=== PATIENT | female | born 1935 | race Caucasian/White ===

== ENCOUNTER → 2016-11-20 | Outpatient (CLI) | payer BC ==
[~2016-11-20] MED LIST: ASPCH81X PO; ATOR-22 PO; BIMA0.01 OP; CEPH500C PO; CHOL100010 PO; CLC100X PO; CLOP1TAB15 PO; DOCU-94 PO; FLV1 PO; FOLI1TAB7 PO; POLY335025 PO; VTMB122500 PO
--- NOTE | 2016-11-20 14:02 | DIAGNOSTIC IMAGING REPORT ---
BILATERAL CAROTID DOPPLER STUDY HISTORY: Venous occlusion CENTRAL RETINAL VEIN OCCLUSION COMPARISON: None. TECHNIQUE: Real-time, grayscale, and color Doppler sonography of the carotid arteries was performed. Imaging reviewed in the transverse and longitudinal planes. All measurements were calculated based on NASCET criteria. FINDINGS: Antegrade flow is seen in the bilateral vertebral arteries. The brachial pressures are hemodynamically similar. Mild plaque formation bilaterally The peak systolic velocity within the right ICA is 72. The right systolic ratio is 1.0. The peak systolic velocity within the left ICA is 70. The left systolic ratio is 1.0. IMPRESSION: No hemodynamically significant stenosis seen within the carotid arteries. Mild plaque formation bilaterally Electronically signed by: Juan Skaggs M.D. 11/20/2016 2:00 PM Dictated Date/Time: 11/20/2016 1:58 PM
--- NOTE | 2016-11-24 10:42 | CODING QUERY MEDICAL NECESSITY ---
SUPPORTING DIAGNOSIS NEEDED A supporting diagnosis is required for the test/procedure performed on this patient in order for us to be reimbursed by the patient's insurance. Please provide a supporting diagnosis for the following test/procedure listed below next to the test name along with your signature. *If there is no additional diagnosis for this patient that would support the following test/procedure please document that below next to the test/procedure. Test(s)/Procedure(s) that require a supporting diagnosis: * CAROTID DOPPLER DIAGNOSIS: * DOS: 11/20/16 Provider Signature: Date: Thank you Inez Lovell [employer] Management Once completed, please kindly fax back to [phone] For questions please call [phone]
== END | disposition home or self-care (01) ==
LOC: C.ULTR 12:52
PROVIDERS: ATTEND Internal Medicine
DX: H34.8192 Central retinal vein occlusion, unspecified eye, stable (principal)

== ENCOUNTER → 2017-02-25 | Outpatient (CLI) | payer BC ==
[~2017-02-25] MED LIST changes: +CLOP1TAB5 PO; +ELQ25 PO; +LPR25 PO; +LPT/20 PO; +VTMB12 PO
--- NOTE | 2017-02-25 13:16 | MAMMOGRAPHY REPORT ---
BILATERAL DIGITAL SCREENING MAMMOGRAM TOMOSYNTHESIS WITH CAD: 02/25/2017 CLINICAL HISTORY: Asymptomatic. Personal history of breast cancer. TECHNIQUE: Breast tomosynthesis in addition to standard 2D mammography was performed. Current study was also evaluated with a Computer Aided Detection (CAD) system. COMPARISON: Comparison is made to exams dated: 02/28/2016 mammogram, 02/25/2016 mammogram, 02/21/2015 ma mmogram, 02/20/2014 mammogram, 08/29/2013 mammogram, and 02/23/2013 mammogram - [facility] nter. BREAST COMPOSITION: The tissue of both breasts is heterogeneously dense, which may obscure small ma sses. FINDINGS: There is evidence of prior treatment at the right breast, and asymmetry of the size of the breasts, left greater than right. There are scattered benign-appearing coarse calcifications bilat erally. Vascular calcification within the right breast. No new suspicious mass, architectural dist ortion or cluster of microcalcifications is seen. IMPRESSION: ACR BI-RADS CATEGORY 1: NEGATIVE There is no mammographic evidence of malignancy. A 1 year screening mammogram is recommended. The p atient will receive written notification of the results. Approximately 10% of breast cancers are not detected with mammography. A negative mammographic repor t should not delay biopsy if a clinically suggestive mass is present. Ayala Arce M.D. ay/:02/25/2017 08:12:36 Dean Of Graduate Studies: Haylee FONSECA)(Cruz), [facility] letter sent: Normal 1/2 BI-RADS Code: ACR BI-RADS Category 1: Negative
== END | disposition home or self-care (01) ==
LOC: C.MAMM 07:16
PROVIDERS: ATTEND Internal Medicine
DX: Z12.31 Encounter for screening mammogram for malignant neoplasm of breast (principal); Z85.3 Personal history of malignant neoplasm of breast

== ENCOUNTER 2017-03-21 21:19 | Emergency (ER) | payer BC ==
[~2017-03-21] VITALS: Ht 152.4 cm; Wt 45.4 kg
[~2017-03-21 21:19] MED LIST changes: -CEPH500C PO; -CLOP1TAB5 PO; -DOCU-94 PO; -ELQ25 PO; -FOLI1TAB7 PO; -LPR25 PO; -LPT/20 PO; -VTMB12 PO
[2017-03-21 21:23] VITALS: TEMP 36.4; Ht 152.4 cm; Wt 45.4 kg
[2017-03-21 21:25] VITALS: O2SAT 98
[2017-03-21] MEDS ORDERED: SODIUM CHLORIDE 0.9% 500ML 500 ML IV STA (21:35)
--- NOTE | 2017-03-21 21:51 | EMERGENCY ROOM VISIT NOTE ---
History Report prepared by Anastasia: Magen Vizcarra Under the Supervision of: Dr. Carlos Story M.D. First contact with patient: 21:29 Chief Complaint: NEURO SYMPTOMS Stated Complaint: LEFT HAND NUMBNESS, SLURRING OF WORDS History of Present Illness The patient is an 81 year old female with a history of TIA who presents to the Emergency Room with resolved left hand numbness that occurred just prior to arrival. The patient was also told that she was slurring her speech. Nursing staff noted left-sided facial droop upon arrival. Her symptoms lasted about 20 minutes in total. She had a slight headache when she was experiencing these symptoms. Her left leg was asymptomatic. She had chest tightness earlier in the day before the onset of her neurologic symptoms. The patient had a slight cough today. The patient denies fevers, shortness of breath, or changes in urinary habits. The patient is feeling tired but did sleep fine last night. She states that she has been eating and drinking. She notes that her 's was yesterday. The patient has a history of ocular stroke and TIA. She is on Plavix and Aspirin. The patient follows up with Dr. Plascencia. Source of History: patient, nursing staff Onset: just prior to arrival Position: hand (left) Quality: numbness Timing: resolved Associated Symptoms: + headache, + cough, + chest pain, No fevers, No SOB, No urinary symptoms Review of Systems See HPI for pertinent positives & negatives. A total of 10 systems reviewed and were otherwise negative. Past Medical & Surgical Medical Problems: (1) Bilateral pulmonary embolism (2) History of osteoporosis (3) Hx of MTHFR mutation (4) Intraductal carcinoma of breast (5) TIA (transient ischemic attack) (6) Uterine prolapse Surgical Problems: (1) History of hysterectomy Family History CVA BROTHER FH: CAD (coronary artery disease) FATHER Social History Smoking Status: Never Smoker Alcohol Use: none Marital Status: Housing Status: lives with family Occupation Status: retired Current/Historical Medications Scheduled Aspirin (Aspirin Chewable), 81 MG PO QAM Atorvastatin (Lipitor), 1 TAB PO QAM Bimatoprost (Lumigan), 1 DROPS OP BID Cephalexin Monohydrate (Keflex), 500 MG PO TID Cholecalciferol (Vitamin D), 1,000 UNITS PO DAILY Clopidogrel (Plavix), 1 TAB PO QAM Cyanocobalamin (Vitamin B-12), 2,500 MCG PO QAM Docusate Sodium (Colace), 200 MG PO BID Folic Acid (Folvite), 1 MG PO DAILY Polyethylene Glycol 3350 (Miralax), 17 GM PO DAILY Allergies Coded Allergies: Tetanus Toxoid (Verified Allergy, Mild, SWELLING AND REDNESS, 12/17/15) Physical Exam Vital Signs Date Time Temp Pulse Resp B/P (MAP) Pulse Ox O2 Delivery O2 Flow Rate FiO2 03/21/17 22:41 73 03/21/17 22:27 134/84 03/21/17 22:10 143/93 03/21/17 21:49 70 20 03/21/17 21:41 73 03/21/17 21:33 143/93 03/21/17 21:25 98 Room Air 03/21/17 21:23 36.4 80 18 134/73 100 Room Air Physical Exam GENERAL: Patient is in no acute distress. HEENT: No acute trauma, normocephalic atraumatic, mucous membranes moist, no nasal congestion, no scleral icterus. NECK: No stridor, no adenopathy, no meningismus, trachea is midline. LUNGS: Clear to auscultation bilaterally, no wheeze, no rhonchi, breath sounds equal. HEART: Without murmurs gallops or rubs, regular rate and rhythm. ABDOMEN: Soft, nontender, bowel sounds positive, no hernias, no peritonitis. EXTREMITIES: No cyanosis or edema, full range of motion of all the joints without pain or difficulty, no signs for acute trauma. NEUROLOGIC: Oriented x 3, no acute motor or sensory deficits, no focal weakness , no facial droop or speech slur, no pronator drift or cerebellar dysfunction. SKIN: No rash, no jaundice, no diaphoresis. Medical Decision & Procedures ER Provider Diagnostic Interpretation: X-ray results as stated below per interpretation by me and the radiologist: Radiology results as stated below per my review and radiologist interpretation: SINGLE VIEW CHEST CLINICAL HISTORY: Strokelike symptoms. FINDINGS: An AP, portable, upright chest radiograph is compared to study dated 07/25/2014 and correlated with chest CT dated 08/23/2014. The examination is degraded by portable technique and patient rotation. The heart is mildly enlarged and there is atherosclerotic calcification of the thoracic aorta. The pulmonary vasculature is noncongested. Biapical scarring and fibrosis is similar to previous. Subpleural reticulation and subpleural densities are again noted. The largest projects over the right lung base. These are similar to the 2014 examination. There is no evidence of superimposed airspace consolidation. No pleural effusion or pneumothorax is seen. The skeletal structures are osteopenic. The bony thorax is grossly intact. IMPRESSION: 1. No acute cardiopulmonary abnormality is identified. 2. Cardiomegaly without radiographic evidence of congestive failure. 3. Chronic parenchymal changes with bilateral upper lobe scarring/fibrosis and subpleural densities are similar to prior studies dated 2013. Electronically signed by: Carlos Fernández M.D. 03/21/2017 10:15 PM Dictated Date/Time: 03/21/2017 10:[address] SCAN OF THE BRAIN WITHOUT IV CONTRAST CLINICAL HISTORY: Left hand numbness. Slurred speech. COMPARISON STUDY: CT of the brain dated 04/17/2014. TECHNIQUE: Unenhanced axial CT scan of the brain is performed from the vertex to the skull base. CT DOSE: 537.48 mGy.cm FINDINGS: Brain parenchyma: There are age-related involutional changes noting mild subcortical and periventricular microangiopathic change. There is no hemorrhage, mass effect, or evidence of acute territorial ischemia by CT criteria. Martel-white matter is preserved. No extra-axial fluid collection is seen. Ventricles, sulci, cisterns: Prominent secondary to involutional change. Intracranial vasculature: There is atherosclerotic calcification of the cavernous carotid and vertebral arteries. Calvarium: Unremarkable. Sinuses and mastoids: The visualized paranasal sinuses are clear. There are trace mastoid effusions. Orbits: The bony orbits are grossly intact. IMPRESSION: There is no hemorrhage, mass effect, or evidence of acute territorial ischemia by CT criteria. Electronically signed by: Carlos Fernández M.D. 03/21/2017 10:30 PM Dictated Date/Time: 03/21/2017 10:28 PM Laboratory Results 03/21/17 21:50 Red Blood Count 3.95, Mean Corpuscular Volume 93.7, Mean Corpuscular Hemoglobin 30.1, Mean Corpuscular Hemoglobin Concent 32.2, Mean Platelet Volume 9.3, Neutrophils (%) (Auto) 76.3, Lymphocytes (%) (Auto) 11.0, Monocytes (%) (Auto) 11.9, Eosinophils (%) (Auto) 0.4, Basophils (%) (Auto) 0.3, Neutrophils # (Auto ) 5.91, Lymphocytes # (Auto) 0.85, Monocytes # (Auto) 0.92, Eosinophils # (Auto ) 0.03, Basophils # (Auto) 0.02 03/21/17 21:50 Test 03/21/17 21:50 03/21/17 22:55 White Blood Count 7.74 K/uL (4.8-10.8) Red Blood Count 3.95 M/uL (4.2-5.4) Hemoglobin 11.9 g/dL (12.0-16.0) Hematocrit 37.0 % (37-47) Mean Corpuscular Volume 93.7 fL (80-100) Mean Corpuscular Hemoglobin 30.1 pg (25-34) Mean Corpuscular Hemoglobin Concent 32.2 g/dl (32-36) Platelet Count 232 K/uL (130-400) Mean Platelet Volume 9.3 fL (7.4-10.4) Neutrophils (%) (Auto) 76.3 % Lymphocytes (%) (Auto) 11.0 % Monocytes (%) (Auto) 11.9 % Eosinophils (%) (Auto) 0.4 % Basophils (%) (Auto) 0.3 % Neutrophils # (Auto) 5.91 K/uL (1.4-6.5) Lymphocytes # (Auto) 0.85 K/uL (1.2-3.4) Monocytes # (Auto) 0.92 K/uL (0.11-0.59) Eosinophils # (Auto) 0.03 K/uL (0-0.5) Basophils # (Auto) 0.02 K/uL (0-0.2) RDW Standard Deviation 48.4 fL (36.4-46.3) RDW Coefficient of Variation 13.9 % (11.5-14.5) Immature Granulocyte % (Auto) 0.1 % Immature Granulocyte # (Auto) 0.01 K/uL (0.00-0.02) Prothrombin Time 10.4 SECONDS (9.0-12.0) Prothromb Time International Ratio 1.0 (0.9-1.1) Activated Partial Thromboplast Time 25.8 SECONDS (21.0-31.0) Partial Thromboplastin Ratio 1.0 Anion Gap 7.0 mmol/L (3-11) Est Creatinine Clear Calc Drug Dose 40.7 ml/min Estimated GFR () 85.4 Estimated GFR (Non- 73.7 BUN/Creatinine Ratio 47.5 (10-20) Calcium Level 8.3 mg/dl (8.5-10.1) Total Creatine Kinase 139 U/L (26-192) Creatine Kinase MB 5.6 ng/ml (0.5-3.6) Creatine Kinase MB Ratio 4.0 (0-3.0) Troponin I 0.016 ng/ml (0-0.045) Chemistry Specimen Hemolysis Urine Color YELLOW Urine Appearance CLOUDY (CLEAR) Urine pH 5.5 (4.5-7.5) Urine Specific Hooper 1.024 (1.000-1.030) Urine Protein NEG (NEG) Urine Glucose (UA) NEG (NEG) Urine Ketones TRACE (NEG) Urine Occult Blood 1+ (NEG) Urine Nitrite NEG (NEG) Urine Bilirubin NEG (NEG) Urine Urobilinogen NEG (NEG) Urine Leukocyte Esterase MODERATE (NEG) Urine WBC (Auto) >30 /hpf (0-5) Urine RBC (Auto) 0-4 /hpf (0-4) Urine Hyaline Casts (Auto) 5-10 /lpf (0-5) Urine Epithelial Cells (Auto) 20-30 /lpf (0-5) Urine Bacteria (Auto) NEG (NEG) Urine Yeast (Auto) (NONE PRSENT) Laboratory results reviewed by me. Medications Administered Medications (Trade) Dose Ordered Sig/Brandy Route Start Time Stop Time Status Last Admin Dose Admin Sodium Chloride 500 ml @ 999 mls/hr Q31M STAT IV 03/21/17 21:35 03/21/17 22:05 DC 03/21/17 21:57 999 MLS/HR Cephalexin Monohydrate (Keflex Cap) 500 mg NOW STAT PO 03/22/17 00:00 03/22/17 00:01 DC 03/22/17 00:07 500 MG ECG Indication: other (neuro symptoms) Rate (beats per minute): 73 Rhythm: sinus rhythm Findings: nonspecific-ST abn (diffuse), PVC Comparison ECG Date: 2013 Change: no significant change ED Course 2129: The patient was evaluated in room C12b. A complete history and physical exam was performed. 213: NSS 500 ml @ 999 mls/hr. 2244: Discussed the findings with the patient. She would like to go home. The family is comfortable taking her home. We are still waiting on her urine labs. 2354: Reassessed the patient. Discussed the urine findings. She will be discharged. 0000: Keflex 500 mg PO. Medical Decision Differential diagnosis includes TIA or CVA, intracranial bleeding, exhaustion, electrolyte imbalance, anemia, dehydration, dysrhythmia, UTI. There is no leukocytosis or concerning anemia. No significant electrolyte abnormality or kidney failure. There is no hepatitis. Brain CT shows some older changes, no acute bleed or mass effect. Chest x-ray shows some chronic findings, no pneumonia or CHF. EKG shows a sinus rhythm, no acute ischemia. Urinalysis does suggest infection, urine culture is pending. On exam, the patient has absolutely no neurologic deficits. No speech slur. Her symptoms have resolved. The patient received IV saline and oral Keflex, she has done well. She has had no recurrence of symptoms. I had a long talk with the patient and her family, we have decided on discharge. The patient is being discharged to follow with her doctors office. She will return for any return of symptoms. She will continue her Plavix and aspirin. In short, the patient appears to have suffered a TIA, it's possible that her urinary infection could also be contributing to her presentation. She understands. I do believe she is stable for discharge. Medication Reconciliation: I attest that I have personally reviewed the patient' s current medication list. Blood Pressure Screening: Patient was found to have a mildly elevated blood pressure and will be referred to her doctor for follow-up. Impression Primary Impression: TIA (transient ischemic attack) Additional Impression: UTI (urinary tract infection) Scribe Attestation The scribe's documentation has been prepared under my direction and personally reviewed by me in its entirety. I confirm that the note above accurately reflects all work, treatment, procedures, and medical decision making performed by me. Departure Information Dispostion Home / Self-Care Prescriptions Cephalexin Monohydrate (Keflex) 500 Mg Cap 500 MG PO TID for 7 Days, #21 CAP Prov: Carlos Story M.D. 03/22/17 Referrals Neo Plascencia MD (PCP) Forms HOME CARE DOCUMENTATION FORM, IMPORTANT VISIT INFORMATION Patient Instructions My [facility] [place] Additional Instructions continue your meds as before stay well hydrated proper rest is garcia keflex 3x per day for 1 week for the urine see your fam md this week return for worsening symptoms or return of symptoms Problem Qualifiers
[2017-03-21] MEDS ORDERED: FOLI1TAB7 PO (21:59)
[2017-03-21] MEDS ORDERED: DOCU-94 PO (21:59)
[2017-03-21] MEDS ORDERED: CHOL100010 PO (21:59)
[2017-03-21 22:01] LABS: BASO % 0.3 %; BASO ABS # 0.02 K/uL (0-0.2); COMPLETE YES; EOS % 0.4 %; IG% 0.1 %; LYMPH ABS # 0.85 K/uL (1.2-3.4); MEAN CELL VOLUME 93.7 fL (80-100); MEAN CORPUSCULAR HEMOGLOBIN 30.1 pg (25-34); MEAN CORPUSCULAR HGB CONC 32.2 g/dl (32-36); MEAN PLATELET VOLUME 9.3 fL (7.4-10.4); MONO % 11.9 %; NEUT % 76.3 %; PLATELET COUNT 232 K/uL (130-400); RED BLOOD COUNT 3.95 M/uL (4.2-5.4); WHITE BLOOD COUNT 7.74 K/uL (4.8-10.8)
--- NOTE | 2017-03-21 22:17 | DIAGNOSTIC IMAGING REPORT ---
SINGLE VIEW CHEST CLINICAL HISTORY: Strokelike symptoms. FINDINGS: An AP, portable, upright chest radiograph is compared to study dated 07/25/2014 and correlated with chest CT dated 08/23/2014. The examination is degraded by portable technique and patient rotation. The heart is mildly enlarged and there is atherosclerotic calcification of the thoracic aorta. The pulmonary vasculature is noncongested. Biapical scarring and fibrosis is similar to previous. Subpleural reticulation and subpleural densities are again noted. The largest projects over the right lung base. These are similar to the 2013 examination. There is no evidence of superimposed airspace consolidation. No pleural effusion or pneumothorax is seen. The skeletal structures are osteopenic. The bony thorax is grossly intact. IMPRESSION: 1. No acute cardiopulmonary abnormality is identified. 2. Cardiomegaly without radiographic evidence of congestive failure. 3. Chronic parenchymal changes with bilateral upper lobe scarring/fibrosis and subpleural densities are similar to prior studies dated 2013. Electronically signed by: Carlos Fernández M.D. 03/21/2017 10:15 PM Dictated Date/Time: 03/21/2017 10:12 PM
[2017-03-21 22:20] LABS: BUN/CREATININE RATIO 47.5 (10-20); CREATININE 0.75 mg/dl (0.60-1.20); POTASSIUM 4.3 mmol/L (3.5-5.1)
[2017-03-21 22:23] LABS: CALCIUM 8.3 mg/dl (8.5-10.1); PROTHROMBIN TIME (PATIENT) 10.4 SECONDS (9.0-12.0)
--- NOTE | 2017-03-21 22:32 | DIAGNOSTIC IMAGING REPORT ---
CT SCAN OF THE BRAIN WITHOUT IV CONTRAST CLINICAL HISTORY: Left hand numbness. Slurred speech. COMPARISON STUDY: CT of the brain dated 04/17/2014. TECHNIQUE: Unenhanced axial CT scan of the brain is performed from the vertex to the skull base. CT DOSE: 537.48 mGy.cm FINDINGS: Brain parenchyma: There are age-related involutional changes noting mild subcortical and periventricular microangiopathic change. There is no hemorrhage, mass effect, or evidence of acute territorial ischemia by CT criteria. Martel-white matter is preserved. No extra-axial fluid collection is seen. Ventricles, sulci, cisterns: Prominent secondary to involutional change. Intracranial vasculature: There is atherosclerotic calcification of the cavernous carotid and vertebral arteries. Calvarium: Unremarkable. Sinuses and mastoids: The visualized paranasal sinuses are clear. There are trace mastoid effusions. Orbits: The bony orbits are grossly intact. IMPRESSION: There is no hemorrhage, mass effect, or evidence of acute territorial ischemia by CT criteria. Electronically signed by: Carlos Fernández M.D. 03/21/2017 10:30 PM Dictated Date/Time: 03/21/2017 10:28 PM
[2017-03-21 23:10] LABS: URINE APPEARANCE CLOUDY (CLEAR); URINE BILIRUBIN NEG (NEG); URINE COLOR YELLOW; URINE EPITHELIAL CELL AUTO 20-30 /lpf (0-5); URINE NITRITE NEG (NEG); URINE PH 5.5 (4.5-7.5); URINE SPECIFIC GRAVITY 1.024 (1.000-1.030); UROBILINOGEN NEG (NEG); ZZUR CULT IF INDIC CLEAN CATCH YES
[2017-03-21 23:19] LABS: MANUAL MICROSCOPIC REQUIRED? NO; REVIEW REQ? YES
[2017-03-22] MEDS ORDERED: CEPHALEXIN MONOHYDRATE 250 MG CAP PO STA
[2017-03-22] MEDS ORDERED: CEPH500C PO (00:02)
[2017-03-22 00:11] VITALS: BP 126/79; PULSE 72; O2SAT 100
[2017-08-18] MEDS ORDERED: LPT/20 PO (22:34)
[2017-09-16] MEDS ORDERED: ELQ25 PO (17:01)
[2017-09-16] MEDS ORDERED: LPR25 PO (17:01)
== END 2017-03-22 00:12 | disposition home or self-care (01) ==
LOC: C.EDB 21:20 → C.EDA 03-22 00:12
DX: G45.9 Transient cerebral ischemic attack, unspecified (principal); N39.0 Urinary tract infection, site not specified; R20.0 Anesthesia of skin; R47.81 Slurred speech; R29.810 Facial weakness; Z86.73 Personal history of transient ischemic attack (TIA), and cerebral infarction without residual deficits; Z86.711 Personal history of pulmonary embolism; M81.0 Age-related osteoporosis without current pathological fracture; N81.4 Uterovaginal prolapse, unspecified; Z82.49 Family history of ischemic heart disease and other diseases of the circulatory system; Z79.82 Long term (current) use of aspirin; Z79.02 Long term (current) use of antithrombotics/antiplatelets; Z79.899 Other long term (current) drug therapy

== ENCOUNTER → 2017-05-06 | Outpatient (CLI) | payer BC ==
[~2017-05-06] MED LIST changes: -CLC100X PO; +DOCU-94 PO; -FLV1 PO; +FOLI1TAB7 PO
== END | disposition home or self-care (01) ==
LOC: C.LABSPEC 16:57
PROVIDERS: ATTEND Podiatrist Foot & Ankle Surgery
DX: L60.0 Ingrowing nail (principal)

== ENCOUNTER → 2017-05-07 | Outpatient (CLI) | payer BC ==
--- NOTE | 2017-05-07 09:01 | DIAGNOSTIC IMAGING REPORT ---
BRAIN WITHOUT CONTRAST HISTORY: 81 years Female acute left-sided arm numbness with history of remote breast cancer. History of recent TIA COMPARISON: Head CT 03/21/2017 MRI brain 04/17/2014 TECHNIQUE: Multiplanar multisequence MRI of the brain was obtained without contrast FINDINGS: There is no evidence of restricted diffusion to suggest acute ischemia. Corpus callosum, brainstem, optic chiasm, pituitary gland, pineal gland and cerebellar tonsils appear unremarkable. There is increased signal within the left transverse dural venous sinus as seen on images 14 through 18 of the sagittal T1 FLAIR series and images 20 and 21 of the coronal T2 series suggesting slow flow with decreased signal seen essentially within the lumen. There is mild to moderate cerebral atrophy. No acute intracranial hemorrhage, midline shift, abnormal extra-axial collections, hydrocephalus or intracranial mass identified. Scattered areas of T2 prolongation are again seen within the subcortical, deep and periventricular white matter of the trochanters bilaterally which appears similar from comparison study dated 04/17/2014 suggesting chronic Yris ischemic changes. The remaining flow voids at the level of the skull base appear patent and normal. The orbits are symmetric. There is a trace right mastoid effusion. Mild ethmoid sinus disease noted. IMPRESSION: 1. No acute intracranial abnormality. Negative for acute ischemia. 2. Mild to moderate cerebral atrophy with background chronic microvascular ischemic changes, stable from comparison study dated 04/17/2014. 3. Mildly increased signal of the left transverse dural venous sinus suggests slow flow rather than thrombus. If of further clinical concern, this could be evaluated with an MRV of the brain. The above report was generated using voice recognition software. It may contain grammatical, syntax or spelling errors. Electronically signed by: Jonathan Helton M.D. 05/07/2017 8:59 AM Dictated Date/Time: 05/07/2017 8:49 AM
== END | disposition home or self-care (01) ==
LOC: C.MRI 07:58
PROVIDERS: ATTEND Internal Medicine
DX: G45.8 Other transient cerebral ischemic attacks and related syndromes (principal); R20.0 Anesthesia of skin

== ENCOUNTER → 2017-06-03 | Outpatient (CLI) | payer BC ==
[~2017-06-03] MED LIST changes: +OPTIRAY 320 IV PRN
--- NOTE | 2017-06-03 09:26 | DIAGNOSTIC IMAGING REPORT ---
HEAD ANGIO WITH CONTRAST CLINICAL HISTORY: 81 years-old Female presenting with mildly increased signal within the left transverse dural venous sinus on prior MR, CT for further evaluation. TECHNIQUE: Multidetector CT angiography of the head was performed after the administration of intravenous contrast. IV contrast: 119 mL of Optiray 320. A dose lowering technique was used consistent with the principles of ALARA (as low as reasonably achievable). COMPARISON: MR brain from 05/07/2017. CT DOSE (mGy.cm): The estimated cumulative dose is 76.03 mGy.cm. 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 Cortical veins and dural venous sinuses patent without evidence of thrombus. Mild atherosclerosis of the cavernous portions of the internal carotid arteries without significant narrowing. Anterior and posterior arterial circulations patent without evidence of aneurysm. No evidence of hydrocephalus. Brain parenchyma within normal limits allowing for the phase of contrast. Orbits normal. Paranasal sinuses and mastoid air cells clear. IMPRESSION: No evidence of dural venous sinus thrombosis. No vascular abnormality. Electronically signed by: Sebastián Person M.D. 06/03/2017 9:25 AM Dictated Date/Time: 06/03/2017 9:20 AM
== END | disposition home or self-care (01) ==
LOC: C.CTS 08:49
PROVIDERS: ATTEND Internal Medicine
DX: R90.89 Other abnormal findings on diagnostic imaging of central nervous system (principal)

== ENCOUNTER 2017-09-15 12:47 | Inpatient (IN) | payer BC, OTHER ==
[~2017-09-15] VITALS: Ht 152.4 cm; Wt 46.5 kg
[~2017-09-15 12:47] MED LIST changes: -ATOR-22 PO; -FOLI1TAB7 PO; +FOLI1TAB8 PO; +LPT20 PO; -OPTIRAY 320 IV PRN
--- NOTE | 2017-09-15 13:23 | EMERGENCY ROOM VISIT NOTE ---
History Report prepared by Anastasia: Lianne Mojica Under the Supervision of: Dr. Carlos Story M.D. First contact with patient: 12:54 Chief Complaint: TIA Stated Complaint: TIA, L HAND NUMBNESS, SLURRING WORDS History of Present Illness The patient is an 82 year old female who presents to the Emergency Room with complaints of persistent left hand numbness starting less than 1 hour ago. She has a history of TIA. She was feeling unwell this morning. She felt like something might have been happening with her blood pressure. A little less than 1 hour ago, she started having numbness in her left hand. The numbness has spread into her left arm and left face. She had some slurred speech. She does not have any numbness in her leg. She has had these same symptoms before with her previous TIA. Her daughter came to pick her up and found that her speech was very slurred. She is currently improved according to her daughter. The patient states that she does feel improved now. She denies any headache, chest pain, urinary symptoms, or fever. She is on Plavix and baby aspirin. She had been feeling well yesterday. She denies any history of atrial fibrillation. Source of History: patient, family Onset: less than 1 hour ago Position: arm (left) Quality: numbness Timing: other (persistent) Associated Symptoms: No fevers, No headache, No chest pain, No urinary symptoms Note: Pt reports speech slur, left face numbness. Review of Systems See HPI for pertinent positives & negatives. A total of 10 systems reviewed and were otherwise negative. Past Medical & Surgical Medical Problems: (1) Bilateral pulmonary embolism (2) History of osteoporosis (3) Hx of MTHFR mutation (4) Intraductal carcinoma of breast (5) TIA (transient ischemic attack) (6) Uterine prolapse Surgical Problems: (1) History of hysterectomy Family History CVA BROTHER FH: CAD (coronary artery disease) FATHER Social History Smoking Status: Never Smoker Alcohol Use: none Marital Status: Housing Status: lives with family Occupation Status: retired Current/Historical Medications Scheduled Aspirin (Aspirin Chewable), 81 MG PO QAM Atorvastatin (Atorvastatin Calcium), 20 MG PO DAILY Bimatoprost (Lumigan), 1 DROPS OP BID Cholecalciferol (Vitamin D), 1,000 UNITS PO DAILY Clopidogrel (Plavix), 1 TAB PO QAM Cyanocobalamin (Vitamin B-12), 2,500 MCG PO QAM Docusate Sodium (Colace), 200 MG PO BID Folic Acid (Folvite), 1 MG PO DAILY Polyethylene Glycol 3350 (Miralax), 17 GM PO DAILY Allergies Coded Allergies: Tetanus Toxoid (Verified Allergy, Mild, SWELLING AND REDNESS, 09/15/17) Physical Exam Vital Signs Date Time Temp Pulse Resp B/P (MAP) Pulse Ox O2 Delivery O2 Flow Rate FiO2 09/15/17 14:23 91 09/15/17 12:50 36.7 86 18 95/58 97 Physical Exam GENERAL: Patient is in no acute distress. HEENT: No acute trauma, normocephalic atraumatic, mucous membranes moist, no nasal congestion, no scleral icterus. NECK: No stridor, no adenopathy, no meningismus, trachea is midline. LUNGS: Clear to auscultation bilaterally, no wheeze, no rhonchi, breath sounds equal. HEART: Irregular rhythm. No murmurs. Normal rate. ABDOMEN: Soft, nontender, bowel sounds positive, no hernias, no peritonitis. EXTREMITIES: No cyanosis or edema, full range of motion of all the joints without pain or difficulty, no signs for acute trauma. NEUROLOGIC: Oriented x 3, no acute motor or sensory deficits, no focal weakness. No speech slur or facial droop. No cerebellar deficits or pronator drift. SKIN: No rash, no jaundice, no diaphoresis. Medical Decision & Procedures ER Provider Diagnostic Interpretation: Radiology results as stated below per my review and radiologist interpretation: CT SCAN OF THE BRAIN WITHOUT IV CONTRAST CLINICAL HISTORY: Strokelike symptoms. COMPARISON STUDY: CT of the brain dated 06/03/2017. An 03/21/2017 TECHNIQUE: Unenhanced axial CT scan of the brain is performed from the vertex to the skull base. The skull base was scanned twice due to motion artifact. CT DOSE: 795.47 mGy.cm FINDINGS: Brain parenchyma: There are age-related involutional changes noting mild to moderate patchy subcortical and periventricular microangiopathic change. There is no hemorrhage, mass effect, or evidence of acute territorial ischemia by CT criteria. Martel-white matter is preserved. No extra-axial fluid collection is seen. Ventricles, sulci, cisterns: Prominent secondary to involutional change. Intracranial vasculature: There is atherosclerotic calcification of the cavernous carotid and vertebral arteries. Calvarium: Unremarkable. Sinuses and mastoids: The visualized paranasal sinuses are clear. The mastoid air cells are well pneumatized. Orbits: The bony orbits are grossly intact. IMPRESSION: There is no hemorrhage, mass effect, or evidence of acute territorial ischemia by CT criteria. Electronically signed by: Carlos Fernández M.D. 09/15/2017 1:59 PM Dictated Date/Time: 09/15/2017 1:57 PM Laboratory Results 09/15/17 13:25 Red Blood Count 4.25, Mean Corpuscular Volume 92.5, Mean Corpuscular Hemoglobin 29.6, Mean Corpuscular Hemoglobin Concent 32.1, Mean Platelet Volume 9.7, Neutrophils (%) (Auto) 75.6, Lymphocytes (%) (Auto) 11.8, Monocytes (%) (Auto) 11.5, Eosinophils (%) (Auto) 0.7, Basophils (%) (Auto) 0.2, Neutrophils # (Auto ) 6.08, Lymphocytes # (Auto) 0.95, Monocytes # (Auto) 0.93, Eosinophils # (Auto ) 0.06, Basophils # (Auto) 0.02 09/15/17 13:25 Test 09/15/17 13:25 White Blood Count 8.06 K/uL (4.8-10.8) Red Blood Count 4.25 M/uL (4.2-5.4) Hemoglobin 12.6 g/dL (12.0-16.0) Hematocrit 39.3 % (37-47) Mean Corpuscular Volume 92.5 fL (80-100) Mean Corpuscular Hemoglobin 29.6 pg (25-34) Mean Corpuscular Hemoglobin Concent 32.1 g/dl (32-36) Platelet Count 282 K/uL (130-400) Mean Platelet Volume 9.7 fL (7.4-10.4) Neutrophils (%) (Auto) 75.6 % Lymphocytes (%) (Auto) 11.8 % Monocytes (%) (Auto) 11.5 % Eosinophils (%) (Auto) 0.7 % Basophils (%) (Auto) 0.2 % Neutrophils # (Auto) 6.08 K/uL (1.4-6.5) Lymphocytes # (Auto) 0.95 K/uL (1.2-3.4) Monocytes # (Auto) 0.93 K/uL (0.11-0.59) Eosinophils # (Auto) 0.06 K/uL (0-0.5) Basophils # (Auto) 0.02 K/uL (0-0.2) RDW Standard Deviation 48.1 fL (36.4-46.3) RDW Coefficient of Variation 14.3 % (11.5-14.5) Immature Granulocyte % (Auto) 0.2 % Immature Granulocyte # (Auto) 0.02 K/uL (0.00-0.02) Prothrombin Time 10.9 SECONDS (9.0-12.0) Prothromb Time International Ratio 1.0 (0.9-1.1) Activated Partial Thromboplast Time 26.9 SECONDS (21.0-31.0) Partial Thromboplastin Ratio 1.0 Anion Gap 5.0 mmol/L (3-11) Estimated GFR () 75.1 Estimated GFR (Non- 64.8 BUN/Creatinine Ratio 32.0 (10-20) Calcium Level 8.4 mg/dl (8.5-10.1) Magnesium Level 1.9 mg/dl (1.8-2.4) Total Bilirubin 0.4 mg/dl (0.2-1) Direct Bilirubin 0.1 mg/dl (0-0.2) Aspartate Amino Transf (AST/SGOT) 21 U/L (15-37) Alanine Aminotransferase (ALT/SGPT) 25 U/L (12-78) Alkaline Phosphatase 82 U/L (45-117) Troponin I < 0.015 ng/ml (0-0.045) Total Protein 6.9 gm/dl (6.4-8.2) Albumin 3.4 gm/dl (3.4-5.0) Laboratory results reviewed by me. ECG Indication: other Rate (beats per minute): 76 Rhythm: atrial fibrillation Findings: no acute ischemic change, no ectopy, other (diffuse nonspecific T wave change) Comparison ECG Date: 18-Aug-2017 Change: Atrial fibrillation now present. ED Course 1255: The patient was evaluated in room B12B. A complete history and physical exam was performed. 1426: I reevaluated the patient. She is asymptomatic and back to baseline. 1436: I discussed the patient's case with Hilaria Simpson neurology. He recommends the patient stay in the hospital. 1448: I discussed the patient's case with ROLAN Astudillo hospitalist service. The patient will be evaluated for further management. 1452: Upon reexamination the patient is stable. I discussed results and treatment plan with the patient. She verbalizes agreement and understanding. The patient will be evaluated for further management. Medical Decision Differential diagnoses considered include TIA, CVA, intracranial bleeding, electrolyte imbalance, infection, UTI, anemia. There is no leukocytosis or concerning anemia. No significant electrolyte abnormality or kidney failure. EKG shows a rate-controlled atrial fibrillation , no acute ischemia. Cardiac enzyme testing times one is not consistent with acute cardiac injury. Brain CT shows no acute bleed or mass effect. There was no coagulopathy. On exam, no focal neurologic deficits could be found. There was no speech slur. The patient was in the ED for only a short timeframe and her symptoms completely resolved. I spoke to Dr. Caro of neurology. Given the diagnosis of presumed TIA, given the new onset A. fib, given that the patient is already on aspirin and Plavix, admission/observation was felt warranted. I spoke to the patient and case management. The on-call hospitalist was consulted. Medication Reconcilliation Current Medication List: was personally reviewed by me Blood Pressure Screening Patient's blood pressure: Low blood pressure Consults Time Called: 1429 Consulting Physician: Hilaria Simpson neurology Returned Call: [phone] I discussed the patient's case with him. He recommends the patient stay in the hospital. Additional Consults: Time Called: 1440 Consulted Physician: ROLAN Astudillo hospitalist service Returned Call: [phone] Additional Comments: Discussed the patient's case. The patient will be evaluated for further management. Impression Primary Impression: TIA (transient ischemic attack) Additional Impression: Atrial fibrillation Scribe Attestation The scribe's documentation has been prepared under my direction and personally reviewed by me in its entirety. I confirm that the note above accurately reflects all work, treatment, procedures, and medical decision making performed by me. Departure Information Dispostion Being Evaluated By Hospitalist Referrals Neo Plascencia MD (PCP) Patient Instructions My [facility] Stroke History Time Last Known Well 1 hour ago Stroke t-PA Criteria Reviewed Does NOT meet criteria for t-PA Reason t-PA Not Given Treatment not indicated Problem Qualifiers
[2017-09-15 13:45] LABS: BASO % 0.2 %; BASO ABS # 0.02 K/uL (0-0.2); EOS % 0.7 %; EOS ABS # 0.06 K/uL (0-0.5); HEMATOCRIT 39.3 % (37-47); HEMOGLOBIN 12.6 g/dL (12.0-16.0); IG# 0.02 K/uL (0.00-0.02); LYMPH % 11.8 %; LYMPH ABS # 0.95 K/uL (1.2-3.4); MEAN CELL VOLUME 92.5 fL (80-100); MEAN CORPUSCULAR HEMOGLOBIN 29.6 pg (25-34); MEAN CORPUSCULAR HGB CONC 32.1 g/dl (32-36); MEAN PLATELET VOLUME 9.7 fL (7.4-10.4); MONO % 11.5 %; MONO ABS # 0.93 K/uL (0.11-0.59); NEUT % 75.6 %; NEUT ABS # 6.08 K/uL (1.4-6.5); PLATELET COUNT 282 K/uL (130-400); RED CELL DISTRIBUTION WIDTH CV 14.3 % (11.5-14.5); RED CELL DISTRIBUTION WIDTH SD 48.1 fL (36.4-46.3); WHITE BLOOD COUNT 8.06 K/uL (4.8-10.8)
[2017-09-15 13:58] LABS: PTT PATIENT 26.9 SECONDS (21.0-31.0)
--- NOTE | 2017-09-15 14:01 | DIAGNOSTIC IMAGING REPORT ---
CT SCAN OF THE BRAIN WITHOUT IV CONTRAST CLINICAL HISTORY: Strokelike symptoms. COMPARISON STUDY: CT of the brain dated 06/03/2017. An 03/21/2017 TECHNIQUE: Unenhanced axial CT scan of the brain is performed from the vertex to the skull base. The skull base was scanned twice due to motion artifact. CT DOSE: 795.47 mGy.cm FINDINGS: Brain parenchyma: There are age-related involutional changes noting mild to moderate patchy subcortical and periventricular microangiopathic change. There is no hemorrhage, mass effect, or evidence of acute territorial ischemia by CT criteria. Martel-white matter is preserved. No extra-axial fluid collection is seen. Ventricles, sulci, cisterns: Prominent secondary to involutional change. Intracranial vasculature: There is atherosclerotic calcification of the cavernous carotid and vertebral arteries. Calvarium: Unremarkable. Sinuses and mastoids: The visualized paranasal sinuses are clear. The mastoid air cells are well pneumatized. Orbits: The bony orbits are grossly intact. IMPRESSION: There is no hemorrhage, mass effect, or evidence of acute territorial ischemia by CT criteria. Electronically signed by: Carlos Fernández M.D. 09/15/2017 1:59 PM Dictated Date/Time: 09/15/2017 1:57 PM
[2017-09-15 14:07] LABS: ALBUMIN 3.4 gm/dl (3.4-5.0); BLOOD UREA NITROGEN 27 mg/dl (7-18); CALCIUM 8.4 mg/dl (8.5-10.1); CARBON DIOXIDE 28 mmol/L (21-32); CREATININE 0.83 mg/dl (0.60-1.20); GLUCOSE 121 mg/dl (70-99); POTASSIUM 3.1 mmol/L (3.5-5.1); SODIUM 137 mmol/L (136-145)
[2017-09-15 14:12] LABS: ALKALINE PHOSPHATASE 82 U/L (45-117); ALT/SGPT 25 U/L (12-78); AST/SGOT 21 U/L (15-37); TOTAL PROTEIN 6.9 gm/dl (6.4-8.2)
[2017-09-15 15:46] VITALS: BP 111/66; PULSE 78; TEMP 36.7; O2SAT 98; Ht 152.4 cm; Wt 46.5 kg
--- NOTE | 2017-09-15 15:59 | NUR ---
A: PATIENT RESTING IN BED. NO CURRENT C/O LEFT SIDED WEAKNESS OR TINGLING. PEDAL PUSHES AND HAND GRASPS EQUAL AND STRONG. NO SLURRED SPEECH NOTED. TONGUE MIDLINE. RADHA. CURRENTLY IN AFIB. VSS. CODE WORD AND FALL SHEETS COMPLETE AND PLACED ON CHART. SEE EMR FOR FULL ADMISSION ASSESSMENT.
[2017-09-15] MEDS ORDERED: ONDANSETRON INJ 2 MG/ML 2 ML VIAL IV PRN (16:45)
[2017-09-15] MEDS ORDERED: PHARMACIST DISCHARGE MED REC CONSULT PRN (16:45)
[2017-09-15 16:50] VITALS: BP 149/78; PULSE 81; PULSE 88; TEMP 36.5; O2SAT 99
--- NOTE | 2017-09-15 16:50 | NUR ---
A: Admitted to room 215 at this time in stable condition. Ambulated from wheelchair to bed. Gait is slightly unsteady. Yellow socks applied. Patient is A&Ox4. Pleasant and cooperative with care. Denies pain/discomfort. No neurological deficits. front desk monitor applied and reading Afib. Lung sounds are clear on RA. +BS. Urine not visualized at this time. No evidence of skin breakdown. 20g IV in right FA. Oriented to call quiñonez system, phone, and room environment. Patient is agreeable to ring for assistance when she needs to get OOB. Will continue to monitor.
[2017-09-15] MEDS ORDERED: HEPARIN IV BOLUS 3,000 UNIT in SYRINGE 0 ML IV SCH (17:30)
[2017-09-15] MEDS ORDERED: POTASSIUM CHLORIDE 20 MEQ TABCR PO ONE (17:30)
[2017-09-15] MEDS ORDERED: HEPARIN 25,000 UNIT/500ML D5W 500 ML IV PRN (17:30)
[2017-09-15] MEDS: ATORVASTATIN 40 MG TAB PO SCH (17:42)
[2017-09-15] MEDS ORDERED: CLOP1TAB5 PO (18:23)
[2017-09-15] MEDS ORDERED: VTMB12 PO (18:23)
--- NOTE | 2017-09-15 18:55 | History and Physical ---
History & Physical Date & Time of Service: Sep 15, 2017 at 18:24 Chief Complaint: TIA Primary Care Physician: Neo Plascencia MD History of Present Illness Source: patient, family (daughter at bedside ), clinic records, hospital records This is a 82yo F with a PMH of multiple TIAs, HLD, CRVO of R eye, MTHFR mutation and osteoporosis who presents with L sided numbness and slurred speech that begun earlier today and have since resolved. Patient woke up today feeling "funny", which she described as fatigued and lightheaded. A few hours ago, patient noticed numbness in her left hand that slowly expanded to include her L arm and L side of the face. Also noticed slurred speech. Called her daughter to bring her to ED for further evaluation. By the time patient was evaluated, symptoms had resolved completely. States that this episode is very similar in nature to previous TIAs. Per chart review, patient has been seen at [facility] for 3 TIAs since 2013.Is on dual antiplatelet therapy for h/o TIAs. Follows with Dr. Caro for neurology. Initial EKG in ER showed atrial fibrillation. Patient denies any history of A fib but endorses a bilateral PE in 2007, which prompted a hypercoagulability workup showing a MTHFR mutation. Patient is unsure if she has even been on coumadin. 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 Denies any facial droop, confusion, paresthesias, difficulty with gait. Endorses feeling generally weak today. Denies fever, chills, palpitations, CP, SOB, abdominal pain, dysuria. Of note, was most recently admitted to the [facility] surgical service from Aug.19- Aug.25 for an SBO that resolved with NG tube. Had multiple bouts of diarrhea this past Thursday after patient's colace dose was increased. Was instructed by her PCP to stop taking it. Has not had a bowel movement since Thursday. Past Medical/Surgical History Medical Problems: (1) Bilateral pulmonary embolism Status: Resolved (2) History of osteoporosis Status: Chronic (3) Hx of MTHFR mutation Status: Chronic (4) Intraductal carcinoma of breast Permanent Comment: s/p lumpectomy Status: Resolved (5) TIA (transient ischemic attack) Status: Chronic (6) Uterine prolapse Status: Chronic Surgical Problems: (1) History of hysterectomy Status: Resolved Family History CVA BROTHER FH: CAD (coronary artery disease) FATHER Social History Smoking Status: Never Smoker Alcohol Use: none Housing status: lives alone Occupational Status: retired Immunizations History of Influenza Vaccine: Yes History of Tetanus Vaccine?: Yes History of Pneumococcal: Yes Pneumococcal Date: Dec 11, 2007 History of Hepatitis B Vaccine: Unknown Multi-Drug Resistant Organisms History of MDRO: Yes Type of MDRO: VRE Allergies Coded Allergies: Tetanus Toxoid (Verified Allergy, Mild, SWELLING AND REDNESS, 09/15/17) Home Medications Scheduled Aspirin (Aspirin Chewable), 81 MG PO QAM Atorvastatin (Atorvastatin Calcium), 20 MG PO DAILY Bimatoprost (Lumigan), 1 DROPS OP BID Cholecalciferol (Vitamin D), 1,000 UNITS PO DAILY Clopidogrel Bisulfate (Plavix), 1 TAB PO DAILY Cyanocobalamin (Vitamin B-12), 1 TAB PO DAILY Docusate Sodium (Colace), 200 MG PO BID Folic Acid (Folvite), 1 MG PO DAILY Polyethylene Glycol 3350 (Miralax), 17 GM PO DAILY Review of Systems Ten systems reviewed and negative except as noted in the HPI. Physical Exam Vital Signs Date Time Temp Pulse Resp B/P (MAP) Pulse Ox O2 Delivery O2 Flow Rate FiO2 09/15/17 16:50 36.5 81 22 149/78 (101) 99 Room Air 09/15/17 16:50 99 Room Air 09/15/17 16:50 36.5 88 22 149/78 (101) 99 Room Air 09/15/17 16:25 75 20 138/81 97 Room Air 09/15/17 15:46 36.7 78 20 111/66 98 Room Air 09/15/17 15:35 78 20 111/66 97 Room Air 09/15/17 14:23 91 09/15/17 12:50 36.7 86 18 95/58 97 General Appearance: WD/WN, no apparent distress Head: normocephalic, atraumatic Eyes: normal inspection (Blind in R eye ), PERRL, EOMI, sclerae normal ENT: normal ENT inspection, hearing grossly normal, pharynx normal (moist mucous membranes ) Neck: supple, no adenopathy, thyroid normal Respiratory/Chest: chest non-tender, lungs clear, normal breath sounds, no respiratory distress, no accessory muscle use Cardiovascular: no murmur, normal peripheral pulses, + irregularly irregular Abdomen/GI: non tender, soft, no organomegaly Back: normal inspection Extremities/Musculoskelatal: normal inspection, no calf tenderness, no pedal edema, normal range of motion Neurologic/Psych: bar turner II-XII nml as tested, no motor/sensory deficits, alert, normal mood/affect, oriented x 3, + pertinent finding (Did not ambulate 2/2 fall risk ) Skin: normal color, warm/dry, no rash Diagnostics Laboratory Results 09/15/17 13:25 Red Blood Count 4.25, Mean Corpuscular Volume 92.5, Mean Corpuscular Hemoglobin 29.6, Mean Corpuscular Hemoglobin Concent 32.1, Mean Platelet Volume 9.7, Neutrophils (%) (Auto) 75.6, Lymphocytes (%) (Auto) 11.8, Monocytes (%) (Auto) 11.5, Eosinophils (%) (Auto) 0.7, Basophils (%) (Auto) 0.2, Neutrophils # (Auto ) 6.08, Lymphocytes # (Auto) 0.95, Monocytes # (Auto) 0.93, Eosinophils # (Auto ) 0.06, Basophils # (Auto) 0.02 09/15/17 13:25 Test 09/15/17 13:25 09/15/17 15:45 09/15/17 19:37 White Blood Count 8.06 K/uL (4.8-10.8) Red Blood Count 4.25 M/uL (4.2-5.4) Hemoglobin 12.6 g/dL (12.0-16.0) Hematocrit 39.3 % (37-47) Mean Corpuscular Volume 92.5 fL (80-100) Mean Corpuscular Hemoglobin 29.6 pg (25-34) Mean Corpuscular Hemoglobin Concent 32.1 g/dl (32-36) Platelet Count 282 K/uL (130-400) Mean Platelet Volume 9.7 fL (7.4-10.4) Neutrophils (%) (Auto) 75.6 % Lymphocytes (%) (Auto) 11.8 % Monocytes (%) (Auto) 11.5 % Eosinophils (%) (Auto) 0.7 % Basophils (%) (Auto) 0.2 % Neutrophils # (Auto) 6.08 K/uL (1.4-6.5) Lymphocytes # (Auto) 0.95 K/uL (1.2-3.4) Monocytes # (Auto) 0.93 K/uL (0.11-0.59) Eosinophils # (Auto) 0.06 K/uL (0-0.5) Basophils # (Auto) 0.02 K/uL (0-0.2) RDW Standard Deviation 48.1 fL (36.4-46.3) RDW Coefficient of Variation 14.3 % (11.5-14.5) Immature Granulocyte % (Auto) 0.2 % Immature Granulocyte # (Auto) 0.02 K/uL (0.00-0.02) Prothrombin Time 10.9 SECONDS (9.0-12.0) Prothromb Time International Ratio 1.0 (0.9-1.1) Activated Partial Thromboplast Time 26.9 SECONDS (21.0-31.0) Partial Thromboplastin Ratio 1.0 Anion Gap 5.0 mmol/L (3-11) Estimated GFR () 75.1 Estimated GFR (Non- 64.8 BUN/Creatinine Ratio 32.0 (10-20) Calcium Level 8.4 mg/dl (8.5-10.1) Magnesium Level 1.9 mg/dl (1.8-2.4) Total Bilirubin 0.4 mg/dl (0.2-1) Direct Bilirubin 0.1 mg/dl (0-0.2) Aspartate Amino Transf (AST/SGOT) 21 U/L (15-37) Alanine Aminotransferase (ALT/SGPT) 25 U/L (12-78) Alkaline Phosphatase 82 U/L (45-117) Total Protein 6.9 gm/dl (6.4-8.2) Albumin 3.4 gm/dl (3.4-5.0) Thyroid Stimulating Hormone (TSH) 2.240 uIu/ml (0.300-4.500) Urine Color YELLOW Urine Appearance CLEAR (CLEAR) Urine pH 5.0 (4.5-7.5) Urine Specific [place] 1.019 (1.000-1.030) Urine Protein NEG (NEG) Urine Glucose (UA) NEG (NEG) Urine Ketones NEG (NEG) Urine Occult Blood TRACE (NEG) Urine Nitrite NEG (NEG) Urine Bilirubin NEG (NEG) Urine Urobilinogen NEG (NEG) Urine Leukocyte Esterase MODERATE (NEG) Urine WBC (Auto) 5-10 /hpf (0-5) Urine RBC (Auto) 0-4 /hpf (0-4) Urine Hyaline Casts (Auto) 1-5 /lpf (0-5) Urine Epithelial Cells (Auto) >30 /lpf (0-5) Urine Bacteria (Auto) NEG (NEG) Troponin I < 0.015 ng/ml (0-0.045) Results Past 24 Hours Test 09/15/17 13:25 09/15/17 15:45 09/15/17 16:45 Range/Units White Blood Count 8.06 4.8-10.8 K/uL Red Blood Count 4.25 4.2-5.4 M/uL Hemoglobin 12.6 12.0-16.0 g/dL Hematocrit 39.3 37-47 % Mean Corpuscular Volume 92.5 80-100 fL Mean Corpuscular Hemoglobin 29.6 25-34 pg Mean Corpuscular Hemoglobin Concent 32.1 32-36 g/dl Platelet Count 282 130-400 K/uL Mean Platelet Volume 9.7 7.4-10.4 fL Neutrophils (%) (Auto) 75.6 % Lymphocytes (%) (Auto) 11.8 % Monocytes (%) (Auto) 11.5 % Eosinophils (%) (Auto) 0.7 % Basophils (%) (Auto) 0.2 % Neutrophils # (Auto) 6.08 1.4-6.5 K/uL Lymphocytes # (Auto) 0.95 1.2-3.4 K/uL Monocytes # (Auto) 0.93 0.11-0.59 K/uL Eosinophils # (Auto) 0.06 0-0.5 K/uL Basophils # (Auto) 0.02 0-0.2 K/uL RDW Standard Deviation 48.1 36.4-46.3 fL RDW Coefficient of Variation 14.3 11.5-14.5 % Immature Granulocyte % (Auto) 0.2 % Immature Granulocyte # (Auto) 0.02 0.00-0.02 K/uL Prothrombin Time 10.9 9.0-12.0 SECONDS Prothromb Time International Ratio 1.0 0.9-1.1 Activated Partial Thromboplast Time 26.9 21.0-31.0 SECONDS Partial Thromboplastin Ratio 1.0 Sodium Level 137 136-145 mmol/L Potassium Level 3.1 3.5-5.1 mmol/L Chloride Level 104 98-107 mmol/L Carbon Dioxide Level 28 21-32 mmol/L Anion Gap 5.0 3-11 mmol/L Blood Urea Nitrogen 27 7-18 mg/dl Creatinine 0.83 0.60-1.20 mg/dl Estimated GFR () 75.1 Estimated GFR (Non- 64.8 BUN/Creatinine Ratio 32.0 10-20 Random Glucose 121 70-99 mg/dl Calcium Level 8.4 8.5-10.1 mg/dl Magnesium Level 1.9 1.8-2.4 mg/dl Total Bilirubin 0.4 0.2-1 mg/dl Direct Bilirubin 0.1 0-0.2 mg/dl Aspartate Amino Transf (AST/SGOT) 21 15-37 U/L Alanine Aminotransferase (ALT/SGPT) 25 12-78 U/L Alkaline Phosphatase 82 45-117 U/L Troponin I < 0.015 0-0.045 ng/ml Total Protein 6.9 6.4-8.2 gm/dl Albumin 3.4 3.4-5.0 gm/dl Thyroid Stimulating Hormone (TSH) 2.240 0.300-4.500 uIu/ml Urine Color YELLOW Urine Appearance CLEAR CLEAR Urine pH 5.0 4.5-7.5 Urine Specific [place] 1.019 1.000-1.030 Urine Protein NEG NEG Urine Glucose (UA) NEG NEG Urine Ketones NEG NEG Urine Occult Blood TRACE NEG Urine Nitrite NEG NEG Urine Bilirubin NEG NEG Urine Urobilinogen NEG NEG Urine Leukocyte Esterase MODERATE NEG Urine WBC (Auto) 5-10 0-5 /hpf Urine RBC (Auto) 0-4 0-4 /hpf Urine Hyaline Casts (Auto) 1-5 0-5 /lpf Urine Epithelial Cells (Auto) >30 0-5 /lpf Urine Bacteria (Auto) NEG NEG Diagnostic Radiology CT head: IMPRESSION: There is no hemorrhage, mass effect, or evidence of acute territorial ischemia by CT criteria. EKG Atrial fibrillation with PVCs at 76 bpm. Non-specific T wave abnormality. Impression Assessment and Plan This is a 82yo F with a PMH of multiple TIAs, HLD, CRVO of R eye, MTHFR mutation and osteoporosis who presents with L sided numbness and slurred speech that begun earlier today and have since resolved. TIA: -L sided paresthesias, expressive aphasia now resolved -Cont aspirin, plavix, increased statin dose to 80mg daily -MRI brain without, carotid dopplers, echo with bubble study -Neuro consult -PT/OT/speech eval -Discharge planning New onset Atrial fibrillation: -No documented history of A fib -Electrolytes, TSH wnl. No sign of infection -In setting of MTHFR mutation, h/o PEs, anticoagulation is indicated -Initiated IV heparin with bolus -Cardio consulted -Monitor on tele HLD: -Fasting lipid panel -Cont statin Osteoporosis: -Cont Vit D Hypokalemia: replaced, recheck in am. Mg in am. DVT Ppx: IV heparin Code status: FULL PCP: Temo Dispo: Discharge planning per stroke set protocol. Patient also >80 and lives alone. Patient seen in collaboration with Dr. Summers. Please see addendum. ADDENDUM: I have seen and examined the patient and agree with the assessment and plan as stated above. Per my exam there was no neurologic deficit. She had some difficulty standing but this was related to chronic back pain. Cont DAPT and heparin drip pending Cards eval/plan. DO Kristopher Level of Care Telemetry Advanced Directives Existing Living Will: No Existing Power of Bsa/Aml Compliance Officer: No Resuscitation Status FULL RESUSCITATION VTE Prophylaxis VTE Risk Assessment Done? Y/N: Yes Risk Level: Moderate Given or contraindicated: Other Anticoagulation Social Service Consult >80 yr.& Lives Alone
[2017-09-15 19:34] VITALS: BP 117/68; PULSE 73; TEMP 36.7; O2SAT 98
[2017-09-15 20:00] VITALS: BP 117/68; PULSE 73; TEMP 36.7; O2SAT 98
--- NOTE | 2017-09-15 20:00 | NUR ---
A: Resting quietly and comfortably. Offers no complaints. No changes noted from initial assessment. See EMR for details. Heparin gtt is infusing at 11 ml/hr. Call quiñonez is within reach. Will continue to monitor.
[2017-09-15] MEDS: BIMATOPROST 0.01% OP SOLN 2.5 ML BTL OP SCH (20:31)
--- NOTE | 2017-09-15 22:02 | DIAGNOSTIC IMAGING REPORT ---
BRAIN WITHOUT CONTRAST HISTORY: Mental status change stroke rule out TECHNIQUE: Multiplanar multisequence MRI of the brain was performed without the use of contrast. COMPARISON STUDY: 05/07/2017 FINDINGS: There are no areas of restricted diffusion to suggest acute infarction. The midline structures are intact. The paranasal sinuses are clear. The mastoid air cells are clear. The ventricles and sulci are within normal limits for age. There is no mass, hematoma, midline shift. The major vascular flow-voids at the skull base are well maintained. Moderate age-related atrophy and chronic small vessel change unaltered compared to the prior study. IMPRESSION: No acute intracranial abnormality. Chronic and age-related change. No change from the prior study. The above report was generated using voice recognition software. It may contain grammatical, syntax or spelling errors. Electronically signed by: Juan Skaggs M.D. 09/15/2017 10:01 PM Dictated Date/Time: 09/15/2017 9:58 PM
--- NOTE | 2017-09-15 22:46 | DIAGNOSTIC IMAGING REPORT ---
CAROTID DOPPLER NECK ART HISTORY: Mental status change Stroke rule out COMPARISON: None. TECHNIQUE: Real-time, grayscale, and color Doppler sonography of the carotid arteries was performed. Imaging reviewed in the transverse and longitudinal planes. All measurements were calculated based on NASCET criteria. FINDINGS: Antegrade flow is seen in the bilateral vertebral arteries. The brachial pressures are hemodynamically similar. Moderate plaque formation bilaterally The peak systolic velocity within the right ICA is 86. The right systolic ratio is 0.95. The peak systolic velocity within the left ICA is 75. The left systolic ratio is 0.7. IMPRESSION: No hemodynamically significant stenosis seen within the carotid arteries. Moderate plaque formation bilaterally The above report was generated using voice recognition software. It may contain grammatical, syntax or spelling errors. Electronically signed by: Juan Skaggs M.D. 09/15/2017 10:45 PM Dictated Date/Time: 09/15/2017 10:44 PM
[2017-09-15 23:29] VITALS: BP 133/77; PULSE 64; TEMP 36.4; O2SAT 98
[2017-09-15 23:59] VITALS: O2SAT 95
--- NOTE | 2017-09-16 | NUR ---
A: Assessment completed. See EMR for full assessment. Patient resting in bed. AAOX4. NIH=0. Denies numbness in extremities. No complaints of chest pain or shortness of breath noted. A-Fib on monitor. HR in the 60's. VSS. Lungs clear on RA. O2 sat 98%. Heparin drip infusing at 11 ml/hr via #20 gauge in left forearm. OOB with assistx1. Call quiñonez within reach.
[2017-09-16 00:01] LABS: PTT PATIENT 32.6 SECONDS (21.0-31.0)
[2017-09-16] MEDS ORDERED: HEPARIN IV BOLUS 3,000 UNIT in SYRINGE 0 ML IV ONE (00:45)
[2017-09-16 03:47] VITALS: BP 128/64; PULSE 66; TEMP 36.6; O2SAT 99
[2017-09-16 04:00] VITALS: O2SAT 94; O2SAT 99
--- NOTE | 2017-09-16 04:00 | NUR ---
A: No change in assessment. Patient resting in bed. No complaints voiced. A-Fib on monitor. HR in he 60's. VSS. Heparin drip infusing at 13 ml/hr (650 units/hr). Call quiñonez within reach.
[2017-09-16 06:38] LABS: BASO % 0.6 %; BASO ABS # 0.03 K/uL (0-0.2); EOS % 2.1 %; HEMATOCRIT 33.2 % (37-47); HEMOGLOBIN 10.6 g/dL (12.0-16.0); LYMPH % 19.9 %; LYMPH ABS # 0.93 K/uL (1.2-3.4); MEAN CELL VOLUME 92.2 fL (80-100); MEAN CORPUSCULAR HEMOGLOBIN 29.4 pg (25-34); MEAN CORPUSCULAR HGB CONC 31.9 g/dl (32-36); MEAN PLATELET VOLUME 9.6 fL (7.4-10.4); MONO % 13.2 %; MONO ABS # 0.62 K/uL (0.11-0.59); NEUT % 64.2 %; PLATELET COUNT 208 K/uL (130-400); RED CELL DISTRIBUTION WIDTH CV 14.3 % (11.5-14.5); RED CELL DISTRIBUTION WIDTH SD 48.5 fL (36.4-46.3); WHITE BLOOD COUNT 4.68 K/uL (4.8-10.8)
[2017-09-16 06:45] LABS: HEMOGLOBIN A1C 5.7 % (4.5-5.6)
[2017-09-16 06:56] LABS: PTT PATIENT 63.5 SECONDS (21.0-31.0)
[2017-09-16 07:19] LABS: CALCIUM 8.4 mg/dl (8.5-10.1); CREATININE 0.53 mg/dl (0.60-1.20)
--- NOTE | 2017-09-16 07:30 | NUR ---
A.ID: Assessment complete. See EMR for details. A & O x 4. Denies pain, SOB or CP at this time. NIHSS = 0. RA lungs are clear throughout. A. Fib on monitor with HR in 60s-80s. No edema. + PP. Abd soft, nt, nd. + BS. Voids to the toilet. Heparin infusing at 650units/13cc/hr with no s/s of complications - NSS infusing at 5cc/hr into same 20g in R fa to maintain KVO rate. Pt denies needs/questions at this time. Discharge plan to return home - no needs/services anticipated. Will monitor.
--- NOTE | 2017-09-16 07:32 | Clinical Documentation Query ---
CLINICAL DOCUMENTATION QUERY 82 year old female who presents to the Emergency Room with complaints of persistent left hand numbness which resolved. In your clinical opinion is this patient being managed for: ( + ) "Embolic TIA d/t cerebral embolism" in the setting of Afib and MTHFR treated with anticoagulation ( ) Not Agree ( ) Other explanation of clinical findings (Please Explain) ( ) Unable to determine (Please Define) ( ) Need to Discuss The medical record reflects the following clinical findings, treatment, and risk factors. Clinical Indicators: TIA, resolved left hand numbness Treatment: IV heparin gtt, ASA, Risk Factors: Age, Afib, MTHFR, Please clarify and document your clinical opinion in the progress notes and discharge summary. Terms such as "probable", "suspected", "likely", "questionable", "possible", or "still to be ruled out" are acceptable. IF IN AGREEMENT, YOU MUST DOCUMENT ABOVE DIAGNOSTIC STATEMENT IN DAILY PROGRESS NOTES AND DISCHARGE SUMMARY. This document is not part of the patient's record. An embolic TIA occurs when a blood clot or mass of blood cells forms somewhere in the body, breaks free then becomes lodged in one of the blood vessels in the brain. Risk factors for an embolic TIA are divided into 2 categories: high risk and low risk. *The high risk category includes the following conditions: afib, rheumatic disease of the mitral/aortic valves, sick sinus syndrome, sustained A flutter, recent MD, symptomatic CHF with an EF of <30%, dilated cardiomyopathy, infectious endocarditis, s/p CABG, undiagnosed patent foramen ovale in the adult. *The low risk category includes: a calcified mitral valve and left ventricular aneurysm. The symptoms associated with an embolic TIA may mimic those associated with an embolic stroke: numbness of the extremities or face, confusion, "dimming" of vision, speech difficulty, loss of coordination, sudden severe headache. These neurological deficits typically clear within 24 hours of their onset How is it treated? Anticoagulation Thank You, Gus Wilson, HEAVEN [phone]
[2017-09-16 07:35] VITALS: BP 137/71; PULSE 68; TEMP 37.1; O2SAT 97
[2017-09-16] MEDS: ATORVASTATIN 40 MG TAB PO SCH (07:45)
[2017-09-16] MEDS: BIMATOPROST 0.01% OP SOLN 2.5 ML BTL OP SCH ×2 (07:46→07:47)
[2017-09-16] MEDS ORDERED: NURSING VERBAL MED ORDER ONE (08:00)
--- NOTE | 2017-09-16 08:32 | ECHOCARDIOGRAM REPORT ---
*NOTICE TO RECEIVING CONSTITUTION PARTY AGENCY This information is strictly Confidential and protected under [place] law. [place] law prohibits you from making any further disclosure of this information unless further disclosure is expressly permitted by the written consent of the person to whom it pertains or is authorized by law. A general authorization for the release of medical or other information is not sufficient for this purpose. Hospital accepts no responsibility if the information is made available to any other person, INCLUDING THE PATIENT. Interpretation Summary * Name: JAISON FULLER Study Date: 09/16/2017 06:37 AM BP: 128/64 mmHg * Patient Location: [facility] - [place] HR: 66 * : 1935 (M/d/yyyy) Gender: Female Height: 60 in * Age: 82 yrs Ethnicity: CA Weight: 112 lb * Ordering Physician: Eneida Malcolm * Referring Physician: Self, Referred * Performed By: Yessi Swan RDCS * * Reason For Study: AFIB * BSA: 1.5 m2 * The study was technically adequate. * -- Conclusions -- * Sinus rhythm was present at the time of the study. * The left ventricular wall motion is normal. * The qualitative LV ejection fraction =55%. * The left atrium is mildly dilated. * Aortic valve sclerosis mild, without significant aortic valvular stenosis. * There is mild to moderate mitral regurgitation. * Doppler findings do not suggest pulmonary hypertension. * Diastolic dysfunction, Grade II (pseudonormalization pattern). Procedure Details * A complete two-dimensional transthoracic echocardiogram was performed (2D, M-mode, Doppler and color flow Doppler). Left Ventricle * The left ventricle is normal in size. * There is normal left ventricular wall thickness. * Left ventricular systolic function is normal. * The qualitative LV ejection fraction =55%. * The left ventricular wall motion is normal. Right Ventricle * The right ventricle is normal size. * The right ventricular systolic function is normal as assessed by tricuspid annular plane systolic excursion (TAPSE) (normal >1.5 cm). Atria * The left atrium is mildly dilated. * Right atrial size is normal. * There is no evidence of atrial septal defect, but resolution does not allow assessment for a patent foramen ovale. Mitral Valve * The mitral valve is normal. * There is no mitral valve stenosis. * There is mild to moderate mitral regurgitation. Tricuspid Valve * The tricuspid valve is normal. * There is no tricuspid stenosis. * Significant tricuspid regurgitation is absent. * Doppler findings do not suggest pulmonary hypertension. Aortic Valve * The aortic valve is trileaflet. * Aortic valve sclerosis mild, without significant aortic valvular stenosis. * Aortic stenosis is absent. * There is no significant aortic regurgitation. Pulmonic Valve * The pulmonary valve is not well seen, but the Doppler examination is normal without significant regurgitation or stenosis. Great Vessels * The aortic root and proximal ascending aorta are normal sized. Pericardium/Pleural * There is no pericardial effusion. Great Vessels * Normal inferior vena cava diameter and respiratory variation suggests normal central venous pressure. Left Ventricular Diastolic Function * Diastolic dysfunction, Grade II (pseudonormalization pattern). MMode 2D Measurements and Calculations IVSd 1.1 cm IVSs 1.5 cm LVIDd 5.0 cm LVIDs 3.7 cm LVPWd 1.1 cm LVPWs 1.6 cm IVS/LVPW 0.99 FS 25.5 % EDV(Teich) 119.4 ml ESV(Teich) 59.7 ml EF(Teich) 50.0 % EDV(cubed) 126.6 ml ESV(cubed) 52.3 ml EF(cubed) 58.7 % % IVS thick 40.6 % % LVPW thick 46.0 % LV mass(C)d 203.7 grams LV mass(C)dI 139.7 grams/m\S\2 LV mass(C)s 223.2 grams LV mass(C)sI 153.0 grams/m\S\2 SV(Teich) 59.8 ml SI(Teich) 41.0 ml/m\S\2 SV(cubed) 74.3 ml SI(cubed) 50.9 ml/m\S\2 Ao root diam 3.0 cm Ao root area 7.2 cm\S\2 LA dimension 3.8 cm LA/Ao 1.3 LVAd ap4 22.9 cm\S\2 LVLd ap4 6.4 cm EDV(MOD-sp4) 69.3 ml EDV(sp4-el) 69.9 ml LVAs ap4 14.4 cm\S\2 LVLs ap4 5.1 cm ESV(MOD-sp4) 36.9 ml ESV(sp4-el) 34.7 ml EF(MOD-sp4) 46.7 % EF(sp4-el) 50.3 % LVAd ap2 20.9 cm\S\2 LVLd ap2 6.4 cm EDV(MOD-sp2) 60.0 ml EDV(sp2-el) 58.4 ml LVAs ap2 13.8 cm\S\2 LVLs ap2 5.8 cm ESV(MOD-sp2) 32.6 ml ESV(sp2-el) 28.2 ml EF(MOD-sp2) 45.7 % EF(sp2-el) 51.7 % LVLd %diff -0.19 % EDV(MOD-bp) 65.2 ml LVLs %diff 12.0 % ESV(MOD-bp) 36.1 ml EF(MOD-bp) 44.6 % SV(MOD-sp4) 32.4 ml SI(MOD-sp4) 22.2 ml/m\S\2 SV(MOD-sp2) 27.4 ml SI(MOD-sp2) 18.8 ml/m\S\2 SV(MOD-bp) 29.1 ml SI(MOD-bp) 19.9 ml/m\S\2 SV(sp4-el) 35.1 ml SI(sp4-el) 24.1 ml/m\S\2 SV(sp2-el) 30.2 ml SI(sp2-el) 20.7 ml/m\S\2 Doppler Measurements and Calculations MV E max luis 70.9 cm/sec MV A max luis 46.3 cm/sec MV E/A 1.5 MV dec time 0.21 sec Ao V2 max 117.8 cm/sec Ao max PG 5.5 mmHg Ao max PG (full) 3.9 mmHg LV V1 max PG 1.6 mmHg LV V1 max 63.7 cm/sec
[2017-09-16] MEDS ORDERED: ASPIRIN 81 MG CHEW PO SCH (09:00)
[2017-09-16] MEDS ORDERED: CYANOCOBALAMIN 500 MCG TAB (VIT B-12) PO SCH (09:00)
[2017-09-16] MEDS ORDERED: CLOPIDOGREL BISULFATE 75 MG TAB PO SCH (09:00)
[2017-09-16] MEDS ORDERED: CHOLECALCIFEROL 1000 INTER.UNIT TAB PO SCH (09:00)
--- NOTE | 2017-09-16 09:50 | NUR ---
Pt off floor at this time for US.
--- NOTE | 2017-09-16 10:26 | Cardiology Consultation ---
Cardiology Consultation Date of Consultation: Sep 16, 2017 History of Present Illness Alexa Johnson is a 82 year old female seen in cardiology consultation per the request of Eneida Malcolm P.A.-C. for the evaluation of atrial fibrillation. The patient's primary care provider is Dr. Neo Plascencia. She does not follow with cardiology on a chronic basis. The patient presented to the ED yesterday with complaints of generalized weakness, and left hand numbness and clumsiness as per her description. Her symptoms have completely resolved. She states this is been her typical past symptom when she has had was felt to be TIA events in the past. She's been on aspirin and clopidogrel without interruption for years. History Past Medical History: 1. Recent admission in early August, for nausea, vomiting, abdominal pain, for which she received conservative therapy for a small bowel obstruction 2. Past history of stroke 3. History of past pulmonary embolism, with apparent MTHFR mutation, Coumadin been discontinued in May 2008 completed 6 months of therapy 4. History of breast carcinoma 5. Central retinal vein occlusion with resultant visual loss Past Surgical History: 1. Vaginal hysterectomy performed 2007 2. Cystoscopy Social History: , spouse in February after a long illness Family History: Father apparently at age 76 due to stroke Breast carcinoma in her sister Review Of Systems See above for pertinent positives & negatives. A total of 10 systems reviewed and were otherwise negative. Allergies Coded Allergies: Tetanus Toxoid (Verified Allergy, Mild, SWELLING AND REDNESS, 09/15/17) Medications Reported Home Medications Medications Dose Route/Sig Max Daily Dose Days Date Category Vitamin B-12 (Cyanocobalamin) 500 Mcg Tab 1 Tab PO DAILY 09/15/17 Reported Plavix (Clopidogrel Bisulfate) 75 Mg Tab 1 Tab PO DAILY 90 09/15/17 Reported Atorvastatin Calcium (Atorvastatin) 20 Mg Tab 20 Mg PO DAILY 08/18/17 Reported Folvite (Folic Acid) 1 Mg Tab 1 Mg PO DAILY 03/21/17 Reported Colace (Docusate Sodium) 100 Mg Cap 200 Mg PO BID 03/21/17 Reported Vitamin D (Cholecalciferol) 1,000 Unit Tab 1,000 Units PO DAILY 03/21/17 Reported Lumigan (Bimatoprost) 0.01 % Rubia 1 Drops OP BID 12/17/15 Reported Aspirin Chewable (Aspirin) 81 Mg Chew 81 Mg PO QAM 12/17/15 Reported Miralax (Polyethylene Glycol 3350) 1 Pow Pow 17 Gm PO DAILY 12/27/13 Reported Physical Exam Vital Signs (Last 8hrs): Last 8 Hrs Date Time Temp Pulse Resp B/P (MAP) Pulse Ox O2 Delivery O2 Flow Rate FiO2 09/16/17 07:35 37.1 68 20 137/71 (93) 97 Room Air 09/16/17 04:00 99 Room Air 09/16/17 03:47 36.6 66 18 128/64 (85) 99 Room Air General Appearance: Alert and Oriented x3. NAD. Head: Normocephalic Atraumatic. Eyes: PERRLA, EOMI, conjunctiva and sclera clear Neck: Supple. No carotid bruits noted. No JVD. No HJD. Respiratory: Breath sounds clear to auscultation bilaterally. No w/r/r. Cardiovascular: Reg rate and rhythm. S1 and S2 noted. No murmurs, rubs, gallops. PMI non displace. Abdomen: Normal bowel sounds, soft nontender. no abdominal bruits. Extremities: No edema, no clubbing or cyanosis. distal pulses 2/4 bilaterally. Neuro: No focal deficits. Psychiatric: Normal affect. Data Last 24 Hours Test 09/15/17 13:25 09/15/17 15:45 09/15/17 19:37 09/15/17 23:28 White Blood Count 8.06 K/uL Red Blood Count 4.25 M/uL Hemoglobin 12.6 g/dL Hematocrit 39.3 % Mean Corpuscular Volume 92.5 fL Mean Corpuscular Hemoglobin 29.6 pg Mean Corpuscular Hemoglobin Concent 32.1 g/dl Platelet Count 282 K/uL Mean Platelet Volume 9.7 fL Neutrophils (%) (Auto) 75.6 % Lymphocytes (%) (Auto) 11.8 % Monocytes (%) (Auto) 11.5 % Eosinophils (%) (Auto) 0.7 % Basophils (%) (Auto) 0.2 % Neutrophils # (Auto) 6.08 K/uL Lymphocytes # (Auto) 0.95 K/uL Monocytes # (Auto) 0.93 K/uL Eosinophils # (Auto) 0.06 K/uL Basophils # (Auto) 0.02 K/uL RDW Standard Deviation 48.1 fL RDW Coefficient of Variation 14.3 % Immature Granulocyte % (Auto) 0.2 % Immature Granulocyte # (Auto) 0.02 K/uL Prothrombin Time 10.9 SECONDS Prothromb Time International Ratio 1.0 Activated Partial Thromboplast Time 26.9 SECONDS 32.6 SECONDS Partial Thromboplastin Ratio 1.0 1.3 Sodium Level 137 mmol/L Potassium Level 3.1 mmol/L Chloride Level 104 mmol/L Carbon Dioxide Level 28 mmol/L Anion Gap 5.0 mmol/L Blood Urea Nitrogen 27 mg/dl Creatinine 0.83 mg/dl Estimated GFR () 75.1 Estimated GFR (Non- 64.8 BUN/Creatinine Ratio 32.0 Random Glucose 121 mg/dl Estimated Average Glucose 117 mg/dl Hemoglobin A1c 5.7 % Calcium Level 8.4 mg/dl Magnesium Level 1.9 mg/dl Total Bilirubin 0.4 mg/dl Direct Bilirubin 0.1 mg/dl Aspartate Amino Transf (AST/SGOT) 21 U/L Alanine Aminotransferase (ALT/SGPT) 25 U/L Alkaline Phosphatase 82 U/L Troponin I < 0.015 ng/ml < 0.015 ng/ml Total Protein 6.9 gm/dl Albumin 3.4 gm/dl Thyroid Stimulating Hormone (TSH) 2.240 uIu/ml Urine Color YELLOW Urine Appearance CLEAR Urine pH 5.0 Urine Specific [place] 1.019 Urine Protein NEG Urine Glucose (UA) NEG Urine Ketones NEG Urine Occult Blood TRACE Urine Nitrite NEG Urine Bilirubin NEG Urine Urobilinogen NEG Urine Leukocyte Esterase MODERATE Urine WBC (Auto) 5-10 /hpf Urine RBC (Auto) 0-4 /hpf Urine Hyaline Casts (Auto) 1-5 /lpf Urine Epithelial Cells (Auto) >30 /lpf Urine Bacteria (Auto) NEG Test 09/16/17 06:25 White Blood Count 4.68 K/uL Red Blood Count 3.60 M/uL Hemoglobin 10.6 g/dL Hematocrit 33.2 % Mean Corpuscular Volume 92.2 fL Mean Corpuscular Hemoglobin 29.4 pg Mean Corpuscular Hemoglobin Concent 31.9 g/dl Platelet Count 208 K/uL Mean Platelet Volume 9.6 fL Neutrophils (%) (Auto) 64.2 % Lymphocytes (%) (Auto) 19.9 % Monocytes (%) (Auto) 13.2 % Eosinophils (%) (Auto) 2.1 % Basophils (%) (Auto) 0.6 % Neutrophils # (Auto) 3.00 K/uL Lymphocytes # (Auto) 0.93 K/uL Monocytes # (Auto) 0.62 K/uL Eosinophils # (Auto) 0.10 K/uL Basophils # (Auto) 0.03 K/uL RDW Standard Deviation 48.5 fL RDW Coefficient of Variation 14.3 % Immature Granulocyte % (Auto) 0.0 % Immature Granulocyte # (Auto) 0.00 K/uL Activated Partial Thromboplast Time 63.5 SECONDS Partial Thromboplastin Ratio 2.4 Sodium Level 137 mmol/L Potassium Level 4.0 mmol/L Chloride Level 107 mmol/L Carbon Dioxide Level 25 mmol/L Anion Gap 5.0 mmol/L Blood Urea Nitrogen 20 mg/dl Creatinine 0.53 mg/dl Est Creatinine Clear Calc Drug Dose 56.8 ml/min Estimated GFR () 101.1 Estimated GFR (Non- 87.2 BUN/Creatinine Ratio 38.3 Random Glucose 92 mg/dl Calcium Level 8.4 mg/dl Magnesium Level 1.9 mg/dl Triglycerides Level 49 mg/dl Cholesterol Level 117 mg/dl HDL Cholesterol 82 mg/dl LDL Cholesterol, Calculated 25 mg/dl VLDL Cholesterol, Calculated 10 mg/dl Cholesterol/HDL Ratio 1.4 EKG performed 09/15/17 are reviewed and [place] the undersigned: Atrial fibrillation at 76 bpm, mild nonspecific ST abnormality. Compared to the prior study dated 08/18/17, atrial fibrillation and replaced sinus rhythm Repeat EKG performed this morning 09/16/17 are reviewed in apparently: Normal sinus rhythm at [address] changes. Transthoracic echocardiogram performed this morning 09/16/17 and reviewed independently: Sinus rhythm was present at the time of the echocardiogram study. Left ventricular wall motion is normal, the qualitative left jugular ejection fraction = 55%. Mild left atrial dilatation is noted. Mild aortic sclerosis without stenosis is present. There is mild to moderate mitral regurgitation. Doppler findings do not suggest pulmonary hypertension. Grade 2 diastolic dysfunction is noted. Carotid duplex reveals no hemodynamic significant stenosis within the carotid arteries, moderate plaque formation noted bilaterally MRI of the brain, 09/15/17 are no areas of restricted diffusion to suggest acute infarction. Moderate age-related atrophy and chronic small vessel change noted an altered compared to the prior study from April 2017 Assessment & Plan Impression: 82-year-old female 1. Newly diagnosed paroxysmal atrial fibrillation, controlled ventricular rate , with subsequent spontaneous conversion to sinus rhythm 2. Presented with transient neurologic symptoms of left-sided numbness and slurred speech, no stroke noted on MRI 3. Past history of multiple transient ischemic attacks for the patient is on dual antiplatelet therapy with aspirin and clopidogrel 4. History of right central retinal vein occlusion with resultant visual deficit 5. Recent admission earlier this month 08/19/17 until 08/25/17 for small bowel obstruction Recommendations: Patient had apparent coffee-ground emesis which she believes was prior to her nasogastric tube was placed when she was admitted for the bowel obstruction earlier this month, but has had no recurrence. Her hemoglobin is stable. Her calculated GFR baseline is over 60 mL per minute per meter squared. Her telemetry was reviewed. The patient presented in atrial fibrillation, converted to sinus rhythm she is still in the emergency room yesterday. Overnight last night, she has for the most part been in sinus rhythm, with intermittent episodes of rate controlled atrial fibrillation. Per review of her record, this is the first time that this is been captured. It is suspicious however at that perhaps her past transient neurologic events have been related to cardioembolic etiology in the setting of recent unrecognized paroxysmal atrial fibrillation. She has no subjective symptoms of irregular heartbeat. For the most part, her baseline heart rhythm has been relatively slow in the 60 beat per minute range. At this time I recommend cautiously adding metoprolol tartrate 12.5 mg twice a day. Future considerations include perhaps transitioning her to metoprolol succinate 25 mg daily if the shorter acting formulation as tolerated. In terms of stroke prophylaxis. On admission, heparin infusion was initiated and she remains on this. Her prior to hospital dose of aspirin and clopidogrel had been continued. Ideally, from a stroke prophylaxis standpoint, anticoagulation is indicated. Her [id number] score is is at leads 5 for risk factors of being female, ager over 75, and past TIAs predicting a high risk of cardioembolic stroke. We discussed going on Coumadin which she had been on for pulmonary embolism in the remote past. She however was concerned about the inconvenience of this in terms of frequent blood draws. [facility], and her out of pocket cost for [place] is $19.50 / month. Given her recent hospitalization for small bowel obstruction, incarcerated venous duplex has been requested because she has a risk for DVT or perhaps pulmonary embolism. After the results of that test are available, I will discuss anticoagulation strategies with her again, and perhaps transitioning her from a heparin infusion to Eliquis. Although her GFR is > 50 ml /m /m2, she is over 80 years old and her weight is less than 60 kg and therefore the appropriate dose for her repeat 2.5 mg by mouth twice a day.
--- NOTE | 2017-09-16 10:38 | DIAGNOSTIC IMAGING REPORT ---
BILATERAL LOWER EXTREMITY VENOUS DOPPLER HISTORY: New atrial fibrillation. Assess for DVT. COMPARISON STUDY: None. FINDINGS: There is normal compressibility, flow, and augmentation within the bilateral lower extremity deep venous systems. IMPRESSION: No DVT within the right or left lower extremity. Electronically signed by: Last Guerrero M.D. 09/16/2017 10:37 AM Dictated Date/Time: 09/16/2017 10:36 AM
[2017-09-16 10:50] VITALS: BP 111/68; PULSE 64; TEMP 36.8; O2SAT 98
[2017-09-16] MEDS ORDERED: METOPROLOL TARTRATE 25 MG TAB PO ONE (11:00)
--- NOTE | 2017-09-16 11:55 | Cardiology Progress Note ---
Cardiology Progress Note Date of Service Sep 16, 2017. Cardiology Progress Note LEV duplex was negative for DVT. Discussed medications with patient. Plan: DC ASA. DC Plavix. DC heparin infusion 09/16/17 at 1600, and give first dose of Eliquis at that time, 1600. Dose 2 of Eliquis in am of 09/17 and Q 12 hours thereafter. OK from my standpoint for discharge to home after Dose of Eliquis administered at 1600. Dose of Eliquis is 2.5 mg Q12 hours, dose adjusted for age and weight. ASA and Plavix to be stopped to minimize bleeding risk. Follow up with cardiology in 4-6 weeks.
--- NOTE | 2017-09-16 12:00 | NUR ---
Reassessment complete. See EMR for details. No change since previous assessment. VSS. Denies needs/questions at this time. Will monitor.
--- NOTE | 2017-09-16 12:37 | Progress Note ---
Internal Med Progress Note Date of Service: Sep 16, 2017. Provider Documentation: SUBJECTIVE: The patient was seen and examined Admitted with TIA symptoms likely secondary to Embolic phenomenon Has PAF Symptoms resolved OBJECTIVE: Vital Signs-as noted below Exam: General-NO distress at rest Eyes-normal ENT-normal Neck-Supple Lungs-Clear to ausucltate bilaterally Heart-Regular Abdomen-Benign,no masses,bowel sound present Extremities-NO edema Neuro-AAOx3 No focal neuro deficit Lab data as noted below. ASSESSMENT & PLAN: This is a 82yo F with a PMH of multiple TIAs, HLD, CRVO of R eye, MTHFR mutation and osteoporosis who presents with L sided numbness and slurred speech that begun earlier today and have since resolved. TIA: Likely Embolic TIA in setting of PAF treated with anticoagulation -L sided paresthesias, expressive aphasia now resolved -Cont aspirin, plavix, increased statin dose to 80mg daily -MRI brain , carotid Doppler, ECHO-unremarkable -Neuro consult -PT/OT/speech evaluation -ordered -Hemodynamically stable without any any issue with ambulation -Discharge home this afternoon on Eliquis 2.5 mg BID ,Stop Plavix and Aspirin New onset Atrial fibrillation: -Electrolytes, TSH wnl. No sign of infection -In setting of MTHFR mutation, h/o PEs, anticoagulation is indicated -Initiated IV heparin with bolus -Cardio consulted -appreciate Input -ECHO:: Sinsus rhythm was present at the time of the study. * The left ventricular wall motion is normal. * The qualitative LV ejection fraction =55%. * The left atrium is mildly dilated. * Aortic valve sclerosis mild, without significant aortic valvular stenosis. * There is mild to moderate mitral regurgitation. * Doppler findings do not suggest pulmonary hypertension. * Diastolic dysfunction, Grade II (pseudonormalization pattern). Small dose of BB started HLD: -Fasting lipid panel-noted -Cont statin Osteoporosis: -Cont Vit D Hypokalemia: replaced, recheck in am. Mg in am. Normalized DVT Ppx: IV heparin Code status: FULL Vital Signs: Date Time Temp Pulse Resp B/P (MAP) Pulse Ox O2 Delivery O2 Flow Rate FiO2 09/16/17 10:50 36.8 64 20 111/68 (82) 98 Room Air 09/16/17 08:00 Room Air 09/16/17 07:35 37.1 68 20 137/71 (93) 97 Room Air 09/16/17 04:00 99 Room Air 09/16/17 03:47 36.6 66 18 128/64 (85) 99 Room Air 09/15/17 23:59 95 Room Air 09/15/17 23:29 36.4 64 17 133/77 (95) 98 Room Air 09/15/17 20:00 36.7 73 20 117/68 (84) 98 Room Air 09/15/17 20:00 Room Air 09/15/17 19:34 36.7 73 20 117/68 (84) 98 Room Air 09/15/17 16:50 36.5 81 22 149/78 (101) 99 Room Air 09/15/17 16:50 99 Room Air 09/15/17 16:50 36.5 88 22 149/78 (101) 99 Room Air 09/15/17 16:25 75 20 138/81 97 Room Air 09/15/17 15:46 36.7 78 20 111/66 98 Room Air 09/15/17 15:35 78 20 111/66 97 Room Air 09/15/17 14:23 91 09/15/17 12:50 36.7 86 18 95/58 97 Lab Results: Results Past 24 Hours Test 09/15/17 13:25 09/15/17 15:45 09/15/17 19:37 09/15/17 23:28 Range/Units White Blood Count 8.06 4.8-10.8 K/uL Red Blood Count 4.25 4.2-5.4 M/uL Hemoglobin 12.6 12.0-16.0 g/dL Hematocrit 39.3 37-47 % Mean Corpuscular Volume 92.5 80-100 fL Mean Corpuscular Hemoglobin 29.6 25-34 pg Mean Corpuscular Hemoglobin Concent 32.1 32-36 g/dl Platelet Count 282 130-400 K/uL Mean Platelet Volume 9.7 7.4-10.4 fL Neutrophils (%) (Auto) 75.6 % Lymphocytes (%) (Auto) 11.8 % Monocytes (%) (Auto) 11.5 % Eosinophils (%) (Auto) 0.7 % Basophils (%) (Auto) 0.2 % Neutrophils # (Auto) 6.08 1.4-6.5 K/uL Lymphocytes # (Auto) 0.95 1.2-3.4 K/uL Monocytes # (Auto) 0.93 0.11-0.59 K/uL Eosinophils # (Auto) 0.06 0-0.5 K/uL Basophils # (Auto) 0.02 0-0.2 K/uL RDW Standard Deviation 48.1 36.4-46.3 fL RDW Coefficient of Variation 14.3 11.5-14.5 % Immature Granulocyte % (Auto) 0.2 % Immature Granulocyte # (Auto) 0.02 0.00-0.02 K/uL Prothrombin Time 10.9 9.0-12.0 SECONDS Prothromb Time International Ratio 1.0 0.9-1.1 Activated Partial Thromboplast Time 26.9 32.6 21.0-31.0 SECONDS Partial Thromboplastin Ratio 1.0 1.3 Sodium Level 137 136-145 mmol/L Potassium Level 3.1 3.5-5.1 mmol/L Chloride Level 104 98-107 mmol/L Carbon Dioxide Level 28 21-32 mmol/L Anion Gap 5.0 3-11 mmol/L Blood Urea Nitrogen 27 7-18 mg/dl Creatinine 0.83 0.60-1.20 mg/dl Estimated GFR () 75.1 Estimated GFR (Non- 64.8 BUN/Creatinine Ratio 32.0 10-20 Random Glucose 121 70-99 mg/dl Estimated Average Glucose 117 mg/dl Hemoglobin A1c 5.7 4.5-5.6 % Calcium Level 8.4 8.5-10.1 mg/dl Magnesium Level 1.9 1.8-2.4 mg/dl Total Bilirubin 0.4 0.2-1 mg/dl Direct Bilirubin 0.1 0-0.2 mg/dl Aspartate Amino Transf (AST/SGOT) 21 15-37 U/L Alanine Aminotransferase (ALT/SGPT) 25 12-78 U/L Alkaline Phosphatase 82 45-117 U/L Troponin I < 0.015 < 0.015 0-0.045 ng/ml Total Protein 6.9 6.4-8.2 gm/dl Albumin 3.4 3.4-5.0 gm/dl Thyroid Stimulating Hormone (TSH) 2.240 0.300-4.500 uIu/ml Urine Color YELLOW Urine Appearance CLEAR CLEAR Urine pH 5.0 4.5-7.5 Urine Specific [place] 1.019 1.000-1.030 Urine Protein NEG NEG Urine Glucose (UA) NEG NEG Urine Ketones NEG NEG Urine Occult Blood TRACE NEG Urine Nitrite NEG NEG Urine Bilirubin NEG NEG Urine Urobilinogen NEG NEG Urine Leukocyte Esterase MODERATE NEG Urine WBC (Auto) 5-10 0-5 /hpf Urine RBC (Auto) 0-4 0-4 /hpf Urine Hyaline Casts (Auto) 1-5 0-5 /lpf Urine Epithelial Cells (Auto) >30 0-5 /lpf Urine Bacteria (Auto) NEG NEG Test 09/16/17 06:25 Range/Units White Blood Count 4.68 4.8-10.8 K/uL Red Blood Count 3.60 4.2-5.4 M/uL Hemoglobin 10.6 12.0-16.0 g/dL Hematocrit 33.2 37-47 % Mean Corpuscular Volume 92.2 80-100 fL Mean Corpuscular Hemoglobin 29.4 25-34 pg Mean Corpuscular Hemoglobin Concent 31.9 32-36 g/dl Platelet Count 208 130-400 K/uL Mean Platelet Volume 9.6 7.4-10.4 fL Neutrophils (%) (Auto) 64.2 % Lymphocytes (%) (Auto) 19.9 % Monocytes (%) (Auto) 13.2 % Eosinophils (%) (Auto) 2.1 % Basophils (%) (Auto) 0.6 % Neutrophils # (Auto) 3.00 1.4-6.5 K/uL Lymphocytes # (Auto) 0.93 1.2-3.4 K/uL Monocytes # (Auto) 0.62 0.11-0.59 K/uL Eosinophils # (Auto) 0.10 0-0.5 K/uL Basophils # (Auto) 0.03 0-0.2 K/uL RDW Standard Deviation 48.5 36.4-46.3 fL RDW Coefficient of Variation 14.3 11.5-14.5 % Immature Granulocyte % (Auto) 0.0 % Immature Granulocyte # (Auto) 0.00 0.00-0.02 K/uL Activated Partial Thromboplast Time 63.5 21.0-31.0 SECONDS Partial Thromboplastin Ratio 2.4 Sodium Level 137 136-145 mmol/L Potassium Level 4.0 3.5-5.1 mmol/L Chloride Level 107 98-107 mmol/L Carbon Dioxide Level 25 21-32 mmol/L Anion Gap 5.0 3-11 mmol/L Blood Urea Nitrogen 20 7-18 mg/dl Creatinine 0.53 0.60-1.20 mg/dl Est Creatinine Clear Calc Drug Dose 56.8 ml/min Estimated GFR () 101.1 Estimated GFR (Non- 87.2 BUN/Creatinine Ratio 38.3 10-20 Random Glucose 92 70-99 mg/dl Calcium Level 8.4 8.5-10.1 mg/dl Magnesium Level 1.9 1.8-2.4 mg/dl Triglycerides Level 49 0-150 mg/dl Cholesterol Level 117 0-200 mg/dl HDL Cholesterol 82 mg/dl LDL Cholesterol, Calculated 25 mg/dl VLDL Cholesterol, Calculated 10 mg/dl Cholesterol/HDL Ratio 1.4
--- NOTE | 2017-09-16 14:22 | NUR ---
Case management note. Pt case find as 30 day readmission. Pt was here with a sbo and discharged home self care. Spoke with pt. Pt a&o. Pt lives alone. Pt lives in a 2 story house. Pt does not use any assistive devices. Pt is independent with adl's. Explained role of family caseworker. Pt plans to return home at discharge. Pt denies any discharge needs. Case management to follow with pt.
[2017-09-16] MEDS ORDERED: APIXABAN 2.5 MG TAB PO SCH (16:00)
[2017-09-16 16:14] VITALS: BP 144/79; PULSE 64; TEMP 36.8; O2SAT 100
[2017-09-16] MEDS ORDERED: ELQ25 PO ×2 (17:01)
[2017-09-16] MEDS ORDERED: LPR25 PO ×2 (17:01)
--- NOTE | 2017-09-16 17:04 | Discharge Instructions ---
Discharge Instructions Date of Service Sep 16, 2017. Admission Reason for Admission: TIA Discharge Discharge Diagnosis / Problem: TIA likely embolic ,PAF Discharge Goals Goal(s): Prevent Disease Progression Activity Recommendations Activity Limitations: resume your previous activity . Instructions / Follow-Up Instructions / Follow-Up Dr Campuzano on 09/21/17 at 12:45 PM (appointment with Dr Plascencia is cancelled due to earlier follow up) Dr Montesinos on 10/09/17 at 7:45 AM Current Hospital Diet Patient's current hospital diet: AHA Diet (Heart Healthy) Discharge Diet Recommended Diet: AHA Diet (Heart Healthy) Pending Studies Studies pending at discharge: no Laboratory Results Hemoglobin A1c Test 09/15/17 13:25 Range/Units Estimated Average Glucose 117 mg/dl Hemoglobin A1c 5.7 H 4.5-5.6 % Lipid Panel Test 09/16/17 06:25 Range/Units Triglycerides Level 49 0-150 mg/dl Cholesterol Level 117 0-200 mg/dl HDL Cholesterol 82 mg/dl Cholesterol/HDL Ratio 1.4 LDL Cholesterol, Calculated 25 mg/dl Medical Emergencies . Who to Call and When: Medical Emergencies: If at any time you feel your situation is an emergency, please call 911 immediately. . Non-Emergent Contact Non-Emergency issues call your: Primary Care Provider (Gt) . Past History Medical & Surgical History: (1) Atrial fibrillation (2) TIA (transient ischemic attack) (3) Hx of MTHFR mutation . "Provider Documentation" section prepared by Malka Aguilar. . VTE Core Measure Inpt VTE Proph given/why not?: Other Anticoagulation
[2017-09-16 17:56] VITALS: BP 144/79; PULSE 64; TEMP 36.8; O2SAT 100
--- NOTE | 2017-09-16 18:06 | CONSULTATION REPORT ---
DATE OF CONSULTATION: 09/16/2017 HISTORY OF PRESENT ILLNESS: Alexa is 82 years old former patient of Dr. Zara Acosta now sees Dr. Neo Plascencia at [facility] and I have seen her over the years for evaluations of recurrent episodes of hand numbness, articulatory disturbances in various degrees of left-sided weakness. In the past, she had a protracted episode which we thought was due to a completed stroke yet evaluation was completely normal in terms of revealing no evidence for an acute cerebrovascular event or carotid occlusion and we asked questions whether this might have been an atypical seizure with a protracted postictal state. The EEGs were negative. She has had some recurrent episodes, in fact has now had an ischemic event in the right eye due to possibly embolic event and she has been treated with aspirin and Plavix. She had been readmitted now with a sense of malaise, fatigue, lightheadedness and numbness in her left hand and body extending to involve her left arm and left side of her face and slurred speech and by the time she arrived in the ER, she was absolutely back to her baseline. I spoke with Dr. Story the ER attending and he felt that this was pretty much like her old events with one exception i.e., EKG on this occasion reveal atrial fibrillation and she has been brought in evaluated, seen by Dr. Montesinos and the decision is to now stop the aspirin and Plavix and place her on Eliquis and to not consider Coumadin. PAST MEDICAL HISTORY: Reveals a recent small-bowel obstruction resolving with NG tube and multiple bouts of diarrhea recently. 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 PAST SURGICAL HISTORY: She has had history of hysterectomy and small-bowel obstruction that did not require surgical intervention. FAMILY HISTORY: Reveals that her brother of a CVA. Her father had coronary disease. SOCIAL HISTORY: Reveals her to be a never smoker, not a consumer of ethanol. She currently lives alone with children lives close by. She is retired. She is recently . IMMUNIZATIONS: Up-to-date. There is no history of drug resistant organisms. ALLERGIES: SHE HAS ALLERGIES JUST TO TETANUS TOXOID. HOME MEDICATIONS: Include aspirin, atorvastatin, Lumigan, vitamin D, Plavix, vitamin B12, Colace, folic acid, polyethylene glycol. The aspirin and Plavix are going to be stopped in favor or Eliquis on discharge. REVIEW OF SYSTEMS: With the exception of the recent diarrhea and small-bowel obstruction, have been unremarkable. She has had no fever, sweats or chills, weight loss, weight gain, new issues referable to head, eyes, ears, nose and throat, cardiovascular, pulmonary, gastrointestinal, genitourinary systems other than the event which precipitated the admission and the recent small-bowel obstruction. PHYSICAL EXAMINATION: VITAL SIGNS: Blood pressure 149/78, pulse was 81, respirations were 22. GENERAL: She was a thin woman who had some slight hearing impairment but was in otherwise no apparent distress and had pretty clear speech and no focal neurologic findings. HEENT: Unremarkable. LUNGS: Clear. HEART: Had an irregularly irregular rhythm without murmur. ABDOMEN: Soft, nontender. EXTREMITIES: Free of edema, had no calf tenderness and good pulses. NEUROLOGIC: Today neurologically she is awake, alert. She is a little confused at times with going over medications. Maybe a right upper motor neuron facial asymmetry, which is old. There are no visual field cuts. Speech is clear. There is no aphasic tendencies or articulatory disturbance. There is no drift or pronation sign, tremor, tics, choreiform activity. Reflexes are 1+ symmetrical with the exception of ankle jerks which are a little hypoactive. Toes are downgoing. No Leesa's signs are seen. Muscle strength testing is normal and sensation is intact with the exception of some age-dependent vibratory loss over the lower extremities. MRI scan shows no acute events only some old ischemic changes consistent with her prior small vessel disease and her EKG did show atrial fibrillation. Dr. Montesinos has gone over her case and has elected to put her on Eliquis. At this time, I totally agree with this management. I think she could go home if she can comprehend the medications. Dr. Aguilar is going to go over this several times to be sure she is clear on this. She will have follow up with cardiology and her primary care physician and neurology can see her as needed. Luckily, this time the events were again transient and left no horton either clinically or on imaging studies. ELLA
--- NOTE | 2017-09-16 18:32 | NUR ---
discharge instructions reviewed with patient. verbalized understanding. prescription given to patient. IV site removed. volunteer to escort patient downstairs for her ride.
--- NOTE | 2017-09-16 20:42 | Pharmacy Progress Note ---
Pharmacist Stroke Counseling Date of Service Sep 16, 2017. Scope Pharmacy has been consulted to provide medication discharge counseling for this patient admitted with ischemic stroke/hemorrhagic stroke/ transient ischemic attack as per the Pharmacist Discharge Counseling for Stroke Patients Protocol. Medications on Discharge New Medications: Apixaban (Eliquis) 2.5 Mg Tab 2.5 MG PO Q12H for 30 Days, #60 TAB Prescription is called in by Dr Montesinos Metoprolol Tartrate (Lopressor) 25 Mg Tab 12.5 MG PO BID for 30 Days, #30 TAB Continued Medications: Atorvastatin (Atorvastatin Calcium) 20 Mg Tab 20 MG PO DAILY Bimatoprost (Lumigan) 0.01 % Rubia 1 DROPS OP BID, #2.5 ML 3 Refills Cholecalciferol (Vitamin D) 1,000 Unit Tab 1000 UNITS PO DAILY Cyanocobalamin (Vitamin B-12) 500 Mcg Tab 1 TAB PO DAILY Docusate Sodium (Colace) 100 Mg Cap 200 MG PO BID Folic Acid (Folvite) 1 Mg Tab 1 MG PO DAILY Polyethylene Glycol 3350 (Miralax) 1 Pow Pow 17 GM PO DAILY Discontinued Medications: Aspirin (Aspirin Chewable) 81 Mg Chew 81 MG PO QAM Clopidogrel Bisulfate (Plavix) 75 Mg Tab 1 TAB PO DAILY for 90 Days, #90 TAB 1 Refill Action The above medications, specifically ones for stroke treatment/prophylaxis, have been reviewed in detail with the patient and/or patient front office representative(s) prior to discharge. This includes indication, common adverse reactions, drug interactions, and medication administration. Medication counseling has been employed using the teach-back method to ensure understanding. Outcome The patient and/or patient front office representative(s) have demonstrated understanding of the medications. Please note, they are aware that the pharmacist will call them within 72 hours post-discharge to confirm that the appropriate medications are being taken and answer any further medication related questions the patient might have at that time. Contact information Individual to be contacted: Alexa Johnson (patient) Relationship to patient (if applicable): Self Phone number: [phone] Best time to call: Anytime Additional comments: - Met with patient at bedside prior to discharge. According to nursing, multiple providers as well as nursing staff talked with the patient to review her medications earlier throughout the day. However, her answers regarding what she knew about her new medications were vague. It appears she may have trouble with her memory, possibly difficulty retaining information. Frequently asked if the information would be provided to her in written form during counseling. Assured her that information discussed would be in her discharge packet as well as in pamphlets provided by her pharmacy when she picks up Rx's. At end of counseling, she was able to repeat back the major counseling points (i.e. dosing, major adverse effects to monitor) and expressed appreciation for counseling. She has had multiple TIA's in the past. Most recent event thought to be thromboembolic with finding of AF on EKG. - Reviewed indication, mechanism, and major adverse effects of Eliquis and metoprolol. She is aware of importance to cigar packer and picker Rx as soon as possible after discharge; she plans to go tonight. She will discard Plavix and aspirin, aware to D/C as she is now on Eliquis. Explained difference between Plavix/ASA and Eliquis. - Patient understands to monitor for s/sx bleeding, bruising. Advised fall precaution. Eliquis cost is OK per patient (she states she was told it would be ~$9/month). - She does not have a BP cuff. Advised her it would be a good idea to obtain one to monitor BP/HR. Cautioned on orthostasis and how to decr' risk. Advised to monitor for dizziness, call provider if any problems. - She does not have a tablet splitter. Advised her to purchase one at pharmacy since metoprolol dose is 12.5mg (1/2 tablet). - Patient has pill box at home, reports good adherence. Thank you for allowing pharmacy to be involved in the care of this patient. Please call [phone] or [phone] with any additional questions
[2017-09-16] MEDS ORDERED: BIMATOPROST 0.01% OP SOLN 2.5 ML BTL OP SCH (21:00)
[2017-09-16] MEDS ORDERED: METOPROLOL TARTRATE 25 MG TAB PO SCH (21:00)
--- NOTE | 2017-09-17 07:28 | Discharge Summary ---
Discharge Summary Date of Service Sep 17, 2017. Discharge Summary Admission Date: Sep 15, 2017 at 15:57 Discharge Date: Sep 16, 2017 Discharge Disposition: Home Principal Diagnosis: TIA likely embolic ,PAF Secondary Diagnoses/Problems: Please see H&P and Hospital progress note Consultations: Cardiology and Neurology Medication Reconciliation New Medications: Apixaban (Eliquis) 2.5 Mg Tab 2.5 MG PO Q12H for 30 Days, #60 TAB Prescription is called in by Dr Montesinos Metoprolol Tartrate (Lopressor) 25 Mg Tab 12.5 MG PO BID for 30 Days, #30 TAB Continued Medications: Atorvastatin (Atorvastatin Calcium) 20 Mg Tab 20 MG PO DAILY Bimatoprost (Lumigan) 0.01 % Rubia 1 DROPS OP BID, #2.5 ML 3 Refills Cholecalciferol (Vitamin D) 1,000 Unit Tab 1000 UNITS PO DAILY Cyanocobalamin (Vitamin B-12) 500 Mcg Tab 1 TAB PO DAILY Docusate Sodium (Colace) 100 Mg Cap 200 MG PO BID Folic Acid (Folvite) 1 Mg Tab 1 MG PO DAILY Polyethylene Glycol 3350 (Miralax) 1 Pow Pow 17 GM PO DAILY Discontinued Medications: Aspirin (Aspirin Chewable) 81 Mg Chew 81 MG PO QAM Clopidogrel Bisulfate (Plavix) 75 Mg Tab 1 TAB PO DAILY for 90 Days, #90 TAB 1 Refill Admission Information HPI (per Admitting provider): This is a 82yo F with a PMH of multiple TIAs, HLD, CRVO of R eye, MTHFR mutation and osteoporosis who presents with L sided numbness and slurred speech that begun earlier today and have since resolved. Patient woke up today feeling "funny", which she described as fatigued and lightheaded. A few hours ago, patient noticed numbness in her left hand that slowly expanded to include her L arm and L side of the face. Also noticed slurred speech. Called her daughter to bring her to ED for further evaluation. By the time patient was evaluated, symptoms had resolved completely. States that this episode is very similar in nature to previous TIAs. Per chart review, patient has been seen at [facility] for 3 TIAs since 2013.Is on dual antiplatelet therapy for h/o TIAs. Follows with Dr. Caro for neurology. Initial EKG in ER showed atrial fibrillation. Patient denies any history of A fib but endorses a bilateral PE in 2007, which prompted a hypercoagulability workup showing a MTHFR mutation. Patient is unsure if she has even been on coumadin. 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 Denies any facial droop, confusion, paresthesias, difficulty with gait. Endorses feeling generally weak today. Denies fever, chills, palpitations, CP, SOB, abdominal pain, dysuria. Of note, was most recently admitted to the [facility] surgical service from Aug.19- Aug.25 for an SBO that resolved with NG tube. Had multiple bouts of diarrhea this past Thursday after patient's colace dose was increased. Was instructed by her PCP to stop taking it. Has not had a bowel movement since Thursday. Past Medical/Surgical History Medical Problems: (1) Bilateral pulmonary embolism Status: Resolved (2) History of osteoporosis Status: Chronic (3) Hx of MTHFR mutation Status: Chronic (4) Intraductal carcinoma of breast Permanent Comment: s/p lumpectomy Status: Resolved (5) TIA (transient ischemic attack) Status: Chronic (6) Uterine prolapse Status: Chronic Surgical Problems: (1) History of hysterectomy Status: Resolved Family History CVA BROTHER FH: CAD (coronary artery disease) FATHER Social History Smoking Status: Never Smoker Alcohol Use: none Housing status: lives alone Occupational Status: retired Immunizations History of Influenza Vaccine: Yes History of Tetanus Vaccine?: Yes History of Pneumococcal: Yes Pneumococcal Date: Dec 11, 2007 History of Hepatitis B Vaccine: Unknown Multi-Drug Resistant Organisms History of MDRO: Yes Type of MDRO: VRE Allergies Coded Allergies: Tetanus Toxoid (Verified Allergy, Mild, SWELLING AND REDNESS, 09/15/17) Home Medications Scheduled Aspirin (Aspirin Chewable), 81 MG PO QAM Atorvastatin (Atorvastatin Calcium), 20 MG PO DAILY Bimatoprost (Lumigan), 1 DROPS OP BID Cholecalciferol (Vitamin D), 1,000 UNITS PO DAILY Clopidogrel Bisulfate (Plavix), 1 TAB PO DAILY Cyanocobalamin (Vitamin B-12), 1 TAB PO DAILY Docusate Sodium (Colace), 200 MG PO BID Folic Acid (Folvite), 1 MG PO DAILY Polyethylene Glycol 3350 (Miralax), 17 GM PO DAILY Review of Systems Ten systems reviewed and negative except as noted in the HPI. Physical Exam Vital Signs Date Time Temp Pulse Resp B/P (MAP) Pulse Ox O2 Delivery O2 Flow Rate FiO2 09/15/17 16:50 36.5 81 22 149/78 (101) 99 Room Air 09/15/17 16:50 99 Room Air 09/15/17 16:50 36.5 88 22 149/78 (101) 99 Room Air 09/15/17 16:25 75 20 138/81 97 Room Air 09/15/17 15:46 36.7 78 20 111/66 98 Room Air 09/15/17 15:35 78 20 111/66 97 Room Air 09/15/17 14:23 91 09/15/17 12:50 36.7 86 18 95/58 97 General Appearance: WD/WN, no apparent distress Head: normocephalic, atraumatic Eyes: normal inspection (Blind in R eye ), PERRL, EOMI, sclerae normal ENT: normal ENT inspection, hearing grossly normal, pharynx normal (moist mucous membranes ) Neck: supple, no adenopathy, thyroid normal Respiratory/Chest: chest non-tender, lungs clear, normal breath sounds, no respiratory distress, no accessory muscle use Cardiovascular: no murmur, normal peripheral pulses, + irregularly irregular Abdomen/GI: non tender, soft, no organomegaly Back: normal inspection Extremities/Musculoskelatal: normal inspection, no calf tenderness, no pedal edema, normal range of motion 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, no motor/sensory deficits, alert, normal mood/affect, oriented x 3, + pertinent finding (Did not ambulate 2/2 fall risk ) Skin: normal color, warm/dry, no rash Diagnostics Laboratory Results 09/15/17 13:25 Red Blood Count 4.25, Mean Corpuscular Volume 92.5, Mean Corpuscular Hemoglobin 29.6, Mean Corpuscular Hemoglobin Concent 32.1, Mean Platelet Volume 9.7, Neutrophils (%) (Auto) 75.6, Lymphocytes (%) (Auto) 11.8, Monocytes (%) (Auto) 11.5, Eosinophils (%) (Auto) 0.7, Basophils (%) (Auto) 0.2, Neutrophils # (Auto ) 6.08, Lymphocytes # (Auto) 0.95, Monocytes # (Auto) 0.93, Eosinophils # (Auto ) 0.06, Basophils # (Auto) 0.02 09/15/17 13:25 Test 09/15/17 13:25 09/15/17 15:45 09/15/17 19:37 White Blood Count 8.06 K/uL (4.8-10.8) Red Blood Count 4.25 M/uL (4.2-5.4) Hemoglobin 12.6 g/dL (12.0-16.0) Hematocrit 39.3 % (37-47) Mean Corpuscular Volume 92.5 fL (80-100) Mean Corpuscular Hemoglobin 29.6 pg (25-34) Mean Corpuscular Hemoglobin Concent 32.1 g/dl (32-36) Platelet Count 282 K/uL (130-400) Mean Platelet Volume 9.7 fL (7.4-10.4) Neutrophils (%) (Auto) 75.6 % Lymphocytes (%) (Auto) 11.8 % Monocytes (%) (Auto) 11.5 % Eosinophils (%) (Auto) 0.7 % Basophils (%) (Auto) 0.2 % Neutrophils # (Auto) 6.08 K/uL (1.4-6.5) Lymphocytes # (Auto) 0.95 K/uL (1.2-3.4) Monocytes # (Auto) 0.93 K/uL (0.11-0.59) Eosinophils # (Auto) 0.06 K/uL (0-0.5) Basophils # (Auto) 0.02 K/uL (0-0.2) RDW Standard Deviation 48.1 fL (36.4-46.3) RDW Coefficient of Variation 14.3 % (11.5-14.5) Immature Granulocyte % (Auto) 0.2 % Immature Granulocyte # (Auto) 0.02 K/uL (0.00-0.02) Prothrombin Time 10.9 SECONDS (9.0-12.0) Prothromb Time International Ratio 1.0 (0.9-1.1) Activated Partial Thromboplast Time 26.9 SECONDS (21.0-31.0) Partial Thromboplastin Ratio 1.0 Anion Gap 5.0 mmol/L (3-11) Estimated GFR () 75.1 Estimated GFR (Non- 64.8 BUN/Creatinine Ratio 32.0 (10-20) Calcium Level 8.4 mg/dl (8.5-10.1) Magnesium Level 1.9 mg/dl (1.8-2.4) Total Bilirubin 0.4 mg/dl (0.2-1) Direct Bilirubin 0.1 mg/dl (0-0.2) Aspartate Amino Transf (AST/SGOT) 21 U/L (15-37) Alanine Aminotransferase (ALT/SGPT) 25 U/L (12-78) Alkaline Phosphatase 82 U/L (45-117) Total Protein 6.9 gm/dl (6.4-8.2) Albumin 3.4 gm/dl (3.4-5.0) Thyroid Stimulating Hormone (TSH) 2.240 uIu/ml (0.300-4.500) Urine Color YELLOW Urine Appearance CLEAR (CLEAR) Urine pH 5.0 (4.5-7.5) Urine Specific [place] 1.019 (1.000-1.030) Urine Protein NEG (NEG) Urine Glucose (UA) NEG (NEG) Urine Ketones NEG (NEG) Urine Occult Blood TRACE (NEG) Urine Nitrite NEG (NEG) Urine Bilirubin NEG (NEG) Urine Urobilinogen NEG (NEG) Urine Leukocyte Esterase MODERATE (NEG) Urine WBC (Auto) 5-10 /hpf (0-5) Urine RBC (Auto) 0-4 /hpf (0-4) Urine Hyaline Casts (Auto) 1-5 /lpf (0-5) Urine Epithelial Cells (Auto) >30 /lpf (0-5) Urine Bacteria (Auto) NEG (NEG) Troponin I < 0.015 ng/ml (0-0.045) Results Past 24 Hours Test 09/15/17 13:25 09/15/17 15:45 09/15/17 16:45 Range/Units White Blood Count 8.06 4.8-10.8 K/uL Red Blood Count 4.25 4.2-5.4 M/uL Hemoglobin 12.6 12.0-16.0 g/dL Hematocrit 39.3 37-47 % Mean Corpuscular Volume 92.5 80-100 fL Mean Corpuscular Hemoglobin 29.6 25-34 pg Mean Corpuscular Hemoglobin Concent 32.1 32-36 g/dl Platelet Count 282 130-400 K/uL Mean Platelet Volume 9.7 7.4-10.4 fL Neutrophils (%) (Auto) 75.6 % Lymphocytes (%) (Auto) 11.8 % Monocytes (%) (Auto) 11.5 % Eosinophils (%) (Auto) 0.7 % Basophils (%) (Auto) 0.2 % Neutrophils # (Auto) 6.08 1.4-6.5 K/uL Lymphocytes # (Auto) 0.95 1.2-3.4 K/uL Monocytes # (Auto) 0.93 0.11-0.59 K/uL Eosinophils # (Auto) 0.06 0-0.5 K/uL Basophils # (Auto) 0.02 0-0.2 K/uL RDW Standard Deviation 48.1 36.4-46.3 fL RDW Coefficient of Variation 14.3 11.5-14.5 % Immature Granulocyte % (Auto) 0.2 % Immature Granulocyte # (Auto) 0.02 0.00-0.02 K/uL Prothrombin Time 10.9 9.0-12.0 SECONDS Prothromb Time International Ratio 1.0 0.9-1.1 Activated Partial Thromboplast Time 26.9 21.0-31.0 SECONDS Partial Thromboplastin Ratio 1.0 Sodium Level 137 136-145 mmol/L Potassium Level 3.1 3.5-5.1 mmol/L Chloride Level 104 98-107 mmol/L Carbon Dioxide Level 28 21-32 mmol/L Anion Gap 5.0 3-11 mmol/L Blood Urea Nitrogen 27 7-18 mg/dl Creatinine 0.83 0.60-1.20 mg/dl Estimated GFR () 75.1 Estimated GFR (Non- 64.8 BUN/Creatinine Ratio 32.0 10-20 Random Glucose 121 70-99 mg/dl Calcium Level 8.4 8.5-10.1 mg/dl Magnesium Level 1.9 1.8-2.4 mg/dl Total Bilirubin 0.4 0.2-1 mg/dl Direct Bilirubin 0.1 0-0.2 mg/dl Aspartate Amino Transf (AST/SGOT) 21 15-37 U/L Alanine Aminotransferase (ALT/SGPT) 25 12-78 U/L Alkaline Phosphatase 82 45-117 U/L Troponin I < 0.015 0-0.045 ng/ml Total Protein 6.9 6.4-8.2 gm/dl Albumin 3.4 3.4-5.0 gm/dl Thyroid Stimulating Hormone (TSH) 2.240 0.300-4.500 uIu/ml Urine Color YELLOW Urine Appearance CLEAR CLEAR Urine pH 5.0 4.5-7.5 Urine Specific [place] 1.019 1.000-1.030 Urine Protein NEG NEG Urine Glucose (UA) NEG NEG Urine Ketones NEG NEG Urine Occult Blood TRACE NEG Urine Nitrite NEG NEG Urine Bilirubin NEG NEG Urine Urobilinogen NEG NEG Urine Leukocyte Esterase MODERATE NEG Urine WBC (Auto) 5-10 0-5 /hpf Urine RBC (Auto) 0-4 0-4 /hpf Urine Hyaline Casts (Auto) 1-5 0-5 /lpf Urine Epithelial Cells (Auto) >30 0-5 /lpf Urine Bacteria (Auto) NEG NEG Diagnostic Radiology CT head: IMPRESSION: There is no hemorrhage, mass effect, or evidence of acute territorial ischemia by CT criteria. EKG Atrial fibrillation with PVCs at 76 bpm. Non-specific T wave abnormality. Impression Assessment and Plan This is a 82yo F with a PMH of multiple TIAs, HLD, CRVO of R eye, MTHFR mutation and osteoporosis who presents with L sided numbness and slurred speech that begun earlier today and have since resolved. TIA: -L sided paresthesias, expressive aphasia now resolved -Cont aspirin, plavix, increased statin dose to 80mg daily -MRI brain without, carotid dopplers, echo with bubble study -Neuro consult -PT/OT/speech eval -Discharge planning New onset Atrial fibrillation: -No documented history of A fib -Electrolytes, TSH wnl. No sign of infection -In setting of MTHFR mutation, h/o PEs, anticoagulation is indicated -Initiated IV heparin with bolus -Cardio consulted -Monitor on tele HLD: -Fasting lipid panel -Cont statin Osteoporosis: -Cont Vit D Hypokalemia: replaced, recheck in am. Mg in am. DVT Ppx: IV heparin Code status: FULL PCP: Temo Dispo: Discharge planning per stroke set protocol. Patient also >80 and lives alone. Patient seen in collaboration with Dr. Summers. Please see addendum. ADDENDUM: I have seen and examined the patient and agree with the assessment and plan as stated above. Per my exam there was no neurologic deficit. She had some difficulty standing but this was related to chronic back pain. Cont DAPT and heparin drip pending Cards eval/paola. DO Kristopher Level of Care Telemetry Advanced Directives Existing Living Will: No Existing Power of Stained Glass Artist: No Resuscitation Status FULL RESUSCITATION VTE Prophylaxis VTE Risk Assessment Done? Y/N: Yes Risk Level: Moderate Given or contraindicated: Other Anticoagulation Social Service Consult >80 yr.& Lives Alone <Electronically signed by Eneida Malcolm P.A.-C.> <Electronically signed by Loli Summers DO> Signed: 09/15/171856 Signed: 09/15/[id number] The status of this report is Signed * If report status is Draft, the document has not been finalized by the responsible provider. MNE: [facility] History and Physical Template <AttendingPhy>Malka Aguilar M.D.</AttendingPhy><EDPhy>Carlos Story M.D.</ EDPhy> <FamilyPhy>Neo Plascencia MD</FamilyPhy> <PrimaryPhy>Neo Plascencia MD</PrimaryPhy><UnitNumber>[id number]</UnitNumber><VisitNumber> [id number]</VisitNumber><PatientName>JAISON FULLER</PatientName><DateOfBirth >1935</DateOfBirth><Age>82</Age><Location>C.[facility]</Location><ServiceDate></ServiceDate><CC>Neo Plascencia MD Martin, Jill ., P.A.-C. Sumner, Sabrina M., DO</CC><MNE>ACUTEMED</MNE> Physical Exam (per Admitting): General Appearance: WD/WN, no apparent distress Head: normocephalic, atraumatic Eyes: normal inspection (Blind in R eye ), PERRL, EOMI, sclerae normal ENT: normal ENT inspection, hearing grossly normal, pharynx normal (moist mucous membranes ) Neck: supple, no adenopathy, thyroid normal Respiratory/Chest: chest non-tender, lungs clear, normal breath sounds, no respiratory distress, no accessory muscle use Cardiovascular: no murmur, normal peripheral pulses, + irregularly irregular Abdomen/GI: non tender, soft, no organomegaly Back: normal inspection Extremities/Musculoskelatal: normal inspection, no calf tenderness, no pedal edema, normal range of motion 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 TIA: Likely Embolic TIA in setting of PAF treated with anticoagulation -L sided paresthesias, expressive aphasia now resolved -Cont aspirin, plavix, increased statin dose to 80mg daily -MRI brain , carotid Doppler, ECHO-unremarkable -Neuro consult -PT/OT/speech evaluation -ordered -Hemodynamically stable without any any issue with ambulation -Discharge home this afternoon on Eliquis 2.5 mg BID ,Stop Plavix and Aspirin New onset Atrial fibrillation: -Electrolytes, TSH wnl. No sign of infection -In setting of MTHFR mutation, h/o PEs, anticoagulation is indicated -Initiated IV heparin with bolus -Cardio consulted -appreciate Input -ECHO:: Sinsus rhythm was present at the time of the study. * The left ventricular wall motion is normal. * The qualitative LV ejection fraction =55%. * The left atrium is mildly dilated. * Aortic valve sclerosis mild, without significant aortic valvular stenosis. * There is mild to moderate mitral regurgitation. * Doppler findings do not suggest pulmonary hypertension. * Diastolic dysfunction, Grade II (pseudonormalization pattern). Small dose of BB started HLD: -Fasting lipid panel-noted -Cont statin Osteoporosis: -Cont Vit D Hypokalemia: replaced, recheck in am. Mg in am. Normalized DVT Ppx: IV heparin Code status: FULL Total time spent on discharge = This includes examination of the patient, discharge planning, medication reconciliation, and communication with other providers. Discharge Instructions Date of Service Sep 16, 2017. Admission Reason for Admission: TIA Discharge Discharge Diagnosis / Problem: TIA likely embolic ,PAF Discharge Goals Goal(s): Prevent Disease Progression Activity Recommendations Activity Limitations: resume your previous activity . Instructions / Follow-Up Instructions / Follow-Up Dr Campuzano on 09/21/17 at 12:45 PM (appointment with Dr Plascencia is cancelled due to earlier follow up) Dr Montesinos on 10/09/17 at 7:45 AM Current Hospital Diet Patient's current hospital diet: AHA Diet (Heart Healthy) Discharge Diet Recommended Diet: AHA Diet (Heart Healthy) Pending Studies Studies pending at discharge: no Laboratory Results Hemoglobin A1c Test 09/15/17 13:25 Range/Units Estimated Average Glucose 117 mg/dl Hemoglobin A1c 5.7 H 4.5-5.6 % Lipid Panel Test 09/16/17 06:25 Range/Units Triglycerides Level 49 0-150 mg/dl Cholesterol Level 117 0-200 mg/dl HDL Cholesterol 82 mg/dl Cholesterol/HDL Ratio 1.4 LDL Cholesterol, Calculated 25 mg/dl Medical Emergencies . Who to Call and When: Medical Emergencies: If at any time you feel your situation is an emergency, please call 911 immediately. . Non-Emergent Contact Non-Emergency issues call your: Primary Care Provider (Gt) . Past History Medical & Surgical History: (1) Atrial fibrillation (2) TIA (transient ischemic attack) (3) Hx of MTHFR mutation . "Provider Documentation" section prepared by Malka Aguilar. . VTE Core Measure Inpt VTE Proph given/why not?: Other Anticoagulation Additional Copies To Neo Plascencia MD
[2017-09-17] MEDS ORDERED: APIXABAN 2.5 MG TAB PO SCH (08:00)
--- NOTE | 2017-09-17 08:19 | NUR ---
Case management note. Upon chart review found pt to be discharged. Case management was not notified of any discharge needs. Md ordered home self care.
[2017-09-17] MEDS ORDERED: ATORVASTATIN 20 MG TAB PO SCH (09:00)
--- NOTE | 2017-09-18 14:36 | Pharmacy Progress Note ---
Pharmacist Post D/C Phone Note Date of phone call: Sep 18, 2017. The patient and/or patient parts sales representative(s) were unable to be reached for a follow-up phone call within the 72 hour time frame. Could not leave a message as mailbox is not set up. Discharge counseling pharmacist contact information has already been provided to the patient should questions arise. Thank you for allowing us to be involved in the care of this patient.
[2017-10-09] MEDS ORDERED: NRN100 PO ×2 (13:19)
[2018-03-29] MEDS ORDERED: CYAN1CAP3 PO (12:07)
[2018-03-29] MEDS ORDERED: APIX1TAB PO (12:07)
[2018-04-29] MEDS ORDERED: GABA-112 PO (10:46)
[2018-04-30] MEDS ORDERED: NITR100C43 PO (09:19)
== END 2017-09-16 18:39 | disposition home or self-care (01) | DRG 69 ==
LOC: C.EDB 12:48 → C.2T 15:57 → ENRESERV 16:08
PROVIDERS: ADMIT Hospitalist; ATTEND Internal Medicine
DX: G45.8 Other transient cerebral ischemic attacks and related syndromes (principal); E72.12 Methylenetetrahydrofolate reductase deficiency; H34.8111 Central retinal vein occlusion, right eye, with retinal neovascularization; I48.0 Paroxysmal atrial fibrillation; E78.5 Hyperlipidemia, unspecified; M81.0 Age-related osteoporosis without current pathological fracture; E87.6 Hypokalemia; Z86.73 Personal history of transient ischemic attack (TIA), and cerebral infarction without residual deficits; Z86.711 Personal history of pulmonary embolism; Z87.19 Personal history of other diseases of the digestive system; Z86.19 Personal history of other infectious and parasitic diseases; Z85.3 Personal history of malignant neoplasm of breast; Z79.02 Long term (current) use of antithrombotics/antiplatelets; Z79.82 Long term (current) use of aspirin; Z79.899 Other long term (current) drug therapy; Z82.3 Family history of stroke; Z82.49 Family history of ischemic heart disease and other diseases of the circulatory system; Z80.3 Family history of malignant neoplasm of breast

== ENCOUNTER 2017-10-07 23:22 | Observation (INO) | payer BC ==
[~2017-10-07] VITALS: Ht 152.4 cm; Wt 45.5 kg
[~2017-10-07 23:22] MED LIST changes: +CLOP1TAB5 PO; +ELQ25 PO; +LPR25 PO; +VTMB12 PO
--- NOTE | 2017-10-07 23:37 | EMERGENCY ROOM VISIT NOTE ---
History Report prepared by Anastasia: Karl Crowley Under the Supervision of: Dr. Sandra Mercer D.O. First contact with patient: 23:30 Chief Complaint: SHOULDER PAIN Stated Complaint: FEELS FUNNY, LT SHOULDER SWELLING- HX TIA History of Present Illness The patient is an 82 year old female who presents to the Emergency Room with complaints of a resolved episode of left arm weakness that occurred 1.5 hours ago. The patient states she has a history of recurrent TIAs. She reports she was evaluated in the ED earlier this month and was diagnosed with A-fib. The patient notes she has had three episodes of left shoulder numbness and weakness since her discharge earlier this month. She states her last episode was 1.5 hours ago. The patient reports she had weakness in her left hand, would drop stuff, and becomes very tired. She notes her medication was changed from Plavix and a baby aspirin to Eliquis. The patient states she had two TIAs and was told to resume the baby aspirin in addition to the Eliquis. She reports she has not missed a dose of medication. The patient notes she is back to baseline. She denies slurred speech, trouble walking, chest pain, shortness of breath, and abdominal pain. The patient notes she typically does have chest pain during these episodes. EMR shows the patient had a CT and MRI that were negative for infarcts. It also notes the patient has vascular issues in her abdomen. Source of History: patient Onset: 1.5 hours ago Position: shoulder (left) Quality: other (weakness) Timing: resolved Associated Symptoms: No chest pain, No SOB, No abdominal pain Note: Associated symptoms: drop things, very tired Denies: slurred speech, trouble walking Review of Systems See HPI for pertinent positives & negatives. A total of 10 systems reviewed and were otherwise negative. Past Medical & Surgical Medical Problems: (1) History of breast cancer (2) History of osteoporosis (3) History of pulmonary embolism (4) Hx of MTHFR mutation (5) Small bowel obstruction (6) TIA (transient ischemic attack) (7) Uterine prolapse (8) Weakness of left upper extremity Surgical Problems: (1) Status post hysterectomy (2) Status post partial mastectomy Family History CVA BROTHER FH: CAD (coronary artery disease) FATHER Social History Smoking Status: Never Smoker Alcohol Use: none Housing Status: lives with family Occupation Status: retired Current/Historical Medications Scheduled Apixaban (Eliquis), 2.5 MG PO Q12H Aspirin (Aspirin Ec), 81 MG PO DAILY Atorvastatin (Atorvastatin Calcium), 20 MG PO DAILY Bimatoprost (Lumigan), 1 DROPS OP BID Cholecalciferol (Vitamin D), 1,000 UNITS PO DAILY Cyanocobalamin (Vitamin B-12), 1 TAB PO DAILY Docusate Sodium (Colace), 200 MG PO BID Folic Acid (Folvite), 1 MG PO DAILY Metoprolol Tartrate (Lopressor), 12.5 MG PO BID Polyethylene Glycol 3350 (Miralax), 17 GM PO DAILY Allergies Coded Allergies: Tetanus Toxoid (Verified Allergy, Mild, SWELLING AND REDNESS, 10/08/17) Physical Exam Vital Signs Date Time Temp Pulse Resp B/P (MAP) Pulse Ox O2 Delivery O2 Flow Rate FiO2 10/08/17 01:24 60 17 120/60 100 Room Air 10/07/17 23:26 36.5 62 16 150/83 98 Room Air Physical Exam HEENT: Head - normocephalic and atraumatic. Pupils are equal, round, and reactive to light. Extraocular eye muscles are intact and sclera are anicteric. Ears - bilaterally patent canals with noninjected tympanic membranes and no evidence of hemotympanum. Nose - moist nasal mucosa without discharge. Mouth - moist buccal mucosa. Oropharynx is nonerythematous and there is no tonsillar exudate or edema noted. Neck: Supple; no JVD, nuchal rigidity, cervical lymphadenopathy, or auscultated bruits. Heart: Regular rate and rhythm. There is a normal S1 and S2 with no murmurs, clicks, or gallops appreciated. Lungs: Clear to auscultation bilaterally with no wheezes, rales, or rhonchi. Abdomen: Soft, completely nontender, nondistended, with good bowel sounds. There are no palpable pulsatile masses or hepatosplenomegaly. There is no guarding, rigidity, or rebound noted. Extremities: No evidence of cyanosis, clubbing, or edema. There are easily palpable peripheral pulses. Neuro:The patient is awake and alert, oriented to day, time, and place. Muscle strength is 5/5 in all 4 extremities. The patient has equal clean room assembler strength and equal pedal push and pull. There are no cerebellar signs. Medical Decision & Procedures Laboratory Results 10/08/17 01:03 10/08/17 01:03 Test 10/08/17 01:03 Red Blood Count 3.86 M/uL (4.2-5.4) Mean Corpuscular Volume 93.8 fL (80-100) Mean Corpuscular Hemoglobin 30.3 pg (25-34) Mean Corpuscular Hemoglobin Concent 32.3 g/dl (32-36) RDW Standard Deviation 48.2 fL (36.4-46.3) RDW Coefficient of Variation 14.1 % (11.5-14.5) Mean Platelet Volume 9.6 fL (7.4-10.4) Anion Gap 5.0 mmol/L (3-11) Est Creatinine Clear Calc Drug Dose 40.6 ml/min Estimated GFR () 86.2 Estimated GFR (Non- 74.4 BUN/Creatinine Ratio 39.0 (10-20) Calcium Level 8.5 mg/dl (8.5-10.1) Total Creatine Kinase 122 U/L (26-192) Creatine Kinase MB 5.3 ng/ml (0.5-3.6) Creatine Kinase MB Ratio 4.3 (0-3.0) Thyroid Stimulating Hormone (TSH) 3.040 uIu/ml (0.300-4.500) Laboratory results per my review. ECG Indication: weakness Rate (beats per minute): 59 Rhythm: sinus bradycardia Findings: ST depression (minimal depression in the Inferior leads), no ectopy Comparison ECG Date: 09/16/17 Change: Minimal ST depression in the lateral leads are new. ED Course 2333: Past medical records reviewed. The patient was evaluated in room B12B by the medical student under my supervision. A complete history and physical exam was performed. 0021: The patient was evaluated in room B12B by me. A complete history and physical examination were performed. Nursing notes and previous electronic medical records were reviewed. IV lock was established and labs were drawn as above. A twelve-lead EKG was obtained as described above. 0116: I discussed the patient's case with Dr. Frost, [facility] Hospitalist. The patient will be evaluated for further management and care. 0143: Upon reevaluation, I discussed findings and results with resting. She verbalized agreement of the treatment plan. Medical Decision The patient is an 82 year old female who presents to the ED with left upper extremity weakness. Differential diagnosis includes recurrent TIA, embolic event , cardiac ischemia, cardiac dysrhythmia, seizure, anxiety. Labs results show: Hemoglobin of 11.7 which is baseline, normal WBC, negative troponin, normal TSH, BUN of 29, creatinine of 0.7, sodium of 135. This is an 82-year-old female patient with a history of multiple previous TIAs. She has been evaluated extensively in this hospital for recurrent TIA. 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 Since her discharge from the hospital earlier this month , the patient has had 3 specific episodes where the left upper extremity became weak/clumsy and she felt somewhat confused. Following these episodes, she does have extreme fatigue and sleepiness. The patient is followed primarily by Dr. Caro. The patient and her family are concerned about the recurrent episodes of left upper extremity weakness and possibility of having a complete stroke. Prior anticoagulation consisted of Plavix and aspirin. This was switched earlier this month. During this visit, an EKG was performed and revealed some very slight ST segment depression in the inferior leads in comparison to previous EKGs. The patient has no complaints of chest pain or shortness of breath and has negative cardiac enzymes. Medication Reconcilliation Current Medication List: was personally reviewed by me Blood Pressure Screening Patient's blood pressure: Normal blood pressure Blood pressure disposition: Did not require urgent referral Consults Time Called: 0114 Consulting Physician: [facility] Returned Call: 0116 I discussed the patient's case with [facility]. The patient will be evaluated for further management and care. Impression Primary Impression: TIA (transient ischemic attack) Additional Impression: Acute electrocardiogram changes Scribe Attestation The scribe's documentation has been prepared under my direction and personally reviewed by me in its entirety. I confirm that the note above accurately reflects all work, treatment, procedures, and medical decision making performed by me. Departure Information Dispostion Being Evaluated By Hospitalist Referrals Neo Plascencia MD (PCP) Patient Instructions My [facility] Problem Qualifiers Primary Impression: TIA (transient ischemic attack) Transient cerebral ischemia type: unspecified Qualified Codes: G45.9 - Transient cerebral ischemic attack, unspecified
[2017-10-08 01:12] LABS: HEMATOCRIT 36.2 % (37-47); HEMOGLOBIN 11.7 g/dL (12.0-16.0); MEAN CELL VOLUME 93.8 fL (80-100); MEAN CORPUSCULAR HEMOGLOBIN 30.3 pg (25-34); MEAN CORPUSCULAR HGB CONC 32.3 g/dl (32-36); MEAN PLATELET VOLUME 9.6 fL (7.4-10.4); PLATELET COUNT 214 K/uL (130-400); RED CELL DISTRIBUTION WIDTH CV 14.1 % (11.5-14.5); RED CELL DISTRIBUTION WIDTH SD 48.2 fL (36.4-46.3); WHITE BLOOD COUNT 5.99 K/uL (4.8-10.8)
[2017-10-08 01:33] LABS: BLOOD UREA NITROGEN 29 mg/dl (7-18); CALCIUM 8.5 mg/dl (8.5-10.1); CARBON DIOXIDE 27 mmol/L (21-32); CREATININE 0.74 mg/dl (0.60-1.20); GLUCOSE 92 mg/dl (70-99); POTASSIUM 3.7 mmol/L (3.5-5.1); SODIUM 135 mmol/L (136-145)
[2017-10-08 01:44] LABS: CKMB 5.3 ng/ml (0.5-3.6)
[2017-10-08] MEDS ORDERED: ASPI81TA28 PO ×2 (02:03)
--- NOTE | 2017-10-08 02:53 | History and Physical ---
History & Physical Date & Time of Service: Oct 08, 2017 at 02:53 . Chief Complaint: weakness, numbness left hand . Primary Care Physician: Neo Plascencia MD . History of Present Illness Source: patient, clinic records, hospital records 82 YO female followed by Dr. Plascencia for Internal Medicine. History of paroxysmal atrial fibrillation, TIA's, MTHFR mutation, and other problems as noted below. History of TIA's dating back to 2013. Treated with antiplatelet therapy until last month. Admitted on 09/15/17 with LUE weakness and dysarthria. MRI demonstrated small vessel ischemic changes, no apparent new event. Carotid duplex demonstrated bilateral plaque without significant stenosis. Echo did not demonstrate any mural thrombi. Noted to have PAF and started on apixaban. Since discharge on 09/17 she has had 2 recurrent episodes of LUE weakness, but did not seek medical attention. Today she experienced numbness and weakness of her left hand. Symptoms lasted for about 10 minutes and had resolved by the time she came to the ED. No headache. No acute visual changes. No dysarthria or aphasia. No lower extremity symptoms. Patient states that she is taking her meds as prescribed. . Past Medical/Surgical History Chronic and Resolved Medical Problems: (1) History of breast cancer Permanent Comment: intraductal carcinoma left breast, s/p lumpectomy Status: Chronic (2) History of osteoporosis Status: Chronic (3) History of pulmonary embolism Status: Chronic (4) Hx of MTHFR mutation Status: Chronic (5) Small bowel obstruction Status: Resolved (6) TIA (transient ischemic attack) Status: Chronic (7) Uterine prolapse Status: Chronic Surgical Problems: (1) Status post hysterectomy Status: Chronic (2) Status post partial mastectomy Permanent Comment: left breast, DCIS Status: Chronic . Family History FATHER CVA MOTHER CHF (congestive heart failure) SISTER Breast cancer Social History Smoking Status: Never Smoker Alcohol Use: none Housing status: lives alone Occupational Status: retired Immunizations History of Influenza Vaccine: Yes History of Tetanus Vaccine?: Yes History of Pneumococcal: Yes Pneumococcal Date: Dec 11, 2007 History of Hepatitis B Vaccine: Unknown Multi-Drug Resistant Organisms History of MDRO: Yes Type of MDRO: VRE Allergies Coded Allergies: Tetanus Toxoid (Verified Allergy, Mild, SWELLING AND REDNESS, 10/08/17) Home Medications Scheduled Apixaban (Eliquis), 2.5 MG PO Q12H Aspirin (Aspirin Ec), 81 MG PO DAILY Atorvastatin (Atorvastatin Calcium), 20 MG PO DAILY Bimatoprost (Lumigan), 1 DROPS OP BID Cholecalciferol (Vitamin D), 1,000 UNITS PO DAILY Cyanocobalamin (Vitamin B-12), 1 TAB PO DAILY Docusate Sodium (Colace), 200 MG PO BID Folic Acid (Folvite), 1 MG PO DAILY Metoprolol Tartrate (Lopressor), 12.5 MG PO BID Polyethylene Glycol 3350 (Miralax), 17 GM PO DAILY Review of Systems Constitutional: No fever, No weight loss Eyes: + problem reported (chronic vision loss right eye) ENT: No nasal symptoms, No sore throat Respiratory: No cough, No shortness of breath Cardiovascular: No chest pain, No palpitations Abdomen: No pain, No nausea, No vomiting, No diarrhea, No GI bleeding Musculoskeletal: No joint pain Genitourinary - Female: + vaginal bleeding (mild spotting), No dysuria, No hematuria Neurologic: + problem reported (as noted above in HPI) Endocrine: No excessive thirst, No excessive urination Hematologic / Lymphatic: No swollen lymph nodes Integumentary: No rash, No new/changing skin lesions Physical Exam Vital Signs Date Time Temp Pulse Resp B/P (MAP) Pulse Ox O2 Delivery O2 Flow Rate FiO2 10/08/17 01:24 60 17 120/60 100 Room Air 10/07/17 23:26 36.5 62 16 150/83 98 Room Air General Appearance: WD/WN, no apparent distress Head: normocephalic, atraumatic Eyes: normal inspection, PERRL, EOMI, sclerae normal, + pertinent finding ( conjunctivae clear) ENT: normal ENT inspection, hearing grossly normal Neck: supple, no adenopathy, thyroid normal, no carotid bruits, trachea midline Respiratory/Chest: lungs clear (A&P), no respiratory distress, no accessory muscle use Cardiovascular: no edema, no gallop, no JVD, no murmur, normal peripheral pulses, + irregularly irregular Abdomen/GI: normal bowel sounds, non tender, soft, no organomegaly Extremities/Musculoskelatal: normal inspection, no calf tenderness, normal capillary refill, no pedal edema Neurologic/Psych: private banker II-XII nml as tested (PERRL, EOMI, no facial palsy, no dysarthria, no aphasia), no motor/sensory deficits (motor strength upper and lower extremities 5/5 bilat), alert, normal mood/affect, oriented x 3, + pertinent finding (plantar reflexes equivocal bilaterally) Skin: normal color, warm/dry, no rash Lymphatic: no adenopathy (cervical) Diagnostics Laboratory Results Results Past 24 Hours Test 10/08/17 01:03 Range/Units White Blood Count 5.99 4.8-10.8 K/uL Red Blood Count 3.86 4.2-5.4 M/uL Hemoglobin 11.7 12.0-16.0 g/dL Hematocrit 36.2 37-47 % Mean Corpuscular Volume 93.8 80-100 fL Mean Corpuscular Hemoglobin 30.3 25-34 pg Mean Corpuscular Hemoglobin Concent 32.3 32-36 g/dl RDW Standard Deviation 48.2 36.4-46.3 fL RDW Coefficient of Variation 14.1 11.5-14.5 % Platelet Count 214 130-400 K/uL Mean Platelet Volume 9.6 7.4-10.4 fL Sodium Level 135 136-145 mmol/L Potassium Level 3.7 3.5-5.1 mmol/L Chloride Level 103 98-107 mmol/L Carbon Dioxide Level 27 21-32 mmol/L Anion Gap 5.0 3-11 mmol/L Blood Urea Nitrogen 29 7-18 mg/dl Creatinine 0.74 0.60-1.20 mg/dl Est Creatinine Clear Calc Drug Dose 40.6 ml/min Estimated GFR () 86.2 Estimated GFR (Non- 74.4 BUN/Creatinine Ratio 39.0 10-20 Random Glucose 92 70-99 mg/dl Calcium Level 8.5 8.5-10.1 mg/dl Total Creatine Kinase 122 26-192 U/L Creatine Kinase MB 5.3 0.5-3.6 ng/ml Creatine Kinase MB Ratio 4.3 0-3.0 Troponin I < 0.015 0-0.045 ng/ml Thyroid Stimulating Hormone (TSH) 3.040 0.300-4.500 uIu/ml EKG EKG performed at 23:53 reviewed and demonstrated SB at 59 / minute, [address] depression inferiorly and laterally. . Impression Assessment and Plan LUE WEAKNESS AND PARESTHESIAE History of prior TIA's; most recent hospitalization just a few weeks ago. Found to have PAF at that time. Known to have MTHFR mutation. Having recurrent LUE symptoms despite taking aspirin and apixaban, ? TIA's. Had MRI brain, carotid duplex, echo last visit. No need to repeat evaluation at this time unless recommended by Neuro. Continue aspirin, apixaban, statin. Consult Neuro. PAROXYSMAL ATRIAL FIBRILLATION Continue metoprolol and apixaban. Monitor on Telemetry Unit. EKG CHANGES EKG demonstrates mild ST depression in inferior and lateral leads. She has had similar changes in the past, although less pronounced on 09/16/17. No anginal symptoms. Check serial cardiac markers. Continue aspirin, metoprolol, statin. DYSLIPIDEMIA LDL-c 09/16/17 was 25. Continue atorvastatin.V VAGINAL BLEEDING Pt has noted a few episodes of mild vaginal spotting since starting apixaban. Outpatient gynecologic evaluation recommended. VTE PROPHYLAXIS Continue apixaban. RESUSCITATION STATUS Discussed with patient. She is uncertain whether or not she has a living will. She would like resuscitation attempted in the event of a cardiopulmonary arrest if there is a reasonable chance of a meaningful recovery, but does not want prolonged extraordinary measures if prognosis is poor. Therefore, code status = "Level 1" (full resuscitation). . VTE Prophylaxis Given or contraindicated: Other Anticoagulation (apixaban)
[2017-10-08] MEDS ORDERED: ACETAMINOPHEN 325 MG TAB PO PRN (03:00)
[2017-10-08 03:32] VITALS: BP 168/78; PULSE 60; TEMP 36.4; O2SAT 98; Ht 152.4 cm; Wt 45.5 kg
--- NOTE | 2017-10-08 03:34 | NUR ---
A/ID: PT ARRIVED TO UNIT AROUND THIS TIME VIA LITTER. PT AMBULATED INTO HOSPITAL BED WITH MINIMAL STAFF ASSIST. ASSESSMENT COMPLETED SEE DOCUMENTATION FOR DETAILS. GOWN CHANGED, MONITOR APPLIED, WEIGHT, AND VITAL SIGNS TAKEN. PT ORIENTED TO ROOM, CALL WOO, LIGHTS, BED CONTROLS, AND UNIT ACTIVITIES. CODE WORD AND FALL SHEET SIGNED. YELLOW SOCKS AND FALL BRACELET INTACT. NIH COMPLETED. CALL WOO WITHIN REACH. PENDING DISCHARGE.
[2017-10-08] MEDS ORDERED: PHARMACIST DISCHARGE MED REC CONSULT PRN (03:45)
[2017-10-08] MEDS ORDERED: IV FLUIDS COMPLETED PRN (04:15)
--- NOTE | 2017-10-08 08:00 | NUR ---
A/ID NOTE: PATIENT FULLY ASSESSED SEE EMR, VSS. PATIENT TOLERATING MEALS. NIH 0. PATIENT UP WITH SUPERVISION IN ROOM. CONSULTS OF NEURO, SPEECH, PT/OT. UNCERTAIN OF DISCHARGE DATE AT THIS TIME. WILL CONTINUE TO MONITOR.
[2017-10-08] MEDS: DOCUSATE SODIUM 100 MG CAP PO SCH ×2 (10:18→19:29)
[2017-10-08] MEDS: CYANOCOBALAMIN 500 MCG TAB (VIT B-12) PO SCH (10:19)
[2017-10-08] MEDS: METOPROLOL TARTRATE 25 MG TAB PO SCH ×2 (10:19→19:28)
[2017-10-08] MEDS: ATORVASTATIN 20 MG TAB PO SCH (10:19)
[2017-10-08] MEDS: ASPIRIN 81 MG ECTAB PO SCH (10:19)
[2017-10-08] MEDS: APIXABAN 2.5 MG TAB PO SCH ×2 (10:19→19:29)
[2017-10-08] MEDS: POLYETHYLENE (MIRALAX) 17 GM PACK PO SCH (10:19)
[2017-10-08] MEDS: CHOLECALCIFEROL 1000 INTER.UNIT TAB PO SCH (10:20)
--- NOTE | 2017-10-08 10:30 | NUR ---
Case management note. Social service consult for discharge planning. Spoke with pt. Pt is a 30 readmission. Pt discharged home self care. Pt lives in a 2 story house. Pt does not use any assistive devices. Pt is independent with adl's. Pts daughter drives pt to apts. Explained role of keycase assembler. Pt plans to return home at discharge. Pt denies any discharge needs. Pt does not want home health. Case management to follow with pt.
[2017-10-08 11:01] VITALS: BP 161/81; PULSE 60; TEMP 36.8; O2SAT 99
--- NOTE | 2017-10-08 11:42 | Progress Note ---
Internal Med Progress Note Date of Service: Oct 08, 2017. Provider Documentation: SUBJECTIVE: Seen and examined at bedside Doing well Left hand weakness resolved Denies chest pain, SOB, dizziness OBJECTIVE: Vital Signs-as noted below Physical Exam: General Appearance:Thin, no apparent distress Head: normocephalic, Atraumatic Eyes: normal inspection, EOMI, PERRL Neck: supple, Trachea midline Respiratory/Chest: Normal breath sounds, CTA Cardiovascular: S1, S2, No murmur Abdomen/GI:Soft, Non tender, Bowel sounds present Extremities/Musculoskelatal:normal inspection, no edema Neurologic/Psych:AAOX3, grossly no focal neurological deficits Skin: normal color, warm Lab data as noted below. ASSESSMENT & PLAN: Left Upper Extremity Weakness: Possible TIA Resolved H/O TIA's H/O MTHFR mutation. Previously had CVA work up including MRI brain, carotid duplex, ECHO Continue aspirin, apixaban, lipitor Await for Neurology Input PT/OT P.Afib Continue metoprolol, apixaban. EKG Changes EKG showed mild ST depression in inferior and lateral leads. Had similar changes previously Denies chest pain Troponin X 2: Negative Continue aspirin, metoprolol, statin. Dyslipidemia: Continue lipitor Vaginal Bleeding Patient noted few episodes of mild vaginal spotting since starting apixaban. OBGYN follow up as outpatient. Code Status: Full Code DVT Px: on apixaban Disposition: Expect to discharge home when stable Vital Signs: Date Time Temp Pulse Resp B/P (MAP) Pulse Ox O2 Delivery O2 Flow Rate FiO2 10/08/17 11:01 36.8 60 20 161/81 (107) 99 10/08/17 08:00 Room Air 10/08/17 03:34 Room Air 10/08/17 03:32 36.4 60 17 168/78 98 Room Air 10/08/17 03:01 62 20 136/85 100 Room Air 10/08/17 01:24 60 17 120/60 100 Room Air 10/07/17 23:26 36.5 62 16 150/83 98 Room Air Lab Results: Results Past 24 Hours Test 10/08/17 01:03 10/08/17 07:12 10/08/17 12:00 Range/Units White Blood Count 5.99 4.8-10.8 K/uL Red Blood Count 3.86 4.2-5.4 M/uL Hemoglobin 11.7 12.0-16.0 g/dL Hematocrit 36.2 37-47 % Mean Corpuscular Volume 93.8 80-100 fL Mean Corpuscular Hemoglobin 30.3 25-34 pg Mean Corpuscular Hemoglobin Concent 32.3 32-36 g/dl RDW Standard Deviation 48.2 36.4-46.3 fL RDW Coefficient of Variation 14.1 11.5-14.5 % Platelet Count 214 130-400 K/uL Mean Platelet Volume 9.6 7.4-10.4 fL Sodium Level 135 136-145 mmol/L Potassium Level 3.7 3.5-5.1 mmol/L Chloride Level 103 98-107 mmol/L Carbon Dioxide Level 27 21-32 mmol/L Anion Gap 5.0 3-11 mmol/L Blood Urea Nitrogen 29 7-18 mg/dl Creatinine 0.74 0.60-1.20 mg/dl Est Creatinine Clear Calc Drug Dose 40.6 ml/min Estimated GFR () 86.2 Estimated GFR (Non- 74.4 BUN/Creatinine Ratio 39.0 10-20 Random Glucose 92 70-99 mg/dl Calcium Level 8.5 8.5-10.1 mg/dl Total Creatine Kinase 122 26-192 U/L Creatine Kinase MB 5.3 0.5-3.6 ng/ml Creatine Kinase MB Ratio 4.3 0-3.0 Troponin I < 0.015 < 0.015 0-0.045 ng/ml Thyroid Stimulating Hormone (TSH) 3.040 0.300-4.500 uIu/ml
--- NOTE | 2017-10-08 12:00 | NUR ---
A NOTE: PATIENT OUT OF BED TO CHAIR. DAUGHTER WAS INTO VISIT FOR ABOUT AN HOUR THIS MORNING. NO NEW NEEDS ADDRESSED AT THIS TIME.
--- NOTE | 2017-10-08 16:00 | NUR ---
A NOTE: PATIENT UP WALKING IN HALLS AND TOLERATING WELL. PATIENT ANXIOUS TO LEAVE.
[2017-10-08 16:03] VITALS: BP 156/76; PULSE 60; TEMP 36.4; O2SAT 100
[2017-10-08] MEDS ORDERED: OPTIRAY 320 IV PRN (18:45)
[2017-10-08 19:15] VITALS: BP 112/71; PULSE 60; TEMP 36.7; O2SAT 96
--- NOTE | 2017-10-08 20:00 | NUR ---
A: Assessment completed see EMR. Pt is A&Ox4 and is OOb with and assist of one in the room. Pt admitted with bilateral UE weakness. Pt has no complaints at this time. Vitals WNL. No edema noted. Pt presents with sinus rhythm on the monitor.Pt is a high fall risk. Call quiñonez within reach, pt encouraged to ring and bed alarm in use. No discharge date at this time.
[2017-10-08] MEDS ORDERED: GABAPENTIN 100 MG CAP PO SCH (21:00)
--- NOTE | 2017-10-08 22:21 | DIAGNOSTIC IMAGING REPORT ---
NECK CTA HISTORY: recurrent L facial droop and L hand numb TECHNIQUE: Multiaxial CT images of the neck were performed following the intravenous administration of contrast to evaluate the major cervical vessels. Maximum intensity projection images were also obtained. All measurements were calculated based on NASCET criteria. A dose lowering technique was utilized adhering to the principles of ALARA. COMPARISON STUDY: Carotid Doppler study 09/07/2017. FINDINGS: The aortic arch and proximal great vessels are widely patent. There is no significant stenosis, occlusion, or dissection identified within the bilateral common carotid, internal carotid, or vertebral arteries. A 1.7 cm right thyroid nodule. No cervical lymphadenopathy. Bronchiectasis and scarlike densities within the lung apices. IMPRESSION: 1. No significant stenosis, occlusion, or dissection identified within the carotid or vertebral arteries. 2. A 1.7 cm right thyroid nodule. Electronically signed by: Last Guerrero M.D. 10/08/2017 10:19 PM Dictated Date/Time: 10/08/2017 10:14 PM
--- NOTE | 2017-10-08 22:25 | DIAGNOSTIC IMAGING REPORT ---
HEAD CTA HISTORY: Left facial droop and left hand numbness. TECHNIQUE: Multiaxial CT images of the head were performed both before and after the intravenous administration of contrast to evaluate the major cerebral vessels. Maximum intensity projection images were also obtained. A dose lowering technique was utilized adhering to the principles of ALARA. COMPARISON: Head CT 09/15/2017. FINDINGS: There is no mass, hematoma, midline shift, or acute infarct. Mild atrophy and microvascular ischemic changes remain unchanged. Visualized intracranial internal carotid arteries, distal vertebral arteries, and basilar artery are widely patent. There is no significant stenosis, occlusion, or aneurysm seen within the bilateral ACAs, MCAs, or formwork carpenter. IMPRESSION: No significant stenosis, occlusion, or aneurysm within the [place]. Electronically signed by: Last Guerrero M.D. 10/08/2017 10:24 PM Dictated Date/Time: 10/08/2017 10:20 PM
[2017-10-08 23:38] VITALS: BP 162/87; PULSE 60; TEMP 36.3; O2SAT 99
--- NOTE | 2017-10-09 02:01 | NEUROLOGY CONSULTATION ---
DATE OF CONSULTATION: 10/08/2017 PRIMARY CARE PHYSICIAN: Dr. Plascencia. REASON FOR CONSULTATION: Transient ischemic attack. HISTORY OF PRESENT ILLNESS: The patient is an 82-year-old female, patient of Dr. Caro, history of paroxysmal atrial fibrillation, TIA, MTHFR. The patient's TIAs date back to the , treated with antiplatelet therapy including Plavix and aspirin until about a month ago where she presented with stereotype symptoms and was found to have some atrial fibrillation. On that admission which I reviewed, Dr. Caro saw her, MRI showed no acute event, carotid duplex plaque without stenosis, echo did not show a mural thrombus. The patient was started on apixaban and aspirin discontinued. The patient, since discharge, had 2 of these typical episodes of left hand numbness as well as a droop of the left face and mild dysarthria lasting approximately 10 minutes, not accompanied by any headaches or scintillating visual phenomenon. When she contacted her primary care, aspirin was added to her regimen. She was readmitted for an identical episode. She was not reimaged. I reviewed Dr. Caro's note from last admission where he describes a longstanding history of fairly stereotype events with negative diagnostic testing including EEG. PAST MEDICAL HISTORY: As above including intraductal carcinoma left breast, status post lumpectomy, osteoporosis, pulmonary embolism, MTHFR, small-bowel obstruction, uterine prolapse, hysterectomy, partial mastectomy. She had a right retinal artery occlusion. FAMILY HISTORY: Stroke, congestive heart failure, breast cancer. A sister has migraine. SOCIAL HISTORY: Nonsmoker, nondrinker. She lives alone. ALLERGIES: TETANUS TOXOID. HOME MEDICINES: Eliquis, aspirin, atorvastatin, Lumigan, vitamin D, B12, Colace, folic acid, Lopressor and MiraLax. REVIEW OF SYSTEMS: No headache, jaw pain, jaw claudication. No sore throat. No cough or shortness of breath. She has had chest pain in the past but not on this admission. Mild vaginal bleeding since Eliquis. LABORATORY DATA: Mild anemia at 11.7/36.2. Chemistry profile, BUN and creatinine 29/0.74, sodium 135. CK 5.3, MB ratio 4.3. Troponin negative. Thyroid function negative. PHYSICAL EXAMINATION: 36.5, 62, 16, 150/83, 98%. Electrocardiogram, sinus bradycardia. The patient is awake and alert. No speech or language dysfunction is noted and there is no dysarthria. She repeats herself frequently but is oriented. There are no carotid bruits. No heart murmurs. Heart is regular rate and rhythm. No voodoo tenderness or sinus tenderness. Her neck is supple. Pupils are equal. I did not appreciate an afferent pupillary defect. Her saenz are intact in the right eye, intact in the left eye. Normal motility. Slight flattening of the right nasolabial fold as previously documented by Dr. Caro. Speech nondysarthric. Motor strength, no drift, normal rapid alternating movements. Symmetric reflexes. Downgoing toes. No asymmetric sensory loss. Ttyuzy-tw-hdxz and tdzc-ic-izwr are normal. Her gait is orthopedic. IMPRESSION: Recurrent facial droop and left hand numbness. 1. Recommend CTA head and neck, rule out proximal stenosis or previously missed intracranial stenosis. 2. I would check a sed rate. 3. I would cautiously try some gabapentin 100 which may prophylax for both acephalgic migrainous phenomena which would be unusual in this patient, although she does have a family history of migraine, as well as simple partial seizures. I have taken the liberty to order another EEG. We will follow with you. ELLA
[2017-10-09 03:42] VITALS: BP 157/73; PULSE 61; TEMP 36.4; O2SAT 98
--- NOTE | 2017-10-09 04:00 | NUR ---
A: Patient resting through the night. Voiced no complaints. Call quiñonez in reach.
[2017-10-09 07:24] VITALS: BP 168/87; PULSE 61; TEMP 36.5; O2SAT 100
[2017-10-09] MEDS: POLYETHYLENE (MIRALAX) 17 GM PACK PO SCH (07:55)
[2017-10-09] MEDS: METOPROLOL TARTRATE 25 MG TAB PO SCH (07:56)
[2017-10-09] MEDS: CHOLECALCIFEROL 1000 INTER.UNIT TAB PO SCH (07:56)
[2017-10-09] MEDS: APIXABAN 2.5 MG TAB PO SCH (07:56)
[2017-10-09] MEDS: ATORVASTATIN 20 MG TAB PO SCH (07:56)
[2017-10-09] MEDS: CYANOCOBALAMIN 500 MCG TAB (VIT B-12) PO SCH (07:56)
[2017-10-09] MEDS: DOCUSATE SODIUM 100 MG CAP PO SCH (07:57)
[2017-10-09] MEDS: ASPIRIN 81 MG ECTAB PO SCH (07:57)
--- NOTE | 2017-10-09 08:00 | NUR ---
A/ID NOTE: PATIENT FULLY ASSESSED SEE EMR, VSS. PATIENT TOLERATING MEALS. NIH 0. PATIENT UP WITH SUPERVISION IN ROOM. PATIENT TO HAVE EEG TODAY AND POSSIBLE DISCHARGE TO HOME LATER TODAY.
[2017-10-09 11:07] VITALS: BP 147/73; PULSE 57; TEMP 36.4; O2SAT 99
--- NOTE | 2017-10-09 12:00 | NUR ---
A NOTE: PATIENT RESTING IN BED. NO NEW NEEDS AT THIS TIME.
--- NOTE | 2017-10-09 12:18 | NUR ---
case management note. met with pt at bedside. pt was OOB ambulating independently in room. She states she is planning to return home at D/C and denies any D/C needs. PT/OT evals completed and agree with plan to return home. case management to follow.
--- NOTE | 2017-10-09 13:18 | Progress Note ---
Internal Med Progress Note Date of Service: Oct 09, 2017. Provider Documentation: SUBJECTIVE: Seen and examined at bedside Feels well No new complaints Left hand weakness resolved, no recurrence of symptoms Denies chest pain, SOB, dizziness OBJECTIVE: Vital Signs-as noted below Physical Exam: General Appearance:Thin, no apparent distress Head: normocephalic, Atraumatic Eyes: normal inspection, EOMI, PERRL Neck: supple, Trachea midline Respiratory/Chest: Normal breath sounds, CTA Cardiovascular: S1, S2, No murmur Abdomen/GI:Soft, Non tender, Bowel sounds present Extremities/Musculoskelatal:normal inspection, no edema Neurologic/Psych:AAOX3, grossly no focal neurological deficits Skin: normal color, warm Lab data as noted below. ASSESSMENT & PLAN: Left Upper Extremity Weakness: DD: Acephalgic migrainous phenomena Vs simple partial seizures. Recurrent symptoms since 3 years Resolved H/O TIA's H/O MTHFR mutation. Previously had CVA work up including MRI brain, carotid duplex, ECHO Continue aspirin, apixaban, lipitor Appreciate Neurology Input. Discussed with PT/OT Head and Neck CTA: no significant stenosis ESR: normal EEG: Normal Gabapentin per Neurology P.Afib Continue metoprolol, apixaban. EKG Changes EKG showed mild ST depression in inferior and lateral leads. Had similar changes previously Denies chest pain Troponin X 2: Negative Continue aspirin, metoprolol, statin. Dyslipidemia: Continue lipitor Vaginal Bleeding Patient noted few episodes of mild vaginal spotting since starting apixaban. OBGYN follow up as outpatient. Right thyroid nodule: Incidental finding on Ct scan TSH: normal Follow up as outpatient Code Status: Full Code DVT Px: on apixaban Disposition: Expect to discharge home when stable Follow up with for Primary Care on 10/15/17 at 12:45pm Follow up with your Neurologist on Nov 12, 2017 at 3:25pm Follow up with your OBGYN as outpatient regarding vaginal bleeding Get work up for 1.7 cm right thyroid nodule noted on Imaging Seek immediate medical attention if your symptoms reoccur or worsen Your NEW medication: Gabapentin 100mg daily at bedtime PROCEDURES: Head CTA: No significant stenosis, occlusion, or aneurysm within the [place] of Gar. Neck CTA: 1. No significant stenosis, occlusion, or dissection identified within the carotid or vertebral arteries. 2. A 1.7 cm right thyroid nodule. EEG: This EEG is essentially normal during wakefulness without evidence for focal or generalized encephalopathy and without evidence for potentially epileptogenic activity Vital Signs: Date Time Temp Pulse Resp B/P (MAP) Pulse Ox O2 Delivery O2 Flow Rate FiO2 10/09/17 13:38 36.4 57 16 99 Room Air 10/09/17 12:00 Room Air 10/09/17 11:07 36.4 57 16 147/73 (97) 99 Room Air 10/09/17 08:00 Room Air 10/09/17 07:24 36.5 61 16 168/87 (114) 100 Room Air 10/09/17 04:00 Room Air 10/09/17 03:42 36.4 61 16 157/73 (101) 98 Room Air 10/09/17 00:01 Room Air 10/08/17 23:38 36.3 60 18 162/87 (112) 99 Room Air 10/08/17 20:00 Room Air 10/08/17 19:15 36.7 60 16 112/71 (85) 96 Room Air Lab Results: Results Past 24 Hours Test 10/09/17 06:47 Range/Units Erythrocyte Sedimentation Rate 2 0-21 mm/hr
[2017-10-09] MEDS ORDERED: NRN100 PO ×2 (13:19)
--- NOTE | 2017-10-09 13:23 | Discharge Summary ---
Discharge Summary Date of Service Oct 09, 2017. Discharge Summary Admission Date: Oct 08, 2017 at 02:55 Discharge Date: Oct 09, 2017 Discharge Disposition: Home Principal Diagnosis: Left Upper Extremity Weakness, resolved Procedures: Head CTA: No significant stenosis, occlusion, or aneurysm within the [place] of Gar. Neck CTA: 1. No significant stenosis, occlusion, or dissection identified within the carotid or vertebral arteries. 2. A 1.7 cm right thyroid nodule. EEG: This EEG is essentially normal during wakefulness without evidence for focal or generalized encephalopathy and without evidence for potentially epileptogenic activity Consultations: Neurology Pending Studies/Follow-Up: Follow up with for Primary Care on 10/15/17 at 12:45pm Follow up with your Neurologist on Nov 12, 2017 at 3:25pm Follow up with your OBGYN as outpatient regarding vaginal bleeding Get work up for 1.7 cm right thyroid nodule noted on Imaging Seek immediate medical attention if your symptoms reoccur or worsen Medication Reconciliation New Medications: Gabapentin (Gabapentin) 100 Mg Cap 100 MG PO HS for 30 Days, #30 CAP 1 Refill Continued Medications: Apixaban (Eliquis) 2.5 Mg Tab 2.5 MG PO Q12H for 30 Days, #60 TAB Prescription is called in by Dr Montesinos Aspirin (Aspirin Ec) 81 Mg Tab 81 MG PO DAILY Atorvastatin (Atorvastatin Calcium) 20 Mg Tab 20 MG PO DAILY Bimatoprost (Lumigan) 0.01 % Rubia 1 DROPS OP BID, #2.5 ML 3 Refills Cholecalciferol (Vitamin D) 1,000 Unit Tab 1000 UNITS PO DAILY Cyanocobalamin (Vitamin B-12) 500 Mcg Tab 1 TAB PO DAILY Docusate Sodium (Colace) 100 Mg Cap 200 MG PO BID Folic Acid (Folvite) 1 Mg Tab 1 MG PO DAILY Metoprolol Tartrate (Lopressor) 25 Mg Tab 12.5 MG PO BID for 30 Days, #30 TAB Polyethylene Glycol 3350 (Miralax) 1 Pow Pow 17 GM PO DAILY Admission Information HPI (per Admitting provider): 82 YO female followed by Dr. Plascencia for Internal Medicine. History of paroxysmal atrial fibrillation, TIA's, MTHFR mutation, and other problems as noted below. History of TIA's dating back to 2013. Treated with antiplatelet therapy until last month. Admitted on 09/15/17 with LUE weakness and dysarthria. MRI demonstrated small vessel ischemic changes, no apparent new event. Carotid duplex demonstrated bilateral plaque without significant stenosis. Echo did not demonstrate any mural thrombi. Noted to have PAF and started on apixaban. Since discharge on 09/17 she has had 2 recurrent episodes of LUE weakness, but did not seek medical attention. Today she experienced numbness and weakness of her left hand. Symptoms lasted for about 10 minutes and had resolved by the time she came to the ED. No headache. No acute visual changes. No dysarthria or aphasia. No lower extremity symptoms. Patient states that she is taking her meds as prescribed. . Physical Exam (per Admitting): General Appearance: WD/WN, no apparent distress Head: normocephalic, atraumatic Eyes: normal inspection, PERRL, EOMI, sclerae normal, + pertinent finding ( conjunctivae clear) ENT: normal ENT inspection, hearing grossly normal Neck: supple, no adenopathy, thyroid normal, no carotid bruits, trachea midline Respiratory/Chest: lungs clear (A&P), no respiratory distress, no accessory muscle use Cardiovascular: no edema, no gallop, no JVD, no murmur, normal peripheral pulses, + irregularly irregular Abdomen/GI: normal bowel sounds, non tender, soft, no organomegaly Extremities/Musculoskelatal: normal inspection, no calf tenderness, normal capillary refill, no pedal edema Neurologic/Psych: seasoner II-XII nml as tested (PERRL, EOMI, no facial palsy, no dysarthria, no aphasia), no motor/sensory deficits (motor strength upper and lower extremities 5/5 bilat), alert, normal mood/affect, oriented x 3, + pertinent finding (plantar reflexes equivocal bilaterally) Skin: normal color, warm/dry, no rash Lymphatic: no adenopathy (cervical) Hospital Course Left Upper Extremity Weakness: DD: Acephalgic migrainous phenomena Vs simple partial seizures. Recurrent symptoms since 3 years Resolved H/O TIA's H/O MTHFR mutation. Previously had CVA work up including MRI brain, carotid duplex, ECHO Continue aspirin, apixaban, lipitor Appreciate Neurology Input. Discussed with PT/OT Head and Neck CTA: no significant stenosis ESR: normal EEG: Normal Gabapentin per Neurology P.Afib Continue metoprolol, apixaban. EKG Changes EKG showed mild ST depression in inferior and lateral leads. Had similar changes previously Denies chest pain Troponin X 2: Negative Continue aspirin, metoprolol, statin. Dyslipidemia: Continue lipitor Vaginal Bleeding Patient noted few episodes of mild vaginal spotting since starting apixaban. OBGYN follow up as outpatient. Right thyroid nodule: Incidental finding on Ct scan TSH: normal Follow up as outpatient Code Status: Full Code DVT Px: on apixaban Disposition: Expect to discharge home when stable Follow up with for Primary Care on 10/15/17 at 12:45pm Follow up with your Neurologist on Nov 12, 2017 at 3:25pm Follow up with your OBGYN as outpatient regarding vaginal bleeding Get work up for 1.7 cm right thyroid nodule noted on Imaging Seek immediate medical attention if your symptoms reoccur or worsen Your NEW medication: Gabapentin 100mg daily at bedtime PROCEDURES: Head CTA: No significant stenosis, occlusion, or aneurysm within the [place] of Gar. Neck CTA: 1. No significant stenosis, occlusion, or dissection identified within the carotid or vertebral arteries. 2. A 1.7 cm right thyroid nodule. EEG: This EEG is essentially normal during wakefulness without evidence for focal or generalized encephalopathy and without evidence for potentially epileptogenic activity Total time spent on discharge = This includes examination of the patient, discharge planning, medication reconciliation, and communication with other providers. Discharge Instructions Discharge Instructions Date of Service Oct 09, 2017. Admission Reason for Admission: Weakness Of Upper Extremity Discharge Discharge Diagnosis / Problem: Left Upper Extremity Weakness, resolved Discharge Goals Goal(s): Decrease discomfort, Improve function Activity Recommendations Activity Limitations: resume your previous activity Exercise/Sports Limitations: as tolerated . Instructions / Follow-Up Instructions / Follow-Up Follow up with for Primary Care on 10/15/17 at 12:45pm Follow up with your Neurologist on Nov 12, 2017 at 3:25pm Follow up with your OBGYN as outpatient regarding vaginal bleeding Get work up for 1.7 cm right thyroid nodule noted on Imaging Seek immediate medical attention if your symptoms reoccur or worsen Your NEW medication: Gabapentin 100mg daily at bedtime Current Hospital Diet Patient's current hospital diet: AHA Diet (Heart Healthy) Discharge Diet Recommended Diet: AHA Diet (Heart Healthy) Pending Studies Studies pending at discharge: yes List of pending studies: EEG Laboratory Results Hemoglobin A1c Test 09/15/17 13:25 Range/Units Estimated Average Glucose 117 mg/dl Hemoglobin A1c 5.7 H 4.5-5.6 % Lipid Panel Test 09/16/17 06:25 Range/Units Triglycerides Level 49 0-150 mg/dl Cholesterol Level 117 0-200 mg/dl HDL Cholesterol 82 mg/dl Cholesterol/HDL Ratio 1.4 LDL Cholesterol, Calculated 25 mg/dl Medical Emergencies . Who to Call and When: Medical Emergencies: If at any time you feel your situation is an emergency, please call 911 immediately. . Non-Emergent Contact Non-Emergency issues call your: Primary Care Provider, Neurologist Call Non-Emergent contact if: you have a fever, your pain is not controlled, your pain is worsening, your pain is unusual for you, your pain is concerning you Seek immediate medical attention if your symptoms reoccur or worsen . . "Provider Documentation" section prepared by Iain Dorsey. . VTE Core Measure Inpt VTE Proph given/why not?: Other Anticoagulation (apixaban) <Electronically signed by Iain Dorsey MD> Signed: 10/09/17 8420 Signed: The status of this report is Signed * If report status is Draft, the document has not been finalized by the responsible provider.
[2017-10-09 13:38] VITALS: BP 147/73; PULSE 57; TEMP 36.4; O2SAT 99
--- NOTE | 2017-10-09 14:10 | NUR ---
A/ID NOTE: PER MD ORDER PATIENT DISCHARGED TO HOME. DISCHARGE INSTRUCTIONS GIVEN TO PATIENT. FOOTWEAR [employer]ORY WORKER REMOVED. ALL BELONGINGS WITH PATIENT AT TIME OF DISCHARGE INCLUDING GLASSES.
--- NOTE | 2017-10-09 15:09 | ELECTROENCEPHALOGRAPH REPORT ---
CLINICAL DIAGNOSIS: Recurrent left facial droop and hand numbness without altered consciousness, question focal seizures. ELECTROENCEPHALOGRAM DIAGNOSIS: Essentially normal during wakefulness. DESCRIPTION OF TRACING: This EEG was done as a bedside recording and is of good technical quality. A simultaneous video analysis of patient movement and behavior was obtained. Photic stimulation was performed. Hyperventilation was not. Drowsiness and light sleep were not recorded. There are a few eye movement and head rolling artifacts occurring early in the tracing, but otherwise the recording is artifact free. Under these conditions there is evidence for normal appearing background rhythm in the alpha range of up to 10 Hz of maximum frequency and 30 microvolts of maximum amplitude. This is maximum posterior head regions bilaterally symmetrical. Polymorphic mid frequency theta activity is seen over all head regions without clear focal or regional predominance. Anterior head region maximum bilaterally symmetrical low voltage fast activity in the beta range is present. Photic stimulation provokes a modest driving response without a paroxysmal or photomyogenic component. At no time during the waking tracing is there evidence for potentially epileptogenic activity in the form of polyspike or spike wave bursts, focal sharp waves or focal spikes. INTERPRETATION: This EEG is essentially normal during wakefulness without evidence for focal or generalized encephalopathy and without evidence for potentially epileptogenic activity. MTDD
[2018-02-17] MEDS ORDERED: CEFU1TAB35 PO (16:51)
[2018-03-29] MEDS ORDERED: APIX1TAB PO (12:07)
[2018-03-29] MEDS ORDERED: CYAN1CAP3 PO (12:07)
[2018-04-29] MEDS ORDERED: GABA-112 PO (10:46)
[2018-04-30] MEDS ORDERED: NITR100C43 PO (09:19)
== END 2017-10-09 14:10 | disposition home or self-care (01) ==
LOC: C.EDB 23:25 → C.2T 10-08 02:55 → ENRESERV 10-08 03:08
PROVIDERS: ADMIT Hospitalist; ATTEND Internal Medicine
DX: R53.1 Weakness (principal); R20.0 Anesthesia of skin; I48.0 Paroxysmal atrial fibrillation; D68.52 Prothrombin gene mutation; E78.5 Hyperlipidemia, unspecified; M81.0 Age-related osteoporosis without current pathological fracture; Z90.710 Acquired absence of both cervix and uterus; Z90.12 Acquired absence of left breast and nipple; Z82.3 Family history of stroke; Z82.49 Family history of ischemic heart disease and other diseases of the circulatory system; Z86.73 Personal history of transient ischemic attack (TIA), and cerebral infarction without residual deficits; Z79.02 Long term (current) use of antithrombotics/antiplatelets; Z85.3 Personal history of malignant neoplasm of breast; Z79.82 Long term (current) use of aspirin; Z86.711 Personal history of pulmonary embolism; Z79.01 Long term (current) use of anticoagulants

== ENCOUNTER 2018-02-11 16:15 | Inpatient (IN) | payer BC, OTHER ==
[~2018-02-11] VITALS: Ht 154.9 cm; Wt 48.0 kg
[~2018-02-11 16:15] MED LIST changes: -ASPCH81X PO; +ASPI81TA28 PO; -CLOP1TAB15 PO; -CLOP1TAB5 PO; +NRN100 PO; -VTMB122500 PO
[2018-02-11] MEDS ORDERED: SODIUM CHLORIDE 0.9% 1000ML 1,000 ML IV SCH (16:30)
[2018-02-11 16:42] LABS: BASO % 0.5 %; BASO ABS # 0.03 K/uL (0-0.2); EOS % 0.8 %; EOS ABS # 0.05 K/uL (0-0.5); HEMATOCRIT 38.2 % (37-47); HEMOGLOBIN 12.5 g/dL (12.0-16.0); IG# 0.01 K/uL (0.00-0.02); LYMPH ABS # 1.12 K/uL (1.2-3.4); MEAN CELL VOLUME 91.6 fL (80-100); MEAN CORPUSCULAR HGB CONC 32.7 g/dl (32-36); MEAN PLATELET VOLUME 9.3 fL (7.4-10.4); MONO % 9.8 %; MONO ABS # 0.58 K/uL (0.11-0.59); NEUT % 69.7 %; NEUT ABS # 4.11 K/uL (1.4-6.5); PLATELET COUNT 217 K/uL (130-400); RED CELL DISTRIBUTION WIDTH CV 13.9 % (11.5-14.5); RED CELL DISTRIBUTION WIDTH SD 46.4 fL (36.4-46.3)
--- NOTE | 2018-02-11 16:48 | DIAGNOSTIC IMAGING REPORT ---
CT OF THE HEAD WITHOUT CONTRAST CLINICAL HISTORY: Stroke alert. Confusion. COMPARISON STUDY: Head CT October 08, 2017 and MRI of the brain September 15, 2017. CT DOSE: 1689.23 mGy.cm TECHNIQUE: Helical axial images of the head were obtained without IV contrast. Automated exposure control was utilized for the study. A dose lowering technique was utilized adhering to the principles of ALARA. FINDINGS: Exam is mildly compromised by motion artifact. No acute intracranial hemorrhage, midline shift or mass effect is present. Ventricular system is normal. The basilar cisterns are patent. There are no extra-axial collections. White matter hypodensities are unchanged and suggest small vessel disease. There are no findings to suggest acute dural sinus thrombosis or acute territorial infarct. There are no significant calvarial abnormalities. Visual portions of the sinuses and mastoid air cells are clear. IMPRESSION: No acute intracranial findings. No significant change since previous exam. Electronically signed by: Dallin Cardona M.D. 02/11/2018 4:47 PM Dictated Date/Time: 02/11/2018 4:43 PM
[2018-02-11 16:51] LABS: PTT PATIENT 24.7 SECONDS (21.0-31.0)
[2018-02-11 17:01] LABS: BLOOD UREA NITROGEN 27 mg/dl (7-18); CALCIUM 8.9 mg/dl (8.5-10.1); CARBON DIOXIDE 28 mmol/L (21-32); CREATININE 0.89 mg/dl (0.60-1.20); GLUCOSE 97 mg/dl (70-99); SODIUM 139 mmol/L (136-145)
--- NOTE | 2018-02-11 17:05 | DIAGNOSTIC IMAGING REPORT ---
CHEST ONE VIEW PORTABLE CLINICAL HISTORY: Stroke dyspnea COMPARISON STUDY: 08/18/2017 FINDINGS: Mild stable cardiomegaly. Chronic parenchymal fibrosis. No acute process. No acute infiltrate. IMPRESSION: Chronic change. No acute process. The above report was generated using voice recognition software. It may contain grammatical, syntax or spelling errors. Electronically signed by: Juan Skaggs M.D. 02/11/2018 5:04 PM Dictated Date/Time: 02/11/2018 5:04 PM
[2018-02-11 17:06] LABS: CKMB 4.9 ng/ml (0.5-3.6)
--- NOTE | 2018-02-11 17:18 | EMERGENCY ROOM VISIT NOTE ---
History Report prepared by Anastasia: Fidel Dobson Under the Supervision of: Dr. Lucius Pedroza M.D. First contact with patient: 16:22 Chief Complaint: STROKE SYMPTOMS Stated Complaint: CONFUSION, CAN'T WALK- HX STROKES History of Present Illness The patient is a 82 year old white female with a past medical history of multiple TIAs, PEs, breast CA, and hysterectomy who presents to the ED with a cc of constant altered mental status beginning at 1530. The patient is accompanied by her daughter who states that the patient was working in her yard this afternoon. She reports her and the patient were having a conversation around 1530 when the patient suddenly became unresponsive. Her daughter states the patient slouched, put her head down, closed her eyes, and would not talk. She states that her reported the patient became conscious again 10 minutes later. Her daughter reports the patient was complaining of left upper extremity heaviness and bilateral lower extremity weakness. She states the patient was able to talk and correctly reported her own name and birthday, but she reports the patient did not know who she was. She reports the patient has experienced something similar 5 years ago, but states her symptoms resolved in 24 hours and her confusion was not as severe as it is now. Negative seizure history, falls. The patient's HPI is limited secondary to the patient's AMS. Source of History: family (daughter) History Limited By: AMS Onset: 1530 Position: other (global) Quality: other (confused) Timing: constant Associated Symptoms: + weakness Note: Associated symptoms: left arm heaviness, unresponsive, unaware of who her daughter is Negative: falls Review of Systems The patient's ROS is limited secondary to the patient's AMS. Past Medical & Surgical Medical Problems: (1) Atrial fibrillation (2) History of breast cancer (3) History of osteoporosis (4) History of pulmonary embolism (5) Hx of MTHFR mutation (6) Small bowel obstruction (7) TIA (transient ischemic attack) (8) Uterine prolapse Surgical Problems: (1) H/O oophorectomy (2) History of bladder surgery (3) History of hysterectomy (4) Lysis of adhesions (5) Status post hysterectomy (6) Status post partial mastectomy Family History Breast cancer SISTER CHF (congestive heart failure) MOTHER CVA FATHER Social History Smoking Status: Former Smoker Alcohol Use: none Housing Status: lives with family Occupation Status: retired Current/Historical Medications Scheduled Apixaban (Eliquis), 2.5 MG PO Q12H Aspirin (Aspirin Ec), 81 MG PO DAILY Atorvastatin (Lipitor), 20 MG PO DAILY Cholecalciferol (Vitamin D), 1,000 UNITS PO DAILY Cyanocobalamin (Vitamin B-12), 1 TAB PO DAILY Docusate Sodium (Colace), 100 MG PO BID Folic Acid (Folvite), 1 MG PO DAILY Gabapentin (Gabapentin), 100 MG PO HS Lisinopril (Lisinopril), 10 MG PO DAILY Metoprolol Tartrate (Lopressor) (Lopressor), 12.5 MG PO BID Multiple Vitamins W/ Minerals (Centrum Silver 50+Women), 1 TAB PO DAILY Omeprazole (Prilosec), 20 MG PO DAILY Polyethylene Glycol 3350 (Miralax), 17 GM PO DAILY Senna/Docusate Sod (Senokot S), 1 TAB PO DAILY Allergies Coded Allergies: Tetanus Toxoid (Verified Allergy, Mild, SWELLING AND REDNESS, 10/08/17) Physical Exam Vital Signs Date Time Temp Pulse Resp B/P (MAP) Pulse Ox O2 Delivery O2 Flow Rate FiO2 02/11/18 17:33 64 18 170/85 99 Room Air 02/11/18 17:07 69 18 183/90 99 Room Air 02/11/18 17:02 64 02/11/18 16:30 Room Air 02/11/18 16:25 36.6 66 18 139/82 100 Room Air Physical Exam GENERAL: Awake, alert, well-appearing, NAD HENT: Normocephalic, atraumatic. EYES: Normal conjunctiva. Sclera non-icteric. Mild anisocoria, right greater than left. Blind in left eye. NECK: Supple. No nuchal rigidity. FROM. RESPIRATORY: CTAB, no rhonchi, wheezing, crackles CARDIAC: RRR, no MRG ABDOMEN: Soft, NTND, BS+ MSK: No chest wall TTP, no LE edema NEURO: GCS 15, CN 2-12 intact, moves all 4s on command, intermittently follows commands, 5/5 strength right side, 4/5 strength, left side, repetitive speech. SKIN: No rash or jaundice noted. Medical Decision & Procedures ER Provider Diagnostic Interpretation: Radiology results as stated below per my review and radiologist interpretation: CT OF THE HEAD WITHOUT CONTRAST CLINICAL HISTORY: Stroke alert. Confusion. COMPARISON STUDY: Head CT October 08, 2017 and MRI of the brain September 15, 2017. CT DOSE: 1689.23 mGy.cm TECHNIQUE: Helical axial images of the head were obtained without IV contrast. Automated exposure control was utilized for the study. A dose lowering technique was utilized adhering to the principles of ALARA. FINDINGS: Exam is mildly compromised by motion artifact. No acute intracranial hemorrhage, midline shift or mass effect is present. Ventricular system is normal. The basilar cisterns are patent. There are no extra-axial collections. White matter hypodensities are unchanged and suggest small vessel disease. There are no findings to suggest acute dural sinus thrombosis or acute territorial infarct. There are no significant calvarial abnormalities. Visual portions of the sinuses and mastoid air cells are clear. IMPRESSION: No acute intracranial findings. No significant change since previous exam. Electronically signed by: Dallin Cardona M.D. 02/11/2018 4:47 PM Dictated Date/Time: 02/11/2018 4:43 PM CHEST ONE VIEW PORTABLE CLINICAL HISTORY: Stroke dyspnea COMPARISON STUDY: 08/18/2017 FINDINGS: Mild stable cardiomegaly. Chronic parenchymal fibrosis. No acute process. No acute infiltrate. IMPRESSION: Chronic change. No acute process. The above report was generated using voice recognition software. It may contain grammatical, syntax or spelling errors. Electronically signed by: Juan Skaggs M.D. 02/11/2018 5:04 PM Dictated Date/Time: 02/11/2018 5:04 PM Laboratory Results 02/11/18 16:35 Red Blood Count 4.17, Mean Corpuscular Volume 91.6, Mean Corpuscular Hemoglobin 30.0, Mean Corpuscular Hemoglobin Concent 32.7, Mean Platelet Volume 9.3, Neutrophils (%) (Auto) 69.7, Lymphocytes (%) (Auto) 19.0, Monocytes (%) (Auto) 9.8, Eosinophils (%) (Auto) 0.8, Basophils (%) (Auto) 0.5, Neutrophils # (Auto) 4.11, Lymphocytes # (Auto) 1.12, Monocytes # (Auto) 0.58, Eosinophils # (Auto) 0.05, Basophils # (Auto) 0.03 02/11/18 16:35 Test 02/11/18 16:35 02/11/18 17:05 02/11/18 17:52 White Blood Count 5.90 K/uL (4.8-10.8) Red Blood Count 4.17 M/uL (4.2-5.4) Hemoglobin 12.5 g/dL (12.0-16.0) Hematocrit 38.2 % (37-47) Mean Corpuscular Volume 91.6 fL (80-100) Mean Corpuscular Hemoglobin 30.0 pg (25-34) Mean Corpuscular Hemoglobin Concent 32.7 g/dl (32-36) Platelet Count 217 K/uL (130-400) Mean Platelet Volume 9.3 fL (7.4-10.4) Neutrophils (%) (Auto) 69.7 % Lymphocytes (%) (Auto) 19.0 % Monocytes (%) (Auto) 9.8 % Eosinophils (%) (Auto) 0.8 % Basophils (%) (Auto) 0.5 % Neutrophils # (Auto) 4.11 K/uL (1.4-6.5) Lymphocytes # (Auto) 1.12 K/uL (1.2-3.4) Monocytes # (Auto) 0.58 K/uL (0.11-0.59) Eosinophils # (Auto) 0.05 K/uL (0-0.5) Basophils # (Auto) 0.03 K/uL (0-0.2) RDW Standard Deviation 46.4 fL (36.4-46.3) RDW Coefficient of Variation 13.9 % (11.5-14.5) Immature Granulocyte % (Auto) 0.2 % Immature Granulocyte # (Auto) 0.01 K/uL (0.00-0.02) Prothrombin Time 10.5 SECONDS (9.0-12.0) Prothromb Time International Ratio 1.0 (0.9-1.1) Activated Partial Thromboplast Time 24.7 SECONDS (21.0-31.0) Partial Thromboplastin Ratio 1.0 Venous Blood pH 7.40 (7.36-7.41) Venous Blood Partial Pressure CO2 47 mmHg (38.0-50.0) Venous Blood Partial Pressure O2 34 mmHg Venous Blood HCO3 28 mmol/L Venous Blood Oxygen Saturation 62.3 % Venous Blood Base Excess 2.6 mEq/L Anion Gap 6.0 mmol/L (3-11) Est Creatinine Clear Calc Drug Dose 33.8 ml/min Estimated GFR () 69.0 Estimated GFR (Non- 59.5 BUN/Creatinine Ratio 30.5 (10-20) Calcium Level 8.9 mg/dl (8.5-10.1) Magnesium Level 1.9 mg/dl (1.8-2.4) Total Creatine Kinase 102 U/L (26-192) Creatine Kinase MB 4.9 ng/ml (0.5-3.6) Creatine Kinase MB Ratio 4.8 (0-3.0) Troponin I < 0.015 ng/ml (0-0.045) Urine Color YELLOW Urine Appearance CLEAR (CLEAR) Urine pH 6.5 (4.5-7.5) Urine Specific [place] 1.022 (1.000-1.030) Urine Protein NEG (NEG) Urine Glucose (UA) NEG (NEG) Urine Ketones TRACE (NEG) Urine Occult Blood 1+ (NEG) Urine Nitrite POS (NEG) Urine Bilirubin NEG (NEG) Urine Urobilinogen NEG (NEG) Urine Leukocyte Esterase TRACE (NEG) Urine WBC (Auto) 1-5 /hpf (0-5) Urine RBC (Auto) 0-4 /hpf (0-4) Urine Hyaline Casts (Auto) 5-10 /lpf (0-5) Urine Epithelial Cells (Auto) 10-20 /lpf (0-5) Urine Bacteria (Auto) 4+ (NEG) Bedside Lactic Acid Venous 1.77 mmol/L (0.90-1.70) Laboratory results reviewed by me Medications Administered Medications (Trade) Dose Ordered Sig/Brandy Route Start Time Stop Time Status Last Admin Dose Admin Sodium Chloride 1,000 ml @ 50 mls/hr Q20H IV 02/11/18 16:30 02/11/18 19:38 DC 02/11/18 17:00 50 MLS/HR Sodium Chloride 1,000 ml @ 500 mls/hr Q2H STAT IV 02/11/18 17:34 02/11/18 19:33 DC 02/11/18 17:55 500 MLS/HR Ceftriaxone Sodium (Rocephin Inj) 1 gm NOW STAT IV 02/11/18 17:49 02/11/18 17:50 DC 02/11/18 17:58 1 GM Sodium Chloride 1,000 ml @ 80 mls/hr [id number] IV 02/11/18 18:31 03/13/18 18:30 02/11/18 19:11 80 MLS/HR ECG Per My Interpretation Indication: altered mental status Rate (beats per minute): 67 Rhythm: normal sinus Findings: other (Normal axis and intervals, No STS changes or TWI) ED Course 1623: The patient was evaluated in room A01. A complete history and physical exam was performed. 1651: I discussed the patient's case with Dr. David, [facility]. He reports he would like to talk to the patient. 1735: I reevaluated the patient and she is resting comfortably. 1741: I discussed the patient's case with Dr. David, [facility]. He reports the patient is no eligible for TPA. 1801: I discussed the patient's case with Hilaria Resendiz Hospitalist. She understands the patient's condition and agrees to accept the patient. The patient will be further evaluated. Medical Decision Nursing notes reviewed. Ancillary studies and prior records reviewed. The patient is a 82 year old white female with a past medical history of multiple TIAs, PEs, breast CA, and hysterectomy who presents to the ED with a cc of constant altered mental status beginning at 1530. The patient's presentation and history were concerning for etiologies such as metabolic, infection, hypo/hyperglycemia, electrolyte abnormalities, cardiac sources, intracerebral event, toxicologic, neurologic, as well as others were entertained. Patient was seen and evaluated the bedside. There was a concern for possible stroke. The patient did have acute onset of altered mental status around 330 which is 1 an hour prior to arrival. The patient had complained of some left upper extremity heaviness. Patient was very confused when intermittently follow commands. Patient had good strength in the right side but some decreased strength on her left. A code stroke was called and she was evaluated by the telemetry stroke neurologist after I had spoken with them. Patient had a negative CT brain. Patient had an elevated BUN/creatinine ratio likely consistent with dehydration. Patient was given additional fluids. The patient also had a UTI. The patient was given Rocephin. The patient did have improvement of her symptoms. There was concern that the patient had reverted and had a recurrence in her confusion. This seems acute in onset. This may be related to delirium. I did speak with the on-call hospitalist who agreed to further evaluate and treat the patient. Patient was given a small dose of IV Ativan. Medication Reconcilliation Current Medication List: was personally reviewed by me Blood Pressure Screening Patient's blood pressure: Elevated blood pressure Referred to Hospitalist Consults Time Called: 1647 Consulting Physician: Dr. David, [facility] Returned Call: [phone], [phone] I discussed the patient's case with Dr. David, [facility]. He reports he would like to talk to the patient. I discussed the patient's case with Dr. David, [facility]. He reports the patient is no eligible for TPA. Additional Consults: Time Called: 1800 Consulted Physician: Hilaria Resendiz Hospitalist Returned Call: [phone] Additional Comments: I discussed the patient's case with Hilaria Resendiz. She understands the patient's condition and agrees to accept the patient. The patient will be further evaluated. Impression Primary Impression: UTI (urinary tract infection) Additional Impressions: Dehydration Delirium Scribe Attestation The scribe's documentation has been prepared under my direction and personally reviewed by me in its entirety. I confirm that the note above accurately reflects all work, treatment, procedures, and medical decision making performed by me. Departure Information Dispostion Being Evaluated By Hospitalist Prescriptions Apixaban (ELIQUIS) 2.5 Mg Tab 2.5 MG PO Q12H for 30 Days, #60 TAB Prov: Kamila Julien CRNP 02/11/18 Referrals Neo Plascencia MD (PCP) Patient Instructions My [facility] Stroke History Time Last Known Well 1530 Stroke t-PA Criteria Reviewed Does NOT meet criteria for t-PA Reason t-PA Not Given Treatment not indicated Problem Qualifiers Primary Impression: UTI (urinary tract infection) Urinary tract infection type: acute cystitis Hematuria presence: without hematuria Qualified Codes: N30.00 - Acute cystitis without hematuria
[2018-02-11] MEDS ORDERED: SODIUM CHLORIDE 0.9% 1000ML 1,000 ML IV STA (17:34)
[2018-02-11] MEDS ORDERED: CEFTRIAXONE SOD INJ 1 GM ADDVIAL IV STA (17:49)
[2018-02-11] MEDS ORDERED: ATOR-22 PO (18:22)
[2018-02-11] MEDS ORDERED: OMEP20CA9 PO (18:22)
[2018-02-11] MEDS ORDERED: LISI-461 PO (18:22)
[2018-02-11] MEDS ORDERED: ACETAMINOPHEN 325 MG TAB PO PRN (18:45)
[2018-02-11] MEDS ORDERED: ONDANSETRON INJ 2 MG/ML 2 ML VIAL IV PRN (18:45)
[2018-02-11] MEDS ORDERED: PHARMACIST DISCHARGE MED REC CONSULT PRN (18:45)
[2018-02-11] MEDS ORDERED: LORAZEPAM 2 MG/ML 1 ML VIAL IV STA (18:54)
[2018-02-11] MEDS ORDERED: SENN-65 PO (19:08)
[2018-02-11] MEDS ORDERED: ELQ25 PO (19:08)
[2018-02-11] MEDS ORDERED: MULT-1092 PO (19:08)
[2018-02-11] MEDS ORDERED: METO25TA56 PO (19:08)
[2018-02-11] MEDS: SODIUM CHLORIDE 0.9% 1000ML 1,000 ML IV SCH (19:11)
--- NOTE | 2018-02-11 19:53 | History and Physical ---
History & Physical Date & Time of Service: Feb 11, 2018 ~ 18:00 Chief Complaint: Altered Mental Status Primary Care Physician: Neo Plascencia MD History of Present Illness 82-year-old female who presents to the ER with altered mental status. History is currently unobtainable from the patient due to her mental state. Daughter is the bedside who provides the history. She reports that the patient was outside working in her garden today. The daughter's (patient's son-in- law), was with the patient at the time. The patient had sat down on the ledge and slumped over. She was unresponsive but breathing for about 10 minutes. No seizure-like activity. When she came to, she was extremely confused. She was saying words that did not make sense. No slurred speech or facial droop was noted. At one point in time, patient reported left arm heaviness. Patient has history of TIAs with facial droop and left arm weakness. Patient's daughter reports that she has been doing well recently. No other reported illnesses. In the ED, stroke alert was called. Patient was not deemed a TPA candidate since she is anticoagulated on Eliquis. Patient's mental status started to improve however at the time my exam patient is confused again. UA suggest UTI. Labs are unremarkable. She is hemodynamically stable. She was treated with IVF, IV ceftriaxone, and 1 dose of IV Ativan. Past Medical/Surgical History Medical Problems: (1) Atrial fibrillation Status: Chronic (2) History of breast cancer Permanent Comment: intraductal carcinoma left breast, s/p lumpectomy Status: Chronic (3) History of osteoporosis Status: Chronic (4) History of pulmonary embolism Status: Chronic (5) Hx of MTHFR mutation Status: Chronic (6) Small bowel obstruction Status: Resolved (7) TIA (transient ischemic attack) Status: Chronic (8) Uterine prolapse Status: Chronic Surgical Problems: (1) H/O oophorectomy Status: Chronic (2) History of bladder surgery Status: Chronic (3) History of hysterectomy Status: Chronic (4) Lysis of adhesions Status: Chronic (5) Status post hysterectomy Status: Chronic (6) Status post partial mastectomy Permanent Comment: left breast, DCIS Status: Chronic Family History Noncontributory secondary to patient's advanced age Social History Smoking Status: Never Smoker Alcohol Use: none Housing status: lives alone Immunizations History of Influenza Vaccine: Yes Influenza Vaccine Date: Jul 27, 2017 History of Tetanus Vaccine?: Yes Tetanus Immunization Date: Jan 01, 2000 History of Pneumococcal: Yes Pneumococcal Date: Mar 29, 2015 Allergies Coded Allergies: Tetanus Toxoid (Verified Allergy, Mild, SWELLING AND REDNESS, 10/08/17) Home Medications Scheduled Apixaban (Eliquis), 2.5 MG PO Q12H Aspirin (Aspirin Ec), 81 MG PO DAILY Atorvastatin (Lipitor), 20 MG PO DAILY Cholecalciferol (Vitamin D), 1,000 UNITS PO DAILY Cyanocobalamin (Vitamin B-12), 1 TAB PO DAILY Docusate Sodium (Colace), 100 MG PO BID Folic Acid (Folvite), 1 MG PO DAILY Gabapentin (Gabapentin), 100 MG PO HS Lisinopril (Lisinopril), 10 MG PO DAILY Metoprolol Tartrate (Lopressor) (Lopressor), 12.5 MG PO BID Multiple Vitamins W/ Minerals (Centrum Silver 50+Women), 1 TAB PO DAILY Omeprazole (Prilosec), 20 MG PO DAILY Polyethylene Glycol 3350 (Miralax), 17 GM PO DAILY Senna/Docusate Sod (Senokot S), 1 TAB PO DAILY Review of Systems Unable to be completed with patient due to mental status Physical Exam Vital Signs Date Time Temp Pulse Resp B/P (MAP) Pulse Ox O2 Delivery O2 Flow Rate FiO2 02/11/18 19:22 112 22 208/102 97 02/11/18 18:44 112 22 208/102 97 Room Air NIBP 02/11/18 17:33 64 18 170/85 99 Room Air 02/11/18 17:07 69 18 183/90 99 Room Air 02/11/18 17:02 64 02/11/18 16:30 Room Air 02/11/18 16:25 36.6 66 18 139/82 100 Room Air General Appearance: WD/WN, no apparent distress, + pertinent finding (Patient very restless in bed, attempting to get out of bed and pulling at gown and wires ) Head: normocephalic, atraumatic Eyes: normal inspection, EOMI, sclerae normal ENT: hearing grossly normal, + pertinent finding (Mucous membranes moist) Neck: supple, no JVD, trachea midline Respiratory/Chest: lungs clear, normal breath sounds, no respiratory distress Cardiovascular: regular rate, rhythm, no edema, normal peripheral pulses Abdomen/GI: normal bowel sounds, non tender, soft, no organomegaly Extremities/Musculoskelatal: normal inspection, no calf tenderness, normal capillary refill Neurologic/Psych: alert, + pertinent finding (Patient moving all 4 extremities in bed, very restless and pulling at gown and wires, responds when name is called however does not follow commands or answer questions) Skin: normal color, warm/dry Diagnostics Laboratory Results Results Past 24 Hours Test 02/11/18 16:35 02/11/18 17:05 02/11/18 17:52 Range/Units White Blood Count 5.90 4.8-10.8 K/uL Red Blood Count 4.17 4.2-5.4 M/uL Hemoglobin 12.5 12.0-16.0 g/dL Hematocrit 38.2 37-47 % Mean Corpuscular Volume 91.6 80-100 fL Mean Corpuscular Hemoglobin 30.0 25-34 pg Mean Corpuscular Hemoglobin Concent 32.7 32-36 g/dl Platelet Count 217 130-400 K/uL Mean Platelet Volume 9.3 7.4-10.4 fL Neutrophils (%) (Auto) 69.7 % Lymphocytes (%) (Auto) 19.0 % Monocytes (%) (Auto) 9.8 % Eosinophils (%) (Auto) 0.8 % Basophils (%) (Auto) 0.5 % Neutrophils # (Auto) 4.11 1.4-6.5 K/uL Lymphocytes # (Auto) 1.12 1.2-3.4 K/uL Monocytes # (Auto) 0.58 0.11-0.59 K/uL Eosinophils # (Auto) 0.05 0-0.5 K/uL Basophils # (Auto) 0.03 0-0.2 K/uL RDW Standard Deviation 46.4 36.4-46.3 fL RDW Coefficient of Variation 13.9 11.5-14.5 % Immature Granulocyte % (Auto) 0.2 % Immature Granulocyte # (Auto) 0.01 0.00-0.02 K/uL Prothrombin Time 10.5 9.0-12.0 SECONDS Prothromb Time International Ratio 1.0 0.9-1.1 Activated Partial Thromboplast Time 24.7 21.0-31.0 SECONDS Partial Thromboplastin Ratio 1.0 Venous Blood pH 7.40 7.36-7.41 Venous Blood Partial Pressure CO2 47 38.0-50.0 mmHg Venous Blood Partial Pressure O2 34 mmHg Venous Blood HCO3 28 mmol/L Venous Blood Oxygen Saturation 62.3 % Venous Blood Base Excess 2.6 mEq/L Sodium Level 139 136-145 mmol/L Potassium Level 4.0 3.5-5.1 mmol/L Chloride Level 106 98-107 mmol/L Carbon Dioxide Level 28 21-32 mmol/L Anion Gap 6.0 3-11 mmol/L Blood Urea Nitrogen 27 7-18 mg/dl Creatinine 0.89 0.60-1.20 mg/dl Est Creatinine Clear Calc Drug Dose 33.8 ml/min Estimated GFR () 69.0 Estimated GFR (Non- 59.5 BUN/Creatinine Ratio 30.5 10-20 Random Glucose 97 70-99 mg/dl Calcium Level 8.9 8.5-10.1 mg/dl Magnesium Level 1.9 1.8-2.4 mg/dl Total Creatine Kinase 102 26-192 U/L Creatine Kinase MB 4.9 0.5-3.6 ng/ml Creatine Kinase MB Ratio 4.8 0-3.0 Troponin I < 0.015 0-0.045 ng/ml Urine Color YELLOW Urine Appearance CLEAR CLEAR Urine pH 6.5 4.5-7.5 Urine Specific [place] 1.022 1.000-1.030 Urine Protein NEG NEG Urine Glucose (UA) NEG NEG Urine Ketones TRACE NEG Urine Occult Blood 1+ NEG Urine Nitrite POS NEG Urine Bilirubin NEG NEG Urine Urobilinogen NEG NEG Urine Leukocyte Esterase TRACE NEG Urine WBC (Auto) 1-5 0-5 /hpf Urine RBC (Auto) 0-4 0-4 /hpf Urine Hyaline Casts (Auto) 5-10 0-5 /lpf Urine Epithelial Cells (Auto) 10-20 0-5 /lpf Urine Bacteria (Auto) 4+ NEG Bedside Lactic Acid Venous 1.77 0.90-1.70 mmol/L Microbiology Results 02/11/18 Urine Culture, Received Pending Diagnostic Radiology HEAD CT IMPRESSION: No acute intracranial findings. No significant change since previous exam. CXR IMPRESSION: Chronic change. No acute process. Impression Assessment and Plan ALTERED MENTAL STATUS -Admit to telemetry -Patient presenting with sudden onset of unresponsive episode, confusion, and reported left arm heaviness -Stroke alert called in the ED, patient considered not a candidate for TPA while anticoagulated on Eliquis -Patient currently moving all 4 extremities however remains confused -Has history of TIA and stroke, currently on aspirin and Eliquis for paroxysmal atrial fibrillation -Had echocardiogram and carotid Dopplers in 08/2017 that were unremarkable; EEG in 09/2017 unremarkable -With UA suggesting UTI, suspect that this is delirium/metabolic encephalopathy from UTI however given patient's history of TIAs, will obtain brain MRI -Neurology consult UTI -S/P Rocephin in the ED, will continue with -Follow-up urine culture -Do not suspect sepsis PAROXYSMAL ATRIAL FIBRILLATION -Currently in NSR -Rate controlled on metoprolol, will continue -Anticoagulated on Eliquis which will be continued HISTORY OF TIA -Continue aspirin and statin -On Eliquis for paroxysmal atrial fibrillation as above HYPERTENSION -BP initially controlled however somewhat elevated during periods of agitation -For now will continue lisinopril and metoprolol, make adjustments as needed GERD -Continue PPI DVT PROPHYLAXIS -On Eliquis CODE STATUS -Patient is a full code as per my discussion with her daughters were at the bedside. DISPOSITION -In my clinical judgment this beneficiary meets acute admission criteria, established by [facility], that includes being hospitalized through two midnights. -PT/OT, case management consults Attending Addendum Pt was seen and examined. Agreed with Kamila RUCKER exam, assessment and plan. 82- year-old female with PMH TIA, Afib presents to the ER with altered mental status. History is limited due to pt mental statue and being agitated.Pt is confused currently and trying to pull out her IV access. Stroke alert was called and CT head done in the ER showed no acute intracranial abnormality. UA on admission was positive for leukocytes and nitrites. Change in mental status mostly related to UTI. Starting on Rocephin IV. Will get a MRI of the brain to r /o CVA. Will put on soft restraint to prevent self injury. continue 1 to 1 observation and fall precaution. Continue neuro check and tele monitor. MD Cassandra Resuscitation Status VTE Prophylaxis Will order VTE Prophylaxis: Yes
[2018-02-11] MEDS ORDERED: HALOPERIDOL LACTATE 5 MG/ML 1 ML VIAL IV ONE (20:30)
[2018-02-11] MEDS: METOPROLOL TARTRATE 25 MG TAB PO SCH (21:00)
[2018-02-11] MEDS ORDERED: HALOPERIDOL LACTATE 5 MG/ML 1 ML VIAL IM ONE (21:00)
[2018-02-11] MEDS: APIXABAN 2.5 MG TAB PO SCH (21:00)
[2018-02-11] MEDS: GABAPENTIN 100 MG CAP PO SCH (21:00)
[2018-02-11] MEDS: DOCUSATE SODIUM 100 MG CAP PO SCH (21:00)
[2018-02-11 22:21] VITALS: BP 197/78; PULSE 121; TEMP 36.7; O2SAT 94
[2018-02-11] MEDS ORDERED: LORAZEPAM INJ 0.25 MG in SYRINGE 0.25 ML IV ONE (23:00)
[2018-02-11] MEDS ORDERED: LORAZEPAM 2 MG/ML 1 ML VIAL IV ONE (23:00)
[2018-02-12] MEDS: SODIUM CHLORIDE 0.9% 1000ML 1,000 ML IV SCH ×2 (00:41→15:41)
[2018-02-12] MEDS ORDERED: ENALAPRILAT IV 1.25 MG in DEXTROSE 5% 25ML 25 ML IV PRN (01:15)
[2018-02-12 03:51] VITALS: BP 140/87; PULSE 99; TEMP 37.1; O2SAT 93
[2018-02-12 05:24] VITALS: Ht 154.9 cm; Wt 48.0 kg
[2018-02-12 06:07] LABS: BASO % 0.2 %; BASO ABS # 0.02 K/uL (0-0.2); HEMATOCRIT 42.3 % (37-47); HEMOGLOBIN 14.1 g/dL (12.0-16.0); IG# 0.02 K/uL (0.00-0.02); LYMPH % 5.7 %; LYMPH ABS # 0.69 K/uL (1.2-3.4); MEAN CELL VOLUME 90.4 fL (80-100); MEAN CORPUSCULAR HEMOGLOBIN 30.1 pg (25-34); MEAN CORPUSCULAR HGB CONC 33.3 g/dl (32-36); MEAN PLATELET VOLUME 9.3 fL (7.4-10.4); MONO ABS # 1.08 K/uL (0.11-0.59); NEUT % 84.9 %; NEUT ABS # 10.23 K/uL (1.4-6.5); PLATELET COUNT 236 K/uL (130-400); RED CELL DISTRIBUTION WIDTH CV 13.9 % (11.5-14.5); RED CELL DISTRIBUTION WIDTH SD 45.7 fL (36.4-46.3); WHITE BLOOD COUNT 12.04 K/uL (4.8-10.8)
[2018-02-12 06:23] LABS: CALCIUM 9.2 mg/dl (8.5-10.1); CREATININE 0.81 mg/dl (0.60-1.20); POTASSIUM 3.8 mmol/L (3.5-5.1)
[2018-02-12 07:26] VITALS: BP 128/79; PULSE 98; TEMP 37.2
[2018-02-12] MEDS: DOCUSATE SODIUM 100 MG CAP PO SCH ×2 (07:49→21:41)
[2018-02-12] MEDS: ASPIRIN 81 MG ECTAB PO SCH (07:49)
[2018-02-12] MEDS: ATORVASTATIN 20 MG TAB PO SCH (07:50)
[2018-02-12] MEDS: PANTOprazole SOD 40 MG TAB PO SCH (07:50)
[2018-02-12] MEDS: APIXABAN 2.5 MG TAB PO SCH ×2 (07:50→21:42)
[2018-02-12] MEDS: METOPROLOL TARTRATE 25 MG TAB PO SCH ×2 (07:50→21:42)
[2018-02-12] MEDS: POLYETHYLENE (MIRALAX) 17 GM PACK PO SCH (07:50)
[2018-02-12] MEDS: CEROVITE ADV FORMULA TAB PO SCH (07:50)
[2018-02-12] MEDS: CYANOCOBALAMIN 500 MCG TAB (VIT B-12) PO SCH (07:51)
[2018-02-12] MEDS: LISINOPRIL 10 MG TAB PO SCH (07:51)
[2018-02-12] MEDS: CHOLECALCIFEROL 1000 INTER.UNIT TAB PO SCH (07:51)
[2018-02-12] MEDS: DOCUSATE SODIUM/SENNA 50/8.6MG TAB PO SCH (07:51)
[2018-02-12] MEDS ORDERED: LORAZEPAM INJ 0.5 MG in SYRINGE 0.25 ML IV SCH (10:00)
[2018-02-12 11:54] LABS: ISTAT CREATININE 0.8 mg/dl (0.6-1.3); ISTAT SODIUM 140 mEq/L (135-144)
--- NOTE | 2018-02-12 14:55 | Neurology Consultation ---
Neurology Consultation Date of Consultation: Feb 12, 2018. Attending Physician: Gage Vega DO Primary Care Physician: Neo Plascencia MD Reason for Consultation: altered MS History of Present Illness Source: patient Alexa is an 82 year old female with a PMH TIA, uterine prolapse, MTHRR mutation , afib on Eliquis who presents to the ER with altered mental status. Daughter reportedly provided the history. Her mother was outside working in her garden and sat down on the ledge and slumped over. She was unresponsive but breathing for about 10 minutes but no reported seizure like activity but was extremely confused when she woke. She was saying words that did not make sense but no slurred speech or facial droop but she states her arm got heavy. She has a history of TIAs with facial droop and left arm weakness. No recent illnesses. She was not a candidate for tPA due to being on Eliquis. An MRI was attempted but she was too agitated. She was given ativan and currently she is sleeping. Upon awaking she does know she is in a hospital but uncertain why she is here. denies CP, SOB, abdominal pain, one sided numbness, tingling weakness, N, V, vision changes. Past Medical/Surgical History Medical Problems: (1) Abdominal pain Status: Acute (2) Acute electrocardiogram changes Status: Acute (3) Atrial fibrillation Status: Acute (4) SBO (small bowel obstruction) Status: Acute (5) UTI (urinary tract infection) Status: Acute Social History Smoking Status: Never smoker Smokeless Tobacco Use: No Alcohol Use: none Housing Status: lives with family Allergies Coded Allergies: Tetanus Toxoid (Verified Allergy, Mild, SWELLING AND REDNESS, 10/08/17) Current Inpatient Medications Current Inpatient Medications Medications (Trade) Dose Ordered Sig/Brandy Route Start Time Stop Time Status Last Admin Dose Admin Sodium Chloride 1,000 ml @ 80 mls/hr [id number] IV 02/11/18 18:31 03/13/18 18:30 02/12/18 00:41 80 MLS/HR Acetaminophen (Tylenol Tab) 650 mg Q4H PRN PO 02/11/18 18:45 03/13/18 18:44 Ondansetron HCl (Zofran Inj) 4 mg Q6H PRN IV 02/11/18 18:45 03/13/18 18:44 Miscellaneous Information (Pharmacist Discharge Med Rec Consult) 1 ea UD PRN N/A 02/11/18 18:45 03/13/18 18:44 Ceftriaxone Sodium 1 gm/ Dextrose 50 ml @ 100 mls/hr Q24H IV 02/12/18 17:00 02/22/18 16:59 Apixaban (Eliquis Tab) 2.5 mg BID PO 02/11/18 21:00 03/13/18 20:59 Aspirin (Ecotrin Tab) 81 mg DAILY PO 02/12/18 09:00 03/14/18 08:59 Atorvastatin Calcium (Lipitor Tab) 20 mg DAILY PO 02/12/18 09:00 03/14/18 08:59 Cholecalciferol (Vitamin D Tab) 1,000 inter.unit DAILY PO 02/12/18 09:00 03/14/18 08:59 Cyanocobalamin (Vitamin B-12 Tab) 500 mcg DAILY PO 02/12/18 09:00 03/14/18 08:59 Docusate Sodium (coLACE CAP) 100 mg BID PO 02/11/18 21:00 03/13/18 20:59 Folic Acid (Folvite Tab) 1 mg DAILY PO 02/12/18 09:00 03/14/18 08:59 Gabapentin (Neurontin Cap) 100 mg HS PO 02/11/18 21:00 03/13/18 20:59 Lisinopril (Zestril Tab) 10 mg DAILY PO 02/12/18 09:00 03/14/18 08:59 Metoprolol Tartrate (Lopressor Tab) 12.5 mg BID PO 02/11/18 21:00 03/13/18 20:59 Multivitamins/ Minerals (Multivitamin W/ Minerals Tab) 1 tab DAILY PO 02/12/18 09:00 03/14/18 08:59 Polyethylene (Miralax Powder Packet) 17 gm DAILY PO 02/12/18 09:00 03/14/18 08:59 Senna/Docusate Sodium (Senokot S Tab) 1 tab DAILY PO 02/12/18 09:00 03/14/18 08:59 Pantoprazole Sodium (Protonix Tab) 40 mg QAM PO 02/12/18 09:00 03/14/18 08:59 Enalaprilat 1.25 mg/Dextrose 26 ml @ 100 mls/hr Q6 PRN IV 02/12/18 01:15 03/14/18 01:14 02/12/18 01:52 100 MLS/HR Physical Exam Vital Signs (Past 24 Hrs): Date Time Temp Pulse Resp B/P (MAP) Pulse Ox O2 Delivery O2 Flow Rate FiO2 02/12/18 12:00 Room Air 02/12/18 08:00 Room Air 02/12/18 07:26 37.2 98 16 128/79 (95) Room Air 02/12/18 05:24 Room Air 02/12/18 03:51 37.1 99 18 140/87 (104) 93 Room Air 02/11/18 22:21 36.7 121 24 197/78 (117) 94 Room Air 02/11/18 20:17 Room Air 02/11/18 19:22 112 22 208/102 97 02/11/18 18:44 112 22 208/102 97 Room Air NIBP 02/11/18 17:33 64 18 170/85 99 Room Air 02/11/18 17:07 69 18 183/90 99 Room Air 02/11/18 17:02 64 02/11/18 16:30 Room Air 02/11/18 16:25 36.6 66 18 139/82 100 Room Air Physical Exam: Constitutional: appearance nourished, healthy thin, no bumps or bruising on head or face Ears, Nose, Mouth and Throat: mucous membranes moist, no injection and skin normal, eyes normal Cardiovascular: irregular Respiratory: clear to auscultation (CTA) and no rales, rhonchi or wheeze Musculoskeletal: no peripheral edema and good distal pulses Skin: no stigmata of neurocutaneous disease noted and normal and intact Eyes: extraocular muscles intact (EOMI) and pupils equal, round and reactive to light (PERRL) NEUROLOGIC EXAMINATION: Mental status: Alert and interactive Oriented 2018, president [facility], [facility] states she lives in [place] Oriented to person Speech fluent with no evidence of aphasia Cranial Nerves smile eye brow raise symmetric Reflexes: Deep tendon reflexes were symmetrical and graded 2/5. Plantar responses were flexor. Sensory: cool touch or vibration Coordination: does not cooperate with finger to nose Gait/Stance: Posture lying in bed Motor: Negative for pronator drift of out stretched arms with eyes closed. Strength: biceps triceps hand manager power 5/5 bilaterally, hip flex bilaterally 5/5, plantar flex ext 5/5 Laboratory Results Past 24 Hours: 02/12/18 05:49 Red Blood Count 4.68, Mean Corpuscular Volume 90.4, Mean Corpuscular Hemoglobin 30.1, Mean Corpuscular Hemoglobin Concent 33.3, Mean Platelet Volume 9.3, Neutrophils (%) (Auto) 84.9, Lymphocytes (%) (Auto) 5.7, Monocytes (%) (Auto) 9.0, Eosinophils (%) (Auto) 0.0, Basophils (%) (Auto) 0.2, Neutrophils # (Auto) 10.23, Lymphocytes # (Auto) 0.69, Monocytes # (Auto) 1.08, Eosinophils # (Auto) 0.00, Basophils # (Auto) 0.02 02/12/18 05:49 Test 02/11/18 16:28 02/11/18 16:35 02/11/18 16:37 02/11/18 17:05 Bedside Glucose 91 mg/dl (70-90) Prothrombin Time 10.5 SECONDS (9.0-12.0) Prothromb Time International Ratio 1.0 (0.9-1.1) Activated Partial Thromboplast Time 24.7 SECONDS (21.0-31.0) Partial Thromboplastin Ratio 1.0 Venous Blood pH 7.40 (7.36-7.41) Venous Blood Partial Pressure CO2 47 mmHg (38.0-50.0) Venous Blood Partial Pressure O2 34 mmHg Venous Blood HCO3 28 mmol/L Venous Blood Oxygen Saturation 62.3 % Venous Blood Base Excess 2.6 mEq/L Magnesium Level 1.9 mg/dl (1.8-2.4) Total Creatine Kinase 102 U/L (26-192) Creatine Kinase MB 4.9 ng/ml (0.5-3.6) Creatine Kinase MB Ratio 4.8 (0-3.0) Troponin I < 0.015 ng/ml (0-0.045) Bedside Hemoglobin 12.2 g/dl (12.0-16.0) Bedside Hematocrit 36 % (37-47) Bedside Sodium 140 mEq/L (135-144) Bedside Potassium 4.0 mEq/L (3.3-5.0) Bedside Chloride 103 mEq/L (101-112) Bedside Total CO2 26 mEq/l (24-31) Bedside Blood Urea Nitrogen 32 mg/dl (7-18) Bedside Creatinine 0.8 mg/dl (0.6-1.3) Bedside Glucose (other) mg/dl (70-99) Bedside Ionized Calcium (Kamran) 1.20 mmol/l (1.12-1.32) Urine Color YELLOW Urine Appearance CLEAR (CLEAR) Urine pH 6.5 (4.5-7.5) Urine Specific [place] 1.022 (1.000-1.030) Urine Protein NEG (NEG) Urine Glucose (UA) NEG (NEG) Urine Ketones TRACE (NEG) Urine Occult Blood 1+ (NEG) Urine Nitrite POS (NEG) Urine Bilirubin NEG (NEG) Urine Urobilinogen NEG (NEG) Urine Leukocyte Esterase TRACE (NEG) Urine WBC (Auto) 1-5 /hpf (0-5) Urine RBC (Auto) 0-4 /hpf (0-4) Urine Hyaline Casts (Auto) 5-10 /lpf (0-5) Urine Epithelial Cells (Auto) 10-20 /lpf (0-5) Urine Bacteria (Auto) 4+ (NEG) Test 02/11/18 17:52 02/12/18 05:49 Bedside Lactic Acid Venous 1.77 mmol/L (0.90-1.70) White Blood Count 12.04 K/uL (4.8-10.8) Red Blood Count 4.68 M/uL (4.2-5.4) Hemoglobin 14.1 g/dL (12.0-16.0) Hematocrit 42.3 % (37-47) Mean Corpuscular Volume 90.4 fL (80-100) Mean Corpuscular Hemoglobin 30.1 pg (25-34) Mean Corpuscular Hemoglobin Concent 33.3 g/dl (32-36) Platelet Count 236 K/uL (130-400) Mean Platelet Volume 9.3 fL (7.4-10.4) Neutrophils (%) (Auto) 84.9 % Lymphocytes (%) (Auto) 5.7 % Monocytes (%) (Auto) 9.0 % Eosinophils (%) (Auto) 0.0 % Basophils (%) (Auto) 0.2 % Neutrophils # (Auto) 10.23 K/uL (1.4-6.5) Lymphocytes # (Auto) 0.69 K/uL (1.2-3.4) Monocytes # (Auto) 1.08 K/uL (0.11-0.59) Eosinophils # (Auto) 0.00 K/uL (0-0.5) Basophils # (Auto) 0.02 K/uL (0-0.2) RDW Standard Deviation 45.7 fL (36.4-46.3) RDW Coefficient of Variation 13.9 % (11.5-14.5) Immature Granulocyte % (Auto) 0.2 % Immature Granulocyte # (Auto) 0.02 K/uL (0.00-0.02) Anion Gap 6.0 mmol/L (3-11) Est Creatinine Clear Calc Drug Dose 37.0 ml/min Estimated GFR () 77.3 Estimated GFR (Non- 66.7 BUN/Creatinine Ratio 24.3 (10-20) Calcium Level 9.2 mg/dl (8.5-10.1) Imaging CT head- No acute intracranial findings. No significant change since previous exam. Impression 82 year old female PMH TIA with LOC, and confusion- +UTI Plan 1. CT head no acute findings 2. attempted MRI -agitation 3. EEG -possible seizure 4. UTI receiving - cefriaxone- e coli 5. continue Eliquis and aspirin 6. PT/OT for discharge needs 7. further evaluation once Ativan wears off 8. orthostatic blood pressures I have seen and discussed above patient with Dr Angela Phillip, neurology Pt seen, sedated but oriented, no facial asymmetry or asymmetry to strength UE and LE. Pt had LOC x 10 min without sz activity. I wonder if pt was continued to be upright while this occurred. Doubt post circ ischemia or sz. Agree with EEG, relatively recently pt has had CTA of the head which did not show high grade vb stenosis. Rec eval for arrhythmia, orthostasis. MONIKA Phillip MD
--- NOTE | 2018-02-12 15:51 | Progress Note ---
Subjective Date of Service: Feb 12, 2018. Subjective Pt evaluation today including: conversation w/ patient, conversation w/ family , physical exam, lab review, review of studies, conversation w/ executive consultant, review of inpatient medication list Saw/examined the patient in room 289 she was agitated and confused earlier today; clearing up slightly with her disorientation recalling some of the events prior to arrival could not have MRI due to agitation Problem List Medical Problems: (1) Abdominal pain Status: Acute (2) Acute electrocardiogram changes Status: Acute (3) Atrial fibrillation Status: Acute (4) SBO (small bowel obstruction) Status: Acute (5) UTI (urinary tract infection) Status: Acute Medications Current Inpatient Medications Medications (Trade) Dose Ordered Sig/Brandy Route Start Time Stop Time Status Last Admin Dose Admin Sodium Chloride 1,000 ml @ 80 mls/hr [id number] IV 02/11/18 18:31 03/13/18 18:30 02/12/18 00:41 80 MLS/HR Acetaminophen (Tylenol Tab) 650 mg Q4H PRN PO 02/11/18 18:45 03/13/18 18:44 Ondansetron HCl (Zofran Inj) 4 mg Q6H PRN IV 02/11/18 18:45 03/13/18 18:44 Miscellaneous Information (Pharmacist Discharge Med Rec Consult) 1 ea UD PRN N/A 02/11/18 18:45 03/13/18 18:44 Ceftriaxone Sodium 1 gm/ Dextrose 50 ml @ 100 mls/hr Q24H IV 02/12/18 17:00 02/22/18 16:59 Apixaban (Eliquis Tab) 2.5 mg BID PO 02/11/18 21:00 03/13/18 20:59 Aspirin (Ecotrin Tab) 81 mg DAILY PO 02/12/18 09:00 03/14/18 08:59 Atorvastatin Calcium (Lipitor Tab) 20 mg DAILY PO 02/12/18 09:00 03/14/18 08:59 Cholecalciferol (Vitamin D Tab) 1,000 inter.unit DAILY PO 02/12/18 09:00 03/14/18 08:59 Cyanocobalamin (Vitamin B-12 Tab) 500 mcg DAILY PO 02/12/18 09:00 03/14/18 08:59 Docusate Sodium (coLACE CAP) 100 mg BID PO 02/11/18 21:00 03/13/18 20:59 Folic Acid (Folvite Tab) 1 mg DAILY PO 02/12/18 09:00 03/14/18 08:59 Gabapentin (Neurontin Cap) 100 mg HS PO 02/11/18 21:00 03/13/18 20:59 Lisinopril (Zestril Tab) 10 mg DAILY PO 02/12/18 09:00 03/14/18 08:59 Metoprolol Tartrate (Lopressor Tab) 12.5 mg BID PO 02/11/18 21:00 03/13/18 20:59 Multivitamins/ Minerals (Multivitamin W/ Minerals Tab) 1 tab DAILY PO 02/12/18 09:00 03/14/18 08:59 Polyethylene (Miralax Powder Packet) 17 gm DAILY PO 02/12/18 09:00 03/14/18 08:59 Senna/Docusate Sodium (Senokot S Tab) 1 tab DAILY PO 02/12/18 09:00 03/14/18 08:59 Pantoprazole Sodium (Protonix Tab) 40 mg QAM PO 02/12/18 09:00 03/14/18 08:59 Enalaprilat 1.25 mg/Dextrose 26 ml @ 100 mls/hr Q6 PRN IV 02/12/18 01:15 03/14/18 01:14 02/12/18 01:52 100 MLS/HR Objective Vital Signs Date Time Temp Pulse Resp B/P (MAP) Pulse Ox O2 Delivery O2 Flow Rate FiO2 02/12/18 12:00 Room Air 02/12/18 08:00 Room Air 02/12/18 07:26 37.2 98 16 128/79 (95) Room Air 02/12/18 05:24 Room Air 02/12/18 03:51 37.1 99 18 140/87 (104) 93 Room Air 02/11/18 22:21 36.7 121 24 197/78 (117) 94 Room Air 02/11/18 20:17 Room Air 02/11/18 19:22 112 22 208/102 97 02/11/18 18:44 112 22 208/102 97 Room Air NIBP 02/11/18 17:33 64 18 170/85 99 Room Air 02/11/18 17:07 69 18 183/90 99 Room Air 02/11/18 17:02 64 02/11/18 16:30 Room Air 02/11/18 16:25 36.6 66 18 139/82 100 Room Air Physical Exam General Appearance: + pertinent finding (confusion) Respiratory/Chest: lungs clear, normal breath sounds, no respiratory distress, no accessory muscle use Cardiovascular: + irregularly irregular Extremities: normal inspection, no pedal edema Neurologic/Psychiatric: + disoriented, + pertinent finding (lethargy, weak) Laboratory Results Last 24 Hours Test 02/11/18 16:28 02/11/18 16:35 02/11/18 16:37 02/11/18 17:05 Bedside Glucose 91 mg/dl White Blood Count 5.90 K/uL Red Blood Count 4.17 M/uL Hemoglobin 12.5 g/dL Hematocrit 38.2 % Mean Corpuscular Volume 91.6 fL Mean Corpuscular Hemoglobin 30.0 pg Mean Corpuscular Hemoglobin Concent 32.7 g/dl Platelet Count 217 K/uL Mean Platelet Volume 9.3 fL Neutrophils (%) (Auto) 69.7 % Lymphocytes (%) (Auto) 19.0 % Monocytes (%) (Auto) 9.8 % Eosinophils (%) (Auto) 0.8 % Basophils (%) (Auto) 0.5 % Neutrophils # (Auto) 4.11 K/uL Lymphocytes # (Auto) 1.12 K/uL Monocytes # (Auto) 0.58 K/uL Eosinophils # (Auto) 0.05 K/uL Basophils # (Auto) 0.03 K/uL RDW Standard Deviation 46.4 fL RDW Coefficient of Variation 13.9 % Immature Granulocyte % (Auto) 0.2 % Immature Granulocyte # (Auto) 0.01 K/uL Prothrombin Time 10.5 SECONDS Prothromb Time International Ratio 1.0 Activated Partial Thromboplast Time 24.7 SECONDS Partial Thromboplastin Ratio 1.0 Venous Blood pH 7.40 Venous Blood Partial Pressure CO2 47 mmHg Venous Blood Partial Pressure O2 34 mmHg Venous Blood HCO3 28 mmol/L Venous Blood Oxygen Saturation 62.3 % Venous Blood Base Excess 2.6 mEq/L Sodium Level 139 mmol/L Potassium Level 4.0 mmol/L Chloride Level 106 mmol/L Carbon Dioxide Level 28 mmol/L Anion Gap 6.0 mmol/L 16.0 mmol/L Blood Urea Nitrogen 27 mg/dl Creatinine 0.89 mg/dl Est Creatinine Clear Calc Drug Dose 33.8 ml/min Estimated GFR () 69.0 Estimated GFR (Non- 59.5 BUN/Creatinine Ratio 30.5 Random Glucose 97 mg/dl Calcium Level 8.9 mg/dl Magnesium Level 1.9 mg/dl Total Creatine Kinase 102 U/L Creatine Kinase MB 4.9 ng/ml Creatine Kinase MB Ratio 4.8 Troponin I < 0.015 ng/ml Bedside Hemoglobin 12.2 g/dl Bedside Hematocrit 36 % Bedside Sodium 140 mEq/L Bedside Potassium 4.0 mEq/L Bedside Chloride 103 mEq/L Bedside Total CO2 26 mEq/l Bedside Blood Urea Nitrogen 32 mg/dl Bedside Creatinine 0.8 mg/dl Bedside Glucose (other) mg/dl Bedside Ionized Calcium (Kamran) 1.20 mmol/l Urine Color YELLOW Urine Appearance CLEAR Urine pH 6.5 Urine Specific [place] 1.022 Urine Protein NEG Urine Glucose (UA) NEG Urine Ketones TRACE Urine Occult Blood 1+ Urine Nitrite POS Urine Bilirubin NEG Urine Urobilinogen NEG Urine Leukocyte Esterase TRACE Urine WBC (Auto) 1-5 /hpf Urine RBC (Auto) 0-4 /hpf Urine Hyaline Casts (Auto) 5-10 /lpf Urine Epithelial Cells (Auto) 10-20 /lpf Urine Bacteria (Auto) 4+ Test 02/11/18 17:52 02/12/18 05:49 Bedside Lactic Acid Venous 1.77 mmol/L White Blood Count 12.04 K/uL Red Blood Count 4.68 M/uL Hemoglobin 14.1 g/dL Hematocrit 42.3 % Mean Corpuscular Volume 90.4 fL Mean Corpuscular Hemoglobin 30.1 pg Mean Corpuscular Hemoglobin Concent 33.3 g/dl Platelet Count 236 K/uL Mean Platelet Volume 9.3 fL Neutrophils (%) (Auto) 84.9 % Lymphocytes (%) (Auto) 5.7 % Monocytes (%) (Auto) 9.0 % Eosinophils (%) (Auto) 0.0 % Basophils (%) (Auto) 0.2 % Neutrophils # (Auto) 10.23 K/uL Lymphocytes # (Auto) 0.69 K/uL Monocytes # (Auto) 1.08 K/uL Eosinophils # (Auto) 0.00 K/uL Basophils # (Auto) 0.02 K/uL RDW Standard Deviation 45.7 fL RDW Coefficient of Variation 13.9 % Immature Granulocyte % (Auto) 0.2 % Immature Granulocyte # (Auto) 0.02 K/uL Sodium Level 136 mmol/L Potassium Level 3.8 mmol/L Chloride Level 104 mmol/L Carbon Dioxide Level 26 mmol/L Anion Gap 6.0 mmol/L Blood Urea Nitrogen 20 mg/dl Creatinine 0.81 mg/dl Est Creatinine Clear Calc Drug Dose 37.0 ml/min Estimated GFR () 77.3 Estimated GFR (Non- 66.7 BUN/Creatinine Ratio 24.3 Random Glucose 124 mg/dl Calcium Level 9.2 mg/dl Assessment and Plan This is an 82 year old female with a past medical history of paroxysmal atrial fibrillation on long-term anticoagulation, HTN, HLD, hx. of TIA/CVA - presents with syncope and loss of consciousness, altered mental status Metabolic Encephalopathy secondary to UTI - UA dirty, urine culture - e. coli; sensitivities pending - currently on Rocephin, which we will continue - gentle IV hydration - appreciate neurology input, MRI and EEG to r/o stroke/seizures Paroxysmal A. Fib - continue Eliquis - continue b-sara - currently in A. fib with rate control HTN - d/c IV Vasotec - continue home meds DVT ppx - Eliquis FULL CODE
[2018-02-12] MEDS: CEFTRIAXONE SOD INJ 1 GM in DEXTROSE 5% ADD-VANTAGE 50ML 50 ML IV SCH (16:52)
[2018-02-12 20:11] VITALS: BP 119/68; PULSE 80; TEMP 36.4
[2018-02-12 21:40] VITALS: BP 150/75; PULSE 72
[2018-02-12] MEDS: GABAPENTIN 100 MG CAP PO SCH (21:43)
[2018-02-12 23:08] VITALS: BP 109/65; PULSE 70; TEMP 36.5; O2SAT 95
[2018-02-13] VITALS (11 sets, daily range): BP systolic 115–179; BP diastolic 67–98; PULSE 58–101; TEMP 36.3–36.9; O2SAT 92–99
[2018-02-13] MEDS: SODIUM CHLORIDE 0.9% 1000ML 1,000 ML IV SCH ×2 (04:51→17:39)
[2018-02-13 06:10] LABS: BASO % 0.3 %; BASO ABS # 0.02 K/uL (0-0.2); EOS % 1.2 %; EOS ABS # 0.07 K/uL (0-0.5); HEMATOCRIT 37.9 % (37-47); HEMOGLOBIN 12.4 g/dL (12.0-16.0); IG# 0.01 K/uL (0.00-0.02); LYMPH % 19.8 %; LYMPH ABS # 1.15 K/uL (1.2-3.4); MEAN CELL VOLUME 91.3 fL (80-100); MEAN CORPUSCULAR HEMOGLOBIN 29.9 pg (25-34); MEAN CORPUSCULAR HGB CONC 32.7 g/dl (32-36); MEAN PLATELET VOLUME 9.5 fL (7.4-10.4); MONO ABS # 0.81 K/uL (0.11-0.59); NEUT % 64.5 %; NEUT ABS # 3.74 K/uL (1.4-6.5); PLATELET COUNT 210 K/uL (130-400); RED CELL DISTRIBUTION WIDTH CV 14.2 % (11.5-14.5); RED CELL DISTRIBUTION WIDTH SD 47.7 fL (36.4-46.3)
[2018-02-13] MEDS: LISINOPRIL 10 MG TAB PO SCH (06:27)
[2018-02-13 06:39] LABS: CALCIUM 8.3 mg/dl (8.5-10.1); CREATININE 0.65 mg/dl (0.60-1.20); POTASSIUM 3.5 mmol/L (3.5-5.1)
[2018-02-13] MEDS: METOPROLOL TARTRATE 25 MG TAB PO SCH ×2 (08:34→20:22)
[2018-02-13] MEDS: CYANOCOBALAMIN 500 MCG TAB (VIT B-12) PO SCH (08:34)
[2018-02-13] MEDS: DOCUSATE SODIUM/SENNA 50/8.6MG TAB PO SCH (08:34)
[2018-02-13] MEDS: PANTOprazole SOD 40 MG TAB PO SCH (08:34)
[2018-02-13] MEDS: APIXABAN 2.5 MG TAB PO SCH ×2 (08:34→20:22)
[2018-02-13] MEDS: ATORVASTATIN 20 MG TAB PO SCH (08:35)
[2018-02-13] MEDS: ASPIRIN 81 MG ECTAB PO SCH (08:35)
[2018-02-13] MEDS: POLYETHYLENE (MIRALAX) 17 GM PACK PO SCH (08:35)
[2018-02-13] MEDS: CHOLECALCIFEROL 1000 INTER.UNIT TAB PO SCH (08:35)
[2018-02-13] MEDS: CEROVITE ADV FORMULA TAB PO SCH (08:35)
[2018-02-13] MEDS: DOCUSATE SODIUM 100 MG CAP PO SCH ×2 (08:44→20:22)
--- NOTE | 2018-02-13 09:09 | Progress Note ---
Subjective Date of Service: Feb 13, 2018. Subjective Pt evaluation today including: conversation w/ patient, physical exam, lab review, review of studies, review of inpatient medication list Voiding: incontinence Saw/examined the patient in room 289 She's awake, alert, oriented x3 - cannot recall the events that brought her to the hospital States she has chronic urinary incontinence, worse at night, so it was difficult for her to tell if she had any urinary frequency, denies dysuria She feels better today, denies fevers/chills; tolerating PO intake Problem List Medical Problems: (1) Abdominal pain Status: Acute (2) Acute electrocardiogram changes Status: Acute (3) Atrial fibrillation Status: Acute (4) SBO (small bowel obstruction) Status: Acute (5) UTI (urinary tract infection) Status: Acute Review of Systems Constitutional: + weakness, No fever, No chills Respiratory: No cough, No sputum, No shortness of breath Cardiac: No chest pain, No edema, No palpitations Abdomen: No pain, No nausea, No vomiting, No diarrhea Female : + incontinence, No dysuria, No urinary frequency, No hematuria, No abnormal vaginal bleeding, No vaginal discharge Medications Current Inpatient Medications Medications (Trade) Dose Ordered Sig/Brandy Route Start Time Stop Time Status Last Admin Dose Admin Sodium Chloride 1,000 ml @ 80 mls/hr [id number] IV 02/11/18 18:31 03/13/18 18:30 02/13/18 04:51 80 MLS/HR Acetaminophen (Tylenol Tab) 650 mg Q4H PRN PO 02/11/18 18:45 03/13/18 18:44 Ondansetron HCl (Zofran Inj) 4 mg Q6H PRN IV 02/11/18 18:45 03/13/18 18:44 Miscellaneous Information (Pharmacist Discharge Med Rec Consult) 1 ea UD PRN N/A 02/11/18 18:45 03/13/18 18:44 Ceftriaxone Sodium 1 gm/ Dextrose 50 ml @ 100 mls/hr Q24H IV 02/12/18 17:00 02/22/18 16:59 02/12/18 16:52 100 MLS/HR Apixaban (Eliquis Tab) 2.5 mg BID PO 02/11/18 21:00 03/13/18 20:59 02/13/18 08:34 2.5 MG Aspirin (Ecotrin Tab) 81 mg DAILY PO 02/12/18 09:00 03/14/18 08:59 02/13/18 08:35 81 MG Atorvastatin Calcium (Lipitor Tab) 20 mg DAILY PO 02/12/18 09:00 03/14/18 08:59 02/13/18 08:35 20 MG Cholecalciferol (Vitamin D Tab) 1,000 inter.unit DAILY PO 02/12/18 09:00 03/14/18 08:59 02/13/18 08:35 1,000 INTER.UNIT Cyanocobalamin (Vitamin B-12 Tab) 500 mcg DAILY PO 02/12/18 09:00 03/14/18 08:59 02/13/18 08:34 500 MCG Docusate Sodium (coLACE CAP) 100 mg BID PO 02/11/18 21:00 03/13/18 20:59 02/13/18 08:44 100 MG Folic Acid (Folvite Tab) 1 mg DAILY PO 02/12/18 09:00 03/14/18 08:59 02/13/18 08:34 1 MG Gabapentin (Neurontin Cap) 100 mg HS PO 02/11/18 21:00 03/13/18 20:59 02/12/18 21:43 100 MG Lisinopril (Zestril Tab) 10 mg DAILY PO 02/12/18 09:00 03/14/18 08:59 02/13/18 06:27 10 MG Metoprolol Tartrate (Lopressor Tab) 12.5 mg BID PO 02/11/18 21:00 03/13/18 20:59 02/13/18 08:34 12.5 MG Multivitamins/ Minerals (Multivitamin W/ Minerals Tab) 1 tab DAILY PO 02/12/18 09:00 03/14/18 08:59 02/13/18 08:35 1 TAB Polyethylene (Miralax Powder Packet) 17 gm DAILY PO 02/12/18 09:00 03/14/18 08:59 02/13/18 08:35 17 GM Senna/Docusate Sodium (Senokot S Tab) 1 tab DAILY PO 02/12/18 09:00 03/14/18 08:59 02/13/18 08:34 1 TAB Pantoprazole Sodium (Protonix Tab) 40 mg QAM PO 02/12/18 09:00 03/14/18 08:59 02/13/18 08:34 40 MG Objective Vital Signs Date Time Temp Pulse Resp B/P (MAP) Pulse Ox O2 Delivery O2 Flow Rate FiO2 02/13/18 06:59 36.5 58 18 174/81 (112) 99 Room Air 02/13/18 05:57 36.8 71 20 179/98 (125) 97 Room Air 02/13/18 04:00 Room Air 02/13/18 00:00 Room Air 02/12/18 23:08 36.5 70 18 109/65 (80) 95 Room Air 02/12/18 21:40 72 150/75 (100) 02/12/18 20:11 36.4 80 18 119/68 (85) 02/12/18 16:00 Room Air 02/12/18 12:00 Room Air Physical Exam General Appearance: no apparent distress, + thin Respiratory/Chest: lungs clear, normal breath sounds, no respiratory distress, no accessory muscle use Cardiovascular: regular rate, rhythm, no edema, no murmur Extremities: normal range of motion, non-tender, normal inspection, no pedal edema, no calf tenderness Neurologic/Psychiatric: no motor/sensory deficits, alert, normal mood/affect, oriented x 3 Laboratory Results Last 24 Hours Test 02/13/18 05:22 White Blood Count 5.80 K/uL Red Blood Count 4.15 M/uL Hemoglobin 12.4 g/dL Hematocrit 37.9 % Mean Corpuscular Volume 91.3 fL Mean Corpuscular Hemoglobin 29.9 pg Mean Corpuscular Hemoglobin Concent 32.7 g/dl Platelet Count 210 K/uL Mean Platelet Volume 9.5 fL Neutrophils (%) (Auto) 64.5 % Lymphocytes (%) (Auto) 19.8 % Monocytes (%) (Auto) 14.0 % Eosinophils (%) (Auto) 1.2 % Basophils (%) (Auto) 0.3 % Neutrophils # (Auto) 3.74 K/uL Lymphocytes # (Auto) 1.15 K/uL Monocytes # (Auto) 0.81 K/uL Eosinophils # (Auto) 0.07 K/uL Basophils # (Auto) 0.02 K/uL RDW Standard Deviation 47.7 fL RDW Coefficient of Variation 14.2 % Immature Granulocyte % (Auto) 0.2 % Immature Granulocyte # (Auto) 0.01 K/uL Sodium Level 140 mmol/L Potassium Level 3.5 mmol/L Chloride Level 109 mmol/L Carbon Dioxide Level 26 mmol/L Anion Gap 5.0 mmol/L Blood Urea Nitrogen 32 mg/dl Creatinine 0.65 mg/dl Est Creatinine Clear Calc Drug Dose 47.6 ml/min Estimated GFR () 94.5 Estimated GFR (Non- 81.5 BUN/Creatinine Ratio 49.9 Random Glucose 85 mg/dl Calcium Level 8.3 mg/dl Assessment and Plan This is an 82 year old female with a past medical history of paroxysmal atrial fibrillation on long-term anticoagulation, HTN, HLD, hx. of TIA/CVA - presents with syncope and loss of consciousness, altered mental status Metabolic Encephalopathy secondary to UTI 02/13 - improved clinically - culture - pansensitive E. coli - will continue Rocephin for one more day, then switch to Cefuroxime - continue IVFs for now - further testing as per neurology - canceled MRI; EEG pending 02/12 - UA dirty, urine culture - e. coli; sensitivities pending - currently on Rocephin, which we will continue - gentle IV hydration - appreciate neurology input, MRI and EEG to r/o stroke/seizures Paroxysmal A. Fib - continue Eliquis - continue b-sara - currently in A. fib with rate control HTN - d/c IV Vasotec - continue home meds DVT ppx - Eliquis FULL CODE
[2018-02-13] MEDS ORDERED: ENALAPRILAT IV 1.25 MG in DEXTROSE 5% 25ML 25 ML IV ONE (09:15)
--- NOTE | 2018-02-13 11:30 | PROGRESS NOTE ---
DATE: 02/13/2018 I am seeing Mrs. Johnson with an episode of unresponsiveness while seated upright without focal neurologic symptoms. She was unable to tolerate MRI yesterday. She has in the last several admissions and over time had unrevealing CTA of the head and neck due to recurrent episodes of left facial droop and left hand numbness. PHYSICAL EXAMINATION: GENERAL: The patient is awake and alert, oriented, cooperative. No facial asymmetry, no asymmetric strength in the upper or lower. VITAL SIGNS: 36.5, 65, 18, 160/82. IMPRESSION: Episode of loss of consciousness during which I believe the patient remained upright. Unlikely given the absence of focal findings that this represents posterior circulation ischemia and in part because the patient is both anticoagulated adequately and on antiplatelet therapy with aspirin and imaging in the last 6 or so months showing no evidence of high-grade posterior circulation stenosis. I would monitor for dysrhythmia, check for orthostatics and will for the sake of completion order an EEG. We will follow with you. ELLA
[2018-02-13] MEDS: CEFTRIAXONE SOD INJ 1 GM in DEXTROSE 5% ADD-VANTAGE 50ML 50 ML IV SCH (17:22)
[2018-02-13] MEDS: GABAPENTIN 100 MG CAP PO SCH (20:22)
[2018-02-14] VITALS (9 sets, daily range): BP systolic 126–179; BP diastolic 68–89; PULSE 61–77; TEMP 36.4–36.8; O2SAT 93–100
[2018-02-14 06:15] LABS: BASO % 0.5 %; BASO ABS # 0.03 K/uL (0-0.2); EOS % 1.8 %; EOS ABS # 0.12 K/uL (0-0.5); HEMATOCRIT 36.9 % (37-47); HEMOGLOBIN 12.1 g/dL (12.0-16.0); IG# 0.01 K/uL (0.00-0.02); LYMPH % 15.8 %; LYMPH ABS # 1.05 K/uL (1.2-3.4); MEAN CELL VOLUME 92.3 fL (80-100); MEAN CORPUSCULAR HEMOGLOBIN 30.3 pg (25-34); MEAN CORPUSCULAR HGB CONC 32.8 g/dl (32-36); MEAN PLATELET VOLUME 9.7 fL (7.4-10.4); MONO % 13.2 %; MONO ABS # 0.88 K/uL (0.11-0.59); NEUT % 68.5 %; NEUT ABS # 4.57 K/uL (1.4-6.5); PLATELET COUNT 195 K/uL (130-400); RED CELL DISTRIBUTION WIDTH CV 14.2 % (11.5-14.5); RED CELL DISTRIBUTION WIDTH SD 48.5 fL (36.4-46.3); WHITE BLOOD COUNT 6.66 K/uL (4.8-10.8)
[2018-02-14 06:50] LABS: CALCIUM 8.1 mg/dl (8.5-10.1); CREATININE 0.51 mg/dl (0.60-1.20); POTASSIUM 3.9 mmol/L (3.5-5.1)
[2018-02-14] MEDS: CEROVITE ADV FORMULA TAB PO SCH (07:58)
[2018-02-14] MEDS: APIXABAN 2.5 MG TAB PO SCH ×2 (07:58→20:05)
[2018-02-14] MEDS: PANTOprazole SOD 40 MG TAB PO SCH (07:58)
[2018-02-14] MEDS: DOCUSATE SODIUM 100 MG CAP PO SCH ×2 (07:58→20:05)
[2018-02-14] MEDS: DOCUSATE SODIUM/SENNA 50/8.6MG TAB PO SCH (07:58)
[2018-02-14] MEDS: METOPROLOL TARTRATE 25 MG TAB PO SCH ×2 (07:59→20:06)
[2018-02-14] MEDS: POLYETHYLENE (MIRALAX) 17 GM PACK PO SCH (07:59)
[2018-02-14] MEDS: CYANOCOBALAMIN 500 MCG TAB (VIT B-12) PO SCH (07:59)
[2018-02-14] MEDS: ATORVASTATIN 20 MG TAB PO SCH (07:59)
[2018-02-14] MEDS: CHOLECALCIFEROL 1000 INTER.UNIT TAB PO SCH (07:59)
[2018-02-14] MEDS: LISINOPRIL 20 MG TAB PO SCH (07:59)
[2018-02-14] MEDS: SODIUM CHLORIDE 0.9% 1000ML 1,000 ML IV SCH (08:00)
[2018-02-14] MEDS: ASPIRIN 81 MG ECTAB PO SCH (08:00)
--- NOTE | 2018-02-14 12:16 | PROGRESS NOTE ---
DATE: 02/14/2018 SUBJECTIVE: I am seeing Mrs. Johnson in followup of a protracted episode of loss of consciousness which I believe she was continued to be seated upright. She has not had any recurrent events. OBJECTIVE: GENERAL: On exam, she is awake and alert with normal speech and language. VITAL SIGNS: 36.8, 61, 18, 126/68, 98%. IMPRESSION AND PLAN: This patient has had a protracted syncopal episode. No seizure activity was noted. I think seizure is unlikely. The patient was unable to have an MRI initially, I think in part because she was confused. She is willing to retry MRI. For the most part, we are looking for evidence of a posterior circulation stroke, which could be accountable for an episode of loss of consciousness. I think this is unlikely. There is no evidence of orthostasis on testing. She should be monitored for dysrhythmia and bradycardia. I lean more in the direction that this was cardiovascular and that it did not resolve faster in part because by report she was not laid down. Await EEG. If the patient could otherwise be discharged, my index of the suspicion is low and she could have an outpatient EEG. ELLA
--- NOTE | 2018-02-14 13:43 | Progress Note ---
Subjective Date of Service: Feb 14, 2018. Subjective Pt evaluation today including: conversation w/ patient, physical exam, lab review, review of studies, review of inpatient medication list Saw/examined the patient in room 289 She is more awake and alert Still slightly confused, worse at night in the hospital as per nursing No other symptoms besides weakness at this time Problem List Medical Problems: (1) Abdominal pain Status: Acute (2) Acute electrocardiogram changes Status: Acute (3) Atrial fibrillation Status: Acute (4) SBO (small bowel obstruction) Status: Acute (5) UTI (urinary tract infection) Status: Acute Review of Systems Constitutional: + weakness, No fever, No chills Respiratory: No cough, No sputum, No wheezing, No shortness of breath, No dyspnea on exertion, No dyspnea at rest, No hemoptysis Cardiac: No chest pain, No edema, No palpitations Abdomen: No pain, No nausea, No vomiting, No diarrhea Female : No dysuria, No urinary frequency Medications Current Inpatient Medications Medications (Trade) Dose Ordered Sig/Brandy Route Start Time Stop Time Status Last Admin Dose Admin Acetaminophen (Tylenol Tab) 650 mg Q4H PRN PO 02/11/18 18:45 03/13/18 18:44 Ondansetron HCl (Zofran Inj) 4 mg Q6H PRN IV 02/11/18 18:45 03/13/18 18:44 Miscellaneous Information (Pharmacist Discharge Med Rec Consult) 1 ea UD PRN N/A 02/11/18 18:45 03/13/18 18:44 Apixaban (Eliquis Tab) 2.5 mg BID PO 02/11/18 21:00 02/15/18 07:00 02/14/18 07:58 2.5 MG Aspirin (Ecotrin Tab) 81 mg DAILY PO 02/12/18 09:00 03/14/18 08:59 02/14/18 08:00 81 MG Atorvastatin Calcium (Lipitor Tab) 20 mg DAILY PO 02/12/18 09:00 03/14/18 08:59 02/14/18 07:59 20 MG Cholecalciferol (Vitamin D Tab) 1,000 inter.unit DAILY PO 02/12/18 09:00 03/14/18 08:59 02/14/18 07:59 1,000 INTER.UNIT Cyanocobalamin (Vitamin B-12 Tab) 500 mcg DAILY PO 02/12/18 09:00 03/14/18 08:59 02/14/18 07:59 500 MCG Docusate Sodium (coLACE CAP) 100 mg BID PO 02/11/18 21:00 03/13/18 20:59 02/14/18 07:58 100 MG Folic Acid (Folvite Tab) 1 mg DAILY PO 02/12/18 09:00 03/14/18 08:59 02/14/18 07:59 1 MG Gabapentin (Neurontin Cap) 100 mg HS PO 02/11/18 21:00 03/13/18 20:59 02/13/18 20:22 100 MG Metoprolol Tartrate (Lopressor Tab) 12.5 mg BID PO 02/11/18 21:00 03/13/18 20:59 02/14/18 07:59 12.5 MG Multivitamins/ Minerals (Multivitamin W/ Minerals Tab) 1 tab DAILY PO 02/12/18 09:00 03/14/18 08:59 02/14/18 07:58 1 TAB Polyethylene (Miralax Powder Packet) 17 gm DAILY PO 02/12/18 09:00 03/14/18 08:59 02/14/18 07:59 17 GM Senna/Docusate Sodium (Senokot S Tab) 1 tab DAILY PO 02/12/18 09:00 03/14/18 08:59 02/14/18 07:58 1 TAB Pantoprazole Sodium (Protonix Tab) 40 mg QAM PO 02/12/18 09:00 03/14/18 08:59 02/14/18 07:58 40 MG Lisinopril (Zestril Tab) 20 mg DAILY PO 02/14/18 09:00 03/14/18 08:59 02/14/18 07:59 20 MG Cefuroxime Axetil (Ceftin Tab) 500 mg BID PO 02/14/18 21:00 02/19/18 20:59 Objective Vital Signs Date Time Temp Pulse Resp B/P (MAP) Pulse Ox O2 Delivery O2 Flow Rate FiO2 02/14/18 11:34 36.8 61 18 126/68 (87) 98 Room Air 02/14/18 07:18 36.4 77 18 177/82 (113) 100 Room Air 4/29/18 04:00 Room Air 02/14/18 03:16 36.5 66 18 130/74 (92) 93 Room Air 02/14/18 00:00 Room Air 02/13/18 23:30 36.3 71 16 138/70 (92) 92 Room Air 02/13/18 21:49 73 139/84 (102) 02/13/18 21:47 67 132/80 (97) 02/13/18 21:47 69 129/78 (95) 02/13/18 20:00 Room Air 02/13/18 19:16 36.7 101 18 115/67 (83) 97 Room Air 02/13/18 16:09 99 Room Air 02/13/18 15:02 36.9 70 18 155/89 (111) 98 Room Air Physical Exam General Appearance: no apparent distress Respiratory/Chest: lungs clear, normal breath sounds, no respiratory distress, no accessory muscle use Cardiovascular: regular rate, rhythm, no edema, no murmur Extremities: normal inspection, no pedal edema Neurologic/Psychiatric: no motor/sensory deficits, alert, normal mood/affect Laboratory Results Last 24 Hours Test 02/14/18 05:31 White Blood Count 6.66 K/uL Red Blood Count 4.00 M/uL Hemoglobin 12.1 g/dL Hematocrit 36.9 % Mean Corpuscular Volume 92.3 fL Mean Corpuscular Hemoglobin 30.3 pg Mean Corpuscular Hemoglobin Concent 32.8 g/dl Platelet Count 195 K/uL Mean Platelet Volume 9.7 fL Neutrophils (%) (Auto) 68.5 % Lymphocytes (%) (Auto) 15.8 % Monocytes (%) (Auto) 13.2 % Eosinophils (%) (Auto) 1.8 % Basophils (%) (Auto) 0.5 % Neutrophils # (Auto) 4.57 K/uL Lymphocytes # (Auto) 1.05 K/uL Monocytes # (Auto) 0.88 K/uL Eosinophils # (Auto) 0.12 K/uL Basophils # (Auto) 0.03 K/uL RDW Standard Deviation 48.5 fL RDW Coefficient of Variation 14.2 % Immature Granulocyte % (Auto) 0.2 % Immature Granulocyte # (Auto) 0.01 K/uL Sodium Level 139 mmol/L Potassium Level 3.9 mmol/L Chloride Level 111 mmol/L Carbon Dioxide Level 23 mmol/L Anion Gap 5.0 mmol/L Blood Urea Nitrogen 24 mg/dl Creatinine 0.51 mg/dl Est Creatinine Clear Calc Drug Dose 61.9 ml/min Estimated GFR () 102.3 Estimated GFR (Non- 88.3 BUN/Creatinine Ratio 46.1 Random Glucose 80 mg/dl Calcium Level 8.1 mg/dl Assessment and Plan This is an 82 year old female with a past medical history of paroxysmal atrial fibrillation on long-term anticoagulation, HTN, HLD, hx. of TIA/CVA - presents with syncope and loss of consciousness, altered mental status Metabolic Encephalopathy secondary to UTI 02/14 - continues to improve - will change Rocephin to Ceftin - PT/OT - discharge planning for AM - possibly home with home health vs. SNF 02/13 - improved clinically - culture - pansensitive E. coli - will continue Rocephin for one more day, then switch to Cefuroxime - continue IVFs for now - further testing as per neurology - canceled MRI; EEG pending 02/12 - UA dirty, urine culture - e. coli; sensitivities pending - currently on Rocephin, which we will continue - gentle IV hydration - appreciate neurology input, MRI and EEG to r/o stroke/seizures Paroxysmal A. Fib - continue Eliquis - continue b-sara - currently in A. fib with rate control HTN - d/c IV Vasotec - continue home meds DVT ppx - Eliquis FULL CODE
[2018-02-14] MEDS ORDERED: GADAVIST IV PRN (16:30)
--- NOTE | 2018-02-14 16:46 | DIAGNOSTIC IMAGING REPORT ---
MRI OF THE BRAIN COMBO CLINICAL HISTORY: Transient ischemic attack. Change in mental status. COMPARISON STUDY: CT of the brain dated 02/11/2018. TECHNIQUE: MRI of the brain was performed utilizing various T1 and T2-weighted sequences in the axial, sagittal, and coronal planes. Contrast-enhanced sequences were acquired following the administration of 5 cc of Gadavist. The examination is modestly degraded by motion artifact. FINDINGS: Brain parenchyma: There are age-related involutional changes noting moderate to advanced confluent subcortical and periventricular microangiopathic disease. There is no hemorrhage or mass effect. There is no restricted diffusion to suggest acute ischemia. No enhancing mass lesion is identified on the postcontrast images. Martel-white matter differentiation is preserved. No extra-axial fluid collection is seen. The cerebellar tonsils are normal in configuration. Ventricles, sulci, and cisterns: Prominent secondary to involutional change. Pituitary and sella: Unremarkable. Intracranial vasculature: Normal flow voids are maintained at the skull base. Orbits: The bony orbits are grossly intact. Orbital contents are normal in appearance. Sinuses and mastoids: Clear. Calvarium: Unremarkable. Cervical cord: Partially visualized cervical spinal cord is normal in morphology and signal intensity. IMPRESSION: No acute intracranial abnormality. Electronically signed by: Carlos Fernández M.D. 02/14/2018 4:45 PM Dictated Date/Time: 02/14/2018 4:41 PM
[2018-02-14] MEDS: CEFUROXIME AXETIL 500 MG TAB PO SCH (20:05)
[2018-02-14] MEDS: GABAPENTIN 100 MG CAP PO SCH (20:05)
[2018-02-15] VITALS (9 sets, daily range): BP systolic 92–170; BP diastolic 54–91; PULSE 57–80; TEMP 36.3–36.7; O2SAT 95–99
[2018-02-15] MEDS ORDERED: CLONIDINE HCL 0.1 MG TAB PO PRN (02:00)
[2018-02-15 06:15] LABS: HEMATOCRIT 35.5 % (37-47); HEMOGLOBIN 11.7 g/dL (12.0-16.0); MEAN CELL VOLUME 90.3 fL (80-100); MEAN CORPUSCULAR HEMOGLOBIN 29.8 pg (25-34); MEAN PLATELET VOLUME 9.6 fL (7.4-10.4); PLATELET COUNT 201 K/uL (130-400); RED CELL DISTRIBUTION WIDTH CV 13.8 % (11.5-14.5); RED CELL DISTRIBUTION WIDTH SD 46.4 fL (36.4-46.3); WHITE BLOOD COUNT 5.51 K/uL (4.8-10.8)
[2018-02-15 06:44] LABS: CREATININE 0.38 mg/dl (0.60-1.20); POTASSIUM 3.6 mmol/L (3.5-5.1)
[2018-02-15] MEDS: POLYETHYLENE (MIRALAX) 17 GM PACK PO SCH (09:00)
[2018-02-15] MEDS: ATORVASTATIN 20 MG TAB PO SCH (09:03)
[2018-02-15] MEDS: CEROVITE ADV FORMULA TAB PO SCH (09:03)
[2018-02-15] MEDS: PANTOprazole SOD 40 MG TAB PO SCH (09:04)
[2018-02-15] MEDS: DOCUSATE SODIUM 100 MG CAP PO SCH ×2 (09:04→19:59)
[2018-02-15] MEDS: ASPIRIN 81 MG ECTAB PO SCH (09:04)
[2018-02-15] MEDS: CEFUROXIME AXETIL 500 MG TAB PO SCH ×2 (09:04→19:59)
[2018-02-15] MEDS: CHOLECALCIFEROL 1000 INTER.UNIT TAB PO SCH (09:04)
[2018-02-15] MEDS: LISINOPRIL 20 MG TAB PO SCH (09:04)
[2018-02-15] MEDS: METOPROLOL TARTRATE 25 MG TAB PO SCH ×2 (09:04→20:00)
[2018-02-15] MEDS: DOCUSATE SODIUM/SENNA 50/8.6MG TAB PO SCH (09:04)
[2018-02-15] MEDS: CYANOCOBALAMIN 500 MCG TAB (VIT B-12) PO SCH (09:04)
--- NOTE | 2018-02-15 13:55 | ELECTROENCEPHALOGRAPH REPORT ---
FOR: Dr. Phillip and Angela Somers. CLINICAL DIAGNOSIS: Change in mental status. ELECTROENCEPHALOGRAM DIAGNOSIS: Essentially normal during wakefulness. DESCRIPTION OF TRACING: This EEG was done as a bedside recording. No photic stimulation or hyperventilation was performed. Drowsiness and light sleep are not recorded. Video analysis of patient's movement and behavior was obtained. Throughout most of the first part of the tracing, there is a high amplitude artifact overlying the entirety of the left hemisphere which then goes into the posterior regions and likely correlates with some head rotational movements recorded on video. Later this artifact disappears, the tracing becomes more symmetrical and there is clear bilaterally symmetrical alpha activities in the posterior head regions of up to 9-10 Hz of maximum frequency and 30 microvolts of maximum amplitude. Polymorphic slightly lower frequency and modest amplitude theta activity is seen centrally in a symmetrical fashion without any lateralizing properties and beta activity is seen bifrontally. There were episodic movements and muscle artifacts recorded both on EEG and on video analysis but nothing of potentially epileptogenic nature is noted and there is specifically no evidence for polyspike or spike wave bursts, focal sharp waves or focal spikes. INTERPRETATION: This EEG is essentially normal during wakefulness without evidence for focal or generalized encephalopathy and without evidence for potentially epileptogenic activity.
--- NOTE | 2018-02-15 14:54 | Neurology Progress Notes ---
Neurology Progress Note Date of Service Feb 15, 2018. La Liu is an 82 year old female with a PMH TIA, uterine prolapse, MTHRR mutation , afib on Eliquis who presents to the ER with altered mental status. Daughter reportedly provided the history. Her mother was outside working in her garden and sat down on the ledge and slumped over. She was unresponsive but breathing for about 10 minutes but no reported seizure like activity but was extremely confused when she woke. She was saying words that did not make sense but no slurred speech or facial droop but she states her arm got heavy. She has a history of TIAs with facial droop and left arm weakness. No recent illnesses. She was not a candidate for tPA due to being on Eliquis. An MRI was attempted but she was too agitated. Currently she is sitting up bedside and states she thinks she is back to baseline. denies CP, SOB, abdominal pain, one sided numbness, tingling weakness , N, V, vision changes. Objective Date Time Temp Pulse Resp B/P (MAP) Pulse Ox O2 Delivery O2 Flow Rate FiO2 02/15/18 12:00 Room Air 02/15/18 11:15 36.5 57 18 138/77 (97) 99 Room Air 02/15/18 09:00 66 144/66 (92) 02/15/18 08:59 Room Air 02/15/18 07:05 36.4 63 18 160/89 (112) 96 Room Air 02/15/18 05:00 148/75 (99) 02/15/18 04:00 Room Air 02/15/18 03:55 36.3 67 18 168/85 (112) 99 Room Air 159/91 (113) 170/89 (116) 02/15/18 00:00 Room Air 02/14/18 23:43 36.5 71 18 165/83 (110) 96 Room Air 167/83 (111) 179/89 (119) 02/14/18 20:00 Room Air 02/14/18 19:42 36.4 61 18 152/78 (102) 95 Room Air 155/79 (104) 168/72 (104) 02/14/18 16:09 99 Room Air 02/14/18 14:53 36.4 73 18 162/81 (108) 97 Room Air Last 24 Hours Test 02/15/18 05:47 White Blood Count 5.51 K/uL Red Blood Count 3.93 M/uL Hemoglobin 11.7 g/dL Hematocrit 35.5 % Mean Corpuscular Volume 90.3 fL Mean Corpuscular Hemoglobin 29.8 pg Mean Corpuscular Hemoglobin Concent 33.0 g/dl RDW Standard Deviation 46.4 fL RDW Coefficient of Variation 13.8 % Platelet Count 201 K/uL Mean Platelet Volume 9.6 fL Sodium Level 139 mmol/L Potassium Level 3.6 mmol/L Chloride Level 107 mmol/L Carbon Dioxide Level 27 mmol/L Anion Gap 4.0 mmol/L Blood Urea Nitrogen 15 mg/dl Creatinine 0.38 mg/dl Est Creatinine Clear Calc Drug Dose 83.1 ml/min Estimated GFR () 112.7 Estimated GFR (Non- 97.3 BUN/Creatinine Ratio 39.6 Random Glucose 92 mg/dl Calcium Level 8.0 mg/dl Thyroid Stimulating Hormone (TSH) 1.700 uIu/ml Imaging: MRI brain -No acute intracranial abnormality. EEG- : This EEG is essentially normal during wakefulness without evidence for focal or generalized encephalopathy and without evidence for potentially epileptogenic activity. Exam: Gen: alert NAD lungs normal breathing effort CV RRR hand lithopone charger, biceps triceps 5/5 bilaterally hip flex plantar flex ext 5/5 bilaterally oriented to self [facility], 2018 Current Inpatient Medications Medications (Trade) Dose Ordered Sig/Brandy Route Start Time Stop Time Status Last Admin Dose Admin Acetaminophen (Tylenol Tab) 650 mg Q4H PRN PO 02/11/18 18:45 03/13/18 18:44 Ondansetron HCl (Zofran Inj) 4 mg Q6H PRN IV 02/11/18 18:45 03/13/18 18:44 Miscellaneous Information (Pharmacist Discharge Med Rec Consult) 1 ea UD PRN N/A 02/11/18 18:45 03/13/18 18:44 Aspirin (Ecotrin Tab) 81 mg DAILY PO 02/12/18 09:00 03/14/18 08:59 02/15/18 09:04 81 MG Atorvastatin Calcium (Lipitor Tab) 20 mg DAILY PO 02/12/18 09:00 03/14/18 08:59 02/15/18 09:03 20 MG Cholecalciferol (Vitamin D Tab) 1,000 inter.unit DAILY PO 02/12/18 09:00 03/14/18 08:59 02/15/18 09:04 1,000 INTER.UNIT Cyanocobalamin (Vitamin B-12 Tab) 500 mcg DAILY PO 02/12/18 09:00 03/14/18 08:59 02/15/18 09:04 500 MCG Docusate Sodium (coLACE CAP) 100 mg BID PO 02/11/18 21:00 03/13/18 20:59 02/15/18 09:04 100 MG Folic Acid (Folvite Tab) 1 mg DAILY PO 02/12/18 09:00 03/14/18 08:59 02/15/18 09:04 1 MG Gabapentin (Neurontin Cap) 100 mg HS PO 02/11/18 21:00 03/13/18 20:59 02/14/18 20:05 100 MG Metoprolol Tartrate (Lopressor Tab) 12.5 mg BID PO 02/11/18 21:00 03/13/18 20:59 02/15/18 09:04 12.5 MG Multivitamins/ Minerals (Multivitamin W/ Minerals Tab) 1 tab DAILY PO 02/12/18 09:00 03/14/18 08:59 02/15/18 09:03 1 TAB Polyethylene (Miralax Powder Packet) 17 gm DAILY PO 02/12/18 09:00 03/14/18 08:59 02/14/18 07:59 17 GM Senna/Docusate Sodium (Senokot S Tab) 1 tab DAILY PO 02/12/18 09:00 03/14/18 08:59 02/15/18 09:04 1 TAB Pantoprazole Sodium (Protonix Tab) 40 mg QAM PO 02/12/18 09:00 03/14/18 08:59 02/15/18 09:04 40 MG Lisinopril (Zestril Tab) 20 mg DAILY PO 02/14/18 09:00 03/14/18 08:59 02/15/18 09:04 20 MG Cefuroxime Axetil (Ceftin Tab) 500 mg BID PO 02/14/18 21:00 02/19/18 20:59 02/15/18 09:04 500 MG Gadobutrol (Gadavist) 5 mmol UD PRN IV 02/14/18 16:30 02/18/18 16:29 Clonidine HCl (Catapres Tab) 0.1 mg Q4 PRN PO 02/15/18 02:00 03/17/18 01:59 Apixaban (Eliquis Tab) 2.5 mg BID PO 02/15/18 21:00 03/17/18 20:59 Impression 82 year old female PMH TIA with LOC, and confusion- +UTI Plan 1. CT head no acute findings 2. MRI microvascular disease and age related atrophy no acute findings. 3. EEG -possible seizure repeated no seizure foci 4. UTI receiving - cefriaxone- e coli 5. continue Eliquis and aspirin 6. PT/OT for discharge needs 7. orthostatic blood pressures no significant 8. may have been a combo of dehydration and UTI 9. ok from neurology perspective to discharge when medically stable. 10. driving per primary care discretion sign off for now no return needed for neurology after discharge. I have seen and discussed above patient with Dr Angela Phillip, neurology Suspect event cardiovascular. No evidence of sz or new stroke or TIA. MONIKA Phillip MD
--- NOTE | 2018-02-15 15:48 | Progress Note ---
Subjective Date of Service: Feb 15, 2018. Subjective Pt evaluation today including: conversation w/ patient, physical exam, lab review, review of studies, review of inpatient medication list Saw/examined the patient in room 289 She's doing well, +weakness persists ambulatory issues are a problem; she states she feels fine Problem List Medical Problems: (1) Abdominal pain Status: Acute (2) Acute electrocardiogram changes Status: Acute (3) Atrial fibrillation Status: Acute (4) SBO (small bowel obstruction) Status: Acute (5) UTI (urinary tract infection) Status: Acute Review of Systems Constitutional: No fever, No chills Respiratory: No cough, No sputum, No shortness of breath Cardiac: No chest pain Abdomen: No pain, No nausea, No vomiting, No diarrhea Female : No dysuria, No urinary frequency Neurologic: + vertigo, + balance problems Medications Current Inpatient Medications Medications (Trade) Dose Ordered Sig/Brandy Route Start Time Stop Time Status Last Admin Dose Admin Acetaminophen (Tylenol Tab) 650 mg Q4H PRN PO 02/11/18 18:45 03/13/18 18:44 Ondansetron HCl (Zofran Inj) 4 mg Q6H PRN IV 02/11/18 18:45 03/13/18 18:44 Miscellaneous Information (Pharmacist Discharge Med Rec Consult) 1 ea UD PRN N/A 02/11/18 18:45 03/13/18 18:44 Aspirin (Ecotrin Tab) 81 mg DAILY PO 02/12/18 09:00 03/14/18 08:59 02/15/18 09:04 81 MG Atorvastatin Calcium (Lipitor Tab) 20 mg DAILY PO 02/12/18 09:00 03/14/18 08:59 02/15/18 09:03 20 MG Cholecalciferol (Vitamin D Tab) 1,000 inter.unit DAILY PO 02/12/18 09:00 03/14/18 08:59 02/15/18 09:04 1,000 INTER.UNIT Cyanocobalamin (Vitamin B-12 Tab) 500 mcg DAILY PO 02/12/18 09:00 03/14/18 08:59 02/15/18 09:04 500 MCG Docusate Sodium (coLACE CAP) 100 mg BID PO 02/11/18 21:00 03/13/18 20:59 02/15/18 09:04 100 MG Folic Acid (Folvite Tab) 1 mg DAILY PO 02/12/18 09:00 03/14/18 08:59 02/15/18 09:04 1 MG Gabapentin (Neurontin Cap) 100 mg HS PO 02/11/18 21:00 03/13/18 20:59 02/14/18 20:05 100 MG Metoprolol Tartrate (Lopressor Tab) 12.5 mg BID PO 02/11/18 21:00 03/13/18 20:59 02/15/18 09:04 12.5 MG Multivitamins/ Minerals (Multivitamin W/ Minerals Tab) 1 tab DAILY PO 02/12/18 09:00 03/14/18 08:59 02/15/18 09:03 1 TAB Polyethylene (Miralax Powder Packet) 17 gm DAILY PO 02/12/18 09:00 03/14/18 08:59 02/14/18 07:59 17 GM Senna/Docusate Sodium (Senokot S Tab) 1 tab DAILY PO 02/12/18 09:00 03/14/18 08:59 02/15/18 09:04 1 TAB Pantoprazole Sodium (Protonix Tab) 40 mg QAM PO 02/12/18 09:00 03/14/18 08:59 02/15/18 09:04 40 MG Lisinopril (Zestril Tab) 20 mg DAILY PO 02/14/18 09:00 03/14/18 08:59 02/15/18 09:04 20 MG Cefuroxime Axetil (Ceftin Tab) 500 mg BID PO 02/14/18 21:00 02/19/18 20:59 02/15/18 09:04 500 MG Gadobutrol (Gadavist) 5 mmol UD PRN IV 02/14/18 16:30 02/18/18 16:29 Clonidine HCl (Catapres Tab) 0.1 mg Q4 PRN PO 02/15/18 02:00 03/17/18 01:59 Apixaban (Eliquis Tab) 2.5 mg BID PO 02/15/18 21:00 03/17/18 20:59 Objective Vital Signs Date Time Temp Pulse Resp B/P (MAP) Pulse Ox O2 Delivery O2 Flow Rate FiO2 02/15/18 15:40 36.7 80 20 125/69 (87) 95 4/30/18 12:00 Room Air 02/15/18 11:15 36.5 57 18 138/77 (97) 99 Room Air 02/15/18 09:00 66 144/66 (92) 02/15/18 08:59 Room Air 02/15/18 07:05 36.4 63 18 160/89 (112) 96 Room Air 02/15/18 05:00 148/75 (99) 02/15/18 04:00 Room Air 02/15/18 03:55 36.3 67 18 168/85 (112) 99 Room Air 159/91 (113) 170/89 (116) 02/15/18 00:00 Room Air 02/14/18 23:43 36.5 71 18 165/83 (110) 96 Room Air 167/83 (111) 179/89 (119) 02/14/18 20:00 Room Air 02/14/18 19:42 36.4 61 18 152/78 (102) 95 Room Air 155/79 (104) 168/72 (104) 02/14/18 16:09 99 Room Air Physical Exam General Appearance: no apparent distress, + pertinent finding (elderly, generalized weakness) Respiratory/Chest: lungs clear, normal breath sounds, no respiratory distress, no accessory muscle use Cardiovascular: regular rate, rhythm, no edema, no murmur Neurologic/Psychiatric: no motor/sensory deficits, alert, normal mood/affect Laboratory Results Last 24 Hours Test 02/15/18 05:47 White Blood Count 5.51 K/uL Red Blood Count 3.93 M/uL Hemoglobin 11.7 g/dL Hematocrit 35.5 % Mean Corpuscular Volume 90.3 fL Mean Corpuscular Hemoglobin 29.8 pg Mean Corpuscular Hemoglobin Concent 33.0 g/dl RDW Standard Deviation 46.4 fL RDW Coefficient of Variation 13.8 % Platelet Count 201 K/uL Mean Platelet Volume 9.6 fL Sodium Level 139 mmol/L Potassium Level 3.6 mmol/L Chloride Level 107 mmol/L Carbon Dioxide Level 27 mmol/L Anion Gap 4.0 mmol/L Blood Urea Nitrogen 15 mg/dl Creatinine 0.38 mg/dl Est Creatinine Clear Calc Drug Dose 83.1 ml/min Estimated GFR () 112.7 Estimated GFR (Non- 97.3 BUN/Creatinine Ratio 39.6 Random Glucose 92 mg/dl Calcium Level 8.0 mg/dl Thyroid Stimulating Hormone (TSH) 1.700 uIu/ml Assessment and Plan This is an 82 year old female with a past medical history of paroxysmal atrial fibrillation on long-term anticoagulation, HTN, HLD, hx. of TIA/CVA - presents with syncope and loss of consciousness, altered mental status Metabolic Encephalopathy secondary to UTI 02/15 - patient is oriented x3, awake/alert - +weakness persists - plan for discharge to rehab 02/14 - continues to improve - will change Rocephin to Ceftin - PT/OT - discharge planning for AM - possibly home with home health vs. SNF 02/13 - improved clinically - culture - pansensitive E. coli - will continue Rocephin for one more day, then switch to Cefuroxime - continue IVFs for now - further testing as per neurology - canceled MRI; EEG pending 02/12 - UA dirty, urine culture - e. coli; sensitivities pending - currently on Rocephin, which we will continue - gentle IV hydration - appreciate neurology input, MRI and EEG to r/o stroke/seizures Paroxysmal A. Fib - continue Eliquis - continue b-sara - currently in A. fib with rate control HTN - d/c IV Vasotec - continue home meds DVT ppx - Eliquis FULL CODE
[2018-02-15] MEDS: APIXABAN 2.5 MG TAB PO SCH (19:58)
[2018-02-15] MEDS: GABAPENTIN 100 MG CAP PO SCH (19:58)
[2018-02-16] VITALS (9 sets, daily range): BP systolic 89–166; BP diastolic 52–82; PULSE 70–84; TEMP 36.2–36.8; O2SAT 94–97
[2018-02-16] MEDS: METOPROLOL TARTRATE 25 MG TAB PO SCH ×2 (08:17→20:45)
[2018-02-16] MEDS: LISINOPRIL 20 MG TAB PO SCH (08:17)
[2018-02-16] MEDS: DOCUSATE SODIUM 100 MG CAP PO SCH ×2 (08:17→20:35)
[2018-02-16] MEDS: ASPIRIN 81 MG ECTAB PO SCH (08:17)
[2018-02-16] MEDS: DOCUSATE SODIUM/SENNA 50/8.6MG TAB PO SCH (08:17)
[2018-02-16] MEDS: CEROVITE ADV FORMULA TAB PO SCH (08:17)
[2018-02-16] MEDS: PANTOprazole SOD 40 MG TAB PO SCH (08:18)
[2018-02-16] MEDS: CYANOCOBALAMIN 500 MCG TAB (VIT B-12) PO SCH (08:18)
[2018-02-16] MEDS: CHOLECALCIFEROL 1000 INTER.UNIT TAB PO SCH (08:18)
[2018-02-16] MEDS: ATORVASTATIN 20 MG TAB PO SCH (08:18)
[2018-02-16] MEDS: POLYETHYLENE (MIRALAX) 17 GM PACK PO SCH (08:19)
[2018-02-16] MEDS: CEFUROXIME AXETIL 500 MG TAB PO SCH ×2 (08:19→20:33)
[2018-02-16] MEDS: APIXABAN 2.5 MG TAB PO SCH ×2 (08:19→20:35)
--- NOTE | 2018-02-16 17:42 | Progress Note ---
Medicine Progress Note Date & Time of Visit: February 16, 2018 at 17:36. Subjective 82-year-old female with paroxysmal atrial fibrillation on Coumadin, history of CVA presented with syncope and altered mental status while working out in her yard. She was evaluated by neurology and is medically stable for discharge at this time. She is awaiting transfer to rehab facility and this is pending her insurance authorization. She currently has no complaints and is doing well on her antibiotic for her UTI. She is eating without issue. We discussed her disc taste in her kyphosis and options for this including occasional caregiver and physical therapy. She will discuss further with the physical therapist at the rehab center. Objective Last 8 Hrs Date Time Temp Pulse Resp B/P (MAP) Pulse Ox O2 Delivery O2 Flow Rate FiO2 02/16/18 16:00 95 Room Air 02/16/18 15:53 36.8 78 20 120/70 (87) 97 02/16/18 12:05 Room Air 02/16/18 11:27 36.4 78 16 95/61 (72) 95 Physical Exam: GEN: WNWD, in no acute distress, alert and appropriate HEENT: NC/AT, normal sclerae CARDIO: reg rate, irreg rhythm, no m/g/r LUNGS: CTA bilaterally, no crackles, rales or wheezes, good diaphragmatic excursion ABD: soft, non-tender, non-distended, no rebound or guarding, +BS EXTREMITY: no LE swelling or edema, extremities are warm and well-perfused NEURO: CN 2-12 grossly intact, no gross focal deficits MUSC: 5/5 strength throughout, no focal deficits. Exam was limited as patient was laying supine the entire time. SKIN: warm and dry Laboratory Results: 02/15/18 05:47 02/15/18 05:47 Test 02/11/18 16:28 02/11/18 16:35 02/11/18 16:37 02/11/18 17:05 Bedside Glucose 91 mg/dl (70-90) Prothrombin Time 10.5 SECONDS (9.0-12.0) Prothromb Time International Ratio 1.0 (0.9-1.1) Activated Partial Thromboplast Time 24.7 SECONDS (21.0-31.0) Partial Thromboplastin Ratio 1.0 Venous Blood pH 7.40 (7.36-7.41) Venous Blood Partial Pressure CO2 47 mmHg (38.0-50.0) Venous Blood Partial Pressure O2 34 mmHg Venous Blood HCO3 28 mmol/L Venous Blood Oxygen Saturation 62.3 % Venous Blood Base Excess 2.6 mEq/L Magnesium Level 1.9 mg/dl (1.8-2.4) Total Creatine Kinase 102 U/L (26-192) Creatine Kinase MB 4.9 ng/ml (0.5-3.6) Creatine Kinase MB Ratio 4.8 (0-3.0) Troponin I < 0.015 ng/ml (0-0.045) Bedside Hemoglobin 12.2 g/dl (12.0-16.0) Bedside Hematocrit 36 % (37-47) Bedside Sodium 140 mEq/L (135-144) Bedside Potassium 4.0 mEq/L (3.3-5.0) Bedside Chloride 103 mEq/L (101-112) Bedside Total CO2 26 mEq/l (24-31) Bedside Blood Urea Nitrogen 32 mg/dl (7-18) Bedside Creatinine 0.8 mg/dl (0.6-1.3) Bedside Glucose (other) mg/dl (70-99) Bedside Ionized Calcium (Kamran) 1.20 mmol/l (1.12-1.32) Urine Color YELLOW Urine Appearance CLEAR (CLEAR) Urine pH 6.5 (4.5-7.5) Urine Specific [place] 1.022 (1.000-1.030) Urine Protein NEG (NEG) Urine Glucose (UA) NEG (NEG) Urine Ketones TRACE (NEG) Urine Occult Blood 1+ (NEG) Urine Nitrite POS (NEG) Urine Bilirubin NEG (NEG) Urine Urobilinogen NEG (NEG) Urine Leukocyte Esterase TRACE (NEG) Urine WBC (Auto) 1-5 /hpf (0-5) Urine RBC (Auto) 0-4 /hpf (0-4) Urine Hyaline Casts (Auto) 5-10 /lpf (0-5) Urine Epithelial Cells (Auto) 10-20 /lpf (0-5) Urine Bacteria (Auto) 4+ (NEG) Test 02/11/18 17:52 02/14/18 05:31 02/15/18 05:47 Bedside Lactic Acid Venous 1.77 mmol/L (0.90-1.70) Immature Granulocyte % (Auto) 0.2 % White Blood Count 6.66 K/uL (4.8-10.8) Red Blood Count 4.00 M/uL (4.2-5.4) 3.93 M/uL (4.2-5.4) Hemoglobin 12.1 g/dL (12.0-16.0) Hematocrit 36.9 % (37-47) Mean Corpuscular Volume 92.3 fL (80-100) 90.3 fL (80-100) Mean Corpuscular Hemoglobin 30.3 pg (25-34) 29.8 pg (25-34) Mean Corpuscular Hemoglobin Concent 32.8 g/dl (32-36) 33.0 g/dl (32-36) Platelet Count 195 K/uL (130-400) Mean Platelet Volume 9.7 fL (7.4-10.4) 9.6 fL (7.4-10.4) Neutrophils (%) (Auto) 68.5 % Lymphocytes (%) (Auto) 15.8 % Monocytes (%) (Auto) 13.2 % Eosinophils (%) (Auto) 1.8 % Basophils (%) (Auto) 0.5 % Neutrophils # (Auto) 4.57 K/uL (1.4-6.5) Lymphocytes # (Auto) 1.05 K/uL (1.2-3.4) Monocytes # (Auto) 0.88 K/uL (0.11-0.59) Eosinophils # (Auto) 0.12 K/uL (0-0.5) Basophils # (Auto) 0.03 K/uL (0-0.2) Immature Granulocyte # (Auto) 0.01 K/uL (0.00-0.02) RDW Standard Deviation 46.4 fL (36.4-46.3) RDW Coefficient of Variation 13.8 % (11.5-14.5) Anion Gap 4.0 mmol/L (3-11) Est Creatinine Clear Calc Drug Dose 83.1 ml/min Estimated GFR () 112.7 Estimated GFR (Non- 97.3 BUN/Creatinine Ratio 39.6 (10-20) Calcium Level 8.0 mg/dl (8.5-10.1) Thyroid Stimulating Hormone (TSH) 1.700 uIu/ml (0.300-4.500) Date/Time Source Procedure Growth Status 02/11/18 17:05 Urine,Catheterized Urine Culture - Final Escherichia Coli Complete Assessment & Plan 82-year-old female with paroxysmal atrial fibrillation on Coumadin, history of CVA presented with syncope and altered mental status while working out in her yard. She was evaluated by neurology and is medically stable for discharge at this time. She is awaiting transfer to rehab facility and this is pending her insurance authorization. She currently has no complaints and is doing well on her antibiotic for her UTI. She is eating without issue. We discussed her disc taste in her kyphosis and options for this including occasional caregiver and physical therapy. She will discuss further with the physical therapist at the rehab center. 1. Metabolic encephalopathy secondary to UTI-resolved, continue cefuroxime for UTI treatment. 2. Ambulatory dysfunction-likely secondary to age and deconditioning. Patient is slated for rehab post hospital discharge. Awaiting insurance authorization. 3. Paroxysmal atrial fibrillation-continue apixaban and Lopressor 12.5 p.o. twice daily. 4. Hypertension-controlled, continue lisinopril 20 mg daily. DVT prophylaxis-apixaban Full code Disposition-to rehab once authorization has been established through insurance. Appreciate case management assistance with this. Loli Summers DO [facility] hospitalist Current Inpatient Medications: Current Inpatient Medications Medications (Trade) Dose Ordered Sig/Brandy Route Start Time Stop Time Status Last Admin Dose Admin Acetaminophen (Tylenol Tab) 650 mg Q4H PRN PO 02/11/18 18:45 03/13/18 18:44 Ondansetron HCl (Zofran Inj) 4 mg Q6H PRN IV 02/11/18 18:45 03/13/18 18:44 Aspirin (Ecotrin Tab) 81 mg DAILY PO 02/12/18 09:00 03/14/18 08:59 02/16/18 08:17 81 MG Atorvastatin Calcium (Lipitor Tab) 20 mg DAILY PO 02/12/18 09:00 03/14/18 08:59 02/16/18 08:18 20 MG Cholecalciferol (Vitamin D Tab) 1,000 inter.unit DAILY PO 02/12/18 09:00 03/14/18 08:59 02/16/18 08:18 1,000 INTER.UNIT Cyanocobalamin (Vitamin B-12 Tab) 500 mcg DAILY PO 02/12/18 09:00 03/14/18 08:59 02/16/18 08:18 500 MCG Docusate Sodium (coLACE CAP) 100 mg BID PO 02/11/18 21:00 03/13/18 20:59 02/16/18 08:17 100 MG Folic Acid (Folvite Tab) 1 mg DAILY PO 02/12/18 09:00 03/14/18 08:59 02/16/18 08:18 1 MG Gabapentin (Neurontin Cap) 100 mg HS PO 02/11/18 21:00 03/13/18 20:59 02/15/18 19:58 100 MG Metoprolol Tartrate (Lopressor Tab) 12.5 mg BID PO 02/11/18 21:00 03/13/18 20:59 02/16/18 08:17 12.5 MG Multivitamins/ Minerals (Multivitamin W/ Minerals Tab) 1 tab DAILY PO 02/12/18 09:00 03/14/18 08:59 02/16/18 08:17 1 TAB Polyethylene (Miralax Powder Packet) 17 gm DAILY PO 02/12/18 09:00 03/14/18 08:59 02/14/18 07:59 17 GM Senna/Docusate Sodium (Senokot S Tab) 1 tab DAILY PO 02/12/18 09:00 03/14/18 08:59 02/16/18 08:17 1 TAB Pantoprazole Sodium (Protonix Tab) 40 mg QAM PO 02/12/18 09:00 03/14/18 08:59 02/16/18 08:18 40 MG Lisinopril (Zestril Tab) 20 mg DAILY PO 02/14/18 09:00 03/14/18 08:59 02/16/18 08:17 20 MG Cefuroxime Axetil (Ceftin Tab) 500 mg BID PO 02/14/18 21:00 02/19/18 20:59 02/16/18 08:19 500 MG Gadobutrol (Gadavist) 5 mmol UD PRN IV 02/14/18 16:30 02/18/18 16:29 Clonidine HCl (Catapres Tab) 0.1 mg Q4 PRN PO 02/15/18 02:00 03/17/18 01:59 Apixaban (Eliquis Tab) 2.5 mg BID PO 02/15/18 21:00 03/17/18 20:59 02/16/18 08:19 2.5 MG
[2018-02-16] MEDS: GABAPENTIN 100 MG CAP PO SCH (20:36)
[2018-02-17 03:34] VITALS: BP 135/79; PULSE 70; TEMP 36.5; O2SAT 97
[2018-02-17 08:04] VITALS: BP 118/74; PULSE 73; TEMP 36.7; O2SAT 97
[2018-02-17] MEDS: METOPROLOL TARTRATE 25 MG TAB PO SCH (08:34)
[2018-02-17] MEDS: DOCUSATE SODIUM/SENNA 50/8.6MG TAB PO SCH (08:34)
[2018-02-17] MEDS: CEROVITE ADV FORMULA TAB PO SCH (08:34)
[2018-02-17] MEDS: CHOLECALCIFEROL 1000 INTER.UNIT TAB PO SCH (08:34)
[2018-02-17] MEDS: LISINOPRIL 20 MG TAB PO SCH (08:34)
[2018-02-17] MEDS: PANTOprazole SOD 40 MG TAB PO SCH (08:34)
[2018-02-17] MEDS: APIXABAN 2.5 MG TAB PO SCH (08:35)
[2018-02-17] MEDS: CYANOCOBALAMIN 500 MCG TAB (VIT B-12) PO SCH (08:35)
[2018-02-17] MEDS: ASPIRIN 81 MG ECTAB PO SCH (08:35)
[2018-02-17] MEDS: DOCUSATE SODIUM 100 MG CAP PO SCH (08:35)
[2018-02-17] MEDS: ATORVASTATIN 20 MG TAB PO SCH (08:35)
[2018-02-17] MEDS: CEFUROXIME AXETIL 500 MG TAB PO SCH (08:35)
[2018-02-17] MEDS: POLYETHYLENE (MIRALAX) 17 GM PACK PO SCH (08:35)
[2018-02-17 12:03] VITALS: BP 151/80; PULSE 63; TEMP 36.5; O2SAT 96
[2018-02-17 15:20] VITALS: BP 134/74; PULSE 74; TEMP 36.9; O2SAT 91
[2018-02-17] MEDS ORDERED: CEFU1TAB35 PO (16:51)
--- NOTE | 2018-02-17 16:55 | Discharge Instructions ---
Discharge Instructions Date of Service February 17, 2018. Admission Reason for Admission: Altered Mental Status Discharge Discharge Diagnosis / Problem: Syncope, UTI, Metabolic encephalopathy-resolved. Discharge Goals Goal(s): Decrease discomfort, Increase independence, Prevent Disease Progression Activity Recommendations Activity Limitations: per Instructions/Follow-up section . Instructions / Follow-Up Instructions / Follow-Up Please take all medications as prescribed on discharge list. You have two more days to finish on your antibiotic, which was electronically sent to your pharmacy on file. You have an appointment with Dr. Clemente Plascencia on 02/22@ 10:45am for follow- up from this hospitalization. It was a pleasure taking care of you! Call if you have any questions or problems. You can reach a [facility] hospitalist on duty at [facility] 24 hours a day by calling [phone]. Take care of yourself. Loli Summers DO [facility] Hospitalist Current Hospital Diet Patient's current hospital diet: Regular Diet Discharge Diet Recommended Diet: AHA Diet (Heart Healthy) Procedures Procedures Performed: None. Pending Studies Studies pending at discharge: no Medical Emergencies . Who to Call and When: Medical Emergencies: If at any time you feel your situation is an emergency, please call 911 immediately. . Non-Emergent Contact Non-Emergency issues call your: Primary Care Provider . . "Provider Documentation" section prepared by Loli Summers. .
--- NOTE | 2018-02-17 16:58 | Discharge Summary ---
Discharge Summary Date of Service February 17, 2018. Discharge Summary Admission Date: Feb 11, 2018 at 18:33 Discharge Date: February 17, 2018 Discharge Disposition: Home with services Principal Diagnosis: Syncope UTI Metabolic encephalopathy-resolved Procedures: EEG: INTERPRETATION: This EEG is essentially normal during wakefulness without evidence for focal or generalized encephalopathy and without evidence for potentially epileptogenic activity. Vaccinations: None. Consultations: Neurology-Dr. Angela Phillip Pending Studies/Follow-Up: see instructions below. Medication Reconciliation New Medications: Cefuroxime Axetil (Cefuroxime Axetil) 500 Mg Tab 500 MG PO BID for 2 Days, #4 TAB Continued Medications: Apixaban (Eliquis) 2.5 Mg Tab 2.5 MG PO Q12H for 30 Days, #60 TAB Aspirin (Aspirin Ec) 81 Mg Tab 81 MG PO DAILY Atorvastatin (Lipitor) 20 Mg Tab 20 MG PO DAILY, TAB Cholecalciferol (Vitamin D) 1,000 Unit Tab 1000 UNITS PO DAILY Cyanocobalamin (Vitamin B-12) 500 Mcg Tab 1 TAB PO DAILY Docusate Sodium (Colace) 100 Mg Cap 100 MG PO BID Folic Acid (Folvite) 1 Mg Tab 1 MG PO DAILY Gabapentin (Gabapentin) 100 Mg Cap 100 MG PO HS for 30 Days, #30 CAP 1 Refill Lisinopril (Lisinopril) 10 Mg Tab 10 MG PO DAILY Metoprolol Tartrate (Lopressor) (Lopressor) 25 Mg Tab 12.5 MG PO BID, TAB Multiple Vitamins W/ Minerals (Centrum Silver 50+Women) 1 Tab Tab 1 TAB PO DAILY Omeprazole (Prilosec) 20 Mg Cap 20 MG PO DAILY Polyethylene Glycol 3350 (Miralax) 1 Pow Pow 17 GM PO DAILY Senna/Docusate Sod (Senokot S) 1 Tab Tab 1 TAB PO DAILY, TAB Admission Information HPI (per Admitting provider): 82-year-old female who presents to the ER with altered mental status. History is currently unobtainable from the patient due to her mental state. Daughter is the bedside who provides the history. She reports that the patient was outside working in her garden today. The daughter's (patient's son-in- law), was with the patient at the time. The patient had sat down on the ledge and slumped over. She was unresponsive but breathing for about 10 minutes. No seizure-like activity. When she came to, she was extremely confused. She was saying words that did not make sense. No slurred speech or facial droop was noted. At one point in time, patient reported left arm heaviness. Patient has history of TIAs with facial droop and left arm weakness. Patient's daughter reports that she has been doing well recently. No other reported illnesses. In the ED, stroke alert was called. Patient was not deemed a TPA candidate since she is anticoagulated on Eliquis. Patient's mental status started to improve however at the time my exam patient is confused again. UA suggest UTI. Labs are unremarkable. She is hemodynamically stable. She was treated with IVF, IV ceftriaxone, and 1 dose of IV Ativan. Physical Exam (per Admitting): General Appearance: WD/WN, no apparent distress, + pertinent finding ( Patient very restless in bed, attempting to get out of bed and pulling at gown and wires) Head: normocephalic, atraumatic Eyes: normal inspection, EOMI, sclerae normal ENT: hearing grossly normal, + pertinent finding (Mucous membranes moist) Neck: supple, no JVD, trachea midline Respiratory/Chest: lungs clear, normal breath sounds, no respiratory distress Cardiovascular: regular rate, rhythm, no edema, normal peripheral pulses Abdomen/GI: normal bowel sounds, non tender, soft, no organomegaly Extremities/Musculoskelatal: normal inspection, no calf tenderness, normal capillary refill Neurologic/Psych: alert, + pertinent finding (Patient moving all 4 extremities in bed, very restless and pulling at gown and wires, responds when name is called however does not follow commands or answer questions) Skin: normal color, warm/dry Hospital Course 82-year-old female with paroxysmal atrial fibrillation on Coumadin, history of CVA presented with syncope and altered mental status while working out in her yard. She was evaluated by neurology and is medically stable for discharge at this time. She is awaiting transfer to rehab facility and this is pending her insurance authorization. She currently has no complaints and is doing well on her antibiotic for her UTI. She is eating without issue. We discussed her disc taste in her kyphosis and options for this including care mgr and physical therapy. She will discuss further with the physical therapist at the rehab center. 1. Metabolic encephalopathy secondary to UTI-resolved, continue cefuroxime for UTI treatment. 2. Ambulatory dysfunction-likely secondary to age and deconditioning. Patient is slated for rehab post hospital discharge. Awaiting insurance authorization. 3. Paroxysmal atrial fibrillation-continue apixaban and Lopressor 12.5 p.o. twice daily. 4. Hypertension-controlled, continue lisinopril 20 mg daily. DVT prophylaxis-apixaban Full code Disposition-to rehab once authorization has been established through insurance. Appreciate case management assistance with this. DO Maribel Shannon tashi Total time spent on discharge = 60 minutes This includes examination of the patient, discharge planning, medication reconciliation, and communication with other providers. [place] [address] Discharge Medical Patient Name: Alexa Johnson Unit Number: [id number] Date of : 1935 Patient Status: Admitted Inpatient Attending Doctor: Loli Summers DO DI: Medical v5 Discharge Instructions Date of Service February 17, 2018. Admission Reason for Admission: Altered Mental Status Discharge Discharge Diagnosis / Problem: Syncope, UTI, Metabolic encephalopathy-resolved. Discharge Goals Goal(s): Decrease discomfort, Increase independence, Prevent Disease Progression Activity Recommendations Activity Limitations: per Instructions/Follow-up section . Instructions / Follow-Up Instructions / Follow-Up Please take all medications as prescribed on discharge list. You have two more days to finish on your antibiotic, which was electronically sent to your pharmacy on file. You have an appointment with Dr. Clemente Plascencia on 02/22@ 10:45am for follow- up from this hospitalization. It was a pleasure taking care of you! Call if you have any questions or problems. [facility] 24 hours a day by calling [phone]. Take care of yourself. DO Or[facility]San [facility] Center[facility] Current Hospital Diet Patient's current hospital diet: Regular Diet Discharge Diet Recommended Diet: AHA Diet (Heart Healthy) Procedures Procedures Performed: None. Pending Studies Studies pending at discharge: no Medical Emergencies . Who to Call and When: Medical Emergencies: If at any time you feel your situation is an emergency, please call [phone] immediately. . Non-Emergent Contact Non-Emergency issues call your: Primary Care Provider . . "Provider Documentation" section prepared by Loli Summers. . Additional Copies To Neo Plascencia MD
[2018-02-17 17:35] VITALS: BP 134/74; PULSE 74; TEMP 36.9; O2SAT 91
== END 2018-02-17 18:55 | disposition home health service (06) | DRG 689 ==
LOC: C.EDB 16:16 → C.MED 18:33 → EDBEDREQ 18:47 → ENRESERV 18:57
PROVIDERS: ADMIT Internal Medicine; ATTEND Hospitalist
DX: N39.0 Urinary tract infection, site not specified (principal); G93.41 Metabolic encephalopathy; I48.0 Paroxysmal atrial fibrillation; I10 Essential (primary) hypertension; K21.9 Gastro-esophageal reflux disease without esophagitis; Z86.73 Personal history of transient ischemic attack (TIA), and cerebral infarction without residual deficits; Z82.49 Family history of ischemic heart disease and other diseases of the circulatory system; Z87.891 Personal history of nicotine dependence; Z82.3 Family history of stroke; Z86.718 Personal history of other venous thrombosis and embolism; Z79.82 Long term (current) use of aspirin; Z85.3 Personal history of malignant neoplasm of breast

== ENCOUNTER → 2018-03-02 | Outpatient (CLI) | payer BC ==
[~2018-03-02] MED LIST changes: +ATOR-22 PO; -BIMA0.01 OP; +CEFU1TAB35 PO; +LISI-461 PO; -LPR25 PO; -LPT20 PO; +METO25TA56 PO; +MULT-1092 PO; +OMEP20CA9 PO; +SENN-65 PO
--- NOTE | 2018-03-02 15:05 | MAMMOGRAPHY REPORT ---
BILATERAL DIGITAL SCREENING MAMMOGRAM TOMOSYNTHESIS WITH CAD: 03/02/2018 CLINICAL HISTORY: Asymptomatic. Personal history of breast cancer. TECHNIQUE: Breast tomosynthesis in addition to standard 2D mammography was performed. Current study was also evaluated with a Computer Aided Detection (CAD) system. COMPARISON: Comparison is made to exams dated: 02/25/2017 mammogram, 02/28/2016 ultrasound, 02/28/2016 mammogram, 02/25/2016 mammogram, 02/21/2015 mammogram, and 02/20/2014 mammogram - [facility]. BREAST COMPOSITION: The tissue of both breasts is heterogeneously dense, which may obscure small mas ses. FINDINGS: The examination is markedly suboptimal due to inability the patient to tolerate adequate po sitioning. Within this limitation, there are stable postsurgical/posttreatment changes in the right breast, with persistent diffuse right breast skin thickening. Mild to moderate vascular calcificatio n in the right breast. A few scattered benign-appearing coarse calcifications bilaterally. No obvio us new mass, architectural distortion or cluster of microcalcifications is seen. IMPRESSION: ACR BI-RADS CATEGORY 1: NEGATIVE Markedly suboptimal exam due to inability of the patient to tolerate adequate positioning. Within th is limitation, there is no mammographic evidence of malignancy. A 1 year screening mammogram is recom mended. The patient will receive written notification of the results. Approximately 10% of breast cancers are not detected with mammography. A negative mammographic report should not delay biopsy if a clinically suggestive mass is present. Ayala Arce M.D. ay/:03/02/2018 08:22:48 Non Destructive Evaluation Technician: Tsering Garg M, [facility] letter sent: Normal 1/2 BI-RADS Code: ACR BI-RADS Category 1: Negative
== END | disposition home or self-care (01) ==
LOC: C.MAMM 07:30
PROVIDERS: ATTEND Internal Medicine
DX: Z12.31 Encounter for screening mammogram for malignant neoplasm of breast (principal); Z85.3 Personal history of malignant neoplasm of breast

== ENCOUNTER → 2018-05-04 | Day surgery (SDC) | payer BC ==
[2018-03-29 12:07] VITALS: Ht 149.9 cm; Wt 47.7 kg
[~2018-05-04] VITALS: Ht 149.9 cm; Wt 47.7 kg
[~2018-05-04] MED LIST changes: +APIX1TAB PO; -CEFU1TAB35 PO; +CYAN1CAP3 PO; +CYCLOPENTOLATE HCL 1% OP SOLN PER DROP CHARGE OPL SCH; -ELQ25 PO; +GABA-112 PO; +GATIFLOXACIN OP SOLN PER DROP CHARGE OPL SCH; +KETOROLAC 0.5% OP SOLN PER DROP CHARGE OPL SCH; +LACTATED RINGER'S 1000ML 500 ML IV SCH; -MULT-1092 PO; +NITR100C43 PO; -NRN100 PO; +PHENYLEPHRINE HCL 10% OP SOLN PER DROP CHARGE OPL SCH; +PHENYLEPHRINE HCL 2.5% OP SOLN PER DROP CHARGE OPL SCH; +PROPARACAINE 0.5% OP SOLN PER DROP CHARGE OPL SCH; -SENN-65 PO; +TROPICAMIDE 1% OP SOLN PER DROP CHARGE OPL SCH; -VTMB12 PO
== END | disposition home or self-care (01) ==
LOC: EDSTATUS 11:00 → C.PAT 16:16
PROVIDERS: ATTEND Ophthalmology
DX: H26.9 Unspecified cataract (principal); Z53.9 Procedure and treatment not carried out, unspecified reason

== ENCOUNTER → 2018-05-18 | Outpatient (CLI) | payer BC ==
[~2018-05-18] MED LIST changes: -CYCLOPENTOLATE HCL 1% OP SOLN PER DROP CHARGE OPL SCH; -GATIFLOXACIN OP SOLN PER DROP CHARGE OPL SCH; -KETOROLAC 0.5% OP SOLN PER DROP CHARGE OPL SCH; -LACTATED RINGER'S 1000ML 500 ML IV SCH; -PHENYLEPHRINE HCL 10% OP SOLN PER DROP CHARGE OPL SCH; -PHENYLEPHRINE HCL 2.5% OP SOLN PER DROP CHARGE OPL SCH; -PROPARACAINE 0.5% OP SOLN PER DROP CHARGE OPL SCH; -TROPICAMIDE 1% OP SOLN PER DROP CHARGE OPL SCH
--- NOTE | 2018-05-18 11:32 | DIAGNOSTIC IMAGING REPORT ---
SOFT TISS HEAD/NECK-THYROID HISTORY: Nodule THYROID NODULE F/U COMPARISON: 10/26/2017 FINDINGS: Right lobe: Maximum dimension 5.3 cm. 2 cm hypoechoic nodule. Left lobe: Maximum dimension 5.0 cm. Isthmus: No nodules. IMPRESSION: 2 cm hypoechoic nodule right thyroid. If biopsy has not been performed, this should be seriously considered. The above report was generated using voice recognition software. It may contain grammatical, syntax or spelling errors. Electronically signed by: Juan Skaggs M.D. 05/18/2018 11:30 AM Dictated Date/Time: 05/18/2018 11:12 AM
== END | disposition home or self-care (01) ==
LOC: C.ULTR 10:18
PROVIDERS: ATTEND Internal Medicine
DX: E04.1 Nontoxic single thyroid nodule (principal)

== ENCOUNTER 2018-10-14 20:07 | Inpatient (IN) ==
--- NOTE | 2018-10-14 21:42 | CT Scan Report ---
HEAD CT NONCONTRAST CT DOSE: 537.48 mGy.cm HISTORY: left face and hand numbness eval for stroke TECHNIQUE: Multiaxial CT images of the head were performed without the use of intravenous contrast. A utomated exposure control was utilized for this study. A dose lowering technique was utilized adheri ng to the principles of ALARA. Comparison: Head CT 10/11/2018. Findings: The paranasal sinuses and mastoid air cells are clear. The calvarium and skull base are int act. There is no mass, hematoma, midline shift, acute infarct. White matter hypodensity is nonspecifi c but suggestive of microvascular ischemic change. The ventricles and sulci demonstrate mild age-rela david involutional changes. Impression: No acute intracranial abnormality. Atrophy and microvascular ischemic changes. Electronically signed by: Last Guerrero M.D. 10/14/2018 9:41 PM
[2018-10-14 22:06] LABS: Basophils # (auto) 0.02 K/uL (0-0.2); Basophils % (auto) 0.3 %; Eosinophils # (auto) 0.09 K/uL (0-0.5); Eosinophils % (auto) 1.6 %; Hematocrit (blood only) 41.2 % (37-47); Hemoglobin 13.2 g/dL (12.0-16.0); Immature Granulocytes # (auto) 0.01 K/uL (0.00-0.02); Immature Granulocytes % (auto) 0.2 %; Lymphocytes # (auto) 1.04 K/uL (1.2-3.4); Mean Corpuscular Volume 94.1 fL (80-100); Monocytes # (auto) 0.63 K/uL (0.11-0.59); Monocytes % (auto) 10.9 %; Platelet Count 197 K/uL (130-400); RDW Coefficient of Variation 13.5 % (11.5-14.5); RDW Standard Deviation 46.8 fL (36.4-46.3); Red Blood Count 4.38 M/uL (4.2-5.4); White Blood Count 5.79 K/uL (4.8-10.8)
[2018-10-14 22:16] LABS: Partial Thromboplastin Time 26.3 Seconds (21.0-31.0); Prothrombin Time 10.5 Seconds (9.0-12.0)
[2018-10-14 22:18] LABS: Alanine Aminotransferase 23 U/L (12-78); Albumin Level 3.6 gm/dl (3.4-5.0); Aspartate Aminotransferase 18 U/L (15-37); BUN Creatinine Ratio 30.1 (10-20); Bilirubin Direct < 0.1 mg/dl (0-0.2); Blood Urea Nitrogen 21 mg/dl (7-18); Calcium 8.5 mg/dl (8.5-10.1); Carbon Dioxide 27 mmol/L (21-32); Chloride 105 mmol/L (98-107); Creatinine Clr Calc Pharmacy 41.2 ml/min; Est GFR (African American) 92.4; Est GFR (Non-African American) 79.8; Glucose 93 mg/dl (70-99); Potassium 3.6 mmol/L (3.5-5.1); Sodium 138 mmol/L (136-145)
[2018-10-14 22:23] LABS: Alkaline Phosphatase 153 U/L (45-117); Bilirubin,Total 0.2 mg/dl (0.1-1); Total Protein 7.4 gm/dl (6.4-8.2); Troponin I < 0.015 ng/ml (0-0.045)
--- NOTE | 2018-10-15 00:49 | Emergency Department Note ---
Entered by Óscar García acting as a scribe for History of Present Illness General Chief complaint: Neuro Symptoms/Deficit Stated complaint: NUMB HANDS,TIA SYMPTOMS Source: patient Limitations: no limitations History of Present Illness Provider complaint: Left hand numbness Onset (ago): hour(s) (2) Location: lower extremity (left hand) and left Pain Consistency: + now resolved Quality: + other (numbness) Exacerbated By: + none Associated symptoms: + other (tiredness); no syncope and no weakness Treatments prior to arrival: none The patient is an 83 year old female who presents to the Emergency Room with complaints of a now-resolved episode of left hand numbness that occurred at 1900 , about 2 hours ago. This is the patient's third visit to the emergency department in the past 4 days for these symptoms. She states that the episode of left hand numbness lasted for 30 minutes this evening, before resolving spontaneously. She reported back to the ED today as the numbness radiated up into the left side of her face. She is not having any symptoms at this time, but does feel generally "tired." She denies any weakness, fever, chest pain, or headaches. The patient had similar symptoms onset last night as she was soaking in the bathtub. There was no numbness in the face on this episode. The patient has a history of many TIAs and had her last MRI in February of this year. Home Medications Home Medications Medication Instructions Recorded Confirmed Type cholecalciferol (vitamin D3) 2,000 unit PO QAM #0 03/21/17 10/14/18 History folic acid 1 mg PO QAM #0 03/21/17 10/14/18 History aspirin 81 mg PO QAM #0 10/08/17 10/14/18 History atorvastatin [Lipitor] 20 mg PO QAM #0 tab 02/11/18 10/14/18 History lisinopril 10 mg PO HS #0 02/11/18 10/14/18 History omeprazole 20 mg PO QAM #0 02/11/18 10/14/18 History apixaban [Eliquis] 2.5 mg PO BID #0 tab 03/29/18 10/14/18 History cyanocobalamin (vitamin B-12) 2,000 mcg PO QAM #0 03/29/18 10/14/18 History gabapentin [Neurontin] 100 mg PO HS #0 cap 04/29/18 10/14/18 History bimatoprost [Lumigan] 1 drp OPB HS 10/11/18 10/14/18 History metoprolol tartrate 25 mg PO BID 10/11/18 10/14/18 History Allergies Allergy/AdvReac Type Severity Reaction Status Date / Time tetanus toxoid, adsorbed Allergy Mild SWELLING Verified 10/14/18 00:44 AND REDNESS sulfamethoxazole AdvReac Dizziness Verified 10/14/18 00:44 [From Bactrim] trimethoprim [From Bactrim] AdvReac Dizziness Verified 10/14/18 00:44 Past Med/Surg History Medical History History of osteoporosis (Chronic) TIA (transient ischemic attack) (Chronic) Uterine prolapse (Chronic) Hx of MTHFR mutation (Chronic) Atrial fibrillation (Chronic) History of breast cancer (Chronic) "intraductal carcinoma left breast, s/p lumpectomy" Small bowel obstruction (Resolved) History of pulmonary embolism (Chronic) Dehydration (Acute) SBO (small bowel obstruction) Atrial fibrillation with RVR UGIB (upper gastrointestinal bleed) Preoperative cardiovascular examination (Resolved) Encounter for pre-operative examination DNR (do not resuscitate) DVT prophylaxis GERD (gastroesophageal reflux disease) HTN (hypertension) History of breast cancer s/p lumpectomy + chemo/radiation History of hysterectomy Hx of deep venous thrombosis Hyperlipidemia Incontinent of urine Nausea and vomiting after administration of anesthetic agent Osteoporosis Paroxysmal atrial fibrillation dx within the past year - follows w/ dr. arteaga SBO (small bowel obstruction) TIA (transient ischemic attack) multiple. believes most recent TIA 4-5 months ago. follows w/ dr. moss Thyroid cancer dx 1 week ago - plan of care to be determined Surgical History Status post hysterectomy (Chronic) Status post partial mastectomy (Chronic) "left breast, DCIS" History of bladder surgery (Chronic) History of hysterectomy (Chronic) S/P exploratory laparotomy History of colonoscopy History of esophagogastroduodenoscopy (EGD) History of intestinal surgery History of total abdominal hysterectomy and bilateral salpingo-oophorectomy Hx of exploratory laparotomy Hx of lumpectomy rt breast Status post biopsy of thyroid gland Family History Other No significant family history Social History Feels Safe at Home: Yes Smoking Status: Never smoker Preferred Language: [place] Review of Systems See HPI for pertinent positives & negatives. and A total of 10 systems reviewed and were otherwise negative Physical Exam Vital Signs Vital Signs - 24 hr 10/14/18 20:13 10/14/18 22:04 10/14/18 22:32 Temperature 36.6 C Temperature Source Oral Sepsis Recent Fever Within 48 Hours No Sepsis Action Taken by Nursing No Action Required Pulse Rate 105 H Pulse Rate [Apical] 57 L 60 Respiratory Rate 16 18 18 Respiratory Effort / Characteristics Non-Labored Spontaneous Non-Labored Non-Labored Respiratory Depth Normal Normal Normal Blood Pressure 140/73 Blood Pressure [Left Arm] 164/93 H 156/79 H Blood Pressure Mean 95 Blood Pressure Mean [Left Arm] 116 104 Blood Pressure Position [Left Arm] Pulse Oximetry 99 97 98 Oxygen Delivery Method Room Air Room Air Room Air 10/14/18 23:28 10/15/18 00:30 Temperature Temperature Source Sepsis Recent Fever Within 48 Hours Sepsis Action Taken by Nursing Pulse Rate 64 Pulse Rate [Apical] 60 Respiratory Rate 18 16 Respiratory Effort / Characteristics Respiratory Depth Blood Pressure 147/89 H Blood Pressure [Left Arm] 157/82 H Blood Pressure Mean Blood Pressure Mean [Left Arm] 107 Blood Pressure Position [Left Arm] Lying Pulse Oximetry 100 100 Oxygen Delivery Method Room Air Room Air Constitutional: Vital signs reviewed. Eyes: Pupils are equal round reactive to light. Conjunctiva are noninjected. ENT: Pharynx is clear without erythema or exudate. Mucous membranes are moist. Neck supple without meningeal signs. Respiratory: Clear to auscultation bilaterally. Breath sounds are equal bilaterally. Cardiovascular: Regular rate and rhythm. No rubs or gallops. GI: Soft, nondistended and nontender. Bowel sounds are present. Musculoskeletal: No peripheral edema. No lower extremity tenderness. Integumentary: No cyanosis. Neurological: The patient is awake and alert. Cranial nerves II-XII are intact. Motor is 5 out of 5 all extremities. Sensation is intact to light touch all extremities. Normal speech. No pronator drift. No limb ataxia. Psychiatric: Normal affect. Course 2055: Past medical records reviewed. The patient was evaluated in room C12B, and a complete history and physical examination were performed. 2247: Upon reevaluation, the patient appeared to have improvement of her symptoms. I discussed edgar's findings with her. She verbalized agreement of the treatment plan. 2248: I reviewed the patient's case with Dr. Elvia Carney. He will evaluate the patient for further management. Consultations Consultation #1: 2248: I reviewed the patient's case with Dr. Elvia Carney. He will evaluate the patient for further management. Medical Decision Making Differential Diagnosis Differential Diagnosis includes: TIA, CVA, ICH, intracranial mass, metabolic derangement. Medical Records Attestation: I reviewed the patient's medical records. Home Medications Current Medication List: was personally reviewed by me Laboratory Data Attestation: I reviewed the patient's lab results. Result diagrams: 10/14/18 21:51 10/14/18 21:51 Lab Results 10/14/18 10/14/18 10/14/18 Range/Units 20:25 21:51 21:51 WBC 5.79 (4.8-10.8) K/uL RBC 4.38 (4.2-5.4) M/uL Hgb 13.2 (12.0-16.0) g/dL Hct 41.2 (37-47) % MCV 94.1 (80-100) fL MCH 30.1 (25-34) pg MCHC 32.0 (32-36) g/dL RDW Std Deviation 46.8 H (36.4-46.3) fL RDW Coeff of Bassem 13.5 (11.5-14.5) % Plt Count 197 (130-400) K/uL MPV 10.0 (7.4-10.4) fL Immature Gran % (Auto) 0.2 % Neut % (Auto) 69.0 % Lymph % (Auto) 18.0 % Sutton % (Auto) 10.9 % Eos % (Auto) 1.6 % Baso % (Auto) 0.3 % Immature Gran # (Auto) 0.01 (0.00-0.02) K/uL Neut # (Auto) 4.00 (1.4-6.5) K/uL Lymph # (Auto) 1.04 L (1.2-3.4) K/uL Sutton # (Auto) 0.63 H (0.11-0.59) K/uL Eos # (Auto) 0.09 (0-0.5) K/uL Baso # (Auto) 0.02 (0-0.2) K/uL PT 10.5 (9.0-12.0) Seconds INR 1.0 (0.9-1.1) APTT 26.3 (21.0-31.0) Seconds PTT Ratio 1.0 Sodium (136-145) mmol/L Potassium (3.5-5.1) mmol/L Chloride (98-107) mmol/L Carbon Dioxide (21-32) mmol/L Anion Gap (3-11) BUN (7-18) mg/dl Creatinine (0.6-1.2) mg/dl Est Cr Clr Drug Dosing ml/min Est GFR ( Amer) Est GFR (Non-Af Amer) BUN/Creatinine Ratio (10-20) Glucose (70-99) mg/dl POC Glucose 101 H (70-99) Calcium (8.5-10.1) mg/dl Total Bilirubin (0.1-1) mg/dl Direct Bilirubin (0-0.2) mg/dl AST (15-37) U/L ALT (12-78) U/L Alkaline Phosphatase (45-117) U/L Troponin I (0-0.045) ng/ml Total Protein (6.4-8.2) gm/dl Albumin (3.4-5.0) gm/dl 10/14/18 Range/Units 21:51 WBC (4.8-10.8) K/uL RBC (4.2-5.4) M/uL Hgb (12.0-16.0) g/dL Hct (37-47) % MCV (80-100) fL MCH (25-34) pg MCHC (32-36) g/dL RDW Std Deviation (36.4-46.3) fL RDW Coeff of Bassem (11.5-14.5) % Plt Count (130-400) K/uL MPV (7.4-10.4) fL Immature Gran % (Auto) % Neut % (Auto) % Lymph % (Auto) % Sutton % (Auto) % Eos % (Auto) % Baso % (Auto) % Immature Gran # (Auto) (0.00-0.02) K/uL Neut # (Auto) (1.4-6.5) K/uL Lymph # (Auto) (1.2-3.4) K/uL Sutton # (Auto) (0.11-0.59) K/uL Eos # (Auto) (0-0.5) K/uL Baso # (Auto) (0-0.2) K/uL PT (9.0-12.0) Seconds INR (0.9-1.1) APTT (21.0-31.0) Seconds PTT Ratio Sodium 138 (136-145) mmol/L Potassium 3.6 (3.5-5.1) mmol/L Chloride 105 (98-107) mmol/L Carbon Dioxide 27 (21-32) mmol/L Anion Gap 7.0 (3-11) BUN 21 H (7-18) mg/dl Creatinine 0.68 (0.6-1.2) mg/dl Est Cr Clr Drug Dosing 41.2 ml/min Est GFR ( Amer) 92.4 Est GFR (Non-Af Amer) 79.8 BUN/Creatinine Ratio 30.1 H (10-20) Glucose 93 (70-99) mg/dl POC Glucose (70-99) Calcium 8.5 (8.5-10.1) mg/dl Total Bilirubin 0.2 (0.1-1) mg/dl Direct Bilirubin < 0.1 (0-0.2) mg/dl AST 18 (15-37) U/L ALT 23 (12-78) U/L Alkaline Phosphatase 153 H (45-117) U/L Troponin I < 0.015 (0-0.045) ng/ml Total Protein 7.4 (6.4-8.2) gm/dl Albumin 3.6 (3.4-5.0) gm/dl Imaging Data Attestation: I personally reviewed and interpreted this imaging study as follows : Radiologist's Impression: HEAD CT NONCONTRAST CT DOSE: 537.48 mGy.cm HISTORY: left face and hand numbness eval for stroke TECHNIQUE: Multiaxial CT images of the head were performed without the use of intravenous contrast. Automated exposure control was utilized for this study. A dose lowering technique was utilized adhering to the principles of ALARA. Comparison: Head CT 10/11/2018. Findings: The paranasal sinuses and mastoid air cells are clear. The calvarium and skull base are intact. There is no mass, hematoma, midline shift, acute infarct. White matter hypodensity is nonspecific but suggestive of microvascular ischemic change. The ventricles and sulci demonstrate mild age- related involutional changes. Impression: No acute intracranial abnormality. Atrophy and microvascular ischemic changes. Electronically signed by: Last Guerrero M.D. 10/14/2018 9:41 PM ECG Data Attestation: I personally reviewed and interpreted this ECG as follows: Indication: other (Stroke Sx) Rate (beats per minute): 58 Rhythm: sinus bradycardia Findings: + nonspecific-ST abn (Lateral); no PVC Blood Pressure Blood Pressure Findings: Elevated blood pressure Blood Pressure Disposition: Referred to patients primary care provider MDM Narrative I did perform a limited focused review of portions of the patient's old chart on the electronic medical record. The patient was seen here in the ED for numbness in the left hand that presented while she was taking a bath. The patient refused admission and was discharged home. I did evaluate the patient as noted above. The patient is presenting with multiple episodes of left-sided numbness. She states today she developed numbness to the left side of her face which is new. She has a prior history of TIAs and is on aspirin as well as Eliquis. IV access was established. The patient was placed on a continuous cardiac technician. I did order and personally review the patient's 12-lead EKG as described above. Twelve-lead EKG does not show any acute ischemia. I did order and review the patient's blood work as noted in the electronic medical record. Her labs are unremarkable. I did order a CT of the head. I did review the images myself as well as the radiology report as described above. There is no evidence of acute intracranial abnormality. I did discuss the test results with the patient. I did recommend hospitalization for further workup including MRI. I did discuss case with the hospitalist and case manager specialist. Impression & Plan Crescendo transient ischemic attacks, Left facial numbness, Numbness of left hand Discharge Plan Visit Data Chief Complaint: Neuro Symptoms/Deficit Stated Complaint: NUMB HANDS,TIA SYMPTOMS ED Provider: Manoj Sheldon Discharge Problem: Crescendo transient ischemic attacks, Left facial numbness, Numbness of left hand Patient Disposition: Being Evaluated by Hospitalist Discharge Instructions Interventions: ED Discharge Assessment Last Done: 10/15/18 00:30 The jeanibe's documentation has been prepared under my direction and personally reviewed by me in its entirety. I confirm that the note above accurately reflects all work, treatment, procedures, and medical decision making performed by me.
[2018-10-15] MEDS ORDERED: NITROGLYCERIN SL 0.4 MG/TAB TAB SL PRN (00:59)
[2018-10-15] MEDS ORDERED: ONDANSETRON INJ 2 MG/ML 2 ML VIAL IV PRN (00:59)
[2018-10-15] MEDS ORDERED: PHARMACIST DISCHARGE MED REC CONSULT PRN (00:59)
[2018-10-15] MEDS ORDERED: ACETAMINOPHEN 325 MG TAB PO PRN (00:59)
[2018-10-15] MEDS ORDERED: POLYETHYLENE (MIRALAX) 17 GM PACK PO PRN (00:59)
--- NOTE | 2018-10-15 01:37 | History and Physical Report ---
DATE OF ADMISSION: 10/14/2018 CHIEF COMPLAINT: Stroke-like symptoms. HISTORY OF PRESENT ILLNESS: This is an 83-year-old female with past medical history significant for osteoporosis, hyperlipidemia, chronic back pain, history of breast cancer, paroxysmal atrial fibrillation, history of multiple TIAs, hypertension, central retinal vein occlusion of the right eye, MTHFR deficiency, recently diagnosed with papillary thyroid carcinoma, presents with numbness in the left hand and also some tingliness in the left side of the face around the mouth. This is patient's third visit in the last 2-3 days. She came to the ER with similar complaints on 10/11/[address] head was fine and symptoms resolved and because of similar episode in the past and patient is already on aspirin and Eliquis, patient was discharged home and again she came yesterday, while she was in the bathtub, she again notice some tingliness and numbness in left hand and came here and this symptom resolved and she refused to stay in the hospital and got discharged. The patient noticed again tingliness and numbness in the left hand today, which lasted for half hour but again also noticed some tingliness around left side of the mouth, which again worried her and came to the ER. CT of the head is fine and symptoms resolved and the patient seemed to agree to stay this time. She was recently also diagnosed with papillary thyroid carcinoma from the FNA of thyroid nodule. She had thyroid nodules in both sides and she was recently seen by ENT and recommended for a total thyroidectomy, which patient is still thinking about it because she is worried about the risk of the surgery, from her age and comorbid conditions, with history of TIAs. Currently has some headache. She has vision loss in the right eye. No sore throat, no difficulty swallowing. Appetite is okay, sleeping okay. No chest pain, no shortness of breath, no cough, no fevers, no nausea, no abdominal pain. Normal bowel and bladder movements. Currently, resting comfortable and hemodynamically stable. She lives alone. She ambulates with a cane and 1 daughter lives next door. ALLERGIES: TETANUS TOXOID. PAST MEDICAL HISTORY: As mentioned above. PAST SURGICAL HISTORY: Colonoscopy, colpopexy, cystoscopy with insertion of stent, exploratory laparotomy, extensive repair of vagina, urethrography, enterolysis of intestines, ureteroneocystostomy, partial mastectomy of the right breast, proctosigmoidoscopy, urethroplasty reconstruction, ureterolysis for retroperitoneal fibrosis, oophorectomy, vaginal sling procedure for stress incontinence, revision and removal of the sling repair, vaginal hysterectomy. MEDICATIONS: The patient is on Eliquis 2.5 mg p.o. b.i.d., Lopressor 25 mg p.o. b.i.d., cyanocobalamin 2000 mcg p.o. daily, atorvastatin 20 mg p.o. daily, gabapentin 100 mg p.o. at bedtime, Colace 200 mg p.o. daily p.r.n., Senokot-S 1 tablet p.o. daily p.r.n., MiraLax 17 g p.o. daily p.r.n., folic acid 1 mg p.o. daily, omeprazole 20 mg p.o. daily, lisinopril 10 mg p.o. daily, aspirin 81 mg p.o. daily, Lumigan ophthalmic solution as directed, vitamin D 1000 units p.o. daily, Centrum 1 tablet p.o. daily. FAMILY HISTORY: Significant for father had stroke, at age of 76 from CVA. Sister has breast cancer. SOCIAL HISTORY: The patient lives alone. Daughter lives next door. No alcohol use, no drug use. No smoking. REVIEW OF SYMPTOMS: As per HPI. Rest of review of systems negative. PHYSICAL EXAMINATION: GENERAL: The patient is alert and oriented, old and frail. VITAL SIGNS: Temperature 36.6, pulse 60, respiratory rate 18, blood pressure 157/82, oxygen 100% room air. HEENT: No pallor, no icterus. NECK: No JVD, no neck masses, no carotid bruits. CARDIOVASCULAR: S1, S2 heard. Regular rate and rhythm, no murmur, no gallop. RESPIRATORY SYSTEM: Normal AP diameter. No accessory muscle use. No wheezing, no crackles. ABDOMEN: Soft, bowel sounds present. Nontender. No distention. CENTRAL NERVOUS SYSTEM: Cranial nerves II-XII grossly intact. Power 5/5 in all extremities. Sensation is intact. Coordination was normal. No pronator drift. EXTREMITIES: No edema, no erythema. LABORATORIES: WBC is 5.7, hemoglobin 13.2, hematocrit 41.2, platelets 197. PT 10.5, INR 1, APTT 26.3. Sodium 138, potassium 3.6, chloride 105, CO2 27, BUN 21, creatinine 0.6, serum glucose 93, calcium 8.5, total bilirubin 0.2, direct bilirubin less than 0.1, AST 18, ALT 23, alkaline phosphatase is 153. Troponin I less than 0.015. CT of the head, no acute intracranial abnormality seen. EKG: Sinus bradycardia at the rate of 58, nonspecific ST abnormality. No significant change from previous EKG. ASSESSMENT AND PLAN: This is an 83-year-old female who presents with stroke-like symptoms. 1. Stroke-like symptoms, possible transient ischemic attack, history of multiple transient ischemic attacks in the past, history of MTHFR, history of atrial fibrillation, on Eliquis and aspirin. CT of the head was unremarkable. The patient is okay for MRI. We will do MRI, echocardiogram, and carotid Doppler. Speech evaluation, physical therapy, occupational therapy, and neuro consulted in morning and monitor in tele floor. Neuro checks per protocol. Currently stable. 2. History of atrial fibrillation, rate under control. The patient on Lopressor, Eliquis, and aspirin. 3. Hypertension. Continue on Lopressor and lisinopril. We will monitor the blood pressure. 4. Recent diagnosis of papillary thyroid carcinoma. ENT recommended total thyroidectomy, but patient is still thinking about it. The patient is worried about her risk factors. To follow up with ENT and primary care physician. 5. Hyperlipidemia. Patient is Lipitor 20 mg daily at home, currently changed to 40 mg as per protocol. Follow lipid profile. 6. History of breast cancer status post partial right mastectomy. 7. Gastroesophageal reflux disease, on proton pump inhibitor. 8. Deep vein thrombosis prophylaxis, on Eliquis. DISPOSITION: Admit to tele floor. PT, OT prior to discharge. Social service to help with discharge planning. Level I full code only if there is chance of recovery. MTDD
[2018-10-15] MEDS ORDERED: LISINOPRIL 10 MG TAB PO STA (01:50)
[2018-10-15] MEDS ORDERED: GADOBUTROL 65ML VIAL IV PRN (06:41)
--- NOTE | 2018-10-15 07:02 | Magnetic Resonance Report ---
MRI OF THE BRAIN WITHOUT AND WITH IV CONTRAST CLINICAL HISTORY: Left hand weakness and numbness. Stroke like symptoms. Remote history of breast car cinoma area COMPARISON STUDY: Noncontrast head CT dated 10/14/2018 TECHNIQUE: MRI of the brain was performed from the vertex to the skull base utilizing various T1 and T2 weighted sequences. Following the IV administration of 4.5 mL of Gadavist contrast, additional enh anced images were obtained. FINDINGS: Sagittal T1, axial diffusion, proton density and T2 weighted axial, coronal FLAIR, and pre and post a xial T1-weighted images were acquired. These were supplemented with post gadolinium coronal T1 weight ed images. No intra or extra-axial mass lesions are visualized. Axial diffusion-weighted images reveal no evidence of acute or subacute infarction. There is no evidence of ventricular dilatation. Proton density T2-weighted and FLAIR images reveal moderate foci of increased T2 signal within the wh ite matter, likely on a small vessel basis. There are no abnormal flow voids. There is no evidence of pathologic enhancement. IMPRESSION: 1. No acute intracranial findings 2. No evidence of acute or subacute infarction 3. No evidence of intracranial mass 4. Moderate foci of increased T2 and FLAIR signal within the white matter, likely on a small vessel b asis. Electronically signed by: Jericho Ponce M.D. 10/15/2018 7:01 AM
[2018-10-15 07:13] VITALS: TEMP 97.7; O2SAT 99
[2018-10-15] MEDS ORDERED: INFLUENZA VACCINE HIGH DOSE 65+ 0.5 ML SYR IM ONE (07:15)
[2018-10-15] MEDS ORDERED: INFLUENZA ADMINISTRATION CHARGE ONE (07:15)
[2018-10-15] MEDS ORDERED: PNEUMOCOCCAL ADMINISTRATION CHARGE ONE (07:15)
[2018-10-15] MEDS ORDERED: PNEUMOCOCCAL POLYSACCHARIDES 25 MCG/0.5 ML VIAL/SYR IM ONE (07:15)
--- NOTE | 2018-10-15 07:26 | Ultrasound Report ---
US carotid doppler BI CLINICAL HISTORY: 83 years-old Female presenting with cva?. TECHNIQUE: Real-time grayscale and color and spectral Doppler ultrasound imaging of the bilateral car otid arteries was performed. NASCET criteria was used in evaluating this study. COMPARISON: 11/15/2016. FINDINGS: RIGHT: Common carotid artery (CCA): Patent. Peak systolic velocity (PSV) 62 cm/s. Internal carotid artery (ICA): Patent. PSV 69 cm/s. End diastolic velocity (EDV) 25 cm/s. ICA/CCA (systolic) ratio: 1.1. External carotid artery (ECA): Patent. PSV 52 cm/s. LEFT: CCA: Patent. PSV 77 cm/s. ICA: Patent. PSV 58 cm/s. EDV 16 cm/s. ICA/CCA (systolic) ratio: 0.8. ECA: Patent. PSV 69 cm/s. Bilateral antegrade flow within the vertebral arteries. Blood pressure: Brachial: Right: 191/97 mmHg, Left: 177/84 mmHg. Reference ranges: Stenosis measurements are compared to reference velocity parameters by the Society of Radiologists in Ultrasound (SRU) consensus and Sonographic NASCET index (S-NASCET). * SRU Primary parameters: ICA PSV <125 cm/s = normal or less than 50% stenosis; ICA PSV 125-230 cm/s = 50-69% stenosis; ICA PSV >230 cm/s = greater than or equal to 70% stenosis. * SRU Additional parameters: ICA/CCA PSV ratio <2 = normal or less than 50% stenosis; ratio 2-4 = 5 0-69% stenosis; ratio >4 = greater than or equal to 70% stenosis. ICA EDV <40 cm/s = normal or less t loredo 50% stenosis; ICA EDV 40-100 cm/s = 50-69% stenosis; ICA EDV >100 cm/s = greater than or equal to 70% stenosis. * S-NASCET parameters: Deceleration spectral broadening + PSV <125 cm/s = less than 50% stenosis; pa nsystolic spectral broadening + PSV <125 cm/s = 16-49% stenosis; pansystolic spectral broadening + PS V >125 cm/s + EDV <110 cm/s or ICA/CCA PSV ratio 2-4 = 50-69% stenosis; pansystolic spectral broadeni ng + PSV >270 cm/s OR EDV >110 cm/s OR ICA/CCA PSV ratio >4 = 70-79% stenosis; EDV >140 cm/s = 80-99% stenosis. IMPRESSION: 1. No hemodynamically significant stenosis seen within the carotid arteries. 2. Systemic hypertension. Electronically signed by: Seabstián Person M.D. 10/15/2018 7:25 AM
[2018-10-15 07:33] LABS: Basophils # (auto) 0.01 K/uL (0-0.2); Basophils % (auto) 0.2 %; Eosinophils # (auto) 0.06 K/uL (0-0.5); Eosinophils % (auto) 1.2 %; Hematocrit (blood only) 37.8 % (37-47); Hemoglobin 12.2 g/dL (12.0-16.0); Immature Granulocytes # (auto) 0.01 K/uL (0.00-0.02); Immature Granulocytes % (auto) 0.2 %; Lymphocytes # (auto) 0.84 K/uL (1.2-3.4); Lymphocytes % (auto) 16.7 %; Mean Corpuscular Hgb Conc 32.3 g/dL (32-36); Mean Corpuscular Volume 92.9 fL (80-100); Mean Platelet Volume 10.3 fL (7.4-10.4); Monocytes # (auto) 0.53 K/uL (0.11-0.59); Monocytes % (auto) 10.6 %; Neutrophils # (auto) 3.57 K/uL (1.4-6.5); Neutrophils % (auto) 71.1 %; Platelet Count 185 K/uL (130-400); RDW Coefficient of Variation 13.7 % (11.5-14.5); RDW Standard Deviation 46.4 fL (36.4-46.3); Red Blood Count 4.07 M/uL (4.2-5.4); White Blood Count 5.02 K/uL (4.8-10.8)
[2018-10-15 07:55] LABS: Estimated Average Glucose 123 mg/dl
[2018-10-15 08:14] LABS: BUN Creatinine Ratio 29.3 (10-20); Calcium 8.5 mg/dl (8.5-10.1); Creatinine Clr Calc Pharmacy 49.2 ml/min; Est GFR (Non-African American) 84.5; Potassium 3.7 mmol/L (3.5-5.1)
[2018-10-15] MEDS ORDERED: ATORVASTATIN 40 MG TAB PO SCH (09:00)
[2018-10-15] MEDS ORDERED: APIXABAN 2.5 MG TAB PO SCH (09:00)
[2018-10-15] MEDS ORDERED: FOLIC ACID 1 MG TAB PO SCH (09:00)
[2018-10-15] MEDS ORDERED: ASPIRIN 81 MG ECTAB PO SCH (09:00)
[2018-10-15] MEDS ORDERED: METOPROLOL TARTRATE 25 MG TAB PO SCH (09:00)
[2018-10-15] MEDS ORDERED: PANTOprazole 40 MG TAB PO SCH (09:00)
[2018-10-15] MEDS ORDERED: CYANOCOBALAMIN 500 MCG TABLET (VITAMIN B-12) PO SCH (09:00)
[2018-10-15] MEDS ORDERED: CHOLECALCIFEROL 1,000 UNITS TAB PO SCH (09:00)
[2018-10-15] MEDS ORDERED: TIMOLOL MALEATE 0.5% OP SOLN 5 ML BTL OPL SCH (10:00)
[2018-10-15 14:57] VITALS: BP 184/88
--- NOTE | 2018-10-15 18:05 | Hospitalist Progress Note ---
Date of Service October 15, 2018 Assessment & Plan (1) Numbness of left hand: Presented to ED with recurrent paresthesiae of LUE and left face. Head CT showed atrophy, small vessel ischemic changes, no acute event. MRI brain showed similar changes. Carotid duplex did not show any significant stenosis. Echo did not show any intracardiac thrombi. History of AF, but currently in NSR. Seen in consultation by Neurology. No evidence of acute stroke. Possibility of migraine considered. Neurology recommended increasing gabapentin to 200 mg HS. Continue aspirin and apixaban. (2) Atrial fibrillation: Currently in NSR. Continue metoprolol and apixaban. (3) History of pulmonary embolism: History of PE. Underlying MTHFR mutation. Continue apixaban and folic acid. (4) Essential hypertension: BP fluctuated. Continue metoprolol and lisinopril. Follow and titrate therapy. 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 (6) DVT prophylaxis: Continue apixaban. (7) Discharge planning issues: Discharge to home. Internal Medicine follow-up with Dr. Plascencia. Neurology follow-up with Dr. Caro. Subjective Doing well. No headache. No recurrence of paresthesiae LUE or face. No other neuro symptoms. No fever, chest pain, cough, SOB, nausea, vomiting. Physical Exam 2 Vital Signs (Past 24 Hours): Last Vital Signs Temp 36.5 C 10/15/18 14:55 Pulse 56 L 10/15/18 14:55 Resp 16 10/15/18 14:55 BP 184/88 H 10/15/18 14:55 Pulse Ox 99 10/15/18 14:55 Constitutional: no acute distress Respiratory: no respiratory distress Auscultation: lungs clear to auscultation bilaterally Cardiovascular: Rate/Rhythm: regular rate and regular rhythm Heart Sounds: no gallop, no murmur and no cardiac rub Vessels: no JVD Extremities: no calf tenderness and no edema Gastrointestinal (Abdomen): normal bowel sounds, soft, nontender, no hepatosplenomegaly Skin: no rashes, warm and dry Neurologic: PERRL, EOMI, no facial palsy, no dysarthria, no aphasia; motor strength upper and lower extremities 5/5 Psychiatric: Orientation: alert and oriented x 3 Results & Data Laboratory Results Short CBC 10/14/18 10/15/18 Range/Units 21:51 07:04 WBC 5.79 5.02 (4.8-10.8) K/uL Hgb 13.2 12.2 (12.0-16.0) g/dL Hct 41.2 37.8 (37-47) % Plt Count 197 185 (130-400) K/uL BMP 10/14/18 10/15/18 21:51 07:04 Sodium 138 140 Potassium 3.6 3.7 Chloride 105 106 Carbon Dioxide 27 25 BUN 21 H 17 Creatinine 0.68 0.57 L Glucose 93 91 Calcium 8.5 8.5 Cardiac Enzymes 10/14/18 Range/Units 21:51 Troponin I < 0.015 (0-0.045) ng/ml Liver Function 10/14/18 Range/Units 21:51 Total Bilirubin 0.2 (0.1-1) mg/dl Direct Bilirubin < 0.1 (0-0.2) mg/dl AST 18 (15-37) U/L ALT 23 (12-78) U/L Alkaline Phosphatase 153 H (45-117) U/L Albumin 3.6 (3.4-5.0) gm/dl
[2018-10-15] MEDS ORDERED: STROKE PATIENT DISCHARGE STA (18:12)
[2018-10-15 18:26] VITALS: PULSE 62
--- NOTE | 2018-10-15 18:55 | Pharmacy Report ---
Pharmacist Stroke Counseling - Date of Service October 15, 2018 - Scope: Pharmacy has been consulted to provide medication discharge counseling for this patient admitted with possible stroke like symptoms as per the Pharmacist Discharge Counseling for Stroke Patients Protocol. - Medications on Discharge: Home Medications Medication Instructions Recorded Confirmed cholecalciferol (vitamin D3) 2,000 unit PO QAM #0 03/21/17 10/14/18 folic acid 1 mg PO QAM #0 03/21/17 10/14/18 aspirin 81 mg PO QAM #0 10/08/17 10/14/18 atorvastatin [Lipitor] 20 mg PO QAM #0 tab 02/11/18 10/14/18 lisinopril 10 mg PO HS #0 02/11/18 10/14/18 omeprazole 20 mg PO QAM #0 02/11/18 10/14/18 apixaban [Eliquis] 2.5 mg PO BID #0 tab 03/29/18 10/14/18 cyanocobalamin (vitamin B-12) 2,000 mcg PO QAM #0 03/29/18 10/14/18 bimatoprost [Lumigan] 1 drp OPB HS 10/11/18 10/14/18 metoprolol tartrate 25 mg PO BID 10/11/18 10/14/18 bromfenac 1 drp OPL QAM 10/15/18 10/15/18 difluprednate 1 drp OPL QAM 10/15/18 10/15/18 timolol 1 drp OPHTHALMIC (EYE) QAM 10/15/18 10/15/18 New Rx's Medication Instructions Recorded gabapentin 200 mg PO HS #60 cap 10/15/18 - Action: The above medications, specifically ones for stroke treatment/prophylaxis, have been reviewed in detail with the patient and/or patient accounts receivable representative(s) prior to discharge. This includes indication, common adverse reactions, drug interactions, and medication administration. Medication counseling has been employed using the teach-back method to ensure understanding. - Outcome: The patient and/or patient accounts receivable representative(s) have demonstrated understanding of the medications. Please note, they are aware that the pharmacist will call them within 72 hours post-discharge to confirm that the appropriate medications are being taken and answer any further medication related questions the patient might have at that time. Contact information Individual to be contacted: patient Relationship to patient (if applicable): n/a Phone number: [phone] Best time to call: anytime Additional comments: Patient very pleasant to talk with today. States she lives at home and manages her medications herself. Already has a medication box at home that she uses to keep track of her medications. Reviewed all of her medications and talked about her new medications. Patient eager to leave, did not have any questions. Stated that we will call in a couple days to follow up with her and to answer any questions at that time. Thank you for allowing pharmacy to be involved in the care of this patient. Please call [phone] or [phone] with any additional questions
[2018-10-15] MEDS ORDERED: GABAPENTIN 100 MG CAP PO SCH (21:00)
[2018-10-15] MEDS ORDERED: BIMATOPROST 0.01% OP SOLN 2.5 ML BTL OPB SCH (21:00)
[2018-10-15] MEDS ORDERED: LISINOPRIL 10 MG TAB PO SCH (21:00)
--- NOTE | 2018-10-16 00:12 | Consultation Report ---
DATE OF CONSULTATION: 10/15/2018 REASON FOR CONSULTATION: Tingling left arm and left face. HISTORY OF PRESENT ILLNESS: The patient is an 83-year-old female who is very well known to Dr. Caro with a history of osteoporosis, hyperlipidemia, chronic back pain, breast cancer, paroxysmal atrial fibrillation, "multiple TIAs," hypertension, central retinal vein occlusion on the right, recent diagnosis of papillary thyroid carcinoma, presented with recurrent episodes of tingling in the left hand and the left face, lasting about 15 minutes. She may have had a mild headache associated with one of the episodes were following. These episodes have been recurrent over time. She had several within the last several days. She does admit that she missed a gabapentin dose in the last several days; denies missing Eliquis or aspirin. I had seen her in neurology consultation approximately 1 year ago for similar symptoms. The episode at that time was associated with mild droop of the left face and dysarthria. An EEG, CTA were unremarkable and I recommended that she be placed on gabapentin which may prophylax a cephalic migrainous phenomenon which would be unusual in a patient of this age and for partial seizures. She by report has not had any episodes for the last 1 year until the aforementioned episodes. She has otherwise been well. She had cataract surgery in the summer. She again has had the aforementioned diagnosis of a thyroid cancer. On this admission, blood pressure as noted on admission was 158/82. She was afebrile. Her labs were noncontributory. CT of the head, no acute abnormality. EKG sinus bradycardia, rate of 58. MRI of the brain, which I have reviewed, shows chronic bilateral ischemic changes. PAST MEDICAL HISTORY: As above. PAST SURGICAL HISTORY: Colonoscopy, colpopexy, cystoscopy, exploratory laparotomy, repair of vagina, urethrography, enterolysis of intestines, ureteronephrocystostomy, partial mastectomy, proctosigmoidoscopy, ureteroplasty, ureterolysis for retroperitoneal fibrosis, oophorectomy, vaginal sling revision and removal of vaginal sling, vaginal hysterectomy. MEDICATIONS: On admission, Eliquis, Lopressor, cyanocobalamin, atorvastatin, gabapentin 100 at bedtime, Colace, Senokot, MiraLax, folic acid, omeprazole, lisinopril, aspirin, Lumigan, vitamin D, Centrum. FAMILY HISTORY: Father had stroke, at age 76. Sister has breast cancer, lives alone. Daughter lives nearby. Nonsmoker, nondrinker. ALLERGIES: TETANUS TOXOID, ABSORBED SULFAMETHOXAZOLE, TRIMETHOPRIM. PHYSICAL EXAMINATION: VITAL SIGNS: Blood pressure 184/88, pulse 56, temperature 36.5. GENERAL: The patient is awake and alert, a fair historian. She contradicts her history giving somewhat for instance tells me that the last spell that she had had prior to these was several days after her . I know that she had an episode a year ago and her several years ago. Her spontaneous speech and language is nondysarthric and nondysphasic. There are no carotid bruits. 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 Normal motility, facial sensation and symmetry. Motor 5/5. No drift. Normal rapid alternating movements. Symmetric reflexes. Downgoing toes. Fdfjaz-sq-[id number] and rdmn-vj-wuhs are normal. Her gait is orthopedic. IMPRESSION: Recurrent episodes of the left hand tingling and left face tingling with multiple prior workups and current workups not showing any ischemia, intracranial or extracranial stenosis or seizure. PLAN: I would try to prophylaxis as a migraine. It is interesting that she may have missed a dose took gabapentin. I would increase the dose of gabapentin to 200 mg at bedtime. Anxiety is certainly within the differential. The patient asked for my advice about when to seek medical attention. I advised that if she has recurrent events with new neurologic symptoms, if the neurologic symptoms are atypically prolonged or if the patient has significant concern. The patient should see Dr. Caro in followup.
--- NOTE | 2018-10-17 08:07 | Discharge Summary ---
Date of Service October 17, 2018 Admission HPI Per Admitting Provider This is an 83-year-old female with past medical history significant for osteoporosis, hyperlipidemia, chronic back pain, history of breast cancer, paroxysmal atrial fibrillation, history of multiple TIAs, hypertension, central retinal vein occlusion of the right eye, MTHFR deficiency, recently diagnosed with papillary thyroid carcinoma, presents with numbness in the left hand and also some tingliness in the left side of the face around the mouth. This is patient's third visit in the last 2-3 days. She came to the ER with similar complaints on 10/11/[address] head was fine and symptoms resolved and because of similar episode in the past and patient is already on aspirin and Eliquis, patient was discharged home and again she came yesterday, while she was in the bathtub, she again notice some tingliness and numbness in left hand and came here and this symptom resolved and she refused to stay in the hospital and got discharged. The patient noticed again tingliness and numbness in the left hand today, which lasted for half hour but again also noticed some tingliness around left side of the mouth, which again worried her and came to the ER. CT of the head is fine and symptoms resolved and the patient seemed to agree to stay this time. She was recently also diagnosed with papillary thyroid carcinoma from the FNA of thyroid nodule. She had thyroid nodules in both sides and she was recently seen by ENT and recommended for a total thyroidectomy, which patient is still thinking about it because she is worried about the risk of the surgery, from her age and comorbid conditions, with history of TIAs. Currently has some headache. She has vision loss in the right eye. No sore throat, no difficulty swallowing. Appetite is okay, sleeping okay. No chest pain, no shortness of breath, no cough, no fevers, no nausea, no abdominal pain. Normal bowel and bladder movements. Currently, resting comfortable and hemodynamically stable. She lives alone. She ambulates with a cane and 1 daughter lives next door. Admission Exam Per Admitting Provider GENERAL: The patient is alert and oriented, old and frail. VITAL SIGNS: Temperature 36.6, pulse 60, respiratory rate 18, blood pressure 157/82, oxygen 100% room air. HEENT: No pallor, no icterus. NECK: No JVD, no neck masses, no carotid bruits. CARDIOVASCULAR: S1, S2 heard. Regular rate and rhythm, no murmur, no gallop. RESPIRATORY SYSTEM: Normal AP diameter. No accessory muscle use. No wheezing, no crackles. ABDOMEN: Soft, bowel sounds present. Nontender. No distention. CENTRAL NERVOUS SYSTEM: Cranial nerves II-XII grossly intact. Power 5/5 in all extremities. Sensation is intact. Coordination was normal. No pronator drift. EXTREMITIES: No edema, no erythema. Principal Diagnosis paresthesiae of left face and left upper extremity, no evidence of stroke Discharge Data Allergies Allergy/AdvReac Type Severity Reaction Status Date / Time tetanus toxoid, adsorbed Allergy Mild SWELLING Verified 10/14/18 00:44 AND REDNESS sulfamethoxazole AdvReac Dizziness Verified 10/14/18 00:44 [From Bactrim] trimethoprim [From Bactrim] AdvReac Dizziness Verified 10/14/18 00:44 Consultations 10/14/18 22:48 ED Decision to Admit Stat 10/15/18 00:59 Consult Case Management - Discharge Planning Routine 10/15/18 05:00 Consult Neurology Routine Ordered Studies 10/14/18 21:09 CT head/brain wo con Stat 10/15/18 00:59 MR brain wo/w con Routine US carotid doppler BI Routine Hospital Course (1) Numbness of left hand: Presented to ED with recurrent paresthesiae of LUE and left face. Head CT showed atrophy, small vessel ischemic changes, no acute event. MRI brain showed similar changes. Carotid duplex did not show any significant stenosis. Echo did not show any intracardiac thrombi. History of AF, but currently in NSR. Seen in consultation by Neurology. No evidence of acute stroke. Possibility of migraine considered. Neurology recommended increasing gabapentin to 200 mg HS. Continue aspirin and apixaban. (2) Atrial fibrillation: Currently in NSR. Continue metoprolol and apixaban. (3) History of pulmonary embolism: History of PE. Underlying MTHFR mutation. Continue apixaban and folic acid. (4) Essential hypertension: BP fluctuated. Continue metoprolol and lisinopril. Follow and titrate therapy. 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 (6) DVT prophylaxis: Continue apixaban. (7) Discharge planning issues: Discharge to home. Internal Medicine follow-up with Dr. Plascencia. Neurology follow-up with Dr. Caro. Total Time Total Time Spent Total Time Spent (In Minutes): 40 Discharge Plan Discharge Items Patient Disposition: Home - Self-Care Reason For Visit: numbness left arm Discharge Diagnosis: numbness left arm, no sign of stroke Condition: Good Discharge Goals: Decrease discomfort Activity: Resume your previous activity Non-emergency contact: Primary Care Provider, Hospitalist and Neurologist Call non-emergency contact if: you have any medication questions Diet: Heart Healthy Addtl Provider Instructions: APPOINTMENTS: INTERNAL MEDICINE 10/25/2018 10:20 AM Neo Plascencia MD CARDIOLOGY 10/27/2018 3:00 PM Austin Montesinos DO OTHER INSTRUCTIONS: Seek medical attention if you have: * temperature above 101 * chest pain or trouble breathing * abdominal pain, nausea, vomiting * diarrhea, dark stools or bloody stools * headache, trouble with vision, trouble speaking, weakness in arms or legs, problems with balance * any unanswered questions or concerns Call 911 if symptoms are severe. Call if you have any questions or problems. You can reach a [facility] hospitalist on duty at [facility] 24 hours a day by calling [phone]. Prescriptions: New gabapentin 100 mg capsule 200 mg PO HS Qty: 60 RF: 5 Continue folic acid 1 mg Tablet 1 mg PO QAM Qty: 0 RF: 0 cholecalciferol (vitamin D3) 1,000 unit Capsule 2,000 unit PO QAM Qty: 0 RF: 0 aspirin 81 mg Tablet,Delayed Release (Dr/Ec) 81 mg PO QAM Qty: 0 RF: 0 atorvastatin [Lipitor] 20 mg Tablet 20 mg PO QAM Qty: 0 RF: 0 lisinopril 10 mg Tablet 10 mg PO HS Qty: 0 RF: 0 omeprazole 20 mg Capsule,Delayed Release(Dr/Ec) 20 mg PO QAM Qty: 0 RF: 0 apixaban [Eliquis] 2.5 mg Tablet 2.5 mg PO BID Qty: 0 RF: 0 cyanocobalamin (vitamin B-12) 1,000 mcg Capsule 2,000 mcg PO QAM Qty: 0 RF: 0 metoprolol tartrate 25 mg tablet 25 mg PO BID RF: 0 bimatoprost [Lumigan] 0.01 % Drops 1 drp OPB HS RF: 0 difluprednate 0.05 % drops 1 drp OPL QAM RF: 0 timolol 0.5 % Drops 1 drp OPHTHALMIC (EYE) QAM RF: 0 bromfenac 0.07 % drops 1 drp OPL QAM RF: 0 Discontinued gabapentin [Neurontin] 100 mg Capsule 100 mg PO HS Qty: 0 RF: 0 Visit Report Forms: [facility] Portal Stand-Alone Forms: Medications to Prevent Stroke, [facility] Discharge Orders: Discharge Order (Routine); Ordered 10/15/18 Ordered By: Maximo Frost Admission Data Admit Date/Time: 10/14/18 23:49 Attending Provider: Maxmio Frost Admit Provider: Lukas Gan Primary Care Provider: Neo Plascencia Other Providers: Lukas Gan ; Angela Somers ; Maximo Caro ; Angela Phillip ; Renetta Henriquez ; Rogerio Blunt ; Jada Sharma ; Iain Dorsey Service: Telemetry Other Interventions: Discharge Summary Assessment (RN) Last Done: 10/15/18 18:24 DC Date/Time DO NOT enter until pt leaves facility: 10/15/18 18:53
--- NOTE | 2018-10-18 12:25 | Pharmacy Report ---
Pharmacist Post D/C Phone Note - Phone Note: Date of phone call: October 18, 2018. Individual with whom pharmacist spoke to: JAISON FULLER Spoke with patient who stated she was visiting with family. She requested that we call her back on Thursday - she is there most of the day. She did not want me to call back later on Thursday. Thank you for allowing us to be involved in the care of this patient. - Home Medications: Home Medications Medication Instructions Recorded Confirmed cholecalciferol (vitamin D3) 2,000 unit PO QAM #0 03/21/17 10/14/18 folic acid 1 mg PO QAM #0 03/21/17 10/14/18 aspirin 81 mg PO QAM #0 10/08/17 10/14/18 atorvastatin [Lipitor] 20 mg PO QAM #0 tab 02/11/18 10/14/18 lisinopril 10 mg PO HS #0 02/11/18 10/14/18 omeprazole 20 mg PO QAM #0 02/11/18 10/14/18 apixaban [Eliquis] 2.5 mg PO BID #0 tab 03/29/18 10/14/18 cyanocobalamin (vitamin B-12) 2,000 mcg PO QAM #0 03/29/18 10/14/18 bimatoprost [Lumigan] 1 drp OPB HS 10/11/18 10/14/18 metoprolol tartrate 25 mg PO BID 10/11/18 10/14/18 bromfenac 1 drp OPL QAM 10/15/18 10/15/18 difluprednate 1 drp OPL QAM 10/15/18 10/15/18 timolol 1 drp OPHTHALMIC (EYE) QAM 10/15/18 10/15/18 New Rx's Medication Instructions Recorded gabapentin 200 mg PO HS #60 cap 10/15/18
--- NOTE | 2018-10-20 14:37 | Pharmacy Report ---
Pharmacist Post D/C Phone Note - Phone Note: Date of phone call: October 20, 2018. Individual with whom pharmacist spoke to: JAISON FULLER The following questions were reviewed during the phone call with responses listed below each: Can you tell me the medications that you are currently taking as well as when and how you take each medication? -See Table Below When have you missed any doses of your medications? - NONE What side effects are you having from your medications, specifically, the new medications you were started on? - NONE What questions do you have about your medications? - NONE What problems are you having obtaining your medications? - NONE When is your next appointment with your primary care doctor? - "NEXT WEEK" Additional comments: - N/A As per the Pharmacist Discharge Counseling for Stroke Patients Protocol, this phone call has been completed within 72 hours of discharge. Thank you for allowing us to be involved in the care of this patient. - Home Medications: Home Medications Medication Instructions Recorded Confirmed cholecalciferol (vitamin D3) 2,000 unit PO QAM #0 03/21/17 10/14/18 folic acid 1 mg PO QAM #0 03/21/17 10/14/18 aspirin 81 mg PO QAM #0 10/08/17 10/14/18 atorvastatin [Lipitor] 20 mg PO QAM #0 tab 02/11/18 10/14/18 lisinopril 10 mg PO HS #0 02/11/18 10/14/18 omeprazole 20 mg PO QAM #0 02/11/18 10/14/18 apixaban [Eliquis] 2.5 mg PO BID #0 tab 03/29/18 10/14/18 cyanocobalamin (vitamin B-12) 2,000 mcg PO QAM #0 03/29/18 10/14/18 bimatoprost [Lumigan] 1 drp OPB HS 10/11/18 10/14/18 metoprolol tartrate 25 mg PO BID 10/11/18 10/14/18 bromfenac 1 drp OPL QAM 10/15/18 10/15/18 difluprednate 1 drp OPL QAM 10/15/18 10/15/18 timolol 1 drp OPHTHALMIC (EYE) QAM 10/15/18 10/15/18 New Rx's Medication Instructions Recorded gabapentin 200 mg PO HS #60 cap 10/15/18
== END 2018-10-15 18:53 | disposition home or self-care (01) | DRG 92 ==
LOC: ED 20:07 → 2E 23:49 → SUATTDRO 23:49 → 2E 10-15 00:30

== ENCOUNTER 2019-03-26 13:44 | Inpatient (IN) ==
--- OUTSIDE RECORDS SUMMARY | 2019-03-26 13:47 | External Medical Summary | Continuity of Care Document ---
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 Refills: 0 Folic Acid 1 MG Oral Tablet; TAKE 1 TABLET DAILY. Quantity: 90 Refills: 3 Aspirin 81 MG TABS; TAKE 1 TABLET DAILY. Refills: 0 Atorvastatin Calcium 20 MG Oral Tablet; Take 1 tablet daily Refills: 0 Cyanocobalamin TABS; TAKE 1 TABLET DAILY DIRECTED. Refills: 0 Vaniqa CREA; USE DIRECTED Refills: 0 MiraLax POWD; USE DIRECTED. Refills: 0 Colace 100 MG Oral Capsule; TAKE 1 CAPSULE DAILY. Refills: 0 Vitamin D 1000 UNIT Oral Tablet; TAKE 1 TABLET DAILY. Refills: 0 Multi Vitamin/Minerals TABS; TAKE 1 TABLET DAILY. Refills: 0 Ipratropium Orcas 0.03 % Nasal Solutio n; USE TWO SPRAYS IN EACH NOSTRIL 3 TIMES DAILY NEEDED ROLAN Milner Start: 09-Mar-2019 Quantity: 1 30 ML Bottle Refills: 2 Procedures Procedures not documented Immunizations Immunizations not documented Social History - Smoking Status Never smoker Interventions Medication ChangesIpratropium Orcas 0.03 % Nasal Solution - Start Follow-ups/ReferralsFollow-up visit in 8 months; Done: 09 Mar 2019 Plan of Treatment Planned Observations Planned Goals not documented Results No Known Results Results not documented Vital Signs 09-Mar-2019 9:34 Systolic 153 mm[Hg] Comments: Location: RUE; Diastolic 74 mm[Hg] Comments: Location: RUE; Heart Rate 57 /min Encounters Appointment; Zenia Milner PA-C 24-Mar-2018 8:40 Encounter Diagnosis: Problem not documented Appointment; Zenia Milner PA-C 09-Mar-2019 9:40 Encounter Diagnosis: Problem not documented
[2019-03-26 14:30] LABS: Basophils # (auto) 0.01 K/uL (0-0.2); Basophils % (auto) 0.2 %; Eosinophils # (auto) 0.03 K/uL (0-0.5); Eosinophils % (auto) 0.6 %; Hematocrit (blood only) 37.3 % (37-47); Hemoglobin 12.1 g/dL (12.0-16.0); Immature Granulocytes # (auto) 0.01 K/uL (0.00-0.02); Immature Granulocytes % (auto) 0.2 %; Lymphocytes # (auto) 0.67 K/uL (1.2-3.4); Lymphocytes % (auto) 12.7 %; Mean Corpuscular Hgb Conc 32.4 g/dL (32-36); Mean Corpuscular Volume 89.9 fL (80-100); Mean Platelet Volume 9.8 fL (7.4-10.4); Monocytes # (auto) 0.54 K/uL (0.11-0.59); Monocytes % (auto) 10.2 %; Neutrophils # (auto) 4.03 K/uL (1.4-6.5); Neutrophils % (auto) 76.1 %; Platelet Count 218 K/uL (130-400); RDW Coefficient of Variation 14.5 % (11.5-14.5); RDW Standard Deviation 48.1 fL (36.4-46.3); Red Blood Count 4.15 M/uL (4.2-5.4); White Blood Count 5.29 K/uL (4.8-10.8)
[2019-03-26 14:42] LABS: INR 1.1 (0.9-1.1); Partial Thromboplastin Ratio 0.9; Prothrombin Time 11.3 Seconds (9.0-12.0)
--- NOTE | 2019-03-26 14:46 | CT Scan Report ---
CT head/brain wo con CLINICAL HISTORY: 83 years-old Female presenting with Stroke evaluation. TECHNIQUE: Multidetector CT imaging of the head was performed without the use of intravenous contrast . IV contrast: None. One or more dose lowering techniques were used consistent with the principles of ALARA (as low as reasonably achievable), including automatic exposure control, mA or kV adjustment t o individual patient size, and/or use of iterative reconstruction. COMPARISON: . CT DOSE (mGy.cm): The estimated cumulative dose is 537.48 mGy.cm. FINDINGS: [employer]ia Team [employer] topogram: Unremarkable. Proportional ventricular and sulcal prominence, likely age-related parenchymal volume loss. No hemorr ester. Periventricular and subcortical white matter hypoattenuation, nonspecific but likely indicative of chronic small vessel ischemic change. No acute territorial infarct. No mass effect or midline kobi ft. No extra-axial fluid collection. Paranasal sinuses and mastoid air cells clear. Calvarium intact. IMPRESSION: 1. Chronic small vessel ischemic change. No acute intracranial abnormality. Electronically signed by: Sebastián Person M.D. 03/26/2019 2:44 PM
[2019-03-26 14:54] LABS: Alanine Aminotransferase 21 U/L (12-78); Albumin Level 3.2 gm/dl (3.4-5.0); BUN Creatinine Ratio 35.4 (10-20); Blood Urea Nitrogen 27 mg/dl (7-18); Calcium 8.6 mg/dl (8.5-10.1); Carbon Dioxide 30 mmol/L (21-32); Chloride 106 mmol/L (98-107); Creatinine Clr Calc Pharmacy 40.8 ml/min; Est GFR (African American) 82.9; Est GFR (Non-African American) 71.5; Glucose 118 mg/dl (70-99); Sodium 138 mmol/L (136-145)
[2019-03-26 15:02] LABS: Albumin Globulin Ratio 0.9 (0.9-2); Alkaline Phosphatase 117 U/L (45-117); Bilirubin,Total 0.4 mg/dl (0.2-1); Globulin 3.5 gm/dl (2.5-4.0); Total Protein 6.7 gm/dl (6.4-8.2); Troponin I < 0.015 ng/ml (0-0.045)
[2019-03-26] MEDS ORDERED: ASPIRIN CHEW 324 MG PO STA (16:04)
--- NOTE | 2019-03-26 16:04 | Emergency Department Note ---
Entered by Angelina Galaviz acting as a scribe for Gentry Clark History of Present Illness General Chief complaint: Stroke/CVA Symptoms Stated complaint: TIA AROUND 1 PM Time Seen by Provider: 03/26/19 14:04 Source: patient Mode of arrival: ambulatory Limitations: no limitations History of Present Illness Onset (ago): hour(s) (1200) Location: head (CVA symptoms) and upper extremity Pain Consistency: + other (episode) Quality: + other (numbness) Exacerbated By: + other (numbness) Associated symptoms: + other (The patient complains of numbness in her left arm. ) The patient is an 83 year old female with a history of stroke who presents to the ED with complaints of an episode of stoke symptoms that onset at 1200. The patient presents with her family. The patient complains of numbness in her left arm that lasted for approximately 5 minutes. She states that she dropped an obje ct she was holding when the numbness onset. The patient notes that her symptoms have since resolved. She reports that she had a stroke last week in her left eye. 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 She states that two weeks ago, her vision declined significantly in her left eye after another TIA. Home Medications Home Medications Medication Instructions Recorded Confirmed Type cholecalciferol (vitamin D3) 2,000 unit PO QAM #0 03/21/17 03/26/19 History folic acid 1 mg PO QAM #0 03/21/17 03/26/19 History aspirin 81 mg PO QAM #0 10/08/17 03/26/19 History atorvastatin [Lipitor] 20 mg PO QAM #0 tab 02/11/18 03/26/19 History lisinopril 10 mg PO HS #0 02/11/18 03/26/19 History omeprazole 20 mg PO QAM #0 02/11/18 03/26/19 History Eliquis 2.5 mg PO BID #0 tab 03/29/18 03/26/19 History cyanocobalamin (vitamin B-12) 2,000 mcg PO QAM #0 03/29/18 03/26/19 History Lumigan 1 drp OPB HS 10/11/18 03/26/19 History metoprolol tartrate 25 mg PO BID 10/11/18 03/26/19 History gabapentin 200 mg PO HS #60 cap 10/15/18 03/26/19 Rx ipratropium bromide 1 spray INTRANASAL DAILY 03/26/19 03/26/19 History levothyroxine [Synthroid] 75 mcg PO QAM 03/26/19 03/26/19 History timolol maleate 1 drp OPB DAILY 03/26/19 03/26/19 History Allergies Allergy/AdvReac Type Severity Reaction Status Date / Time tetanus toxoid, adsorbed Allergy Mild SWELLING Verified 03/26/19 14:55 AND REDNESS sulfamethoxazole AdvReac Dizziness Verified 03/26/19 14:55 [From Bactrim] trimethoprim [From Bactrim] AdvReac Dizziness Verified 03/26/19 14:55 Past Med/Surg History Medical History History of osteoporosis (Chronic) TIA (transient ischemic attack) (Chronic) Uterine prolapse (Chronic) Hx of MTHFR mutation (Chronic) Atrial fibrillation (Chronic) History of breast cancer (Chronic) "intraductal carcinoma left breast, s/p lumpectomy" Small bowel obstruction (Resolved) History of pulmonary embolism (Chronic) UGIB (upper gastrointestinal bleed) (Resolved) Preoperative cardiovascular examination (Resolved) DVT prophylaxis Atrial fibrillation with RVR (Resolved) SBO (small bowel obstruction) (Resolved) GERD (gastroesophageal reflux disease) HTN (hypertension) History of breast cancer s/p lumpectomy + chemo/radiation History of hysterectomy Hx of deep venous thrombosis Hyperlipidemia Incontinent of urine Nausea and vomiting after administration of anesthetic agent Osteoporosis Paroxysmal atrial fibrillation dx within the past year - follows w/ dr. arteaga SBO (small bowel obstruction) TIA (transient ischemic attack) multiple. believes most recent TIA 4-5 months ago. follows w/ dr. moss Thyroid cancer dx 1 week ago - plan of care to be determined Surgical History Status post hysterectomy (Chronic) Status post partial mastectomy (Chronic) "left breast, DCIS" History of bladder surgery (Chronic) History of hysterectomy (Chronic) S/P exploratory laparotomy (Chronic) History of colonoscopy History of esophagogastroduodenoscopy (EGD) History of intestinal surgery History of total abdominal hysterectomy and bilateral salpingo-oophorectomy Hx of exploratory laparotomy Hx of lumpectomy rt breast Status post biopsy of thyroid gland Family History Other No significant family history Social History Preferred Language: Micronesian Communication Ability: Effective Visual Impairment: Limited Hearing Ability: Normal Beliefs That Will Affect Care: None Current Living Situation: Alone Feels Safe at Home: Yes Smoking Status: Never smoker Second Hand Exposure: No Hx Alcohol Use: No Hx Substance Use: No Review of Systems See HPI for pertinent positives & negatives. and A total of 10 systems reviewed and were otherwise negative Physical Exam Vital Signs Vital Signs - 24 hr 03/26/19 13:45 03/26/19 14:09 03/26/19 14:30 Temperature 36.7 C Temperature Source Oral Sepsis Recent Fever Within 48 Hours No Sepsis New/Unexplained Change in Mental Status No Sepsis Action Taken by Nursing No Action Required Pulse Rate 61 63 60 Pulse Rate from SpO2 Sensor Respiratory Rate 20 25 H 18 Blood Pressure 117/66 Blood Pressure Mean 83 Pulse Oximetry 97 97 98 Oxygen Delivery Method Room Air Room Air Room Air 03/26/19 15:00 03/26/19 15:28 03/26/19 15:30 Temperature Temperature Source Sepsis Recent Fever Within 48 Hours Sepsis New/Unexplained Change in Mental Status Sepsis Action Taken by Nursing Pulse Rate 61 60 60 Pulse Rate from SpO2 Sensor 60 59 L Respiratory Rate 18 20 22 Blood Pressure 124/57 L Blood Pressure Mean 79 Pulse Oximetry 99 98 96 Oxygen Delivery Method Room Air Room Air Room Air GENERAL: She is oriented to person, place, and time. She appears well-developed and well-nourished. She does not appear distressed. HENT: Exam performed. Head: Normocephalic and atraumatic. Right Ear: External ear normal. No mastoid tenderness. Left Ear: External ear normal. No mastoid tenderness. Mouth/Throat: The oropharynx is clear and moist. No trismus in the jaw. No dental abscesses or uvula swelling. No oropharyngeal exudate or tonsillar abscesses. EYES: Conjunctivae and EOM are normal. Pupils are equal, round, and reactive to light. Right eye exhibits no discharge. Left eye exhibits no discharge. No s cleral icterus. Decreased vision in bilateral eyes at baseline per family. Patient is blind in the right eye due to a prior stoke. NECK: Normal range of motion. Neck supple. No JVD present. No spinous process tenderness present. No carotid bruit present. No rigidity. No tracheal deviation and normal range of motion present. No Brudzinski's sign and no Kernig's sign noted. CV: Normal rate, regular rhythm, normal heart sounds and intact distal pulses. There is no peripheral edema. Palpable radial pulses bue. PULM/CHEST: Effort normal and breath sounds normal. No respiratory distress. No stridor. She has no wheezes. She has no rales. Chest Wall: She exhibits no tenderness. ABD: The abdomen is soft. Bowel sounds are normal. She has no distension. No mass is present. There is no tenderness. There is no rebound, no guarding, no Romero's sign and no tenderness at McBurney's point. Rovsig negative MUSC/SKEL: Normal range of motion. There is no peripheral edema, tenderness or deformity. LYMPH: No cervical adenopathy. NEURO: She is alert and oriented to person, place, and time. She has normal strength. No cranial nerve deficit or sensory deficit. Coordination and gait normal. GCS eye subscore is 4. GCS verbal subscore is 5. GCS motor subscore is 6. cerbellar tests wnl. SKIN: Skin is warm and dry. She is not diaphoretic. PSYCH: She has a normal mood and affect. Her behavior is normal. Judgment and thought content normal. Course 1406: Past medical records reviewed. The patient was evaluated in room C06. A complete history and physical examination was performed. Patient's acute neurological symptoms have resolved, therefore no stroke alert will be called. Patient has had vision problems in her right eye since her previous stroke in her left eye for the last 2 weeks. These are not acute. It is thought that the patient could be suffering more from a TIA. CT scan and lab work will be obtained. 1515: Vital signs stable. CT of the head within normal limits. Patient continues to display no upper extremity weakness or paresthesias. Patient will be admitted to the [facility] service for TIA. I reviewed the patient's case with Dr. Sunita Manrique. He will evaluate the patient for further management. Consultations Consultation #1: 1515: I reviewed the patient's case with Dr. Sunita Manrique. He will evaluate the patient for further management. Time: 15:15 Medical Decision Making Differential Diagnosis Differential diagnoses: Ischemic Stroke, hemorrhagic stroke, bells palsy, mass, neoplasm, migraine headache, seizure, subarachnoid hemorrhage, TIA, and transient global amnesia. Medical Records Attestation: I reviewed the patient's medical records. Home Medications Current Medication List: was personally reviewed by me Laboratory Data Attestation: I reviewed the patient's lab results. Result diagrams: 03/26/19 14:16 03/26/19 14:16 Lab Results 03/26/19 03/26/19 03/26/19 Range/Units 14:16 14:16 14:16 WBC 5.29 (4.8-10.8) K/uL RBC 4.15 L (4.2-5.4) M/uL Hgb 12.1 (12.0-16.0) g/dL Hct 37.3 (37-47) % MCV 89.9 (80-100) fL MCH 29.2 (25-34) pg MCHC 32.4 (32-36) g/dL RDW Std Deviation 48.1 H (36.4-46.3) fL RDW Coeff of Bassem 14.5 (11.5-14.5) % Plt Count 218 (130-400) K/uL MPV 9.8 (7.4-10.4) fL Immature Gran % (Auto) 0.2 % Neut % (Auto) 76.1 % Lymph % (Auto) 12.7 % Evangeline % (Auto) 10.2 % Eos % (Auto) 0.6 % Baso % (Auto) 0.2 % Immature Gran # (Auto) 0.01 (0.00-0.02) K/uL Neut # (Auto) 4.03 (1.4-6.5) K/uL Lymph # (Auto) 0.67 L (1.2-3.4) K/uL Evangeline # (Auto) 0.54 (0.11-0.59) K/uL Eos # (Auto) 0.03 (0-0.5) K/uL Baso # (Auto) 0.01 (0-0.2) K/uL PT 11.3 (9.0-12.0) Seconds INR 1.1 (0.9-1.1) APTT 25.0 (21.0-31.0) Seconds PTT Ratio 0.9 Sodium 138 (136-145) mmol/L Potassium TNP Chloride 106 (98-107) mmol/L Carbon Dioxide 30 (21-32) mmol/L Anion Gap 2.0 L (3-11) BUN 27 H (7-18) mg/dl Creatinine 0.76 (0.6-1.2) mg/dl Est Cr Clr Drug Dosing 40.8 ml/min Est GFR ( Amer) 82.9 Est GFR (Non-Af Amer) 71.5 BUN/Creatinine Ratio 35.4 H (10-20) Glucose 118 H (70-99) mg/dl Calcium 8.6 (8.5-10.1) mg/dl Magnesium TNP Total Bilirubin 0.4 (0.2-1) mg/dl AST TNP ALT 21 (12-78) U/L Alkaline Phosphatase 117 (45-117) U/L Troponin I < 0.015 (0-0.045) ng/ml Total Protein 6.7 (6.4-8.2) gm/dl Albumin 3.2 L (3.4-5.0) gm/dl Globulin 3.5 (2.5-4.0) gm/dl Albumin/Globulin Ratio 0.9 (0.9-2) Blood Type Antibody Screen 03/26/19 Range/Units 14:23 WBC (4.8-10.8) K/uL RBC (4.2-5.4) M/uL Hgb (12.0-16.0) g/dL Hct (37-47) % MCV (80-100) fL MCH (25-34) pg MCHC (32-36) g/dL RDW Std Deviation (36.4-46.3) fL RDW Coeff of Bassem (11.5-14.5) % Plt Count (130-400) K/uL MPV (7.4-10.4) fL Immature Gran % (Auto) % Neut % (Auto) % Lymph % (Auto) % Evangeline % (Auto) % Eos % (Auto) % Baso % (Auto) % Immature Gran # (Auto) (0.00-0.02) K/uL Neut # (Auto) (1.4-6.5) K/uL Lymph # (Auto) (1.2-3.4) K/uL Evangeline # (Auto) (0.11-0.59) K/uL Eos # (Auto) (0-0.5) K/uL Baso # (Auto) (0-0.2) K/uL PT (9.0-12.0) Seconds INR (0.9-1.1) APTT (21.0-31.0) Seconds PTT Ratio Sodium (136-145) mmol/L Potassium Chloride (98-107) mmol/L Carbon Dioxide (21-32) mmol/L Anion Gap (3-11) BUN (7-18) mg/dl Creatinine (0.6-1.2) mg/dl Est Cr Clr Drug Dosing ml/min Est GFR ( Amer) Est GFR (Non-Af Amer) BUN/Creatinine Ratio (10-20) Glucose (70-99) mg/dl Calcium (8.5-10.1) mg/dl Magnesium Total Bilirubin (0.2-1) mg/dl AST ALT (12-78) U/L Alkaline Phosphatase (45-117) U/L Troponin I (0-0.045) ng/ml Total Protein (6.4-8.2) gm/dl Albumin (3.4-5.0) gm/dl Globulin (2.5-4.0) gm/dl Albumin/Globulin Ratio (0.9-2) Blood Type O Positive Antibody Screen NEGATIVE Imaging Data Radiologist's Impression: Radiology results as stated below per my review and the radiologist's interpretation: CT head/brain wo con CLINICAL HISTORY: 83 years-old Female presenting with Stroke evaluation. TECHNIQUE: Multidetector CT imaging of the head was performed without the use of intravenous contrast. IV contrast: None. One or more dose lowering techniques were used consistent with the principles of ALARA (as low as reasonably achie vable), including automatic exposure control, mA or kV adjustment to individual patient size, and/or use of iterative reconstruction. COMPARISON: . CT DOSE (mGy.cm): The estimated cumulative dose is 537.48 mGy.cm. FINDINGS: [employer] topogram: Unremarkable. Proportional ventricular and sulcal prominence, likely age-related parenchymal volume loss. No hemorrhage. Periventricular and subcortical white matter hypoattenuation, nonspecific but likely indicative of chronic small vessel ischemic change. No acute territorial infarct. No mass effect or midline shift. No extra-axial fluid collection. Paranasal sinuses and mastoid air cells clear. Calvarium intact. IMPRESSION: 1. Chronic small vessel ischemic change. No acute intracranial abnormality. Electronically signed by: Sebastián Person M.D. 03/26/2019 2:44 PM Dictated: 03/26/19 1441 Transcribed: 03/26/19 1441 ECG Data Attestation: I personally reviewed and interpreted this ECG as follows: Indication: other (Stroke symtpoms) Rate (beats per minute): 64 Rhythm: sinus rhythm Findings: + other (OH, QRS, and QTC within normal limits); no ST depression and no ST elevation Blood Pressure Blood Pressure Findings: Normal blood pressure MDM Narrative 1406: Past medical records reviewed. The patient was evaluated in room C06. A complete history and physical examination was performed. Patient's acute n eurological symptoms have resolved, therefore no stroke alert will be called. Patient has had vision problems in her right eye since her previous stroke in her left eye for the last 2 weeks. These are not acute. It is thought that the patient could be suffering more from a TIA. CT scan and lab work will be obtained. 1515: Vital signs stable. CT of the head within normal limits. Patient cont inues to display no upper extremity weakness or paresthesias. Patient will be admitted to the [facility] service for TIA. I reviewed the patient's case with Dr. Dorsey Hospitalist - [facility]. He will evaluate the patient for further management. Impression & Plan TIA (transient ischemic attack) Discharge Plan Visit Data Chief Complaint: Stroke/CVA Symptoms Stated Complaint: TIA AROUND 1 PM ED Provider: Gentry Clark Discharge Problem: TIA (transient ischemic attack) Patient Disposition: Being Evaluated by Hospitalist Forms Stand Alone Forms: My [facility] Prescriptions Prescriptions: No Action folic acid 1 mg Tablet 1 mg PO QAM Qty: 0 RF: 0 cholecalciferol (vitamin D3) 1,000 unit Capsule 2,000 unit PO QAM Qty: 0 RF: 0 aspirin 81 mg Tablet,Delayed Release (Dr/Ec) 81 mg PO QAM Qty: 0 RF: 0 atorvastatin [Lipitor] 20 mg Tablet 20 mg PO QAM Qty: 0 RF: 0 lisinopril 10 mg Tablet 10 mg PO HS Qty: 0 RF: 0 omeprazole 20 mg Capsule,Delayed Release(Dr/Ec) 20 mg PO QAM Qty: 0 RF: 0 Eliquis 2.5 mg Tablet 2.5 mg PO BID Qty: 0 RF: 0 cyanocobalamin (vitamin B-12) 1,000 mcg Capsule 2,000 mcg PO QAM Qty: 0 RF: 0 metoprolol tartrate 25 mg tablet 25 mg PO BID RF: 0 Lumigan 0.01 % Drops 1 drp OPB HS RF: 0 gabapentin 100 mg capsule 200 mg PO HS Qty: 60 RF: 5 levothyroxine [Synthroid] 75 mcg tablet 75 mcg PO QAM RF: 0 timolol maleate 0.5 % drops 1 drp OPB DAILY RF: 0 ipratropium bromide 0.03 % spray,non-aerosol 1 spray intranasal DAILY RF: 0 Referrals Referrals: Neo Plascencia MD [Primary Care Provider] - The scribe's documentation has been prepared under my direction and personally reviewed by me in its entirety. I confirm that the note above accurately reflects all work, treatment, procedures, and medical decision making performed by me.
[2019-03-26 16:22] LABS: Potassium 3.7 mmol/L (3.5-5.1)
[2019-03-26 16:27] LABS: Magnesium 1.8 mg/dl (1.8-2.4)
[2019-03-26] MEDS ORDERED: PHARMACIST DISCHARGE MED REC CONSULT PRN (17:09)
[2019-03-26] MEDS ORDERED: ACETAMINOPHEN 325 MG TAB PO PRN (17:09)
--- NOTE | 2019-03-26 19:10 | History & Physical Report ---
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 with similar symptoms -Symptoms have resolved -In the ED, head CT negative for acute findings -Received full dose aspirin in the ED; continue with baby aspirin, Eliquis, statin -Brain MRI -Neurochecks -Permissive hypertension -Carotid Doppler 09/2018 negative for significant stenosis; echo 09/2018 EF 60 to 55%, grade 2 diastolic dysfunction, mild to moderate mitral regurgitation, mild tricuspid regurgitation; will not repeat the studies at this time -Neurology consult, input appreciated (2) Vision problems: -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 -Over the past couple of weeks, has been having increasing visual difficulties of the left eye; has been followed with outpatient hydraulic technician and has an appoint with retinal specialist next week -No acute worsening of vision with episode today (3) Atrial fibrillation: -Currently in NSR -Rate controlled on metoprolol, will continue -Anticoagulated on Eliquis, will continue (4) HTN (hypertension): -BP intermittently elevated, allowing for permissive hypertension in the setting of possible CVA -Continuing home doses of lisinopril and metoprolol (5) Hx of MTHFR mutation: (6) History of pulmonary embolism: -Continue Eliquis (7) DVT prophylaxis: -On Eliquis History of Present Illness Chief Complaint: Left arm numbness, left hand weakness Primary Care Provider: Neo Plascencia MD 83-year-old female who presents to the ED with left upper extremity numbness and left hand weakness. 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 Patient reports she was holding onto a bag of cody when she developed left upper extremity numbness and drop the bones on the floor. She reports that she was unable to pick the bounce back up off the floor. She was able to move her arm however had significant weakness in her left hand. Symptoms lasted for about 10 minutes and then resolved on their own. 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 She has been having worsening vision of the left eye over the past couple of weeks and has been evaluated by her outpatient hydraulic technician. Patient reports she has an appointment with the retinal specialist next week. She reports no acute worsening of her vision today. Patient denies chest pain shortness of breath. No lightheadedness, dizziness, diaphoresis, syncopal events. She denies headache and double vision. No abdominal pain, nausea, vomiting, diarrhea. She denies other recent illnesses, fevers, chills. No urinary symptoms. In the ED, patient's labs are unremarkable and CT head is negative for acute findings. She was given a full dose aspirin. Allergies Allergy/AdvReac Type Severity Reaction Status Date / Time tetanus toxoid, adsorbed Allergy Mild SWELLING Verified 03/26/19 14:55 AND REDNESS sulfamethoxazole AdvReac Dizziness Verified 03/26/19 14:55 [From Bactrim] trimethoprim [From Bactrim] AdvReac Dizziness Verified 03/26/19 14:55 Home Medications Home Medications Medication Instructions Recorded Confirmed Type cholecalciferol (vitamin D3) 2,000 unit PO QAM #0 03/21/17 03/26/19 History folic acid 1 mg PO QAM #0 03/21/17 03/26/19 History aspirin 81 mg PO QAM #0 10/08/17 03/26/19 History atorvastatin [Lipitor] 20 mg PO QAM #0 tab 02/11/18 03/26/19 History lisinopril 10 mg PO HS #0 02/11/18 03/26/19 History omeprazole 20 mg PO QAM #0 02/11/18 03/26/19 History Eliquis 2.5 mg PO BID #0 tab 03/29/18 03/26/19 History cyanocobalamin (vitamin B-12) 2,000 mcg PO QAM #0 03/29/18 03/26/19 History Lumigan 1 drp OPB HS 10/11/18 03/26/19 History metoprolol tartrate 25 mg PO BID 10/11/18 03/26/19 History gabapentin 200 mg PO HS #60 cap 10/15/18 03/26/19 Rx ipratropium bromide 2 spray INTRANASAL TID PRN 03/26/19 03/26/19 History levothyroxine [Synthroid] 75 mcg PO QAM 03/26/19 03/26/19 History gmqgddym-vhh-njwu-FA-lutein 1 tab PO DAILY 06/08/19 06/08/19 History [Centrum Silver Women] timolol maleate 1 drp OPB DAILY 03/26/19 03/26/19 History Past Med/Surg History Medical History Central retinal vein occlusion of right eye (Chronic) Dyslipidemia (Chronic) HTN (hypertension) (Chronic) Papillary carcinoma of thyroid (Chronic) History of osteoporosis (Chronic) TIA (transient ischemic attack) (Chronic) Uterine prolapse (Chronic) Hx of MTHFR mutation (Chronic) Atrial fibrillation (Chronic) History of breast cancer (Chronic) "intraductal carcinoma left breast, s/p lumpectomy" Small bowel obstruction (Resolved) History of pulmonary embolism (Chronic) UGIB (upper gastrointestinal bleed) (Resolved) Atrial fibrillation with RVR (Resolved) SBO (small bowel obstruction) (Resolved) Surgical History H/O oophorectomy (Chronic) History of cataract surgery (Chronic) Status post partial mastectomy (Chronic) "left breast, DCIS" History of bladder surgery (Chronic) History of hysterectomy (Chronic) S/P exploratory laparotomy (Chronic) lysis of adhesions Family History Father Stroke Social History Preferred Language: Wolof Communication Ability: Impaired Visual Impairment: Limited Hearing Ability: Normal Beliefs That Will Affect Care: None Current Living Situation: Alone Current Living Situation Comment: One daughter lives next door to patient Other Information That Helps Us Care for You: No Feels Safe at Home: Yes Safety Concerns: Feels Safe At This Time Smoking Status: Never smoker Second Hand Exposure: No Hx Alcohol Use: No Hx Substance Use: No Review of Systems Review of Systems: ROS per HPI, all other systems reviewed and negative Physical Exam Constitutional: WD/WN, vitals as above Eyes: PERRL, conjunctivae normal, anicteric sclerae Poor vision ENMT: external ear and nose normal, oropharynx normal Respiratory: normal respiratory effort, lungs clear to auscultation Cardiovascular: Rate/Rhythm: regular rate and regular rhythm Vessels: normal peripheral pulses Extremities: no edema Gastrointestinal (Abdomen): normal bowel sounds, soft, nontender, no hepatosplenomegaly Musculoskeletal: no cyanosis or clubbing, extremities motor strength 5/5 Skin: no rashes, warm and dry Neurologic: PERRL, EOMI, accommodation nl, no face palsy, no dysarthria moves all extremities and awake; no focal motor deficits Motor/Sensory: no pronator drift Cranial Nerves: tongue midline Coordination: normal [id number] test (Has some difficulty seeing finger secondary to poor vision, able to touch nose without difficulty) and normal nwyy-bi-[id number] test Psychiatric: A+Ox3, euthymic affect Results & Data Vital Signs (Past 12 Hours) Vital Signs Temp Pulse Pulse Resp BP BP Pulse Ox 03/26/19 17:19 36.8 C 65 18 181/95 H 98 03/26/19 16:30 66 16 03/26/19 16:01 63 16 141/71 H 99 03/26/19 16:00 65 15 98 03/26/19 15:30 60 22 96 03/26/19 15:28 60 20 124/57 L 98 03/26/19 15:00 61 18 99 03/26/19 14:30 60 18 98 03/26/19 14:09 63 25 H 97 03/26/19 13:45 36.7 C 61 20 117/66 97 Laboratory Results Short CBC 03/26/19 Range/Units 14:16 WBC 5.29 (4.8-10.8) K/uL Hgb 12.1 (12.0-16.0) g/dL Hct 37.3 (37-47) % Plt Count 218 (130-400) K/uL BMP 03/26/19 03/26/19 14:16 15:53 Sodium 138 Potassium TNP 3.7 Chloride 106 Carbon Dioxide 30 BUN 27 H Creatinine 0.76 Glucose 118 H Calcium 8.6 Cardiac Enzymes 03/26/19 Range/Units 14:16 Troponin I < 0.015 (0-0.045) ng/ml Liver Function 03/26/19 03/26/19 Range/Units 14:16 15:53 Total Bilirubin 0.4 (0.2-1) mg/dl AST TNP 16 ALT 21 (12-78) U/L Alkaline Phosphatase 117 (45-117) U/L Albumin 3.2 L (3.4-5.0) gm/dl Diagnostic Findings HEAD CT IMPRESSION: 1. Chronic small vessel ischemic change. No acute intracranial abnormality. Code Status & VTE Plan Code Status Patient is a DNR as per my discussion with her. VTE Prophylaxis Plan VTE Prophylaxis will be ordered: Yes Supervising Physician Co-Signing Physician Notes Patient is an 82-year-old female with history of multiple TIAs, right retinal vein occlusion, dyslipidemia, hypertension, atrial fibrillation and other problems presents with history of left upper extremity numbness associated with weakness. She states that symptoms lasted only for a few minutes and currently the symptoms resolved while in ED. Please review HPI for complete details of presentation. CT head shows chronic small vessel ischemic change. No acute intracranial abnormality. Patient is aspirin, statin, Eliquis. She is currently plan to be evaluated by her hydraulic technician as outpatient. On exam patient is moderately built and nourished, thin frail, no apparent distress, lungs clear to auscultation, S1-S2, murmur, right eye visual loss, grossly no other focal neurological deficits. Patient is admitted for further evaluation of strokelike symptoms likely TIA. Will check MRI brain. Also check neurochec ks, consulted neurology. Needs ophthalmology evaluation as outpatient. I personally reviewed the record. Patient is interviewed and examined at bedside. Patient's care is coordinated with Kamila Julien CORRECTIONS SPECIALIST. Please refer to the documentation above for details of patient's presentation and for discussion of other issues.
[2019-03-26] MEDS: METOPROLOL TARTRATE 25 MG TAB PO SCH (20:31)
[2019-03-26] MEDS: APIXABAN 2.5 MG TAB PO SCH (20:31)
[2019-03-26] MEDS ORDERED: BIMATOPROST 0.01% OP SOLN 2.5 ML BTL OPB SCH (21:00)
[2019-03-26] MEDS ORDERED: LISINOPRIL 10 MG TAB PO SCH (21:00)
[2019-03-26] MEDS ORDERED: GABAPENTIN 100 MG CAP PO SCH (21:00)
[2019-03-27 05:58] LABS: Basophils # (auto) 0.02 K/uL (0-0.2); Basophils % (auto) 0.3 %; Eosinophils # (auto) 0.11 K/uL (0-0.5); Eosinophils % (auto) 1.7 %; Hemoglobin 12.6 g/dL (12.0-16.0); Immature Granulocytes # (auto) 0.01 K/uL (0.00-0.02); Immature Granulocytes % (auto) 0.2 %; Lymphocytes # (auto) 1.08 K/uL (1.2-3.4); Lymphocytes % (auto) 16.6 %; Mean Corpuscular Hgb Conc 33.2 g/dL (32-36); Mean Corpuscular Volume 89.8 fL (80-100); Mean Platelet Volume 9.6 fL (7.4-10.4); Monocytes # (auto) 0.69 K/uL (0.11-0.59); Monocytes % (auto) 10.6 %; Neutrophils # (auto) 4.58 K/uL (1.4-6.5); Neutrophils % (auto) 70.6 %; Platelet Count 202 K/uL (130-400); RDW Coefficient of Variation 14.3 % (11.5-14.5); RDW Standard Deviation 47.3 fL (36.4-46.3); Red Blood Count 4.23 M/uL (4.2-5.4); White Blood Count 6.49 K/uL (4.8-10.8)
[2019-03-27] MEDS ORDERED: LEVOTHYROXINE SODIUM 75 MCG TABLET PO SCH (06:30)
[2019-03-27 06:32] LABS: BUN Creatinine Ratio 35.7 (10-20); Calcium 8.9 mg/dl (8.5-10.1); Creatinine Clr Calc Pharmacy 50.1 ml/min; Est GFR (African American) 95.3; Est GFR (Non-African American) 82.2; Potassium 3.8 mmol/L (3.5-5.1)
[2019-03-27] MEDS: APIXABAN 2.5 MG TAB PO SCH (08:26)
[2019-03-27] MEDS: METOPROLOL TARTRATE 25 MG TAB PO SCH (08:28)
--- NOTE | 2019-03-27 08:37 | Neurology Consultation ---
Date of Consultation March 27, 2019 Assessment & Plan (1) Numbness of left hand: Ms. Johnson is a pleasant 83 year old woman with history of recurrent episodes of left upper extremity numbness, history of Afib on Eliquis and history of retinal vein occlussion with loss of vision in right eye admitted for similar episode of brief left hand numbness and weakness which has now resolved. CT head negative for acute findings. Symptoms resolved by the time patient evelauted in the ED. She has had loss of vision in left eye with history of cataracts and is schedule to see ophthalmology this week. - Unclear etiology of this recurrent episode of left hand weakness and numbness. She has been evaluated in the past with EEG and CTA. Previous episodes have been negative for acute stroke. Last episode in 09/2018. DDx: Carpal tunnel syndrome Vs Compensation f previous CVA Vs Functional. I do not believe these are TIA's. - Recommend MRI brain and MRA head and neck imaging. MRA to evaluate for carotid disease given her history and loss of vision in left eye. - Recommend to continue home medications - Blood pressures elevated since admission. Goal blood pressure SBP>140, DBP<90 mm Hg. Ok to discharge after MRI imaging if no acute or significant findings. Patient requeting to be discharged to home today. She can follow up with Dr. Caro. History of Present Illness Attending Physician: Loli Summers, History of Present Illness An 83 year old woman well known to [facility] neurology practice with a history of hyperlipidemia, chronic back pain, breast cancer, paroxysmal atrial fibrillation on ELiquis, "multiple TIAs," hypertension, central retinal vein occlusion on the right, recent diagnosis of papillary thyroid carcinoma, presented with episode of left hand weakness/numbness and face numbness. Symptoms lasted aboute 10 minutes. She was admitted for similar symptoms in 2017. She may have had a mild headache associated with one of the episodes were following. These episodes have been recurrent over time. She is on Eliquis & aspirin. Evaulation in the past has included EEG, CTA were unremarkable. In the ED, patient's labs are unremarkable and CT head is negative for acute findings. She was given a full dose aspirin. This morning she is awake in chair and anxiusly hoping to go home. She has not had her MRI brain yet. Reports symptoms have resolved. Although concerned for her loss of vision in her left eye. She is scheduling to see ophthalmogy on thursday. She has had cataracts in left eye she reports. She denies numbness in left arm now. Reports yesterday had numbness and weakness only in left arm. No facial symptoms or slurred speech. Reports compliance with ASA and elqiuis. Allergies Allergy/AdvReac Type Severity Reaction Status Date / Time tetanus toxoid, adsorbed Allergy Mild SWELLING Verified 03/26/19 14:55 AND REDNESS sulfamethoxazole AdvReac Dizziness Verified 03/26/19 14:55 [From Bactrim] trimethoprim [From Bactrim] AdvReac Dizziness Verified 03/26/19 14:55 Home Medications Home Medications Medication Instructions Recorded Confirmed Type cholecalciferol (vitamin D3) 2,000 unit PO QAM #0 03/21/17 03/26/19 History folic acid 1 mg PO QAM #0 03/21/17 03/26/19 History aspirin 81 mg PO QAM #0 10/08/17 03/26/19 History atorvastatin [Lipitor] 20 mg PO QAM #0 tab 02/11/18 03/26/19 History lisinopril 10 mg PO HS #0 02/11/18 03/26/19 History omeprazole 20 mg PO QAM #0 02/11/18 03/26/19 History Eliquis 2.5 mg PO BID #0 tab 03/29/18 03/26/19 History cyanocobalamin (vitamin B-12) 2,000 mcg PO QAM #0 03/29/18 03/26/19 History Lumigan 1 drp OPB HS 10/11/18 03/26/19 History metoprolol tartrate 25 mg PO BID 10/11/18 03/26/19 History gabapentin 200 mg PO HS #60 cap 10/15/18 03/26/19 Rx ipratropium bromide 2 spray INTRANASAL TID PRN 03/26/19 03/26/19 History levothyroxine [Synthroid] 75 mcg PO QAM 03/26/19 03/26/19 History bazywybq-zoc-rftf-FA-lutein 1 tab PO DAILY 03/26/19 03/26/19 History [Centrum Silver Women] timolol maleate 1 drp OPB DAILY 03/26/19 03/26/19 History Patient History Medical History Central retinal vein occlusion of right eye (Chronic) Dyslipidemia (Chronic) HTN (hypertension) (Chronic) Papillary carcinoma of thyroid (Chronic) History of osteoporosis (Chronic) TIA (transient ischemic attack) (Chronic) Uterine prolapse (Chronic) Hx of MTHFR mutation (Chronic) Atrial fibrillation (Chronic) History of breast cancer (Chronic) "intraductal carcinoma left breast, s/p lumpectomy" Small bowel obstruction (Resolved) History of pulmonary embolism (Chronic) UGIB (upper gastrointestinal bleed) (Resolved) Atrial fibrillation with RVR (Resolved) SBO (small bowel obstruction) (Resolved) Surgical History H/O oophorectomy (Chronic) History of cataract surgery (Chronic) Status post partial mastectomy (Chronic) "left breast, DCIS" History of bladder surgery (Chronic) History of hysterectomy (Chronic) S/P exploratory laparotomy (Chronic) lysis of adhesions Family History Father Stroke Social History Preferred Language: Upper Sorbian Communication Ability: Impaired Visual Impairment: Limited Hearing Ability: Normal Beliefs That Will Affect Care: None Current Living Situation: Alone Current Living Situation Comment: One daughter lives next door to patient Other Information That Helps Us Care for You: No Feels Safe at Home: Yes Safety Concerns: Feels Safe At This Time Smoking Status: Never smoker Second Hand Exposure: No Hx Alcohol Use: No Hx Substance Use: No Physical Exam Physical Exam: EXAM: Constitutional: appearance normally developed, no distress, sitting in chair Head and Face: normocephalic and atraumatic Neck: supple Respiratory: normal effort Cardiovascular: normal pulses Abdomen: non distended Skin: no rashes, lesions, or ulcers noted Psychiatric: appears anxious NEUROLOGIC EXAMINATION: Appearance: no acute distress Orientation: awake, alert and oriented x 3 Mental Status: alert Memory: Poor Attention: decerased Knowledge: Poor Language: no aphasia Speech: no dysarthria Cranial Nerves: CN 2 - los of visual acuity in both eye, left pupil is pinpoint and minimally reactive CN 3, 4, 6 - right eye ptosis >left, EOMI limited in upgaze CN 5 - facial sensation intact CN 7 - no facial asymmetry CN 8 - intact hearing CN 9, 10 - palate symmetric CN 11 - good shoulder shrug CN 12 - tongue midline Gait: deferred Coordination: no ataxia with finger to nose testing , no tremor Sensory: intact to light touch, no graphesia in left hand Muscle Tone: normal Muscle exam: No focal weakness, hand cable mechanic is symmetri Reflexes: Negative freedman, no clonus Results & Data Vital Signs (Past 12 Hours) Vital Signs Temp Pulse Pulse Resp BP Pulse Ox 03/27/19 07:41 36.5 C 67 18 163/89 H 95 03/27/19 03:42 36.3 C L 55 L 17 175/95 H 95 03/26/19 23:30 36.8 C 5 L 58 H 166/[address] Head non contrast: IMPRESSION: 1. Chronic small vessel ischemic change. No acute intracranial abnormality.
[2019-03-27] MEDS ORDERED: ATORVASTATIN 20 MG TAB PO SCH (09:00)
[2019-03-27] MEDS ORDERED: ASPIRIN 81 MG ECTAB PO SCH (09:00)
[2019-03-27] MEDS ORDERED: CHOLECALCIFEROL 1,000 UNITS TAB PO SCH (09:00)
[2019-03-27] MEDS ORDERED: PANTOprazole 40 MG TAB PO SCH (09:00)
[2019-03-27] MEDS ORDERED: FOLIC ACID 1 MG TAB PO SCH (09:00)
[2019-03-27] MEDS ORDERED: MULTIVITAMIN TAB PO SCH (09:00)
[2019-03-27] MEDS ORDERED: CYANOCOBALAMIN 500 MCG TABLET (VITAMIN B-12) PO SCH (09:00)
[2019-03-27] MEDS ORDERED: TIMOLOL MALEATE 0.25% OP SOLN 5 ML BTL OPB SCH (09:00)
--- NOTE | 2019-03-27 12:38 | Magnetic Resonance Report ---
MR angio head wo con HISTORY: 83 years-old Female TIA symptoms acute strokelike symptoms with left arm numbness COMPARISON: CT head 03/26/2019, brain MRI 10/15/2018 TECHNIQUE: MRA of the head was obtained without the use of IV contrast utilizing 3-D [id number] s equencing. All measurements were obtained according to NASCET criteria. FINDINGS: Splitter Hand localizer images demonstrate no gross abnormality. The imaged bilateral internal carotid arteri es appear widely patent and are unremarkable. The bilateral middle and anterior cerebral arteries are widely patent and also within normal limits. Imaged bilateral vertebral arteries appear patent and unremarkable. The basilar artery and bilateral posterior cerebral arteries are patent. origin of the right posterior cerebral artery. There is no aneurysm, dissection, high-grade stenosis or proximal branch occlusion identified. IMPRESSION: Unremarkable MRA without aneurysm, dissection, high-grade stenosis or proximal branch occ lusion identified. The above report was generated using voice recognition software. It may contain grammatical, syntax o r spelling errors. Electronically signed by: Jonathan Helton M.D. 03/27/2019 12:36 PM
[2019-03-27] MEDS ORDERED: GADOBUTROL 30ML VIAL IV PRN (13:12)
--- NOTE | 2019-03-27 13:30 | Magnetic Resonance Report ---
MR brain wo/w con HISTORY: 83 years-old Female TIA acute strokelike symptoms COMPARISON: MRA head and neck of same day, brain MRI 10/15/2018 TECHNIQUE: Multiplanar multisequence MRI of the brain was obtained both with and without the use of 5 .0 mL Gadavist FINDINGS: Claim Manager localizer images demonstrate no gross extracranial abnormality. Midline structures including th e corpus callosum, brainstem, optic chiasm, pituitary and pineal glands appear unremarkable on the sa gittal T1 series. No cerebellar tonsillar herniation. Degenerative changes noted about the imaged cer vical spine. There is no restricted diffusion to suggest acute or subacute infarction. Age-related in volutional changes. Moderate patchy T2/FLAIR hyperintensities about the white matter redemonstrated. There is no abnormal intra-axial or extra-axial enhancement identified. No acute intracranial hemorrh age, midline shift, abnormal extra-axial collections, hydrocephalus or intracranial mass identified. Cerebral venous sinuses appear patent and normal. Prior left-sided cataract repair. Orbits are otherwise unremarkable. Major flow voids at the level of the skull base appear patent. Trace left and small to moderate right mastoid effusions. Mild mucosal thickening of the ethmoid air cells. Skull and soft tissues are unremarkable. IMPRESSION: 1. No acute intracranial abnormality identified, specifically no acute or subacute infarction. 2. No abnormal enhancement. 3. Age-related involutional changes with moderate chronic microvascular ischemic changes. The above report was generated using voice recognition software. It may contain grammatical, syntax o r spelling errors. Electronically signed by: Jonathan Helton M.D. 03/27/2019 1:28 PM
--- NOTE | 2019-03-27 13:49 | Magnetic Resonance Report ---
MR angio neck wo/w con HISTORY: 83 years-old Female TIA symptoms acute strokelike symptoms COMPARISON: MRA head and MRI brain of same day, carotid ultrasound 10/15/2018, MRA neck 12/27/2013, CT of the neck 10/08/2017. TECHNIQUE: MRA of the neck was obtained both with and without the use of 5 mL Gadavist utilizing 3-D [id number] sequencing MIP reformats. Measurements were obtained according to NASCET criteria. FINDINGS: Hydro Excavation Operator localizer images demonstrate no gross abnormality of the imaged neck or chest. Suggestion of pl eural-parenchymal scarring at the lung apices. The imaged pulmonary arterial tree and thoracic aortic arch. Unremarkable. There is patency of the imaged bilateral subclavian arteries. Bilateral common c arotid arteries are widely patent. The bilateral internal carotid arteries also appear to be widely p atent. The vertebral arteries appear to be codominant and are also widely patent. There is no aneurys m, dissection, high-grade stenosis or proximal branch occlusion identified. IMPRESSION: Unremarkable MRA of the neck. The above report was generated using voice recognition software. It may contain grammatical, syntax o r spelling errors. Electronically signed by: Jonathan Helton M.D. 03/27/2019 1:47 PM
[2019-03-27 15:10] VITALS: BP 164/73; TEMP 97.5; O2SAT 99
[2019-03-27] MEDS ORDERED: STROKE PATIENT DISCHARGE STA (16:27)
[2019-03-27 16:54] VITALS: PULSE 55
[2019-03-28 06:34] LABS: Estimated Average Glucose 128 mg/dl; Hemoglobin A1C 6.1 % (4.5-5.6)
--- NOTE | 2019-03-29 13:42 | Discharge Summary ---
Date of Service March 29, 2019 Admission HPI Per Admitting Provider 83-year-old female who presents to the ED with left upper extremity numbness and left hand weakness. 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 Patient reports she was holding onto a bag of cody when she developed left upper extremity numbness and drop the bones on the floor. She reports that she was unable to pick the bounce back up off the floor. She was able to move her arm however had significant weakness in her left hand. Symptoms lasted for about 10 minutes and then resolved on their own. 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 She has been having worsening vision of the left eye over the past couple of weeks and has been evaluated by her outpatient air director. Patient reports she has an appointment with the retinal specialist next week. She reports no acute worsening of her vision today. Patient denies chest pain shortness of breath. No lightheadedness, dizziness, diaphoresis, syncopal events. She denies headache and double vision. No abdominal pain, nausea, vomiting, diarrhea. She denies other recent illnesses, fevers, chills. No urinary symptoms. In the ED, patient's labs are unremarkable and CT head is negative for acute findings. She was given a full dose aspirin. Admission Exam Per Admitting Provider WD/WN, vitals as above Eyes: PERRL, conjunctivae normal, anicteric sclerae Poor vision ENMT: external ear and nose normal, oropharynx normal Respiratory: normal respiratory effort, lungs clear to auscultation Cardiovascular: Rate/Rhythm: regular rate and regular rhythm Vessels: normal peripheral pulses Extremities: no edema Gastrointestinal (Abdomen): normal bowel sounds, soft, nontender, no hepatosplenomegaly Musculoskeletal: no cyanosis or clubbing, extremities motor strength 5/5 Skin: no rashes, warm and dry Neurologic: PERRL, EOMI, accommodation nl, no face palsy, no dysarthria moves all extremities and awake; no focal motor deficits Motor/Sensory: no pronator drift Cranial Nerves: tongue midline Coordination: normal [id number] test (Has some difficulty seeing finger secondary to poor vision, able to touch nose without difficulty) and normal [id number] test Psychiatric: A+Ox3, euthymic affect Principal Diagnosis Recurrent LUE weakness Discharge Data Allergies Allergy/AdvReac Type Severity Reaction Status Date / Time tetanus toxoid, adsorbed Allergy Mild SWELLING Verified 03/26/19 14:55 AND REDNESS sulfamethoxazole AdvReac Dizziness Verified 03/26/19 14:55 [From Bactrim] trimethoprim [From Bactrim] AdvReac Dizziness Verified 03/26/19 14:55 Consultations 03/26/19 15:17 ED Decision to Admit Stat 03/26/19 17:09 Consult Case Management - Discharge Planning Routine Consult Case Management - Discharge Planning Routine Consult Neurology Routine Ordered Studies 03/26/19 14:13 CT head/brain wo con Stat 03/27/19 10:41 MR angio head wo con Routine MR angio neck wo/w con Routine 03/27/19 16:33 MR brain wo/w con Routine Hospital Course (1) LUE weakness: (2) Low vision of left eye: (3) Low vision of right eye: Ms. Johnson is an 83-year-old female with a history of stroke-like symptoms that began several hours prior to arrival to the ER. She specifically reported numbness in her left arm and hand that began while she was holding an object in her left hand. She reports dropping the object after the onset of numbness in the left arm and reports weakness that persisted, prompting ER visit. She is known to be blind in her right eye due to her previous stroke and states that her left eye has also been an issue for her for the last 3 years but worse in the last 2 weeks. She has an upcoming ophthalmology appointment to address this. On arrival to the ER she was hemodynamically stable and afebrile and oxygenating well on room air. Neuro exam revealed an alert and oriented female with normal strength and no cranial nerve deficit or sensory deficit. Coordination and gait were normal. Cerebellar tests were within normal limits. CT of the head was performed which was within normal limits. However she continued to display periodic upper extremity weakness and paresthesias so was admitted to the Hospitalist service for further work-up and evaluation. Lab work including CBC and BMP was normal, and EKG revealed sinus rhythm with a rate of [address] depression or elevation. She notably has a history of multiple TIAs in the past with similar symptoms. At the time of evaluation by the Hospitalist team her symptoms had resolved. She had received an aspirin in the ER and was continued on baby aspirin, Eliquis, statin. A brain MRI was ordered and permissive hypertension was allowed. She notably had a carotid Doppler and echocardiogram in 2018 which was not repeated at this time. Neurology was consulted and felt there was an unclear etiology of this recurrent episode of the left hand weakness and numbness. She had been evaluated in the past with EEG and CTA. Previous episodes were negative for acute stroke with the last episode in September 2018. The current differential diagnosis includes carpal tunnel syndrome versus compensation from previous CVA versus functional. This episode was not thought to be consistent with a TIA. Home medications were continued without the addition or change of any current antiplatelet therapy. The MRI of the brain revealed no acute or subacute infarction, no abnormal enhancement, and age-related involutional changes consistent with moderate chronic microvascular ischemic change. An MRA of the head and neck revealed no evidence of aneurysm dissection or high-grade stenosis. At time of discharge the occupational therapist was concerned about her abilities to perform activities of daily living at her home independently. I addressed this with the patient who is alert and oriented x3 who requested I did not speak with her family regarding additional support. She assured me she would bring this up with them and with her primary care doctor on her own. She informed me that she was not interested in having me set up home health at this time as she wanted to do this on her own, also. Furthermore, she was not also not interested in considering rehab or SNF. She was discharged in stable condition with close primary care follow-up recommended. Total Time Total Time Spent Total Time Spent (In Minutes): 60 Total Time Includes: Examination of the Patient, Discharge Planning, Medication Reconciliation and Communication With Other Providers Discharge Plan Discharge Items Patient Disposition: Home - Self-Care Reason For Visit: TIA AROUND 1 PM Discharge Diagnosis: Recurrent LUE weakness Discharge Goals: Improve disease control and Improve function Activity: Resume your previous activity Non-emergency contact: Primary Care Provider Call non-emergency contact if: you have any medication questions, your symptoms worsen, your pain is not controlled and you have a fever Follow-up/Referrals: Neo Plascencia MD [Primary Care Provider] - Diet: Heart Healthy Addtl Provider Instructions: Please take all medications as instructed on discharge list below. It is recommended that you followup with your primary care provider within one week of discharge from the hospital. It was a pleasure taking care of you! Please call if you have any questions or problems. You can reach a [facility] hospitalist on duty at [facility] 24 hours a day by calling [phone]. Take care of yourself. DO Hilaria Shannon Hospitalist Prescriptions: Continued folic acid 1 mg Tablet 1 mg PO QAM Qty: 0 RF: 0 cholecalciferol (vitamin D3) 1,000 unit Capsule 2,000 unit PO QAM Qty: 0 RF: 0 aspirin 81 mg Tablet,Delayed Release (Dr/Ec) 81 mg PO QAM Qty: 0 RF: 0 atorvastatin [Lipitor] 20 mg Tablet 20 mg PO QAM Qty: 0 RF: 0 lisinopril 10 mg Tablet 10 mg PO HS Qty: 0 RF: 0 omeprazole 20 mg Capsule,Delayed Release(Dr/Ec) 20 mg PO QAM Qty: 0 RF: 0 Eliquis 2.5 mg Tablet 2.5 mg PO BID Qty: 0 RF: 0 cyanocobalamin (vitamin B-12) 1,000 mcg Capsule 2,000 mcg PO QAM Qty: 0 RF: 0 metoprolol tartrate 25 mg tablet 25 mg PO BID RF: 0 Lumigan 0.01 % Drops 1 drp OPB HS RF: 0 gabapentin 100 mg capsule 200 mg PO HS Qty: 60 RF: 5 levothyroxine [Synthroid] 75 mcg tablet 75 mcg PO QAM RF: 0 timolol maleate 0.5 % drops 1 drp OPB DAILY RF: 0 Centrum Silver Women 8 mg iron-400 mcg-300 mcg Tablet 1 tab PO DAILY RF: 0 ipratropium bromide 0.03 % spray,non-aerosol 2 spray intranasal TID PRN (Reason: Nasal Congestion) RF: 0 Stand-Alone Forms: My [facility]/Other Patient Handouts: TIA Discharge Orders: Discharge Order (Routine); Ordered 03/27/19 Ordered By: Loli Summers Admission Data Admit Date/Time: 03/26/19 16:28 Attending Provider: Loli Summers Admit Provider: Iain Dorsey Primary Care Provider: Neo Plascnecia Other Providers: Iain Dorsey ; Rogerio Blunt Service: Telemetry Other Interventions: Discharge Summary Assessment (RN) Last Done: 03/27/19 16:54 DC Date/Time DO NOT enter until pt leaves facility: 03/27/19 18:00
--- NOTE | 2019-03-30 11:40 | Coding Query ---
To promote full compliance with coding requirements relating to patient care, provider participation is requested in all cases of senior quality manager uncertainty. Please assist us with the question(s) below: Coding Question(s): Please clarify if the patient was treated for a TIA or if it was ruled out. Thanks so much for your help! TIA ( ) Diagnosed and POA ( ) Diagnosed and not POA ( x ) Ruled out ( ) Other (please specify) MTDD
== END 2019-03-27 18:00 | disposition home or self-care (01) | DRG 93 ==
LOC: ED 13:44 → 2S 16:28

== ENCOUNTER 2019-11-01 00:47 | Inpatient (IN) ==
[2019-11-01] MEDS ORDERED: SODIUM CHLORIDE 0.9% 500 ML IV SCH (01:15)
[2019-11-01 01:33] LABS: Basophils # (auto) 0.02 K/uL (0-0.2); Basophils % (auto) 0.3 %; Eosinophils # (auto) 0.07 K/uL (0-0.5); Eosinophils % (auto) 0.9 %; Hematocrit (blood only) 37.4 % (37-47); Hemoglobin 12.1 g/dL (12.0-16.0); Immature Granulocytes # (auto) 0.01 K/uL (0.00-0.02); Immature Granulocytes % (auto) 0.1 %; Lymphocytes # (auto) 0.99 K/uL (1.2-3.4); Lymphocytes % (auto) 12.6 %; Mean Corpuscular Hemoglobin 30.4 pg (25-34); Mean Corpuscular Hgb Conc 32.4 g/dL (32-36); Mean Platelet Volume 9.9 fL (7.4-10.4); Monocytes # (auto) 0.59 K/uL (0.11-0.59); Monocytes % (auto) 7.5 %; Neutrophils # (auto) 6.15 K/uL (1.4-6.5); Neutrophils % (auto) 78.6 %; Platelet Count 233 K/uL (130-400); RDW Coefficient of Variation 13.9 % (11.5-14.5); RDW Standard Deviation 47.9 fL (36.4-46.3); Red Blood Count 3.98 M/uL (4.2-5.4); White Blood Count 7.83 K/uL (4.8-10.8)
[2019-11-01 01:52] LABS: Alanine Aminotransferase 28 U/L (12-78); Albumin Level 3.1 gm/dl (3.4-5.0); Aspartate Aminotransferase 16 U/L (15-37); BUN Creatinine Ratio 40.6 (10-20); Blood Urea Nitrogen 37 mg/dl (7-18); Calcium 8.6 mg/dl (8.5-10.1); Carbon Dioxide 31 mmol/L (21-32); Chloride 105 mmol/L (98-107); Est GFR (African American) 65.3; Est GFR (Non-African American) 56.4; Glucose 105 mg/dl (70-99); Potassium 3.7 mmol/L (3.5-5.1); Sodium 139 mmol/L (136-145)
[2019-11-01 02:03] LABS: Albumin Globulin Ratio 0.9 (0.9-2); Alkaline Phosphatase 148 U/L (45-117); Bilirubin,Total 0.3 mg/dl (0.2-1); Creatine Kinase 88 U/L (26-192); Globulin 3.6 gm/dl (2.5-4.0); Total Protein 6.7 gm/dl (6.4-8.2); Troponin I < 0.015 ng/ml (0-0.045)
[2019-11-01] MEDS ORDERED: SODIUM CHLORIDE 0.9% 1000ML 500 ML IV ONE (02:19)
[2019-11-01] MEDS ORDERED: IOVERSOL 100ml IV PRN (02:38)
--- NOTE | 2019-11-01 03:57 | Emergency Department Note ---
Entered by Vaibhav Lanza acting as a scribe for History of Present Illness General Chief complaint: Confusion Stated complaint: CONFUSION WITH UTI Source: patient and family (daughter) Limitations: altered mental status (confusion) History of Present Illness Onset (ago): day(s) (yesterday) Location: head Pain Consistency: + other (constant) Maximum Pain Intensity: 0 Quality: + other (confusion) The patient is an 84 year old female who presents to the emergency department with complaints of constant confusion beginning yesterday. Per daughter, the patient was diagnosed with a UTI three days ago. She states that the patient was confused at that time, but she notes that the patient snapped out of it. She reports that the patient became confused again last night. She states that the patient could not remember her birthday or her phone number. HPI limited secondary to confusion. Home Medications Home Medications Medication Instructions Recorded Confirmed Type cholecalciferol (vitamin D3) 2,000 unit PO QAM #0 03/21/17 11/01/19 History folic acid 1 mg PO QAM #0 03/21/17 11/01/19 History aspirin 81 mg PO QAM #0 10/08/17 11/01/19 History atorvastatin [Lipitor] 20 mg PO QAM #0 tab 02/11/18 11/01/19 History lisinopril 10 mg PO HS #0 02/11/18 11/01/19 History omeprazole 20 mg PO QAM #0 02/11/18 11/01/19 History Eliquis 2.5 mg PO BID #0 tab 03/29/18 11/01/19 History cyanocobalamin (vitamin B-12) 2,000 mcg PO QAM #0 03/29/18 11/01/19 History Lumigan 1 drp OPB HS 10/11/18 11/01/19 History metoprolol tartrate 25 mg PO BID 10/11/18 11/01/19 History gabapentin 200 mg PO HS #60 cap 10/15/18 11/01/19 Rx ipratropium bromide 2 spray INTRANASAL TID PRN 03/26/19 11/01/19 History levothyroxine [Synthroid] 75 mcg PO QAM 03/26/19 11/01/19 History timolol maleate 1 drp OPL QAM 03/26/19 11/01/19 History cephalexin [Keflex] 500 mg PO TID 7 Days #21 cap 10/29/19 11/01/19 Rx Allergies Allergy/AdvReac Type Severity Reaction Status Date / Time tetanus toxoid, adsorbed Allergy Mild SWELLING Verified 11/01/19 01:35 AND REDNESS sulfamethoxazole AdvReac Dizziness Verified 11/01/19 01:35 [From Bactrim] trimethoprim [From Bactrim] AdvReac Dizziness Verified 11/01/19 01:35 Past Med/Surg History Social History Preferred Language: Syriac Communication Ability: Effective Visual Impairment: Limited Hearing Ability: Normal Product/Device Technologist Required: No Beliefs That Will Affect Care: None Current Living Situation: Alone Current Living Situation Comment: One daughter lives next door to patient Other Information That Helps Us Care for You: No Feels Safe at Home: Yes Smoking Status: Never smoker Second Hand Exposure: No ; Hx Alcohol Use: No Hx Substance Use: No Review of Systems See HPI for pertinent positives & negatives. and A total of 10 systems reviewed and were otherwise negative Physical Exam Vital Signs Vital Signs - 24 hr 11/01/19 03:00 11/01/19 04:00 11/01/19 05:00 Temperature 36.5 C Temperature Source Oral Pulse Rate [Right Finger] 75 70 74 Pulse Rhythm [Right Finger] Regular Respiratory Rate 16 18 20 Respiratory Effort / Characteristics Non-Labored Spontaneous Non-Labored Spontaneous Respiratory Depth Normal Normal Respiratory Pattern Regular Regular Blood Pressure [Left Arm] 146/70 H 174/86 H 204/98 H Blood Pressure Mean [Left Arm] 95 115 133 Blood Pressure Position [Left Arm] Lying Lying Pulse Oximetry 96 99 Oxygen Delivery Method Room Air Room Air 11/01/19 05:26 11/01/19 07:31 11/01/19 08:40 Temperature 36.5 C 36.3 C L Temperature Source Oral Oral Pulse Rate [Right Finger] 74 56 L 62 Pulse Rhythm [Right Finger] Respiratory Rate 20 18 Respiratory Effort / Characteristics Non-Labored Spontaneous Respiratory Depth Normal Respiratory Pattern Blood Pressure [Left Arm] 204/98 H 159/81 H Blood Pressure Mean [Left Arm] 133 107 Blood Pressure Position [Left Arm] Lying Pulse Oximetry 99 99 Oxygen Delivery Method Room Air Room Air 11/01/19 15:11 Temperature 36.8 C Temperature Source Oral Pulse Rate [Right Finger] 76 Pulse Rhythm [Right Finger] Respiratory Rate 20 Respiratory Effort / Characteristics Respiratory Depth Respiratory Pattern Blood Pressure [Left Arm] 163/76 H Blood Pressure Mean [Left Arm] 105 Blood Pressure Position [Left Arm] Sitting Pulse Oximetry 95 Oxygen Delivery Method Room Air GENERAL: Awake, alert, well-appearing, in no acute distress HENT: Normocephalic, atraumatic. Oropharynx unremarkable. EYES: Normal conjunctiva. Sclera non-icteric. NECK: Supple. No nuchal rigidity. FROM. No JVD. RESPIRATORY: Clear to auscultation. CARDIAC: Regular rate, normal rhythm. Extremities warm and well perfused. Pulses equal. ABDOMEN: Soft, non-distended. No tenderness to palpation. No rebound or guarding. No masses. RECTAL: Deferred. MUSCULOSKELETAL: Chest examination reveals no tenderness. The back is symmetrical on inspection without obvious abnormality. There is no CVA tenderness to palpation. No joint edema. LOWER EXTREMITIES: Calves are equal size bilaterally and non-tender. No edema. No discoloration. NEURO: No sensory or motor deficits noted. Cannot get words out, oriented to person and place, unable to tell story about why she is here. SKIN: No rash or jaundice noted. Course Course 0119: The patient was evaluated in room A11. A complete history and physical exam was performed. Administered Medications Apixaban (Eliquis) 2.5 mg PO BID [facility] Stop: 12/01/19 08:59 Last Admin: 11/01/19 21:11 Dose: 2.5 mg Documented by: [id number] Admin: 11/01/19 08:20 Dose: 2.5 mg Documented by: [id number] Aspirin (Ecotrin Ectab) 81 mg PO QAM [facility] Stop: 12/01/19 08:59 Last Admin: 11/01/19 08:21 Dose: 81 mg Documented by: [id number] Atorvastatin Calcium (Lipitor) 20 mg PO QAM [facility] Stop: 12/01/19 08:59 Last Admin: 11/01/19 08:21 Dose: 20 mg Documented by: [id number] Bimatoprost (Lumigan 0.01%) 1 drops OP HS [facility] Stop: 12/01/19 20:59 Last Admin: 11/01/19 21:11 Dose: 1 drops Documented by: [id number] Cyanocobalamin (Vitamin B-12) 2,000 mcg PO QAM [facility] Stop: 12/01/19 08:59 Last Admin: 11/01/19 08:20 Dose: 2,000 mcg Documented by: [id number] Folic Acid (Folvite) 1 mg PO [facility] Stop: 12/01/19 08:59 Last Admin: 11/01/19 08:22 Dose: 1 mg Documented by: [id number] Gabapentin (Neurontin) 200 mg PO [facility] Stop: 12/01/19 20:59 Last Admin: 11/01/19 21:11 Dose: 200 mg Documented by: [id number] Ceftriaxone Sodium 1,000 mg/ (Dextrose) 50 mls @ 100 mls/hr IV Q24H [facility]; Protocol Stop: 11/11/19 05:44 Last Infusion: 11/01/19 06:53 Dose: 0 mls/hr Documented by: [id number] Admin: 11/01/19 06:17 Dose: 100 mls/hr Documented by: [id number] [facility]othy[facility]ine [facility]th[facility]) [facility] Stop: 12/01/19 06:29 Last Admin: 11/01/19 06:17 Dose: 75 mcg Documented by: [id number] Lisinopril (Zestril) 10 mg PO [facility] Stop: 12/01/19 20:59 Last Admin: 11/01/19 21:10 Dose: 10 mg Documented by: [id number] Metoprolol Tartrate (Lopressor) 25 mg PO BID [facility] Stop: 12/01/19 08:59 Last Admin: 11/01/19 21:10 Dose: 25 mg Documented by: [id number] Admin: 11/01/19 08:22 Dose: 25 mg Documented by: [id number] Pantoprazole Sodium (Protonix) 40 mg PO [facility] Stop: 12/01/19 08:59 Last Admin: 11/01/19 08:21 Dose: 40 mg Documented by: [id number] Timolol Maleate (Timoptic 0.25% Oph) 1 drops OPL [facility] Stop: 12/01/19 08:59 Last Admin: 11/01/19 08:22 Dose: 1 drops Documented by: [id number] Vitamin D (Vitamin D3) 2,000 units PO [facility] Stop: 12/01/19 08:59 Last Admin: 11/01/19 08:21 Dose: 2,000 units Documented by: [id number] Discontinued Medications Clonidine HCl (Catapres) 0.1 mg PO NOW ONE Stop: 11/01/19 05:09 Last Admin: 11/01/19 05:37 Dose: 0.1 mg Documented by: [id number] Sodium Chloride (Nss) 500 mls @ 999 mls/hr IV .Q31M A[facility]ANT[facility] Stop: 11/01/19 01:45 Last Infusion: 11/01/19 02:40 Dose: 0 mls/hr Documented by: [id number] Admin: 11/01/19 01:59 Dose: 999 mls/hr Documented by: [id number] Sodium Chloride (Nss 1000ml) 500 mls @ 999 mls/hr IV .Q31M ONE Stop: 11/01/19 02:49 Last Infusion: 11/01/19 03:37 Dose: 0 mls/hr Documented by: [id number] Admin: 11/01/19 03:02 Dose: 999 mls/hr Documented by: [id number] Sodium Chloride (Nss 1000ml) 1,000 mls @ 80 mls/hr IV .[id number] [facility] Stop: 12/01/19 04:48 Last Infusion: 11/01/19 19:13 Dose: 0 mls/hr Documented by: [id number] Admin: 11/01/19 17:19 Dose: 80 mls/hr Documented by: [id number] Infusion: 11/01/19 17:19 Dose: 80 mls/hr Documented by: [id number] Admin: 11/01/19 05:48 Dose: 80 mls/hr Documented by: [id number] Ioversol (Optiray 320 100ml) 100 ml IV ONCE PRN PRN Reason: Interaction Checking Stop: 11/05/19 02:37 Last Admin: 11/01/19 02:38 Dose: 93 ml Documented by: [id number] Medical Decision Making Differential Diagnosis Differential diagnosis: Etiologies such as psychiatric disorder, infection, hypoglycemia, electrolyte abnormalities, cardiac sources, intracerebral event, toxicological process, neurologic disorder, as well as others were entertained. Medical Records Attestation: I reviewed the patient's medical records. Home Medications Current Medication List: was personally reviewed by me Laboratory Data Attestation: I reviewed the patient's lab results. Result diagrams: 11/01/19 01:18 11/01/19 01:18 Lab Results 01/14/20 01/14/20 01/14/20 Range/Units 01:18 01:18 06:41 WBC 7.83 (4.8-10.8) K/uL RBC 3.98 L (4.2-5.4) M/uL Hgb 12.1 (12.0-16.0) g/dL Hct 37.4 (37-47) % MCV 94.0 (80-100) fL MCH 30.4 (25-34) pg MCHC 32.4 (32-36) g/dL RDW Std Deviation 47.9 H (36.4-46.3) fL RDW Coeff of Bassem 13.9 (11.5-14.5) % Plt Count 233 (130-400) K/uL MPV 9.9 (7.4-10.4) fL Immature Gran % (Auto) 0.1 % Neut % (Auto) 78.6 % Lymph % (Auto) 12.6 % [place] % (Auto) 7.5 % Eos % (Auto) 0.9 % Baso % (Auto) 0.3 % Immature Gran # (Auto) 0.01 (0.00-0.02) K/uL Neut # (Auto) 6.15 (1.4-6.5) K/uL Lymph # (Auto) 0.99 L (1.2-3.4) K/uL [place] # (Auto) 0.59 (0.11-0.59) K/uL Eos # (Auto) 0.07 (0-0.5) K/uL Baso # (Auto) 0.02 (0-0.2) K/uL Sodium 139 (136-145) mmol/L Potassium 3.7 (3.5-5.1) mmol/L Chloride 105 (98-107) mmol/L Carbon Dioxide 31 (21-32) mmol/L Anion Gap 3.0 (3-11) BUN 37 H (7-18) mg/dl Creatinine 0.92 (0.6-1.2) mg/dl Est Cr Clr Drug Dosing Not Reportable Est GFR ( Amer) 65.3 Est GFR (Non-Af Amer) 56.4 BUN/Creatinine Ratio 40.6 H (10-20) Glucose 105 H (70-99) mg/dl Calcium 8.6 (8.5-10.1) mg/dl Total Bilirubin 0.3 (0.2-1) mg/dl AST 16 (15-37) U/L ALT 28 (12-78) U/L Alkaline Phosphatase 148 H (45-117) U/L Total Creatine Kinase 88 (26-192) U/L Troponin I < 0.015 (0-0.045) ng/ml Total Protein 6.7 (6.4-8.2) gm/dl Albumin 3.1 L (3.4-5.0) gm/dl Globulin 3.6 (2.5-4.0) gm/dl Albumin/Globulin Ratio 0.9 (0.9-2) TSH 1.030 (0.300-4.500) uIu/ml Urine Color Yellow Urine Appearance Clear (Clear) Urine pH 7.5 (4.5-7.5) Ur Specific [place] 1.035 H (1.000-1.030) Urine Protein Negative (Negative) Urine Glucose (UA) Negative (Negative) Urine Ketones Negative (Negative) Urine Blood Trace H (Negative) Urine Nitrite Negative (Negative) Urine Bilirubin Negative (Negative) Urine Urobilinogen Negative (Negative) Ur Leukocyte Esterase Negative (Negative) Urine WBC (Auto) 0 (0-5) /hpf Urine RBC (Auto) 0-4 (0-4) /hpf U Hyaline Cast (Auto) 1-5 (0-5) /lpf U Epithel Cells (Auto) 10-20 H (0-5) /lpf Urine Bacteria (Auto) Negative (Negative) Imaging Data Attestation: I personally reviewed and interpreted this imaging study as follows: My Impression: 1 VIEW CHEST X-RAY: No evidence of congestion, pneumonia, or pneumothorax. Radiologist's Impression: Radiology results as stated below per my review and the radiologist's interpretation: CT HEAD: Comparison to March 292018. The paranasal sinuses and mastoid air cells are normally aerated. There is no skull fracture or scalp hematoma. There is a normal gyral pattern of the brain. There is no mass lesion or midline shift. The reed-white matter differentiation is maintained. There is mild periventricular white matter low density bilaterally consistent with chronic small vessel disease. There is evidence of acute large vessel infarct or intracranial hemorrhage. Radiologist: Sam Malcolm MD. CT abdomen pelvis with contrast: The liver gallbladder spleen pancreas and adrenal glands are unremarkable. The kidneys enhance symmetrically with contrast with slight prominence of the renal collecting system bilaterally. No overt hydronephrosis is present. No ureteral lysis or hydroureter is seen. Bowel loops are nondilated new no pneumoperitoneum free fluid or focal in flammatory changes are seen. The appendix is normal. Moderate to severe multilevel degenerative changes are seen within the spine. No fracture or canal compromise is seen. ECG Data Attestation: I personally reviewed and interpreted this ECG as follows: Indication: + altered mental status Rate (beats per minute): 63 Rhythm: + normal sinus ECG ST segments: no ST depression and no ST elevation ECG Findings: + PVCs Additional Comments: QTC 456. Blood Pressure Blood Pressure Findings: Elevated blood pressure Blood Pressure Disposition: elevated BP felt to be situational MDM Narrative -This is an 84-year-old female currently being treated for urinary tract infection. The patient lives at home however was brought in over concerns that the patient was not taking care of herself and was grossly confused. Upon arrival to the emergency department the patient cannot seem to find her words. She was sent for CAT scan of the head which does not show any acute process. Patient does not have an elevation in her white blood cell count has a normal renal profile. She was discussed with the hospitalist service who did agree to admit the patient. Patient was in agreement with the treatment plan. Impression & Plan Acute confusion Discharge Plan Visit Data *Final* Discharge Date/Time: 11/01/19 04:26 Chief Complaint: Confusion Stated Complaint: CONFUSION WITH UTI ED Provider: Vamsi Faith Discharge Problem: Acute confusion Patient Disposition: Admitted As Inpatient Discharge Instructions Interventions: ED Discharge Assessment Last Done: 11/01/19 04:26 The scribe's documentation has been prepared under my direction and personally reviewed by me in its entirety. I confirm that the note above accurately reflects all work, treatment, procedures, and medical decision making performed by me.
[2019-11-01] MEDS ORDERED: ONDANSETRON INJ 2 MG/ML 2 ML VIAL IV PRN (04:49)
[2019-11-01] MEDS ORDERED: POLYETHYLENE (MIRALAX) 17 GM PACK PO PRN (04:49)
[2019-11-01] MEDS ORDERED: ACETAMINOPHEN 325 MG TAB PO PRN (04:49)
[2019-11-01] MEDS ORDERED: cloNIDine HCL 0.1 MG TAB PO ONE (05:08)
[2019-11-01] MEDS ORDERED: HydrALAZINE HCL 20 MG/ML VIAL IV PRN (05:09)
[2019-11-01] MEDS ORDERED: IPRATROPIUM BROMIDE NASAL SPRAY 0.06% 15ML NAE PRN (05:48)
[2019-11-01] MEDS: SODIUM CHLORIDE 0.9% 1000ML 1,000 ML IV SCH ×2 (05:48→17:19)
[2019-11-01] MEDS: cefTRIAXone SODIUM 1,000 MG in DEXTROSE 5% 50 ML IV SCH (06:17)
[2019-11-01] MEDS: LEVOTHYROXINE SODIUM 75 MCG TABLET PO SCH (06:17)
--- NOTE | 2019-11-01 06:25 | CT Scan Report ---
CT head/brain wo con CLINICAL HISTORY: 84 years-old Female with Pt c/o AMS. Acutely altered mental status TECHNIQUE: Multiple axial CT images of the head were obtained without contrast. A dose lowering tech nique was utilized adhering to the principles of ALARA. CT DOSE: 537.48 mGy.cm COMPARISON: Head CT 10/29/2019. FINDINGS: No acute intracranial hemorrhage, midline shift, intracranial mass, hydrocephalus, territorial ischem ia or abnormal extra-axial collection. Age-related involutional changes. Patchy white matter hypodens ities suggest chronic microvascular ischemic disease. Cerebral vascular calcifications are noted. The calvarium is intact. Small right mastoid effusion. The left mastoid air cells are generally ivelisse r. Paranasal sinuses are clear. Soft tissues are unremarkable. Prior left-sided wedge replacement. IMPRESSION: No acute intracranial abnormality. ACT 112: Negative or not required by law. The above report was generated using voice recognition software. It may contain grammatical, syntax o r spelling errors. Electronically signed by: Jonathan Helton M.D. 11/01/2019 6:23 AM
--- NOTE | 2019-11-01 06:56 | XRay Report ---
XR chest 1V portable CLINICAL HISTORY: 84 years-old Female presenting with weakness. TECHNIQUE: Portable upright AP view of the chest was obtained. COMPARISON: 07/19/2019. FINDINGS: Atherosclerosis of the aortic arch. Cardiac silhouette enlarged. Bilateral hilar superior retraction suspected. Significant heterogeneity lung parenchyma. Persistent reticulonodular opacities in the rig ht apex. No new focal opacity. No large effusion or pneumothorax. Osteopenia. Upper abdomen normal. IMPRESSION: 1. Chronic reticulonodular opacities at the right apex, likely in part cicatrizing atelectasis. No c onvincing evidence of a superimposed infiltrate. 2. Cardiomegaly. ACT 112: Negative or not required by law. Electronically signed by: Sebastián Person M.D. 11/01/2019 6:54 AM
[2019-11-01 06:59] LABS: Appearance Urine Clear (Clear); Bacteria Urine Automated Negative (Negative); Bilirubin Urine Negative (Negative); Blood Urine Trace (Negative); Color Urine Yellow; Glucose Urine UA Negative (Negative); Ketones Urine Negative (Negative); Leukocyte Esterase Urine Negative (Negative); Nitrite Urine Negative (Negative); Protein Urine Negative (Negative); RBC Urine Automated 0-4 /hpf (0-4); Specific Gravity Urine 1.035 (1.000-1.030); Urobilinogen Urine Negative (Negative); WBC Urine Automated 0 /hpf (0-5); pH Urine 7.5 (4.5-7.5)
--- NOTE | 2019-11-01 07:18 | CT Scan Report ---
CT abd pelvis IV con only CLINICAL HISTORY: 84 years-old Female presenting with right flank pain, left-sided abdominal pain, co nfusion, recent UTI. TECHNIQUE: Multidetector CT of the abdomen and pelvis was performed after the administration of intra venous contrast. IV contrast: 93 mL of Optiray 320. One or more dose lowering techniques were used co nsistent with the principles of ALARA (as low as reasonably achievable), including automatic exposure control, mA or kV adjustment to individual patient size, and/or use of iterative reconstruction. COMPARISON: 06/16/2018. CT DOSE (mGy.cm): The estimated cumulative dose is 243.25 mGy.cm. FINDINGS: 3D Modeler topogram: Unremarkable. Lung bases: Multichamber enlargement of the heart. No pericardial or pleural effusion. Minimal depend ent changes likely atelectasis. Fat-containing Bochdalek hernias. Liver: The superior most portion of the hepatic dome is excluded from the [id number] limiting eval uation in this region. Otherwise normal morphology. No focal lesion. Patent hepatic vasculature. Biliary: No intrahepatic biliary ductal dilatation. The extrahepatic bile duct is prominent, likely i n part due to age. Partially decompressed gallbladder. This may account for the apparent mild mucosal hyperemia. Pancreas: Mild parenchymal atrophy. Spleen: Normal. Adrenal glands: Normal. Kidneys and ureters: Bilateral peripelvic cysts versus mild pelvocaliectasis. No convincing evidence of hydronephrosis. The appearance is unchanged from prior CT. Several small hypodensities in the hannah l parenchyma to small to characterize but likely cysts. No nephrolithiasis. Ureters nondistended. Bladder: The configuration of the bladder suggests pelvic ligamentous laxity. A cystocele may be pres ent. Pelvic organs: Uterus may be absent or is atrophic. No adnexal masses. Bowel: Diverticulosis of the proximal sigmoid colon without wall thickening or pericolonic inflammato ry change. Mild stool burden throughout normal caliber colon. Diverticulosis of the cecum also eviden t. The appendix is normal. No bowel obstruction. Multiple large duodenal diverticula at the level of the pancreatic head. Minimal circumferential thickening of the distal esophagus may be present. Peritoneal cavity: No free fluid or intraperitoneal gas. Lymph nodes: No enlarged lymph nodes in the abdomen or pelvis. Vasculature: Atherosclerosis of the normal caliber abdominal aorta. IVC patent. Abdominal wall: Normal. Musculoskeletal: Degenerative changes of the spine. Osteopenia noted. IMPRESSION: 1. No acute intra-abdominal pathology. No bowel obstruction. 2. Possible cystocele. Correlate with gynecologic physical exam. 3. Diverticulosis coli. No diverticulitis. 4. Multiple large duodenal diverticula. 5. Mild cardiomegaly. ACT 112: Negative or not required by law. Electronically signed by: Sebastián Person M.D. 11/01/2019 7:17 AM
[2019-11-01] MEDS: APIXABAN 2.5 MG TAB PO SCH ×2 (08:20→21:11)
[2019-11-01] MEDS: CYANOCOBALAMIN 500 MCG TABLET (VITAMIN B-12) PO SCH (08:20)
[2019-11-01] MEDS: ASPIRIN 81 MG ECTAB PO SCH (08:21)
[2019-11-01] MEDS: PANTOprazole 40 MG TAB PO SCH (08:21)
[2019-11-01] MEDS: CHOLECALCIFEROL 1,000 UNITS TAB PO SCH (08:21)
[2019-11-01] MEDS: ATORVASTATIN 20 MG TAB PO SCH (08:21)
[2019-11-01] MEDS: METOPROLOL TARTRATE 25 MG TAB PO SCH ×2 (08:22→21:10)
[2019-11-01] MEDS: FOLIC ACID 1 MG TAB PO SCH (08:22)
[2019-11-01] MEDS: TIMOLOL MALEATE 0.25% OP SOLN 5 ML BTL OPL SCH (08:22)
--- NOTE | 2019-11-01 08:49 | History and Physical Report ---
DATE OF ADMISSION: 11/01/2019 CHIEF COMPLAINT: Confusion and UTI. 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 Seen by ENT and patient refused surgery and was decided to follow clinically. The patient lives alone. Daughter lives next door. Ambulates okay with cane, sometimes uses cart. Patient was here in the ER on October 29 with confusion and possible UTIs and UA was positive. She did fine. She was sent home on Keflex. Cultures came back as pansensitive E. coli. Tonight again she was confused for some short period of time. She could not remember her medications especially her blood thinners and she called EMS and brought in here. Currently, somewhat drowsy and sleepy, but alert and oriented, seem to be at baseline. Complains of frequent urination and burning urination. Denies any fever, chills. No hematuria. Normal bowel movements. No black stools or blood in the stools. No swelling in the legs. No rash. No chest pain, no shortness of breath, no cough, no nausea, no vomiting. Appetite is okay. No headache, no runny nose, no sore throat, no difficulty swallowing. No odynophagia. ALLERGIES: TETANUS TOXOID, BACTRIM. PAST MEDICAL HISTORY: As mentioned above. PAST SURGICAL HISTORY: Bladder catheter insertion, left cataract surgery, colonoscopy, cystoscopies with stent placement, exploratory laparotomy, extensive repair of vagina, fusion of ureter and bladder, freeing of bowel adhesions, laparoscopic excision of lesions, partial mastectomy, proctosigmoidoscopy, ureterolysis for retroperitoneal fibrosis, oophorectomy, vaginal hysterectomy, ureterolysis, repair of the bladder defect. MEDICATIONS: The patient is on Lipitor 20 mg p.o. daily, gabapentin 200 mg p.o. at bedtime, metoprolol 25 mg p.o. b.i.d., omeprazole 20 mg p.o. daily, Eliquis 2.5 mg b.i.d., levothyroxine 100 mcg p.o. daily, folic acid 1 mg p.o. daily, ipratropium bromide nasal spray as needed, Mucinex DM b.i.d. p.r.n., aspirin 81 mg p.o. daily, lisinopril 10 mg p.o. at bedtime, cyanocobalamin 2000 mcg daily, Colace 200 mg p.o. daily p.r.n., timolol ophthalmic solutions p.r.n., Lumigan as directed, vitamin D 2000 units p.o. daily. FAMILY HISTORY: Significant for father had stroke, sister had breast cancer. SOCIAL HISTORY: Lives alone. Daughter lives next door . No smoking history. No alcohol use, no drug use. REVIEW OF SYMPTOMS: As per HPI. Rest of review of systems negative. PHYSICAL EXAMINATION: GENERAL: The patient is old and frail, not in acute distress. VITAL SIGNS: Temperature 36.8, pulse 74, respirations 16, blood pressure 146/70, oxygen 96% on room air. HEENT: No pallor, no icterus. Pupils equal, round, reactive to light. NECK: No JVD, no neck masses, no carotid bruits. CARDIOVASCULAR: S1, S2 heard, regular rate and rhythm, no murmur, no gallop. RESPIRATORY SYSTEM: Normal AP diameter. No accessory muscle use. No wheezing, no crackles. ABDOMEN: Soft, bowel sounds present, nontender. No distention. CENTRAL NERVOUS SYSTEM: Alert and oriented. Obeys simple commands. Moves extremities. Nonfocal. EXTREMITIES: No edema, no erythema. LABORATORY DATA: WBC 7.8, hemoglobin 12.1, hematocrit 37.4, platelets 233. Sodium 139, potassium 3.7, chloride 105, bicarbonate 31, BUN 37, creatinine 0.9, serum glucose 105, calcium 9.6, total bilirubin 0.3, AST 16, ALT 28, alkaline phosphatase is 148, total creatinine kinase 88, troponin I less than 0.015. TSH is 1.03. Chest x-ray: No acute findings seen. CT of the head, preliminary report, no acute findings. CT of the abdomen and pelvis, preliminary report, no acute findings. ASSESSMENT AND PLAN: This 84-year-old female presents with confusion and urinary tract infection . 1.Metabolic encephalopathy, mostly secondary to urinary tract infection. The patient was here with confusion on October 29 possibly from urinary tract infection and discharged on Keflex . Cultures came back with pansensitive E. coli, but today again she was confused at home, cannot remember name of the medications, lasted for a few minutes, and called 911 and came to the ER.Because of the second episode, getting observed in the hospital. Labs unremarkable. No leukocytosis, afebrile. Vitals are stable. Electrolytes are okay. Troponin negative. TSH normal. CT of the head and CT of abdomen and pelvis preliminary report unremarkable. Chest x-ray unremarkable. We will start her on IV fluids normal saline at 80 mL per hour, IV Rocephin. Monitor on the medical floor.Follow repeat UA. PT and OT in a.m. 1. Papillary thyroid carcinoma, currently following clinically. 2. MTHFR deficiency, history of deep vein thrombosis, history of transient ischemic attacks, on Eliquis. 3. History of atrial fibrillation, rate controlled on Lopressor and Eliquis. 4. Hyperlipidemia, on statin. 5. History of breast cancer, status post lumpectomy and chemoradiation in 1987. 6. Hypothyroidism, on Synthroid. 7. Hypertension, on lisinopril and Lopressor. We will monitor the blood pressure. 8. Gastroesophageal reflux disease, on omeprazole 9. Deep venous thrombosis prophylaxis, on Eliquis. 10. Disposition: Observation on medical floor. PT and OT prior to discharge. Social Service to help with discharge planning. Level 1 full code. MTDD
--- NOTE | 2019-11-01 10:37 | Electrocardiogram Report ---
Test Reason : Blood Pressure : / mmHG Vent. Rate : 063 BPM Atrial Rate : 063 BPM P-R Int : 146 ms QRS Dur : 086 ms QT Int : 446 ms P-R-T Axes : 098 069 058 degrees QTc Int : 456 ms Poor data quality, interpretation may be adversely affected Sinus rhythm with occasional Premature ventricular complexes Nonspecific ST abnormality Abnormal ECG When compared with ECG of 19-JUL-2019 22:50, Premature ventricular complexes are now Present Confirmed by Hay Hollis ([id number]) on 11/01/2019 10:37:19 AM Referred By: REFERRED SELF Confirmed By:Hay Hollis
--- NOTE | 2019-11-01 11:20 | Hospitalist Progress Note ---
Date of Service November 01, 2019 Assessment & Plan (1) Acute confusion: Metabolic encephalopathy, Scented with acute confusion, disorientation metabolic encephalopathy secondary to dehydration/urine tract infection Admission to hospital 10/29/2019, admitted with UTI: Urine culture pansensitive E. coli Was discharged home with p.o. Keflex Patient is started empirically with IV Rocephin, Urine culture ordered Antibiotic will be adjusted once culture report and sensitivity to be available Mental status gradually improved to baseline No focal neurological deficit CT head noncontrast shows no acute change MTHFR deficiency/hypercoagulable status history of deep vein thrombosis, TIA No acute neurological event noted this admission, CT head noncontrast, no acute change Continue Eliquis Atrial fibrillation: Chronic Rate control on Lopressor, on Eliquis History of breast cancer status post lumpectomy and chemoradiation in 1987. Hypertension, on lisinopril and Lopressor. Deep venous thrombosis prophylaxis, on Eliquis. CODE STATUS: Full code Disposition: Ordered for PT OT evaluation fall precaution, social service consult for discharge planning Subjective No fever chills no nausea vomiting no abdominal pain or discomfort Review of Systems Review of Systems: All systems reviewed & are unremarkable except as noted in HPI & below Physical Exam Constitutional: WD/WN, vitals as above no acute distress Eyes: + anicteric sclerae ENMT: external ear and nose normal, oropharynx normal Respiratory: normal respiratory effort, lungs clear to auscultation Cardiovascular: RRR, no murmur, no edema Gastrointestinal (Abdomen): normal bowel sounds, soft, nontender, no hepatosplenomegaly Neurologic: PERRL, EOMI, accommodation nl, no face palsy, no dysarthria Psychiatric: Orientation: alert and oriented to person Results & Data Vital Signs (Past 12 Hours) Vital Signs Temp Pulse Pulse Resp BP BP Pulse Ox 11/01/19 08:40 62 11/01/19 07:31 36.3 C L 56 L 18 159/81 H 99 11/01/19 05:26 36.5 C 74 20 204/98 H 99 11/01/19 05:00 36.5 C 74 20 204/98 H 99 11/01/19 04:00 70 18 174/86 H 11/01/19 03:00 75 16 146/70 H 96 11/01/19 01:42 66 18 177/84 H 98 11/01/19 01:09 98 11/01/19 00:49 36.8 C 74 20 134/78 99
[2019-11-01] MEDS: lisinopriL 10 MG TAB PO SCH (21:10)
[2019-11-01] MEDS: GABAPENTIN 100 MG CAP PO SCH (21:11)
[2019-11-01] MEDS: BIMATOPROST 0.01% OP SOLN 2.5 ML BTL OP SCH (21:11)
[2019-11-02] MEDS: cefTRIAXone SODIUM 1,000 MG in DEXTROSE 5% 50 ML IV SCH (06:11)
[2019-11-02] MEDS: LEVOTHYROXINE SODIUM 75 MCG TABLET PO SCH (06:11)
[2019-11-02] MEDS: ATORVASTATIN 20 MG TAB PO SCH (07:52)
[2019-11-02] MEDS: FOLIC ACID 1 MG TAB PO SCH (07:52)
[2019-11-02] MEDS: PANTOprazole 40 MG TAB PO SCH (07:52)
[2019-11-02] MEDS: CHOLECALCIFEROL 1,000 UNITS TAB PO SCH (07:52)
[2019-11-02] MEDS: CYANOCOBALAMIN 500 MCG TABLET (VITAMIN B-12) PO SCH (07:52)
[2019-11-02] MEDS: METOPROLOL TARTRATE 25 MG TAB PO SCH ×2 (07:53→20:36)
[2019-11-02] MEDS: APIXABAN 2.5 MG TAB PO SCH ×2 (07:53→20:35)
[2019-11-02] MEDS: ASPIRIN 81 MG ECTAB PO SCH (07:53)
[2019-11-02] MEDS: TIMOLOL MALEATE 0.25% OP SOLN 5 ML BTL OPL SCH (07:54)
--- NOTE | 2019-11-02 19:22 | Hospitalist Progress Note ---
Date of Service November 02, 2019 Assessment & Plan (1) Acute confusion: Metabolic encephalopathy, Acute confusion, disorientation metabolic encephalopathy secondary to dehydration/urine tract infection Admission to hospital 10/29/2019, admitted with UTI: Urine culture pansensitive E. coli Was discharged home with p.o. Keflex Patient is started empirically with IV Rocephin, Urine culture ordered Antibiotic will be adjusted once culture report and sensitivity to be available Mental status gradually improved to baseline No focal neurological deficit CT head noncontrast shows no acute change MTHFR deficiency/hypercoagulable status history of deep vein thrombosis, TIA No acute neurological event noted this admission, CT head noncontrast, no acute change Continue Eliquis Atrial fibrillation: Chronic Rate control on Lopressor, on Eliquis History of breast cancer status post lumpectomy and chemoradiation in 1987. Hypertension, on lisinopril and Lopressor. Deep venous thrombosis prophylaxis, on Eliquis. CODE STATUS: Full code Disposition: Ordered for PT OT evaluation fall precaution, social service consult for discharge planning Subjective Pt is sitting up in the chair, in no acute distress. Denies any fever, chills, chest pain, shortness of breath, abd. pain, nausea or vomiting. Says she has hx of frequent UTIs and inquires about different Abx treatments. Review of Systems Review of Systems: All systems reviewed & are unremarkable except as noted in HPI & below Constitutional: no fever and no chills Respiratory: no cough and no dyspnea Cardiovascular: no chest pain, no palpitations and no edema Gastrointestinal: no abdominal pain, no nausea and no vomiting Physical Exam Physical Exam: Constitutional: WD/WN, vitals as above no acute distress Eyes: + anicteric sclerae ENMT: external ear and nose normal, oropharynx normal Respiratory: normal respiratory effort, lungs clear to auscultation Cardiovascular: RRR, no murmur, no edema Gastrointestinal (Abdomen): normal bowel sounds, soft, nontender, no hepatosplenomegaly Neurologic: PERRL, EOMI, accommodation nl, no face palsy, no dysarthria Psychiatric: Orientation: alert and oriented to person, place and time. Answers most questions appropriately. Results & Data Vital Signs (Past 12 Hours) Vital Signs Temp Pulse Resp BP Pulse Ox 11/02/19 14:54 36.6 C 58 L 16 133/74 96 Medications Administered Current Inpatient Medications Acetaminophen (Tylenol) 650 mg PO Q4H PRN PRN Reason: pain/fever Stop: 12/01/19 04:48 Apixaban (Eliquis) 2.5 mg PO BID [facility] Stop: 12/01/19 08:59 Last Admin: 11/02/19 07:53 Dose: 2.5 mg Documented by: Aspirin (Ecotrin Ectab) 81 mg PO [facility] Stop: 12/01/19 08:59 Last Admin: 11/02/19 07:53 Dose: 81 mg Documented by: Atorvastatin Calcium (Lipitor) 20 mg PO [facility] Stop: 12/01/19 08:59 Last Admin: 11/02/19 07:52 Dose: 20 mg Documented by: Bimatoprost (Lumigan 0.01%) 1 drops OP [facility] Stop: 12/01/19 20:59 Last Admin: 11/01/19 21:11 Dose: 1 drops Documented by: Cyanocobalamin (Vitamin B-12) 2,000 mcg PO [facility] Stop: 12/01/19 08:59 Last Admin: 11/02/19 07:52 Dose: 2,000 mcg Documented by: Folic Acid (Folvite) 1 mg PO [facility] Stop: 12/01/19 08:59 Last Admin: 11/02/19 07:52 Dose: 1 mg Documented by: Gabapentin (Neurontin) 200 mg PO [facility] Stop: 12/01/19 20:59 Last Admin: 11/01/19 21:11 Dose: 200 mg Documented by: Hydralazine HCl (Hydralazine Hcl) 10 mg IV Q6H PRN PRN Reason: Hypertension Stop: 12/01/19 05:14 Ceftriaxone Sodium 1,000 mg/ (Dextrose) 50 mls @ 100 mls/hr IV Q24H [facility]; Protocol Stop: 11/11/19 05:44 Last Infusion: 11/02/19 06:40 Dose: Infused Documented by: Ipratropium [place] (Atrovent Nasal [place] 0.06%) 1 sprays [facility] TID PRN PRN Reason: ALLERGIES Stop: 12/01/19 05:47 [facility]: 12/01/19 06:29 Last Admin: 11/02/19 06:11 Dose: 75 mcg Documented by: Lisinopril (Zestril) 10 mg PO HS [facility] Stop: 12/01/19 20:59 Last Admin: 11/01/19 21:10 Dose: 10 mg Documented by: Metoprolol Tartrate (Lopressor) 25 mg PO BID [facility] Stop: 12/01/19 08:59 Last Admin: 11/02/19 07:53 Dose: 25 mg Documented by: Ondansetron HCl (Zofran) 4 mg IV Q6H PRN PRN Reason: Nausea Stop: 12/01/19 04:48 Pantoprazole Sodium (Protonix) 40 mg PO [facility] Stop: 12/01/19 08:59 Last Admin: 11/02/19 07:52 Dose: 40 mg Documented by: Polyethylene Glycol (Miralax Powder Packet) 17 gm PO DAILY PRN PRN Reason: Constipation Stop: 12/01/19 04:48 Timolol Maleate (Timoptic 0.25% Oph) 1 drops OPL [facility] Stop: 12/01/19 08:59 Last Admin: 11/02/19 07:54 Dose: 1 drops Documented by: Vitamin D (Vitamin D3) 2,000 units PO [facility] Stop: 12/01/19 08:59 Last Admin: 11/02/19 07:52 Dose: 2,000 units Documented by:
[2019-11-02] MEDS: BIMATOPROST 0.01% OP SOLN 2.5 ML BTL OP SCH (20:36)
[2019-11-02] MEDS: lisinopriL 10 MG TAB PO SCH (20:37)
[2019-11-02] MEDS: GABAPENTIN 100 MG CAP PO SCH (20:37)
[2019-11-02] MEDS: HydrALAZINE HCL 20 MG/ML VIAL IV PRN (22:38)
[2019-11-03] MEDS: cefTRIAXone SODIUM 1,000 MG in DEXTROSE 5% 50 ML IV SCH (05:32)
[2019-11-03] MEDS: LEVOTHYROXINE SODIUM 75 MCG TABLET PO SCH (05:32)
[2019-11-03] MEDS: TIMOLOL MALEATE 0.25% OP SOLN 5 ML BTL OPL SCH (08:15)
[2019-11-03] MEDS: METOPROLOL TARTRATE 25 MG TAB PO SCH ×2 (08:15→20:33)
[2019-11-03] MEDS: FOLIC ACID 1 MG TAB PO SCH (08:15)
[2019-11-03] MEDS: ASPIRIN 81 MG ECTAB PO SCH (08:16)
[2019-11-03] MEDS: CYANOCOBALAMIN 500 MCG TABLET (VITAMIN B-12) PO SCH (08:16)
[2019-11-03] MEDS: CHOLECALCIFEROL 1,000 UNITS TAB PO SCH (08:16)
[2019-11-03] MEDS: PANTOprazole 40 MG TAB PO SCH (08:16)
[2019-11-03] MEDS: APIXABAN 2.5 MG TAB PO SCH ×2 (08:16→20:37)
[2019-11-03] MEDS: ATORVASTATIN 20 MG TAB PO SCH (08:16)
--- NOTE | 2019-11-03 09:07 | Hospitalist Progress Note ---
Date of Service November 03, 2019 Assessment & Plan (1) Acute confusion: Metabolic encephalopathy, Acute confusion, disorientation metabolic encephalopathy secondary to dehydration/urine tract infection Admission to hospital 10/29/2019, admitted with UTI: Urine culture pansensitive E. coli Was discharged home with p.o. Keflex Patient is started empirically with IV Rocephin, Urine culture (11/01) - less than 1,000 colonies/mL Urine cltx (10/29) - E.coli pansensitive IV Antibiotic switch to PO cefuroxime Mental status gradually improved to baseline No focal neurological deficit CT head noncontrast shows no acute change MTHFR deficiency/hypercoagulable status history of deep vein thrombosis, TIA No acute neurological event noted this admission, CT head noncontrast, no acute change Continue Eliquis Atrial fibrillation: Chronic Rate control on Lopressor, on Eliquis History of breast cancer status post lumpectomy and chemoradiation in 1987. Hypertension, on lisinopril and Lopressor. Deep venous thrombosis prophylaxis, on Eliquis. CODE STATUS: Full code Disposition: Ordered for PT/ OT evaluation fall precaution, social service consult for discharge planning per PT/OT patient is not safe to go home, however patient insists on being discharged home Subjective Pt is sitting up in the chair, in no acute distress. Denies any fever, chills, chest pain, shortness of breath, abd. pain, nausea or vomiting. Review of Systems Review of Systems: All systems reviewed & are unremarkable except as noted in HPI & below Constitutional: no fever and no chills Respiratory: no cough and no dyspnea Cardiovascular: no chest pain, no palpitations and no edema Gastrointestinal: no abdominal pain, no nausea and no vomiting Genitourinary: no dysuria Physical Exam Physical Exam: Constitutional: elderly female sitting up in the chair, WD/WN, in no acute distress Eyes: + anicteric sclerae ENMT: external ear and nose normal, oropharynx normal Respiratory: normal respiratory effort, lungs clear to auscultation Cardiovascular: RRR, no murmur, no edema Gastrointestinal (Abdomen): normal bowel sounds, soft, nontender, nondistended Neurologic: PERRL, EOMI, accommodation nl, no face palsy, no dysarthria, moves extremities spontaneously Psychiatric: Orientation: alert and oriented to person, place and time. Speech is slow but fluent. Answers most questions appropriately. Results & Data Vital Signs (Past 12 Hours) Vital Signs Temp Pulse Resp BP Pulse Ox 11/03/19 07:10 36.4 C L 85 16 145/84 H 98 11/02/19 23:24 72 152/91 H 11/02/19 22:05 36.5 C 83 16 191/74 H 90 Medications Administered Current Inpatient Medications Acetaminophen (Tylenol) 650 mg PO Q4H PRN PRN Reason: pain/fever Stop: 12/01/19 04:48 Apixaban (Eliquis) 2.5 mg PO BID [facility] Stop: 12/01/19 08:59 Last Admin: 11/03/19 08:16 Dose: 2.5 mg Documented by: Aspirin (Ecotrin Ectab) 81 mg PO [facility] Stop: 12/01/19 08:59 Last Admin: 11/03/19 08:16 Dose: 81 mg Documented by: Atorvastatin Calcium (Lipitor) 20 mg PO [facility] Stop: 12/01/19 08:59 Last Admin: 11/03/19 08:16 Dose: 20 mg Documented by: Bimatoprost (Lumigan 0.01%) 1 drops OP [facility] Stop: 12/01/19 20:59 Last Admin: 11/02/19 20:36 Dose: 1 drops Documented by: Cyanocobalamin (Vitamin B-12) 2,000 mcg PO [facility] Stop: 12/01/19 08:59 Last Admin: 11/03/19 08:16 Dose: 2,000 mcg Documented by: Folic Acid (Folvite) 1 mg PO [facility] Stop: 12/01/19 08:59 Last Admin: 11/03/19 08:15 Dose: 1 mg Documented by: Gabapentin (Neurontin) 200 mg PO [facility] Stop: 12/01/19 20:59 Last Admin: 11/02/19 20:37 Dose: 200 mg Documented by: Hydralazine HCl (Hydralazine Hcl) 10 mg IV Q6H PRN PRN Reason: Hypertension Stop: 12/01/19 05:14 Last Admin: 11/02/19 22:38 Dose: 10 mg Documented by: Ceftriaxone Sodium 1,000 mg/ (Dextrose) 50 mls @ 100 mls/hr IV Q24H [facility]; Protocol Stop: 11/11/19 05:44 Last Infusion: 11/03/19 06:39 Dose: Infused Documented by: Ipratropium Monarch (Atrovent Nasal [place] 0.06%) 1 sprays [place] TID PRN PRN Reason: ALLERGIES Stop: 12/01/19 05:47 Levothyroxine Sodium (Synthroid) 75 mcg PO DAILYBB [facility] Stop: 12/01/19 06:29 Last Admin: 11/03/19 05:32 Dose: 75 mcg Documented by: Lisinopril (Zestril) 10 mg PO HS [facility] Stop: 12/01/19 20:59 Last Admin: 11/02/19 20:37 Dose: 10 mg Documented by: Metoprolol Tartrate (Lopressor) 25 mg PO BID [facility] Stop: 12/01/19 08:59 Last Admin: 11/03/19 08:15 Dose: 25 mg Documented by: Ondansetron HCl (Zofran) 4 mg IV Q6H PRN PRN Reason: Nausea Stop: 12/01/19 04:48 Pantoprazole Sodium (Protonix) 40 mg PO [facility] Stop: 12/01/19 08:59 Last Admin: 11/03/19 08:16 Dose: 40 mg Documented by: Polyethylene Glycol (Miralax Powder Packet) 17 gm PO DAILY PRN PRN Reason: Constipation Stop: 12/01/19 04:48 Timolol Maleate (Timoptic 0.25% Oph) 1 drops OPL [facility] Stop: 12/01/19 08:59 Last Admin: 11/03/19 08:15 Dose: 1 drops Documented by: Vitamin D (Vitamin D3) 2,000 units PO [facility] Stop: 12/01/19 08:59 Last Admin: 11/03/19 08:16 Dose: 2,000 units Documented by:
[2019-11-03] MEDS: BIMATOPROST 0.01% OP SOLN 2.5 ML BTL OP SCH (20:34)
[2019-11-03] MEDS: cefUROXime axetil 250 MG TABLET PO SCH (20:36)
[2019-11-03] MEDS: lisinopriL 10 MG TAB PO SCH (20:36)
[2019-11-03] MEDS: GABAPENTIN 100 MG CAP PO SCH (20:37)
[2019-11-04] MEDS: LEVOTHYROXINE SODIUM 75 MCG TABLET PO SCH (05:40)
[2019-11-04] MEDS: HydrALAZINE HCL 20 MG/ML VIAL IV PRN (05:43)
[2019-11-04 06:42] LABS: Creatinine Clr Calc Pharmacy 41.4 ml/min; Est GFR (African American) 90.9; Est GFR (Non-African American) 78.5
[2019-11-04 07:20] VITALS: TEMP 97.3; O2SAT 96
[2019-11-04 07:44] VITALS: BP 171/83
[2019-11-04] MEDS: PANTOprazole 40 MG TAB PO SCH (07:45)
[2019-11-04] MEDS: CYANOCOBALAMIN 500 MCG TABLET (VITAMIN B-12) PO SCH (07:45)
[2019-11-04] MEDS: cefUROXime axetil 250 MG TABLET PO SCH (07:45)
[2019-11-04] MEDS: FOLIC ACID 1 MG TAB PO SCH (07:45)
[2019-11-04] MEDS: ASPIRIN 81 MG ECTAB PO SCH (07:45)
[2019-11-04] MEDS: METOPROLOL TARTRATE 25 MG TAB PO SCH (07:45)
[2019-11-04] MEDS: CHOLECALCIFEROL 1,000 UNITS TAB PO SCH (07:46)
[2019-11-04] MEDS: TIMOLOL MALEATE 0.25% OP SOLN 5 ML BTL OPL SCH (07:46)
[2019-11-04] MEDS: ATORVASTATIN 20 MG TAB PO SCH (07:46)
[2019-11-04] MEDS: APIXABAN 2.5 MG TAB PO SCH (11:06)
--- NOTE | 2019-11-04 14:38 | Discharge Summary ---
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 Seen by ENT and patient refused surgery and was decided to follow clinically. The patient lives alone. Daughter lives next door. Ambulates okay with cane, sometimes uses cart. Patient was here in the ER on October 29 with confusion and possible UTIs and UA was positive. She did fine. She was sent home on Keflex. Cultures came back as pansensitive E. coli. Tonight again she was confused for some short period of time. She could not remember her medications especially her blood thinners and she called EMS and brought in here. Currently, somewhat drowsy and sleepy, but alert and oriented, seem to be at baseline. Complains of frequent urination and burning urination. Denies any fever, chills. No hematuria. Normal bowel movements. No black stools or blood in the stools. No swelling in the legs. No rash. No chest pain, no shortness of breath, no cough, no nausea, no vomiting. Appetite is okay. No headache, no runny nose, no sore throat, no difficulty swallowing. No odynophagia. Admission Exam Per Admitting Provider GENERAL: The patient is old and frail, not in acute distress. VITAL SIGNS: Temperature 36.8, pulse 74, respirations 16, blood pressure 146/70, oxygen 96% on room air. HEENT: No pallor, no icterus. Pupils equal, round, reactive to light. NECK: No JVD, no neck masses, no carotid bruits. CARDIOVASCULAR: S1, S2 heard, regular rate and rhythm, no murmur, no gallop. RESPIRATORY SYSTEM: Normal AP diameter. No accessory muscle use. No wheezing, no crackles. ABDOMEN: Soft, bowel sounds present, nontender. No distention. CENTRAL NERVOUS SYSTEM: Alert and oriented. Obeys simple commands. Moves extremities. Nonfocal. EXTREMITIES: No edema, no erythema. Principal Diagnosis Metabolic encephalopathy secondary to dehydration/urinary tract infection Discharge Exam Constitutional: elderly female sitting up in the chair, WD/WN, in no acute distress Eyes: + anicteric sclerae, very poor vision ENMT: external ear and nose normal, oropharynx normal Respiratory: normal respiratory effort, lungs clear to auscultation, no wheezing, rhonchi or crackles Cardiovascular: RRR, no murmur, no edema Gastrointestinal (Abdomen): normal bowel sounds, soft, nontender, nondistended Neurologic: PERRL, EOMI, accommodation nl, no face palsy, no dysarthria, moves extremities spontaneously Psychiatric: Orientation: alert and oriented to person, place and time. Speech is slow but fluent. Answers most questions appropriately. Discharge Data Allergies Allergy/AdvReac Type Severity Reaction Status Date / Time tetanus toxoid, adsorbed Allergy Mild SWELLING Verified 11/01/19 01:35 AND REDNESS sulfamethoxazole AdvReac Dizziness Verified 11/01/19 01:35 [From Bactrim] trimethoprim [From Bactrim] AdvReac Dizziness Verified 11/01/19 01:35 Consultations 11/01/19 02:54 ED Decision to Admit Stat 11/01/19 04:49 Consult Case Management - Discharge Planning Routine Ordered Studies 11/01/19 01:09 CT head/brain wo con Urgent FINDINGS: No acute intracranial hemorrhage, midline shift, intracranial mass, hydrocephalus, territorial ischemia or abnormal extra-axial collection. Age- related involutional changes. Patchy white matter hypodensities suggest chronic microvascular ischemic disease. Cerebral vascular calcifications are noted. The calvarium is intact. Small right mastoid effusion. The left mastoid air cells are generally clear. Paranasal sinuses are clear. Soft tissues are unremarkable. Prior left-sided wedge replacement. IMPRESSION: No acute intracranial abnormality. 11/01/19 02:30 CT abd pelvis IV con only Urgent IMPRESSION: 1. No acute intra-abdominal pathology. No bowel obstruction. 2. Possible cystocele. Correlate with gynecologic physical exam. 3. Diverticulosis coli. No diverticulitis. 4. Multiple large duodenal diverticula. 5. Mild cardiomegaly. Hospital Course (1) Acute confusion: Metabolic encephalopathy, Acute confusion, disorientation metabolic encephalopathy secondary to dehydration/urine tract infection Admission to hospital 10/29/2019, admitted with UTI: Urine culture pansensitive E. coli Was discharged home with p.o. Keflex Patient is started empirically with IV Rocephin, Urine culture (11/01) - less than 1,000 colonies/mL Urine cltx (10/29) - E.coli pansensitive IV Antibiotic switch to PO cefuroxime Mental status gradually improved to baseline No focal neurological deficit CT head noncontrast shows no acute change MTHFR deficiency/hypercoagulable status history of deep vein thrombosis, TIA No acute neurological event noted this admission, CT head noncontrast, no acute change Continue Eliquis Atrial fibrillation: Chronic Rate control on Lopressor, on Eliquis History of breast cancer status post lumpectomy and chemoradiation in 1987. Hypertension, on lisinopril and Lopressor. Disposition: Ordered for PT/ OT evaluation fall precaution, social service consult for discharge planning per PT/OT patient is not safe to go home, however patient insists on being discharged home, discussed this with pt's daughter who says that her mother likes to be as independent as possible and that she will never agree on going to rehab. Daughter lives next door from her mom but has a multimedia developer job and can not always assist her. We all agreed (including the pt) though that pt could use home health. I contacted CM and home health is set up on discharge. Total Time Total Time Spent Total Time Spent (In Minutes): 40 Total Time Includes: Examination of the Patient, Discharge Planning and Medication Reconciliation Discharge Plan Discharge Items Patient Disposition: Home - Home Health Services Reason For Visit: CONFUSION Discharge Diagnosis: Metabolic encephalopathy secondary to dehydration/urinary tract infection Activity: Resume your previous activity Activity Comment: as tolerated, pace yourself, ask for help as needed Non-emergency contact: Primary Care Provider Call non-emergency contact if: you have any medication questions and your symptoms worsen Follow-up/Referrals: Neo Plascencia MD [Primary Care Provider] - 11/09/19 11:45 am Diet: Heart Healthy Addtl Attending Provider Instructions: Please finish taking antibiotics, your last dose will be tomorrow evening. Make sure to follow-up with your primary care provider, your appointment was scheduled for November 09. Monitor your blood pressure at home, and keep a log of these numbers. Make sure to bring this log to your primary care provider so your blood pressure medications could be adjusted as needed. We arranged home health/home physical therapy for you. As discussed previously, we recommend inpatient rehab for you, however because you prefer to be home, please work with home health agency. Pending Studies at Discharge: No Stand-Alone Forms: My [facility], Smoking Cessation Medications and DC Order Prescriptions: New cefuroxime axetil 250 mg Tablet 250 mg PO BID Qty: 3 RF: 0 Continued folic acid 1 mg Tablet 1 mg PO QAM Qty: 0 RF: 0 cholecalciferol (vitamin D3) 1,000 unit Capsule 2,000 unit PO QAM Qty: 0 RF: 0 aspirin 81 mg Tablet,Delayed Release (Dr/Ec) 81 mg PO QAM Qty: 0 RF: 0 atorvastatin [Lipitor] 20 mg Tablet 20 mg PO QAM Qty: 0 RF: 0 lisinopril 10 mg Tablet 10 mg PO HS Qty: 0 RF: 0 omeprazole 20 mg Capsule,Delayed Release(Dr/Ec) 20 mg PO QAM Qty: 0 RF: 0 Eliquis 2.5 mg Tablet 2.5 mg PO BID Qty: 0 RF: 0 cyanocobalamin (vitamin B-12) 1,000 mcg Capsule 2,000 mcg PO QAM Qty: 0 RF: 0 metoprolol tartrate 25 mg tablet 25 mg PO BID RF: 0 Lumigan 0.01 % Drops 1 drp OPB HS RF: 0 gabapentin 100 mg capsule 200 mg PO HS Qty: 60 RF: 5 levothyroxine [Synthroid] 75 mcg tablet 75 mcg PO QAM RF: 0 timolol maleate 0.5 % drops 1 drp OPL QAM RF: 0 ipratropium bromide 0.03 % spray,non-aerosol 2 spray intranasal TID PRN (Reason: Nasal Congestion) RF: 0 Discontinued cephalexin [Keflex] 500 mg capsule 500 mg PO TID 7 Days Qty: 21 RF: 0 Discharge Orders: Discharge Order (Routine); Ordered 11/04/19 Ordered By: Ronald Castaneda Admission Data Admit Date/Time: 11/01/19 18:36 Attending Provider: Ronald Castaneda Admit Provider: Tricia Espinal Primary Care Provider: Neo Plascencia Other Providers: Lukas Gan ; Teddy,Tricia H. ; [place] Other Interventions: Discharge Summary Assessment (RN) Last Done: 11/04/19 14:47 DC Date/Time DO NOT enter until pt leaves facility: 11/04/19 16:34
[2019-11-04 14:48] VITALS: PULSE 65
== END 2019-11-04 16:34 | disposition home health service (06) | DRG 689 ==
LOC: 4W 00:47 → ED 00:47 → 4W 04:26 → SUATTDRO 18:36

== ENCOUNTER 2020-06-10 14:06 | Observation (INO) ==
[2020-06-10] MEDS ORDERED: OPTIRAY 320 125ml IV ONE (14:29)
[2020-06-10] MEDS ORDERED: SODIUM CHLORIDE 0.9% 1000ML 1,000 ML IV SCH ×2 (14:30→16:53)
--- NOTE | 2020-06-10 14:31 | CT Scan Report ---
CT OF THE HEAD WITHOUT CONTRAST CLINICAL HISTORY: Stroke evaluation COMPARISON STUDY: Head CT November 01, 2019. CT DOSE: 537.48 mGy.cm TECHNIQUE: Helical axial images of the head were obtained without IV contrast. Automated exposure con trol was utilized for the study. A dose lowering technique was utilized adhering to the principles o f ALARA. FINDINGS: No acute intracranial hemorrhage, midline shift or mass effect is present. The ventricular system is unremarkable. The basilar cisterns are patent. No extra-axial collections are present. Whit e matter hypodensities are unchanged and suggest small vessel disease. There are no findings to sugge st acute dural sinus thrombosis or acute territorial infarct. No significant calvarial abnormalities are present. Visualized portions of the sinuses and mastoid air cells are clear. IMPRESSION: No acute intracranial findings. No change in appearance of the brain. ACT 112: Negative or not required by law. Electronically signed by: Dallin Cardona M.D. 06/10/2020 2:30 PM
--- NOTE | 2020-06-10 14:45 | CT Scan Report ---
CTA ANGIOGRAPHY OF THE HEAD CLINICAL HISTORY: Stroke alert. Confusion. COMPARISON STUDY: MRA of the head March 27, 2019. Head CT November 01, 2019. CTA of the head September 192016. TECHNIQUE: Helical axial images of the head were obtained following uneventful intravenous administr ation of 120 cc of Optiray 320. Sagittal and coronal reconstructions were viewed as well as maximal i ntensity projections on an independent 3-D workstation. Automated exposure control was utilized for the study. A dose lowering technique was utilized adhering to the principles of ALARA. FINDINGS: No acute intracranial hemorrhage, midline shift or mass effect is present. Ventricular syst em is normal. Basilar cisterns are patent. There are no extra axial collections. White matter hypoden sity suggests small vessel disease. The bilateral M1, M2, A1 and A2 segments are patent. There is mil d calcified plaque within the bilateral cavernous carotids without significant stenosis. persis tence of the right posterior cerebral artery is noted. There is severe stenosis of this vessel is oth erwise, the posterior circulation is intact. No central vessel occlusion is noted. There is no dissec tion. IMPRESSION: 1. No central vessel occlusion. 2. 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 ACT 112: Negative or not required by law. Electronically signed by: Dallin Cardona M.D. 06/10/2020 2:43 PM
--- NOTE | 2020-06-10 14:45 | Emergency Department Note ---
Impression & Plan Acute confusion, Acute UTI (urinary tract infection), Expressive aphasia ED Provider Note INFORMANT: Patient daughter ED PROVIDER(S): Maximo Cha MD CHIEF COMPLAINT: Consider PLAN: Disposition: Admitted Condition: Good MEDICAL DECISION MAKING: Patient presented with acute confusion. She has a history of TIA and also urinary tract infection. The patient was made a stroke alert. Medications were reviewed and she was found to be on Eliquis. She is not a TPA candidate. CT imaging of the head did not reveal any obvious acute findings. Laboratory testing revealed an unremarkable CBC and chemistry panel. The patient's urinalysis was significant for signs of infection. She was treated with IV Rocephin. She was gently hydrated. On reassessment the patient was feeling somewhat better and daughter noted her word finding was improved. I did consult with the [facility] hospitalist service. The patient will be evaluated and admitted by Dr. Espinal. Triage Nursing notes reviewed and agree them. Additional history obtained from patient's daughter Prior medical records reviewed pansensitive E. coli UTI Vital Signs: reviewed and remarkable for no significant abnormalities Differential diagnosis: CVA, TIA, infection, dehydration, metabolic abnormality, hypo/hyperglycemia, electrolyte disturbance, anemia, hypoxia, cardiac sources, intracerebral event, toxicologic, neurologic, as well as other pathologies. Diagnostics interpreted by me: ECG: Rate: 60 Rhythm:Normal sinus [place]:Normal QRS:Normal ST segements:No elevation or depression. Nonspecific ST. Other:No PACs or PVCs Cardiac Monitoring:Cardiac monitoring ordered by me: The patient was placed on continuous cardiac monitoring and observed. It revealed a normal sinus rhythm at 63 beats per minute without ectopy or evidence of dysrhythmia. Imaging studies: Chest x-ray. Findings: A chest x-ray was performed and revealed no pneumothorax, effusion, infiltrate, pulmonary edema, free air under the diaphragm, or wide mediastinum. Impression: No acute disease. CT angiogram of the head and neck and dry CT of the head did not reveal any evidence of acute pathology. Consultation(s): Dr. Man[facility] hospitalist service, Edith Lozada PA-C HPI: The patient is a 84 year old female who presents to the Emergency Room with complaints of confusion. This started 1315 hrs and is persisting. Patient's daughter is present and states that she was in conversation with her and then noticed that she was having difficulty finding her words and was confused about what they were doing. She has had this before and was diagnosed with urinary tract infections. She does also have a history of TIA. The patient has found no relieving factors. Current pain is rated as 0/10. Pt denies LOC, headache, fevers, chills, diaphoresis, visual changes, neck pain, chest pain, breathing difficulties, nausea, vomiting, abdominal pain, back pain, melena, hematochezia, urinary symptoms, numbness, focal weakness, lymphadenopathy, rash, or other complaints. ROS: See above HPI for pertinent positives & negatives. A total of 10 systems reviewed and were otherwise negative. PAST MEDICAL HISTORY:See Below TIA, UTI PAST SURGICAL HISTORY:See Below FAMILY HISTORY:See Below SOCIAL HISTORY:See Below lives alone HOME MEDICATIONS:See Below ALLERGIES:See Below VITALS:See Below PHYSICAL EXAMINATION: GENERAL: Awake, alert, mildly anxious-appearing, in no distress HENT: Normocephalic, atraumatic. Oropharynx unremarkable. EYES: Normal conjunctiva. Sclera non-icteric. EOMI. Her low. NECK: Inspection normal. Non-tender. Supple. No nuchal rigidity. FROM. No masses. RESPIRATORY: Clear to auscultation. No wheezes. No rales. Normal respiratory effort. CARDIAC: Normal rate. Normal rhythm. No murmurs. No rubs. Extremities warm and well perfused. Pulses equal. No JVD. GI: Soft, non-distended. No tenderness to palpation. No rebound or guarding. No masses. RECTAL: Deferred. MUSCULOSKELETAL: Atraumatic. Chest examination reveals no tenderness. The back is symmetrical on inspection without obvious abnormality. There is no CVA tenderness to palpation. No joint edema. LOWER EXTREMITIES: Calves are equal size bilaterally and non-tender. No edema. No discoloration. NEURO: Mildly confused sensorium. No sensory or motor deficits noted. Speech is clear but difficulty finding some words. She has no drift and normal rapid alternating movements. Cranial nerves II through XII intact. SKIN: No rash or jaundice noted. ED COURSE: Critical Care: None Maximo Cha MD Past Med/Surg History Medical History (Updated 06/10/20 @ 16:32 by Maximo Cha MD) Atrial fibrillation Atrial fibrillation with RVR Central retinal vein occlusion of right eye Dyslipidemia History of breast cancer "intraductal carcinoma left breast, s/p lumpectomy" History of osteoporosis History of pulmonary embolism HTN (hypertension) Hx of MTHFR mutation Papillary carcinoma of thyroid SBO (small bowel obstruction) Small bowel obstruction TIA (transient ischemic attack) UGIB (upper gastrointestinal bleed) Uterine prolapse UTI (urinary tract infection) Surgical History H/O oophorectomy History of bladder surgery History of cataract surgery History of hysterectomy S/P exploratory laparotomy lysis of adhesions Status post partial mastectomy "left breast, DCIS" Family History Father Stroke Social History Smoking Status: Never smoker Second Hand Exposure: No; Hx Alcohol Use: No Hx Substance Use: No Preferred Language: Cuban Communication Ability: Effective Visual Impairment: Limited Hearing Ability: Normal Doctor Of Radiology Required: No Beliefs That Will Affect Care: None Current Living Situation: Alone Current Living Situation Comment: One daughter lives next door to patient Feels Safe at Home: Yes Allergies Allergies Allergy/AdvReac Type Severity Reaction Status Date / Time tetanus toxoid, adsorbed Allergy Mild SWELLING Verified 06/10/20 16:03 AND REDNESS sulfamethoxazole AdvReac Dizziness Verified 06/10/20 16:03 [From Bactrim] trimethoprim [From Bactrim] AdvReac Dizziness Verified 06/10/20 16:03 Home Meds Home Medications Medication Instructions Recorded Confirmed cholecalciferol (vitamin D3) 2,000 unit PO QAM #0 03/21/17 06/10/20 folic acid 1 mg PO QAM #0 03/21/17 06/10/20 aspirin 81 mg PO QAM #0 10/08/17 06/10/20 atorvastatin [Lipitor] 20 mg PO QAM #0 tab 02/11/18 06/10/20 omeprazole 20 mg PO QAM #0 02/11/18 06/10/20 Eliquis 2.5 mg PO BID #0 tab 03/29/18 06/10/20 cyanocobalamin (vitamin B-12) 2,000 mcg PO QAM #0 03/29/18 06/10/20 Lumigan 1 drp OPB HS 10/11/18 06/10/20 metoprolol tartrate 12.5 mg PO BID 10/11/18 06/10/20 levothyroxine [Synthroid] 75 mcg PO QAM 03/26/19 06/10/20 timolol maleate 1 drp OPL QAM 03/26/19 06/10/20 Previous Rx's Medication Instructions Recorded gabapentin 200 mg PO HS #60 cap 10/15/18 Results & Data (ED) Vital Signs Vital Signs - 24 hr 06/10/20 14:09 06/10/20 14:19 06/10/20 14:20 Temperature 36.8 C Temperature Source Oral Pulse Rate 65 63 Pulse Rate from SpO2 Sensor Respiratory Rate 16 19 Blood Pressure 135/62 156/78 H Blood Pressure Mean 86 96 Pulse Oximetry 96 95 Oxygen Delivery Method Room Air Room Air Sepsis Recent Fever Within 48 Hours No Sepsis New/Unexplained Change in Mental Status N/A Sepsis Action Taken by Nursing No Action Required 06/10/20 14:21 06/10/20 14:42 06/10/20 15:00 Temperature Temperature Source Pulse Rate 64 64 61 Pulse Rate from SpO2 Sensor 61 Respiratory Rate 14 17 19 Blood Pressure 155/95 H 169/85 H Blood Pressure Mean 127 122 Pulse Oximetry 98 Oxygen Delivery Method Room Air Sepsis Recent Fever Within 48 Hours Sepsis New/Unexplained Change in Mental Status Sepsis Action Taken by Nursing 06/10/20 15:36 Temperature Temperature Source Pulse Rate 66 Pulse Rate from SpO2 Sensor 63 Respiratory Rate 13 Blood Pressure 162/108 H Blood Pressure Mean 127 Pulse Oximetry 98 Oxygen Delivery Method Room Air Sepsis Recent Fever Within 48 Hours Sepsis New/Unexplained Change in Mental Status Sepsis Action Taken by Nursing Laboratory Data Result diagrams: 06/10/20 14:44 06/10/20 14:44 Lab Results 06/10/20 06/10/20 06/10/20 Range/Units 14:44 14:44 14:44 WBC 4.90 (4.8-10.8) K/uL RBC 3.64 L (4.2-5.4) M/uL Hgb 10.9 L (12.0-16.0) g/dL Hct 34.1 L (37-47) % MCV 93.7 (80-100) fL MCH 29.9 (25-34) pg MCHC 32.0 (32-36) g/dL RDW Std Deviation 48.1 H (36.4-46.3) fL RDW Coeff of Bassem 13.9 (11.5-14.5) % Plt Count 191 (130-400) K/uL MPV 9.4 (7.4-10.4) fL Immature Gran % (Auto) 0.0 % Neut % (Auto) 74.5 % Lymph % (Auto) 13.9 % [place] % (Auto) 10.0 % Eos % (Auto) 1.4 % Baso % (Auto) 0.2 % Neut # (Auto) 3.65 (1.4-6.5) K/uL Lymph # (Auto) 0.68 L (1.2-3.4) K/uL [place] # (Auto) 0.49 (0.11-0.59) K/uL Eos # (Auto) 0.07 (0-0.5) K/uL Baso # (Auto) 0.01 (0-0.2) K/uL Immature Gran # (Auto) 0.00 (0.00-0.02) K/uL PT 11.9 (9.0-12.0) Seconds INR 1.1 (0.9-1.1) APTT 30.7 (21.0-31.0) Seconds PTT Ratio 1.1 Sodium (136-145) mmol/L Potassium (3.5-5.1) mmol/L Chloride (98-107) mmol/L Carbon Dioxide (21-32) mmol/L Anion Gap (3-11) BUN (7-18) mg/dl Creatinine (0.6-1.2) mg/dl Est Cr Clr Drug Dosing Est GFR ( Amer) Est GFR (Non-Af Amer) BUN/Creatinine Ratio (10-20) Glucose (70-99) mg/dl Calcium (8.5-10.1) mg/dl Magnesium (1.8-2.4) mg/dl Total Bilirubin (0.2-1) mg/dl AST (15-37) U/L ALT (12-78) U/L Alkaline Phosphatase (45-117) U/L Troponin I (0-0.045) ng/ml Total Protein (6.4-8.2) gm/dl Albumin (3.4-5.0) gm/dl Globulin (2.5-4.0) gm/dl Albumin/Globulin Ratio (0.9-2) Urine Color Urine Appearance (Clear) Urine pH (4.5-7.5) Ur Specific [place] (1.000-1.030) Urine Protein (Negative) Urine Glucose (UA) (Negative) Urine Ketones (Negative) Urine Blood (Negative) Urine Nitrite (Negative) Urine Bilirubin (Negative) Urine Urobilinogen (Negative) Ur Leukocyte Esterase (Negative) Urine WBC (Auto) (0-5) /hpf Urine RBC (Auto) (0-4) /hpf U Hyaline Cast (Auto) (0-5) /lpf U Epithel Cells (Auto) (0-5) /lpf Urine Bacteria (Auto) (Negative) Blood Type O Positive Antibody Screen NEGATIVE 06/10/20 06/10/20 Range/Units 14:44 14:55 WBC (4.8-10.8) K/uL RBC (4.2-5.4) M/uL Hgb (12.0-16.0) g/dL Hct (37-47) % MCV (80-100) fL MCH (25-34) pg MCHC (32-36) g/dL RDW Std Deviation (36.4-46.3) fL RDW Coeff of Bassem (11.5-14.5) % Plt Count (130-400) K/uL MPV (7.4-10.4) fL Immature Gran % (Auto) % Neut % (Auto) % Lymph % (Auto) % [place] % (Auto) % Eos % (Auto) % Baso % (Auto) % Neut # (Auto) (1.4-6.5) K/uL Lymph # (Auto) (1.2-3.4) K/uL [place] # (Auto) (0.11-0.59) K/uL Eos # (Auto) (0-0.5) K/uL Baso # (Auto) (0-0.2) K/uL Immature Gran # (Auto) (0.00-0.02) K/uL PT (9.0-12.0) Seconds INR (0.9-1.1) APTT (21.0-31.0) Seconds PTT Ratio Sodium 136 (136-145) mmol/L Potassium 4.2 (3.5-5.1) mmol/L Chloride 103 (98-107) mmol/L Carbon Dioxide 27 (21-32) mmol/L Anion Gap 6.0 (3-11) BUN 23 H (7-18) mg/dl Creatinine 0.61 (0.6-1.2) mg/dl Est Cr Clr Drug Dosing Not Reportable Est GFR ( Amer) 95.1 Est GFR (Non-Af Amer) 82.1 BUN/Creatinine Ratio 37.2 H (10-20) Glucose 96 (70-99) mg/dl Calcium 7.9 L (8.5-10.1) mg/dl Magnesium 1.9 (1.8-2.4) mg/dl Total Bilirubin 0.3 (0.2-1) mg/dl AST 14 L (15-37) U/L ALT 20 (12-78) U/L Alkaline Phosphatase 122 H (45-117) U/L Troponin I < 0.015 (0-0.045) ng/ml Total Protein 5.7 L (6.4-8.2) gm/dl Albumin 2.6 L (3.4-5.0) gm/dl Globulin 3.1 (2.5-4.0) gm/dl Albumin/Globulin Ratio 0.8 L (0.9-2) Urine Color Yellow Urine Appearance Clear (Clear) Urine pH 6.5 (4.5-7.5) Ur Specific [place] 1.025 (1.000-1.030) Urine Protein Negative (Negative) Urine Glucose (UA) Negative (Negative) Urine Ketones Negative (Negative) Urine Blood Trace H (Negative) Urine Nitrite Positive A (Negative) Urine Bilirubin Negative (Negative) Urine Urobilinogen Negative (Negative) Ur Leukocyte Esterase 1+ H (Negative) Urine WBC (Auto) 10-30 H (0-5) /hpf Urine RBC (Auto) 0-4 (0-4) /hpf U Hyaline Cast (Auto) 0 (0-5) /lpf U Epithel Cells (Auto) 20-30 H (0-5) /lpf Urine Bacteria (Auto) 3+ H (Negative) Blood Type Antibody Screen Administered Medications Sodium Chloride (Nss 1000ml) 1,000 mls @ 50 mls/hr IV .Q20H ASHANTI Stop: 07/10/20 14:29 Last Admin: 06/10/20 15:58 Dose: Not Given Document[place] by: [id number] Discontinued Medications Ceftriaxone Sodium (Rocephin) 1,000 mg in 50 mls @ 100 mls/hr IV NOW STA Stop: 06/10/20 15:53 Last Infusion: 06/10/20 15:59 Dose: 0 mls/hr Documented by: [id number] Admin: 06/10/20 15:27 Dose: 100 mls/hr Documented by: [id number] Ioversol (Optiray 320 125ml) 120 ml IV ONCE ONE Stop: 06/10/20 14:30 Last Admin: 06/10/20 14:29 Dose: 120 ml Documented by: [id number] Discharge Plan Visit Data Chief Complaint: Confusion Stated Complaint: CONFUSED ED Provider: Maximo Cha Discharge Problem: Acute confusion, Acute UTI (urinary tract infection), Expressive aphasia Discharge Instructions Interventions: ED Discharge Assessment Last Done: 06/10/20 16:05 Forms Stand Alone Forms: [facility] Layer Prescriptions Prescriptions: No Action folic acid 1 mg Tablet 1 mg PO QAM Qty: 0 RF: 0 cholecalciferol (vitamin D3) 1,000 unit Capsule 2,000 unit PO QAM Qty: 0 RF: 0 aspirin 81 mg Tablet,Delayed Release (Dr/Ec) 81 mg PO QAM Qty: 0 RF: 0 atorvastatin [Lipitor] 20 mg Tablet 20 mg PO QAM Qty: 0 RF: 0 omeprazole 20 mg Capsule,Delayed Release(Dr/Ec) 20 mg PO QAM Qty: 0 RF: 0 Eliquis 2.5 mg Tablet 2.5 mg PO BID Qty: 0 RF: 0 cyanocobalamin (vitamin B-12) 1,000 mcg Capsule 2,000 mcg PO QAM Qty: 0 RF: 0 metoprolol tartrate 25 mg tablet 12.5 mg PO BID RF: 0 Lumigan 0.01 % Drops 1 drp OPB HS RF: 0 gabapentin 100 mg capsule 200 mg PO HS Qty: 60 RF: 5 levothyroxine [Synthroid] 75 mcg tablet 75 mcg PO QAM RF: 0 timolol maleate 0.5 % drops 1 drp OPL QAM RF: 0 Referrals Referrals: Neo Plascencia MD [Primary Care Provider] -
--- NOTE | 2020-06-10 14:46 | XRay Report ---
XR chest 1V portable CLINICAL HISTORY: stroke COMPARISON STUDY: Chest CT September 07, 2018. Chest radiograph November 01, 2019. FINDINGS: There is no pneumothorax or pleural effusion. Biapical opacities are unchanged. These are c hronic. There is no evidence for pulmonary edema or pneumonia. Cardiac size is normal. Mediastinal co ntours are normal. Evidence for upper lobe volume loss is unchanged. IMPRESSION: No significant change in appearance of the chest. Biapical opacities which are chronic. ACT 112: Negative or not required by law. Electronically signed by: Dallin Cardona M.D. 06/10/2020 2:44 PM
--- NOTE | 2020-06-10 14:51 | CT Scan Report ---
CT ANGIOGRAPHY OF THE NECK WITH CONTRAST CLINICAL HISTORY: Stroke evaluation COMPARISON STUDY: CTA of the neck October 08, 2017. MRA of the neck April 06, 2019. Technique: CT angiography of the carotid and vertebral arteries was obtained using [employer] 320 IV and 3D reconstruction on an independent workstation. NASCET criteria was utilized. Automated exposure c ontrol was utilized for the study. A dose lowering technique was utilized adhering to the principles of ALARA. CT DOSE: 440.65 mGy.cm Findings: Biapical airspace opacities, bronchiectasis and upper lobe volume loss are unchanged. The f indings are chronic. A 1.9 cm right lobe thyroid nodule is unchanged since CTA of October 08, 2017. There is no cervical lymphadenopathy. There is no cervical spine fracture. No suspicious lesion is id entified within visualized skeletal structures. The bilateral common carotid, cervical internal carot id and vertebral arteries are patent. There is no dissection within these vessels. No stenosis or int raluminal thrombus is identified. The CTA of the head will be reported separately. IMPRESSION: Unremarkable CTA of the neck. No stenosis. No dissection. ACT 112: Negative or not required by law. Electronically signed by: Dallin Cardona M.D. 06/10/2020 2:50 PM
[2020-06-10 14:57] LABS: Basophils # (auto) 0.01 K/uL (0-0.2); Basophils % (auto) 0.2 %; Eosinophils # (auto) 0.07 K/uL (0-0.5); Eosinophils % (auto) 1.4 %; Hematocrit (blood only) 34.1 % (37-47); Hemoglobin 10.9 g/dL (12.0-16.0); Lymphocytes # (auto) 0.68 K/uL (1.2-3.4); Lymphocytes % (auto) 13.9 %; Mean Corpuscular Hemoglobin 29.9 pg (25-34); Mean Corpuscular Volume 93.7 fL (80-100); Mean Platelet Volume 9.4 fL (7.4-10.4); Monocytes # (auto) 0.49 K/uL (0.11-0.59); Neutrophils # (auto) 3.65 K/uL (1.4-6.5); Neutrophils % (auto) 74.5 %; Platelet Count 191 K/uL (130-400); RDW Coefficient of Variation 13.9 % (11.5-14.5); RDW Standard Deviation 48.1 fL (36.4-46.3); Red Blood Count 3.64 M/uL (4.2-5.4)
[2020-06-10 15:08] LABS: INR 1.1 (0.9-1.1); Partial Thromboplastin Ratio 1.1; Partial Thromboplastin Time 30.7 Seconds (21.0-31.0); Prothrombin Time 11.9 Seconds (9.0-12.0)
[2020-06-10 15:12] LABS: Appearance Urine Clear (Clear); Bacteria Urine Automated 3+ (Negative); Bilirubin Urine Negative (Negative); Blood Urine Trace (Negative); Cast Urine Automated 0 /lpf (0-5); Color Urine Yellow; Epithelial Cell Urine Auto 20-30 /lpf (0-5); Glucose Urine UA Negative (Negative); Ketones Urine Negative (Negative); Leukocyte Esterase Urine 1+ (Negative); Nitrite Urine Positive (Negative); Protein Urine Negative (Negative); RBC Urine Automated 0-4 /hpf (0-4); Specific Gravity Urine 1.025 (1.000-1.030); Urobilinogen Urine Negative (Negative); pH Urine 6.5 (4.5-7.5)
[2020-06-10 15:15] LABS: Alanine Aminotransferase 20 U/L (12-78); Albumin Level 2.6 gm/dl (3.4-5.0); Aspartate Aminotransferase 14 U/L (15-37); BUN Creatinine Ratio 37.2 (10-20); Blood Urea Nitrogen 23 mg/dl (7-18); Calcium 7.9 mg/dl (8.5-10.1); Carbon Dioxide 27 mmol/L (21-32); Chloride 103 mmol/L (98-107); Est GFR (African American) 95.1; Est GFR (Non-African American) 82.1; Glucose 96 mg/dl (70-99); Magnesium 1.9 mg/dl (1.8-2.4); Potassium 4.2 mmol/L (3.5-5.1); Sodium 136 mmol/L (136-145)
[2020-06-10 15:20] LABS: Albumin Globulin Ratio 0.8 (0.9-2); Alkaline Phosphatase 122 U/L (45-117); Bilirubin,Total 0.3 mg/dl (0.2-1); Globulin 3.1 gm/dl (2.5-4.0); Total Protein 5.7 gm/dl (6.4-8.2); Troponin I < 0.015 ng/ml (0-0.045)
[2020-06-10] MEDS ORDERED: cefTRIAXone SODIUM 1,000 MG/50 ML BAG IV STA (15:24)
[2020-06-10] MEDS ORDERED: POLYETHYLENE (MIRALAX) 17 GM PACK PO PRN (15:31)
[2020-06-10] MEDS ORDERED: ACETAMINOPHEN 325 MG TAB PO PRN (15:31)
[2020-06-10] MEDS ORDERED: ONDANSETRON INJ 2 MG/ML 2 ML VIAL IV PRN (15:31)
[2020-06-10] MEDS ORDERED: MAGNESIUM HYDROXIDE SUSP 30 ML UDC PO PRN (15:31)
[2020-06-10] MEDS ORDERED: ALUMINUM/MAGNESIUM SUSP 30 ML UDC PO PRN (15:31)
[2020-06-10] MEDS ORDERED: ZOLPIDEM TARTRATE 5 MG TAB PO PRN (15:31)
--- NOTE | 2020-06-10 16:49 | Communication Note ---
Date of Service: June 10, 2020 Patient seen and examined with care coordinated with Edith Lozada PA-C labs and images reviewed, 84-year-old female was brought to the ER by her daughter as patient was found to be confused, word finding difficulty, disorientation around 1:15 PM today Patient has prior history of TIA on Eliquis, had multiple urinary tract infection in the past Patient and her daughter were sitting up to having family meals, daughter noticed patient was repeating words, could not follow commands, And was brought to ER, code stroke alert was called, later canceled as patient already on Eliquis for prior history of TIA not a TPA candidate CT head, CT angiogram of head and neck shows no acute pathology In the ER patient was given IV fluids, IV Rocephin Patient mental status improved to baseline confusion, speech is fluent, oriented Letter mentioned in her prior episode of urine tract infection patient had a similar type of confusion UA grossly positive: Urine culture sent Patient will be admitted to telemetry: For observation overnight Last urine culture was pansensitive E. coli Patient was given IV Rocephin in the ER which will be continued Neurology consulted for confusion, patient follows up with Dr. Caro has appointment scheduled tomorrow for follow-up PT OT evaluation DVT prophylaxis patient is on Eliquis CODE STATUS full code Please refer to further documentation by Edith Lozada PA-C for discussion of other medical issues. Tricia Espinal MD
--- NOTE | 2020-06-10 16:54 | History & Physical Report ---
Date of Service June 10, 2020 Assessment & Plan (1) Acute confusion: (2) Acute UTI (urinary tract infection): (3) History of TIA (transient ischemic attack): (4) Expressive aphasia: Patient is an 84 yo female with history of TIA and also hx of recurrent UTI and urinary incontinence. Stroke alert was called in the ED. Workup so far for stroke has been negative with CT head, CTA head & neck negative. Patient is on Eliquis chronically. TPA not indicated regardless. Will consult Neurology due to hx of multiple TIA's. Urinalysis concerning for infection and patient has history of multiple UTI's in the past. She was given Rocephin and fluid in the ED, and her confusion has subsided. Feel that symptoms are most likely secondary to dehydration and UTI. Continue to monitor symptoms. Neuro checks, stroke scale, aspiration and fall precautions Repeat CBC, BMP in AM Follow urine culture- Hx of pansensitive E. Coli Continue Rocephin pending culture. (5) HTN (hypertension): BP elevated upon arrival. Continue to monitor closely Gentle hydration. Continue home meds (6) DVT prophylaxis: Continue Eliquis. Admission and Anticipated Discharge Date Admission Date: June 10, 2020 History of Present Illness Chief Complaint: Confusion Primary Care Provider: Neo Plascencia MD Patient is an 84 yo female who presented to the ED with confusion since around 1:15PM this afternoon. The patient was with her daughter at the time, and she was noted to have sudden word-finding difficulty and started talking nonsense. She also was confused and didn't know the date, her daughter's name, or the name of their family dog. She does have history of TIA's in the past and also has history of UTI's. Stroke alert was called in the ED. CT of the Head along with CTA of the head and neck were completed and were negative for acute CVA. The patient also had lab evaluation which showed slight anemia and positive urinalysis concerning for infection. The patient also notes that she hasn't been drinking enough water. She was outside when this episode happened and notes it was hot, but she wasn't in the sun. She does note 1 episode of diarrhea yesterday. She was recently placed on Metamucil but is only using this here and there. She is on chronic Eliquis, so [facility] Tele-Stroke was not consulted. TPA contraindicated. She does follow with Dr. Caro at [facility], and she is supposed to be following up with him tomorrow. Urine culture pending. She was given fluids in the ED and started on IV Rocephin. Allergies Allergy/AdvReac Type Severity Reaction Status Date / Time tetanus toxoid, adsorbed Allergy Mild SWELLING Verified 06/10/20 16:03 AND REDNESS sulfamethoxazole AdvReac Dizziness Verified 06/10/20 16:03 [From Bactrim] trimethoprim [From Bactrim] AdvReac Dizziness Verified 06/10/20 16:03 Home Medications Home Medications Medication Instructions Recorded Confirmed Type cholecalciferol (vitamin D3) 2,000 unit PO QAM #0 03/21/17 06/10/20 History folic acid 1 mg PO QAM #0 03/21/17 06/10/20 History aspirin 81 mg PO QAM #0 10/08/17 06/10/20 History atorvastatin [Lipitor] 20 mg PO QAM #0 tab 02/11/18 06/10/20 History omeprazole 20 mg PO QAM #0 02/11/18 06/10/20 History Eliquis 2.5 mg PO BID #0 tab 03/29/18 06/10/20 History cyanocobalamin (vitamin B-12) 2,000 mcg PO QAM #0 03/29/18 06/10/20 History Lumigan 1 drp OPB HS 10/11/18 06/10/20 History metoprolol tartrate 12.5 mg PO BID 10/11/18 06/10/20 History gabapentin 200 mg PO HS #60 cap 10/15/18 06/10/20 Rx levothyroxine [Synthroid] 75 mcg PO QAM 03/26/19 06/10/20 History timolol maleate 1 drp OPL QAM 03/26/19 06/10/20 History Past Med/Surg History Medical History (Updated 06/10/20 @ 17:16 by Rose Mary Lozada PA-C) Acute confusion Atrial fibrillation Atrial fibrillation with RVR Central retinal vein occlusion of right eye Dyslipidemia History of breast cancer "intraductal carcinoma left breast, s/p lumpectomy" History of osteoporosis History of pulmonary embolism HTN (hypertension) Hx of MTHFR mutation LUE weakness Numbness of left hand Papillary carcinoma of thyroid SBO (small bowel obstruction) Small bowel obstruction UGIB (upper gastrointestinal bleed) Uterine prolapse UTI (urinary tract infection) Surgical History H/O oophorectomy History of bladder surgery History of cataract surgery History of hysterectomy S/P exploratory laparotomy lysis of adhesions Status post partial mastectomy "left breast, DCIS" Family History Father Stroke Social History Smoking Status: Never smoker Second Hand Exposure: No; Hx Alcohol Use: No Hx Substance Use: No Preferred Language: Grenadian Communication Ability: Effective Visual Impairment: Limited Hearing Ability: Normal Chief Meteorologist Required: No Beliefs That Will Affect Care: None marital status: / Current Living Situation: Alone Current Living Situation Comment: One daughter lives next door to patient Other Information That Helps Us Care for You: No Feels Safe at Home: Yes Safety Concerns: Feels Safe At This Time Review of Systems Review of Systems: All systems reviewed & are unremarkable except as noted in HPI & below Physical Exam Constitutional: WD/WN, vitals as above no acute distress Eyes: PERRL, conjunctivae normal, anicteric sclerae ENMT: external ear and nose normal, oropharynx normal Neck: trachea midline, no thyromegaly Respiratory: normal respiratory effort, lungs clear to auscultation Cardiovascular: RRR, no murmur, no edema Extremities: no edema Gastrointestinal (Abdomen): normal bowel sounds, soft, nontender, no hepatosplenomegaly Musculoskeletal: no cyanosis or clubbing, extremities motor strength 5/5 Skin: no rashes, warm and dry Neurologic: moves all extremities; no focal motor deficits Speech / Cognition: normal speech Results & Data Results & Data ([facility]) Vital Signs (Past 12 Hours) Vital Signs Temp Pulse Resp BP Pulse Ox 06/10/20 15:36 66 13 162/108 H 98 06/10/20 15:00 61 19 169/85 H 98 06/10/20 14:42 64 17 155/95 H 06/10/20 14:21 64 14 06/10/20 14:20 95 06/10/20 14:19 63 19 156/78 H 06/10/20 14:09 36.8 C 65 16 135/62 96 Laboratory Results Laboratory Results - last 24 hr 06/10/20 06/10/20 06/10/20 14:44 14:44 14:44 WBC 4.90 RBC 3.64 L Hgb 10.9 L Hct 34.1 L MCV 93.7 MCH 29.9 MCHC 32.0 RDW Std Deviation 48.1 H RDW Coeff of Bassem 13.9 Plt Count 191 MPV 9.4 Immature Gran % (Auto) 0.0 Neut % (Auto) 74.5 Lymph % (Auto) 13.9 Ciales % (Auto) 10.0 Eos % (Auto) 1.4 Baso % (Auto) 0.2 Neut # (Auto) 3.65 Lymph # (Auto) 0.68 L C[place]es # (Auto) 0.49 Eos # (Auto) 0.07 Baso # (Auto) 0.01 Immature Gran # (Auto) 0.00 PT 11.9 INR 1.1 APTT 30.7 PTT Ratio 1.1 Sodium Potassium Chloride Carbon Dioxide Anion Gap BUN Creatinine Est Cr Clr Drug Dosing Est GFR ( Amer) Est GFR (Non-Af Amer) BUN/Creatinine Ratio Glucose Calcium Magnesium Total Bilirubin AST ALT Alkaline Phosphatase Troponin I Total Protein Albumin Globulin Albumin/Globulin Ratio Urine Color Urine Appearance Urine pH Ur Specific [place] Urine Protein Urine Glucose (UA) Urine Ketones Urine Blood Urine Nitrite Urine Bilirubin Urine Urobilinogen Ur Leukocyte Esterase Urine WBC (Auto) Urine RBC (Auto) U Hyaline Cast (Auto) U Epithel Cells (Auto) Urine Bacteria (Auto) Blood Type O Positive Antibody Screen NEGATIVE 06/10/20 06/10/20 06/10/20 14:44 14:55 17:04 WBC 6.68 RBC 4.18 L Hgb 12.7 Hct 40.1 MCV 95.9 MCH 30.4 MCHC 31.7 L RDW Std Deviation 49.5 H RDW Coeff of Bassem 14.1 Plt Count 229 MPV 9.7 Immature Gran % (Auto) Neut % (Auto) Lymph % (Auto) [place] % (Auto) Eos % (Auto) Baso % (Auto) Neut # (Auto) Lymph # (Auto) C[place] # (Auto) Eos # (Auto) Baso # (Auto) Immature Gran # (Auto) PT INR APTT PTT Ratio Sodium 136 Potassium 4.2 Chloride 103 Carbon Dioxide 27 Anion Gap 6.0 BUN 23 H Creatinine 0.61 Est Cr Clr Drug Dosing Not Reportable Est GFR ( Amer) 95.1 Est GFR (Non-Af Amer) 82.1 BUN/Creatinine Ratio 37.2 H Glucose 96 Calcium 7.9 L Magnesium 1.9 Total Bilirubin 0.3 AST 14 L ALT 20 Alkaline Phosphatase 122 H Troponin I < 0.015 Total Protein 5.7 L Albumin 2.6 L Globulin 3.1 Albumin/Globulin Ratio 0.8 L Urine Color Yellow Urine Appearance Clear Urine pH 6.5 Ur Specific [place] 1.025 Urine Protein Negative Urine Glucose (UA) Negative Urine Ketones Negative Urine Blood Trace H Urine Nitrite Positive A Urine Bilirubin Negative Urine Urobilinogen Negative Ur Leukocyte Esterase 1+ H Urine WBC (Auto) 10-30 H Urine RBC (Auto) 0-4 U Hyaline Cast (Auto) 0 U Epithel Cells (Auto) 20-30 H Urine Bacteria (Auto) 3+ H Blood Type Antibody Screen 06/10/20 17:04 WBC RBC Hgb Hct MCV MCH MCHC RDW Std Deviation RDW Coeff of Bassem Plt Count MPV Immature Gran % (Auto) Neut % (Auto) Lymph % (Auto) [place] % (Auto) Eos % (Auto) Baso % (Auto) Neut # (Auto) Lymph # (Auto) C[place] # (Auto) Eos # (Auto) Baso # (Auto) Immature Gran # (Auto) PT INR APTT PTT Ratio Sodium 138 Potassium 4.2 Chloride 104 Carbon Dioxide 29 Anion Gap 6.0 BUN 21 H Creatinine 0.60 Est Cr Clr Drug Dosing 44.4 Est GFR ( Amer) 95.7 Est GFR (Non-Af Amer) 82.5 BUN/Creatinine Ratio 35.6 H Glucose 99 Calcium 8.5 Magnesium Total Bilirubin AST ALT Alkaline Phosphatase Troponin I Total Protein Albumin Globulin Albumin/Globulin Ratio Urine Color Urine Appearance Urine pH Ur Specific [place] Urine Protein Urine Glucose (UA) Urine Ketones Urine Blood Urine Nitrite Urine Bilirubin Urine Urobilinogen Ur Leukocyte Esterase Urine WBC (Auto) Urine RBC (Auto) U Hyaline Cast (Auto) U Epithel Cells (Auto) Urine Bacteria (Auto) Blood Type Antibody Screen Diagnostic Findings CT Head: IMPRESSION: No acute intracranial findings. No change in appearance of the brain. CTA Head: IMPRESSION: 1. No central vessel occlusion. 2. 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 CTA Neck: IMPRESSION: Unremarkable CTA of the neck. No stenosis. No dissection. CXR: IMPRESSION: No significant change in appearance of the chest. Biapical opacities which are chronic. Code Status & VTE Plan VTE Prophylaxis Plan VTE Prophylaxis will be ordered: Yes Supervising Physician Co-Signing Physician Notes Date of Service: June 10, 2020 Patient seen and examined with care coordinated with Edith Lozada PA-C labs and images reviewed, 84-year-old female was brought to the ER by her daughter as patient was found to be confused, word finding difficulty, disorientation around 1:15 PM today Patient has prior history of TIA on Eliquis, had multiple urinary tract infection in the past Patient and her daughter were sitting up to having family meals, daughter noticed patient was repeating words, could not follow commands, And was brought to ER, code stroke alert was called, later canceled as patient already on Eliquis for prior history of TIA not a TPA candidate CT head, CT angiogram of head and neck shows no acute pathology In the ER patient was given IV fluids, IV Rocephin Patient mental status improved to baseline confusion, speech is fluent, oriented Letter mentioned in her prior episode of urine tract infection patient had a similar type of confusion UA grossly positive: Urine culture sent Patient will be admitted to telemetry: For observation overnight Last urine culture was pansensitive E. coli Patient was given IV Rocephin in the ER which will be continued Neurology consulted for confusion, patient follows up with Dr. Caro has appointment scheduled tomorrow for follow-up PT OT evaluation DVT prophylaxis patient is on Eliquis CODE STATUS full code Please refer to further documentation by Edith Lozada PA-C for discussion of other medical issues. Tricia Espinal MD
[2020-06-10 17:39] LABS: Hematocrit (blood only) 40.1 % (37-47); Hemoglobin 12.7 g/dL (12.0-16.0); Mean Corpuscular Hemoglobin 30.4 pg (25-34); Mean Corpuscular Hgb Conc 31.7 g/dL (32-36); Mean Corpuscular Volume 95.9 fL (80-100); Mean Platelet Volume 9.7 fL (7.4-10.4); Platelet Count 229 K/uL (130-400); RDW Coefficient of Variation 14.1 % (11.5-14.5); RDW Standard Deviation 49.5 fL (36.4-46.3); Red Blood Count 4.18 M/uL (4.2-5.4); White Blood Count 6.68 K/uL (4.8-10.8)
[2020-06-10 17:54] LABS: BUN Creatinine Ratio 35.6 (10-20); Calcium 8.5 mg/dl (8.5-10.1); Creatinine Clr Calc Pharmacy 44.4 ml/min; Est GFR (African American) 95.7; Est GFR (Non-African American) 82.5; Potassium 4.2 mmol/L (3.5-5.1)
[2020-06-10] MEDS ORDERED: HydrALAZINE HCL 20 MG/ML VIAL IV STA (18:15)
[2020-06-10] MEDS ORDERED: HydrALAZINE HCL 20 MG/ML VIAL IV PRN (18:15)
[2020-06-10] MEDS ORDERED: MoRPHine SULFATE 2 MG/ML CARP IV STA (19:02)
[2020-06-10] MEDS ORDERED: KETOROLAC TROMETHAMINE 15 MG/ML VIAL IV PRN (19:15)
[2020-06-10] MEDS: APIXABAN 2.5 MG TAB PO SCH (20:15)
[2020-06-10] MEDS ORDERED: METOPROLOL TARTRATE 25 MG TAB PO SCH (21:00)
[2020-06-10] MEDS ORDERED: GABAPENTIN 100 MG CAP PO SCH (21:00)
[2020-06-11] MEDS ORDERED: LEVOTHYROXINE SODIUM 75 MCG TABLET PO SCH (06:30)
[2020-06-11] MEDS: APIXABAN 2.5 MG TAB PO SCH (08:09)
[2020-06-11 08:14] LABS: Hematocrit (blood only) 37.7 % (37-47); Hemoglobin 12.3 g/dL (12.0-16.0); Mean Corpuscular Hemoglobin 30.8 pg (25-34); Mean Corpuscular Hgb Conc 32.6 g/dL (32-36); Mean Corpuscular Volume 94.3 fL (80-100); Mean Platelet Volume 9.9 fL (7.4-10.4); Platelet Count 213 K/uL (130-400); RDW Coefficient of Variation 14.2 % (11.5-14.5); RDW Standard Deviation 49.1 fL (36.4-46.3); White Blood Count 6.69 K/uL (4.8-10.8)
[2020-06-11 08:45] LABS: BUN Creatinine Ratio 33.2 (10-20); Calcium 9.2 mg/dl (8.5-10.1); Creatinine Clr Calc Pharmacy 51.5 ml/min; Est GFR (African American) 97.9; Est GFR (Non-African American) 84.4; Potassium 3.8 mmol/L (3.5-5.1)
[2020-06-11] MEDS ORDERED: PANTOprazole 40 MG TAB PO SCH (09:00)
[2020-06-11] MEDS ORDERED: ATORVASTATIN 20 MG TAB PO SCH (09:00)
[2020-06-11] MEDS ORDERED: CHOLECALCIFEROL 1,000 UNITS 25 MCG TAB PO SCH (09:00)
[2020-06-11] MEDS ORDERED: TIMOLOL MALEATE 0.25% OP SOLN 5 ML BTL OPL SCH (09:00)
[2020-06-11] MEDS ORDERED: CYANOCOBALAMIN 500 MCG TABLET (VITAMIN B-12) PO SCH (09:00)
[2020-06-11] MEDS ORDERED: FOLIC ACID 1 MG TAB PO SCH (09:00)
[2020-06-11] MEDS ORDERED: ASPIRIN 81 MG ECTAB PO SCH ×2 (09:00)
--- NOTE | 2020-06-11 10:07 | Electrocardiogram Report ---
Test Reason : Blood Pressure : / mmHG Vent. Rate : 060 BPM Atrial Rate : 060 BPM P-R Int : 148 ms QRS Dur : 074 ms QT Int : 432 ms P-R-T Axes : 092 060 062 degrees QTc Int : 432 ms Poor data quality, interpretation may be adversely affected Normal sinus rhythm Diffuse Minor Nonspecific ST abnormality Abnormal ECG When compared with ECG of 01-NOV-2019 01:02, Premature ventricular complexes are no longer Present Confirmed by Daryl Fernandez ([id number]) on 06/11/2020 10:07:11 AM Referred By: REFERRED SELF Confirmed By:Daryl Fernandez
[2020-06-11] MEDS ORDERED: cefTRIAXone SODIUM 1,000 MG in DEXTROSE 5% 50 ML IV SCH (14:00)
--- NOTE | 2020-06-11 15:32 | Consultation Report ---
DATE OF CONSULTATION: 06/11/2020 NEUROLOGY CONSULTATION NOTE CHIEF COMPLAINT: Confusion. HISTORY OF PRESENT ILLNESS: An 84-year-old woman with a history of transient ischemic attack, paroxysmal atrial fibrillation, on Eliquis, and prior history of urinary tract infections, presenting to the Emergency Department yesterday afternoon for confusion. The patient was with her daughter on Thursday when she was noted to have sudden word finding difficulty and started talking nonsensical. She was confused and did not know the date, her daughter's name, or the family dog's name. A stroke alert was called in the Emergency Room upon arrival. CT of the head was negative for acute ischemic stroke. Labs also showed that she was anemic and had a positive urinalysis. It was noted that she is indeed on Eliquis for prior history of TIA as well as paroxysmal atrial fibrillation. TPA was not administered. The patient does follow with [facility] and follows with Dr. Caro. The patient was admitted to the hospitalist service for evaluation and treatment of the urinary tract infection. Neurology was consulted for any additional recommendations. ALLERGIES: TETANUS, BACTRIM, AND TRIMETHOPRIM. HOME MEDICATIONS: Include vitamin D3, folic acid, aspirin, Lipitor, omeprazole, Eliquis, B12, metoprolol, gabapentin 200 mg nightly, Synthroid, and timolol. PAST MEDICAL HISTORY: Includes paroxysmal atrial fibrillation, TIA, central retinal vein occlusion of the right eye, dyslipidemia, history of breast cancer, history of osteoporosis, pulmonary embolism, hypertension, papillary carcinoma of the thyroid, small-bowel obstruction, uterine prolapse, urinary tract infections. PAST SURGICAL HISTORY: Includes oophorectomy, bladder surgery, cataract surgery, hysterectomy, exploratory laparotomy, status post partial mastectomy. FAMILY HISTORY: Pertinent for father had a stroke. SOCIAL HISTORY: She is a nonsmoker and denies alcohol use. She is . She lives alone. REVIEW OF SYSTEMS: All systems were reviewed and are unremarkable except as noted above in the HPI. PHYSICAL EXAMINATION: VITAL SIGNS: Blood pressure 129/81 mmHg, pulse is 57, respiratory rate is 17, temperature is 36.4 degrees Celsius, 95% on room air. EXAM: Constitutional: appears stated age, no distress Face: normocephalic and atraumatic Eyes: normal lids, normal conjunctiva Neck: supple Respiratory: normal effort Cardiovascular: normal pulses Abdomen: non distended Skin: no rashes, lesions, or ulcers noted Psychiatric: normal mood and normal affect NEUROLOGIC EXAMINATION: Appearance: no acute distress Orientation: awake, alert and oriented to age, month, current events, place, and season. Mental Status: alert Attention: normal Knowledge: appropriate Language: no aphasia Speech: no dysarthria Cranial Nerves: CN 2 - no visual defect on confrontation and pupils round, equal, reactive to light CN 3, 4, 6 - extra-ocular movements intact CN 5 - facial sensation intact CN 7 - no facial asymmetry CN 8 - intact hearing CN 9, 10 - palate symmetric CN 11 - good shoulder shrug CN 12 - tongue midline Gait: deferred Coordination: no ataxia with finger to nose testing Sensory: intact and symmetric to light touch Muscle Tone: normal Muscle exam: No focal weakness Reflexes: Negative freedman bilateral DIAGNOSTIC TESTING AND LABORATORY VALUES: WBC 6.69, hemoglobin is 12.3, platelet count is 213. INR is 1.1. Sodium is 138, potassium 3.8, chloride 106, carbon dioxide 26, BUN is 19, creatinine 0.56, glucose is 87, calcium is 9.2. AST and ALT are 14 and 20. Troponin is 0.015. TSH is 1.03. Total creatine kinase is 88. Urinalysis showed trace blood, positive urine nitrites, 1+ leukocyte esterase, 10-30 WBCs. Urine bacteria was 3+. Preliminary urine culture shows gram-negative bacilli. IMAGING: Chest x-ray showed no significant change in appearance of the chest. Biapical opacities are chronic. Head and neck CTA showed no intracranial vessel occlusion. 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 Unremarkable CTA of the neck. No significant stenosis or dissection. CT head noncontrast showed no acute intracranial findings. No change in appearance of the brain from previous studies. ASSESSMENT AND PLAN: An 84-year-old woman with a history of transient ischemic attack as well as paroxysmal atrial fibrillation, on Eliquis and aspirin, admitted for a urinary tract infection. Urinalysis was positive with a urine culture showing preliminary gram-negative bacilli. Agree with treatment of the urinary tract infection for presumed infectious/metabolic encephalopathy. Encephalopathy or speech has improved. Agree with continuing current home medications for secondary stroke prevention. Otherwise, Neurology will sign off for now. The patient can follow up as an outpatient. No additional testing is necessary from a neurology standpoint. Please contact me with any additional questions. DIOMEDESD
[2020-06-11 15:51] VITALS: PULSE 58; TEMP 97.3; O2SAT 96
--- NOTE | 2020-06-11 16:13 | Hospitalist Progress Note ---
Date of Service June 11, 2020 Assessment & Plan (1) Acute confusion: Metabolic encephalopathy secondary to urinary tract infection/dehydration CT of head neck shows no acute change Patient's mental status back to baseline Appreciate neurology input, no further neurological studies needed (2) Acute UTI (urinary tract infection): Urine culture: Gram-negative bacilli Had multiple urinary tract infection in the past, last urine culture was E. coli pansensitive Patient was treated with IV Rocephin antibiotic day 2 Will be changed to p.o. ciprofloxacin 500 mg twice daily for 5 more day -Recurrent urinary tract infection it is recommended that patient follows up with urology Patient's family physician should be able to do the referral and appointment scheduled (3) History of TIA (transient ischemic attack): (4) Expressive aphasia: Patient is an 84 yo female with history of TIA and also hx of recurrent UTI and urinary incontinence. Stroke alert was called in the ED. Workup so far for stroke has been negative with CT head, CTA head & neck negative. Patient is on Eliquis chronically. TPA not indicated regardless. Patient symptoms is possibly secondary to metabolic encephalopathy, acute urine tract infection Symptom resolved, no weakness paresthesia no confusion no dysarthria Appreciate input from neurology No further neurological testing needed (5) HTN (hypertension): Continue home meds (6) DVT prophylaxis: Continue Eliquis. Disposition: Patient lives at home independently, daughters lives nearby and checks on her frequently Patient is legally blind Appreciate input from PT OT, physical therapy recommends short-term inpatient rehab noticing balance issues and fall risk Patient is adamant of not going to any rehab specially during this pandemic In the past she used home physical therapy and had good experience Also due to her blindness she feels much more safe and comfortable at home Discussed with patient's daughter Patient will be discharged home with home health /home physical therapy Hospital follow-up arranged with patient's family physician Dr. Plascencia Admission and Anticipated Discharge Date Admission Date: June 10, 2020 Anticipated date of discharge: 06/12/20 Subjective Patient is awake and alert, sitting up on chair, no confusion no dysarthria Conversing appropriately mental status back to baseline next Patient insists on going home with home health, does not want to consider rehab Advised that physical therapist recommended high fall risk short-term rehab will be appropriate Patient had bowel surgery earlier this year, was return home with home health, had good experience Patient is legally blind she feels she is going to be much safe and recovered well in her family are environment Evaluated by neurology, no evidence of stroke or TIA, no imaging or studies needed Review of Systems Review of Systems: All systems reviewed & are unremarkable except as noted in HPI & below Physical Exam Constitutional: WD/WN, vitals as above no acute distress Eyes: PERRL, conjunctivae normal, anicteric sclerae ENMT: external ear and nose normal, oropharynx normal Neck: trachea midline, no thyromegaly Respiratory: normal respiratory effort, lungs clear to auscultation Cardiovascular: RRR, no murmur, no edema Extremities: no edema Gastrointestinal (Abdomen): normal bowel sounds, soft, nontender, no hepatosplenomegaly Musculoskeletal: no cyanosis or clubbing, extremities motor strength 5/5 Skin: no rashes, warm and dry Neurologic: moves all extremities; no focal motor deficits Speech / Cognition: normal speech Results & Data Results & Data ([facility]) Vital Signs (Past 12 Hours) Vital Signs Temp Pulse Pulse Resp BP Pulse Ox 06/11/20 15:48 36.3 C L 58 L 18 150/91 H 96 06/11/20 15:25 62 06/11/20 11:33 36.4 C L 57 L 17 129/81 94 06/11/20 10:36 64 06/11/20 07:15 36.6 C 63 20 127/69 97 06/11/20 04:31 36.4 C L 64 20 158/81 H 97
--- NOTE | 2020-06-11 16:15 | Discharge Summary ---
Date of Service June 11, 2020 Admission HPI Per Admitting Provider Patient is an 84 yo female who presented to the ED with confusion since around 1:15PM this afternoon. The patient was with her daughter at the time, and she was noted to have sudden word-finding difficulty and started talking nonsense. She also was confused and didn't know the date, her daughter's name, or the name of their family dog. She does have history of TIA's in the past and also has history of UTI's. Stroke alert was called in the ED. CT of the Head along with CTA of the head and neck were completed and were negative for acute CVA. The patient also had lab evaluation which showed slight anemia and positive urinalysis concerning for infection. The patient also notes that she hasn't been drinking enough water. She was outside when this episode happened and notes it was hot, but she wasn't in the sun. She does note 1 episode of diarrhea yesterday. She was recently placed on Metamucil but is only using this here and there. She is on chronic Eliquis, so Alloy Tele-Stroke was not consulted. TPA c ontraindicated. She does follow with Dr. Caro at [facility], and she is supposed to be following up with him tomorrow. Urine culture pending. She was given fluids in the ED and started on IV Rocephin. Principal Diagnosis Confusion/metabolic encephalopathy: Resolved No evidence of stroke Urinary tract infection Discharge Exam Constitutional WD/WN, vitals as above no acute distress Eyes PERRL, conjunctivae normal, anicteric sclerae ENMT external ear and nose normal, oropharynx normal Neck trachea midline, no thyromegaly Respiratory normal respiratory effort, lungs clear to auscultation Cardiovascular RRR, no murmur, no edema Extremities: no edema Gastrointestinal (Abdomen) normal bowel sounds, soft, nontender, no hepatosplenomegaly Musculoskeletal no cyanosis or clubbing, extremities motor strength 5/5 Skin no rashes, warm and dry Neurologic moves all extremities; no focal motor deficits Speech / Cognition: normal speech Discharge Data Allergies Allergy/AdvReac Type Severity Reaction Status Date / Time tetanus toxoid, adsorbed Allergy Mild SWELLING Verified 06/10/20 16:03 AND REDNESS sulfamethoxazole AdvReac Dizziness Verified 06/10/20 16:03 [From Bactrim] trimethoprim [From Bactrim] AdvReac Dizziness Verified 06/10/20 16:03 Consultations 06/10/20 15:25 ED Decision to Admit Stat 06/10/20 16:43 Consult Neurology Routine Ordered Studies 06/10/20 14:23 CT angio head w con Stat CT angio neck with con Stat CT head/brain wo con Stat Hospital Course (1) Acute confusion: Metabolic encephalopathy secondary to urinary tract infection/dehydration CT of head neck shows no acute change Patient's mental status back to baseline Appreciate neurology input, no further neurological studies needed (2) Acute UTI (urinary tract infection): Urine culture: Gram-negative bacilli Had multiple urinary tract infection in the past, last urine culture was E. coli pansensitive Patient was treated with IV Rocephin antibiotic day 2 Will be changed to p.o. ciprofloxacin 500 mg twice daily for 5 more day -Recurrent urinary tract infection it is recommended that patient follows up with urology Patient's family physician should be able to do the referral and appointment scheduled (3) History of TIA (transient ischemic attack): (4) Expressive aphasia: Patient is an 84 yo female with history of TIA and also hx of recurrent UTI and urinary incontinence. Stroke alert was called in the ED. Workup so far for stroke has been negative with CT head, CTA head & neck negative. Patient is on Eliquis chronically. TPA not indicated regardless. Patient symptoms is possibly secondary to metabolic encephalopathy, acute urine tract infection Symptom resolved, no weakness paresthesia no confusion no dysarthria Appreciate input from neurology No further neurological testing needed (5) HTN (hypertension): Continue home meds (6) DVT prophylaxis: Continue Eliquis. Disposition: Patient lives at home independently, daughters lives nearby and checks on her frequently Patient is legally blind Appreciate input from PT OT, physical therapy recommends short-term inpatient rehab noticing balance issues and fall risk Patient is adamant of not going to any rehab specially during this pandemic In the past she used home physical therapy and had good experience Also due to her blindness she feels much more safe and comfortable at home Discussed with patient's daughter Patient will be discharged home with home health /home physical therapy Hospital follow-up arranged with patient's family physician Dr. Plascencia Total Time Total Time Spent Total Time Spent (In Minutes): 35 minutes Total Time Includes: Examination of the Patient, Discharge Planning and Medication Reconciliation Discharge Plan Discharge Items Patient Disposition: Home - Home Health Services Reason For Visit: STROKE LIKE SYMPTOMS Discharge Diagnosis: Confusion/metabolic encephalopathy: Resolved No evidence of stroke Urinary tract infection Activity: As commented below Activity Comment: As tolerated, continue physical therapy at home Non-emergency contact: Primary Care Provider Call non-emergency contact if: you have any medication questions Follow-up/Referrals: Neo Plascencia MD [Primary Care Provider] - 06/18/20 11:00 am (Date & Time 06/18/2020 11:00 AM Provider Neo Plascencia MD Department General Internal Medicine [facility] ) Diet: Heart Healthy Addtl Attending Provider Instructions: Please have a referral to urology for further evaluation for recurrent urinary tract infection [facility] urology clinic: Address: [address] [place] [address] [facility] [place] [address] Phone number: [phone] Please drink plenty of fluids Complete antibiotic ciprofloxacin 500 mg 1 tablet twice daily for 5 more days for urine tract infection Pending Studies at Discharge: No Stand-Alone Forms: My oohilove, Smoking Cessation Medications and DC Order Prescriptions: New ciprofloxacin HCl [Cipro] 500 mg tablet 500 mg PO BID 5 Days Qty: 10 RF: 0 Continued folic acid 1 mg Tablet 1 mg PO QAM Qty: 0 RF: 0 cholecalciferol (vitamin D3) 1,000 unit Capsule 2,000 unit PO QAM Qty: 0 RF: 0 aspirin 81 mg Tablet,Delayed Release (Dr/Ec) 81 mg PO QAM Qty: 0 RF: 0 atorvastatin [Lipitor] 20 mg Tablet 20 mg PO QAM Qty: 0 RF: 0 omeprazole 20 mg Capsule,Delayed Release(Dr/Ec) 20 mg PO QAM Qty: 0 RF: 0 Eliquis 2.5 mg Tablet 2.5 mg PO BID Qty: 0 RF: 0 cyanocobalamin (vitamin B-12) 1,000 mcg Capsule 2,000 mcg PO QAM Qty: 0 RF: 0 metoprolol tartrate 25 mg tablet 12.5 mg PO BID RF: 0 Lumigan 0.01 % Drops 1 drp OPB HS RF: 0 gabapentin 100 mg capsule 200 mg PO HS Qty: 60 RF: 5 levothyroxine [Synthroid] 75 mcg tablet 75 mcg PO QAM RF: 0 timolol maleate 0.5 % drops 1 drp OPL QAM RF: 0 Discharge Orders: Discharge Order (Routine); Ordered 06/11/20 Ordered By: Tricia Espinal Admission Data Admit Date/Time: 06/10/20 15:31 Attending Provider: Tricia Espinal Admit Provider: Tricia Espinal Primary Care Provider: Neo Plascencia Other Providers: Tricia Espinal ; Angela Somers ; Maximo Caro ; Angela Phillip ; Rogerio Blunt. ; [place],[facility]
[2020-06-11 16:22] VITALS: BP 126/55
== END 2020-06-11 16:55 | disposition home health service (06) ==
LOC: ED 14:06 → 2W 14:06

== ENCOUNTER 2020-12-12 15:24 | Observation (INO) ==
[2020-12-12 16:26] LABS: Basophils # (auto) 0.01 K/uL (0-0.2); Basophils % (auto) 0.1 %; Eosinophils # (auto) 0.11 K/uL (0-0.5); Eosinophils % (auto) 1.6 %; Hematocrit (blood only) 37.5 % (37-47); Hemoglobin 12.2 g/dL (12.0-16.0); Immature Granulocytes # (auto) 0.01 K/uL (0.00-0.02); Immature Granulocytes % (auto) 0.1 %; Lymphocytes # (auto) 0.64 K/uL (1.2-3.4); Lymphocytes % (auto) 9.4 %; Mean Corpuscular Hemoglobin 30.1 pg (25-34); Mean Corpuscular Hgb Conc 32.5 g/dL (32-36); Mean Corpuscular Volume 92.6 fL (80-100); Mean Platelet Volume 9.6 fL (7.4-10.4); Monocytes # (auto) 0.66 K/uL (0.11-0.59); Monocytes % (auto) 9.7 %; Neutrophils # (auto) 5.36 K/uL (1.4-6.5); Neutrophils % (auto) 79.1 %; Platelet Count 229 K/uL (130-400); RDW Coefficient of Variation 14.1 % (11.5-14.5); RDW Standard Deviation 47.6 fL (36.4-46.3); Red Blood Count 4.05 M/uL (4.2-5.4); White Blood Count 6.79 K/uL (4.8-10.8)
[2020-12-12 16:34] LABS: Appearance Urine Clear (Clear); Bilirubin Urine Negative (Negative); Blood Urine Negative (Negative); Color Urine Dark Yellow; Glucose Urine UA Negative (Negative); Ketones Urine Trace (Negative); Leukocyte Esterase Urine Negative (Negative); Nitrite Urine Negative (Negative); Protein Urine Negative (Negative); Specific Gravity Urine 1.019 (1.000-1.030); Urobilinogen Urine Negative (Negative)
--- NOTE | 2020-12-12 16:34 | Emergency Department Note ---
Impression & Plan Hallucinations, Stroke-like symptoms ED Provider Note Provider: Sam Perez MD DATE OF SERVICE: 12/12/2020 CHIEF COMPLAINT: Hallucinations HISTORY OF PRESENT ILLNESS: Patient is a 85-year-old female with a past medical history including recurrent UTI, TIA, vision loss, and PE/A. fib currently on Eliquis presenting here today from home reporting increased hallucinations since yesterday evening. Patient states he has had some mild hallucinations in the past but significant increased over the evening yesterday. Reports that she saw about 50 people in her house but she knows they were not real. States they took her phone from her however she was able to call anybody including her daughter lives next door. Patient denies any falls or head pain. Patient states that they are present also with some cats and dogs. They did talk to her at times. Patient states she went to bed they were gone when she woke up later in the morning they returned and thus came here. Patient denies urinary symptoms, abdominal pain, nausea or vomiting, fever, shortness of breath, or chest pain. Does report approximately 40 hours ago on Thursday evening she had a 5-minute episode of what she describes as a "TIA ". States that she had a transient episode of slurred speech and numbness of her entire left arm but then that resolved. Patient states she is significant history of TIA and has followed with neurology before. Patient states she is on Eliquis as well as aspirin. Denies any falls or syncope/near syncope. REVIEW OF SYSTEMS: A total of 10 review of systems was obtained and negative except as stated above in the HPI. PAST MEDICAL HISTORY: As noted above MEDICATIONS: Reviewed home medication list SOCIAL HISTORY: , lives at home by herself, but her daughter lives next door PHYSICAL EXAM: GENERAL: alert and oriented in no acute distress on stretcher Head: normocephalic and atraumatic EYES: No injection, discharge or icterus. Very diminished visual acuity on gross exam NECK: Trachea midline. LUNGS: Airway patent. No retractions. Breath sounds clear with good air entry bilaterally. HEART: Regular rate and rhythm. No chest wall tenderness ABDOMEN: Soft and non-tender, without guarding or rebound. SKIN: Acyanotic, warm, dry, without rashes EXTREMITIES: Without swelling, tenderness or deformity NEUROLOGICAL: No focal deficits. No aphasia. No facial droop or slurred speech. Normal strength and tone in the extremities. Sensation to gross touch normal. EK bpm normal sinus rhythm. No PVC or PAC. No acute ST segment elevation or depression noted. QTc 447. Normal QRS interval. CONTINUOUS CARDIAC MONITORING: was ordered and showed a heart rate of 60s bpm in normal sinus rhythm Patient's laboratory studies and imaging reviewed. Differential includes Infection, dehydration, metabolic abnormality, hypo/hyperglycemia, electrolyte disturbance, anemia, hypoxia, cardiac sources, intracerebral event, toxicologic, neurologic, as well as other pathologies. IMPRESSION/MEDICAL DECISION MAKING: Question is that her symptoms are related to possible recurrent UTI given previous reviewed medical records indicative of some similarities. Not having significant focality or exam or significant depth at this time does report some daily symptoms several days ago. CT the head will be completed. Not a TPA candidate secondary to resolve deficits at this time, timing, and her anticoagulation. Patient is on Eliquis for A. fib. Does not appear to be in significant distress and is aware of the hallucinations she is having. Benign abdomen on exam does not appear to be any respiratory distress. Basic labs, EKG, and urinalysis was sent from a cath sample to the lab. Laboratory studies without significant anemia or leukocytosis. Urinalysis not indicative of infection today surprisingly. Troponin/detectable not abnormal and similar to some previous values. Patient without active chest pain or significant EKG changes I doubt there is acute ACS. Electrolytes without other significant abnormality and renal function appears at baseline. TSH within normal limits. Chest x-ray without no acute findings. CT of the head without acute intracranial abnormality noted but some right-sided vitreous hemorrhages noted. Patient does states she has had some ongoing vision issues but states these are not acutely changed. Do question somewhat of possible underlying stroke condition could be causing her hallucinations. With the patient's permission discussed with her daughter via phone. Chronic right-sided blindness and vitreous hemorrhage was reported by the daughter. Daughter and on reassessment the patient states that the hallucinations are strong enough that she got trapped in her room last night by the hallucinating figures. Discussed with both of them do not see a clear cause here at this time but believe further care at the hospital is indicated given the significance of hallucinations, unknown cause, impact is having however at home, and the fact she lives by herself. But the patient and her daughter were in agreement this plan. The hospitalist was contacted. DIAGNOSIS: Hallucinations, TIA DISPOSITION: Hospitalist will evaluate Patient was agreeable with this plan. Past Med/Surg History Medical History Acute confusion Atrial fibrillation Atrial fibrillation with RVR Central retinal vein occlusion of right eye Dyslipidemia History of breast cancer "intraductal carcinoma left breast, s/p lumpectomy" History of osteoporosis History of pulmonary embolism HTN (hypertension) Hx of MTHFR mutation LUE weakness Numbness of left hand Papillary carcinoma of thyroid SBO (small bowel obstruction) Small bowel obstruction UGIB (upper gastrointestinal bleed) Uterine prolapse UTI (urinary tract infection) Surgical History H/O oophorectomy History of bladder surgery History of cataract surgery History of hysterectomy S/P exploratory laparotomy lysis of adhesions Status post partial mastectomy "left breast, DCIS" Family History Father Stroke Hypertension Mother Heart disease Social History Smoking Status: Never smoker Second Hand Exposure: No; Hx Alcohol Use: Yes Hx Substance Use: No Preferred Language: Maltese Communication Ability: Effective Visual Impairment: Limited Hearing Ability: Normal Ell Teacher Required: No Beliefs That Will Affect Care: None marital status: / Current Living Situation: Alone Current Living Situation Comment: daughter lives close current occupational status: retired Other Information That Helps Us Care for You: No Feels Safe at Home: Yes Assistive Devices: Glasses Allergies Allergies Allergy/AdvReac Type Severity Reaction Status Date / Time tetanus toxoid, adsorbed Allergy Mild SWELLING Verified 12/12/20 18:08 AND REDNESS sulfamethoxazole AdvReac Dizziness Verified 12/12/20 18:08 [From Bactrim] trimethoprim [From Bactrim] AdvReac Dizziness Verified 12/12/20 18:08 Home Meds Home Medications Medication Instructions Recorded Confirmed cholecalciferol (vitamin D3) 1,000 unit PO QAM #0 03/21/17 12/12/20 folic acid 1 mg PO QAM #0 03/21/17 12/12/20 aspirin 81 mg PO QAM #0 10/08/17 12/12/20 atorvastatin [Lipitor] 20 mg PO QAM #0 tab 02/11/18 12/12/20 omeprazole 20 mg PO QAM #0 02/11/18 12/12/20 Eliquis 2.5 mg PO BID #0 tab 03/29/18 12/12/20 cyanocobalamin (vitamin B-12) 2,000 mcg PO QAM #0 03/29/18 12/12/20 Lumigan 1 drp OPB HS 10/11/18 12/12/20 levothyroxine [Synthroid] 75 mcg PO QAM 03/26/19 12/12/20 acetaminophen 500 mg PO Q12H PRN 12/12/20 12/12/20 psyllium [Metamucil Smooth Texture See Rx Instructions .ROUTE .COMPLEX 12/12/20 12/12/20 S/F] timolol maleate 1 drp OPL PM 12/12/20 12/12/20 Previous Rx's Medication Instructions Recorded gabapentin 200 mg PO HS #60 cap 10/15/18 Results & Data (ED) Vital Signs Vital Signs - 24 hr 12/12/20 15:27 12/12/20 16:16 12/12/20 16:24 Temperature 36.8 C Temperature Source Temporal Artery Scan Pulse Rate 66 77 Pulse Rate from SpO2 Sensor 74 Respiratory Rate 15 18 Respiratory Effort / Characteristics Non-Labored Spontaneous Respiratory Depth Normal Blood Pressure 161/84 H 154/113 H Blood Pressure Mean 109 126 Blood Pressure Position Sitting Pulse Oximetry 94 96 96 Oxygen Delivery Method Room Air Room Air Sepsis Recent Fever Within 48 Hours No Sepsis New/Unexplained Change in Mental Status N/A Sepsis Action Taken by Nursing No Action Required 12/12/20 16:30 12/12/20 16:49 12/12/20 17:00 Temperature Temperature Source Pulse Rate 70 74 Pulse Rate from SpO2 Sensor 69 68 Respiratory Rate 18 18 Respiratory Effort / Characteristics Respiratory Depth Blood Pressure 141/84 H 165/100 H Blood Pressure Mean 103 121 Blood Pressure Position Pulse Oximetry 97 95 96 Oxygen Delivery Method Room Air Sepsis Recent Fever Within 48 Hours Sepsis New/Unexplained Change in Mental Status Sepsis Action Taken by Nursing 12/12/20 17:30 Temperature Temperature Source Pulse Rate 71 Pulse Rate from SpO2 Sensor 71 Respiratory Rate 15 Respiratory Effort / Characteristics Respiratory Depth Blood Pressure 169/85 H Blood Pressure Mean 113 Blood Pressure Position Pulse Oximetry 94 Oxygen Delivery Method Sepsis Recent Fever Within 48 Hours Sepsis New/Unexplained Change in Mental Status Sepsis Action Taken by Nursing Laboratory Data Result diagrams: 12/12/20 16:16 12/12/20 16:16 Lab Results 12/12/20 12/12/20 12/12/20 Range/Units 15:50 16:16 16:16 WBC 6.79 (4.8-10.8) K/uL RBC 4.05 L (4.2-5.4) M/uL Hgb 12.2 (12.0-16.0) g/dL Hct 37.5 (37-47) % MCV 92.6 (80-100) fL MCH 30.1 (25-34) pg MCHC 32.5 (32-36) g/dL RDW Std Deviation 47.6 H (36.4-46.3) fL RDW Coeff of Bassem 14.1 (11.5-14.5) % Plt Count 229 (130-400) K/uL MPV 9.6 (7.4-10.4) fL Immature Gran % (Auto) 0.1 % Neut % (Auto) 79.1 % Lymph % (Auto) 9.4 % Leake % (Auto) 9.7 % Eos % (Auto) 1.6 % Baso % (Auto) 0.1 % Neut # (Auto) 5.36 (1.4-6.5) K/uL Lymph # (Auto) 0.64 L (1.2-3.4) K/uL Leake # (Auto) 0.66 H (0.11-0.59) K/uL Eos # (Auto) 0.11 (0-0.5) K/uL Baso # (Auto) 0.01 (0-0.2) K/uL Immature Gran # (Auto) 0.01 (0.00-0.02) K/uL PT 11.0 (9.0-12.0) Seconds INR 1.1 (0.9-1.1) Sodium (136-145) mmol/L Potassium (3.5-5.1) mmol/L Chloride (98-107) mmol/L Carbon Dioxide (21-32) mmol/L Anion Gap (3-11) BUN (7-18) mg/dl Creatinine (0.6-1.2) mg/dl Est Cr Clr Drug Dosing Est GFR ( Amer) Est GFR (Non-Af Amer) BUN/Creatinine Ratio (10-20) Glucose (70-99) mg/dl POC Glucose (70-99) mg/dl Calcium (8.5-10.1) mg/dl Magnesium (1.8-2.4) mg/dl Total Bilirubin (0.2-1) mg/dl AST (15-37) U/L ALT (12-78) U/L Alkaline Phosphatase (45-117) U/L Troponin I (0-0.045) ng/ml Total Protein (6.4-8.2) gm/dl Albumin (3.4-5.0) gm/dl Globulin (2.5-4.0) gm/dl Albumin/Globulin Ratio (0.9-2) TSH (0.300-4.500) uIu/ml Urine Color Dark Yellow Urine Appearance Clear (Clear) Urine pH 6.0 (4.5-7.5) Ur Specific [place] 1.019 (1.000-1.030) Urine Protein Negative (Negative) Urine Glucose (UA) Negative (Negative) Urine Ketones Trace H (Negative) Urine Blood Negative (Negative) Urine Nitrite Negative (Negative) Urine Bilirubin Negative (Negative) Urine Urobilinogen Negative (Negative) Ur Leukocyte Esterase Negative (Negative) COVID-19 Eval Order SARS-CoV-2, RNA, NAAT (NEGATIVE) 12/12/20 12/12/20 12/12/20 Range/Units 16:16 16:47 17:23 WBC (4.8-10.8) K/uL RBC (4.2-5.4) M/uL Hgb (12.0-16.0) g/dL Hct (37-47) % MCV (80-100) fL MCH (25-34) pg MCHC (32-36) g/dL RDW Std Deviation (36.4-46.3) fL RDW Coeff of Bassem (11.5-14.5) % Plt Count (130-400) K/uL MPV (7.4-10.4) fL Immature Gran % (Auto) % Neut % (Auto) % Lymph % (Auto) % Leake % (Auto) % Eos % (Auto) % Baso % (Auto) % Neut # (Auto) (1.4-6.5) K/uL Lymph # (Auto) (1.2-3.4) K/uL Leake # (Auto) (0.11-0.59) K/uL Eos # (Auto) (0-0.5) K/uL Baso # (Auto) (0-0.2) K/uL Immature Gran # (Auto) (0.00-0.02) K/uL PT (9.0-12.0) Seconds INR (0.9-1.1) Sodium 142 (136-145) mmol/L Potassium 3.9 (3.5-5.1) mmol/L Chloride 109 H (98-107) mmol/L Carbon Dioxide 29 (21-32) mmol/L Anion Gap 4.0 (3-11) BUN 21 H (7-18) mg/dl Creatinine 0.73 (0.6-1.2) mg/dl Est Cr Clr Drug Dosing Not Reportable Est GFR ( Amer) 85.8 Est GFR (Non-Af Amer) 74.1 BUN/Creatinine Ratio 29.2 H (10-20) Glucose 89 (70-99) mg/dl POC Glucose 98 (70-99) mg/dl Calcium 8.9 (8.5-10.1) mg/dl Magnesium 2.2 (1.8-2.4) mg/dl Total Bilirubin 0.4 (0.2-1) mg/dl AST 20 (15-37) U/L ALT 33 (12-78) U/L Alkaline Phosphatase 136 H (45-117) U/L Troponin I 0.017 (0-0.045) ng/ml Total Protein 6.8 (6.4-8.2) gm/dl Albumin 3.4 (3.4-5.0) gm/dl Globulin 3.4 (2.5-4.0) gm/dl Albumin/Globulin Ratio 1.0 (0.9-2) TSH 1.600 (0.300-4.500) uIu/ml Urine Color Urine Appearance (Clear) Urine pH (4.5-7.5) Ur Specific [place] (1.000-1.030) Urine Protein (Negative) Urine Glucose (UA) (Negative) Urine Ketones (Negative) Urine Blood (Negative) Urine Nitrite (Negative) Urine Bilirubin (Negative) Urine Urobilinogen (Negative) Ur Leukocyte Esterase (Negative) COVID[facility]19 [email or web address] SARS-CoV-2, RNA, NAAT (NEGATIVE) 12/12/20 Range/Units 17:23 WBC (4.8-10.8) K/uL RBC (4.2-5.4) M/uL Hgb (12.0-16.0) g/dL Hct (37-47) % MCV (80-100) fL MCH (25-34) pg MCHC (32-36) g/dL RDW Std Deviation (36.4-46.3) fL RDW Coeff of Bassem (11.5-14.5) % Plt Count (130-400) K/uL MPV (7.4-10.4) fL Immature Gran % (Auto) % Neut % (Auto) % Lymph % (Auto) % Leake % (Auto) % Eos % (Auto) % Baso % (Auto) % Neut # (Auto) (1.4-6.5) K/uL Lymph # (Auto) (1.2-3.4) K/uL Leake # (Auto) (0.11-0.59) K/uL Eos # (Auto) (0-0.5) K/uL Baso # (Auto) (0-0.2) K/uL Immature Gran # (Auto) (0.00-0.02) K/uL PT (9.0-12.0) Seconds INR (0.9-1.1) Sodium (136-145) mmol/L Potassium (3.5-5.1) mmol/L Chloride (98-107) mmol/L Carbon Dioxide (21-32) mmol/L Anion Gap (3-11) BUN (7-18) mg/dl Creatinine (0.6-1.2) mg/dl Est Cr Clr Drug Dosing Est GFR ( Amer) Est GFR (Non-Af Amer) BUN/Creatinine Ratio (10-20) Glucose (70-99) mg/dl POC Glucose (70-99) mg/dl Calcium (8.5-10.1) mg/dl Magnesium (1.8-2.4) mg/dl Total Bilirubin (0.2-1) mg/dl AST (15-37) U/L ALT (12-78) U/L Alkaline Phosphatase (45-117) U/L Troponin I (0-0.045) ng/ml Total Protein (6.4-8.2) gm/dl Albumin (3.4-5.0) gm/dl Globulin (2.5-4.0) gm/dl Albumin/Globulin Ratio (0.9-2) TSH (0.300-4.500) uIu/ml Urine Color Urine Appearance (Clear) Urine pH (4.5-7.5) Ur Specific [place] (1.000-1.030) Urine Protein (Negative) Urine Glucose (UA) (Negative) Urine Ketones (Negative) Urine Blood (Negative) Urine Nitrite (Negative) Urine Bilirubin (Negative) Urine Urobilinogen (Negative) Ur Leukocyte Esterase (Negative) COVID-19 Eval Order SARS-CoV-2, RNA, NAAT NEGATIVE (NEGATIVE) Administered Medications Apixaban (Apixaban 2.5 Mg Tab) 2.5 mg PO BID ASHANTI Stop: 01/11/21 20:59 Last Admin: 12/12/20 23:57 Dose: 2.5 mg Documented by: [id number] Bimatoprost (Bimatoprost 0.01% Op Soln 2.5 Ml Btl) 1 drops OPB HS ASHANTI Stop: 01/11/21 20:59 Last Admin: 12/12/20 23:01 Dose: 1 drops Documented by: [id number] Gabapentin (Gabapentin 100 Mg Cap) 200 mg PO HS ASHANTI Stop: 01/11/21 20:59 Last Admin: 12/12/20 23:03 Dose: 200 mg Documented by: [id number] Timolol Maleate (Timolol Maleate 0.5% Op Soln 5 Ml Btl) 1 drops OPL PM ASHANTI Stop: 01/11/21 20:59 Last Admin: 12/12/20 23:01 Dose: Not Given Documented by: [id number] Discharge Plan Visit Data Chief Complaint: Altered Mental Status Stated Complaint: HALLUCINATIONS ED Provider: Sam Perez Discharge Problem: Hallucinations, Stroke-like symptoms Patient Disposition: Admitted As Inpatient Discharge Instructions Interventions: ED Discharge Assessment Last Done: 12/12/20 18:45
--- NOTE | 2020-12-12 16:35 | XRay Report ---
XR chest 1V portable HISTORY: 85 years-old Female weakness acute weakness COMPARISON: Chest radiograph 06/10/2020 TECHNIQUE: Portable AP view of the chest FINDINGS: Cardiac silhouette is enlarged, unchanged. Chronic interstitial coarsening with mildly improved aerat ion of the upper lung zones from comparison. Stable 10 mm nodular density of the left upper lung. Unc hanged right hemidiaphragmatic elevation without pneumothorax, pleural effusion, overt pulmonary patsy a or new airspace consolidation. Degenerative changes of the shoulders and spine. IMPRESSION: Chronic findings as above without acute process. ACT 112: Negative or not required by law. The above report was generated using voice recognition software. It may contain grammatical, syntax o r spelling errors. Electronically signed by: Jonathan Helton M.D. 12/12/2020 4:33 PM
[2020-12-12 16:42] LABS: INR 1.1 (0.9-1.1)
[2020-12-12 16:50] LABS: Alanine Aminotransferase 33 U/L (12-78); Albumin Level 3.4 gm/dl (3.4-5.0); Aspartate Aminotransferase 20 U/L (15-37); BUN Creatinine Ratio 29.2 (10-20); Blood Urea Nitrogen 21 mg/dl (7-18); Calcium 8.9 mg/dl (8.5-10.1); Carbon Dioxide 29 mmol/L (21-32); Chloride 109 mmol/L (98-107); Est GFR (African American) 85.8; Est GFR (Non-African American) 74.1; Glucose 89 mg/dl (70-99); Magnesium 2.2 mg/dl (1.8-2.4); Potassium 3.9 mmol/L (3.5-5.1); Sodium 142 mmol/L (136-145)
--- NOTE | 2020-12-12 16:50 | CT Scan Report ---
CT head/brain wo con CLINICAL HISTORY: 85 years-old Female with hallucinations, L arm numbness transient. Acutely altered mental status TECHNIQUE: Multiple axial CT images of the head were obtained without contrast. A dose lowering tech nique was utilized adhering to the principles of ALARA. CT DOSE: 537.48 mGy.cm COMPARISON: CTA had and neck and CT head 06/10/2020. FINDINGS: No acute intracranial hemorrhage, midline shift, intracranial mass, hydrocephalus, territorial ischem ia or abnormal extra-axial collection. Age-related involutional changes with chronic microvascular is chemic disease. Cerebral vascular calcifications. The calvarium is intact. Prior left-sided lens replacement. Layering hemorrhage is noted in the right posterior globe posterior laterally. The paranasal sinuses, mastoid air cells, and middle ear caviti es are clear. IMPRESSION: 1. No acute intracranial abnormality. 2. Right-sided vitreous hemorrhage. Ophthalmologic consultation is needed. ACT 112: Negative or not required by law. The above report was generated using voice recognition software. It may contain grammatical, syntax o r spelling errors. Electronically signed by: Jonathan Helton M.D. 12/12/2020 4:49 PM
[2020-12-12 17:01] LABS: Alkaline Phosphatase 136 U/L (45-117); Bilirubin,Total 0.4 mg/dl (0.2-1); Globulin 3.4 gm/dl (2.5-4.0); Total Protein 6.8 gm/dl (6.4-8.2); Troponin I 0.017 ng/ml (0-0.045)
--- NOTE | 2020-12-12 18:41 | History & Physical Report ---
Date of Service December 12, 2020 Assessment & Plan (1) Hallucinations: (2) Left arm weakness: Pt is 85 y/o F with PMH TIA, visual impairment right eye, central retinal vein occlusion, PAF on Eliquis, papillary thyroid carcinoma, dyslipidemia, MTHFR deficiency presented to ER with c/o episode of left arm weakness 2 days ago and visual hallucinations x [address] head: no acute intracranial findings; UA unremarkable No new medications. No other noted sources of infection R/O stroke -Tele to monitor for arrhythmias -continue statin -MRI brain -PT/OT consult -continue aspirin -monitor for any altered mental status/hallucinations -neurology consult PAF Continue Eliquis Off metoprolol secondary to h/o hypotension Dyslipidemia Continue statin H/O retinal vein occlusion CT Head: Right-sided vitreous hemorrhage Continue ophthalmology/retinal specialist follow up DVT Prophylaxis -On Eliquis DNR/DNI as per discussion with pt Follows with Dr Plascencia for routine care Pt was seen and care coordinated with Dr Summers. See addendum (3) Stroke-like symptoms: History of Present Illness Chief Complaint: Visual hallucinations, left arm numbness Primary Care Provider: Neo Plascencia MD Pt is 85 y/o F with PMH TIA, visual impairment right eye, central retinal vein occlusion, PAF on Eliquis, papillary thyroid carcinoma, dyslipidemia, MTHFR deficiency presented to ER with c/o episode of left arm weakness 2 days ago and visual hallucinations x 1 week. States 2 days ago had episode of left arm numbness and weakness and she felt she had slurred speech. Symptoms lasted approx 5 minutes and resolved. Pt reports h/o similar episodes in past being diagnosed with TIA. Denies any GUDINO, dizziness, lower extremity weakness, facial paresthesias, noted facial drooping. Denies any current extremity weakness. Uses can or pushes a "cart" around. Denies recent falls. Pt lives alone with daughter living near by. Reports has aide coming in 3 days a week. Pt reports able to do her own medication and denies any known med mix ups. Reports visual hallucinations x 1 week. Reports intermittent episodes of seeing people in her house and those people are re-arranging objects so she cannot find them. Denies hearing any voices. States has had these in past however has never told anyone about it. Denies suicidal or homicidal ideations. Denies any current visual hallucinations. Pt reports chronic visual loss with right eye worse and feels visual loss worsening for past 1-2 weeks, however she is not able to further explain. She follows with outpatient ophthalmology and retinal specialist. Denies any new medications. Denies any other OTC/herbal med use. Denies fever/chills, diaphoresis, N/V/D/C, syncope, neck pain, CP, SOB, orthopnea, palpitations, cough, sore throat, choking, otalgia, rhinorrhea, abdominal pain, extremity edema, rashes, urinary symptoms. Allergies Allergy/AdvReac Type Severity Reaction Status Date / Time tetanus toxoid, adsorbed Allergy Mild SWELLING Verified 12/12/20 18:08 AND REDNESS sulfamethoxazole AdvReac Dizziness Verified 12/12/20 18:08 [From Bactrim] trimethoprim [From Bactrim] AdvReac Dizziness Verified 12/12/20 18:08 Home Medications Medication Instructions Recorded Confirmed Type cholecalciferol (vitamin D3) 1,000 unit PO QAM #0 03/21/17 12/12/20 History folic acid 1 mg PO QAM #0 03/21/17 12/12/20 History aspirin 81 mg PO QAM #0 10/08/17 12/12/20 History atorvastatin [Lipitor] 20 mg PO QAM #0 tab 02/11/18 12/12/20 History omeprazole 20 mg PO QAM #0 02/11/18 12/12/20 History Eliquis 2.5 mg PO BID #0 tab 03/29/18 12/12/20 History cyanocobalamin (vitamin B-12) 2,000 mcg PO QAM #0 03/29/18 12/12/20 History Lumigan 1 drp OPB HS 10/11/18 12/12/20 History gabapentin 200 mg PO HS #60 cap 10/15/18 12/12/20 Rx levothyroxine [Synthroid] 75 mcg PO QAM 03/26/19 12/12/20 History acetaminophen 500 mg PO Q12H PRN 12/12/20 12/12/20 History psyllium [Metamucil Smooth Texture See Rx Instructions .ROUTE .COMPLEX 12/12/20 12/12/20 History S/F] timolol maleate 1 drp OPL PM 02/24/21 02/24/21 History Past Med/Surg History Medical History Acute confusion Atrial fibrillation Atrial fibrillation with RVR Central retinal vein occlusion of right eye Dyslipidemia History of breast cancer "intraductal carcinoma left breast, s/p lumpectomy" History of osteoporosis History of pulmonary embolism HTN (hypertension) Hx of MTHFR mutation LUE weakness Numbness of left hand Papillary carcinoma of thyroid SBO (small bowel obstruction) Small bowel obstruction UGIB (upper gastrointestinal bleed) Uterine prolapse UTI (urinary tract infection) Surgical History H/O oophorectomy History of bladder surgery History of cataract surgery History of hysterectomy S/P exploratory laparotomy lysis of adhesions Status post partial mastectomy "left breast, DCIS" Family History Father Stroke Hypertension Mother Heart disease Social History Smoking Status: Never smoker Second Hand Exposure: No; Hx Alcohol Use: Yes Hx Substance Use: No Preferred Language: Nepalese Communication Ability: Effective Visual Impairment: Limited Hearing Ability: Normal Diabetes Territory Manager Required: No Beliefs That Will Affect Care: None marital status: / Current Living Situation: Alone Current Living Situation Comment: daughter lives close current occupational status: retired Other Information That Helps Us Care for You: No Feels Safe at Home: Yes Assistive Devices: Glasses Review of Systems Review of Systems: All systems reviewed & are unremarkable except as noted in HPI & below Physical Exam Physical Exam: General: no distress, thin Head: normocephalic, atraumatic Eyes: PERRL, pt unable to distinguish fingers in right eye visual field and has some inconsistency in left eye; conjunctiva non-injected, anicteric ENT: normal inspection external ears, nose, mucous membranes moist Neck: supple, trachea midline Lungs: clear, no respiratory distress, no wheezing/rhonchi/rales CV: RRR, no murmur, no pretibial edema Abd: normal BS, soft, non-tender Ext: no cyanosis, no calf tenderness Neuro: A&O x 3, normal affect, facial sensation is intact and symmetric, face is strong and symmetric, hearing grossly intact, no dysarthria, shoulder shrug intact, tongue is midline, normal movement, no fasciculations,no apparent unilateral extremity weakness Skin: warm, dry Results & Data Results & Data ([facility]) Vital Signs (Past 12 Hours) Vital Signs Temp Pulse Resp BP Pulse Ox 12/12/20 18:00 77 17 162/95 H 96 12/12/20 17:30 71 15 169/85 H 94 12/12/20 17:00 74 18 165/100 H 96 12/12/20 16:49 95 12/12/20 16:30 70 18 141/84 H 97 12/12/20 16:24 96 12/12/20 16:16 77 18 154/113 H 96 12/12/20 15:27 36.8 C 66 15 161/84 H 94 Laboratory Results Short CBC 12/12/20 Range/Units 16:16 WBC 6.79 (4.8-10.8) K/uL Hgb 12.2 (12.0-16.0) g/dL Hct 37.5 (37-47) % Plt Count 229 (130-400) K/uL BMP 12/12/20 16:16 Sodium 142 Potassium 3.9 Chloride 109 H Carbon Dioxide 29 BUN 21 H Creatinine 0.73 Glucose 89 Calcium 8.9 Cardiac Enzymes 12/12/20 Range/Units 16:16 Troponin I 0.017 (0-0.045) ng/ml Liver Function 12/12/20 Range/Units 16:16 Total Bilirubin 0.4 (0.2-1) mg/dl AST 20 (15-37) U/L ALT 33 (12-78) U/L Alkaline Phosphatase 136 H (45-117) U/L Albumin 3.4 (3.4-5.0) gm/dl Urine 12/12/20 Range/Units 15:50 Urine Color Dark Yellow Urine Appearance Clear (Clear) Urine pH 6.0 (4.5-7.5) Ur Specific [place] 1.019 (1.000-1.030) Urine Protein Negative (Negative) Urine Glucose (UA) Negative (Negative) Diagnostic Findings CT HEAD: IMPRESSION: 1. No acute intracranial abnormality. 2. Right-sided vitreous hemorrhage. Ophthalmologic consultation is needed. CXR: IMPRESSION: Chronic findings as above without acute process. Code Status & VTE Plan VTE Prophylaxis Plan VTE Prophylaxis will be ordered: Yes Supervising Physician Co-Signing Physician Notes I have seen and examined the patient and have discussed the case with the provider above. I agree with the assessment and plan as stated with the following exceptions. The patient is an 85 yo F with a reported h/o TIA in the past. She also has a h/o right eye CRVO, atrial fibrillation, h/o PE and MTHFR mutation and is on ASA and Eliquis. Per ER notes, she is known to have vitreal hemorrhages in her right eye, however, the patient is unaware of this diagnosis. She is oriented and answers questions appropriately. She reports no current visual hallucinations or L arm numbness or any other stroke symptoms at this time. She is unsure of the temporal relationship of symptom onset this week but describes a migratory numbness/weakness that travels up her left arm, starting in the hand and moving proximally to the shoulder. It doesn't involve the face or the leg. This and the visual hallucinations have occurred in the past. She denies any headaches or h/o headaches. She feels her vision is generally worse this week and isn't sure if this started after the TIA symptoms. She cannot describe how her vision is different from her baseline. She is able to accurately identify finger amount with her left eye, but cannot see anything with her right eye. Neuro exam otherwise unremarkable with intact 2/4 reflexes throughout, EOMI, sensation intact throughout, normal cognition. Gait and balance was deferred as patient appears to be frail and a fall risk. CT head negative for acute intracranial abnormality. No other obvious infectious etiology present that may be contributing. Although consideration was given to gabapentin as a culprit, this seems less of an issue as she has been on this consistently since last January. Will proceed with a noncontrast MRI. Etiology includes but not limited to stroke, tammi concerned for occipital lobe stroke (visual cortex) with hallucinations vs acephalgic complicated migraine (migratory numbness suggestive of vasospasm). Cont current antiplatelet and anticoagulant therapy pending further recommendations by Neurology. Allow permissive hypertension to promote cerebral perfusion. Do not treat unless BP >220/110. Loli Summers DO [facility] Hospitalist
[2020-12-12] MEDS ORDERED: PHARMACIST DISCHARGE MED REC CONSULT PRN (19:46)
[2020-12-12] MEDS ORDERED: ACETAMINOPHEN 325 MG TAB PO PRN (19:46)
[2020-12-12] MEDS ORDERED: ACETAMINOPHEN HOME PACK 500 MG TABLET PO PRN (19:46)
[2020-12-12] MEDS ORDERED: TIMOLOL MALEATE 0.5% OP SOLN 5 ML BTL OPB SCH (21:00)
[2020-12-12] MEDS ORDERED: APIXABAN 2.5 MG TAB PO SCH (21:00)
[2020-12-12] MEDS: BIMATOPROST 0.01% OP SOLN 2.5 ML BTL OPB SCH (23:01)
[2020-12-12] MEDS: TIMOLOL MALEATE 0.5% OP SOLN 5 ML BTL OPL SCH (23:01)
[2020-12-12] MEDS: GABAPENTIN 100 MG CAP PO SCH (23:03)
[2020-12-13] MEDS ORDERED: APIXABAN 2.5 MG TAB PO SCH (00:20)
[2020-12-13] MEDS: LEVOTHYROXINE SODIUM 75 MCG TABLET PO SCH (05:37)
[2020-12-13 07:06] LABS: Hematocrit (blood only) 36.3 % (37-47); Hemoglobin 11.8 g/dL (12.0-16.0); Mean Corpuscular Hemoglobin 29.9 pg (25-34); Mean Corpuscular Hgb Conc 32.5 g/dL (32-36); Mean Corpuscular Volume 91.9 fL (80-100); Mean Platelet Volume 9.6 fL (7.4-10.4); Platelet Count 208 K/uL (130-400); RDW Coefficient of Variation 14.2 % (11.5-14.5); RDW Standard Deviation 47.8 fL (36.4-46.3); Red Blood Count 3.95 M/uL (4.2-5.4); White Blood Count 5.41 K/uL (4.8-10.8)
[2020-12-13 07:16] LABS: Estimated Average Glucose 128 mg/dl; Hemoglobin A1C 6.1 % (4.5-5.6)
--- NOTE | 2020-12-13 07:36 | Magnetic Resonance Report ---
MRI OF THE BRAIN WITHOUT CONTRAST CLINICAL HISTORY: Left upper extremity numbness. Possible acute stroke. COMPARISON STUDY: Noncontrast head CT dated 12/12/2020 FINDINGS: Sagittal T1, axial diffusion, proton density and T2 weighted axial, coronal FLAIR, and axial T1-weigh david images were acquired. No intra or extra-axial mass lesions are visualized Axial diffusion-weighted images reveal no evidence of acute or subacute infarction. There is no evidence of ventricular dilatation. Proton density T2-weighted and FLAIR images reveal scattered foci of increased T2 signal within the w charmaine matter, likely on a small vessel basis. There are no abnormal flow voids. There is a right vitreous hemorrhage. IMPRESSION: 1. Right globe fluid fluid level consistent with a vitreous hemorrhage. Ophthalmologic consultation r ecommended 2. Otherwise no acute intracranial findings 3. No evidence of intracranial mass on this noncontrast study 4. No evidence of acute or subacute infarction 5. Foci of increased T2 and FLAIR signal within the white matter likely on a small vessel ischemic ba sis ACT 112: Negative or not required by law. Electronically signed by: Jericho Ponce M.D. 12/13/2020 7:35 AM
[2020-12-13 07:38] LABS: Calcium 8.3 mg/dl (8.5-10.1); Creatinine Clr Calc Pharmacy 48.3 ml/min; Est GFR (African American) 95.5; Est GFR (Non-African American) 82.4; Potassium 3.7 mmol/L (3.5-5.1)
[2020-12-13] MEDS: ASPIRIN 81 MG ECTAB PO SCH (07:53)
[2020-12-13] MEDS: CHOLECALCIFEROL 1,000 UNITS 25 MCG TAB PO SCH (07:53)
[2020-12-13] MEDS: PANTOprazole 40 MG TAB PO SCH (07:53)
[2020-12-13] MEDS: CYANOCOBALAMIN 500 MCG TABLET (VITAMIN B-12) PO SCH (07:53)
[2020-12-13] MEDS: FOLIC ACID 1 MG TAB PO SCH (07:54)
[2020-12-13] MEDS: ATORVASTATIN 40 MG TAB PO SCH (07:54)
[2020-12-13] MEDS: APIXABAN 2.5 MG TAB PO SCH ×2 (07:55→19:44)
[2020-12-13] MEDS ORDERED: ATORVASTATIN 20 MG TAB PO SCH (09:00)
--- NOTE | 2020-12-13 10:44 | Neurology Consultation ---
Date of Consultation December 13, 2020 Assessment & Plan (1) Stroke-like symptoms: 1. symptoms have resolved 2. continue aspirin 81 mg and Eliquis 2.5 mg twice daily 3. needs nursing assessment of home safety lives alone 4. fall precautions Present on Admission?: Yes (2) Hallucinations: 1. psychiatry should be contact to assess for hallucinations- if not inpatient out patient Present on Admission?: Yes Supervising Physician Co-Signing Physician Notes I have seen and discussed above patient with Dr Maximo Caro, neurology I know this patient for multiple visits over the past 10 to 15 years. She has had TIAs many which do not demonstrate changes on MRI and I have always been cur ious about whether some of these may be migrainous in type but she often has headaches with them and now presented with some left arm weakness paresthesias and a headache that is largely resolved and nothing again on MRI that looks like an acute cerebrovascular accident. 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 but in her case are complicated by some delusional thinking about these individuals moving her furniture or somehow altering her environment She finds these very anxiety producing and would like them to "go away" At this point I am not going to suggest we change her anticoagulation as am not sure the event in question was not yet another of her possible vasospastic mediated transient ischemic events and certainly she already has had a significant hemorrhage in the right I and further anticoagulation may put her left eye at risk particularly since she is getting intraocular injections for what I assume is macular degeneration. She has an eye appointment on sepk for tomorrow and hopefully we can get her there for an assessment as she seems to feel things have gotten significantly worse over 3 weeks In terms of the hallucinations I think psychiatry ought to get involved here. I have never been impressed that atypical neuroleptics or indeed anything alters the Hay Bonnet type of visual cortical "release" phenomenon and the visually impaired but in her case with some of the ideas of reference and delusional thinking associated with these perhaps an atypical neuroleptic will alleviate some of her anxiety This remains an outpatient assessment and perhaps this can be arranged in the future We will see her in the office in about 3 to 4 weeks but I think the paramount issue now is whether any of her left monocular vision can be saved or whether this is an issue she is going to need to deal with and if so I do not know how she is functioning in her home environment in any safe fashion and we may need to get social service involved or the office of aging involved on an outpatient basis For now we are going to sign off the case as apparently plans are to discharge her tonight and hope to get her to the fence laborer tomorrow Maximo Caro MD History of Present Illness Reason for Consultation: transient left arm numbness Requesting Physician: Iain Dorsey MD Attending Physician: Iain Dorsey MD History of Present Illness Aleax is 85 year old male with PMH TIA, visual impairment right eye, central retinal vein occlusion, PAF on Eliquis, papillary thyroid carcinoma, HLD, MTHFR deficiency presented to [facility] with an episode of left arm weakness 2 days ago and visual hallucinations x 1 week. Two days ago had episode of left arm numbness and weakness and she felt she had slurred speech which lasted approx 5 minutes and resolved. she has a history of a similar episodes in past being diagnosed with TIA. She lives alone and her daughter lives close by. She takes care of her own medication. She has been having visual hallucinations x 1 week. There have been intermittent episodes of seeing people in her house and those people are re-arranging objects so she cannot find them. she has chronic visual loss with right eye worse and feels visual loss worsening for past 1-2 weeks. She has an appointment with the eye doctor for follow up. 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 Complaining of the hallucinations and people in her house moving things so she can't find them. denies CP, SOB, abdominal pain, N, V, falls, +vision loss bilaterally, hallucinations and delusions. Allergies Allergy/AdvReac Type Severity Reaction Status Date / Time tetanus toxoid, adsorbed Allergy Mild SWELLING Verified 12/12/20 18:08 AND REDNESS sulfamethoxazole AdvReac Dizziness Verified 12/12/20 18:08 [From Bactrim] trimethoprim [From Bactrim] AdvReac Dizziness Verified 12/12/20 18:08 Home Medications Medication Instructions Recorded Confirmed Type cholecalciferol (vitamin D3) 1,000 unit PO QAM #0 03/21/17 12/12/20 History folic acid 1 mg PO QAM #0 03/21/17 12/12/20 History aspirin 81 mg PO QAM #0 10/08/17 12/12/20 History atorvastatin [Lipitor] 20 mg PO QAM #0 tab 02/11/18 12/12/20 History omeprazole 20 mg PO QAM #0 02/11/18 12/12/20 History Eliquis 2.5 mg PO BID #0 tab 03/29/18 12/12/20 History cyanocobalamin (vitamin B-12) 2,000 mcg PO QAM #0 03/29/18 12/12/20 History Lumigan 1 drp OPB HS 10/11/18 12/12/20 History gabapentin 200 mg PO HS #60 cap 10/15/18 12/12/20 Rx levothyroxine [Synthroid] 75 mcg PO QAM 03/26/19 12/12/20 History acetaminophen 500 mg PO Q12H PRN 12/12/20 12/12/20 History psyllium [Metamucil Smooth Texture See Rx Instructions .ROUTE .COMPLEX 12/12/20 12/12/20 History S/F] timolol maleate 1 drp OPL PM 12/12/20 12/12/20 History Patient History Medical History Acute confusion Atrial fibrillation Atrial fibrillation with RVR Central retinal vein occlusion of right eye Dyslipidemia History of breast cancer "intraductal carcinoma left breast, s/p lumpectomy" History of osteoporosis History of pulmonary embolism HTN (hypertension) Hx of MTHFR mutation LUE weakness Numbness of left hand Papillary carcinoma of thyroid SBO (small bowel obstruction) Small bowel obstruction UGIB (upper gastrointestinal bleed) Uterine prolapse UTI (urinary tract infection) Surgical History H/O oophorectomy History of bladder surgery History of cataract surgery History of hysterectomy S/P exploratory laparotomy lysis of adhesions Status post partial mastectomy "left breast, DCIS" Family History Father Stroke Hypertension Mother Heart disease Social History Smoking Status: Never smoker Second Hand Exposure: No; Hx Alcohol Use: Yes Hx Substance Use: No Preferred Language: Kosovan Communication Ability: Effective Visual Impairment: Limited Hearing Ability: Normal Filtrose Crusher Required: No Beliefs That Will Affect Care: None marital status: / Current Living Situation: Alone Current Living Situation Comment: daughter lives close current occupational status: retired Other Information That Helps Us Care for You: No Feels Safe at Home: Yes Assistive Devices: Glasses Review of Systems Review of Systems: All systems reviewed & are unremarkable except as noted in HPI & below Physical Exam Physical Exam: Physical Exam: Constitutional: appearance nourished thin frail Ears, Nose, Mouth and Throat: mucous membranes moist, no injection and skin normal, eyes normal Cardiovascular: normal S-1 and S-2 and regular rate and rhythm Respiratory: clear to auscultation (CTA) and no rales, ronchi or wheeze Musculoskeletal: no peripheral edema and good distal pulses Skin: no stigmata of neurocutaneous disease noted and normal and intact Eyes: extraocular muscles intact (EOMI) and pupils equal, round and reactive to light (PERRL) NEUROLOGIC EXAMINATION: Mental status: Alert and interactive Oriented to full date and location Oriented to person Speech fluent with no evidence of aphasia Cranial Nerves facial features symmetric Reflexes: Deep tendon reflexes were symmetrical and graded 2/5. Sensory: light cool touch Coordination: dysmetric finger to nose Gait/Stance: Posture sitting in bedside chair Motor: Negative for pronator drift of out stretched arms with eyes closed. Strength: hand software verification engineer biceps 4+/5, hip flex 4+/5 Results & Data ([facility]) Vital Signs (Past 12 Hours) Vital Signs Temp Pulse Pulse Resp BP Pulse Ox 12/13/20 07:29 36.3 C L 64 18 146/67 H 95 12/13/20 06:37 64 12/13/20 02:40 36.6 C 73 18 121/72 97 12/12/20 23:29 36.6 C 66 18 169/102 H 98 Laboratory Results Abnormal lab results 12/12/20 12/12/20 12/12/20 Range/Units 15:50 16:16 16:16 RBC 4.05 L (4.2-5.4) M/uL Hgb (12.0-16.0) g/dL Hct (37-47) % RDW Std Deviation 47.6 H (36.4-46.3) fL Lymph # (Auto) 0.64 L (1.2-3.4) K/uL [place] # (Auto) 0.66 H (0.11-0.59) K/uL Chloride 109 H (98-107) mmol/L BUN 21 H (7-18) mg/dl Creatinine (0.6-1.2) mg/dl BUN/Creatinine Ratio 29.2 H (10-20) Hemoglobin A1c (4.5-5.6) % Calcium (8.5-10.1) mg/dl Alkaline Phosphatase 136 H (45-117) U/L Urine Ketones Trace H (Negative) 12/13/20 12/13/20 12/13/20 Range/Units 06:52 06:52 06:52 RBC 3.95 L (4.2-5.4) M/uL Hgb 11.8 L (12.0-16.0) g/dL Hct 36.3 L (37-47) % RDW Std Deviation 47.8 H (36.4-46.3) fL Lymph # (Auto) (1.2-3.4) K/uL [place] # (Auto) (0.11-0.59) K/uL Chloride 108 H (98-107) mmol/L BUN 23 H (7-18) mg/dl Creatinine 0.59 L (0.6-1.2) mg/dl BUN/Creatinine Ratio 39.0 H (10-20) Hemoglobin A1c 6.1 H (4.5-5.6) % Calcium 8.3 L (8.5-10.1) mg/dl Alkaline Phosphatase (45-117) U/L Urine Ketones (Negative) Diagnostic Findings MRI brain Right globe fluid fluid level consistent with a vitreous hemorrhage. Ophthalmologic consultation recommended Otherwise no acute intracranial findings No evidence of intracranial mass on this noncontrast study No evidence of acute or subacute infarction Foci of increased T2 and FLAIR signal within the white matter likely on a small vessel ischemic basis
--- NOTE | 2020-12-13 14:34 | Hospitalist Progress Note ---
Date of Service December 13, 2020 Assessment & Plan (1) Hallucinations: (2) Left arm weakness: Patient is an 85 yr female with H/O TIA, visual impairment right eye, central retinal vein occlusion, PAF on Eliquis, papillary thyroid carcinoma, dyslipidemia, MTHFR deficiency presented to ER with c/o episode of left arm weakness 2 days ago and visual hallucinations x 1 week Stroke like symptoms ? TIA H/O Hay Bonnet Syndrome, Left central retinal vein occlusion, right vitreal hemorrhage -MRI Brain:Right globe fluid fluid level consistent with a vitreous hemorrhage. Ophthalmologic consultation recommended. Otherwise no acute intracranial findings. No evidence of intracranial mass on this noncontrast study. No evidence of acute or subacute infarction. Foci of increased T2 and FLAIR signal within the white matter likely on a small vessel ischemic basis - CT Head:No acute intracranial abnormality. Right-sided vitreous hemorrhage. Ophthalmologic consultation is needed. -Neck CTA:Unremarkable CTA of the neck. No stenosis. No dissection. -Head CTA:No central vessel occlusion. 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 -Continue PT/OT--Patient not interested in Rehab placement -Discussed with ophthalmology Luciano and over the phone--Needs follow up as outpatient -Neurology Consulted -Continue aspirin, apixaban, statin (Ok to continue as per Ophthalmology) -Await for neurology recommendations PAF Continue Eliquis Off metoprolol secondary to h/o hypotension Dyslipidemia Continue statin H/O retinal vein occlusion CT Head: Right-sided vitreous hemorrhage Continue ophthalmology/retinal specialist follow up DVT Px On Eliquis Code Status DNR/DNI (3) Stroke-like symptoms: Admission and Anticipated Discharge Date Admission Date: December 12, 2020 Subjective Patient is seen and examined at bedside Left arm weakness resolved States having chronic right eye blindness, left blurry vision Also states having worsening visual hallucinations Discussed with her primary ophthalmologists--Dr. Wolf and Also discussed with patient's family over the phone Denies chest pain, dyspnea, dizziness, nausea, abdominal pain Offers no other complaints Review of Systems Review of Systems: All systems reviewed & are unremarkable except as noted in HPI & below Physical Exam Physical Exam: Physical Exam: Vitals signs as noted above General Appearance:Thin, Frail, no apparent distress Head: normocephalic, Atraumatic Eyes: normal inspection, EOMI, +Chronic R eye blindness, Left eye blurry Neck: supple, Trachea midline Respiratory/Chest: Normal breath sounds, CTA Cardiovascular: S1, S2, No murmur Abdomen/GI:Soft, Non tender, Bowel sounds present Extremities/Musculoskelatal:normal inspection, no edema Neurologic/Psych:AAOX3, grossly no focal neurological deficits Skin: normal color, warm Results & Data Results & Data ([facility]) Vital Signs (Past 12 Hours) Vital Signs Temp Pulse Pulse Resp BP Pulse Ox 12/13/20 11:26 36.7 C 65 18 144/71 H 99 12/13/20 07:29 36.3 C L 64 18 146/67 H 95 12/13/20 07:15 62 12/13/20 06:37 64 12/13/20 02:40 36.6 C 73 18 121/72 97 Laboratory Results Short CBC 12/12/20 12/13/20 Range/Units 16:16 06:52 WBC 6.79 5.41 (4.8-10.8) K/uL Hgb 12.2 11.8 L (12.0-16.0) g/dL Hct 37.5 36.3 L (37-47) % Plt Count 229 208 (130-400) K/uL BMP 12/12/20 12/13/20 16:16 06:52 Sodium 142 142 Potassium 3.9 3.7 Chloride 109 H 108 H Carbon Dioxide 29 29 BUN 21 H 23 H Creatinine 0.73 0.59 L Glucose 89 87 Calcium 8.9 8.3 L Cardiac Enzymes 12/12/20 Range/Units 16:16 Troponin I 0.017 (0-0.045) ng/ml Liver Function 12/12/20 Range/Units 16:16 Total Bilirubin 0.4 (0.2-1) mg/dl AST 20 (15-37) U/L ALT 33 (12-78) U/L Alkaline Phosphatase 136 H (45-117) U/L Albumin 3.4 (3.4-5.0) gm/dl Urine 12/12/20 Range/Units 15:50 Urine Color Dark Yellow Urine Appearance Clear (Clear) Urine pH 6.0 (4.5-7.5) Ur Specific [place] 1.019 (1.000-1.030) Urine Protein Negative (Negative) Urine Glucose (UA) Negative (Negative)
--- NOTE | 2020-12-13 16:44 | Electrocardiogram Report ---
Test Reason : Blood Pressure : / mmHG Vent. Rate : 069 BPM Atrial Rate : 069 BPM P-R Int : 150 ms QRS Dur : 088 ms QT Int : 418 ms P-R-T Axes : 088 069 072 degrees QTc Int : 447 ms Normal sinus rhythm Nonspecific ST abnormality Abnormal ECG When compared with ECG of 10-JUN-2020 14:59, No significant change was found Confirmed by Bob Leyva ([id number]) on 12/13/2020 4:44:47 PM Referred By: REFERRED SELF Confirmed By:Molina Leyva
[2020-12-13] MEDS: BIMATOPROST 0.01% OP SOLN 2.5 ML BTL OPB SCH (19:44)
[2020-12-13] MEDS: TIMOLOL MALEATE 0.5% OP SOLN 5 ML BTL OPL SCH (19:44)
[2020-12-13] MEDS: GABAPENTIN 100 MG CAP PO SCH (19:45)
[2020-12-14] MEDS: LEVOTHYROXINE SODIUM 75 MCG TABLET PO SCH (05:28)
[2020-12-14 07:32] LABS: Hematocrit (blood only) 38.1 % (37-47); Hemoglobin 12.7 g/dL (12.0-16.0); Mean Corpuscular Hemoglobin 30.5 pg (25-34); Mean Corpuscular Hgb Conc 33.3 g/dL (32-36); Mean Corpuscular Volume 91.4 fL (80-100); Mean Platelet Volume 9.9 fL (7.4-10.4); Platelet Count 230 K/uL (130-400); RDW Coefficient of Variation 14.2 % (11.5-14.5); RDW Standard Deviation 47.4 fL (36.4-46.3); Red Blood Count 4.17 M/uL (4.2-5.4); White Blood Count 5.41 K/uL (4.8-10.8)
[2020-12-14 07:51] VITALS: TEMP 97.3
[2020-12-14 07:59] LABS: BUN Creatinine Ratio 36.3 (10-20); Creatinine Clr Calc Pharmacy 43.6 ml/min; Est GFR (African American) 92.5; Est GFR (Non-African American) 79.8; Potassium 3.9 mmol/L (3.5-5.1)
[2020-12-14] MEDS: PANTOprazole 40 MG TAB PO SCH (08:51)
[2020-12-14] MEDS: CYANOCOBALAMIN 500 MCG TABLET (VITAMIN B-12) PO SCH (08:51)
[2020-12-14] MEDS: CHOLECALCIFEROL 1,000 UNITS 25 MCG TAB PO SCH (08:52)
[2020-12-14] MEDS: FOLIC ACID 1 MG TAB PO SCH (08:52)
[2020-12-14] MEDS: ATORVASTATIN 40 MG TAB PO SCH (08:52)
[2020-12-14] MEDS: ASPIRIN 81 MG ECTAB PO SCH (08:52)
[2020-12-14] MEDS: APIXABAN 2.5 MG TAB PO SCH (08:53)
--- NOTE | 2020-12-14 09:05 | Psychiatric Consultation ---
Date of Consultation December 14, 2020 Impression / Recommendations Impression Dr. Garo Lentz was directly involved in review and discussion of the patient's case and participated in medical decision making regarding treatment recommendations. RECOMMENDATIONS: 12/14/20 - Psychiatric consultation requested by our hospitalist team to evaluate the patient for visual hallucinations reportedly contributing to anxious distress in the setting of documented history of Hay Bonnet Syndrome. - Pt admits that these visual hallucinations began ~1 year ago and initially were not disturbing to her. Within the last week, they have contributed to increased anxiety. Pt admits that she knows the hallucinations of people in her home are not real, but states that in the moment they seem very convincing. Agree with neurology that it is uncertain that an antipsychotic medication would target the hallucinations directly, but there are medication options that could be considered to target the anxious distress surrounding the hallucinations. Some of these options were discussed; however, patient is declining to start any of these medications until she is able to review her options with her neurologist. - Some considerations to target the anxious distress include: - as needed low-dose benzodiazepine (risks: patient's advanced age, respiratory depression, already at increased risk of falls related to age and vision loss) - low-dose antipsychotic medication such as quetiapine or olanzapine (risks: patient's advanced age, metabolic risk factors, although no formal diagnosis of dementia there is risk of Black Box warning related to increased risk of mortality when used in elderly with dementia) - initiation of an SSRI as a daily treatment option to target underlying anxiety symptoms - Pt could certainly be referred for outpatient psychiatric services for further evaluation and medication management. We will fax copies of this psychiatric consultation to patient's PCP and neurologist to allow for coordination of care. - Please reach out to our service with any additional questions or updates. (1) Hallucinations: - Visual hallucinations likely in the setting of documented history of Hay Bonnet Syndrome Psych History Identifying Data 85-year-old female admitted medically on 12/12/2020 after presenting to the ED with reports of visual hallucinations and left arm numbness. Pt was diagnosed with a recent TIA. Psychiatric consultation was requested by our hospitalist service to evaluate the patient for visual hallucinations in the setting of reported diagnosis of Hay Bonnet Syndrome, reportedly contributing to anxious distress. Chief Complaint "I am fair. Thank you." History of Present Illness Alexa Johnson is an 85-year-old female admitted medically on 12/12/2020 after presenting to the ED with complaints of left arm numbness/weakness for two days, related to an incident where patient reportedly had slurred speech in addition to previous symptoms for approximately 5 minutes before symptoms improved. Pt is presumed to have had a TIA. She also reported worsening visual hallucinations for the past week. Pt has known visual impairment, with suggested historical diagnosis of Hay Bonnet Syndrome. Psychiatric consultation was requested to evaluate the patient for visual hallucinations occasionally contributing to anxious distress. Pt is cooperative with psychiatric assessment and shares the numerous medical concerns she has experienced within the past few years. Pt is rather focused on her vision deficits and the numerous insults that have led to her current level of impairment. Pt states that she experienced what was believed to be a TIA on 12/10, but states "the hallucinations were why I came to the hospital." Pt admits that the visual hallucinations she has been experiencing have been worse in the last week, but patient states they have been intermittent for "roughly a year." Pt admits that she initially did not want to report the hallucinations due to fearing that "people would think I was crazy." She denies any prior psychiatric history. Pt does state "On Thursday (12/08), there were about 50 people in my house. The were building things and I felt like I was trapped." Pt simultaneously reports that she believes the people are rearranging her furniture, but then states multiple times during our interview that she knows the visions are "not real." Pt admits that the level of distress she has been experiencing has been more significant this past week. Pt was informed of the suspected cause of her hallucinations, likely a result of Hay Bonnet Syndrome related to her vision loss. Pt does state that she feels comforted to know that there is a likely medical explanation for her experiences. We discussed that it is not clear that medications could directly eliminate the hallucinations, but that there are options that could target the anxiety surrounding her experience. Pt was provided with possible recommendations. She initially said she was willing for something to reduce her level of distress, but then repeated numerous times that she is wishing to review the options with her neurologist before starting something. Pt was informed that the neurology service has also recommended medications to target her anxiety and that it seemed our services agreed that interventions were appropriate. The patient, however, continued to report a desire to follow-up on this topic during her next outpatient appointment with neurology and declined several offers to initiation medication in the interim. Pt denied any acute safety concerns and states that outside of the context of the hallucinations her anxiety and mood have been stable. Pt denied additional needs or concerns from our service at this time. Past Psychiatric History Previous Psych History: Pt denies any previous psychiatric history. Admits that she has been experiencing only visual hallucinations for roughly a year now, but did not want to report them as "I thought people would think I was crazy." Previous Psych Admissions: Denies History of Previous Suicide Attempt: No Past Medication Trials: Denies Allergies Allergy/AdvReac Type Severity Reaction Status Date / Time tetanus toxoid, adsorbed Allergy Mild SWELLING Verified 12/12/20 18:08 AND REDNESS sulfamethoxazole AdvReac Dizziness Verified 12/12/20 18:08 [From Bactrim] trimethoprim [From Bactrim] AdvReac Dizziness Verified 12/12/20 18:08 Home Medications Medication Instructions Recorded Confirmed Type cholecalciferol (vitamin D3) 1,000 unit PO QAM #0 03/21/17 12/12/20 History folic acid 1 mg PO QAM #0 03/21/17 12/12/20 History aspirin 81 mg PO QAM #0 10/08/17 12/12/20 History atorvastatin [Lipitor] 20 mg PO QAM #0 tab 02/11/18 12/12/20 History omeprazole 20 mg PO QAM #0 02/11/18 12/12/20 History Eliquis 2.5 mg PO BID #0 tab 03/29/18 12/12/20 History cyanocobalamin (vitamin B-12) 2,000 mcg PO QAM #0 03/29/18 12/12/20 History Lumigan 1 drp OPB HS 10/11/18 12/12/20 History gabapentin 200 mg PO HS #60 cap 10/15/18 12/12/20 Rx levothyroxine [Synthroid] 75 mcg PO QAM 03/26/19 12/12/20 History acetaminophen 500 mg PO Q12H PRN 12/12/20 12/12/20 History psyllium [Metamucil Smooth Texture See Rx Instructions .ROUTE .COMPLEX 12/12/20 12/12/20 History S/F] timolol maleate 1 drp OPL PM 12/12/20 12/12/20 History Personal History Living Arrangements: Home (with adult daughter living close by) Highest Grade Completed: Vocational Training 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 ) Marital Status: Number Of Children: 4 adult children - 2 daughters; 2 sons Beliefs That Will Affect Care: None Patient History Medical History Acute confusion Atrial fibrillation Atrial fibrillation with RVR Central retinal vein occlusion of right eye Dyslipidemia History of breast cancer "intraductal carcinoma left breast, s/p lumpectomy" History of osteoporosis History of pulmonary embolism HTN (hypertension) Hx of MTHFR mutation LUE weakness Numbness of left hand Papillary carcinoma of thyroid SBO (small bowel obstruction) Small bowel obstruction UGIB (upper gastrointestinal bleed) Uterine prolapse UTI (urinary tract infection) Surgical History H/O oophorectomy History of bladder surgery History of cataract surgery History of hysterectomy S/P exploratory laparotomy lysis of adhesions Status post partial mastectomy "left breast, DCIS" Family History Father Stroke Hypertension Mother Heart disease Social History Smoking Status: Never smoker Second Hand Exposure: No; Hx Alcohol Use: Yes Hx Substance Use: No Preferred Language: Bulgarian Communication Ability: Effective Visual Impairment: Limited Hearing Ability: Normal Specialty Molder Required: No Beliefs That Will Affect Care: None marital status: / Current Living Situation: Alone Current Living Situation Comment: daughter lives close current occupational status: retired Other Information That Helps Us Care for You: No Feels Safe at Home: Yes Assistive Devices: Cane, Glasses and Walker Physical Exam Psychiatric: Orientation: alert, oriented x 3 and cooperative Apperance: appropriately dressed, appropriately groomed and appeared stated age Eye Contact: + poor eye contact pt is visually impaired, unable to maintain eye contact Motor Behavior: no abnormal motor movements (observed while sitting in bedside chair) Speech: normal rate/rhythm/volume of speech Affect: + anxious affect (mildly so) Mood: + anxious mood; no depressed mood Thought Process: goal directed thought process and thought association intact Thought Content: no hopelessness Pt admits that she is aware the visual hallucinations are "not real", but simultaneously verbalizes statements that suggest she does believe the people are rearranging furniture or watching her in her home. Suicidal Thoughts: denies suicidal thoughts Homicidal Thoughts: denies homicidal thoughts Hallucinations: no auditory hallucinations and no visual hallucinations denying current hallucinations, but does admit to intermittent visual hallucinations of people - especially when at home Cognition: recent memory grossly intact, attention grossly intact and language grossly intact Estimated Intelligence: consistent with education level Insight: + fair insight Judgement: + fair judgement Vital Signs (Past 24 Hours): Last Vital Signs Temp 36.3 C L 12/14/20 07:51 Pulse 63 12/14/20 07:51 Resp 18 12/14/20 07:51 BP 170/81 H 12/14/20 07:51 Pulse Ox 97 12/14/20 07:51 Review of Systems Constitutional: denied HEENT: significant visual impairments, worse in right eye Cardiovascular: denied Respiratory: denied Gastrointestinal: denied Neurological: denied Psychiatric: denies symptoms other than stated above Total of at least 10 systems reviewed, pertinent positives as above and in HPI. Results & Data ([facility]) Medications Administered Apixaban (Apixaban 2.5 Mg Tab) 2.5 mg PO BID [facility] Stop: 01/12/21 08:59 Last Admin: 12/14/20 08:53 Dose: 2.5 mg Documented by: [id number] Admin: 12/13/20 19:44 Dose: 2.5 mg Documented by: [id number] Admin: 12/13/20 07:55 Dose: 2.5 mg Documented by: [id number] Aspirin (Aspirin 81 Mg Ectab) 81 mg PO [facility] Stop: 01/12/21 08:59 Last Admin: 12/14/20 08:52 Dose: 81 mg Documented by: [id number] Admin: 12/13/20 07:53 Dose: 81 mg Documented by: [id number] Atorvastatin Calcium ([facility]vastatin 40 Mg Tab) [facility] Stop: 01/12/21 08:59 Last Admin: 12/14/20 08:52 Dose: 40 mg Documented by: [id number] Admin: 12/13/20 07:54 Dose: 40 mg Documented by: [id number] Bimatoprost (Bimatoprost 0.01% Op Soln 2.5 Ml Btl) 1 drops OPB HS [facility] Stop: 01/11/21 20:59 Last Admin: 12/13/20 19:44 Dose: 1 drops Documented by: [id number] Admin: 12/12/20 23:01 Dose: 1 drops Documented by: [id number] Cyanocobalamin (Cyanocobalamin 500 Mcg Tablet (Vitamin B-12)) 2,000 mcg PO [facility] Stop: 01/12/21 08:59 Last Admin: 12/14/20 08:51 Dose: 2,000 mcg Documented by: [id number] Admin: 12/13/20 07:53 Dose: 2,000 mcg Documented by: [id number] Folic Acid (Folic Acid 1 Mg Tab) 1 mg PO [facility] Stop: 01/12/21 08:59 Last Admin: 12/14/20 08:52 Dose: 1 mg Documented by: [id number] Admin: 12/13/20 07:54 Dose: 1 mg Documented by: [id number] Gabapentin (Gabapentin 100 Mg Cap) 200 mg PO [facility] Stop: 01/11/21 20:59 Last Admin: 12/13/20 19:45 Dose: 200 mg Documented by: [id number] Admin: 12/12/20 23:03 Dose: 200 mg Documented by: [id number] Levothyroxine Sodium (Levothyroxine Sodium 75 Mcg Tablet) [facility]: 01/12/21 06:29 Last Admin: 12/14/20 05:28 Dose: 75 mcg Documented by: [id number] Admin: 12/13/20 05:37 Dose: 75 mcg Documented by: [id number] Pantoprazole Sodium (Pantoprazole 40 Mg Tab) 40 mg PO [facility]; Protocol Stop: 01/12/21 08:59 Last Admin: 12/14/20 08:51 Dose: 40 mg Documented by: [id number] Admin: 12/13/20 07:53 Dose: 40 mg Documented by: [id number] Timolol Maleate (Timolol Maleate 0.5% Op Soln 5 Ml Btl) 1 drops OPL PM [facility] Stop: 01/11/21 20:59 Last Admin: 12/13/20 19:44 Dose: Not Given Documented by: [id number] Admin: 12/12/20 23:01 Dose: Not Given Documented by: [id number] Vitamin D (Cholecalciferol 1,000 Units 25 Mcg Tab) 1,000 units PO [facility] Stop: 01/12/21 08:59 Last Admin: 12/14/20 08:52 Dose: 1,000 units Documented by: [id number] Admin: 12/13/20 07:53 Dose: 1,000 units Documented by: [id number] Coding Level of Care Code 46379 [facility] Intl Hosp Care Lvl 2 Diagnoses Hallucinations R44.3
[2020-12-14 11:08] VITALS: O2SAT 98
--- NOTE | 2020-12-14 11:40 | Hospitalist Progress Note ---
Date of Service December 14, 2020 Assessment & Plan (1) Hallucinations: (2) Left arm weakness: Patient is an 85 yr female with H/O TIA, visual impairment right eye, central retinal vein occlusion, PAF on Eliquis, papillary thyroid carcinoma, dyslipidemia, MTHFR deficiency presented to ER with c/o episode of left arm weakness 2 days ago and visual hallucinations x 1 week Stroke like symptoms ? TIA--Less likely H/O Hay Bonnet Syndrome, Left central retinal vein occlusion, right vitreal hemorrhage -MRI Brain:Right globe fluid fluid level consistent with a vitreous hemorrhage. Ophthalmologic consultation recommended. Otherwise no acute intracranial findings. No evidence of intracranial mass on this noncontrast study. No evidence of acute or subacute infarction. Foci of increased T2 and FLAIR signal within the white matter likely on a small vessel ischemic basis - CT Head:No acute intracranial abnormality. Right-sided vitreous hemorrhage. Ophthalmologic consultation is needed. -Neck CTA:Unremarkable CTA of the neck. No stenosis. No dissection. -Head CTA:No central vessel occlusion. 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 Discussed the risks, side effects, benefits of quetiapine. Patient and her daughter were okay with initiating quetiapine. They understand and agree with current management. PAF Continue Eliquis Off metoprolol secondary to h/o hypotension Dyslipidemia Continue statin H/O retinal vein occlusion CT Head: Right-sided vitreous hemorrhage Continue ophthalmology/retinal specialist follow up DVT Px On Eliquis Code Status DNR/DNI (3) Stroke-like symptoms: Admission and Anticipated Discharge Date Admission Date: December 12, 2020 Subjective Patient is seen and examined at bedside No new complaints No recurrence of arm weakness Chronic right eye blindness, left blurry vision and visual hallucinations Discussed with Neurology and Psychiatry Denies chest pain, dyspnea, dizziness, nausea, abdominal pain Updated patient's family over phone Review of Systems Review of Systems: All systems reviewed & are unremarkable except as noted in HPI & below Physical Exam Physical Exam: Physical Exam: Vitals signs as noted above General Appearance:Thin, Frail, no apparent distress Head: normocephalic, Atraumatic Eyes: normal inspection, EOMI, +Chronic R eye blindness, Left eye blurry Neck: supple, Trachea midline Respiratory/Chest: Normal breath sounds, CTA Cardiovascular: S1, S2, No murmur Abdomen/GI:Soft, Non tender, Bowel sounds present Extremities/Musculoskelatal:normal inspection, no edema Neurologic/Psych:AAOX3, grossly no focal neurological deficits Skin: normal color, warm Results & Data Results & Data ([facility]) Vital Signs (Past 12 Hours) Vital Signs Temp Pulse Pulse Resp BP Pulse Ox 12/14/20 11:08 36.3 C L 65 18 126/68 98 12/14/20 07:51 36.3 C L 63 18 170/81 H 97 12/14/20 03:00 35.8 C L 68 20 158/88 H 94 12/13/20 23:48 71 Laboratory Results Short CBC 12/14/20 Range/Units 06:29 WBC 5.41 (4.8-10.8) K/uL Hgb 12.7 (12.0-16.0) g/dL Hct 38.1 (37-47) % Plt Count 230 (130-400) K/uL BMP 12/14/20 06:29 Sodium 140 Potassium 3.9 Chloride 107 Carbon Dioxide 28 BUN 24 H Creatinine 0.65 Glucose 84 Calcium 9.0
[2020-12-14 12:57] VITALS: BP 144/71
--- NOTE | 2020-12-14 14:22 | Discharge Summary ---
Date of Service December 14, 2020 Admission HPI Per Admitting Provider Pt is 85 y/o F with PMH TIA, visual impairment right eye, central retinal vein occlusion, PAF on Eliquis, papillary thyroid carcinoma, dyslipidemia, MTHFR deficiency presented to ER with c/o episode of left arm weakness 2 days ago and visual hallucinations x 1 week. States 2 days ago had episode of left arm numbness and weakness and she felt she had slurred speech. Symptoms lasted approx 5 minutes and resolved. Pt reports h/o similar episodes in past being diagnosed with TIA. Denies any GUDINO, dizziness, lower extremity weakness, facial paresthesias, noted facial drooping. Denies any current extremity weakness. Uses can or pushes a "cart" around. Denies recent falls. Pt lives alone with daughter living near by. Reports has aide coming in 3 days a week. Pt reports able to do her own medication and denies any known med mix ups. Reports visual hallucinations x 1 week. Reports intermittent episodes of seeing people in her house and those people are re-arranging objects so she cannot find them. Denies hearing any voices. States has had these in past however has never told anyone about it. Denies suicidal or homicidal ideations. Denies any current visual hallucinations. Pt reports chronic visual loss with right eye worse and feels visual loss worsening for past 1-2 weeks, however she is not able to further explain. She follows with outpatient ophthalmology and retinal specialist. Denies any new medications. Denies any other OTC/herbal med use. Denies fever/chills, diaphoresis, N/V/D/C, syncope, neck pain, CP, SOB, orthopnea, palpitations, cough, sore throat, choking, otalgia, rhinorrhea, abdominal pain, extremity edema, rashes, urinary symptoms. Admission Exam Per Admitting Provider Physical Exam Physical Exam: General: no distress, thin Head: normocephalic, atraumatic Eyes: PERRL, pt unable to distinguish fingers in right eye visual field and has some inconsistency in left eye; conjunctiva non-injected, anicteric ENT: normal inspection external ears, nose, mucous membranes moist Neck: supple, trachea midline Lungs: clear, no respiratory distress, no wheezing/rhonchi/rales CV: RRR, no murmur, no pretibial edema Abd: normal BS, soft, non-tender Ext: no cyanosis, no calf tenderness Neuro: A&O x 3, normal affect, facial sensation is intact and symmetric, face is strong and symmetric, hearing grossly intact, no dysarthria, shoulder shrug intact, tongue is midline, normal movement, no fasciculations,no apparent unilateral extremity weakness Skin: warm, dry Principal Diagnosis Hay Bonnet Syndrome Stroke like symptoms Discharge Data Allergies Allergy/AdvReac Type Severity Reaction Status Date / Time tetanus toxoid, adsorbed Allergy Mild SWELLING Verified 12/12/20 18:08 AND REDNESS sulfamethoxazole AdvReac Dizziness Verified 12/12/20 18:08 [From Bactrim] trimethoprim [From Bactrim] AdvReac Dizziness Verified 12/12/20 18:08 Consultations 12/12/20 17:38 ED Decision to Admit Stat 12/12/20 19:46 Consult Case Management - Discharge Planning Routine Consult Neurology Routine 12/13/20 16:14 Consult Psychiatry Routine Procedures Performed MRI Brain:Right globe fluid fluid level consistent with a vitreous hemorrhage. Ophthalmologic consultation recommended. Otherwise no acute intracranial findings. No evidence of intracranial mass on this noncontrast study. No evidence of acute or subacute infarction. Foci of increased T2 and FLAIR signal within the white matter likely on a small vessel ischemic basis CT Head:No acute intracranial abnormality. Right-sided vitreous hemorrhage. Ophthalmologic consultation is needed. Neck CTA:Unremarkable CTA of the neck. No stenosis. No dissection. Head CTA:No central vessel occlusion. 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 Ordered Studies 12/12/20 16:10 CT head/brain wo con Stat 12/12/20 19:54 MR brain wo con Urgent Hospital Course (1) Hallucinations: (2) Left arm weakness: Patient is an 85 yr female with H/O TIA, visual impairment right eye, central retinal vein occlusion, PAF on Eliquis, papillary thyroid carcinoma, dyslipidemia, MTHFR deficiency presented to ER with c/o episode of left arm weakness 2 days ago and visual hallucinations x 1 week Stroke like symptoms ? TIA--Less likely H/O Hay Bonnet Syndrome, Left central retinal vein occlusion, right vitreal hemorrhage -MRI Brain:Right globe fluid fluid level consistent with a vitreous hemorrhage. Ophthalmologic consultation recommended. Otherwise no acute intracranial findings. No evidence of intracranial mass on this noncontrast study. No evidence of acute or subacute infarction. Foci of increased T2 and FLAIR signal within the white matter likely on a small vessel ischemic basis - CT Head:No acute intracranial abnormality. Right-sided vitreous hemorrhage. Ophthalmologic consultation is needed. -Neck CTA:Unremarkable CTA of the neck. No stenosis. No dissection. -Head CTA:No central vessel occlusion. 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 Discussed the risks, side effects, benefits of quetiapine. Patient and her daughter were okay with initiating quetiapine. They understand and agree with current management. PAF Continue Eliquis Off metoprolol secondary to h/o hypotension Dyslipidemia Continue statin H/O retinal vein occlusion CT Head: Right-sided vitreous hemorrhage Continue ophthalmology/retinal specialist follow up DVT Px On Eliquis Code Status DNR/DNI (3) Stroke-like symptoms: Total Time Total Time Spent Total Time Spent (In Minutes): 45 minutes Total Time Includes: Examination of the Patient, Discharge Planning, Medication Reconciliation, Communication With Other Providers and Other Discharge Plan Discharge Items Patient Disposition: Home - Home Health Services Reason For Visit: HALLUCINATIONS Discharge Diagnosis: Hay Bonnet Syndrome Stroke like symptoms Activity: Per Instructions section Exercise/Sports: Wait until after follow-up appointment Non-emergency contact: Primary Care Provider, Neurologist and Barrel Cooper Call non-emergency contact if: you have any medication questions, your symptoms worsen, your pain is not controlled, your pain is worsening, your pain is unusual for you, your pain is concerning for you and you have a fever Follow-up/Referrals: Neo Plascencia MD [Primary Care Provider] - 12/18/20 11:20 am (Date & Time 12/18/2020 11:20 AM Provider Ignacia Villatoro MD Department General Internal Medicine [facility] ) Corby Rehman MD [Physician] - 12/14/20 2:15 pm (Dr. Corby Rehman [address], [place] [address] ) Basil Holm M.D. [Staff Physician] - 12/17/20 10:00 am (Dr. Nunez [address] [facility] , [place] [address] ) Diet: Heart Healthy Addtl Attending Provider Instructions: Follow-up with your primary care physician Dr. Plascencia on 12/18/2020 11:20 AM as scheduled Follow-up with your show horse driver Dr. Rehman on Dec 14, 2020 at 2:15pm Follow up with your show horse driver on December 17, 2020 at 10:00AM Follow-up with your neurologist Dr. Caro as advised--Office will call you with appointment Follow-up with your psychiatrist as needed for further adjustment of your medications. Seek immediate medical attention if your symptoms reoccur or worsen Risk Factors for Stroke: You can reduce your chances of stroke by working with your medical provider to adopt a healthy lifestyle. Some specific ways to lower your chance of stroke are: * If you are a smoker, now is the time to stop smoking cigarettes * If you are diabetic, improve the control of your blood sugars * Avoid excessive amounts of alcohol * Control high blood pressure * Lose weight if you are overweight * Be sure to lead an active lifestyle * Eat a healthy diet low in salt, cholesterol and fat You should know about other risk factors for stroke that you are unable to control. These include: * Age 55 years or older * Male gender * Certain racial groups: , or / * Family History of Stroke, Mini stroke or Heart Attack * Sickle Cell Disease Follow Up: It is important for you to keep your follow up appointments with your medical provider. Who to Call and When: Medical Emergencies: Call 911 immediately if you experience any of the following warning signs and symptoms of Stroke: * Sudden numbness or weakness of the face, arm or leg, especially on one side of the body * Sudden confusion, trouble speaking or understanding * Sudden trouble seeing in one or both eyes * Sudden trouble walking, dizziness, loss of balance or coordination * Sudden severe headache with no cause Do not delay calling 911 if you experience any warning signs or symptoms of a s troke. Delay in seeking medical attention may affect what treatments can be given to you. . Pending Studies at Discharge: No Stand-Alone Forms: My [facility], Smoking Cessation Medications and DC Order Prescriptions: New quetiapine 25 mg Tablet 12.5 mg PO HS Qty: 30 RF: 0 Continued folic acid 1 mg Tablet 1 mg PO QAM Qty: 0 RF: 0 cholecalciferol (vitamin D3) 1,000 unit Capsule 1,000 unit PO QAM Qty: 0 RF: 0 aspirin 81 mg Tablet,Delayed Release (Dr/Ec) 81 mg PO QAM Qty: 0 RF: 0 atorvastatin [Lipitor] 20 mg Tablet 20 mg PO QAM Qty: 0 RF: 0 omeprazole 20 mg Capsule,Delayed Release(Dr/Ec) 20 mg PO QAM Qty: 0 RF: 0 Eliquis 2.5 mg Tablet 2.5 mg PO BID Qty: 0 RF: 0 cyanocobalamin (vitamin B-12) 1,000 mcg Capsule 2,000 mcg PO QAM Qty: 0 RF: 0 Lumigan 0.01 % Drops 1 drp OPB HS RF: 0 acetaminophen 500 mg Tablet 500 mg PO Q12H PRN (Reason: Pain, Severe) RF: 0 psyllium Powder See Rx Instructions .ROUTE .COMPLEX RF: 0 timolol maleate 0.5 % drops 1 drp OPL PM RF: 0 gabapentin 100 mg capsule 200 mg PO HS Qty: 60 RF: 5 levothyroxine [Synthroid] 75 mcg tablet 75 mcg PO QAM RF: 0 Discharge Orders: Discharge Order (Routine); Ordered 12/14/20 Ordered By: Iain Dorsey Admission Data Admit Date/Time: 12/12/20 17:53 Attending Provider: Iain Dorsey Admit Provider: Loli Summers Primary Care Provider: Neo Plascencia Other Providers: Loli Summers ; Maximo Caro ; [place] ; Christina Barrios Other Interventions: Discharge Summary Assessment (RN) Last Done: 12/14/20 12:56
[2020-12-14 14:47] VITALS: PULSE 68
[2020-12-14] MEDS ORDERED: QUEtiapine FUMARATE 25 MG TABLET PO SCH (21:00)
== END 2020-12-14 14:09 | disposition home or self-care (01) ==
LOC: ED 15:24 → 2W 17:53 → SUATTDRO 17:53 → INTOOBSV 17:53 → 2W 18:45

== ENCOUNTER 2021-04-07 21:07 | Inpatient (IN) ==
[2021-04-07] MEDS ORDERED: SODIUM CHLORIDE 0.9% 500 ML IV ONE (22:25)
[2021-04-07 22:53] LABS: Basophils # (auto) 0.01 K/uL (0-0.2); Basophils % (auto) 0.2 %; Eosinophils # (auto) 0.04 K/uL (0-0.5); Eosinophils % (auto) 0.7 %; Hematocrit (blood only) 40.9 % (37-47); Hemoglobin 13.3 g/dL (12.0-16.0); Immature Granulocytes # (auto) 0.01 K/uL (0.00-0.02); Immature Granulocytes % (auto) 0.2 %; Lymphocytes % (auto) 15.6 %; Mean Corpuscular Hemoglobin 31.3 pg (25-34); Mean Corpuscular Hgb Conc 32.5 g/dL (32-36); Mean Corpuscular Volume 96.2 fL (80-100); Mean Platelet Volume 9.7 fL (7.4-10.4); Monocytes # (auto) 0.71 K/uL (0.11-0.59); Monocytes % (auto) 12.3 %; Platelet Count 224 K/uL (130-400); RDW Coefficient of Variation 14.5 % (11.5-14.5); RDW Standard Deviation 51.7 fL (36.4-46.3); Red Blood Count 4.25 M/uL (4.2-5.4); White Blood Count 5.77 K/uL (4.8-10.8)
[2021-04-07 22:55] LABS: Appearance Urine Clear (Clear); Bacteria Urine Automated Negative (Negative); Blood Urine 2+ (Negative); Color Urine Dark Yellow; Epithelial Cell Urine Auto >30 /lpf (0-5); Glucose Urine UA Negative (Negative); Ketones Urine Trace (Negative); Leukocyte Esterase Urine 1+ (Negative); Nitrite Urine Negative (Negative); Protein Urine Negative (Negative); Specific Gravity Urine 1.027 (1.000-1.030); Urobilinogen Urine Negative (Negative)
[2021-04-07 23:01] LABS: Bilirubin Urine 1+ (Negative)
[2021-04-07 23:05] LABS: iSTAT Creatinine 0.7 mg/dl (0.6-1.3); iSTAT Hemoglobin 13.9 g/dl (12.0-16.0); iSTAT Ionized Calcium 1.26 mmol/l (1.12-1.32)
[2021-04-07 23:06] LABS: Prothrombin Time 10.3 Seconds (9.0-12.0)
[2021-04-07 23:10] LABS: Alanine Aminotransferase 32 U/L (12-78); Albumin Level 3.7 gm/dl (3.4-5.0); Aspartate Aminotransferase 19 U/L (15-37); BUN Creatinine Ratio 33.9 (10-20); Blood Urea Nitrogen 25 mg/dl (7-18); Calcium 8.8 mg/dl (8.5-10.1); Carbon Dioxide 31 mmol/L (21-32); Chloride 104 mmol/L (98-107); Creatinine Clr Calc Pharmacy 38.5 ml/min; Est GFR (African American) 84.4 ml/min; Est GFR (Non-African American) 72.8 ml/min; Glucose 103 mg/dl (70-99); Potassium 3.9 mmol/L (3.5-5.1); Sodium 140 mmol/L (136-145)
[2021-04-07 23:14] LABS: Alkaline Phosphatase 134 U/L (45-117); Bilirubin,Total 0.4 mg/dl (0.2-1); Globulin 3.9 gm/dl (2.5-4.0); Total Protein 7.6 gm/dl (6.4-8.2); Troponin I < 0.015 ng/ml (0-0.045)
[2021-04-07] MEDS ORDERED: OPTIRAY 320 125ml IV ONE (23:20)
--- NOTE | 2021-04-08 00:13 | Emergency Department Note ---
History of Present Illness General Chief complaint: Confusion Stated complaint: CONFUSION Time Seen by Provider: 04/07/21 22:00 History of Present Illness This 85-year-old with a history of TIAs presents to the ER complaining of confusion today Location: Generalized Quality: Confused Severity: Moderate Duration: This afternoon Timing: This afternoon Context: Family was concerned and brought her in Modifying factors: better with nothing; worse with nothing Per the daughter, the patient was confused and did not know her name or where she was. Daughter states she is now currently improving. The patient states she feels somewhat confused and is concerned she might have a urine infection. She states when she gets confused usually it is her urine. Patient denies chest pain, dyspnea, abdominal pain, vomiting, diarrhea. She states she is tolerating p.o. fluids and food. Patient has a history of TIAs. Home Medications Medication Instructions Recorded Confirmed Type cholecalciferol (vitamin D3) 1,000 unit PO QAM #0 03/21/17 04/07/21 History folic acid 1 mg PO QAM #0 03/21/17 04/07/21 History aspirin 81 mg PO QAM #0 10/08/17 04/07/21 History atorvastatin [Lipitor] 20 mg PO QAM #0 tab 02/11/18 04/07/21 History omeprazole 20 mg PO QAM #0 02/11/18 04/07/21 History Eliquis 2.5 mg PO BID #0 tab 03/29/18 04/07/21 History cyanocobalamin (vitamin B-12) 2,000 mcg PO QAM #0 03/29/18 04/07/21 History Lumigan 1 drp OPB HS 10/11/18 04/07/21 History gabapentin 200 mg PO HS #60 cap 10/15/18 04/07/21 Rx levothyroxine [Synthroid] 75 mcg PO QAM 03/26/19 04/07/21 History acetaminophen 500 mg PO Q12H PRN 12/12/20 04/07/21 History psyllium See Rx Instructions .ROUTE .COMPLEX 12/12/20 04/07/21 History timolol maleate 1 drp OPL PM 12/12/20 04/07/21 History quetiapine 12.5 mg PO HS #30 tab 12/14/20 04/07/21 Rx Allergies Allergy/AdvReac Type Severity Reaction Status Date / Time tetanus toxoid, adsorbed Allergy Mild SWELLING Verified 04/07/21 22:06 AND REDNESS sulfamethoxazole AdvReac Dizziness Verified 04/07/21 22:06 [From Bactrim] trimethoprim [From Bactrim] AdvReac Dizziness Verified 04/07/21 22:06 Past Med/Surg History Medical History Acute confusion Atrial fibrillation Atrial fibrillation with RVR Central retinal vein occlusion of right eye Dyslipidemia History of breast cancer "intraductal carcinoma left breast, s/p lumpectomy" History of osteoporosis History of pulmonary embolism HTN (hypertension) Hx of MTHFR mutation LUE weakness Numbness of left hand Papillary carcinoma of thyroid SBO (small bowel obstruction) Small bowel obstruction UGIB (upper gastrointestinal bleed) Uterine prolapse UTI (urinary tract infection) Surgical History H/O oophorectomy History of bladder surgery History of cataract surgery History of hysterectomy S/P exploratory laparotomy lysis of adhesions Status post partial mastectomy "left breast, DCIS" Family History Father Stroke Hypertension Mother Heart disease Social History Smoking Status: Never smoker Second Hand Exposure: No; Hx Alcohol Use: Yes Hx Substance Use: No Preferred Language: Thai Communication Ability: Effective Visual Impairment: Limited Hearing Ability: Normal Ese Teacher Required: No Beliefs That Will Affect Care: None marital status: / Current Living Situation: Alone Current Living Situation Comment: daughter lives close current occupational status: retired Feels Safe at Home: Yes Assistive Devices: Cane, Glasses and Walker Review of Systems A total of 10 systems reviewed and were otherwise negative Physical Exam Vital Signs Vital Signs - 24 hr 04/07/21 21:10 04/07/21 23:21 04/07/21 23:30 Temperature 36.6 C Temperature Source Temporal Artery Scan Pulse Rate 71 79 68 Respiratory Rate 18 18 17 Respiratory Effort / Characteristics Non-Labored Spontaneous Respiratory Depth Normal Respiratory Pattern Regular Blood Pressure 173/83 H 179/89 H 164/93 H Blood Pressure Mean 113 119 116 Blood Pressure Position Sitting Pulse Oximetry 98 99 Oxygen Delivery Method Room Air Room Air Sepsis Recent Fever Within 48 Hours No Sepsis New/Unexplained Change in Mental Status No Sepsis Action Taken by Nursing No Action Required 04/08/21 00:00 04/08/21 00:30 04/08/21 01:00 Temperature Temperature Source Pulse Rate 64 60 64 Respiratory Rate 18 18 18 Respiratory Effort / Characteristics Respiratory Depth Respiratory Pattern Blood Pressure 159/82 H 163/92 H 173/90 H Blood Pressure Mean 107 115 117 Blood Pressure Position Pulse Oximetry 100 Oxygen Delivery Method Room Air Sepsis Recent Fever Within 48 Hours Sepsis New/Unexplained Change in Mental Status Sepsis Action Taken by Nursing VITALS: Vitals are noted on the nurse's note and reviewed by myself. Vital signs stable. GENERAL: Elderly female somewhat confused but able to follow commands, in no acute distress, nondiaphoretic, well-developed well-nourished. SKIN: The skin was without rashes, erythema, edema, or bruising. There is no tenting of the skin. Capillary reflex less than 2 seconds. HEAD: Normocephalic atraumatic. EARS: External auditory canals clear, tympanic membranes pearly reed without erythema or effusion bilaterally. EYES: Pupils equal round and reactive to light and accommodation. Conjunctivae without injection, sclerae without icterus. Extraocular movements intact. NOSE: Patent, turbinates without inflammation or discharge. No sinus tenderness. MOUTH: Mucous membranes moist. Pharynx without erythema or exudate. Uvula midline. Airway patent. Tongue does not deviate. NECK: Supple without nuchal rigidity. No lymphadenopathy. No thyromegaly. Cervical spine is nontender. No JVD. HEART: Regular rate and rhythm LUNGS: Clear to auscultation bilaterally without wheezes, rales or rhonchi. No retractions or accessory muscle use. ABDOMEN: Positive bowel sounds x 4. Normal tympanic percussion. Soft, nontender, without masses or organomegaly. Romero sign negative. No guarding or rebound tenderness. No CVA tenderness MUSCULOSKELETAL: No muscle atrophy, erythema, or edema noted. NEURO: Patient was alert and oriented to person place and time. Normal sensation to light and sharp touch. No focal neurological deficits. Course Administered Medications Discontinued Medications Sodium Chloride (Nss) 500 mls @ 999 mls/hr IV .Q31M ONE Stop: 04/07/21 22:55 Last Infusion: 04/08/21 00:16 Dose: 0 mls/hr Documented by: [id number] Admin: 04/07/21 23:29 Dose: 999 mls/hr Documented by: [id number] Cefepime HCl (Maxipime) 2,000 mg in 20 mls @ 5 mls/min IV NOW STA; Protocol Stop: 04/08/21 00:46 Last Admin: 04/08/21 01:02 Dose: 5 mls/min Documented by: [id number] Ioversol (Optiray 320 125ml) 125 ml IV ONCE ONE Stop: 04/07/21 23:21 Last Admin: 04/07/21 23:20 Dose: 120 ml Documented by: [id number] Medical Decision Making Medical Records Attestation: I reviewed the patient's medical records. Home Medications Current Medication List: was personally reviewed by me Laboratory Data Attestation: I reviewed the patient's lab results. Result diagrams: 04/07/21 22:42 04/07/21 22:42 Lab Results 04/07/21 04/07/21 04/07/21 Range/Units 22:32 22:42 22:42 WBC 5.77 (4.8-10.8) K/uL RBC 4.25 (4.2-5.4) M/uL Hgb 13.3 (12.0-16.0) g/dL POC Hgb (12.0-16.0) g/dl Hct 40.9 (37-47) % POC Hct (37-47) % MCV 96.2 (80-100) fL MCH 31.3 (25-34) pg MCHC 32.5 (32-36) g/dL RDW Std Deviation 51.7 H (36.4-46.3) fL RDW Coeff of Bassem 14.5 (11.5-14.5) % Plt Count 224 (130-400) K/uL MPV 9.7 (7.4-10.4) fL Immature Gran % (Auto) 0.2 % Neut % (Auto) 71.0 % Lymph % (Auto) 15.6 % [place] % (Auto) 12.3 % Eos % (Auto) 0.7 % Baso % (Auto) 0.2 % Neut # (Auto) 4.10 (1.4-6.5) K/uL Lymph # (Auto) 0.90 L (1.2-3.4) K/uL [place] # (Auto) 0.71 H (0.11-0.59) K/uL Eos # (Auto) 0.04 (0-0.5) K/uL Baso # (Auto) 0.01 (0-0.2) K/uL Immature Gran # (Auto) 0.01 (0.00-0.02) K/uL PT 10.3 (9.0-12.0) Seconds INR 1.0 (0.9-1.1) APTT 26.0 (21.0-31.0) Seconds PTT Ratio 1.0 POC Sodium (135-144) mmol/L Sodium (136-145) mmol/L POC Potassium (3.3-5.0) mmol/L Potassium (3.5-5.1) mmol/L POC Chloride (101-112) mmol/L Chloride (98-107) mmol/L Carbon Dioxide (21-32) mmol/L POC Total CO2 (24-31) mmol/L Anion Gap (3-11) POC Anion Gap (16-25) mmol/L POC BUN (7-18) mg/dl BUN (7-18) mg/dl Creatinine (0.6-1.2) mg/dl POC Creatinine (0.6-1.3) mg/dl Est Cr Clr Drug Dosing ml/min Est GFR ( Amer) ml/min Est GFR (Non-Af Amer) ml/min BUN/Creatinine Ratio (10-20) Glucose (70-99) mg/dl POC Glucose (other) (70-99) mg/dl Lactate (0.4-2.0) mmol/L Calcium (8.5-10.1) mg/dl POC Ioniz Calcium Kamran (1.12-1.32) mmol/l Magnesium (1.8-2.4) mg/dl Total Bilirubin (0.2-1) mg/dl AST (15-37) U/L ALT (12-78) U/L Alkaline Phosphatase (45-117) U/L Troponin I (0-0.045) ng/ml Total Protein (6.4-8.2) gm/dl Albumin (3.4-5.0) gm/dl Globulin (2.5-4.0) gm/dl Albumin/Globulin Ratio (0.9-2) Procalcitonin (0-0.5) ng/ml Urine Color Dark Yellow Urine Appearance Clear (Clear) Urine pH 5.0 (4.5-7.5) Ur Specific [place] 1.027 (1.000-1.030) Urine Protein Negative (Negative) Urine Glucose (UA) Negative (Negative) Urine Ketones Trace H (Negative) Urine Blood 2+ H (Negative) Urine Nitrite Negative (Negative) Urine Bilirubin 1+ H (Negative) Urine Urobilinogen Negative (Negative) Ur Leukocyte Esterase 1+ H (Negative) Urine WBC (Auto) 5-10 H (0-5) /hpf Urine RBC (Auto) 10-30 H (0-4) /hpf U Hyaline Cast (Auto) 10-30 H (0-5) /lpf U Epithel Cells (Auto) >30 H (0-5) /lpf Urine Bacteria (Auto) Negative (Negative) COVID-19 Eval Order SARS-CoV-2 (PCR) (Negative) 04/07/21 04/07/21 04/07/21 Range/Units 22:42 22:42 22:42 WBC (4.8-10.8) K/uL RBC (4.2-5.4) M/uL Hgb (12.0-16.0) g/dL POC Hgb (12.0-16.0) g/dl Hct (37-47) % POC Hct (37-47) % MCV (80-100) fL MCH (25-34) pg MCHC (32-36) g/dL RDW Std Deviation (36.4-46.3) fL RDW Coeff of Bassem (11.5-14.5) % Plt Count (130-400) K/uL MPV (7.4-10.4) fL Immature Gran % (Auto) % Neut % (Auto) % Lymph % (Auto) % [place] % (Auto) % Eos % (Auto) % Baso % (Auto) % Neut # (Auto) (1.4-6.5) K/uL Lymph # (Auto) (1.2-3.4) K/uL [place] # (Auto) (0.11-0.59) K/uL Eos # (Auto) (0-0.5) K/uL Baso # (Auto) (0-0.2) K/uL Immature Gran # (Auto) (0.00-0.02) K/uL PT (9.0-12.0) Seconds INR (0.9-1.1) APTT (21.0-31.0) Seconds PTT Ratio POC Sodium (135-144) mmol/L Sodium 140 (136-145) mmol/L POC Potassium (3.3-5.0) mmol/L Potassium 3.9 (3.5-5.1) mmol/L POC Chloride (101-112) mmol/L Chloride 104 (98-107) mmol/L Carbon Dioxide 31 (21-32) mmol/L POC Total CO2 (24-31) mmol/L Anion Gap 6.0 (3-11) POC Anion Gap (16-25) mmol/L POC BUN (7-18) mg/dl BUN 25 H (7-18) mg/dl Creatinine 0.74 (0.6-1.2) mg/dl POC Creatinine (0.6-1.3) mg/dl Est Cr Clr Drug Dosing 38.5 ml/min Est GFR ( Amer) 84.4 ml/min Est GFR (Non-Af Amer) 72.8 ml/min BUN/Creatinine Ratio 33.9 H (10-20) Glucose 103 H (70-99) mg/dl POC Glucose (other) (70-99) mg/dl Lactate 1.5 (0.4-2.0) mmol/L Calcium 8.8 (8.5-10.1) mg/dl POC Ioniz Calcium Kamran (1.12-1.32) mmol/l Magnesium 2.0 (1.8-2.4) mg/dl Total Bilirubin 0.4 (0.2-1) mg/dl AST 19 (15-37) U/L ALT 32 (12-78) U/L Alkaline Phosphatase 134 H (45-117) U/L Troponin I < 0.015 (0-0.045) ng/ml Total Protein 7.6 (6.4-8.2) gm/dl Albumin 3.7 (3.4-5.0) gm/dl Globulin 3.9 (2.5-4.0) gm/dl Albumin/Globulin Ratio 1.0 (0.9-2) Procalcitonin < 0.05 (0-0.5) ng/ml Urine Color Urine Appearance (Clear) Urine pH (4.5-7.5) Ur Specific [place] (1.000-1.030) Urine Protein (Negative) Urine Glucose (UA) (Negative) Urine Ketones (Negative) Urine Blood (Negative) Urine Nitrite (Negative) Urine Bilirubin (Negative) Urine Urobilinogen (Negative) Ur Leukocyte Esterase (Negative) Urine WBC (Auto) (0-5) /hpf Urine RBC (Auto) (0-4) /hpf U Hyaline Cast (Auto) (0-5) /lpf U Epithel Cells (Auto) (0-5) /lpf Urine Bacteria (Auto) (Negative) COVID-19 Eval Order SARS-CoV-2 (PCR) (Negative) 04/07/21 04/07/21 04/07/21 Range/Units 22:46 22:46 22:51 WBC (4.8-10.8) K/uL RBC (4.2-5.4) M/uL Hgb (12.0-16.0) g/dL POC Hgb 13.9 (12.0-16.0) g/dl Hct (37-47) % POC Hct 41 (37-47) % MCV (80-100) fL MCH (25-34) pg MCHC (32-36) g/dL RDW Std Deviation (36.4-46.3) fL RDW Coeff of Bassem (11.5-14.5) % Plt Count (130-400) K/uL MPV (7.4-10.4) fL Immature Gran % (Auto) % Neut % (Auto) % Lymph % (Auto) % [place] % (Auto) % Eos % (Auto) % Baso % (Auto) % Neut # (Auto) (1.4-6.5) K/uL Lymph # (Auto) (1.2-3.4) K/uL [place] # (Auto) (0.11-0.59) K/uL Eos # (Auto) (0-0.5) K/uL Baso # (Auto) (0-0.2) K/uL Immature Gran # (Auto) (0.00-0.02) K/uL PT (9.0-12.0) Seconds INR (0.9-1.1) APTT (21.0-31.0) Seconds PTT Ratio POC Sodium 141 (135-144) mmol/L Sodium (136-145) mmol/L POC Potassium 4.0 (3.3-5.0) mmol/L Potassium (3.5-5.1) mmol/L POC Chloride 100 L (101-112) mmol/L Chloride (98-107) mmol/L Carbon Dioxide (21-32) mmol/L POC Total CO2 29 (24-31) mmol/L Anion Gap (3-11) POC Anion Gap 17.0 (16-25) mmol/L POC BUN 27 H (7-18) mg/dl BUN (7-18) mg/dl Creatinine (0.6-1.2) mg/dl POC Creatinine 0.7 (0.6-1.3) mg/dl Est Cr Clr Drug Dosing ml/min Est GFR ( Amer) ml/min Est GFR (Non-Af Amer) ml/min BUN/Creatinine Ratio (10-20) Glucose (70-99) mg/dl POC Glucose (other) 104 H (70-99) mg/dl Lactate (0.4-2.0) mmol/L Calcium (8.5-10.1) mg/dl POC Ioniz Calcium Kamran 1.26 (1.12-1.32) mmol/l Magnesium (1.8-2.4) mg/dl Total Bilirubin (0.2-1) mg/dl AST (15-37) U/L ALT (12-78) U/L Alkaline Phosphatase (45-117) U/L Troponin I (0-0.045) ng/ml Total Protein (6.4-8.2) gm/dl Albumin (3.4-5.0) gm/dl Globulin (2.5-4.0) gm/dl Albumin/Globulin Ratio (0.9-2) Procalcitonin (0-0.5) ng/ml Urine Color Urine Appearance (Clear) Urine pH (4.5-7.5) Ur Specific [place] (1.000-1.030) Urine Protein (Negative) Urine Glucose (UA) (Negative) Urine Ketones (Negative) Urine Blood (Negative) Urine Nitrite (Negative) Urine Bilirubin (Negative) Urine Urobilinogen (Negative) Ur Leukocyte Esterase (Negative) Urine WBC (Auto) (0-5) /hpf Urine RBC (Auto) (0-4) /hpf U Hyaline Cast (Auto) (0-5) /lpf U Epithel Cells (Auto) (0-5) /lpf Urine Bacteria (Auto) (Negative) COVID-19 Eval Order Covid19 at [facility] SARS-CoV-2 (PCR) NEGATIVE (Negative) Imaging Data Attestation: I personally reviewed and interpreted this imaging study as follows: MDM Narrative Prior records/ancillary studies reviewed and summarized above. Nursing notes reviewed. Additional history obtained from family. The patient's history was concerning for confusion. Differential diagnosis: Etiologies such as metabolic, infection, hypo/hyperglycemia, electrolyte abnormalities, cardiac sources, intracerebral event, toxicologic, neurologic, as well as others were entertained. Physical examination: As above. ER treatment provided: IV Lock An order was placed for continuous cardiac monitoring. The monitor shows a rate of 60-1 10 with a NS rhythm. IV fluids On reassessment the patient felt better. Diagnostics interpretation by me: ECG: Ordered for confusion Normal sinus, normal intervals, left ventricular hypertrophy, rate of 62. Impression normal sinus rhythm with left ventricular perjury interpreted by myself I think arrhythmia is unlikely. EKG shows normal sinus rhythm with no interval abnormalities such as QT prolongation or WPW. There are no findings to suggest Brugada syndrome. Cardiac monitoring in the emergency department reveals no tachycardic or bradycardic dysrhythmia. Hypertrophic cardiomyopathy was considered but there are no clear historical elements pointing toward this. EKG is not suggestive. The QRS voltage is not extremely large and there are no suggestive Q waves. The labs revealed stable H&H, negative troponin Negative Covid, negative urine Imaging studies: Chest x-ray with no acute consolidation, pneumothorax or free air per my interpretation. Right hemidiaphragm elevation. CT HEAD: Comparison to October 14, 2018 The paranasal sinuses and mastoid air cells are normallyaerated. There is no skull fracture or scalp hematoma. There is a normal gyral pattern of the brain. There is no mass lesion or midline shift. The reed-white matter differentiation is maintained. There is mild periventricular white matter lowdensitybilaterally consistent with chronic small vessel disease. There is no evidence of acute large vessel infarct or intracranial hemorrhage. Radiologist: Sam Malcolm MD CTAHEAD: Comparison to October 14, 2018. Mild calcified plaque in the cavernous portions of the distal internal carotid arteries bilaterallywithout significant stenosis. The A1, M1, and P1 segments are patent bilaterally. The right P1 segment is hypoplastic due to a prominent right posterior communicating artery. This is a normal variant. The anterior, middle, and posterior cerebral arteries appear within normal limits. No aneurysm, vascular affirmation, or arterial thrombus is seen. Radiologist: Sam Malcolm MD CTANECK: The aortic arch is nondilated. The great vessel origins are widelypatent. The common carotid, carotid bifurcation, and internal carotid arteries are normal bilaterally. No atherosclerotic plaque, stenosis, or dissection. The vertebral arteries are widelypatent. No plaque, stenosis, or dissection. Incidental note is made of a right thyroid nodule measuring 2 cm. Mild to moderate fibrotic changes in the lung apices. Mild degenerative changes throughout the cervical spine. No acute fracture or subluxation. Radiologist: Sam Malcolm MD TIA Score: Age > 60:(1) 1 BP >140 >90 (1): 1 Clinical features (unilateral weakness) (2): 0 CF speech disturbance (1): 1 Duration of symptoms 10-60min (1): 0 Duration >60min (2): 2 Diabetes (1): 0 Score @ 2days @ 7days @ 90days 0-3 low 1% 1.2% 3.1% 4-5 mod 4.1% 5.9% 9.8% 6-7 high 8.1% 11.7% 17.8% Total: 5 Consultation: A consultation was placed with the hospitalist. The case was discussed and diagnostics were reviewed. The patient was evaluated in the ER for further treatment. Exam and history seem consistent with TIA. Patient is improving. Medicine was consulted. She will be evaluated for admission. TIA score is moderate. By the evaluation outlined above emergent etiologies such as infection, electrolyte abnormalities, cardiac sources, toxologic, abnormalities blood glucose, metabolic, as well as others were deemed relatively unlikely. The pt informed about the findings as listed above. All questions were answered and pleased with the treatment. The chart was completed utilizing [employer] voice recognition software. Grammatical errors, random word insertions, pronoun errors, and incomplete sentences are an occassional consequence of this system due to software limitations, ambient noise, and hardware issues. Any formal questions or concerns about the content, text, or information contained within the body of this dictation should be directly addressed to the physician assistant secretary for clarification. Impression & Plan TIA (transient ischemic attack), Acute confusion Discharge Plan Visit Data Chief Complaint: Confusion Stated Complaint: CONFUSION ED Provider: Maximo Cha ED Midlevel Provider: Joselyn Funes Discharge Problem: TIA (transient ischemic attack), Acute confusion Patient Disposition: Admitted As Inpatient Condition: Fair Forms Stand Alone Forms: [facility] Prescriptions Prescriptions: No Action folic acid 1 mg Tablet 1 mg PO QAM Qty: 0 RF: 0 cholecalciferol (vitamin D3) 1,000 unit Capsule 1,000 unit PO QAM Qty: 0 RF: 0 aspirin 81 mg Tablet,Delayed Release (Dr/Ec) 81 mg PO QAM Qty: 0 RF: 0 atorvastatin [Lipitor] 20 mg Tablet 20 mg PO QAM Qty: 0 RF: 0 omeprazole 20 mg Capsule,Delayed Release(Dr/Ec) 20 mg PO QAM Qty: 0 RF: 0 Eliquis 2.5 mg Tablet 2.5 mg PO BID Qty: 0 RF: 0 cyanocobalamin (vitamin B-12) 1,000 mcg Capsule 2,000 mcg PO QAM Qty: 0 RF: 0 Lumigan 0.01 % Drops 1 drp OPB HS RF: 0 acetaminophen 500 mg Tablet 500 mg PO Q12H PRN (Reason: Pain, Severe) RF: 0 psyllium Powder See Rx Instructions .ROUTE .COMPLEX RF: 0 timolol maleate 0.5 % drops 1 drp OPL PM RF: 0 quetiapine 25 mg Tablet 12.5 mg PO HS Qty: 30 RF: 0 gabapentin 100 mg capsule 200 mg PO HS Qty: 60 RF: 5 levothyroxine [Synthroid] 75 mcg tablet 75 mcg PO QAM RF: 0 Referrals Referrals: Neo Plascencia MD [Primary Care Provider] -
[2021-04-08] MEDS ORDERED: CEFEPIME 2,000 MG/20 ML VIAL IV STA (00:43)
--- NOTE | 2021-04-08 01:29 | Emergency Department Note ---
ED Visit Note The patient was seen and examined with Bree Funes PA-C. I agree with the history, physical and findings. Please see the note for disposition and details. .
[2021-04-08] MEDS ORDERED: lisinopril 5 MG TAB PO ONE (02:00)
[2021-04-08] MEDS ORDERED: APIXABAN 2.5 MG TAB PO STA (02:03)
--- NOTE | 2021-04-08 02:13 | History & Physical Report ---
Date of Service April 08, 2021 Assessment & Plan (1) Encephalopathy: Transient symptoms Multifactorial : Recurrent UTI, history urge incontinence, no sepsis Uncontrolled hypertension (home BP meds stopped last year secondary to low BP as per outpatient notes) Mild clinical dehydration PAFib/ hx PE/MTHFR mutation as per records on Apixaban, patient NSR history of TIA breast cancer R status post surgery papillary thyroid cancer, patient refused surgery hypothyroidism, euthyroid as of TSH 2 months ago Medical telemetry urine CS, Cefepime Outpatient urology referral contemplated by PCP regarding recurrent UTIs Resume lisinopril from last year IVF PT OT eval DVT prophylaxis. Chrissy Full code Patient requests for her daughter to be updated of plan of care. Ms. Franky Johnson, contact #[phone]. Text document was generated using [employer] voice recognition software. It may contain grammatical or spelling errors. Kindly contact undersigned for clarification of any documentation item in question. History of Present Illness Chief Complaint: Oriska confused as per patient Primary Care Provider: Neo Plascencia MD History obtained from patient and records. Medical history is significant for hypertension, PAFib/ hx PE/MTHFR mutation as per records on Apixaban, history of TIA, breast cancer R status post surgery, papillary thyroid cancer, hypothyroidism, recurrent UTIs/urge incontinence as per records. 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 Yesterday patient felt confused, not knowing her name or who she walks as per daughter. Patient denies headache, chest pain, S OB. Cutting down on water intake because of distress of incontinence and not making it to the bathroom. Patient denies abdominal pain/flank pain/dysuria. No fever, no chills. Patient brought to the ER for evaluation. Patient currently improving as per daughter. MEDICAL HISTORY: As above. SURGERIES: hysterectomy, urologic procedures, ex-lap, mastectomy right breast, oophorectomy, sling repair. FAMILY HISTORY: There is a family history of breast cancer, stroke. PERSONAL SOCIAL HISTORY: Nonsmoker. 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 Lives alone. Allergies Allergy/AdvReac Type Severity Reaction Status Date / Time tetanus toxoid, adsorbed Allergy Mild SWELLING Verified 04/07/21 22:06 AND REDNESS sulfamethoxazole AdvReac Dizziness Verified 04/07/21 22:06 [From Bactrim] trimethoprim [From Bactrim] AdvReac Dizziness Verified 04/07/21 22:06 Home Medications Medication Instructions Recorded Confirmed Type cholecalciferol (vitamin D3) 1,000 unit PO QAM #0 03/21/17 04/07/21 History folic acid 1 mg PO QAM #0 03/21/17 04/07/21 History aspirin 81 mg PO QAM #0 10/08/17 04/07/21 History atorvastatin [Lipitor] 20 mg PO QAM #0 tab 02/11/18 04/07/21 History omeprazole 20 mg PO QAM #0 02/11/18 04/07/21 History Eliquis 2.5 mg PO BID #0 tab 03/29/18 04/07/21 History cyanocobalamin (vitamin B-12) 2,000 mcg PO QAM #0 03/29/18 04/07/21 History Lumigan 1 drp OPB HS 10/11/18 04/07/21 History gabapentin 200 mg PO HS #60 cap 10/15/18 04/07/21 Rx levothyroxine [Synthroid] 75 mcg PO QAM 03/26/19 04/07/21 History acetaminophen 500 mg PO Q12H PRN 12/12/20 04/07/21 History psyllium See Rx Instructions .ROUTE .COMPLEX 12/12/20 04/07/21 History timolol maleate 1 drp OPL PM 12/12/20 04/07/21 History quetiapine 12.5 mg PO HS #30 tab 12/14/20 04/07/21 Rx Past Med/Surg History Medical History Acute confusion Atrial fibrillation Atrial fibrillation with RVR Central retinal vein occlusion of right eye Dyslipidemia History of breast cancer "intraductal carcinoma left breast, s/p lumpectomy" History of osteoporosis History of pulmonary embolism HTN (hypertension) Hx of MTHFR mutation LUE weakness Numbness of left hand Papillary carcinoma of thyroid SBO (small bowel obstruction) Small bowel obstruction UGIB (upper gastrointestinal bleed) Uterine prolapse UTI (urinary tract infection) Surgical History H/O oophorectomy History of bladder surgery History of cataract surgery History of hysterectomy S/P exploratory laparotomy lysis of adhesions Status post partial mastectomy "left breast, DCIS" Family History Father Stroke Hypertension Mother Heart disease Social History Smoking Status: Never smoker Second Hand Exposure: No; Do You Dip or Chew Tobacco: No; Hx Alcohol Use: No Hx Substance Use: No Preferred Language: Romanian Communication Ability: Effective Visual Impairment: Limited Hearing Ability: Normal Casino Gaming Inspector Required: No Beliefs That Will Affect Care: None marital status: / Current Living Situation: Alone Current Living Situation Comment: cargivers 3x week, daughter lives next door current occupational status: retired Other Information That Helps Us Care for You: No Feels Safe at Home: Yes Safety Concerns: Feels Safe At This Time Assistive Devices: Glasses and Walker Review of Systems Review of Systems: As per HPI, all 10 systems reviewed, all other ROS negative Physical Exam Physical Exam: GENERAL: uncomfortable, slightly years, slightly hard of hearing, no respiratory distress SKIN: Normal color, warm HEENT: [place] palpebral conjunctivae, no ptosis, dry buccal mucosa NECK : Supple, no tenderness CHEST : CTA, no tenderness HEART : RRR, no obvious murmurs ABDOMEN: Some distention, nontender EXTREMITIES : No LE swelling/tenderness, no other conspicuous deformities noted NEUROLOGIC : Coherent, no facial asymmetry, slightly hard of hearing, no other gross focality Results & Data Results & Data ([facility]) Vital Signs (Past 12 Hours) Vital Signs Temp Pulse Resp BP Pulse Ox 04/08/21 01:30 64 18 158/88 H 96 04/08/21 01:00 64 18 173/90 H 100 04/08/21 00:30 60 18 163/92 H 04/08/21 00:00 64 18 159/82 H 04/07/21 23:30 68 17 164/93 H 04/07/21 23:21 79 18 179/89 H 99 04/07/21 21:10 36.6 C 71 18 173/83 H 98 Laboratory Results Laboratory Results WBC 5.77 K/uL (4.8-10.8) 04/07/21 22:42 RBC 4.25 M/uL (4.2-5.4) 04/07/21 22:42 Hgb 13.3 g/dL (12.0-16.0) 04/07/21 22:42 POC Hgb 13.9 g/dl (12.0-16.0) 04/07/21 22:51 Hct 40.9 % (37-47) 04/07/21 22:42 POC Hct 41 % (37-47) 04/07/21 22:51 MCV 96.2 fL (80-100) 04/07/21 22:42 MCH 31.3 pg (25-34) 04/07/21 22:42 MCHC 32.5 g/dL (32-36) 04/07/21 22:42 RDW Std Deviation 51.7 fL (36.4-46.3) H 04/07/21 22:42 RDW Coeff of Bassem 14.5 % (11.5-14.5) 04/07/21 22:42 Plt Count 224 K/uL (130-400) 04/07/21 22:42 MPV 9.7 fL (7.4-10.4) 04/07/21 22:42 Immature Gran % (Auto) 0.2 % 04/07/21 22:42 Neut % (Auto) 71.0 % 04/07/21 22:42 Lymph % (Auto) 15.6 % 04/07/21 22:42 Crane % (Auto) 12.3 % 04/07/21 22:42 Eos % (Auto) 0.7 % 04/07/21 22:42 Baso % (Auto) 0.2 % 04/07/21 22:42 Neut # (Auto) 4.10 K/uL (1.4-6.5) 04/07/21 22:42 Lymph # (Auto) 0.90 K/uL (1.2-3.4) L 04/07/21 22:42 Crane # (Auto) 0.71 K/uL (0.11-0.59) H 04/07/21 22:42 Eos # (Auto) 0.04 K/uL (0-0.5) 04/07/21 22:42 Baso # (Auto) 0.01 K/uL (0-0.2) 04/07/21 22:42 Immature Gran # (Auto) 0.01 K/uL (0.00-0.02) 04/07/21 22:42 PT 10.3 Seconds (9.0-12.0) 04/07/21 22:42 INR 1.0 (0.9-1.1) 04/07/21 22:42 APTT 26.0 Seconds (21.0-31.0) 04/07/21 22:42 PTT Ratio 1.0 04/07/21 22:42 POC Sodium 141 mmol/L (135-144) 04/07/21 22:51 Sodium 140 mmol/L (136-145) 04/07/21 22:42 POC Potassium 4.0 mmol/L (3.3-5.0) 04/07/21 22:51 Potassium 3.9 mmol/L (3.5-5.1) 04/07/21 22:42 POC Chloride 100 mmol/L (101-112) L 04/07/21 22:51 Chloride 104 mmol/L (98-107) 04/07/21 22:42 Carbon Dioxide 31 mmol/L (21-32) 04/07/21 22:42 POC Total CO2 29 mmol/L (24-31) 04/07/21 22:51 Anion Gap 6.0 (3-11) 04/07/21 22:42 POC Anion Gap 17.0 mmol/L (16-25) 04/07/21 22:51 POC BUN 27 mg/dl (7-18) H 04/07/21 22:51 BUN 25 mg/dl (7-18) H 04/07/21 22:42 Creatinine 0.74 mg/dl (0.6-1.2) 04/07/21 22:42 POC Creatinine 0.7 mg/dl (0.6-1.3) 04/07/21 22:51 Est Cr Clr Drug Dosing 38.5 ml/min 04/07/21 22:42 Est GFR ( Amer) 84.4 ml/min 04/07/21 22:42 Est GFR (Non-Af Amer) 72.8 ml/min 04/07/21 22:42 BUN/Creatinine Ratio 33.9 (10-20) H 04/07/21 22:42 Glucose 103 mg/dl (70-99) H 04/07/21 22:42 POC Glucose (other) 104 mg/dl (70-99) H 04/07/21 22:51 Lactate 1.5 mmol/L (0.4-2.0) 04/07/21 22:42 Calcium 8.8 mg/dl (8.5-10.1) 04/07/21 22:42 POC Ioniz Calcium Kamran 1.26 mmol/l (1.12-1.32) 04/07/21 22:51 Magnesium 2.0 mg/dl (1.8-2.4) 04/07/21 22:42 Total Bilirubin 0.4 mg/dl (0.2-1) 04/07/21 22:42 AST 19 U/L (15-37) 04/07/21 22:42 ALT 32 U/L (12-78) 04/07/21 22:42 Alkaline Phosphatase 134 U/L (45-117) H 04/07/21 22:42 Troponin I < 0.015 ng/ml (0-0.045) 04/07/21 22:42 Total Protein 7.6 gm/dl (6.4-8.2) 04/07/21 22:42 Albumin 3.7 gm/dl (3.4-5.0) 04/07/21 22:42 Globulin 3.9 gm/dl (2.5-4.0) 04/07/21 22:42 Albumin/Globulin Ratio 1.0 (0.9-2) 04/07/21 22:42 Procalcitonin < 0.05 ng/ml (0-0.5) 04/07/21 22:42 Urine Color Dark Yellow 04/07/21 22:32 Urine Appearance Clear (Clear) 04/07/21 22:32 Urine pH 5.0 (4.5-7.5) 04/07/21 22:32 Ur Specific [place] 1.027 (1.000-1.030) 04/07/21 22:32 Urine Protein Negative (Negative) 04/07/21 22:32 Urine Glucose (UA) Negative (Negative) 04/07/21 22:32 Urine Ketones Trace (Negative) H 04/07/21 22:32 Urine Blood 2+ (Negative) H 04/07/21 22:32 Urine Nitrite Negative (Negative) 04/07/21 22:32 Urine Bilirubin 1+ (Negative) H 04/07/21 22:32 Urine Urobilinogen Negative (Negative) 04/07/21 22:32 Ur Leukocyte Esterase 1+ (Negative) H 04/07/21 22:32 Urine WBC (Auto) 5-10 /hpf (0-5) H 04/07/21 22:32 Urine RBC (Auto) 10-30 /hpf (0-4) H 04/07/21 22:32 U Hyaline Cast (Auto) 10-30 /lpf (0-5) H 04/07/21 22:32 U Epithel Cells (Auto) >30 /lpf (0-5) H 04/07/21 22:32 Urine Bacteria (Auto) Negative (Negative) 04/07/21 22:32 COVID-19 Eval Order Covid19 at [facility] 04/07/21 22:46 SARS-CoV-2 (PCR) NEGATIVE (Negative) 04/07/21 22:[address] head initial read: No skull fracture or scalp hematoma. Normal gyral pattern of the brain. No mass lesion or midline shift. No evidence of acute large vessel infarct intracranial hemorrhage. Chronic small vessel ischemic disease. CTA head initial read: Mild calcified plaque in the cavernous portions of the distal internal carotid arteries bilaterally without significant stenosis. A1, M1, and P1 segments are patent bilaterally. Right P1 segment is hypoplastic due to a prominent right posterior communicating artery. Normal variant. Anterior middle and posterior cerebral arteries appear within normal limits. No aneurysm, vascular abnormality, arterial thrombosis seen. CTA neck initial read: The aortic arch is nondilated. Great vessel origins are widely patent. Normal common carotid, carotid bifurcation, and internal carotid arteries. No obstructive plaque, stenosis or dissection. Vertebral arteries are widely patent. Mild to moderate fibrotic changes lung apices. Right thyroid nodule. Chest x-ray as per my interpretation elevated right hemidiaphragm EKG as per my interpretation : Rate 60, NSR, normal axis, no ischemia, LVH
[2021-04-08] MEDS ORDERED: CEFEPIME CONSULT ACTIVE PRN (03:25)
[2021-04-08] MEDS ORDERED: PROMETHAZINE HCL 6.25 MG in SODIUM CHLORIDE 0.9% 50 ML IV PRN (03:25)
[2021-04-08] MEDS ORDERED: LACTATED RINGER'S 1,000 ML IV ONE (03:25)
[2021-04-08] MEDS: TIMOLOL MALEATE 0.5% OP SOLN 5 ML BTL OPL SCH ×2 (03:49→20:09)
[2021-04-08] MEDS: QUEtiapine FUMARATE 25 MG TABLET PO SCH ×2 (03:49→20:05)
[2021-04-08] MEDS ORDERED: lisinopril 2.5 MG TAB PO ONE (04:27)
[2021-04-08] MEDS: LEVOTHYROXINE SODIUM 75 MCG TABLET PO SCH (06:54)
--- NOTE | 2021-04-08 06:55 | CT Scan Report ---
CT head/brain wo con CLINICAL HISTORY: Stroke Like Symptoms COMPARISON STUDY: 12/12/2020 TECHNIQUE: Axial CT of the brain is performed from the vertex to the skull base. IV contrast was not administered for this examination. A dose lowering technique was utilized adhering to the principles of ALARA. CT DOSE: 997.11 mGy.cm FINDINGS: No intra or extra-axial mass lesions are visualized. There is no CT evidence of acute cortical infarc tion. There is no evidence of midline shift. There is no acute hemorrhage. No calvarial fractures ar e visualized. There are patchy white matter hypodensities likely on a small vessel basis. There is no evidence of pathologic ventricular dilatation. There is no evidence of acute sinusitis IMPRESSION: No acute intracranial findings ACT 112: Negative or not required by law. Electronically signed by: Jericho Ponce M.D. 04/08/2021 6:54 AM
--- NOTE | 2021-04-08 06:58 | XRay Report ---
XR chest 1V portable HISTORY: 85 years-old Female SEPSIS acute sepsis COMPARISON: CTA head neck of same day, chest radiograph 12/12/2020, TECHNIQUE: Portable AP view of the chest FINDINGS: The cardiomediastinal and hilar silhouettes are within normal limits. Chronic right hemidiaphragmatic elevation. Chronic pleural thickening with pleural parenchymal scarring of the lung apices, right gr eater than left. Interstitial coarsening is unchanged. Associated bronchiectasis is better characteri zed on comparison CTA of the neck. No pneumothorax, pleural effusion, airspace consolidation or overt pulmonary edema. Stable 10 mm nodular density of the left upper lung. IMPRESSION: Chronic findings as above without acute process. ACT 112: Negative or not required by law. The above report was generated using voice recognition software. It may contain grammatical, syntax o r spelling errors. Electronically signed by: Kobi Helton M.D. 04/08/2021 6:57 AM
--- NOTE | 2021-04-08 07:33 | CT Scan Report ---
CT angio head w con CLINICAL HISTORY: Stroke Like Symptoms TECHNIQUE: CT angiography of the head was performed in a dynamic helical fashion during intravenous a dministration of 120 cc of Optiray. MIP imaging was performed. A dose lowering technique was utilized adhering to the principles of ALARA. CT DOSE: COMPARISON STUDY: 06/10/2020 FINDINGS: There are no lesion suspicious for aneurysm. There is a persistent origin of the righ t posterior cerebral artery with a persistent high-grade stenosis of this vessel. The right P1 segmen t is hypoplastic. IMPRESSION: 1. No significant change from the prior study 2. No evidence of aneurysm 3. Persistent origin of the right posterior cerebral artery with a cyst in high-grade stenosis of this vessel. ACT 112: Negative or not required by law. Electronically signed by: Jericho Ponce M.D. 04/08/2021 7:32 AM
--- NOTE | 2021-04-08 08:11 | CT Scan Report ---
CT angio neck with con CLINICAL HISTORY: 85 years-old Female with Stroke Like Symptoms. Acute strokelike symptoms with al tered mental status COMPARISON STUDY: CTA head of same day and also 06/10/2020 TECHNIQUE: Following the IV administration of 120 mL of Optiray, CT angiogram of the neck was perform ed from the aortic arch to the skull base. Images are reviewed in the axial, sagittal, and coronal pl anes. 3-D MIPS images are created and assessed. IV contrast was administered without complication. Al l measurements were calculated based on NASCET criteria. A dose lowering technique was utilized adhe ring to the principles of ALARA. FINDINGS: The imaged opacified pulmonary arterial tree is unremarkable. Mild atherosclerotic plaque the thoraci c aortic arch. Patency of the innominate and imaged subclavian arteries. The common and internal gupta tid arteries are widely patent. Calcified plaque of the clinoid and supraclinoid segments. Codominant and widely patent vertebral arteries. No aneurysm, dissection, high-grade stenosis or arterial occlu henrique identified. The basilar artery is patent. origin of the right posterior cerebral artery wi th high-grade stenosis redemonstrated. Biapical pleural-parenchymal scarring with traction bronchiectasis and pleural thickening redemonstra david. Multinodular thyroid. Prior left-sided lens repair. Degenerative changes of the cervical spine. IMPRESSION:Unremarkable CTA of the neck. ACT 112: Negative or not required by law. The above report was generated using voice recognition software. It may contain grammatical, syntax o r spelling errors. Electronically signed by: Kobi Helton M.D. 04/08/2021 8:10 AM
[2021-04-08 08:27] LABS: Basophils # (auto) 0.01 K/uL (0-0.2); Basophils % (auto) 0.2 %; Eosinophils # (auto) 0.07 K/uL (0-0.5); Eosinophils % (auto) 1.2 %; Hemoglobin 12.5 g/dL (12.0-16.0); Lymphocytes % (auto) 19.5 %; Mean Corpuscular Hemoglobin 30.6 pg (25-34); Mean Corpuscular Hgb Conc 32.1 g/dL (32-36); Mean Corpuscular Volume 95.6 fL (80-100); Mean Platelet Volume 9.6 fL (7.4-10.4); Monocytes # (auto) 0.64 K/uL (0.11-0.59); Monocytes % (auto) 11.3 %; Neutrophils # (auto) 3.82 K/uL (1.4-6.5); Neutrophils % (auto) 67.8 %; Platelet Count 218 K/uL (130-400); RDW Coefficient of Variation 14.5 % (11.5-14.5); RDW Standard Deviation 50.4 fL (36.4-46.3); Red Blood Count 4.08 M/uL (4.2-5.4); White Blood Count 5.64 K/uL (4.8-10.8)
[2021-04-08] MEDS: APIXABAN 2.5 MG TAB PO SCH ×2 (08:31→20:06)
[2021-04-08] MEDS: ASPIRIN 81 MG ECTAB PO SCH (08:31)
[2021-04-08] MEDS: PANTOprazole 40 MG TAB PO SCH (08:31)
[2021-04-08] MEDS: FOLIC ACID 1 MG TAB PO SCH (08:31)
[2021-04-08] MEDS: CYANOCOBALAMIN 500 MCG TABLET (VITAMIN B-12) PO SCH (08:31)
[2021-04-08] MEDS: ATORVASTATIN 20 MG TAB PO SCH (08:31)
[2021-04-08 08:59] LABS: BUN Creatinine Ratio 35.8 (10-20); Calcium 8.5 mg/dl (8.5-10.1); Creatinine Clr Calc Pharmacy 55.1 ml/min; Est GFR (African American) 102.9 ml/min; Est GFR (Non-African American) 88.8 ml/min; Potassium 3.6 mmol/L (3.5-5.1)
--- NOTE | 2021-04-08 12:04 | Hospitalist Progress Note ---
Date of Service April 08, 2021 Assessment & Plan (1) Encephalopathy: Transient symptoms Multifactorial : Recurrent UTI, Grew out E Coli in past, history urge incontinence, eval April 26 Uncontrolled hypertension (home BP meds stopped last year secondary to low BP as per outpatient notes) Mild clinical dehydration PAFib/ hx PE/MTHFR mutation as per records on Apixaban, patient NSR history of TIA breast cancer R status post surgery papillary thyroid cancer, patient refused surgery hypothyroidism, euthyroid as of TSH 2 months ago Medical telemetry urine CS, Cefepime Resume lisinopril from last year IVF PT OT eval DVT prophylaxis. Eliquis Full code Labs checked ROS-No Headache, No Visual Changes, No Nausea, No Vomiting, No Fever, No Chills, No Neck Pain or Stiffness, No Chest Pain, No Palpitations, No SOB, No OSORIO, No Cough, No Sputum, No Wheezing, No Abdominal Pain, No Diarrhea, No Hematemesis, No Hemoptysis, No Unexpected Weight Loss, No Flank pain, No Melena, No Hematochezia, No Frequency, No Urgency, No Burning, No Hematuria, No Rashes, No Diaphoresis. Appetite is Normal Physical Exam Gen-AAO x 3, NAD, Afebrile Head-NCAT, EOMI, PERRLA, Anicteric Sclera, No Posterior Pharyngeal Erythema Neck-Supple, No JVD, No Thyromegaly, No Masses, No LAD, No Bruits Lungs-Clear to Auscultation Bilaterally, No Rales, No Rhonchi, No Wheezing, No Crepitus Chest-No S4, +S1, +S2, No S3, No Murmurs, No Rubs, No Gallops, No Ectopy Abdomen-Soft, Bowel Sounds Present, Non Tender, Non Distended, No Hepatomegaly, No Splenomegaly, No Palpable Masses, No Rebound, No Rigidity, No Guarding Musculoskeletal-Full Range of Motion Bilaterally, No CVAT Extremities-No Cyanosis, No Clubbing, No Edema Nuero-Cranial Nerves II-XII grossly intact, Motor WNL, DTRs WNL, Strength WNL, Non Focal Psych-Normal Mood Admission and Anticipated Discharge Date Admission Date: April 08, 2021 Results & Data Results & Data ([facility]) Vital Signs (Past 12 Hours) Vital Signs Temp Pulse Pulse Resp BP BP BP 04/08/21 06:37 36.5 C 59 L 18 167/85 H 04/08/21 04:07 36.5 C 61 18 183/84 H 04/08/21 04:05 59 L 04/08/21 03:30 36.4 C L 59 L 18 181/94 H 208/99 H 04/08/21 03:00 60 14 168/94 H 04/08/21 02:30 60 19 161/90 H 04/08/21 02:10 61 13 154/109 H 04/08/21 01:30 64 18 158/88 H 04/08/21 01:00 64 18 173/90 H 04/08/21 00:30 60 18 163/92 H Pulse Ox 04/08/21 06:37 97 04/08/21 04:07 96 04/08/21 04:05 04/08/21 03:30 98 04/08/21 03:00 98 04/08/21 02:30 95 04/08/21 02:10 95 04/08/21 01:30 96 04/08/21 01:00 100 04/08/21 00:30
--- NOTE | 2021-04-08 14:39 | Electrocardiogram Report ---
Test Reason : Blood Pressure : / mmHG Vent. Rate : 062 BPM Atrial Rate : 062 BPM P-R Int : 154 ms QRS Dur : 082 ms QT Int : 422 ms P-R-T Axes : 088 073 046 degrees QTc Int : 428 ms Normal sinus rhythm Left ventricular hypertrophy with repolarization abnormality Abnormal ECG When compared with ECG of 12-DEC-2020 15:45, No significant change was found Confirmed by Reese Rhodes ([id number]) on 04/08/2021 2:39:13 PM Referred By: REFERRED SELF Confirmed By:Reese Rhodes
[2021-04-08] MEDS: hydrALAZINE HCL 25 MG TAB PO SCH ×2 (15:46→20:06)
[2021-04-08] MEDS ORDERED: CEFEPIME 2,000 MG in SYRINGE 0 ML IV SCH (20:00)
[2021-04-08] MEDS: ACETAMINOPHEN 325 MG TAB PO PRN (20:05)
[2021-04-08] MEDS: BIMATOPROST 0.01% OP SOLN 2.5 ML BTL OPB SCH (20:09)
[2021-04-09] MEDS: hydrALAZINE HCL 25 MG TAB PO SCH ×4 (03:19→20:05)
[2021-04-09] MEDS: LEVOTHYROXINE SODIUM 75 MCG TABLET PO SCH (06:04)
[2021-04-09 07:07] LABS: Hematocrit (blood only) 38.2 % (37-47); Hemoglobin 12.2 g/dL (12.0-16.0); Mean Corpuscular Hemoglobin 30.6 pg (25-34); Mean Corpuscular Hgb Conc 31.9 g/dL (32-36); Mean Corpuscular Volume 95.7 fL (80-100); Mean Platelet Volume 9.6 fL (7.4-10.4); Platelet Count 200 K/uL (130-400); RDW Coefficient of Variation 14.4 % (11.5-14.5); RDW Standard Deviation 50.9 fL (36.4-46.3); Red Blood Count 3.99 M/uL (4.2-5.4); White Blood Count 4.85 K/uL (4.8-10.8)
[2021-04-09 07:44] LABS: BUN Creatinine Ratio 43.6 (10-20); Calcium 8.3 mg/dl (8.5-10.1); Creatinine Clr Calc Pharmacy 48.3 ml/min; Est GFR (African American) 95.5 ml/min; Est GFR (Non-African American) 82.4 ml/min; Potassium 3.4 mmol/L (3.5-5.1)
[2021-04-09] MEDS: ATORVASTATIN 20 MG TAB PO SCH (07:59)
[2021-04-09] MEDS: FOLIC ACID 1 MG TAB PO SCH (07:59)
[2021-04-09] MEDS: APIXABAN 2.5 MG TAB PO SCH ×2 (07:59→20:02)
[2021-04-09] MEDS: ASPIRIN 81 MG ECTAB PO SCH (07:59)
[2021-04-09] MEDS: CYANOCOBALAMIN 500 MCG TABLET (VITAMIN B-12) PO SCH (07:59)
[2021-04-09] MEDS: PANTOprazole 40 MG TAB PO SCH (08:00)
[2021-04-09] MEDS ORDERED: lisinopril 5 MG TAB PO SCH (09:00)
[2021-04-09] MEDS ORDERED: lisinopril 2.5 MG TAB PO SCH (09:00)
--- NOTE | 2021-04-09 11:13 | Hospitalist Progress Note ---
Date of Service April 09, 2021 Assessment & Plan (1) Encephalopathy: Transient symptoms Multifactorial : Severe agitation and altered at 1030 am-Code Stroke Alert called, No CVA, Sitter, supportive care Recurrent UTI, Grew out E Coli in past, history urge incontinence, eval April 26, Rocephin, Stop Cefepime Uncontrolled hypertension (home BP meds stopped last year secondary to low BP as per outpatient notes) Mild clinical dehydration PAFib/ hx PE/MTHFR mutation as per records on Apixaban, patient NSR history of TIA breast cancer R status post surgery papillary thyroid cancer, patient refused surgery hypothyroidism, euthyroid as of TSH 2 months ago Medical telemetry Resume lisinopril from last year IVF PT OT eval DVT prophylaxis. Eliquis Full code Labs checked ROS-No Headache, No Visual Changes, No Nausea, No Vomiting, No Fever, No Chills, No Neck Pain or Stiffness, No Chest Pain, No Palpitations, No SOB, No OSORIO, No Cough, No Sputum, No Wheezing, No Abdominal Pain, No Diarrhea, No Hematemesis, No Hemoptysis, No Unexpected Weight Loss, No Flank pain, No Melena, No Hematochezia, No Frequency, No Urgency, No Burning, No Hematuria, No Rashes, No Diaphoresis. Appetite is Normal Physical Exam Gen-AAO x 3, NAD, Afebrile--Confused and agitated a 1/2 hour ago, OK when I saw her at 8 am Head-NCAT, EOMI, PERRLA, Anicteric Sclera, No Posterior Pharyngeal Erythema Neck-Supple, No JVD, No Thyromegaly, No Masses, No LAD, No Bruits Lungs-Clear to Auscultation Bilaterally, No Rales, No Rhonchi, No Wheezing, No Crepitus Chest-No S4, +S1, +S2, No S3, No Murmurs, No Rubs, No Gallops, No Ectopy Abdomen-Soft, Bowel Sounds Present, Non Tender, Non Distended, No Hepatomegaly, No Splenomegaly, No Palpable Masses, No Rebound, No Rigidity, No Guarding Musculoskeletal-Full Range of Motion Bilaterally, No CVAT Extremities-No Cyanosis, No Clubbing, No Edema Nuero-Cranial Nerves II-XII grossly intact, Motor WNL, DTRs WNL, Strength WNL, Non Focal Psych-Normal Mood Admission and Anticipated Discharge Date Admission Date: April 08, 2021 Results & Data Results & Data ([facility]) Vital Signs (Past 12 Hours) Vital Signs Temp Pulse Pulse Resp BP BP Pulse Ox 04/09/21 07:20 60 04/09/21 07:15 36.3 C L 61 16 172/73 H 97 04/09/21 05:28 36.3 C L 54 L 20 145/73 H 99 04/09/21 03:16 36.6 C 71 168/87 H 98 04/08/21 23:22 36.3 C L 57 L 20 143/73 H 97
[2021-04-09] MEDS ORDERED: HALOPERIDOL LACTATE 5 MG/ML 1 ML VIAL IV STA (11:14)
[2021-04-09] MEDS ORDERED: HALOPERIDOL LACTATE 5 MG/ML 1 ML VIAL IM STA (11:45)
[2021-04-09] MEDS ORDERED: HALOPERIDOL LACTATE 5 MG/ML 1 ML VIAL IM PRN (11:47)
[2021-04-09] MEDS: NSS + 20MEQ KCL 20 MEQ/1,000 ML BAG IV SCH ×2 (12:52→22:43)
[2021-04-09] MEDS: lisinopril 10 MG TAB PO SCH (14:49)
[2021-04-09] MEDS: cefTRIAXone SODIUM 1,000 MG in DEXTROSE 5% 50 ML IV SCH (19:57)
[2021-04-09] MEDS: QUEtiapine FUMARATE 25 MG TABLET PO SCH (20:01)
[2021-04-09] MEDS: TIMOLOL MALEATE 0.5% OP SOLN 5 ML BTL OPL SCH (20:03)
[2021-04-09] MEDS: BIMATOPROST 0.01% OP SOLN 2.5 ML BTL OPB SCH (20:03)
[2021-04-09] MEDS: haloperidoL 1 MG TAB PO SCH (20:03)
[2021-04-09] MEDS ORDERED: HALOPERIDOL LACTATE 5 MG/ML 1 ML VIAL IV SCH (21:00)
[2021-04-10] MEDS: hydrALAZINE HCL 25 MG TAB PO SCH ×4 (02:41→20:22)
[2021-04-10] MEDS: LEVOTHYROXINE SODIUM 75 MCG TABLET PO SCH (06:07)
[2021-04-10 07:51] LABS: Hematocrit (blood only) 41.5 % (37-47); Hemoglobin 13.5 g/dL (12.0-16.0); Mean Corpuscular Hemoglobin 30.4 pg (25-34); Mean Corpuscular Hgb Conc 32.5 g/dL (32-36); Mean Corpuscular Volume 93.5 fL (80-100); Mean Platelet Volume 9.8 fL (7.4-10.4); Platelet Count 202 K/uL (130-400); RDW Coefficient of Variation 14.5 % (11.5-14.5); RDW Standard Deviation 49.7 fL (36.4-46.3); Red Blood Count 4.44 M/uL (4.2-5.4); White Blood Count 6.94 K/uL (4.8-10.8)
[2021-04-10 08:27] LABS: BUN Creatinine Ratio 37.6 (10-20); Calcium 8.8 mg/dl (8.5-10.1); Creatinine Clr Calc Pharmacy 56.9 ml/min; Est GFR (African American) 100.9 ml/min
[2021-04-10] MEDS: CYANOCOBALAMIN 500 MCG TABLET (VITAMIN B-12) PO SCH (08:39)
[2021-04-10] MEDS: FOLIC ACID 1 MG TAB PO SCH (08:39)
[2021-04-10] MEDS: APIXABAN 2.5 MG TAB PO SCH ×2 (08:39→20:24)
[2021-04-10] MEDS: ATORVASTATIN 20 MG TAB PO SCH (08:39)
[2021-04-10] MEDS: ASPIRIN 81 MG ECTAB PO SCH (08:39)
[2021-04-10] MEDS: lisinopril 10 MG TAB PO SCH (08:40)
[2021-04-10] MEDS: PANTOprazole 40 MG TAB PO SCH (08:40)
[2021-04-10] MEDS: NSS + 20MEQ KCL 20 MEQ/1,000 ML BAG IV SCH (08:55)
--- NOTE | 2021-04-10 13:00 | Discharge Summary ---
Date of Service April 10, 2021 Admission HPI Per Admitting Provider History obtained from patient and records. Medical history is significant for hypertension, PAFib/ hx PE/MTHFR mutation as per records on Apixaban, history of TIA, breast cancer R status post surgery, papillary thyroid cancer, hypothyroidism, recurrent UTIs/urge incontinence as per records. 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 Yesterday patient felt confused, not knowing her name or who she walks as per daughter. Patient denies headache, chest pain, S OB. Cutting down on water intake because of distress of incontinence and not making it to the bathroom. Patient denies abdominal pain/flank pain/dysuria. No fever, no chills. Patient brought to the ER for evaluation. Patient currently improving as per daughter. MEDICAL HISTORY: As above. SURGERIES: hysterectomy, urologic procedures, ex-lap, mastectomy right breast, oophorectomy, sling repair. FAMILY HISTORY: There is a family history of breast cancer, stroke. PERSONAL SOCIAL HISTORY: Nonsmoker. 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 Lives alone. Admission Exam Per Admitting Provider GENERAL: uncomfortable, slightly years, slightly hard of hearing, no respiratory distress SKIN: Normal color, warm HEENT: [place] palpebral conjunctivae, no ptosis, dry buccal mucosa NECK : Supple, no tenderness CHEST : CTA, no tenderness HEART : RRR, no obvious murmurs ABDOMEN: Some distention, nontender EXTREMITIES : No LE swelling/tenderness, no other conspicuous deformities noted NEUROLOGIC : Coherent, no facial asymmetry, slightly hard of hearing, no other gross focality Principal Diagnosis UTI Altered Mental status Encephalopathy:Delirium From UTI Recurrent UTI Uncontrolled hypertension Mild clinical dehydration PAFib/ hx PE/MTHFR mutation as per records on Apixaban, patient NSR history of TIA breast cancer R status post surgery papillary thyroid cancer hypothyroidism Discharge Exam See below Discharge Data Allergies Allergy/AdvReac Type Severity Reaction Status Date / Time tetanus toxoid, adsorbed Allergy Mild SWELLING Verified 04/07/21 22:06 AND REDNESS sulfamethoxazole AdvReac Dizziness Verified 04/07/21 22:06 [From Bactrim] trimethoprim [From Bactrim] AdvReac Dizziness Verified 04/07/21 22:06 Consultations 04/08/21 00:28 ED Decision to Admit Stat Ordered Studies 04/07/21 22:17 CT angio head w con Urgent CT angio neck with con Urgent CT head/brain wo con Urgent Current Diagnoses Encephalopathy, unspecified (04/08/21) Allergies tetanus toxoid, adsorbed Allergy (Mild, Verified 04/07/21 22:06) SWELLING AND REDNESS sulfamethoxazole [From Bactrim] Adverse Reaction (Verified 04/07/21 22:06) Dizziness trimethoprim [From Bactrim] Adverse Reaction (Verified 04/07/21 22:06) Dizziness Height/Weight/Isolation Height 5 ft Weight 45.6 kg Isolation Type Contact Precautions Chemistry 04/09/21 04/10/21 06:17 07:16 Sodium 141 138 Potassium 3.4 L 4.0 D Chloride 107 108 H Carbon Dioxide 29 26 Anion Gap 5.0 5.0 BUN 26 H D 19 H Creatinine 0.59 L 0.50 L Glucose 75 85 Microbiology 04/07/21 22:42 Blood Aerobic Blood Culture - Preliminary No growth in Aerobic bottle after 48 hours. 04/07/21 22:42 Blood Anaerobic Blood Culture - Preliminary No growth in Anaerobic bottle after 48 hours. 04/07/21 22:42 Blood Aerobic Blood Culture - Preliminary No growth in Aerobic bottle after 48 hours. 04/07/21 22:42 Blood Anaerobic Blood Culture - Preliminary No growth in Anaerobic bottle after 48 hours. 04/07/21 22:32 Urine,Clean Catch Urine Culture - Final More than three types of organisms present, all high counts mixed probable skin lenny - No further identifications or sensitivities to follow. Hospital Course (1) Encephalopathy: Multifactorial : Severe agitation and altered at 1030 am 04/09-Code Stroke Alert called, No CVA, likely ing Recurrent UTI, Grew out E Coli in past, All Cx NGTD so far, history urge incontinence, eval April 26, Rocephin, Stop Cefepime Uncontrolled hypertension (home BP meds stopped last year secondary to low BP as per outpatient notes) Mild clinical dehydration PAFib/ hx PE/MTHFR mutation as per records on Apixaban, patient NSR history of TIA breast cancer R status post surgery papillary thyroid cancer, patient refused surgery hypothyroidism, euthyroid as of TSH 2 months ago DC home today, hopefully mind will clear at home Labs checked ROS-No Headache, No Visual Changes, No Nausea, No Vomiting, No Fever, No Chills, No Neck Pain or Stiffness, No Chest Pain, No Palpitations, No SOB, No OSORIO, No Cough, No Sputum, No Wheezing, No Abdominal Pain, No Diarrhea, No Hematemesis, No Hemoptysis, No Unexpected Weight Loss, No Flank pain, No Melena, No Hematochezia, No Frequency, No Urgency, No Burning, No Hematuria, No Rashes, No Diaphoresis. Appetite is Normal, +Hallucinations Physical Exam Gen-AAO x 3, NAD, Afebrile Head-NCAT, EOMI, PERRLA, Anicteric Sclera, No Posterior Pharyngeal Erythema Neck-Supple, No JVD, No Thyromegaly, No Masses, No LAD, No Bruits Lungs-Clear to Auscultation Bilaterally, No Rales, No Rhonchi, No Wheezing, No Crepitus Chest-No S4, +S1, +S2, No S3, No Murmurs, No Rubs, No Gallops, No Ectopy Abdomen-Soft, Bowel Sounds Present, Non Tender, Non Distended, No Hepatomegaly, No Splenomegaly, No Palpable Masses, No Rebound, No Rigidity, No Guarding Musculoskeletal-Full Range of Motion Bilaterally, No CVAT Extremities-No Cyanosis, No Clubbing, No Edema Nuero-Cranial Nerves II-XII grossly intact, Motor WNL, DTRs WNL, Strength WNL, Non Focal Psych-Normal Mood Total Time Total Time Spent Total Time Spent (In Minutes): 45 mins Total Time Includes: Examination of the Patient, Discharge Planning, Medication Reconciliation and Communication With Other Providers Discharge Plan Discharge Items Patient Disposition: Home - Self-Care Reason For Visit: ENCEPHALOPATHY Discharge Diagnosis: UTI Altered Mental status Encephalopathy:Delirium From UTI Recurrent UTI Uncontrolled hypertension Mild clinical dehydration PAFib/ hx PE/MTHFR mutation as per records on Apixaban, patient NSR history of TIA breast cancer R status post surgery papillary thyroid cancer hypothyroidism Condition on Discharge: Fair Health Concerns: Continued mental decline Activity: Resume your previous activity Lifting: Gradually increase as tolerated Bathing: No limitations Exercise/Sports: Gradually increase as tolerated Driving/Machine Use: None Weightbearing: Full weightbearing Non-emergency contact: Primary Care Provider Call non-emergency contact if: you have any medication questions Follow-up/Referrals: Neo Plascencia MD [Primary Care Provider] - Diet: Heart Healthy Addtl Attending Provider Instructions: None Pending Studies at Discharge: No Stand-Alone Forms: My [facility], Smoking Cessation Medications and DC Order Prescriptions: New cefuroxime axetil 250 mg tablet 250 mg PO BID 7 Days Qty: 14 RF: 0 Continued folic acid 1 mg Tablet 1 mg PO QAM Qty: 0 RF: 0 cholecalciferol (vitamin D3) 1,000 unit Capsule 1,000 unit PO QAM Qty: 0 RF: 0 aspirin 81 mg Tablet,Delayed Release (Dr/Ec) 81 mg PO QAM Qty: 0 RF: 0 atorvastatin [Lipitor] 20 mg Tablet 20 mg PO QAM Qty: 0 RF: 0 omeprazole 20 mg Capsule,Delayed Release(Dr/Ec) 20 mg PO QAM Qty: 0 RF: 0 Eliquis 2.5 mg Tablet 2.5 mg PO BID Qty: 0 RF: 0 cyanocobalamin (vitamin B-12) 1,000 mcg Capsule 2,000 mcg PO QAM Qty: 0 RF: 0 Lumigan 0.01 % Drops 1 drp OPB HS RF: 0 acetaminophen 500 mg Tablet 500 mg PO Q12H PRN (Reason: Pain, Severe) RF: 0 psyllium Powder See Rx Instructions .ROUTE .COMPLEX RF: 0 timolol maleate 0.5 % drops 1 drp OPL PM RF: 0 quetiapine 25 mg Tablet 12.5 mg PO HS Qty: 30 RF: 0 gabapentin 100 mg capsule 200 mg PO HS Qty: 60 RF: 5 levothyroxine [Synthroid] 75 mcg tablet 75 mcg PO QAM RF: 0 Discharge Orders: Discharge Order (Routine); Ordered 04/10/21 Ordered By: Catrachito Singleton Admission Data Admit Date/Time: 04/08/21 02:15 Attending Provider: Catrachito Singleton Admit Provider: Randy Hairston Primary Care Provider: Neo Plascencia Other Providers: Randy Hairston
--- NOTE | 2021-04-10 16:11 | Hospitalist Progress Note ---
Date of Service April 10, 2021 Assessment & Plan (1) Encephalopathy: Multifactorial : Severe agitation and altered at 1030 am 04/09-Code Stroke Alert called, No CVA, likely Recurrent UTI, Grew out E Coli in past, All Cx NGTD so far, history urge incontinence, eval April 26, Rocephin, Stop Cefepime Uncontrolled hypertension (home BP meds stopped last year secondary to low BP as per outpatient notes) Mild clinical dehydration PAFib/ hx PE/MTHFR mutation as per records on Apixaban, patient NSR history of TIA breast cancer R status post surgery papillary thyroid cancer, patient refused surgery hypothyroidism, euthyroid as of TSH 2 months ago DC home when able POA paperwork being brought in tomorrow Labs checked ROS-No Headache, No Visual Changes, No Nausea, No Vomiting, No Fever, No Chills, No Neck Pain or Stiffness, No Chest Pain, No Palpitations, No SOB, No OSORIO, No Cough, No Sputum, No Wheezing, No Abdominal Pain, No Diarrhea, No Hematemesis, No Hemoptysis, No Unexpected Weight Loss, No Flank pain, No Melena, No Hematochezia, No Frequency, No Urgency, No Burning, No Hematuria, No Rashes, No Diaphoresis. Appetite is Normal, +Hallucinations Physical Exam Gen-AAO x 3, NAD, Afebrile Head-NCAT, EOMI, PERRLA, Anicteric Sclera, No Posterior Pharyngeal Erythema Neck-Supple, No JVD, No Thyromegaly, No Masses, No LAD, No Bruits Lungs-Clear to Auscultation Bilaterally, No Rales, No Rhonchi, No Wheezing, No Crepitus Chest-No S4, +S1, +S2, No S3, No Murmurs, No Rubs, No Gallops, No Ectopy Abdomen-Soft, Bowel Sounds Present, Non Tender, Non Distended, No Hepatomegaly, No Splenomegaly, No Palpable Masses, No Rebound, No Rigidity, No Guarding Musculoskeletal-Full Range of Motion Bilaterally, No CVAT Extremities-No Cyanosis, No Clubbing, No Edema Nuero-Cranial Nerves II-XII grossly intact, Motor WNL, DTRs WNL, Strength WNL, Non Focal Psych-Normal Mood Admission and Anticipated Discharge Date Admission Date: April 08, 2021 Results & Data Results & Data ([facility]) Vital Signs (Past 12 Hours) Vital Signs Temp Pulse Pulse Resp BP Pulse Ox 04/10/21 14:24 83 04/10/21 10:55 36.7 C 72 17 146/76 H 99 04/10/21 08:00 36.6 C 80 17 164/90 H 98 04/10/21 07:13 68
[2021-04-10] MEDS: cefTRIAXone SODIUM 1,000 MG in DEXTROSE 5% 50 ML IV SCH (20:21)
[2021-04-10] MEDS: QUEtiapine FUMARATE 25 MG TABLET PO SCH (20:22)
[2021-04-10] MEDS: TIMOLOL MALEATE 0.5% OP SOLN 5 ML BTL OPL SCH (20:22)
[2021-04-10] MEDS: BIMATOPROST 0.01% OP SOLN 2.5 ML BTL OPB SCH (20:22)
[2021-04-10] MEDS: haloperidoL 1 MG TAB PO SCH (20:25)
[2021-04-10] MEDS ORDERED: HALOPERIDOL LACTATE 5 MG/ML 1 ML VIAL IM PRN (22:03)
[2021-04-11] MEDS: hydrALAZINE HCL 25 MG TAB PO SCH ×4 (02:33→20:23)
[2021-04-11] MEDS: LEVOTHYROXINE SODIUM 75 MCG TABLET PO SCH (05:42)
[2021-04-11] MEDS: ASPIRIN 81 MG ECTAB PO SCH (07:58)
[2021-04-11] MEDS: ATORVASTATIN 20 MG TAB PO SCH (07:58)
[2021-04-11] MEDS: APIXABAN 2.5 MG TAB PO SCH ×2 (07:58→20:23)
[2021-04-11] MEDS: CYANOCOBALAMIN 500 MCG TABLET (VITAMIN B-12) PO SCH (07:58)
[2021-04-11] MEDS: FOLIC ACID 1 MG TAB PO SCH (07:59)
[2021-04-11] MEDS: lisinopril 10 MG TAB PO SCH (07:59)
[2021-04-11] MEDS: PANTOprazole 40 MG TAB PO SCH (07:59)
--- NOTE | 2021-04-11 09:59 | Hospitalist Progress Note ---
Date of Service April 11, 2021 Assessment & Plan (1) Encephalopathy: Multifactorial : Severe agitation and altered at 1030 am 04/09-Code Stroke Alert called, No CVA, likely Recurrent UTI, Grew out E Coli in past, All Cx NGTD so far, history urge incontinence, eval April 26, Rocephin, Stop Cefepime Uncontrolled hypertension (home BP meds stopped last year secondary to low BP as per outpatient notes) Mild clinical dehydration PAFib/ hx PE/MTHFR mutation as per records on Apixaban, patient NSR history of TIA breast cancer R status post surgery papillary thyroid cancer, patient refused surgery hypothyroidism, euthyroid as of TSH 2 months ago DC home when able POA paperwork being brought in today Labs checked ROS-No Headache, No Visual Changes, No Nausea, No Vomiting, No Fever, No Chills, No Neck Pain or Stiffness, No Chest Pain, No Palpitations, No SOB, No OSORIO, No Cough, No Sputum, No Wheezing, No Abdominal Pain, No Diarrhea, No Hematemesis, No Hemoptysis, No Unexpected Weight Loss, No Flank pain, No Melena, No Hematochezia, No Frequency, No Urgency, No Burning, No Hematuria, No Rashes, No Diaphoresis. Appetite is Normal, Physical Exam Gen-AAO x 3, NAD, Afebrile Head-NCAT, EOMI, PERRLA, Anicteric Sclera, No Posterior Pharyngeal Erythema Neck-Supple, No JVD, No Thyromegaly, No Masses, No LAD, No Bruits Lungs-Clear to Auscultation Bilaterally, No Rales, No Rhonchi, No Wheezing, No Crepitus Chest-No S4, +S1, +S2, No S3, No Murmurs, No Rubs, No Gallops, No Ectopy Abdomen-Soft, Bowel Sounds Present, Non Tender, Non Distended, No Hepatomegaly, No Splenomegaly, No Palpable Masses, No Rebound, No Rigidity, No Guarding Musculoskeletal-Full Range of Motion Bilaterally, No CVAT Extremities-No Cyanosis, No Clubbing, No Edema Nuero-Cranial Nerves II-XII grossly intact, Motor WNL, DTRs WNL, Strength WNL, Non Focal Psych-Confused at times Admission and Anticipated Discharge Date Admission Date: April 08, 2021 Results & Data Results & Data ([facility]) Vital Signs (Past 12 Hours) Vital Signs Temp Pulse Pulse Resp BP BP Pulse Ox 04/11/21 08:42 36.5 C 74 16 119/67 96 04/11/21 07:03 36.5 C 71 16 162/87 H 95 04/11/21 06:26 85 04/11/21 04:11 36.6 C 72 16 152/86 H 98 04/11/21 01:35 83
[2021-04-11] MEDS: cefTRIAXone SODIUM 1,000 MG in DEXTROSE 5% 50 ML IV SCH (20:21)
[2021-04-11] MEDS: haloperidoL 0.5 MG TAB PO SCH (20:23)
[2021-04-11] MEDS: QUEtiapine FUMARATE 25 MG TABLET PO SCH (20:23)
[2021-04-11] MEDS: TIMOLOL MALEATE 0.5% OP SOLN 5 ML BTL OPL SCH (20:24)
[2021-04-11] MEDS: BIMATOPROST 0.01% OP SOLN 2.5 ML BTL OPB SCH (20:24)
[2021-04-12] MEDS: hydrALAZINE HCL 25 MG TAB PO SCH ×4 (03:28→19:34)
[2021-04-12] MEDS: LEVOTHYROXINE SODIUM 75 MCG TABLET PO SCH (06:05)
--- NOTE | 2021-04-12 08:07 | Hospitalist Progress Note ---
Date of Service April 12, 2021 Assessment & Plan (1) Encephalopathy: Multifactorial : Severe agitation and altered at 1030 am 04/09-Code Stroke Alert called, No CVA, likely Recurrent UTI, Grew out E Coli in past, All Cx NGTD so far, history urge incontinence, eval April 26, Rocephin, Stop Cefepime Uncontrolled hypertension (home BP meds stopped last year secondary to low BP as per outpatient notes) Mild clinical dehydration PAFib/ hx PE/MTHFR mutation as per records on Apixaban, patient NSR history of TIA breast cancer R status post surgery papillary thyroid cancer, patient refused surgery hypothyroidism, euthyroid as of TSH 2 months ago [facility] when able Labs checked ROS-No Headache, No Visual Changes, No Nausea, No Vomiting, No Fever, No Chills, No Neck Pain or Stiffness, No Chest Pain, No Palpitations, No SOB, No OSORIO, No Cough, No Sputum, No Wheezing, No Abdominal Pain, No Diarrhea, No Hematemesis, No Hemoptysis, No Unexpected Weight Loss, No Flank pain, No Melena, No Hematochezia, No Frequency, No Urgency, No Burning, No Hematuria, No Rashes, No Diaphoresis. Appetite is Normal, Physical Exam Gen-AAO x 3, NAD, Afebrile Head-NCAT, EOMI, PERRLA, Anicteric Sclera, No Posterior Pharyngeal Erythema Neck-Supple, No JVD, No Thyromegaly, No Masses, No LAD, No Bruits Lungs-Clear to Auscultation Bilaterally, No Rales, No Rhonchi, No Wheezing, No Crepitus Chest-No S4, +S1, +S2, No S3, No Murmurs, No Rubs, No Gallops, No Ectopy Abdomen-Soft, Bowel Sounds Present, Non Tender, Non Distended, No Hepatomegaly, No Splenomegaly, No Palpable Masses, No Rebound, No Rigidity, No Guarding Musculoskeletal-Full Range of Motion Bilaterally, No CVAT Extremities-No Cyanosis, No Clubbing, No Edema Nuero-Cranial Nerves II-XII grossly intact, Motor WNL, DTRs WNL, Strength WNL, Non Focal Psych-Confused at times Admission and Anticipated Discharge Date Admission Date: April 08, 2021 Results & Data Results & Data ([facility]) Vital Signs (Past 12 Hours) Vital Signs Temp Pulse Pulse Resp BP BP Pulse Ox 04/12/21 07:58 36.3 C L 65 20 164/83 H 169/80 H 99 04/12/21 07:00 65 04/12/21 03:26 36.4 C L 64 20 141/75 H 99 04/11/21 23:20 36.5 C 70 16 133/80 95 04/11/21 23:16 69 04/11/21 20:20 71 130/68
[2021-04-12] MEDS: APIXABAN 2.5 MG TAB PO SCH ×2 (08:19→19:33)
[2021-04-12] MEDS: CYANOCOBALAMIN 500 MCG TABLET (VITAMIN B-12) PO SCH (08:20)
[2021-04-12] MEDS: ATORVASTATIN 20 MG TAB PO SCH (08:21)
[2021-04-12] MEDS: PANTOprazole 40 MG TAB PO SCH (08:21)
[2021-04-12] MEDS: FOLIC ACID 1 MG TAB PO SCH (08:21)
[2021-04-12] MEDS: ASPIRIN 81 MG ECTAB PO SCH (08:21)
[2021-04-12] MEDS: lisinopril 10 MG TAB PO SCH (08:21)
[2021-04-12] MEDS: cefTRIAXone SODIUM 1,000 MG in DEXTROSE 5% 50 ML IV SCH (19:32)
[2021-04-12] MEDS: TIMOLOL MALEATE 0.5% OP SOLN 5 ML BTL OPL SCH (19:34)
[2021-04-12] MEDS: BIMATOPROST 0.01% OP SOLN 2.5 ML BTL OPB SCH (19:34)
[2021-04-12] MEDS: haloperidoL 0.5 MG TAB PO SCH (21:43)
[2021-04-12] MEDS: QUEtiapine FUMARATE 25 MG TABLET PO SCH (21:43)
[2021-04-13] MEDS: hydrALAZINE HCL 25 MG TAB PO SCH ×4 (05:50→20:05)
[2021-04-13] MEDS: LEVOTHYROXINE SODIUM 75 MCG TABLET PO SCH (05:50)
--- NOTE | 2021-04-13 07:24 | Hospitalist Progress Note ---
Date of Service April 13, 2021 Assessment & Plan (1) Encephalopathy: Multifactorial : Severe agitation and altered at 1030 am 04/09-Code Stroke Alert called, No CVA, likely Recurrent UTI, Grew out E Coli in past, All Cx NGTD so far, history urge incontinence, eval April 26, Rocephin, Stop Cefepime Uncontrolled hypertension (home BP meds stopped last year secondary to low BP as per outpatient notes) Mild clinical dehydration PAFib/ hx PE/MTHFR mutation as per records on Apixaban, patient NSR history of TIA breast cancer R status post surgery papillary thyroid cancer, patient refused surgery hypothyroidism, euthyroid as of TSH 2 months ago [facility] 04/15 Stop Abx 04/15 Labs checked ROS-No Headache, No Visual Changes, No Nausea, No Vomiting, No Fever, No Chills, No Neck Pain or Stiffness, No Chest Pain, No Palpitations, No SOB, No OSORIO, No Cough, No Sputum, No Wheezing, No Abdominal Pain, No Diarrhea, No Hematemesis, No Hemoptysis, No Unexpected Weight Loss, No Flank pain, No Melena, No Hematochezia, No Frequency, No Urgency, No Burning, No Hematuria, No Rashes, No Diaphoresis. Appetite is Normal, Physical Exam Gen-AAO x 3, NAD, Afebrile Head-NCAT, EOMI, PERRLA, Anicteric Sclera, No Posterior Pharyngeal Erythema Neck-Supple, No JVD, No Thyromegaly, No Masses, No LAD, No Bruits Lungs-Clear to Auscultation Bilaterally, No Rales, No Rhonchi, No Wheezing, No Crepitus Chest-No S4, +S1, +S2, No S3, No Murmurs, No Rubs, No Gallops, No Ectopy Abdomen-Soft, Bowel Sounds Present, Non Tender, Non Distended, No Hepatomegaly, No Splenomegaly, No Palpable Masses, No Rebound, No Rigidity, No Guarding Musculoskeletal-Full Range of Motion Bilaterally, No CVAT Extremities-No Cyanosis, No Clubbing, No Edema Nuero-Cranial Nerves II-XII grossly intact, Motor WNL, DTRs WNL, Strength WNL, Non Focal Psych-Confused at times Admission and Anticipated Discharge Date Admission Date: April 08, 2021 Results & Data Results & Data ([facility]) Vital Signs (Past 12 Hours) Vital Signs Temp Pulse Resp BP Pulse Ox 04/12/21 22:26 36.6 C 73 16 135/72 97 04/12/21 20:36 110/67 04/12/21 19:30 84/44 L
[2021-04-13] MEDS: APIXABAN 2.5 MG TAB PO SCH ×2 (09:41→20:05)
[2021-04-13] MEDS: ASPIRIN 81 MG ECTAB PO SCH (09:42)
[2021-04-13] MEDS: ATORVASTATIN 20 MG TAB PO SCH (09:42)
[2021-04-13] MEDS: FOLIC ACID 1 MG TAB PO SCH (09:42)
[2021-04-13] MEDS: CYANOCOBALAMIN 500 MCG TABLET (VITAMIN B-12) PO SCH (09:42)
[2021-04-13] MEDS: lisinopril 10 MG TAB PO SCH (09:43)
[2021-04-13] MEDS: PANTOprazole 40 MG TAB PO SCH (09:43)
[2021-04-13] MEDS: cefTRIAXone SODIUM 1,000 MG in DEXTROSE 5% 50 ML IV SCH (20:04)
[2021-04-13] MEDS: haloperidoL 0.5 MG TAB PO SCH (20:05)
[2021-04-13] MEDS: QUEtiapine FUMARATE 25 MG TABLET PO SCH (20:06)
[2021-04-13] MEDS: TIMOLOL MALEATE 0.5% OP SOLN 5 ML BTL OPL SCH (20:06)
[2021-04-13] MEDS: BIMATOPROST 0.01% OP SOLN 2.5 ML BTL OPB SCH (20:06)
[2021-04-14] MEDS: hydrALAZINE HCL 25 MG TAB PO SCH ×4 (03:38→20:24)
[2021-04-14] MEDS: LEVOTHYROXINE SODIUM 75 MCG TABLET PO SCH (06:08)
[2021-04-14 07:23] LABS: Hematocrit (blood only) 36.7 % (37-47); Hemoglobin 11.8 g/dL (12.0-16.0); Mean Corpuscular Hemoglobin 30.5 pg (25-34); Mean Corpuscular Hgb Conc 32.2 g/dL (32-36); Mean Corpuscular Volume 94.8 fL (80-100); Mean Platelet Volume 9.8 fL (7.4-10.4); Platelet Count 234 K/uL (130-400); RDW Coefficient of Variation 14.6 % (11.5-14.5); RDW Standard Deviation 50.4 fL (36.4-46.3); Red Blood Count 3.87 M/uL (4.2-5.4); White Blood Count 5.19 K/uL (4.8-10.8)
--- NOTE | 2021-04-14 07:30 | Hospitalist Progress Note ---
Date of Service April 14, 2021 Assessment & Plan (1) Encephalopathy: Multifactorial : Severe agitation and altered at 1030 am 04/09-Code Stroke Alert called, No CVA, likely Recurrent UTI, Grew out E Coli in past, All Cx NGTD so far, history urge incontinence, eval April 26, Rocephin, Stop Cefepime Uncontrolled hypertension (home BP meds stopped last year secondary to low BP as per outpatient notes) Mild clinical dehydration PAFib/ hx PE/MTHFR mutation as per records on Apixaban, patient NSR history of TIA breast cancer R status post surgery papillary thyroid cancer, patient refused surgery hypothyroidism, euthyroid as of TSH 2 months ago [facility] 04/15 Stop Abx 04/15 Labs checked-No Changes ROS-No Headache, No Visual Changes, No Nausea, No Vomiting, No Fever, No Chills, No Neck Pain or Stiffness, No Chest Pain, No Palpitations, No SOB, No OSORIO, No Cough, No Sputum, No Wheezing, No Abdominal Pain, No Diarrhea, No Hematemesis, No Hemoptysis, No Unexpected Weight Loss, No Flank pain, No Melena, No Hematochezia, No Frequency, No Urgency, No Burning, No Hematuria, No Rashes, No Diaphoresis. Appetite is Normal, Physical Exam Gen-AAO x 3, NAD, Afebrile Head-NCAT, EOMI, PERRLA, Anicteric Sclera, No Posterior Pharyngeal Erythema Neck-Supple, No JVD, No Thyromegaly, No Masses, No LAD, No Bruits Lungs-Clear to Auscultation Bilaterally, No Rales, No Rhonchi, No Wheezing, No Crepitus Chest-No S4, +S1, +S2, No S3, No Murmurs, No Rubs, No Gallops, No Ectopy Abdomen-Soft, Bowel Sounds Present, Non Tender, Non Distended, No Hepatomegaly, No Splenomegaly, No Palpable Masses, No Rebound, No Rigidity, No Guarding Musculoskeletal-Full Range of Motion Bilaterally, No CVAT Extremities-No Cyanosis, No Clubbing, No Edema Nuero-Cranial Nerves II-XII grossly intact, Motor WNL, DTRs WNL, Strength WNL, Non Focal Psych-Confused at times Admission and Anticipated Discharge Date Admission Date: April 08, 2021 Results & Data Results & Data ([facility]) Vital Signs (Past 12 Hours) Vital Signs Temp Pulse Pulse Resp BP Pulse Ox 04/14/21 07:19 36.3 C L 69 18 172/85 H 97 04/14/21 03:36 36.5 C 69 18 132/75 97 04/13/21 23:55 36.4 C L 62 20 167/78 H 98 04/13/21 23:34 59 L
[2021-04-14 07:48] LABS: BUN Creatinine Ratio 70.3 (10-20); Calcium 8.8 mg/dl (8.5-10.1); Creatinine Clr Calc Pharmacy 69.4 ml/min; Est GFR (African American) 107.7 ml/min; Est GFR (Non-African American) 92.9 ml/min; Potassium 3.6 mmol/L (3.5-5.1)
[2021-04-14] MEDS: ASPIRIN 81 MG ECTAB PO SCH (07:57)
[2021-04-14] MEDS: PANTOprazole 40 MG TAB PO SCH (07:58)
[2021-04-14] MEDS: CYANOCOBALAMIN 500 MCG TABLET (VITAMIN B-12) PO SCH (07:58)
[2021-04-14] MEDS: ATORVASTATIN 20 MG TAB PO SCH (07:58)
[2021-04-14] MEDS: FOLIC ACID 1 MG TAB PO SCH (07:58)
[2021-04-14] MEDS: lisinopril 10 MG TAB PO SCH (07:59)
[2021-04-14] MEDS: APIXABAN 2.5 MG TAB PO SCH ×2 (07:59→20:23)
[2021-04-14] MEDS: QUEtiapine FUMARATE 25 MG TABLET PO SCH (20:20)
[2021-04-14] MEDS: BIMATOPROST 0.01% OP SOLN 2.5 ML BTL OPB SCH (20:21)
[2021-04-14] MEDS: haloperidoL 0.5 MG TAB PO SCH (20:21)
[2021-04-14] MEDS: TIMOLOL MALEATE 0.5% OP SOLN 5 ML BTL OPL SCH (20:21)
[2021-04-15] MEDS: hydrALAZINE HCL 25 MG TAB PO SCH ×4 (03:26→19:48)
[2021-04-15] MEDS: LEVOTHYROXINE SODIUM 75 MCG TABLET PO SCH (06:41)
[2021-04-15] MEDS: PANTOprazole 40 MG TAB PO SCH (07:28)
[2021-04-15] MEDS: lisinopril 10 MG TAB PO SCH (07:28)
[2021-04-15] MEDS: APIXABAN 2.5 MG TAB PO SCH ×2 (07:28→19:50)
[2021-04-15] MEDS: ASPIRIN 81 MG ECTAB PO SCH (07:29)
[2021-04-15] MEDS: ATORVASTATIN 20 MG TAB PO SCH (07:29)
[2021-04-15] MEDS: FOLIC ACID 1 MG TAB PO SCH (07:29)
[2021-04-15] MEDS: CYANOCOBALAMIN 500 MCG TABLET (VITAMIN B-12) PO SCH (07:30)
--- NOTE | 2021-04-15 08:32 | Hospitalist Progress Note ---
Date of Service April 15, 2021 Assessment & Plan (1) Encephalopathy: Multifactorial : Severe agitation and altered at 1030 am 04/09-Code Stroke Alert called, No CVA, likely Recurrent UTI, Grew out E Coli in past, All Cx NGTD so far, history urge incontinence, eval April 26, Rocephin, Stop Cefepime Uncontrolled hypertension (home BP meds stopped last year secondary to low BP as per outpatient notes) Mild clinical dehydration PAFib/ hx PE/MTHFR mutation as per records on Apixaban, patient NSR history of TIA breast cancer R status post surgery papillary thyroid cancer, patient refused surgery hypothyroidism, euthyroid as of TSH 2 months ago [facility] today Stop Abx today Labs checked-No Changes ROS-No Headache, No Visual Changes, No Nausea, No Vomiting, No Fever, No Chills, No Neck Pain or Stiffness, No Chest Pain, No Palpitations, No SOB, No OSORIO, No Cough, No Sputum, No Wheezing, No Abdominal Pain, No Diarrhea, No Hematemesis, No Hemoptysis, No Unexpected Weight Loss, No Flank pain, No Melena, No Hematochezia, No Frequency, No Urgency, No Burning, No Hematuria, No Rashes, No Diaphoresis. Appetite is Normal, Physical Exam Gen-AAO x 3, NAD, Afebrile Head-NCAT, EOMI, PERRLA, Anicteric Sclera, No Posterior Pharyngeal Erythema Neck-Supple, No JVD, No Thyromegaly, No Masses, No LAD, No Bruits Lungs-Clear to Auscultation Bilaterally, No Rales, No Rhonchi, No Wheezing, No Crepitus Chest-No S4, +S1, +S2, No S3, No Murmurs, No Rubs, No Gallops, No Ectopy Abdomen-Soft, Bowel Sounds Present, Non Tender, Non Distended, No Hepatomegaly, No Splenomegaly, No Palpable Masses, No Rebound, No Rigidity, No Guarding Musculoskeletal-Full Range of Motion Bilaterally, No CVAT Extremities-No Cyanosis, No Clubbing, No Edema Nuero-Cranial Nerves II-XII grossly intact, Motor WNL, DTRs WNL, Strength WNL, Non Focal Psych-Confused at times, Hallucinations at times Admission and Anticipated Discharge Date Admission Date: April 08, 2021 Results & Data Results & Data ([facility]) Vital Signs (Past 12 Hours) Vital Signs Temp Pulse Pulse Resp BP Pulse Ox 04/15/21 07:42 36.4 C L 68 18 138/76 98 04/15/21 03:30 36.3 C L 63 20 178/78 H 98 04/15/21 02:37 58 L 04/14/21 23:13 36.5 C 62 20 171/74 H 98
[2021-04-15 15:03] VITALS: TEMP 97.3
[2021-04-15] MEDS: QUEtiapine FUMARATE 25 MG TABLET PO SCH (19:47)
[2021-04-15] MEDS: haloperidoL 0.5 MG TAB PO SCH (19:48)
[2021-04-15] MEDS: TIMOLOL MALEATE 0.5% OP SOLN 5 ML BTL OPL SCH (19:49)
[2021-04-15] MEDS: BIMATOPROST 0.01% OP SOLN 2.5 ML BTL OPB SCH (19:49)
[2021-04-16] MEDS: hydrALAZINE HCL 25 MG TAB PO SCH ×2 (04:05→08:22)
[2021-04-16] MEDS: LEVOTHYROXINE SODIUM 75 MCG TABLET PO SCH (06:12)
[2021-04-16] MEDS: ASPIRIN 81 MG ECTAB PO SCH (08:21)
[2021-04-16] MEDS: APIXABAN 2.5 MG TAB PO SCH (08:21)
[2021-04-16] MEDS: ATORVASTATIN 20 MG TAB PO SCH (08:22)
[2021-04-16] MEDS: FOLIC ACID 1 MG TAB PO SCH (08:22)
[2021-04-16] MEDS: PANTOprazole 40 MG TAB PO SCH (08:22)
[2021-04-16] MEDS: CYANOCOBALAMIN 500 MCG TABLET (VITAMIN B-12) PO SCH (08:22)
[2021-04-16] MEDS: lisinopril 10 MG TAB PO SCH (08:22)
[2021-04-16 08:42] VITALS: BP 136/83; O2SAT 97
[2021-04-16] MEDS: ACETAMINOPHEN 325 MG TAB PO PRN (09:42)
[2021-04-16 12:56] VITALS: PULSE 92
== END 2021-04-16 14:47 | DRG 689 ==
LOC: ED 21:07 → SUATTDRO 04-08 02:15 → 2W 04-08 02:15

== ENCOUNTER 2021-07-02 17:41 | Inpatient (IN) ==
--- NOTE | 2021-07-02 20:00 | Emergency Department Note ---
Impression & Plan Hallucinations ED Provider Note Name: JAISON FULLER Age: 85 Sex: F Arrives Via: Walk-In Informant: Patient, Daughter ED Provider: Pedro Bishop MD Chief Complaint: confusion Impression: Hallucinations Medical Decision Makin yr old with waxing/waning hallucinations over the last few months, leading to hospitalization over the summer with improvement after starting on Risperdal. Symptoms started returning last week and she was treated with abx for UTI with initially improvement. Over last 36 hours worsening hallucinations ago. Episodes of confusion, though clear enough to recall past and future events and know where she is. She often gets lost in what appears to be a visual hallucination, as well as referring to herself in the 3rd person. Straight cath UA is not consistent with infection. Meds don't seem to be the cause. No recent falls, and while on Eliquis, she just had CT head last week thus held off on repeat at this time. I would suspect this is neuro-psych issue however given acuity I do not feel that placement in geriatric psych facility would be reasonable/feasible without some further work-up and evaluation. Daughter agrees with this plan, but given inability to return to [facility] and need for further work-up hospitalist consulted for further evaluation. Prior Medical Record and Triage/Nursing Notes reviewed by Me Additional history obtained from chart and daugther Differentials:Infection, hypoglycemia, electrolyte abnormalities, overdose, toxicologic, cardiac sources, intracerebral event, neurologic, trauma, as well as other pathologies. Vital Signs: reviewed and remarkable for no significant abnormalities Labs:Reviewed and remarkable for no significant abnormalities Imaging:X ray results are stated below per my interpretation: Chest: 1 view: No infiltrate, no effusion, normal cardiac border. Consults:Dr Marika Manrique Hospitalist Plan: Disposition:Hospitalization. Condition: Good History of Present Illness:85 yr old female arrives for evaluation of hallucinations. Patient with episodes of hallucinations several times over the last year, including multiple episodes of hospitalization. Frequently associated with UTIs as well as concern may be TIA related. She had been hospi talized 2 weeks ago and was doing much better the last few days until yesterday. Per Nursing staff she was slightly confused and didn't seem herself. This morning awoke and was somewhat distant. She went to PCP appointment and has had gradually worsening hallucinations since. She has been picking at things on the bed as well as trying to climb out of windows thinking they are staircases. She is currently on macrobid for uti prophylaxis and is on risperdal based on previous episodes of hallucinations. Over the last few weeks no falls, injuries nor trauma and had CT head done last week during admission which was negative. She has had no fevers, vomiting, syncope, chest pain, nausea, vomiting, abdominal pain, leg swelling, rashes, nor other symptoms. Denies any current headache, neck pain nor others. No medications prior to arrival. She is chronically on eliquis ROS: See above HPI for pertinent positives & negatives. A total of 10 systems reviewed and were otherwise negative. Past Medical History:See Below Past Surgical History:See Below Family History:See Below Social History:See Below Home Medications:See Below Allergies:See Below Vitals:Blood Pressure: 178/89, Pulse 71, RR 18, T 36.6C, O2 98% on RA Physical Exam: GENERAL: Patient is elderly/fraile appearing and in no acute distress. Periodically picking at things that are not there or looking at things in room that aren't there. Talking in 3rd person and distant. EYES: No scleral icterus, unremarkable pupils. ENT: Mucous membranes moist, no nasal congestion. NECK: No masses appreciated, nomeningismus, trachea is midline. RESPIRATORY: No dyspnea. Clear to auscultation and equal bilaterally. No wheeze, no rhonchi. CARDIOVASCULAR: Regular rate and rhythm.No murmurs, rubs, gallops appreciated. GASTROINTESTINAL: Abdomen soft, non-tender, no peritonitis.Bowel sounds positive.No masses appreciated. BACK: No midline tenderness, no CVA tenderness EXTREMITIES: Normal motion all extremities, no cyanosis, no edema. NEUROLOGIC: Alert and oriented to place though hallucinating and looking at things that are not there, no acute motor or sensory deficits, no focal weakness, cranial nerves grossly intact. SKIN: No rash, no jaundice, no diaphoresis. PSYCH: Distant and hallucinating GCS: 15 ED Course: Times/Reassessments: stable, no distress, and comfortable Pedro Bishop MD Past Med/Surg History Medical History Acute confusion Atrial fibrillation Atrial fibrillation with RVR Central retinal vein occlusion of right eye Dyslipidemia History of breast cancer "intraductal carcinoma left breast, s/p lumpectomy" History of osteoporosis History of pulmonary embolism HTN (hypertension) Hx of MTHFR mutation LUE weakness Numbness of left hand Papillary carcinoma of thyroid SBO (small bowel obstruction) Small bowel obstruction UGIB (upper gastrointestinal bleed) Uterine prolapse UTI (urinary tract infection) Surgical History H/O oophorectomy History of bladder surgery History of cataract surgery History of hysterectomy S/P exploratory laparotomy lysis of adhesions Status post partial mastectomy "left breast, DCIS" Family History Father Stroke Hypertension Mother Heart disease Social History Smoking Status: Never smoker Second Hand Exposure: No; Hx Alcohol Use: No Hx Substance Use: No Preferred Language: Luxembourgish Communication Ability: Effective Visual Impairment: Limited Hearing Ability: Normal Threader Required: No Beliefs That Will Affect Care: None marital status: / Current Living Situation: [facility] Current Living Situation Comment: cargivers 3x week, daughter lives next door current occupational status: retired Feels Safe at Home: Yes Safety Concerns: Feels Safe At This Time Assistive Devices: Glasses and Walker Allergies Allergies Allergy/AdvReac Type Severity Reaction Status Date / Time tetanus toxoid, adsorbed Allergy Mild SWELLING Verified 07/02/21 20:41 AND REDNESS sulfamethoxazole AdvReac Dizziness Verified 07/02/21 20:41 [From Bactrim] trimethoprim [From Bactrim] AdvReac Dizziness Verified 07/02/21 20:41 Home Meds Home Medications Medication Instructions Recorded Confirmed cholecalciferol (vitamin D3) 25 1,000 unit PO QAM #0 03/21/17 07/02/21 mcg (1,000 unit) capsule folic acid 1 mg tablet 1 mg PO QAM #0 03/21/17 07/02/21 atorvastatin 20 mg tablet (Lipitor) 20 mg PO QAM #0 tab 02/11/18 07/02/21 omeprazole 20 mg capsule,delayed 20 mg PO QAM #0 02/11/18 07/02/21 release apixaban 2.5 mg tablet (Eliquis) 2.5 mg PO BID #0 tab 03/29/18 07/02/21 cyanocobalamin (vitamin B-12) 2,000 mcg PO QAM #0 03/29/18 07/02/21 1,000 mcg capsule bimatoprost 0.01 % eye drops 1 drp OPB HS 10/11/18 07/02/21 (Lumigan) levothyroxine 75 mcg tablet 75 mcg PO QAM 03/26/19 07/02/21 (Synthroid) psyllium See Rx Instructions .ROUTE .COMPLEX 12/12/20 07/02/21 timolol maleate 0.5 % eye drops 1 drp OPL QAM 12/12/20 07/02/21 nitrofurantoin macrocrystal 50 mg 50 mg PO HS 06/22/21 07/02/21 capsule risperidone 0.5 mg tablet 0.5 mg PO HS 06/22/21 07/02/21 acetaminophen 325 mg tablet 650 mg PO QID PRN MDD 3g 07/02/21 07/02/21 aspirin 81 mg chewable tablet 81 mg PO QAM 07/02/21 07/02/21 (Aspirin Children[facility]) dextran 70-hypromellose eye drops 1 drp OPB .EVERY 2 HOURS W/A 07/02/21 07/02/21 in a dropperette (Artificial Tears (PF)) Previous Rx's Medication Instructions Recorded gabapentin 100 mg capsule 200 mg PO HS #60 cap 10/15/18 Results & Data (ED) Vital Signs Vital Signs - 24 hr 07/02/21 17:55 07/02/21 21:04 07/02/21 22:43 Temperature 36.6 C Temperature Source Temporal Artery Scan Pulse Rate 71 Pulse Rate [Finger] 65 77 Respiratory Rate 18 18 18 Respiratory Effort / Characteristics Non-Labored Spontaneous Respiratory Depth Normal Respiratory Pattern Regular Blood Pressure 178/89 H Blood Pressure [Right Arm] 162/101 H 151/79 H Blood Pressure Mean 118 Blood Pressure Mean [Right Arm] 121 103 Blood Pressure Position [Right Arm] Sitting Sitting Pulse Oximetry 98 98 99 Oxygen Delivery Method Room Air Room Air Sepsis Recent Fever Within 48 Hours No Sepsis New/Unexplained Change in Mental Status No Sepsis Action Taken by Nursing No Action Required Laboratory Data Result diagrams: 07/03/21 08:58 07/03/21 08:58 Lab Results 07/02/21 07/02/21 07/02/21 Range/Units 20:03 20:03 20:06 WBC (4.8-10.8) K/uL RBC (4.2-5.4) M/uL Hgb (12.0-16.0) g/dL Hct (37-47) % MCV (80-100) fL MCH (25-34) pg MCHC (32-36) g/dL RDW Std Deviation (36.4-46.3) fL RDW Coeff of Bassem (11.5-14.5) % Plt Count (130-400) K/uL MPV (7.4-10.4) fL Immature Gran % (Auto) % Neut % (Auto) % Lymph % (Auto) % Smyth % (Auto) % Eos % (Auto) % Baso % (Auto) % Neut # (Auto) (1.4-6.5) K/uL Lymph # (Auto) (1.2-3.4) K/uL Smyth # (Auto) (0.11-0.59) K/uL Eos # (Auto) (0-0.5) K/uL Baso # (Auto) (0-0.2) K/uL Immature Gran # (Auto) (0.00-0.02) K/uL Sodium 136 (136-145) mmol/L Potassium 3.8 (3.5-5.1) mmol/L Chloride 100 (98-107) mmol/L Carbon Dioxide 30 (21-32) mmol/L Anion Gap 6.0 (3-11) BUN 18 (7-18) mg/dl Creatinine 0.59 L (0.6-1.2) mg/dl Est Cr Clr Drug Dosing Not Reportable Est GFR ( Amer) 95.5 ml/min Est GFR (Non-Af Amer) 82.4 ml/min BUN/Creatinine Ratio 30.2 H (10-20) Glucose 144 H (70-99) mg/dl Calcium 8.7 (8.5-10.1) mg/dl Magnesium 1.8 (1.8-2.4) mg/dl Total Bilirubin 0.4 (0.2-1) mg/dl Direct Bilirubin 0.2 (0-0.2) mg/dl AST 16 (15-37) U/L ALT 20 (12-78) U/L Alkaline Phosphatase 136 H (45-117) U/L Troponin I < 0.015 (0-0.045) ng/ml Total Protein 7.6 (6.4-8.2) gm/dl Albumin 3.4 (3.4-5.0) gm/dl TSH 0.807 (0.300-4.500) uIu/ml Urine Color Urine Appearance (Clear) Urine pH (4.5-7.5) Ur Specific [place] (1.000-1.030) Urine Protein (Negative) Urine Glucose (UA) (Negative) Urine Ketones (Negative) Urine Blood (Negative) Urine Nitrite (Negative) Urine Bilirubin (Negative) Urine Urobilinogen (Negative) Ur Leukocyte Esterase (Negative) Urine WBC (Auto) (0-5) /hpf Urine RBC (Auto) (0-4) /hpf U Hyaline Cast (Auto) (0-5) /lpf U Epithel Cells (Auto) (0-5) /lpf Urine Bacteria (Auto) (Negative) COVID-19 Eval Order Covid19 at [facility] SARS-CoV-2 (PCR) NEGATIVE (Negative) 07/02/21 07/02/21 Range/Units 20:06 20:31 WBC 7.13 (4.8-10.8) K/uL RBC 4.23 (4.2-5.4) M/uL Hgb 12.9 (12.0-16.0) g/dL Hct 40.4 (37-47) % MCV 95.5 (80-100) fL MCH 30.5 (25-34) pg MCHC 31.9 L (32-36) g/dL RDW Std Deviation 47.8 H (36.4-46.3) fL RDW Coeff of Bassem 13.7 (11.5-14.5) % Plt Count 277 (130-400) K/uL MPV 9.4 (7.4-10.4) fL Immature Gran % (Auto) 0.1 % Neut % (Auto) 81.3 % Lymph % (Auto) 8.1 % Smyth % (Auto) 9.4 % Eos % (Auto) 1.0 % Baso % (Auto) 0.1 % Neut # (Auto) 5.79 (1.4-6.5) K/uL Lymph # (Auto) 0.58 L (1.2-3.4) K/uL Smyth # (Auto) 0.67 H (0.11-0.59) K/uL Eos # (Auto) 0.07 (0-0.5) K/uL Baso # (Auto) 0.01 (0-0.2) K/uL Immature Gran # (Auto) 0.01 (0.00-0.02) K/uL Sodium (136-145) mmol/L Potassium (3.5-5.1) mmol/L Chloride (98-107) mmol/L Carbon Dioxide (21-32) mmol/L Anion Gap (3-11) BUN (7-18) mg/dl Creatinine (0.6-1.2) mg/dl Est Cr Clr Drug Dosing Est GFR ( Amer) ml/min Est GFR (Non-Af Amer) ml/min BUN/Creatinine Ratio (10-20) Glucose (70-99) mg/dl Calcium (8.5-10.1) mg/dl Magnesium (1.8-2.4) mg/dl Total Bilirubin (0.2-1) mg/dl Direct Bilirubin (0-0.2) mg/dl AST (15-37) U/L ALT (12-78) U/L Alkaline Phosphatase (45-117) U/L Troponin I (0-0.045) ng/ml Total Protein (6.4-8.2) gm/dl Albumin (3.4-5.0) gm/dl TSH (0.300-4.500) uIu/ml Urine Color Yellow Urine Appearance Clear (Clear) Urine pH 6.5 (4.5-7.5) Ur Specific [place] 1.018 (1.000-1.030) Urine Protein Negative (Negative) Urine Glucose (UA) Negative (Negative) Urine Ketones Negative (Negative) Urine Blood Trace H (Negative) Urine Nitrite Negative (Negative) Urine Bilirubin Negative (Negative) Urine Urobilinogen Negative (Negative) Ur Leukocyte Esterase Negative (Negative) Urine WBC (Auto) 1-5 (0-5) /hpf Urine RBC (Auto) 5-10 H (0-4) /hpf U Hyaline Cast (Auto) 1-5 (0-5) /lpf U Epithel Cells (Auto) 0-5 (0-5) /lpf Urine Bacteria (Auto) Negative (Negative) COVID-19 Eval Order SARS-CoV-2 (PCR) (Negative) Administered Medications Apixaban (Apixaban 2.5 Mg Tab) 2.5 mg PO BID [facility] Stop: 08/02/21 02:59 Last Admin: 07/03/21 03:22 Dose: 2.5 mg Documented by: [id number] Aspirin (Aspirin 81 Mg Chew) [facility] Stop: 08/02/21 08:59 Last Admin: 07/03/21 08:41 Dose: 81 mg Documented by: [id number] Atorvastatin Calcium (Atorvastatin 20 Mg Tab) [facility] [place] [facility] Stop: 08/02/21 08:59 Last Admin: 07/03/21 08:41 Dose: 20 mg Documented by: [id number] Bimatoprost (Bimatoprost 0.01% Op Soln 2.5 Ml Btl) 1 drops OPB HS [facility] Stop: 08/02/21 02:59 Last Admin: 07/03/21 03:22 Dose: 1 drops Documented by: [id number] Folic Acid (Folic Acid 1 Mg Tab) 1 mg PO QAM [facility] Stop: 08/02/21 08:59 Last Admin: 07/03/21 08:41 Dose: 1 mg Documented by: [id number] Parenteral Electrolytes (Normosol-R) 1,000 mls @ 50 mls/hr IV .Q20H ONE Stop: 07/03/21 18:14 Last Admin: 07/02/21 22:38 Dose: 50 mls/hr Documented by: [id number] Levothyroxine Sodium (Levothyroxine Sodium 75 Mcg Tablet) [facility]: 08/02/21 06:29 Last Admin: 07/03/21 05:46 Dose: 75 mcg Documented by: [id number] Pantoprazole Sodium (Pantoprazole 40 Mg Tab) [facility] [place] [facility]; Protocol Stop: 08/02/21 08:59 Last Admin: 07/03/21 08:41 Dose: 40 mg Documented by: [id number] Psyllium Hydrophilic Mucilloid (Psyllium 58.6% Powder Packet) 1 pkt PO DAILY [facility] Stop: 08/02/21 08:59 Last Admin: 07/03/21 08:41 Dose: 1 pkt Documented by: [id number] Risperidone (Risperidone 0.5 Mg Tablet) 0.5 mg PO HS [facility] Stop: 08/02/21 02:59 Last Admin: 07/03/21 05:45 Dose: Not Given Documented by: [id number] Timolol Maleate (Timolol Maleate 0.5% Op Soln 5 Ml Btl) 1 drops OPL QAM [facility] Stop: 08/02/21 08:59 Last Admin: 07/03/21 08:41 Dose: 1 drops Documented by: [id number] Discontinued Medications Lisinopril (Lisinopril 2.5 Mg Tab) 2.5 mg PO ONE ONE Stop: 07/02/21 21:33 Last Admin: 07/02/21 21:49 Dose: 2.5 mg Documented by: [id number] Imaging Data Radiologist's Impression: Head CT 07/02/21 21:33 CT OF THE HEAD WITHOUT CONTRAST CLINICAL HISTORY: Altered mental status. COMPARISON STUDY: Head CT June 22, 2021. CT DOSE: 537.48 mGy.cm TECHNIQUE: Helical axial images of the head were obtained without IV contrast. Automated exposure control was utilized for the study. A dose lowering technique was utilized adhering to the principles of ALARA. FINDINGS: No acute intracranial hemorrhage, midline shift or mass effect is present. White matter hypodensity suggests small vessel disease. The ventricular system is unremarkable. The basal cisterns are patent. No extra-axial collections are present. There are no findings to suggest acute dural sinus thrombosis or acute territorial infarct. No significant calvarial abnormalities are present. Visualized portions of the sinuses and mastoid air cells are clear. IMPRESSION: No acute intracranial findings. No change in appearance of the brain. ACT 112: Negative or not required by law. Electronically signed by: Dallin Cardona M.D. 07/03/2021 6:51 AM Discharge Plan Visit Data Chief Complaint: Altered Mental Status Stated Complaint: CONFUSION ED Provider: Pedro Bishop Discharge Problem: Hallucinations Patient Disposition: Admitted As Inpatient Discharge Instructions Interventions: ED Discharge Assessment Last Done: 07/03/21 01:00
[2021-07-02 20:17] LABS: Basophils # (auto) 0.01 K/uL (0-0.2); Basophils % (auto) 0.1 %; Eosinophils # (auto) 0.07 K/uL (0-0.5); Hematocrit (blood only) 40.4 % (37-47); Hemoglobin 12.9 g/dL (12.0-16.0); Immature Granulocytes # (auto) 0.01 K/uL (0.00-0.02); Immature Granulocytes % (auto) 0.1 %; Lymphocytes # (auto) 0.58 K/uL (1.2-3.4); Lymphocytes % (auto) 8.1 %; Mean Corpuscular Hemoglobin 30.5 pg (25-34); Mean Corpuscular Hgb Conc 31.9 g/dL (32-36); Mean Corpuscular Volume 95.5 fL (80-100); Mean Platelet Volume 9.4 fL (7.4-10.4); Monocytes # (auto) 0.67 K/uL (0.11-0.59); Monocytes % (auto) 9.4 %; Neutrophils # (auto) 5.79 K/uL (1.4-6.5); Neutrophils % (auto) 81.3 %; Platelet Count 277 K/uL (130-400); RDW Coefficient of Variation 13.7 % (11.5-14.5); RDW Standard Deviation 47.8 fL (36.4-46.3); Red Blood Count 4.23 M/uL (4.2-5.4); White Blood Count 7.13 K/uL (4.8-10.8)
[2021-07-02 20:37] LABS: Alanine Aminotransferase 20 U/L (12-78); Albumin Level 3.4 gm/dl (3.4-5.0); Aspartate Aminotransferase 16 U/L (15-37); BUN Creatinine Ratio 30.2 (10-20); Blood Urea Nitrogen 18 mg/dl (7-18); Calcium 8.7 mg/dl (8.5-10.1); Carbon Dioxide 30 mmol/L (21-32); Chloride 100 mmol/L (98-107); Est GFR (African American) 95.5 ml/min; Est GFR (Non-African American) 82.4 ml/min; Glucose 144 mg/dl (70-99); Magnesium 1.8 mg/dl (1.8-2.4); Potassium 3.8 mmol/L (3.5-5.1); Sodium 136 mmol/L (136-145)
[2021-07-02 20:40] LABS: Appearance Urine Clear (Clear); Bacteria Urine Automated Negative (Negative); Bilirubin Urine Negative (Negative); Blood Urine Trace (Negative); Color Urine Yellow; Epithelial Cell Urine Auto 0-5 /lpf (0-5); Glucose Urine UA Negative (Negative); Ketones Urine Negative (Negative); Leukocyte Esterase Urine Negative (Negative); Nitrite Urine Negative (Negative); Protein Urine Negative (Negative); Specific Gravity Urine 1.018 (1.000-1.030); Urobilinogen Urine Negative (Negative); pH Urine 6.5 (4.5-7.5)
--- NOTE | 2021-07-02 20:47 | XRay Report ---
XR chest 1V portable HISTORY: 85 years-old Female worsening hallucinations acutely altered mental status COMPARISON: Chest radiograph 06/22/2021, CTA neck 04/07/2021 TECHNIQUE: Portable AP view of the chest FINDINGS: Cardiac silhouette is enlarged. Chronic right hemidiaphragmatic elevation with chronic reticular inte rstitial coarsening, most pronounced in the upper lung zones. No pneumothorax, pleural effusion or ov ert pulmonary edema. Associated bronchiectasis is better seen on comparison CTA of the neck. Patient is mildly rotated. Degenerative changes of the shoulders and spine.. IMPRESSION: Chronic findings as above without acute process. ACT 112: Negative or not required by law. The above report was generated using voice recognition software. It may contain grammatical, syntax o r spelling errors. Electronically signed by: Kobi Helton M.D. 07/02/2021 8:45 PM
[2021-07-02 20:48] LABS: Alkaline Phosphatase 136 U/L (45-117); Bilirubin Direct 0.2 mg/dl (0-0.2); Bilirubin,Total 0.4 mg/dl (0.2-1); Thyroid Stimulating Hormone 0.807 uIu/ml (0.300-4.500); Total Protein 7.6 gm/dl (6.4-8.2); Troponin I < 0.015 ng/ml (0-0.045)
[2021-07-02] MEDS ORDERED: lisinopril 2.5 MG TAB PO ONE (21:32)
[2021-07-02] MEDS ORDERED: NORMOSOL-R 1,000 ML IV ONE (22:15)
--- NOTE | 2021-07-02 22:41 | History & Physical Report ---
Date of Service July 02, 2021 Assessment & Plan (1) Encephalopathy: Plan: Encephalopathy Worsening visual hallucinations, hx Hay Bonnet syndrome, vascular dementia as per records Patient current personal care facility residence at the [facility] may not be safe environment for her given recurrent hallucinations leading to multiple ER visits followed by hospital confinements this year. Multifactorial : Uncontrolled hypertension (home BP meds stopped last year secondary to low BP as per outpatient notes) Mild clinical dehydration PAFib/ hx PE/MTHFR mutation as per records on Apixaban, patient NSR history of TIA breast cancer R status post surgery papillary thyroid cancer, patient refused surgery Hyperglycemia secondary to prediabetes, hemoglobin A1c of 6.19 November 2020 hypothyroidism, euthyroid as of today's TSH OBS Medical telemetry Continue Risperdal Psych consult follow-up eval for worsening visual hallucinations Gentle IV hydration Resume prior home lisinopril Rx PT OT eval Social service RE discharge planning DVT prophylaxis. Chrissy Full code Patient requests for her daughter to be updated of plan of care. Ms. Sumit Johnson, contact #[phone]. Text document was generated using [employer] voice recognition software. It may contain grammatical or spelling errors. Kindly contact undersigned for clarification of any documentation item in question. History of Present Illness Chief Complaint: Hallucinations getting worse Primary Care Provider: [facility] History obtained from patient, family, and records. Patient is a fair historian. 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 Recent confinement April 10-2020 for altered mental status secondary to UTI. Patient discharged to [facility] rehab where she stayed for 3 weeks before transitioning back personal care facility residence ([facility]). Patient started by geriatric psychiatry (Dr. Doyle of [facility]) on Risperidone for delirium/hallucinations during rehab stay as per documentation. Recent ER visit 06/22/21 for hallucinations attributed to E. coli UTI. Patient discharged on Keflex course. Yesterday, patient noted to be confused at resident. Rambling gibberish as per records. No complaints of urinary symptoms. Outpatient UA normal. Worsening hallucinations this morning, taking up things at bed and trying to climb out of windows taking they are staircases as per records. Patient denies chest pain, S OB, headache, abdominal pain. Patient brought to the ER for evaluation. Patient told nurse a dog was eating her turkey sandwich at the ER. MEDICAL HISTORY: As above. SURGERIES: hysterectomy, urologic procedures, ex-lap, mastectomy right breast, oophorectomy, sling repair. FAMILY HISTORY: There is a family history of breast cancer, stroke. PERSONAL SOCIAL HISTORY: Nonsmoker. 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 Personal care facility residence Allergies Allergy/AdvReac Type Severity Reaction Status Date / Time tetanus toxoid, adsorbed Allergy Mild SWELLING Verified 07/02/21 20:41 AND REDNESS sulfamethoxazole AdvReac Dizziness Verified 07/02/21 20:41 [From Bactrim] trimethoprim [From Bactrim] AdvReac Dizziness Verified 07/02/21 20:41 Home Medications Medication Instructions Recorded Confirmed Type cholecalciferol (vitamin D3) 25 1,000 unit PO QAM #0 03/21/17 07/02/21 History mcg (1,000 unit) capsule folic acid 1 mg tablet 1 mg PO QAM #0 03/21/17 07/02/21 History atorvastatin 20 mg tablet (Lipitor) 20 mg PO QAM #0 tab 02/11/18 07/02/21 History omeprazole 20 mg capsule,delayed 20 mg PO QAM #0 02/11/18 07/02/21 History release apixaban 2.5 mg tablet (Eliquis) 2.5 mg PO BID #0 tab 03/29/18 07/02/21 History cyanocobalamin (vitamin B-12) 2,000 mcg PO QAM #0 03/29/18 07/02/21 History 1,000 mcg capsule bimatoprost 0.01 % eye drops 1 drp OPB HS 10/11/18 07/02/21 History (Lumigan) gabapentin 100 mg capsule 200 mg PO HS #60 cap 10/15/18 07/02/21 Rx levothyroxine 75 mcg tablet 75 mcg PO QAM 03/26/19 07/02/21 History (Synthroid) psyllium See Rx Instructions .ROUTE .COMPLEX 12/12/20 07/02/21 History timolol maleate 0.5 % eye drops 1 drp OPL QAM 12/12/20 07/02/21 History nitrofurantoin macrocrystal 50 mg 50 mg PO HS 06/22/21 07/02/21 History capsule risperidone 0.5 mg tablet 0.5 mg PO HS 06/22/21 07/02/21 History acetaminophen 325 mg tablet 650 mg PO QID PRN MDD 3g 07/02/21 07/02/21 History aspirin 81 mg chewable tablet 81 mg PO QAM 07/02/21 07/02/21 History (Aspirin Childrens) dextran 70-hypromellose eye drops 1 drp OPB .EVERY 2 HOURS W/A 07/02/21 07/02/21 History in a dropperette (Artificial Tears (PF)) Past Med/Surg History Medical History Acute confusion Atrial fibrillation Atrial fibrillation with RVR Central retinal vein occlusion of right eye Dyslipidemia History of breast cancer "intraductal carcinoma left breast, s/p lumpectomy" History of osteoporosis History of pulmonary embolism HTN (hypertension) Hx of MTHFR mutation LUE weakness Numbness of left hand Papillary carcinoma of thyroid SBO (small bowel obstruction) Small bowel obstruction UGIB (upper gastrointestinal bleed) Uterine prolapse UTI (urinary tract infection) Surgical History H/O oophorectomy History of bladder surgery History of cataract surgery History of hysterectomy S/P exploratory laparotomy lysis of adhesions Status post partial mastectomy "left breast, DCIS" Family History Father Stroke Hypertension Mother Heart disease Social History Smoking Status: Never smoker Second Hand Exposure: No; Hx Alcohol Use: No Hx Substance Use: No Preferred Language: Haitian Communication Ability: Effective Visual Impairment: Limited Hearing Ability: Normal Lead Instructor/Flight Attendant Required: No Beliefs That Will Affect Care: None marital status: / Current Living Situation: Alone Current Living Situation Comment: cargivers 3x week, daughter lives next door current occupational status: retired Feels Safe at Home: Yes Assistive Devices: Glasses and Walker Review of Systems Review of Systems: As per HPI, all 10 systems reviewed, all other ROS negative Physical Exam Physical Exam: GENERAL: comfortable, slightly anxious, slightly hard of hearing, oriented to d ay and month, visual hallucinations during encounter (seen multiple people in the room), no respiratory distress SKIN: Normal color, warm HEENT: Kerby palpebral conjunctivae, no ptosis, dry buccal mucosa NECK : Supple, no tenderness CHEST : CTA, no tenderness HEART : RRR, no obvious murmurs ABDOMEN: Some distention, nontender EXTREMITIES : No LE swelling/tenderness, no other conspicuous deformities noted NEUROLOGIC : Coherent, no facial asymmetry, slightly hard of hearing, no other gross focality Results & Data Results & Data ([facility]) Vital Signs (Past 12 Hours) Vital Signs Temp Pulse Pulse Resp BP BP Pulse Ox 07/02/21 21:04 65 18 162/101 H 98 07/02/21 17:55 36.6 C 71 18 178/89 H 98 Laboratory Results Laboratory Results WBC 7.13 K/uL (4.8-10.8) 07/02/21 20:06 RBC 4.23 M/uL (4.2-5.4) 07/02/21 20:06 Hgb 12.9 g/dL (12.0-16.0) 07/02/21 20:06 Hct 40.4 % (37-47) 07/02/21 20:06 MCV 95.5 fL (80-100) 07/02/21 20:06 MCH 30.5 pg (25-34) 07/02/21 20:06 MCHC 31.9 g/dL (32-36) L 07/02/21 20:06 RDW Std Deviation 47.8 fL (36.4-46.3) H 07/02/21 20:06 RDW Coeff of Bassem 13.7 % (11.5-14.5) 07/02/21 20:06 Plt Count 277 K/uL (130-400) 07/02/21 20:06 MPV 9.4 fL (7.4-10.4) 07/02/21 20:06 Immature Gran % (Auto) 0.1 % 07/02/21 20:06 Neut % (Auto) 81.3 % 07/02/21 20:06 Lymph % (Auto) 8.1 % 07/02/21 20:06 Bee % (Auto) 9.4 % 07/02/21 20:06 Eos % (Auto) 1.0 % 07/02/21 20:06 Baso % (Auto) 0.1 % 07/02/21 20:06 Neut # (Auto) 5.79 K/uL (1.4-6.5) 07/02/21 20:06 Lymph # (Auto) 0.58 K/uL (1.2-3.4) L 07/02/21 20:06 Bee # (Auto) 0.67 K/uL (0.11-0.59) H 07/02/21 20:06 Eos # (Auto) 0.07 K/uL (0-0.5) 07/02/21 20:06 Baso # (Auto) 0.01 K/uL (0-0.2) 07/02/21 20:06 Immature Gran # (Auto) 0.01 K/uL (0.00-0.02) 07/02/21 20:06 Sodium 136 mmol/L (136-145) 07/02/21 20:06 Potassium 3.8 mmol/L (3.5-5.1) 07/02/21 20:06 Chloride 100 mmol/L (98-107) 07/02/21 20:06 Carbon Dioxide 30 mmol/L (21-32) 07/02/21 20:06 Anion Gap 6.0 (3-11) 07/02/21 20:06 BUN 18 mg/dl (7-18) 07/02/21 20:06 Creatinine 0.59 mg/dl (0.6-1.2) L 07/02/21 20:06 Est Cr Clr Drug Dosing Not Reportable 07/02/21 20:06 Est GFR ( Amer) 95.5 ml/min 07/02/21 20:06 Est GFR (Non-Af Amer) 82.4 ml/min 07/02/21 20:06 BUN/Creatinine Ratio 30.2 (10-20) H 07/02/21 20:06 Glucose 144 mg/dl (70-99) H 07/02/21 20:06 Calcium 8.7 mg/dl (8.5-10.1) 07/02/21 20:06 Magnesium 1.8 mg/dl (1.8-2.4) 07/02/21 20:06 Total Bilirubin 0.4 mg/dl (0.2-1) 07/02/21 20:06 Direct Bilirubin 0.2 mg/dl (0-0.2) 07/02/21 20:06 AST 16 U/L (15-37) 07/02/21 20:06 ALT 20 U/L (12-78) 07/02/21 20:06 Alkaline Phosphatase 136 U/L (45-117) H 07/02/21 20:06 Troponin I < 0.015 ng/ml (0-0.045) 07/02/21 20:06 Total Protein 7.6 gm/dl (6.4-8.2) 07/02/21 20:06 Albumin 3.4 gm/dl (3.4-5.0) 07/02/21 20:06 TSH 0.807 uIu/ml (0.300-4.500) 07/02/21 20:06 Urine Color Yellow 07/02/21 20:31 Urine Appearance Clear (Clear) 07/02/21 20:31 Urine pH 6.5 (4.5-7.5) 07/02/21 20:31 Ur Specific [place] 1.018 (1.000-1.030) 07/02/21 20:31 Urine Protein Negative (Negative) 07/02/21 20:31 Urine Glucose (UA) Negative (Negative) 07/02/21 20:31 Urine Ketones Negative (Negative) 07/02/21 20:31 Urine Blood Trace (Negative) H 07/02/21 20:31 Urine Nitrite Negative (Negative) 07/02/21 20:31 Urine Bilirubin Negative (Negative) 07/02/21 20:31 Urine Urobilinogen Negative (Negative) 07/02/21 20:31 Ur Leukocyte Esterase Negative (Negative) 07/02/21 20:31 Urine WBC (Auto) 1-5 /hpf (0-5) 07/02/21 20:31 Urine RBC (Auto) 5-10 /hpf (0-4) H 07/02/21 20:31 U Hyaline Cast (Auto) 1-5 /lpf (0-5) 07/02/21 20:31 U Epithel Cells (Auto) 0-5 /lpf (0-5) 09/14/21 20:31 Urine Bacteria (Auto) Negative (Negative) 07/02/21 20:31 COVID-19 Eval Order Covid19 at [facility] 07/02/21 20:03 SARS-CoV-2 (PCR) NEGATIVE (Negative) 07/02/21 20:03 Impressions Chest X-Ray 07/02/21 19:53 XR chest 1V portable HISTORY: 85 years-old Female worsening hallucinations acutely altered mental status COMPARISON: Chest radiograph 06/22/2021, CTA neck 04/07/2021 TECHNIQUE: Portable AP view of the chest FINDINGS: Cardiac silhouette is enlarged. Chronic right hemidiaphragmatic elevation with chronic reticular interstitial coarsening, most pronounced in the upper lung zones. No pneumothorax, pleural effusion or overt pulmonary edema. Associated bronchiectasis is better seen on comparison CTA of the neck. Patient is mildly rotated. Degenerative changes of the shoulders and spine.. IMPRESSION: Chronic findings as above without acute process. ACT 112: Negative or not required by law. The above report was generated using voice recognition software. It may contain grammatical, syntax or spelling errors. Electronically signed by: Kobi Helton M.D. 07/02/2021 8:[address] head initial read: No intracranial hemorrhage, mass effect or midline shift. There is no abnormal extra axial fluid collection. No evidence of acute infarct. Mild periventricular white matter h ypodensities are most consistent with chronic microangiopathy. The visualized paranasal sinuses and mastoid air cells are clear. No fracture.
[2021-07-03] MEDS ORDERED: PROMETHAZINE HCL 6.25 MG in SODIUM CHLORIDE 0.9% 50 ML IV PRN (01:56)
[2021-07-03] MEDS ORDERED: OLANZapine 10 MG/2.1 ML SDV IM PRN (01:56)
[2021-07-03] MEDS ORDERED: ACETAMINOPHEN 325 MG TAB PO PRN (01:56)
[2021-07-03] MEDS: APIXABAN 2.5 MG TAB PO SCH ×3 (03:22→23:04)
[2021-07-03] MEDS: BIMATOPROST 0.01% OP SOLN 2.5 ML BTL OPB SCH ×2 (03:22→20:24)
[2021-07-03] MEDS: risperiDONE 0.5 MG TABLET PO SCH ×2 (05:45→20:28)
[2021-07-03] MEDS: LEVOTHYROXINE SODIUM 75 MCG TABLET PO SCH (05:46)
--- NOTE | 2021-07-03 06:52 | CT Scan Report ---
CT OF THE HEAD WITHOUT CONTRAST CLINICAL HISTORY: Altered mental status. COMPARISON STUDY: Head CT June 22, 2021. CT DOSE: 537.48 mGy.cm TECHNIQUE: Helical axial images of the head were obtained without IV contrast. Automated exposure con trol was utilized for the study. A dose lowering technique was utilized adhering to the principles o f ALARA. FINDINGS: No acute intracranial hemorrhage, midline shift or mass effect is present. White matter hyp odensity suggests small vessel disease. The ventricular system is unremarkable. The basal cisterns ar e patent. No extra-axial collections are present. There are no findings to suggest acute dural sinus thrombosis or acute territorial infarct. No significant calvarial abnormalities are present. Visualiz ed portions of the sinuses and mastoid air cells are clear. IMPRESSION: No acute intracranial findings. No change in appearance of the brain. ACT 112: Negative or not required by law. Electronically signed by: Dallin Cardona M.D. 07/03/2021 6:51 AM
[2021-07-03] MEDS: ASPIRIN 81 MG CHEW PO SCH (08:41)
[2021-07-03] MEDS: FOLIC ACID 1 MG TAB PO SCH (08:41)
[2021-07-03] MEDS: ATORVASTATIN 20 MG TAB PO SCH (08:41)
[2021-07-03] MEDS: PSYLLIUM 58.6% POWDER PACKET PO SCH (08:41)
[2021-07-03] MEDS: PANTOprazole 40 MG TAB PO SCH (08:41)
[2021-07-03] MEDS: TIMOLOL MALEATE 0.5% OP SOLN 5 ML BTL OPL SCH (08:41)
[2021-07-03 09:26] LABS: Basophils # (auto) 0.02 K/uL (0-0.2); Basophils % (auto) 0.5 %; Eosinophils % (auto) 2.3 %; Hematocrit (blood only) 36.9 % (37-47); Hemoglobin 11.7 g/dL (12.0-16.0); Lymphocytes % (auto) 9.4 %; Mean Corpuscular Hemoglobin 30.1 pg (25-34); Mean Corpuscular Hgb Conc 31.7 g/dL (32-36); Mean Corpuscular Volume 94.9 fL (80-100); Mean Platelet Volume 9.6 fL (7.4-10.4); Monocytes # (auto) 0.38 K/uL (0.11-0.59); Monocytes % (auto) 8.9 %; Neutrophils # (auto) 3.37 K/uL (1.4-6.5); Neutrophils % (auto) 78.9 %; Platelet Count 234 K/uL (130-400); RDW Coefficient of Variation 13.6 % (11.5-14.5); RDW Standard Deviation 47.1 fL (36.4-46.3); Red Blood Count 3.89 M/uL (4.2-5.4); White Blood Count 4.27 K/uL (4.8-10.8)
[2021-07-03 09:44] LABS: BUN Creatinine Ratio 26.9 (10-20); Calcium 8.7 mg/dl (8.5-10.1); Creatinine Clr Calc Pharmacy 44.5 ml/min; Est GFR (Non-African American) 80.2 ml/min; Potassium 3.9 mmol/L (3.5-5.1)
--- NOTE | 2021-07-03 12:30 | Hospitalist Progress Note ---
Date of Service July 03, 2021 Assessment & Plan (1) Hallucinations: (2) Encephalopathy: Plan: 85-year-old lady with PMH of vascular dementia, TIA, hallucination secondary to Hay Bonnet syndrome, PAF on Eliquis, right breast cancer status post surgery, papillary thyroid cancer, hypothyroidism, recurrent UTIs on chronic Macrodantin suppression therapy and orders incontinence came in 07/02 to our ED with complaint of worsening hallucination. Patient is from personal-care residence [[facility]]. Per patient, her vision has been markedly deteriorating since last 3 weeks but her alteration in mentation and worsening hallucination prompted her to come to the ED. Patient was recently started by geriatric psychiatry on risperidone for delirium/hallucination. She is being managed for the following: #. Encephalopathy/AMS/visual hallucinations History of visual hallucination, vascular dementia, Hay Bonnet syndrome Currently residing at personal care facility. Recent ER visit 06/22/21 for hallucinations attributed to E. coli UTI. Patient discharged on Keflex course. Patient was recently started by geriatric psychiatry on risperidone for delirium/hallucination. Multifactorial, neurology and psychiatry consulted, appreciate recommendation No urinary complaints AOx3 at bedside exam today PT/OT, CM to assist with discharge planning. Continue supportive care #. Hypertension Home BP meds stopped last year secondary to low BP as per outpatient records. BUN and creatinine are normal and normal GFR Resumed prior home lisinopril Rx Continue to monitor BP #. PAF #. TIA history NSR Continue home meds, continue Eliquis #. Hypothyroidism c/w home meds Full code DVT prophylaxis: On Eliquis Disposition: PT/OT eval, await neuro and psychiatric recommendation, likely need placement, CM to assist with planning. Admission and Anticipated Discharge Date Admission Date: July 02, 2021 Subjective Patient was sitting up in bed, on room air, no issues overnight. NAD. She is eating and moving bowels okay. No new events overnight. She has decreased vision both eyes. She denies any fever/headache/chills/other review of symptoms. Physical Exam Physical Exam: GENERAL: Alert and oriented x3. NAD, on RA. Decreased vision bilateral eyes HEENT: No pallor, no icterus. Pupils equal, round and reactive to light. Oral mucosa moist. NECK: No JVD, no neck masses. HEART: S1 and S2 heard. Regular rate and rhythm. No murmur, no gallop. RESPIRATORY SYSTEM: Normal AP diameter. No accessory muscle use. No wheezing, no crackles. ABDOMEN: Soft, bowel sounds present, nontender, no distention. CENTRAL NERVOUS SYSTEM: Alert and oriented x3. No facial droop. Speech is clear. Obeys simple commands. Moves extremities. EXTREMITIES: No edema, no erythema seen. Power in extremities at baseline and symmetrical. Results & Data Results & Data ([facility]) Vital Signs (Past 12 Hours) Vital Signs Temp Pulse Pulse Resp BP BP BP 07/03/21 11:14 36.7 C 65 20 125/53 L 07/03/21 07:03 36.5 C 68 20 167/86 H 07/03/21 03:49 36.4 C L 66 20 165/81 H 07/03/21 01:56 36.9 C 66 61 17 160/88 H 07/03/21 01:00 62 16 122/88 Pulse Ox 07/03/21 11:14 99 07/03/21 07:03 97 07/03/21 03:49 97 07/03/21 01:56 97 07/03/21 01:00 99
--- NOTE | 2021-07-03 17:14 | Consultation Report ---
DATE OF CONSULTATION: 07/03/2021 REASON FOR CONSULTATION: Increased hallucinations. HISTORY OF PRESENT ILLNESS: This patient is well known to Dr. Caro and I have seen her several times in the hospital for spells of left hemianesthesia. She is thought to have vascular dementia. She had been recently confined to our facility 04/10/2021 to 04/16/2021 for mental status change secondary to urinary tract infection. She was at [facility] and then transitioned back to [facility] and then I believe back to [facility]. She had a recent ER visit on 06/22/2021 attributed to E. coli UTI, discharged on Keflex. Yesterday, the patient noted to be confused, rambling, "gibberish" as per records and no other symptoms. Outpatient urinalysis was negative. On the day of admission, it appears that the hallucinations were worsening, taking up things at bed, trying to climb out windows, thinking they are staircases. She was brought to the Emergency Room. She told the nurse the dog was eating her turkey sandwich at the Emergency Room. She has a history of multiple admissions for tingling and weakness in the left arm, which is migratory. Dr. Caro has hypothesized that this might be migrainous without the headache. Multiple MRIs have never shown or have not shown acute ischemia. An MRI in 11/2020, which I have looked at does not show any acute abnormality. Prior MRIs have also been performed for hallucinationsHer CT on 06/22/2021 did not show an acute abnormality. She has had CTAs of the head and neck, which were noncontributory. She was apparently seen by Psychiatry as an outpatient and started on Risperdal. She is also relatively recently according to the patient started on nitrofurantoin for UTI prophylaxis. 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 PAST SURGICAL HISTORY: Notable for hysterectomy, urologic procedure, laparotomy, mastectomy, oophorectomy and sling repair. FAMILY HISTORY: Breast cancer and stroke. SOCIAL HISTORY: Nonsmoker. No alcohol intake. 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 ALLERGIES: TETANUS, SULFA AND TRIMETHOPRIM. HOME MEDICATIONS: Vitamin D, folic acid, atorvastatin, omeprazole, apixaban, cyanocobalamin, Lumigan, gabapentin 200 mg at bedtime, Synthroid, psyllium, timolol eyedrops, nitrofurantoin, risperidone 0.5 at bedtime, Tylenol, Dextran. DIAGNOSTICS: Include a CT of the head which showed no acute intracranial abnormalities, chronic vascular changes. Chest x-ray, which showed chronic findings without acute process. LABORATORY DATA: Notable for a normal white count, H and H. CHEMISTRY PROFILE: BUN and creatinine 18/0.59, glucose 144, alkaline phosphatase 136. Urinalysis: Trace blood, 5-10 red cells. COVID negative. PHYSICAL EXAMINATION: On examination, the patient is awake and alert. Her speech, and language are normal and her affect is appropriate. She does not appear to be operating on the external stimuli. She admits to feeling that people are moving furniture in her room at the intermediate. Oriented times to month, year, president. No right/left confusion. There are no carotid bruits, no heart murmurs. No facial masking. visual saenz are markedly impaired. there is essentially no hand waving in the r eye and impaired vision superonasally in the left eye. There is no resting tremor or cogwheel rigidity. the pt is not bradykinetic. Normal extraocular motility, facial symmetry. There is symmetric strength in the upper and lowers. Symmetric reflexes, downgoing toes. [id number] and [id number] are normal. Memory is 3/3 at 3 minutes. IMPRESSION AND PLAN: This patient is said to have a vascular dementia, one raises the question about whether or not she could have a Lewy body dementia. I think the distinction is academic at this point. She had worsening hallucinations without any obvious toxic metabolic etiology. Nitrofurantoin in general is not reported to cause much in terms of confusion, but one could consider discontinuing it and seeing if things improve. Secondly omeprazole can cause confusion and agitation in the elderly, one might consider discontinuing that as well. Consider referral to Psychiatry regarding further increase in risperidone versus other medication. I do not think the pt needs any additional imaging at this time. Job ID: [id number] [facility]
--- NOTE | 2021-07-03 17:33 | Psychiatric Consultation ---
Date of Consultation July 03, 2021 Impression / Recommendations Impression 85 yo female with hallucinations secondary to poor eyesight, vascular dementia, partial resonse to Risperdal but recent UTI with possible resolving delirium. Concerns for possible lewy body component or primary per neuro. Unclear if gait is EPS or baseline, regardless would avoid anticholinergics. (1) Hallucinations: on exam patient was currently calm/easy to redirect, likely sundowns and memory results in disorientation even in familiar environment. Will consult with Dr. Ramirez, I am currently hesitant to titrate Risperdal. Perhaps dose could be shifted or split based on behaviors observed here. 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 Last seen on consult service 12/09. Chief Complaint "I have to feel my way around and then saw my dressers facing backwards and got confused". History of Present Illness Per neuro: She had a recent ER visit on 06/22/2021 attributed to E. coli UTI, discharged on Keflex. Yesterday, the patient noted to be confused, rambling, "gibberish" as per records and no other symptoms. Outpatient urinalysis was negative. On the day of admission, it appears that the hallucinations were worsening, taking up things at bed, trying to climb out windows, thinking they are staircases. She was brought to the Emergency Room. She told the nurse the dog was eating her turkey sandwich at the Emergency Room. Nurse was escorting patient from bedside commode to bed, patient clearly weak and shuffling gait/fall risk and wanted to be able to sit in a chair to exercise. She reports not having much to do and relies on her radio "NPR all day". She recognizes she was confused at [facility]. Since last contact with out service she has been started on Risperdal 0.5 mg hs. Awaiting records from Dr. Ramirez (consulting [facility] psych to [facility]). She reports that medication was helping as "prior to that I saw 50 people coming in and out of my room". She denies that she was trying to get out the window/escape from [facility]. She appropriately used the assist device on the remote to orient herself. She was thankful for the visit as "you gave me something to do" Past Psychiatric History Previous Psych History: see prior consult Allergies Allergy/AdvReac Type Severity Reaction Status Date / Time tetanus toxoid, adsorbed Allergy Mild SWELLING Verified 07/02/21 20:41 AND REDNESS sulfamethoxazole AdvReac Dizziness Verified 07/02/21 20:41 [From Bactrim] trimethoprim [From Bactrim] AdvReac Dizziness Verified 07/02/21 20:41 Home Medications Medication Instructions Recorded Confirmed Type cholecalciferol (vitamin D3) 25 1,000 unit PO QAM #0 03/21/17 07/02/21 History mcg (1,000 unit) capsule folic acid 1 mg tablet 1 mg PO QAM #0 03/21/17 07/02/21 History atorvastatin 20 mg tablet (Lipitor) 20 mg PO QAM #0 tab 02/11/18 07/02/21 History omeprazole 20 mg capsule,delayed 20 mg PO QAM #0 02/11/18 07/02/21 History release apixaban 2.5 mg tablet (Eliquis) 2.5 mg PO BID #0 tab 03/29/18 07/02/21 History cyanocobalamin (vitamin B-12) 2,000 mcg PO QAM #0 03/29/18 07/02/21 History 1,000 mcg capsule bimatoprost 0.01 % eye drops 1 drp OPB HS 10/11/18 07/02/21 History (Lumigan) gabapentin 100 mg capsule 200 mg PO HS #60 cap 10/15/18 07/02/21 Rx levothyroxine 75 mcg tablet 75 mcg PO QAM 03/26/19 07/02/21 History (Synthroid) psyllium See Rx Instructions .ROUTE .COMPLEX 12/12/20 07/02/21 History timolol maleate 0.5 % eye drops 1 drp OPL QAM 12/12/20 07/02/21 History nitrofurantoin macrocrystal 50 mg 50 mg PO HS 06/22/21 07/02/21 History capsule risperidone 0.5 mg tablet 0.5 mg PO HS 06/22/21 07/02/21 History acetaminophen 325 mg tablet 650 mg PO QID PRN MDD 3g 07/02/21 07/02/21 History aspirin 81 mg chewable tablet 81 mg PO QAM 07/02/21 07/02/21 History (Aspirin Children[facility]) dextran 70-hypromellose eye drops 1 drp OPB .EVERY 2 HOURS W/A 07/02/21 07/02/21 History in a dropperette (Artificial Tears (PF)) Personal History Highest Grade Completed: High School Graduate Employment Status: Retired Marital Status: Beliefs That Will Affect Care: None Patient History Medical History Acute confusion Atrial fibrillation Atrial fibrillation with RVR Central retinal vein occlusion of right eye Dyslipidemia History of breast cancer "intraductal carcinoma left breast, s/p lumpectomy" History of osteoporosis History of pulmonary embolism HTN (hypertension) Hx of MTHFR mutation LUE weakness Numbness of left hand Papillary carcinoma of thyroid SBO (small bowel obstruction) Small bowel obstruction UGIB (upper gastrointestinal bleed) Uterine prolapse UTI (urinary tract infection) Surgical History H/O oophorectomy History of bladder surgery History of cataract surgery History of hysterectomy S/P exploratory laparotomy lysis of adhesions Status post partial mastectomy "left breast, DCIS" Family History Father Stroke Hypertension Mother Heart disease Social History Smoking Status: Never smoker Second Hand Exposure: No; Hx Alcohol Use: No Hx Substance Use: No Preferred Language: Upper Sorbian Communication Ability: Impaired Visual Impairment: Limited Hearing Ability: Normal Associate Professor Of Management Required: No Beliefs That Will Affect Care: None marital status: / Current Living Situation: [facility] Current Living Situation Comment: [facility] 3x week, daughter lives next door current occupational status: retired Feels Safe at Home: Yes Safety Concerns: Feels Safe At This Time Assistive Devices: Walker Physical Exam Psychiatric: Orientation: alert, oriented to person and oriented to place Apperance: appropriately dressed and appropriately groomed Eye Contact: + poor eye contact Speech: normal rate/rhythm/volume of speech Affect: euthymic affect mood is pleasant Thought Process: + concrete thought process (poor memory for timing of events) Thought Content: reality based without delusions Suicidal Thoughts: denies suicidal thoughts Homicidal Thoughts: denies homicidal thoughts Hallucinations: no auditory hallucinations and no visual hallucinations Cognition: attention grossly intact and language grossly intact Estimated Intelligence: consistent with education level Insight: + limited insight Vital Signs (Past 24 Hours): Last Vital Signs Temp 36.8 C 07/03/21 14:58 Pulse 78 07/03/21 15:51 Resp 20 07/03/21 14:58 BP 149/67 H 07/03/21 14:58 Pulse Ox 97 07/03/21 14:58 Review of Systems All systems reviewed & are unremarkable except as noted in HPI & below Results & Data (PSY) Medications Administered Apixaban (Apixaban 2.5 Mg Tab) 2.5 mg PO BID [facility] Stop: 08/02/21 02:59 Last Admin: 07/03/21 11:29 Dose: 2.5 mg Documented by: [id number] Admin: 07/03/21 03:22 Dose: 2.5 mg Documented by: [id number] Aspirin (Aspirin 81 Mg Chew) [facility] Stop: 08/02/21 08:59 Last Admin: 07/03/21 08:41 Dose: 81 mg Documented by: [id number] Atorvastatin Calcium (Atorvastatin 20 Mg Tab) 20 mg PO [facility] Stop: 08/02/21 08:59 Last Admin: 07/03/21 08:41 Dose: 20 mg Documented by: [id number] Bimatoprost (Bimatoprost 0.01% Op Soln 2.5 Ml Btl) 1 drops OPB [facility] Stop: 08/02/21 02:59 Last Admin: 07/03/21 03:22 Dose: 1 drops Documented by: [id number] Folic Acid (Folic Acid 1 Mg Tab) [facility] Stop: 08/02/21 08:59 Last Admin: 07/03/21 08:41 Dose: 1 mg Documented by: [id number] Levothyroxine Sodium (Levothyroxine Sodium 75 Mcg Tablet) [facility] Stop: 08/02/21 06:29 Last Admin: 07/03/21 05:46 Dose: 75 mcg Documented by: [id number] Pantoprazole Sodium (Pantoprazole 40 Mg Tab) 40 [facility]; Protocol Stop: 08/02/21 08:59 Last Admin: 07/03/21 08:41 Dose: 40 mg Documented by: [id number] Psyllium Hydrophilic Mucilloid (Psyllium 58.6% Powder Packet) 1 pkt PO DAILY [facility] Stop: 08/02/21 08:59 Last Admin: 07/03/21 08:41 Dose: 1 pkt Documented by: [id number] Risperidone (Risperidone 0.5 Mg Tablet) 0.5 mg PO HS [facility] Stop: 08/02/21 02:59 Last Admin: 07/03/21 05:45 Dose: Not Given Documented by: [id number] Timolol Maleate (Timolol Maleate 0.5% Op Soln 5 Ml Btl) 1 drops OPL QAM [facility] Stop: 08/02/21 08:59 Last Admin: 07/03/21 08:41 Dose: 1 drops Documented by: [id number] Coding Level of Care Code 06857 Inpt Consult Level 3 Diagnoses Hallucinations R44.3
[2021-07-03] MEDS: lisinopril 2.5 MG TAB PO SCH (20:27)
[2021-07-03] MEDS: nitrofurantoin macrocrystaL 50 MG CAP PO SCH (20:28)
[2021-07-04] MEDS: LEVOTHYROXINE SODIUM 75 MCG TABLET PO SCH (06:16)
[2021-07-04 08:10] LABS: Hematocrit (blood only) 37.5 % (37-47); Mean Corpuscular Hemoglobin 30.2 pg (25-34); Mean Corpuscular Volume 94.5 fL (80-100); Mean Platelet Volume 9.6 fL (7.4-10.4); Platelet Count 248 K/uL (130-400); RDW Coefficient of Variation 13.5 % (11.5-14.5); RDW Standard Deviation 46.6 fL (36.4-46.3); Red Blood Count 3.97 M/uL (4.2-5.4); White Blood Count 8.03 K/uL (4.8-10.8)
[2021-07-04] MEDS: TIMOLOL MALEATE 0.5% OP SOLN 5 ML BTL OPL SCH (08:42)
[2021-07-04] MEDS: FOLIC ACID 1 MG TAB PO SCH (08:43)
[2021-07-04] MEDS: PANTOprazole 40 MG TAB PO SCH (08:43)
[2021-07-04] MEDS: ATORVASTATIN 20 MG TAB PO SCH (08:43)
[2021-07-04] MEDS: APIXABAN 2.5 MG TAB PO SCH ×2 (08:43→21:16)
[2021-07-04] MEDS: ASPIRIN 81 MG CHEW PO SCH (08:43)
[2021-07-04] MEDS: PSYLLIUM 58.6% POWDER PACKET PO SCH (08:44)
[2021-07-04] MEDS ORDERED: LOSARTAN POTASSIUM 25 MG TAB PO SCH (09:00)
--- NOTE | 2021-07-04 15:00 | Communication Note ---
Date of Service: July 04, 2021 case reviewed briefly [address] Dr. Mejias. No issues reported other than some incontinence over night. No acute indication to increase Risperdal; monitor for sundowning resulting in confusion around orientation. LM for outpatient psychiatrist Dr. Ramirez to see if any additional recs re: splitting or shifting dosing.
--- NOTE | 2021-07-04 16:00 | Hospitalist Progress Note ---
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 Patient is from personal-care residence [[facility] Per patient, her vision has been markedly deteriorating since last 3 weeks but her alteration in mentation and worsening hallucination prompted her to come to the ED. Patient was recently started by geriatric psychiatry on risperidone for delirium/hallucination. She is being managed for the following: #. Encephalopathy/AMS/visual hallucinations History of visual hallucination, vascular dementia, Hay Bonnet syndrome Currently residing at personal care facility. Recent ER visit 06/22/21 for hallucinations attributed to E. coli UTI. Patient discharged on Keflex course. Patient was recently started by geriatric psychiatry on risperidone for delirium/hallucination. Multifactorial, neurology and psychiatry consulted, appreciate recommendation No urinary complaints AOx3 at bedside exam today PT/OT, CM to assist with discharge planning. Continue supportive care Psychiatry on board: No indication to increase Risperdal, recommending follow-up with outpatient psychiatrist Dr. Ramirez. Neurology on board: Worsening hallucination without any obvious toxic metabolic etiology. Giving the possibility of stopping nitrofurantoin and see if it helps with her confusion. Also holding omeprazole might help deedee some confusion and agitation in the elderly. We will try holding home omeprazole to see if it helps. Given recurrent history of UTI, will continue with nitrofurantoin for now. #. Hypertension Home BP meds stopped last year secondary to low BP as per outpatient records. BUN and creatinine are normal and normal GFR Resumed prior home lisinopril Rx Continue to monitor BP #. PAF #. TIA history NSR Continue home meds, continue Eliquis #. Hypothyroidism c/w home meds Full code DVT prophylaxis: On Eliquis Disposition: PT/OT eval, patient is in assisted living resident but will need more medical care, awaiting placement. Admission and Anticipated Discharge Date Admission Date: July 04, 2021 Subjective Patient was sitting up in chair, on room air,. She was incontinent overnight per RN. But during the morning she was continent. NAD. She is eating and moving bowels okay. She has decreased vision both eyes. She denies any fever/headache/chills/other review of symptoms. Physical Exam Physical Exam: GENERAL: Alert and oriented x3. NAD, on RA. Decreased vision bilateral eyes HEENT: No pallor, no icterus. Pupils equal, round and reactive to light. Oral mucosa moist. NECK: No JVD, no neck masses. HEART: S1 and S2 heard. Regular rate and rhythm. No murmur, no gallop. RESPIRATORY SYSTEM: Normal AP diameter. No accessory muscle use. No wheezing, no crackles. ABDOMEN: Soft, bowel sounds present, nontender, no distention. CENTRAL NERVOUS SYSTEM: Alert and oriented x3. No facial droop. Speech is clear. Obeys simple commands. Moves extremities. EXTREMITIES: No edema, no erythema seen. Power in extremities at baseline and symmetrical. Results & Data Results & Data ([facility]) Vital Signs (Past 12 Hours) Vital Signs Temp Pulse Pulse Resp BP Pulse Ox 07/04/21 15:24 72 07/04/21 14:57 36.7 C 66 20 159/78 H 95 07/04/21 11:22 36.6 C 72 18 113/65 97 07/04/21 10:43 72 07/04/21 07:40 36.7 C 80 20 148/86 H 95
--- NOTE | 2021-07-04 17:42 | Progress Notes ---
DATE OF SERVICE: 07/04/2021 I am seeing Mrs. Johnson in followup of an increase in hallucinations and probable vascular dementia. I spoke to her daughter, Sumit, today. Apparently, the patient called [facility] the hospital thinking she was at home and that Mrs. Johnson had seen her walking by. She seems mildly agitated and concerned about her hallucinations. She does not currently know that she is in a hospital. She is able to fairly accurately discuss issues related to her hallucinations and her visual impairment. Dr. Barrios from psychiatry saw the patient today. Dr. Ramirez has prescribed risperidone as an outpatient. Dr. Barrios plans on communicating with Dr. Ramirez regarding an increase in the risperidone. That is reasonable to do and I appreciate that communication. Dr. Caro will be taking over the service tomorrow and I will communicate to him that Mrs. Johnson is in the hospital. Job ID: [id number] MTDD
[2021-07-04] MEDS: BIMATOPROST 0.01% OP SOLN 2.5 ML BTL OPB SCH (21:14)
[2021-07-04] MEDS: lisinopril 2.5 MG TAB PO SCH (21:15)
[2021-07-04] MEDS: nitrofurantoin macrocrystaL 50 MG CAP PO SCH (21:15)
[2021-07-04] MEDS: risperiDONE 0.5 MG TABLET PO SCH (21:16)
[2021-07-04] MEDS ORDERED: cloNIDine HCL 0.1 MG TAB PO ONE (23:12)
[2021-07-05] MEDS: LEVOTHYROXINE SODIUM 75 MCG TABLET PO SCH (05:55)
[2021-07-05] MEDS: ATORVASTATIN 20 MG TAB PO SCH (08:57)
[2021-07-05] MEDS: FOLIC ACID 1 MG TAB PO SCH (08:57)
[2021-07-05] MEDS: APIXABAN 2.5 MG TAB PO SCH (08:57)
[2021-07-05] MEDS: PSYLLIUM 58.6% POWDER PACKET PO SCH (08:57)
[2021-07-05] MEDS: ASPIRIN 81 MG CHEW PO SCH (08:57)
[2021-07-05] MEDS: TIMOLOL MALEATE 0.5% OP SOLN 5 ML BTL OPL SCH (08:58)
[2021-07-05 11:57] VITALS: PULSE 71; TEMP 98.1; O2SAT 99
[2021-07-05 14:06] VITALS: BP 162/89
--- NOTE | 2021-07-05 14:51 | Hospitalist Progress Note ---
Date of Service July 05, 2021 Assessment & Plan (1) Hallucinations: (2) Encephalopathy: Plan: per Dr. 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 Patient is from personal-care residence [[facility] Per patient, her vision has been markedly deteriorating since last 3 weeks but her alteration in mentation and worsening hallucination prompted her to come to the ED. Patient was recently started by geriatric psychiatry on risperidone for delirium/hallucination. She is being managed for the following: #. Encephalopathy/AMS/visual hallucinations per Dr. Mejias's notes: History of visual hallucination, vascular dementia, Hay Bonnet syndrome Currently residing at personal care facility. Recent ER visit 06/22/21 for hallucinations attributed to E. coli UTI. Patient discharged on Keflex course. Patient was recently started by geriatric psychiatry on risperidone for delirium/hallucination. Multifactorial, neurology and psychiatry consulted, appreciate recommendation No urinary complaints Psychiatry on board: No indication to increase Risperdal, recommending follow-up with outpatient psychiatrist Dr. Ramirez. Neurology on board: Worsening hallucination without any obvious toxic metabolic etiology. Giving the possibility of stopping nitrofurantoin and see if it helps with her confusion. Also holding omeprazole might help deedee some confusion and agitation in the elderly. We will try holding home omeprazole to see if it helps. Given recurrent history of UTI, will continue with nitrofurantoin for now. 07/05 no focal neuro deficits no change from baseline per staff services manager familiar with patient d/c to [facility] up with PCP, Neuro, Psycj #. Hypertension per Dr. Mejias's notes: Home BP meds stopped last year secondary to low BP as per outpatient records. BUN and creatinine are normal and normal GFR Resumed prior home lisinopril Rx Continue to monitor BP closely #. PAF #. TIA history in sinus rhythm Continue home meds, continue Eliquis #. Hypothyroidism c/w home meds Admission and Anticipated Discharge Date Admission Date: July 04, 2021 Subjective ff up for encephalopathy, etc seen resting in bedside chair, comfortable states she feels ok overall has some mild lightheadedness no chest pain, dyspnea, palpitations no other symptoms per RN Ladonna, no change from baseline since past few days Review of Systems Review of Systems: all noted and negative except for above Physical Exam Physical Exam: General- oriented x 2, not in distress, speaks in sentences with no effort or accessory muscle use Eyes- anicteric Neck- no JVD Lungs- clear breath sounds bilaterally, no rales/wheezes Heart- normal rate, regular rhythm; no murmurs Abdomen- normal bowel sounds, nondistended, soft, nontender Extremities- no pretibial edema, no calf tenderness Neuro- alert, oriented x 3; no gross focal neurologic deficits Skin- warm & dry Results & Data Results & Data ([facility]) Vital Signs (Past 12 Hours) Vital Signs Temp Pulse Pulse Resp BP BP Pulse Ox 07/05/21 14:04 36.7 C 71 20 98/59 L 162/89 H 99 07/05/21 11:56 36.7 C 71 20 98/59 L 99 07/05/21 11:00 74 07/05/21 08:09 36.5 C 64 20 128/76 95 all noted and reviewed including below
--- NOTE | 2021-07-05 20:42 | Discharge Summary ---
Date of Service July 05, 2021 Admission HPI Per Admitting Provider History obtained from patient, family, and records. Patient is a fair historian. 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 Recent confinement April 10-2020 for altered mental status secondary to UTI. [facility] for 3 weeks before transitioning back personal care facility residence ([facility]). Patient started by geriatric psychiatry (Dr. Doyle of [facility]) on Risperidone for delirium/hallucinations during rehab stay as per documentation. Recent ER visit 06/22/21 for hallucinations attributed to E. coli UTI. Patient discharged on Keflex course. Yesterday, patient noted to be confused at resident. Rambling gibberish as per records. No complaints of urinary symptoms. Outpatient UA normal. Worsening hallucinations this morning, taking up things at bed and trying to climb out of windows taking they are staircases as per records. Patient denies chest pain, S OB, headache, abdominal pain. Patient brought to the ER for evaluation. Patient told nurse a dog was eating her turkey sandwich at the ER. MEDICAL HISTORY: As above. SURGERIES: hysterectomy, urologic procedures, ex-lap, mastectomy right breast, oophorectomy, sling repair. FAMILY HISTORY: There is a family history of breast cancer, stroke. PERSONAL SOCIAL HISTORY: Nonsmoker. 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 Personal care facility residence Admission Exam (Per Admitting) Constitutional GENERAL: comfortable, slightly anxious, slightly hard of hearing, oriented to day and month, visual hallucinations during encounter (seen multiple people in the room), no respiratory distress SKIN: Normal color, warm HEENT: Tonica palpebral conjunctivae, no ptosis, dry buccal mucosa NECK : Supple, no tenderness CHEST : CTA, no tenderness HEART : RRR, no obvious murmurs ABDOMEN: Some distention, nontender EXTREMITIES : No LE swelling/tenderness, no other conspicuous deformities noted NEUROLOGIC : Coherent, no facial asymmetry, slightly hard of hearing, no other gross focality Discharge Data Consultations 07/02/21 21:36 ED Decision to Admit Stat 07/03/21 01:56 Consult Psychiatry Routine 07/03/21 07:08 Consult Neurology Routine Procedures Performed CT OF THE HEAD WITHOUT CONTRAST CLINICAL HISTORY: Altered mental status. COMPARISON STUDY: Head CT June 22, 2021. CT DOSE: 537.48 mGy.cm TECHNIQUE: Helical axial images of the head were obtained without IV contrast. Automated exposure control was utilized for the study. A dose lowering technique was utilized adhering to the principles of ALARA. FINDINGS: No acute intracranial hemorrhage, midline shift or mass effect is present. White matter hypodensity suggests small vessel disease. The ventricular system is unremarkable. The basal cisterns are patent. No extra-axial collections are present. There are no findings to suggest acute dural sinus thrombosis or acute territorial infarct. No significant calvarial abnormalities are present. Visualized portions of the sinuses and mastoid air cells are clear. IMPRESSION: No acute intracranial findings. No change in appearance of the brain. XR chest 1V portable HISTORY: 85 years-old Female worsening hallucinations acutely altered mental status COMPARISON: Chest radiograph 06/22/2021, CTA neck 04/07/2021 TECHNIQUE: Portable AP view of the chest FINDINGS: Cardiac silhouette is enlarged. Chronic right hemidiaphragmatic elevation with chronic reticular interstitial coarsening, most pronounced in the upper lung zones. No pneumothorax, pleural effusion or overt pulmonary edema. Associated bronchiectasis is better seen on comparison CTA of the neck. Patient is mildly rotated. Degenerative changes of the shoulders and spine.. IMPRESSION: Chronic findings as above without acute process. ACT 112: Negative or not required by law. Hospital Course (1) Hallucinations: (2) Encephalopathy: per Dr. 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 Patient is from personal-care residence [[facility] Per patient, her vision has been markedly deteri orating since last 3 weeks but her alteration in mentation and worsening hallucination prompted her to come to the ED. Patient was recently started by geriatric psychiatry on risperidone for delirium/hallucination. She is being managed for the following: #. Encephalopathy/AMS/visual hallucinations per Dr. Mejias's notes: History of visual hallucination, vascular dementia, Hay Bonnet syndrome Currently residing at personal care facility. Recent ER visit 06/22/21 for hallucinations attributed to E. coli UTI. Patient discharged on Keflex course. Patient was recently started by geriatric psychiatry on risperidone for delirium/hallucination. Multifactorial, neurology and psychiatry consulted, appreciate recommendation No urinary complaints Psychiatry on board: No indication to increase Risperdal, recommending follow-up with outpatient psychiatrist Dr. Ramirze. Neurology on board: Worsening hallucination without any obvious toxic metabolic etiology. Giving the possibility of stopping nitrofurantoin and see if it helps with her confusion. Also holding omeprazole might help deedee some confusion and agitation in the elderly. We will try holding home omeprazole to see if it helps. Given recurrent history of UTI, will continue with nitrofurantoin for now. 07/05 no focal neuro deficits no change from baseline per staff rn familiar with patient d/c to [facility] up with PCP, Neuro, Psycj #. Hypertension per Dr. Mejias's notes: Home BP meds stopped last year secondary to low BP as per outpatient records. BUN and creatinine are normal and normal GFR Resumed prior home lisinopril Rx Continue to monitor BP closely #. PAF #. TIA history in sinus rhythm Continue home meds, continue Eliquis #. Hypothyroidism c/w home meds
== END 2021-07-05 15:07 | DRG 71 ==
LOC: ED 17:41 → 2N 17:41 → SUATTDRO 22:45 → 2N 07-03 01:00 → SUATTDRO 07-04 13:24

== ENCOUNTER 2022-03-16 12:59 | Observation (INO) ==
--- NOTE | 2022-03-16 13:12 | Emergency Department Note ---
Impression & Plan Brain TIA, Anemia, Acute hypokalemia ED Provider Note NAME: AJISON FULLER AGE: 86 SEX: F : 1935 ARRIVES VIA: Ambulance INFORMANT: Patient ED PROVIDER(S): Luis Fernandez DO CHIEF COMPLAINT: left sided weakness HPI: Patient is an 86-year-old female with a past medical history of hallucinations and encephalopathy that presents to the ER for left arm weakness which was flaccid around 12:00. This lasted for about 20 minutes. Has resolved. She does not remember this. 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 She denies any chest pain or shortness of breath. No belly pain, nausea, vomiting, or diarrhea. Per staff she also could not stand at that time and they felt she was weaker on that left leg as well. History was slightly limited and patient does have a history of hallucinations and encephalopathy as well. ROS: See above HPI for pertinent positives & negatives. A total of 10 systems reviewed and were otherwise negative. PAST MEDICAL HISTORY:See Below PAST SURGICAL HISTORY:See Below FAMILY HISTORY:See Below SOCIAL HISTORY:See Below HOME MEDICATIONS:See Below ALLERGIES:See Below VITALS:See Below PHYSICAL EXAMINATION: GENERAL: Sitting up in bed, alert, chronically ill-appearing, disheveled EYE EXAM: normal conjunctiva. OROPHARYNX: no exudate, no erythema, lips, buccal mucosa, and tongue normal and mucous membranes are moist NECK: supple, no nuchal rigidity, no adenopathy, non-tender LUNGS: Clear to auscultation. Normal chest wall mechanics HEART: no murmurs, S1 normal and S2 normal ABDOMEN: abdomen soft, non-tender, normo-active bowel sounds, no masses, no rebound or guarding. UPPER EXTREMITIES: upper extremities are grossly normal. LOWER EXTREMITIES: No pitting edema. NEURO EXAM: Awake alert following commands, normal speech, cranial nerves II through XII grossly intact, no focal weakness in the upper or lower extremities. No drift. MEDICAL DECISION MAKING: Patient is an 86-year-old female who presents the ER for the boasting complaint. IV was established with orders obtained. Labs show mild anemia 10. No significant leukocytosis. BMP along with LFTs bilirubin was unremarkable. UA was clean. CTs as well as angios of the head and neck showed no new acute p athology. Patient is currently on apixaban. Discussed with the hospitalist Dr. Scott for further evaluation. On my evaluation there is no focal deficit. Triage Nursing notes reviewed. Limited review of prior medical records performed Vital Signs: reviewed and remarkable for no significant abnormalities Differential diagnosis: Differential Diagnosis includes but is not limited to ischemic Stroke, hemorrhagic stroke, bells palsy, mass, neoplasm, migraine headache, seizure, subarachnoid hemorrhage, TIA, and transient global amnesia. ER treatment provided: See below Diagnostics interpreted by me: ECG: Sinus rhythm rate of 68 Normal axis No PVCs QTC 459 Cardiac Monitoring: An order was placed for continuous cardiac monitoring. The monitor shows a rate of 70 with sinus rhythm. Laboratory studies: As stated above and show below. Imaging studies: CT angios the head and neck were unremarkable Consultation(s): Discussed with Dr. toussaint for further evaluation Procedures: none Critical Care: None Past Med/Surg History Medical History Acute confusion Atrial fibrillation Atrial fibrillation with RVR Central retinal vein occlusion of right eye Dyslipidemia History of breast cancer "intraductal carcinoma left breast, s/p lumpectomy" History of osteoporosis History of pulmonary embolism HTN (hypertension) Hx of MTHFR mutation LUE weakness Numbness of left hand Papillary carcinoma of thyroid SBO (small bowel obstruction) Small bowel obstruction UGIB (upper gastrointestinal bleed) Uterine prolapse UTI (urinary tract infection) Surgical History H/O oophorectomy History of bladder surgery History of cataract surgery History of hysterectomy S/P exploratory laparotomy lysis of adhesions Status post partial mastectomy "left breast, DCIS" Family History Father Stroke Hypertension Mother Heart disease Social History Smoking Status: Never smoker Second Hand Exposure: No; Hx Alcohol Use: No Hx Substance Use: No Preferred Language: Turkmen Communication Ability: Impaired Visual Impairment: Limited Hearing Ability: Normal Air Support Operations Operator Required: No Beliefs That Will Affect Care: None marital status: / Current Living Situation: Shelter Current Living Situation Comment: [facility] 3x week, daughter lives next door current occupational status: retired Feels Safe at Home: Yes Assistive Devices: Walker Allergies Allergies Allergy/AdvReac Type Severity Reaction Status Date / Time tetanus toxoid, adsorbed Allergy Mild SWELLING Verified 03/16/22 14:08 AND REDNESS sulfamethoxazole AdvReac Dizziness Verified 03/16/22 14:08 [From Bactrim] trimethoprim [From Bactrim] AdvReac Dizziness Verified 03/16/22 14:08 Home Meds Home Medications Medication Instructions Recorded Confirmed cholecalciferol (vitamin D3) 25 1,000 unit PO QAM #0 03/21/17 03/16/22 mcg (1,000 unit) capsule folic acid 1 mg tablet 1 mg PO QAM #0 03/21/17 03/16/22 atorvastatin 20 mg tablet (Lipitor) 20 mg PO QAM #0 tab 02/11/18 03/16/22 apixaban 2.5 mg tablet (Eliquis) 2.5 mg PO BID #0 tab 03/29/18 03/16/22 cyanocobalamin (vitamin B-12) 2,000 mcg PO QAM #0 03/29/18 03/16/22 1,000 mcg capsule bimatoprost 0.01 % eye drops 1 drp OPB HS 10/11/18 03/16/22 (Lumigan) levothyroxine 75 mcg tablet 75 mcg PO QAM 03/26/19 03/16/22 (Synthroid) psyllium See Rx Instructions .ROUTE .COMPLEX 12/12/20 03/16/22 timolol maleate 0.5 % eye drops 1 drp OPL QAM 12/12/20 03/16/22 nitrofurantoin macrocrystal 50 mg 50 mg PO HS 06/22/21 03/16/22 capsule risperidone 0.5 mg tablet 0.5 mg PO HS 06/22/21 03/16/22 acetaminophen 325 mg tablet 650 mg PO QID PRN MDD 3g 07/02/21 03/16/22 aspirin 81 mg chewable tablet 81 mg PO QAM 07/02/21 03/16/22 (Aspirin Childrens) dextran 70-hypromellose eye drops 1 drp OPB .EVERY 2 HOURS W/A 07/02/21 03/16/22 in a dropperette (Artificial Tears (PF)) Lactobacillus 25 billion 0 cap PO DAILY 03/16/22 03/16/22 cell-Bifido 25 billion [id number] capsule (Women's Probiotic) apixaban 2.5 mg PO BID 03/16/22 03/16/22 docusate sodium 100 mg capsule 100 mg PO Q24H PRN 03/16/22 03/16/22 donepezil 5 mg tablet 5 mg PO DAILY 03/16/22 03/16/22 ferrous sulfate 325 mg (65 mg 325 mg PO DAILY 03/16/22 03/16/22 iron) tablet (iron) menthol 4 % topical gel (Biofreeze 1 applic TOPICAL Q4H PRN 03/16/22 03/16/22 (menthol)) Previous Rx's Medication Instructions Recorded gabapentin 100 mg capsule 200 mg PO HS #60 cap 10/15/18 lisinopril 2.5 mg tablet 2.5 mg PO HS #30 tab 07/05/21 Results & Data (ED) Vital Signs Vital Signs - 24 hr 03/16/22 13:12 03/16/22 13:13 03/16/22 13:20 Temperature 36.9 C Temperature Source Oral Pulse Rate 66 71 Pulse Rate from SpO2 Sensor Respiratory Rate 20 17 Respiratory Effort / Characteristics Non-Labored Respiratory Depth Normal Blood Pressure 112/68 Blood Pressure Mean 82 Pulse Oximetry 96 96 Oxygen Delivery Method Room Air Room Air Sepsis Recent Fever Within 48 Hours No Sepsis New/Unexplained Change in Mental Status No Sepsis Action Taken by Nursing No Action Required 03/16/22 13:30 03/16/22 14:00 03/16/22 14:27 Temperature Temperature Source Pulse Rate 71 68 Pulse Rate from SpO2 Sensor 70 Respiratory Rate 16 14 Respiratory Effort / Characteristics Respiratory Depth Blood Pressure 136/68 Blood Pressure Mean 90 Pulse Oximetry 97 98 98 Oxygen Delivery Method Sepsis Recent Fever Within 48 Hours Sepsis New/Unexplained Change in Mental Status Sepsis Action Taken by Nursing Laboratory Data Result diagrams: 03/16/22 16:26 03/16/22 13:40 Lab Results 03/16/22 03/16/22 03/16/22 Range/Units 13:28 13:40 13:40 WBC (4.8-10.8) K/uL RBC (4.2-5.4) M/uL Hgb (12.0-16.0) g/dL Hct (37-47) % MCV (80-100) fL MCH (25-34) pg MCHC (32-36) g/dL RDW Std Deviation (36.4-46.3) fL RDW Coeff of Bassem (11.5-14.5) % Plt Count (130-400) K/uL MPV (7.4-10.4) fL Immature Gran % (Auto) % Neut % (Auto) % Lymph % (Auto) % Yell % (Auto) % Eos % (Auto) % Baso % (Auto) % Neut # (Auto) (1.4-6.5) K/uL Lymph # (Auto) (1.2-3.4) K/uL Yell # (Auto) (0.11-0.59) K/uL Eos # (Auto) (0-0.5) K/uL Baso # (Auto) (0-0.2) K/uL Immature Gran # (Auto) (0.00-0.02) K/uL PT 11.0 (9.0-12.0) Seconds INR 1.0 (0.9-1.1) APTT 22.6 (21.0-31.0) Seconds PTT Ratio 0.8 Sodium 134 L (136-145) mmol/L Potassium 3.8 (3.5-5.1) mmol/L Chloride 98 (98-107) mmol/L Carbon Dioxide 30 (21-32) mmol/L Anion Gap 6 (3-11) BUN 17 (6-23) mg/dl Creatinine 0.66 (0.6-1.2) mg/dl Est Cr Clr Drug Dosing 42.3 ml/min Est GFR ( Amer) 91.4 ml/min Est GFR (Non-Af Amer) 78.9 ml/min BUN/Creatinine Ratio 25.8 H (10-20) Glucose 87 (70-99(Fasting)) mg/dl POC Glucose 102 H (70-99) mg/dl Calcium 9.0 (8.5-10.1) mg/dl Magnesium 1.6 L (1.7-2.4) mg/dl Total Bilirubin 0.3 (0.2-1.0) mg/dl AST 12 L (13-39) U/L ALT 11 (7-52) U/L Alkaline Phosphatase 95 (34-104) U/L Troponin I High Sens 13.7 (0-14) pg/ml Total Protein 6.7 (6.0-8.3) gm/dl Albumin 3.2 L (3.4-5.0) gm/dl Globulin 3.5 (2.5-4.0) gm/dl Albumin/Globulin Ratio 0.9 (0.9-2) Urine Color Urine Appearance (Clear) Urine pH (4.5-7.5) Ur Specific [place] (1.000-1.030) Urine Protein (Negative) Urine Glucose (UA) (Negative) Urine Ketones (Negative) Urine Blood (Negative) Urine Nitrite (Negative) Urine Bilirubin (Negative) Urine Urobilinogen (Negative) Ur Leukocyte Esterase (Negative) Urine WBC (Auto) (0-5) /hpf Urine RBC (Auto) (0-4) /hpf U Hyaline Cast (Auto) (0-5) /lpf U Epithel Cells (Auto) (0-5) /lpf Urine Bacteria (Auto) (Negative) 03/16/22 03/16/22 Range/Units 14:50 16:26 WBC 8.48 (4.8-10.8) K/uL RBC 3.63 L (4.2-5.4) M/uL Hgb 10.1 L (12.0-16.0) g/dL Hct 31.9 L (37-47) % MCV 87.9 (80-100) fL MCH 27.8 (25-34) pg MCHC 31.7 L (32-36) g/dL RDW Std Deviation 51.4 H (36.4-46.3) fL RDW Coeff of Bassem 15.7 H (11.5-14.5) % Plt Count 334 (130-400) K/uL MPV 9.0 (7.4-10.4) fL Immature Gran % (Auto) 0.5 % Neut % (Auto) 74.7 % Lymph % (Auto) 12.6 % Yell % (Auto) 11.7 % Eos % (Auto) 0.4 % Baso % (Auto) 0.1 % Neut # (Auto) 6.34 (1.4-6.5) K/uL Lymph # (Auto) 1.07 L (1.2-3.4) K/uL Yell # (Auto) 0.99 H (0.11-0.59) K/uL Eos # (Auto) 0.03 (0-0.5) K/uL Baso # (Auto) 0.01 (0-0.2) K/uL Immature Gran # (Auto) 0.04 H (0.00-0.02) K/uL PT (9.0-12.0) Seconds INR (0.9-1.1) APTT (21.0-31.0) Seconds PTT Ratio Sodium (136-145) mmol/L Potassium (3.5-5.1) mmol/L Chloride (98-107) mmol/L Carbon Dioxide (21-32) mmol/L Anion Gap (3-11) BUN (6-23) mg/dl Creatinine (0.6-1.2) mg/dl Est Cr Clr Drug Dosing ml/min Est GFR ( Amer) ml/min Est GFR (Non-Af Amer) ml/min BUN/Creatinine Ratio (10-20) Glucose (70-99(Fasting)) mg/dl POC Glucose (70-99) mg/dl Calcium (8.5-10.1) mg/dl Magnesium (1.7-2.4) mg/dl Total Bilirubin (0.2-1.0) mg/dl AST (13-39) U/L ALT (7-52) U/L Alkaline Phosphatase (34-104) U/L Troponin I High Sens (0-14) pg/ml Total Protein (6.0-8.3) gm/dl Albumin (3.4-5.0) gm/dl Globulin (2.5-4.0) gm/dl Albumin/Globulin Ratio (0.9-2) Urine Color Yellow Urine Appearance Clear (Clear) Urine pH 6.5 (4.5-7.5) Ur Specific [place] 1.031 H (1.000-1.030) Urine Protein Negative (Negative) Urine Glucose (UA) Negative (Negative) Urine Ketones Negative (Negative) Urine Blood Negative (Negative) Urine Nitrite Negative (Negative) Urine Bilirubin Negative (Negative) Urine Urobilinogen Negative (Negative) Ur Leukocyte Esterase Trace H (Negative) Urine WBC (Auto) 1-5 (0-5) /hpf Urine RBC (Auto) 0-4 (0-4) /hpf U Hyaline Cast (Auto) 5-10 H (0-5) /lpf U Epithel Cells (Auto) >30 H (0-5) /lpf Urine Bacteria (Auto) Negative (Negative) Administered Medications Discontinued Medications Ioversol (Optiray 320 125ml) 121 ml IV ONCE ONE Stop: 03/16/22 14:40 Last Admin: 03/16/22 14:40 Dose: 121 ml Documented by: [id number] Imaging Data Radiologist's Impression: Chest X-Ray 03/16/22 13:08 SINGLE VIEW CHEST CLINICAL HISTORY: Strokelike symptoms. FINDINGS: An AP, portable, upright chest radiograph is compared to study dated 07/02/2021 and correlated with chest CT dated 09/07/2018. The heart is enlarged. The pulmonary vasculature is noncongested. There is volume loss in the right lung with elevation the right hemidiaphragm. Fibrotic change is seen throughout both lungs, greatest at the apices. Right apical bronchiectasis is similar to previous. There is no airspace consolidation typical for pneumonia or large pleural effusion. No pneumothorax is seen. The skeletal structures are osteopenic. The bony thorax is grossly intact. IMPRESSION: Cardiomegaly and chronic parenchymal changes as above with no acute cardiopulmonary abnormality identified. ACT 112: Negative or not required by law. Electronically signed by: Carlos Fernández M.D. 03/16/2022 2:[address] 03/16/22 13:[address] OF THE BRAIN; CT ANGIOGRAM OF THE BRAIN; CT ANGIOGRAM OF THE NECK CLINICAL HISTORY: Strokelike symptoms. COMPARISON STUDY: CT of the brain dated 07/02/2021. CT angiogram of the head and neck dated 04/07/2021 and 06/10/2020. TECHNIQUE: Unenhanced axial CT scan of the brain is performed. Subsequently, following the IV administration of 121 of Optiray 320, CT angiogram of the head and neck was performed from the aortic arch to the vertex. Images are reviewed in the axial, sagittal, and coronal planes. 3-D MIPS images are created and assessed. IV contrast was administered without complication. All measurements were calculated based on NASCET criteria. A dose lowering technique was utilized adhering to the principles of ALARA. CT DOSE: 971.04 mGy.cm FINDINGS: Brain parenchyma: There is age-related involutional change noting moderate subcortical and periventricular microangiopathic disease. There is no hemorr ester, mass effect, or evidence of acute territorial ischemia by CT criteria. There is no evidence of enhancing mass lesion on the angiogram phase images. The ventricles, sulci, and cisterns are prominent secondary to involutional change. Martel-white matter differentiation is preserved. No extra-axial fluid collection is seen. Thoracic aorta: Visualized portions of the thoracic aorta are normal in caliber. The aortic arch demonstrates standard 3-vessel anatomy. Right carotid arterial system: The right common carotid artery is widely patent, as are the right internal and external carotid arteries. Left carotid arterial system: The left common carotid artery is widely patent, as are the left internal and external carotid arteries. Vertebral arteries: The vertebral arteries are widely patent bilaterally noting left-sided dominance. Subclavian arteries: Widely patent bilaterally. Intracranial vasculature: There is atherosclerotic calcification of the cavernous carotid and vertebral arteries. The internal carotid arteries are patent at the skull base, as are the anterior and middle cerebral arteries bilaterally. There is origin of the right posterior cerebral artery. 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 This is unchanged from previous. The posterior cerebral arteries are otherwise patent. The vertebrobasilar system is patent. The left vertebral artery is dominant. There is no aneurysm or focal vessel cut off seen throughout the intracranial circulation. Jugular veins: Patent bilaterally. Dural sinuses: Patent. Lung apices: Fibrotic change and bronchiectasis is noted in the upper lobes, right greater than left. Soft tissues: The visualized pharyngeal soft tissues are normal in appearance noting angiographic phase technique. The oropharyngeal airway appears widely patent. The salivary and thyroid glands are normal in appearance. No cervical lymphadenopathy is seen. Skeletal structures: The skeletal structures are osteopenic. The calvarium appears intact. The cervical spine is maintained noting multilevel spondylosis. No lytic or blastic lesion is seen. Orbits: The bony orbits are intact. Orbital contents are normal as visualized noting a left ocular lens implant. Sinuses and mastoids: The paranasal sinuses are clear. There is a right mastoid effusion. The left mastoid air cells are well pneumatized. Cerumen is noted in the external auditory canals. IMPRESSION: 1. There is no hemorrhage, mass effect, or evidence of acute territorial ischemia by CT criteria. 2. 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 This is unchanged from prior studies. 3. Otherwise unremarkable CT angiogram of the brain. 4. Unremarkable CT angiogram of the neck. ACT 112: Negative or not required by law. Electronically signed by: Carlos Fernández M.D. 03/16/2022 3:06 PM Head CTA 03/16/22 13:[address] OF THE BRAIN; CT ANGIOGRAM OF THE BRAIN; CT ANGIOGRAM OF THE NECK CLINICAL HISTORY: Strokelike symptoms. COMPARISON STUDY: CT of the brain dated 07/02/2021. CT angiogram of the head and neck dated 04/07/2021 and 06/10/2020. TECHNIQUE: Unenhanced axial CT scan of the brain is performed. Subsequently, following the IV administration of 121 of Optiray 320, CT angiogram of the head and neck was performed from the aortic arch to the vertex. Images are reviewed in the axial, sagittal, and coronal planes. 3-D MIPS images are created and assessed. IV contrast was administered without complication. All measurements were calculated based on NASCET criteria. A dose lowering technique was utilized adhering to the principles of ALARA. CT DOSE: 971.04 mGy.cm FINDINGS: Brain parenchyma: There is age-related involutional change noting moderate subcortical and periventricular microangiopathic disease. There is no hemorrhage, mass effect, or evidence of acute territorial ischemia by CT criteria. There is no evidence of enhancing mass lesion on the angiogram phase images. The ventricles, sulci, and cisterns are prominent secondary to involutional change. Martel-white matter differentiation is preserved. No extra- axial fluid collection is seen. Thoracic aorta: Visualized portions of the thoracic aorta are normal in caliber. The aortic arch demonstrates standard 3-vessel anatomy. Right carotid arterial system: The right common carotid artery is widely patent, as are the right internal and external carotid arteries. Left carotid arterial system: The left common carotid artery is widely patent, as are the left internal and external carotid arteries. Vertebral arteries: The vertebral arteries are widely patent bilaterally noting left-sided dominance. Subclavian arteries: Widely patent bilaterally. Intracranial vasculature: There is atherosclerotic calcification of the cavernous carotid and vertebral arteries. The internal carotid arteries are patent at the skull base, as are the anterior and middle cerebral arteries bilaterally. There is origin of the right posterior cerebral artery. 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 This is unchanged from previous. The posterior cerebral arteries are otherwise patent. The vertebrobasilar system is patent. The left vertebral artery is dominant. There is no aneurysm or focal vessel cut off seen throughout the intracranial circulation. Jugular veins: Patent bilaterally. Dural sinuses: Patent. Lung apices: Fibrotic change and bronchiectasis is noted in the upper lobes, right greater than left. Soft tissues: The visualized pharyngeal soft tissues are normal in appearance noting angiographic phase technique. The oropharyngeal airway appears widely patent. The salivary and thyroid glands are normal in appearance. No cervical lymphadenopathy is seen. Skeletal structures: The skeletal structures are osteopenic. The calvarium appears intact. The cervical spine is maintained noting multilevel spondylosis. No lytic or blastic lesion is seen. Orbits: The bony orbits are intact. Orbital contents are normal as visualized noting a left ocular lens implant. Sinuses and mastoids: The paranasal sinuses are clear. There is a right mastoid effusion. The left mastoid air cells are well pneumatized. Cerumen is noted in the external auditory canals. IMPRESSION: 1. There is no hemorrhage, mass effect, or evidence of acute territorial ischemia by CT criteria. 2. 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 This is unchanged from prior studies. 3. Otherwise unremarkable CT angiogram of the brain. 4. Unremarkable CT angiogram of the neck. ACT 112: Negative or not required by law. Electronically signed by: Carlos Fernández M.D. 03/16/2022 3:06 PM Neck CTA 03/16/22 13:[address] OF THE BRAIN; CT ANGIOGRAM OF THE BRAIN; CT ANGIOGRAM OF THE NECK CLINICAL HISTORY: Strokelike symptoms. COMPARISON STUDY: CT of the brain dated 07/02/2021. CT angiogram of the head and neck dated 04/07/2021 and 06/10/2020. TECHNIQUE: Unenhanced axial CT scan of the brain is performed. Subsequently, following the IV administration of 121 of Optiray 320, CT angiogram of the head and neck was performed from the aortic arch to the vertex. Images are reviewed in the axial, sagittal, and coronal planes. 3-D MIPS images are created and assessed. IV contrast was administered without complication. All measurements were calculated based on NASCET criteria. A dose lowering technique was utilized adhering to the principles of ALARA. CT DOSE: 971.04 mGy.cm FINDINGS: Brain parenchyma: There is age-related involutional change noting moderate subcortical and periventricular microangiopathic disease. There is no hemorrhage , mass effect, or evidence of acute territorial ischemia by CT criteria. There is no evidence of enhancing mass lesion on the angiogram phase images. The ventricles, sulci, and cisterns are prominent secondary to involutional change. Martel-white matter differentiation is preserved. No extra-axial fluid collection is seen. Thoracic aorta: Visualized portions of the thoracic aorta are normal in caliber. The aortic arch demonstrates standard 3-vessel anatomy. Right carotid arterial system: The right common carotid artery is widely patent, as are the right internal and external carotid arteries. Left carotid arterial system: The left common carotid artery is widely patent, as are the left internal and external carotid arteries. Vertebral arteries: The vertebral arteries are widely patent bilaterally noting left-sided dominance. Subclavian arteries: Widely patent bilaterally. Intracranial vasculature: There is atherosclerotic calcification of the cavernous carotid and vertebral arteries. The internal carotid arteries are patent at the skull base, as are the anterior and middle cerebral arteries bilaterally. There is origin of the right posterior cerebral artery. 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 This is unchanged from previous. The posterior cerebral arteries are otherwise patent. The vertebrobasilar system is patent. The left vertebral artery is dominant. There is no aneurysm or focal vessel cut off seen throughout the intracranial circulation. Jugular veins: Patent bilaterally. Dural sinuses: Patent. Lung apices: Fibrotic change and bronchiectasis is noted in the upper lobes, right greater than left. Soft tissues: The visualized pharyngeal soft tissues are normal in appearance noting angiographic phase technique. The oropharyngeal airway appears widely patent. The salivary and thyroid glands are normal in appearance. No cervical lymphadenopathy is seen. Skeletal structures: The skeletal structures are osteopenic. The calvarium appears intact. The cervical spine is maintained noting multilevel spondylosis. No lytic or blastic lesion is seen. Orbits: The bony orbits are intact. Orbital contents are normal as visualized noting a left ocular lens implant. Sinuses and mastoids: The paranasal sinuses are clear. There is a right mastoid effusion. The left mastoid air cells are well pneumatized. Cerumen is noted in the external auditory canals. IMPRESSION: 1. There is no hemorrhage, mass effect, or evidence of acute territorial ischemia by CT criteria. 2. 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 This is unchanged from prior studies. 3. Otherwise unremarkable CT angiogram of the brain. 4. Unremarkable CT angiogram of the neck. ACT 112: Negative or not required by law. Electronically signed by: Carlos Fernández M.D. 03/16/2022 3:06 PM Discharge Plan Visit Data Chief Complaint: Stroke/CVA Symptoms Stated Complaint: TIA SX ED Provider: Luis Fernandez Discharge Problem: Brain TIA, Anemia, Acute hypokalemia Forms Stand Alone Forms: [facility] Prescriptions Prescriptions: No Action folic acid 1 mg Tablet 1 mg PO QAM Qty: 0 RF: 0 cholecalciferol (vitamin D3) 1,000 unit Capsule 1,000 unit PO QAM Qty: 0 RF: 0 atorvastatin [Lipitor] 20 mg Tablet 20 mg PO QAM Qty: 0 RF: 0 Eliquis 2.5 mg Tablet 2.5 mg PO BID Qty: 0 RF: 0 cyanocobalamin (vitamin B-12) 1,000 mcg Capsule 2,000 mcg PO QAM Qty: 0 RF: 0 Lumigan 0.01 % Drops 1 drp OPB HS RF: 0 psyllium Powder See Rx Instructions .ROUTE .COMPLEX RF: 0 timolol maleate 0.5 % drops 1 drp OPL QAM RF: 0 gabapentin 100 mg capsule 200 mg PO HS Qty: 60 RF: 5 levothyroxine [Synthroid] 75 mcg tablet 75 mcg PO QAM RF: 0 nitrofurantoin macrocrystal 50 mg capsule 50 mg PO HS RF: 0 risperidone 0.5 mg tablet 0.5 mg PO HS RF: 0 aspirin [Aspirin Childrens] 81 mg Tablet,Chewable 81 mg PO QAM RF: 0 Artificial Tears (PF) Dropperette 1 drp OPB .EVERY 2 HOURS W/A RF: 0 acetaminophen 325 mg Tablet 650 mg PO QID MDD 3g PRN (Reason: Fever Or Pain) RF: 0 lisinopril 2.5 mg Tablet 2.5 mg PO HS Qty: 30 RF: 0 donepezil 5 mg tablet 5 mg PO DAILY RF: 0 ferrous sulfate [iron] 325 mg (65 mg iron) Tablet 325 mg PO DAILY RF: 0 docusate sodium 100 mg Capsule 100 mg PO Q24H PRN (Reason: Constipation) RF: 0 Biofreeze (menthol) 4 % Gel 1 applic TOPICAL Q4H PRN (Reason: Pain) RF: 0 Women's Probiotic 25B cell-25B cell-50 mg Capsule 0 cap PO DAILY RF: 0 apixaban 2.5 MG 2.5 mg PO BID RF: 0 Referrals Referrals: Satnam Ng Marfa [Primary Care Provider] - Discharge Problem: Anemia Qualifiers: Anemia type: unspecified type Qualified Code(s): D64.9 - Anemia, unspecified
[2022-03-16 14:09] LABS: Partial Thromboplastin Ratio 0.8; Partial Thromboplastin Time 22.6 Seconds (21.0-31.0)
[2022-03-16 14:16] LABS: Albumin Globulin Ratio 0.9 (0.9-2); Albumin Level 3.2 gm/dl (3.4-5.0); BUN Creatinine Ratio 25.8 (10-20); Bilirubin,Total 0.3 mg/dl (0.2-1.0); Creatinine Clr Calc Pharmacy 42.3 ml/min; Est GFR (African American) 91.4 ml/min; Est GFR (Non-African American) 78.9 ml/min; Globulin 3.5 gm/dl (2.5-4.0); Magnesium 1.6 mg/dl (1.7-2.4); Potassium 3.8 mmol/L (3.5-5.1); Total Protein 6.7 gm/dl (6.0-8.3)
--- NOTE | 2022-03-16 14:18 | XRay Report ---
SINGLE VIEW CHEST CLINICAL HISTORY: Strokelike symptoms. FINDINGS: An AP, portable, upright chest radiograph is compared to study dated 07/02/2021 and correlat ed with chest CT dated 09/07/2018. The heart is enlarged. The pulmonary vasculature is noncongested. There is volume loss in the right lung with elevation the right hemidiaphragm. Fibrotic change is see n throughout both lungs, greatest at the apices. Right apical bronchiectasis is similar to previous. There is no airspace consolidation typical for pneumonia or large pleural effusion. No pneumothorax i s seen. The skeletal structures are osteopenic. The bony thorax is grossly intact. IMPRESSION: Cardiomegaly and chronic parenchymal changes as above with no acute cardiopulmonary abnor mality identified. ACT 112: Negative or not required by law. Electronically signed by: Carlos Fernández M.D. 03/16/2022 2:17 PM
[2022-03-16 14:22] LABS: Troponin I High Sensitivity 13.7 pg/ml (0-14)
[2022-03-16] MEDS ORDERED: OPTIRAY 320 125ml IV ONE (14:39)
--- NOTE | 2022-03-16 14:59 | Electrocardiogram Report ---
Test Reason : Blood Pressure : / mmHG Vent. Rate : 068 BPM Atrial Rate : 068 BPM P-R Int : 150 ms QRS Dur : 094 ms QT Int : 432 ms P-R-T Axes : 074 034 054 degrees QTc Int : 459 ms Normal sinus rhythm Nonspecific ST abnormality Abnormal ECG When compared with ECG of 22-JUN-2021 20:48, Aberrant conduction is no longer Present Confirmed by Daryl Fernandez ([id number]) on 03/16/2022 2:58:14 PM Referred By: REFERRED SELF Confirmed By:Daryl Fernandez
--- NOTE | 2022-03-16 15:08 | CT Scan Report ---
UNENHANCED CT OF THE BRAIN; CT ANGIOGRAM OF THE BRAIN; CT ANGIOGRAM OF THE NECK CLINICAL HISTORY: Strokelike symptoms. COMPARISON STUDY: CT of the brain dated 07/02/2021. CT angiogram of the head and neck dated 04/07/2021 and 06/10/2020. TECHNIQUE: Unenhanced axial CT scan of the brain is performed. Subsequently, following the IV adminis tration of 121 of [address] 320, CT angiogram of the head and neck was performed from the aortic arch t o the vertex. Images are reviewed in the axial, sagittal, and coronal planes. 3-D MIPS images are cre ated and assessed. IV contrast was administered without complication. All measurements were calculate d based on NASCET criteria. A dose lowering technique was utilized adhering to the principles of ALA RA. CT DOSE: 971.04 mGy.cm FINDINGS: Brain parenchyma: There is age-related involutional change noting moderate subcortical and periventri cular microangiopathic disease. There is no hemorrhage, mass effect, or evidence of acute territorial ischemia by CT criteria. There is no evidence of enhancing mass lesion on the angiogram phase images . The ventricles, sulci, and cisterns are prominent secondary to involutional change. Martel-white yee er differentiation is preserved. No extra-axial fluid collection is seen. Thoracic aorta: Visualized portions of the thoracic aorta are normal in caliber. The aortic arch demo nstrates standard 3-vessel anatomy. Right carotid arterial system: The right common carotid artery is widely patent, as are the right int ernal and external carotid arteries. Left carotid arterial system: The left common carotid artery is widely patent, as are the left automotive internet sales consultant al and external carotid arteries. Vertebral arteries: The vertebral arteries are widely patent bilaterally noting left-sided dominance. Subclavian arteries: Widely patent bilaterally. Intracranial vasculature: There is atherosclerotic calcification of the cavernous carotid and vertebr al arteries. The internal carotid arteries are patent at the skull base, as are the anterior and midd le cerebral arteries bilaterally. There is origin of the right posterior cerebral artery. 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 This is u nchanged from previous. The posterior cerebral arteries are otherwise patent. The vertebrobasilar sys tem is patent. The left vertebral artery is dominant. There is no aneurysm or focal vessel cut off se en throughout the intracranial circulation. Jugular veins: Patent bilaterally. Dural sinuses: Patent. Lung apices: Fibrotic change and bronchiectasis is noted in the upper lobes, right greater than left. Soft tissues: The visualized pharyngeal soft tissues are normal in appearance noting angiographic pha se technique. The oropharyngeal airway appears widely patent. The salivary and thyroid glands are nor mal in appearance. No cervical lymphadenopathy is seen. Skeletal structures: The skeletal structures are osteopenic. The calvarium appears intact. The cervic al spine is maintained noting multilevel spondylosis. No lytic or blastic lesion is seen. Orbits: The bony orbits are intact. Orbital contents are normal as visualized noting a left ocular le ns implant. Sinuses and mastoids: The paranasal sinuses are clear. There is a right mastoid effusion. The left ma stoid air cells are well pneumatized. Cerumen is noted in the external auditory canals. IMPRESSION: 1. There is no hemorrhage, mass effect, or evidence of acute territorial ischemia by CT criteria. 2. 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 This is unchan ged from prior studies. 3. Otherwise unremarkable CT angiogram of the brain. 4. Unremarkable CT angiogram of the neck. ACT 112: Negative or not required by law. Electronically signed by: Carlos Fernández M.D. 03/16/2022 3:06 PM
[2022-03-16 15:09] LABS: Appearance Urine Clear (Clear); Bacteria Urine Automated Negative (Negative); Bilirubin Urine Negative (Negative); Blood Urine Negative (Negative); Color Urine Yellow; Epithelial Cell Urine Auto >30 /lpf (0-5); Glucose Urine UA Negative (Negative); Ketones Urine Negative (Negative); Leukocyte Esterase Urine Trace (Negative); Nitrite Urine Negative (Negative); Protein Urine Negative (Negative); RBC Urine Automated 0-4 /hpf (0-4); Specific Gravity Urine 1.031 (1.000-1.030); Urobilinogen Urine Negative (Negative); pH Urine 6.5 (4.5-7.5)
[2022-03-16 16:56] LABS: Basophils # (auto) 0.01 K/uL (0-0.2); Basophils % (auto) 0.1 %; Eosinophils # (auto) 0.03 K/uL (0-0.5); Eosinophils % (auto) 0.4 %; Hematocrit (blood only) 31.9 % (37-47); Hemoglobin 10.1 g/dL (12.0-16.0); Immature Granulocytes # (auto) 0.04 K/uL (0.00-0.02); Immature Granulocytes % (auto) 0.5 %; Lymphocytes # (auto) 1.07 K/uL (1.2-3.4); Lymphocytes % (auto) 12.6 %; Mean Corpuscular Hemoglobin 27.8 pg (25-34); Mean Corpuscular Hgb Conc 31.7 g/dL (32-36); Mean Corpuscular Volume 87.9 fL (80-100); Monocytes # (auto) 0.99 K/uL (0.11-0.59); Monocytes % (auto) 11.7 %; Neutrophils # (auto) 6.34 K/uL (1.4-6.5); Neutrophils % (auto) 74.7 %; Platelet Count 334 K/uL (130-400); RDW Coefficient of Variation 15.7 % (11.5-14.5); RDW Standard Deviation 51.4 fL (36.4-46.3); Red Blood Count 3.63 M/uL (4.2-5.4); White Blood Count 8.48 K/uL (4.8-10.8)
[2022-03-16] MEDS ORDERED: PHARMACIST DISCHARGE MED REC CONSULT PRN (17:01)
--- NOTE | 2022-03-16 17:12 | History & Physical Report ---
Date of Service March 16, 2022 Assessment & Plan (1) Stroke-like symptoms: Plan: Patient is a resident at [facility], per the staff patient had left-sided weakness, left upper extremity weakness/flaccid LUE, difficulty standing, possibly left leg weakness Reportedly episode lasted for about 20 minutes Patient does not remember the episode very well CT head, CTA head and neck obtained in the ED without any new acute pathology There is high grade stenosis of proximal right posterior cerebral artery noted however unchanged from previous study. UA also obtained, unremarkable Labs reviewed, unremarkable Chest x-ray reviewed unremarkable On physical exam, patient is moving extremities, however gait was not assessed Ordered MRI brain, negative for any acute intracranial abnormality Therefore will continue patient's apixaban and aspirin Also continue statin Obtain fasting lipid panel, A1c For now we will hold lisinopril Will obtain PT OT, speech eval Will observe on telemetry overnight Will further discuss with neurology tomorrow pAfib -Continue Eliquis, EKG in ED shows normal sinus rhythm HTN -For now we will hold lisinopril -Allowing for permissive hypertension, also patient received contrast with her brain imaging (monitor for YRIS before restarting lisinopril) Hx of TIA -Continue aspirin, statin, Eliquis Hypothyroidism -Continue thyroxine History of hallucinations -For now we will hold risperidone, and gabapentin -If no changes overnight, will restart on discharge DVT ppx: Eliquis Code: DNR/DNI History of Present Illness Chief Complaint: Left-sided weakness Primary Care Provider: Berenice Hay at [place] Pt is an 86 F, resident at [facility], medical hx significant for HTN, PAFib/ hx PE/MTHFR mutation as per records on Apixaban, history of TIA, vascular dementia, 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 Per ED documentation, staff reported left-sided weakness, LUE became flaccid at noon and episode lasted about 20 min. They also reported that patient had difficulty standing/left lower extremity weakness. Symptoms resolved prior to coming to the ED. Per EMS, no focal deficits. I called Berenice, however without answer. We will try to contact them again, to obtain more thorough history. Patient herself does not remember episode very well. She only remembers that she was sitting in a wheelchair, and possibly felt weak on the left side. She denies any recent sickness. Specifically denies any fevers, chills, chest pain, shortness of breath, abdominal pain, nausea or vomiting. Denies any headache. History of blindness, therefore no changes in vision noted. In the ED CT head, CTA head and neck unremarkable. 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 UA was also obtained, and unremarkable. Patient does not have any urinary symptoms at this time. Chest x-ray unremarkable, labs reviewed, un remarkable. Patient admitted for observation. Allergies Allergy/AdvReac Type Severity Reaction Status Date / Time tetanus toxoid, adsorbed Allergy Mild SWELLING Verified 03/16/22 14:08 AND REDNESS sulfamethoxazole AdvReac Dizziness Verified 03/16/22 14:08 [From Bactrim] trimethoprim [From Bactrim] AdvReac Dizziness Verified 03/16/22 14:08 Home Medications Medication Instructions Recorded Confirmed Type cholecalciferol (vitamin D3) 25 1,000 unit PO QAM #0 03/21/17 03/16/22 History mcg (1,000 unit) capsule folic acid 1 mg tablet 1 mg PO QAM #0 03/21/17 03/16/22 History atorvastatin 20 mg tablet (Lipitor) 20 mg PO QAM #0 tab 02/11/18 03/16/22 History apixaban 2.5 mg tablet (Eliquis) 2.5 mg PO BID #0 tab 03/29/18 03/16/22 History cyanocobalamin (vitamin B-12) 2,000 mcg PO QAM #0 03/29/18 03/16/22 History 1,000 mcg capsule bimatoprost 0.01 % eye drops 1 drp OPB HS 10/11/18 03/16/22 History (Lumigan) gabapentin 100 mg capsule 200 mg PO HS #60 cap 10/15/18 03/16/22 Rx levothyroxine 75 mcg tablet 75 mcg PO QAM 03/26/19 03/16/22 History (Synthroid) psyllium See Rx Instructions .ROUTE .COMPLEX 12/12/20 03/16/22 History timolol maleate 0.5 % eye drops 1 drp OPL QAM 12/12/20 03/16/22 History nitrofurantoin macrocrystal 50 mg 50 mg PO HS 06/22/21 03/16/22 History capsule risperidone 0.5 mg tablet 0.5 mg PO HS 06/22/21 03/16/22 History acetaminophen 325 mg tablet 650 mg PO QID PRN MDD 3g 07/02/21 03/16/22 History aspirin 81 mg chewable tablet 81 mg PO QAM 07/02/21 03/16/22 History (Aspirin Childrens) dextran 70-hypromellose eye drops 1 drp OPB .EVERY 2 HOURS W/A 07/02/21 03/16/22 History in a dropperette (Artificial Tears (PF)) lisinopril 2.5 mg tablet 2.5 mg PO HS #30 tab 07/05/21 03/16/22 Rx Lactobacillus 25 billion 0 cap PO DAILY 03/16/22 03/16/22 History cell-Bifido 25 billion [id number] capsule (Women's Probiotic) apixaban 2.5 mg PO BID 03/16/22 03/16/22 History docusate sodium 100 mg capsule 100 mg PO Q24H PRN 03/16/22 03/16/22 History donepezil 5 mg tablet 5 mg PO DAILY 03/16/22 03/16/22 History ferrous sulfate 325 mg (65 mg 325 mg PO DAILY 03/16/22 03/16/22 History iron) tablet (iron) menthol 4 % topical gel (Biofreeze 1 applic TOPICAL Q4H PRN 03/16/22 03/16/22 History (menthol)) Past Med/Surg History Medical History Acute confusion Atrial fibrillation Atrial fibrillation with RVR Central retinal vein occlusion of right eye Dyslipidemia History of breast cancer "intraductal carcinoma left breast, s/p lumpectomy" History of osteoporosis History of pulmonary embolism HTN (hypertension) Hx of MTHFR mutation LUE weakness Numbness of left hand Papillary carcinoma of thyroid SBO (small bowel obstruction) Small bowel obstruction UGIB (upper gastrointestinal bleed) Uterine prolapse UTI (urinary tract infection) Surgical History H/O oophorectomy History of bladder surgery History of cataract surgery History of hysterectomy S/P exploratory laparotomy lysis of adhesions Status post partial mastectomy "left breast, DCIS" Family History Father Stroke Hypertension Mother Heart disease Social History Smoking Status: Never smoker Second Hand Exposure: No; Hx Alcohol Use: No Hx Substance Use: No Preferred Language: Thai Communication Ability: Effective Visual Impairment: Limited Hearing Ability: Normal Supervisor Plate Pasting Required: No Beliefs That Will Affect Care: None marital status: / Current Living Situation: Shelter Current Living Situation Comment: [employer]givers 3x week, daughter lives next door current occupational status: retired Other Information That Helps Us Care for You: No Feels Safe at Home: Yes Safety Concerns: Feels Safe At This Time Assistive Devices: Walker Review of Systems Review of Systems: All systems reviewed & are unremarkable except as noted in Subjective Physical Exam Constitutional: WD/WN, vitals as above Eyes: pt blind ENMT: external ear and nose normal, oropharynx normal Neck: trachea midline, no thyromegaly Respiratory: normal respiratory effort, lungs clear to auscultation Cardiovascular: RRR, no murmur, no edema Chest (Breasts): Chest: normal inspection of chest Gastrointestinal (Abdomen): normal bowel sounds, soft, nontender, no hepatosplenomegaly Musculoskeletal: no cyanosis or clubbing, extremities motor strength 5/5 Head/Neck/Chest: normocephalic, head atraumatic and neck supple Skin: no rashes, warm and dry Neurologic: Speech fluent, no facial asymmetry. Moves extremities. Strength 5 out of 5. Gait not assessed Psychiatric: A+Ox3, euthymic affect Genitourinary: no CVA tenderness Lymphatic: no lymphedema Results & Data Results & Data ([facility]) Vital Signs (Past 12 Hours) Vital Signs Temp Pulse Resp BP Pulse Ox 03/16/22 14:27 136/68 98 03/16/22 14:00 68 14 98 03/16/22 13:30 71 16 97 03/16/22 13:13 71 17 96 03/16/22 13:12 36.9 C 66 20 112/68 96 Laboratory Results 03/16/22 03/16/22 03/16/22 Range/Units 16:26 14:50 13:40 WBC 8.48 (4.8-10.8) K/uL RBC 3.63 L (4.2-5.4) M/uL Hgb 10.1 L (12.0-16.0) g/dL Hct 31.9 L (37-47) % MCV 87.9 (80-100) fL MCH 27.8 (25-34) pg MCHC 31.7 L (32-36) g/dL RDW Std Deviation 51.4 H (36.4-46.3) fL RDW Coeff of Bassem 15.7 H (11.5-14.5) % Plt Count 334 (130-400) K/uL MPV 9.0 (7.4-10.4) fL Immature Gran % (Auto) 0.5 % Neut % (Auto) 74.7 % Lymph % (Auto) 12.6 % Hughes % (Auto) 11.7 % Eos % (Auto) 0.4 % Baso % (Auto) 0.1 % Neut # (Auto) 6.34 (1.4-6.5) K/uL Lymph # (Auto) 1.07 L (1.2-3.4) K/uL Hughes # (Auto) 0.99 H (0.11-0.59) K/uL Eos # (Auto) 0.03 (0-0.5) K/uL Baso # (Auto) 0.01 (0-0.2) K/uL Immature Gran # (Auto) 0.04 H (0.00-0.02) K/uL PT (9.0-12.0) Seconds INR (0.9-1.1) APTT (21.0-31.0) Seconds PTT Ratio Sodium 134 L (136-145) mmol/L Potassium 3.8 (3.5-5.1) mmol/L Chloride 98 (98-107) mmol/L Carbon Dioxide 30 (21-32) mmol/L Anion Gap 6 (3-11) BUN 17 (6-23) mg/dl Creatinine 0.66 (0.6-1.2) mg/dl Est Cr Clr Drug Dosing 42.3 ml/min Est GFR ( Amer) 91.4 ml/min Est GFR (Non-Af Amer) 78.9 ml/min BUN/Creatinine Ratio 25.8 H (10-20) Glucose 87 (70-99(Fasting)) mg/dl POC Glucose (70-99) mg/dl Calcium 9.0 (8.5-10.1) mg/dl Magnesium 1.6 L (1.7-2.4) mg/dl Total Bilirubin 0.3 (0.2-1.0) mg/dl AST 12 L (13-39) U/L ALT 11 (7-52) U/L Alkaline Phosphatase 95 (34-104) U/L Troponin I High Sens 13.7 (0-14) pg/ml Total Protein 6.7 (6.0-8.3) gm/dl Albumin 3.2 L (3.4-5.0) gm/dl Globulin 3.5 (2.5-4.0) gm/dl Albumin/Globulin Ratio 0.9 (0.9-2) Urine Color Yellow Urine Appearance Clear (Clear) Urine pH 6.5 (4.5-7.5) Ur Specific [place] 1.031 H (1.000-1.030) Urine Protein Negative (Negative) Urine Glucose (UA) Negative (Negative) Urine Ketones Negative (Negative) Urine Blood Negative (Negative) Urine Nitrite Negative (Negative) Urine Bilirubin Negative (Negative) Urine Urobilinogen Negative (Negative) Ur Leukocyte Esterase Trace H (Negative) Urine WBC (Auto) 1-5 (0-5) /hpf Urine RBC (Auto) 0-4 (0-4) /hpf U Hyaline Cast (Auto) 5-10 H (0-5) /lpf U Epithel Cells (Auto) >30 H (0-5) /lpf Urine Bacteria (Auto) Negative (Negative) 03/16/22 03/16/22 Range/Units 13:40 13:28 WBC (4.8-10.8) K/uL RBC (4.2-5.4) M/uL Hgb (12.0-16.0) g/dL Hct (37-47) % MCV (80-100) fL MCH (25-34) pg MCHC (32-36) g/dL RDW Std Deviation (36.4-46.3) fL RDW Coeff of Bassem (11.5-14.5) % Plt Count (130-400) K/uL MPV (7.4-10.4) fL Immature Gran % (Auto) % Neut % (Auto) % Lymph % (Auto) % Hughes % (Auto) % Eos % (Auto) % Baso % (Auto) % Neut # (Auto) (1.4-6.5) K/uL Lymph # (Auto) (1.2-3.4) K/uL Hughes # (Auto) (0.11-0.59) K/uL Eos # (Auto) (0-0.5) K/uL Baso # (Auto) (0-0.2) K/uL Immature Gran # (Auto) (0.00-0.02) K/uL PT 11.0 (9.0-12.0) Seconds INR 1.0 (0.9-1.1) APTT 22.6 (21.0-31.0) Seconds PTT Ratio 0.8 Sodium (136-145) mmol/L Potassium (3.5-5.1) mmol/L Chloride (98-107) mmol/L Carbon Dioxide (21-32) mmol/L Anion Gap (3-11) BUN (6-23) mg/dl Creatinine (0.6-1.2) mg/dl Est Cr Clr Drug Dosing ml/min Est GFR ( Amer) ml/min Est GFR (Non-Af Amer) ml/min BUN/Creatinine Ratio (10-20) Glucose (70-99(Fasting)) mg/dl POC Glucose 102 H (70-99) mg/dl Calcium (8.5-10.1) mg/dl Magnesium (1.7-2.4) mg/dl Total Bilirubin (0.2-1.0) mg/dl AST (13-39) U/L ALT (7-52) U/L Alkaline Phosphatase (34-104) U/L Troponin I High Sens (0-14) pg/ml Total Protein (6.0-8.3) gm/dl Albumin (3.4-5.0) gm/dl Globulin (2.5-4.0) gm/dl Albumin/Globulin Ratio (0.9-2) Urine Color Urine Appearance (Clear) Urine pH (4.5-7.5) Ur Specific [place] (1.000-1.030) Urine Protein (Negative) Urine Glucose (UA) (Negative) Urine Ketones (Negative) Urine Blood (Negative) Urine Nitrite (Negative) Urine Bilirubin (Negative) Urine Urobilinogen (Negative) Ur Leukocyte Esterase (Negative) Urine WBC (Auto) (0-5) /hpf Urine RBC (Auto) (0-4) /hpf U Hyaline Cast (Auto) (0-5) /lpf U Epithel Cells (Auto) (0-5) /lpf Urine Bacteria (Auto) (Negative) Diagnostic Findings CXR FINDINGS: An AP, portable, upright chest radiograph is compared to study dated 07/02/2021 and correlated with chest CT dated 09/07/2018. The heart is enlarged. The pulmonary vasculature is noncongested. There is volume loss in the right lung with elevation the right hemidiaphragm. Fibrotic change is seen throughout both lungs, greatest at the apices. Right apical bronchiectasis is similar to previous. There is no airspace consolidation typical for pneumonia or large pleural effusion. No pneumothorax is seen. The skeletal structures are osteopenic. The bony thorax is grossly intact. IMPRESSION: Cardiomegaly and chronic parenchymal changes as above with no acute cardiopulmonary abnormality identified. CT head, CTA head and neck IMPRESSION: 1. There is no hemorrhage, mass effect, or evidence of acute territorial ischemia by CT criteria. 2. 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 This is unchanged from prior studies. 3. Otherwise unremarkable CT angiogram of the brain. 4. Unremarkable CT angiogram of the neck.
[2022-03-16] MEDS ORDERED: GADOBUTROL 7.5ML VIAL IV ONE (17:51)
--- NOTE | 2022-03-16 18:19 | Magnetic Resonance Report ---
MRI OF THE BRAIN COMBO CLINICAL HISTORY: Strokelike symptoms. COMPARISON STUDY: CT of the brain dated 03/16/2022. MRI of the brain dated 12/12/2020. TECHNIQUE: MRI of the brain was performed utilizing various T1 and T2-weighted sequences in the axial , sagittal, and coronal planes. Contrast-enhanced sequences were acquired following the administratio n of 5 cc of Gadavist. FINDINGS: Brain parenchyma: There is age-related involutional change noting moderate confluent subcortical and periventricular microangiopathic disease. There is no hemorrhage or mass effect. There is no restrict ed diffusion to suggest acute ischemia. No enhancing mass lesion is identified on the postcontrast im ages. Mratel-white matter differentiation is preserved. No extra-axial fluid collection is seen. The ce rebellar tonsils are normal in configuration. Ventricles, sulci, and cisterns: Prominent secondary to involutional change. Pituitary and sella: Unremarkable. Intracranial vasculature: Normal flow voids are maintained at the skull base. Orbits: The bony orbits are grossly intact. Orbital contents are normal in appearance noting a left o cular lens implant. Sinuses and mastoids: A large left mastoid effusions. The paranasal sinuses appear clear. Calvarium: Unremarkable. Cervical cord: Partially visualized cervical spinal cord is normal in morphology and signal intensity . IMPRESSION: No acute intracranial abnormality. ACT 112: Negative or not required by law. Electronically signed by: Carlos Fernández M.D. 03/16/2022 6:16 PM
[2022-03-16] MEDS: SODIUM CHLORIDE 0.9% 1000ML 1,000 ML IV SCH (18:54)
[2022-03-16] MEDS ORDERED: DOCUSATE SODIUM 100 MG CAP PO PRN (22:12)
[2022-03-16] MEDS ORDERED: NON-FORMULARY MEDICATION (Menthol [Biofreeze (Menthol)] 4 % Gel) TOP PRN (22:12)
[2022-03-16] MEDS ORDERED: ACETAMINOPHEN 325 MG TAB PO PRN (22:12)
[2022-03-16] MEDS ORDERED: APIXABAN 2.5 MG PO SCH (22:12)
[2022-03-16] MEDS: BIMATOPROST 0.01% OP SOLN 2.5 ML BTL OP SCH (23:24)
[2022-03-16] MEDS: APIXABAN 2.5 MG TAB PO SCH (23:26)
[2022-03-17] MEDS: LEVOTHYROXINE SODIUM 75 MCG TABLET PO SCH (05:52)
[2022-03-17] MEDS ORDERED: ARTIFICIAL TEARS OP PRN (06:00)
[2022-03-17 07:21] LABS: Basophils # (auto) 0.01 K/uL (0-0.2); Basophils % (auto) 0.1 %; Eosinophils # (auto) 0.04 K/uL (0-0.5); Eosinophils % (auto) 0.5 %; Hematocrit (blood only) 32.8 % (37-47); Hemoglobin 10.4 g/dL (12.0-16.0); Immature Granulocytes # (auto) 0.02 K/uL (0.00-0.02); Immature Granulocytes % (auto) 0.3 %; Lymphocytes # (auto) 0.88 K/uL (1.2-3.4); Lymphocytes % (auto) 11.2 %; Mean Corpuscular Hemoglobin 28.1 pg (25-34); Mean Corpuscular Hgb Conc 31.7 g/dL (32-36); Mean Corpuscular Volume 88.6 fL (80-100); Mean Platelet Volume 9.2 fL (7.4-10.4); Monocytes % (auto) 8.9 %; Neutrophils # (auto) 6.22 K/uL (1.4-6.5); Platelet Count 328 K/uL (130-400); RDW Coefficient of Variation 15.9 % (11.5-14.5); RDW Standard Deviation 51.3 fL (36.4-46.3); White Blood Count 7.87 K/uL (4.8-10.8)
[2022-03-17 07:39] LABS: BUN Creatinine Ratio 26.1 (10-20); Calcium 8.6 mg/dl (8.5-10.1); Creatinine Clr Calc Pharmacy 60.7 ml/min; Est GFR (African American) 102.9 ml/min; Est GFR (Non-African American) 88.8 ml/min; Magnesium 1.6 mg/dl (1.7-2.4); Phosphorus 3.3 mg/dl (2.5-4.9); Potassium 3.5 mmol/L (3.5-5.1)
[2022-03-17] MEDS ORDERED: POTASSIUM CHLORIDE CRTAB 20 MEQ TABCR PO STA (09:14)
--- NOTE | 2022-03-17 09:15 | Hospitalist Progress Note ---
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 UA also obtained, unremarkable Labs reviewed, unremarkable Chest x-ray reviewed unremarkable On physical exam, patient is moving extremities, however gait was not assessed Ordered MRI brain, negative for any acute intracranial abnormality Therefore will continue patient's apixaban and aspirin Also continue statin Obtained fasting lipid panel, LDL 38 Current A1c5.8% PT OT, speech eval telemetry Neurology consulted Obtain echo - pending Consider adding gabapentin 100 qam for a week (to 200 mg HS), then increase to 200 BID This could be prophylactic both for migrainous phenomenon and for seizure.She should see Dr. Caro in followup in 2-3 weeks. pAfib -Continue Eliquis, EKG in ED shows normal sinus rhythm HTN -cont. lisinopril Hx of TIA -Continue aspirin, statin, Eliquis Hypothyroidism -Continue thyroxine History of hallucinations -cont. risperidone, and gabapentin DVT ppx: Eliquis Code: DNR/DNI Admission and Anticipated Discharge Date Admission Date: March 16, 2022 Subjective Patient seen in follow-up of left-sided weakness Currently patient has no symptoms, she is moving extremities Denies fevers, chills, chest pain, shortness of breath, abdominal pain, nausea vomiting MRI brain negative for any acute intracranial pathology Review of Systems Review of Systems: All systems reviewed & are unremarkable except as noted in Subjective Physical Exam Physical Exam: Constitutional:L WD/WN, vitals as a suze Eyes: pt blind ENMT: external ear and n ose normal, oropha rynx normal Neck: supple Respiratory: normal respiratory effort, lungs kvng ar to auscultation Cardiovascular:L RRR, no murmur, no edema Chest (Breasts): Chest: normal insp ection of chest Gastrointestinal ( Abdomen): normal bowel sound s, soft, nontender Musculoskeletal: extremities motor strength 5/5 Head /Neck/Chest: normo cephalic, head atr aumatic and neck s upple Skin: no rashes, warm an d dry Neurologic: Speech fluent, no facial asymmetry. Moves extremities . Strength 5 out of 5. Gait not as sessed Psychiatric: A+Ox3, euthymic af fect Results & Data Results & Data ([facility]) Vital Signs (Past 12 Hours) Vital Signs Temp Pulse Pulse Resp BP Pulse Ox 03/17/22 06:23 36.5 C 71 16 179/92 H 95 03/17/22 03:12 36.6 C 73 16 171/79 H 97 03/16/22 23:53 36.3 C L 63 16 161/71 H 97 03/16/22 22:20 72 Laboratory Results 03/17/22 03/17/22 03/17/22 Range/Units 06:57 06:57 06:57 WBC 7.87 (4.8-10.8) K/uL RBC 3.70 L (4.2-5.4) M/uL Hgb 10.4 L (12.0-16.0) g/dL Hct 32.8 L (37-47) % MCV 88.6 (80-100) fL MCH 28.1 (25-34) pg MCHC 31.7 L (32-36) g/dL RDW Std Deviation 51.3 H (36.4-46.3) fL RDW Coeff of Bassem 15.9 H (11.5-14.5) % Plt Count 328 (130-400) K/uL MPV 9.2 (7.4-10.4) fL Immature Gran % (Auto) 0.3 % Neut % (Auto) 79.0 % Lymph % (Auto) 11.2 % Aiken % (Auto) 8.9 % Eos % (Auto) 0.5 % Baso % (Auto) 0.1 % Neut # (Auto) 6.22 (1.4-6.5) K/uL Lymph # (Auto) 0.88 L (1.2-3.4) K/uL Aiken # (Auto) 0.70 H (0.11-0.59) K/uL Eos # (Auto) 0.04 (0-0.5) K/uL Baso # (Auto) 0.01 (0-0.2) K/uL Immature Gran # (Auto) 0.02 (0.00-0.02) K/uL PT (9.0-12.0) Seconds INR (0.9-1.1) APTT (21.0-31.0) Seconds PTT Ratio Sodium 136 (136-145) mmol/L Potassium 3.5 (3.5-5.1) mmol/L Chloride 100 (98-107) mmol/L Carbon Dioxide 30 (21-32) mmol/L Anion Gap 6 (3-11) BUN 12 (6-23) mg/dl Creatinine 0.46 L (0.6-1.2) mg/dl Est Cr Clr Drug Dosing 60.7 ml/min Est GFR ( Amer) 102.9 ml/min Est GFR (Non-Af Amer) 88.8 ml/min BUN/Creatinine Ratio 26.1 H (10-20) Glucose 89 (70-99(Fasting)) mg/dl POC Glucose (70-99) mg/dl Estimat Average Glucose Pending Hemoglobin A1c Pending Calcium 8.6 (8.5-10.1) mg/dl Phosphorus 3.3 (2.5-4.9) mg/dl Magnesium 1.6 L (1.7-2.4) mg/dl Total Bilirubin (0.2-1.0) mg/dl AST (13-39) U/L ALT (7-52) U/L Alkaline Phosphatase (34-104) U/L Troponin I High Sens (0-14) pg/ml Total Protein (6.0-8.3) gm/dl Albumin (3.4-5.0) gm/dl Globulin (2.5-4.0) gm/dl Albumin/Globulin Ratio (0.9-2) Triglycerides 71 (0-150) mg/dl Cholesterol 102 (0-200) mg/dl LDL Cholesterol, Calc 38 mg/dl VLDL Cholesterol, Calc 14 (0-30) mg/dl HDL Cholesterol 50 mg/dl Cholesterol/HDL Ratio 2.0 (0-5) Urine Color Urine Appearance (Clear) Urine pH (4.5-7.5) Ur Specific Castine (1.000-1.030) Urine Protein (Negative) Urine Glucose (UA) (Negative) Urine Ketones (Negative) Urine Blood (Negative) Urine Nitrite (Negative) Urine Bilirubin (Negative) Urine Urobilinogen (Negative) Ur Leukocyte Esterase (Negative) Urine WBC (Auto) (0-5) /hpf Urine RBC (Auto) (0-4) /hpf U Hyaline Cast (Auto) (0-5) /lpf U Epithel Cells (Auto) (0-5) /lpf Urine Bacteria (Auto) (Negative) Nasal Screen MRSA (PCR) (Negative) Stool Occult Bld Scrn (Negative) SARS-CoV-2, RNA, NAAT (NEGATIVE) 03/17/22 03/17/22 03/16/22 Range/Units 06:00 06:00 Unknown WBC (4.8-10.8) K/uL RBC (4.2-5.4) M/uL Hgb (12.0-16.0) g/dL Hct (37-47) % MCV (80-100) fL MCH (25-34) pg MCHC (32-36) g/dL RDW Std Deviation (36.4-46.3) fL RDW Coeff of Bassem (11.5-14.5) % Plt Count (130-400) K/uL MPV (7.4-10.4) fL Immature Gran % (Auto) % Neut % (Auto) % Lymph % (Auto) % Aiken % (Auto) % Eos % (Auto) % Baso % (Auto) % Neut # (Auto) (1.4-6.5) K/uL Lymph # (Auto) (1.2-3.4) K/uL Aiken # (Auto) (0.11-0.59) K/uL Eos # (Auto) (0-0.5) K/uL Baso # (Auto) (0-0.2) K/uL Immature Gran # (Auto) (0.00-0.02) K/uL PT (9.0-12.0) Seconds INR (0.9-1.1) APTT (21.0-31.0) Seconds PTT Ratio Sodium (136-145) mmol/L Potassium (3.5-5.1) mmol/L Chloride (98-107) mmol/L Carbon Dioxide (21-32) mmol/L Anion Gap (3-11) BUN (6-23) mg/dl Creatinine (0.6-1.2) mg/dl Est Cr Clr Drug Dosing ml/min Est GFR ( Amer) ml/min Est GFR (Non-Af Amer) ml/min BUN/Creatinine Ratio (10-20) Glucose (70-99(Fasting)) mg/dl POC Glucose (70-99) mg/dl Estimat Average Glucose Hemoglobin A1c Calcium (8.5-10.1) mg/dl Phosphorus (2.5-4.9) mg/dl Magnesium (1.7-2.4) mg/dl Total Bilirubin (0.2-1.0) mg/dl AST (13-39) U/L ALT (7-52) U/L Alkaline Phosphatase (34-104) U/L Troponin I High Sens (0-14) pg/ml Total Protein (6.0-8.3) gm/dl Albumin (3.4-5.0) gm/dl Globulin (2.5-4.0) gm/dl Albumin/Globulin Ratio (0.9-2) Triglycerides (0-150) mg/dl Cholesterol (0-200) mg/dl LDL Cholesterol, Calc mg/dl VLDL Cholesterol, Calc (0-30) mg/dl HDL Cholesterol mg/dl Cholesterol/HDL Ratio (0-5) Urine Color Urine Appearance (Clear) Urine pH (4.5-7.5) Ur Specific Castine (1.000-1.030) Urine Protein (Negative) Urine Glucose (UA) (Negative) Urine Ketones (Negative) Urine Blood (Negative) Urine Nitrite (Negative) Urine Bilirubin (Negative) Urine Urobilinogen (Negative) Ur Leukocyte Esterase (Negative) Urine WBC (Auto) (0-5) /hpf Urine RBC (Auto) (0-4) /hpf U Hyaline Cast (Auto) (0-5) /lpf U Epithel Cells (Auto) (0-5) /lpf Urine Bacteria (Auto) (Negative) Nasal Screen MRSA (PCR) Negative (Negative) Stool Occult Bld Scrn Negative (Negative) SARS-CoV-2, RNA, NAAT NEGATIVE (NEGATIVE) 03/16/22 03/16/22 03/16/22 Range/Units 16:26 14:50 13:40 WBC 8.48 (4.8-10.8) K/uL RBC 3.63 L (4.2-5.4) M/uL Hgb 10.1 L (12.0-16.0) g/dL Hct 31.9 L (37-47) % MCV 87.9 (80-100) fL MCH 27.8 (25-34) pg MCHC 31.7 L (32-36) g/dL RDW Std Deviation 51.4 H (36.4-46.3) fL RDW Coeff of Bassem 15.7 H (11.5-14.5) % Plt Count 334 (130-400) K/uL MPV 9.0 (7.4-10.4) fL Immature Gran % (Auto) 0.5 % Neut % (Auto) 74.7 % Lymph % (Auto) 12.6 % Aiken % (Auto) 11.7 % Eos % (Auto) 0.4 % Baso % (Auto) 0.1 % Neut # (Auto) 6.34 (1.4-6.5) K/uL Lymph # (Auto) 1.07 L (1.2-3.4) K/uL Aiken # (Auto) 0.99 H (0.11-0.59) K/uL Eos # (Auto) 0.03 (0-0.5) K/uL Baso # (Auto) 0.01 (0-0.2) K/uL Immature Gran # (Auto) 0.04 H (0.00-0.02) K/uL PT (9.0-12.0) Seconds INR (0.9-1.1) APTT (21.0-31.0) Seconds PTT Ratio Sodium 134 L (136-145) mmol/L Potassium 3.8 (3.5-5.1) mmol/L Chloride 98 (98-107) mmol/L Carbon Dioxide 30 (21-32) mmol/L Anion Gap 6 (3-11) BUN 17 (6-23) mg/dl Creatinine 0.66 (0.6-1.2) mg/dl Est Cr Clr Drug Dosing 42.3 ml/min Est GFR ( Amer) 91.4 ml/min Est GFR (Non-Af Amer) 78.9 ml/min BUN/Creatinine Ratio 25.8 H (10-20) Glucose 87 (70-99(Fasting)) mg/dl POC Glucose (70-99) mg/dl Estimat Average Glucose Hemoglobin A1c Calcium 9.0 (8.5-10.1) mg/dl Phosphorus (2.5-4.9) mg/dl Magnesium 1.6 L (1.7-2.4) mg/dl Total Bilirubin 0.3 (0.2-1.0) mg/dl AST 12 L (13-39) U/L ALT 11 (7-52) U/L Alkaline Phosphatase 95 (34-104) U/L Troponin I High Sens 13.7 (0-14) pg/ml Total Protein 6.7 (6.0-8.3) gm/dl Albumin 3.2 L (3.4-5.0) gm/dl Globulin 3.5 (2.5-4.0) gm/dl Albumin/Globulin Ratio 0.9 (0.9-2) Triglycerides (0-150) mg/dl Cholesterol (0-200) mg/dl LDL Cholesterol, Calc mg/dl VLDL Cholesterol, Calc (0-30) mg/dl HDL Cholesterol mg/dl Cholesterol/HDL Ratio (0-5) Urine Color Yellow Urine Appearance Clear (Clear) Urine pH 6.5 (4.5-7.5) Ur Specific Castine 1.031 H (1.000-1.030) Urine Protein Negative (Negative) Urine Glucose (UA) Negative (Negative) Urine Ketones Negative (Negative) Urine Blood Negative (Negative) Urine Nitrite Negative (Negative) Urine Bilirubin Negative (Negative) Urine Urobilinogen Negative (Negative) Ur Leukocyte Esterase Trace H (Negative) Urine WBC (Auto) 1-5 (0-5) /hpf Urine RBC (Auto) 0-4 (0-4) /hpf U Hyaline Cast (Auto) 5-10 H (0-5) /lpf U Epithel Cells (Auto) >30 H (0-5) /lpf Urine Bacteria (Auto) Negative (Negative) Nasal Screen MRSA (PCR) (Negative) Stool Occult Bld Scrn (Negative) SARS-CoV-2, RNA, NAAT (NEGATIVE) 03/16/22 03/16/22 Range/Units 13:40 13:28 WBC (4.8-10.8) K/uL RBC (4.2-5.4) M/uL Hgb (12.0-16.0) g/dL Hct (37-47) % MCV (80-100) fL MCH (25-34) pg MCHC (32-36) g/dL RDW Std Deviation (36.4-46.3) fL RDW Coeff of Bassem (11.5-14.5) % Plt Count (130-400) K/uL MPV (7.4-10.4) fL Immature Gran % (Auto) % Neut % (Auto) % Lymph % (Auto) % Aiken % (Auto) % Eos % (Auto) % Baso % (Auto) % Neut # (Auto) (1.4-6.5) K/uL Lymph # (Auto) (1.2-3.4) K/uL Aiken # (Auto) (0.11-0.59) K/uL Eos # (Auto) (0-0.5) K/uL Baso # (Auto) (0-0.2) K/uL Immature Gran # (Auto) (0.00-0.02) K/uL PT 11.0 (9.0-12.0) Seconds INR 1.0 (0.9-1.1) APTT 22.6 (21.0-31.0) Seconds PTT Ratio 0.8 Sodium (136-145) mmol/L Potassium (3.5-5.1) mmol/L Chloride (98-107) mmol/L Carbon Dioxide (21-32) mmol/L Anion Gap (3-11) BUN (6-23) mg/dl Creatinine (0.6-1.2) mg/dl Est Cr Clr Drug Dosing ml/min Est GFR ( Amer) ml/min Est GFR (Non-Af Amer) ml/min BUN/Creatinine Ratio (10-20) Glucose (70-99(Fasting)) mg/dl POC Glucose 102 H (70-99) mg/dl Estimat Average Glucose Hemoglobin A1c Calcium (8.5-10.1) mg/dl Phosphorus (2.5-4.9) mg/dl Magnesium (1.7-2.4) mg/dl Total Bilirubin (0.2-1.0) mg/dl AST (13-39) U/L ALT (7-52) U/L Alkaline Phosphatase (34-104) U/L Troponin I High Sens (0-14) pg/ml Total Protein (6.0-8.3) gm/dl Albumin (3.4-5.0) gm/dl Globulin (2.5-4.0) gm/dl Albumin/Globulin Ratio (0.9-2) Triglycerides (0-150) mg/dl Cholesterol (0-200) mg/dl LDL Cholesterol, Calc mg/dl VLDL Cholesterol, Calc (0-30) mg/dl HDL Cholesterol mg/dl Cholesterol/HDL Ratio (0-5) Urine Color Urine Appearance (Clear) Urine pH (4.5-7.5) Ur Specific Castine (1.000-1.030) Urine Protein (Negative) Urine Glucose (UA) (Negative) Urine Ketones (Negative) Urine Blood (Negative) Urine Nitrite (Negative) Urine Bilirubin (Negative) Urine Urobilinogen (Negative) Ur Leukocyte Esterase (Negative) Urine WBC (Auto) (0-5) /hpf Urine RBC (Auto) (0-4) /hpf U Hyaline Cast (Auto) (0-5) /lpf U Epithel Cells (Auto) (0-5) /lpf Urine Bacteria (Auto) (Negative) Nasal Screen MRSA (PCR) (Negative) Stool Occult Bld Scrn (Negative) SARS-CoV-2, RNA, NAAT (NEGATIVE) Medications Administered Current Inpatient Medications Acetaminophen (Acetaminophen 325 Mg Tab) 650 mg PO QID PRN PRN Reason: Fever Or Pain Stop: 04/15/22 22:11 Apixaban (Apixaban 2.5 Mg Tab) 2.5 mg PO BID [facility] Stop: 04/15/22 22:11 Last Admin: 03/16/22 23:26 Dose: 2.5 mg Documented by: Artificial Tears (Artificial Tears) 1 drops OP Q2HWA PRN PRN Reason: IF NEEDED Stop: 04/16/22 05:59 Aspirin (Aspirin 81 Mg Ectab) [facility] [place] [facility] [place] Stop: 04/16/22 08:59 Atorvastatin Calcium (Atorvastatin 20 Mg Tab) [facility] [place] [facility] [place] Stop: 04/16/22 08:59 Bimatoprost (Bimatoprost 0.01% Op Soln 2.5 Ml Btl) 1 drops OP HS [facility] Stop: 04/15/22 22:11 Last Admin: 03/16/22 23:24 Dose: 1 drops Documented by: Cyanocobalamin (Cyanocobalamin (B-12) 500 Mcg Tablet) 2,000 mcg [facility] [place] [facility] [place] Stop: 04/16/22 08:59 Docusate Sodium (Docusate Sodium 100 Mg Cap) 100 mg PO Q24H PRN PRN Reason: Constipation Stop: 04/15/22 22:11 Donepezil HCl (Donepezil Hcl 5 Mg Tab) 5 mg PO DAILY [facility] Stop: 04/16/22 08:59 Ferrous Sulfate (Ferrous Sulfate 325 Mg Tab) 325 mg PO DAILY [facility]ANT[facility] Stop: 04/16/22 08:59 Folic Acid (Folic Acid 1 Mg Tab) 1 mg PO QAM [facility] Stop: 04/16/22 08:59 Levothyroxine Sodium (Levothyroxine Sodium 75 Mcg Tablet) 75 mcg PO DAILYBB ASHANTI Stop: 04/16/22 06:29 Last Admin: 03/17/22 05:52 Dose: 75 mcg Documented by: Lisinopril (Lisinopril 2.5 Mg Tab) 2.5 mg PO HS [facility] Stop: 04/16/22 20:59 Magnesium Oxide (Magnesium Oxide 400 Mg Tab) 400 mg PO QAM [facility] Stop: 04/16/22 09:14 Miscellaneous Information (Pharmacist Discharge Med Rec Consult) 1 ea N/A UD PRN PRN Reason: Consult Stop: 04/15/22 17:00 Polyethylene Glycol (Polyethylene (Miralax) 17 Gm Pack) 17 gm PO DAILY [facility]ANT[facility] Stop: 04/16/22 09:14 Potassium Chloride (Potassium Chloride Crtab 20 Meq Tabcr) 20 meq PO NOW STA Stop: 03/17/22 09:15 Sennosides (Senna 8.6 Mg Tab) 8.6 mg PO QAM [facility] Stop: 04/16/22 09:14 Timolol Maleate (Timolol Maleate 0.5% Op Soln 5 Ml Btl) 1 drops OP QAM [facility] Stop: 04/16/22 08:59 Vitamin D (Cholecalciferol 1,000 Units 25 Mcg Tab) 1,000 units PO QAM [facility] Stop: 04/16/22 08:59
[2022-03-17] MEDS: SODIUM CHLORIDE 0.9% 1000ML 1,000 ML IV SCH (09:41)
[2022-03-17] MEDS: CYANOCOBALAMIN (B-12) 500 MCG TABLET PO SCH (09:44)
[2022-03-17] MEDS: FERROUS SULFATE 325 MG TAB PO SCH (09:44)
[2022-03-17] MEDS: TIMOLOL MALEATE 0.5% OP SOLN 5 ML BTL OP SCH (09:44)
[2022-03-17] MEDS: APIXABAN 2.5 MG TAB PO SCH ×2 (09:44→22:19)
[2022-03-17] MEDS: CHOLECALCIFEROL 1,000 UNITS 25 MCG TAB PO SCH (09:45)
[2022-03-17] MEDS: ASPIRIN 81 MG ECTAB PO SCH (09:45)
[2022-03-17] MEDS: ATORVASTATIN 20 MG TAB PO SCH (09:46)
[2022-03-17] MEDS: DONEPEZIL HCL 5 MG TAB PO SCH (09:46)
[2022-03-17] MEDS: FOLIC ACID 1 MG TAB PO SCH (09:46)
[2022-03-17] MEDS: MAGNESIUM OXIDE 400 MG TAB PO SCH (09:54)
[2022-03-17] MEDS: SENNA 8.6 MG TAB PO SCH (09:54)
[2022-03-17] MEDS: POLYETHYLENE (MIRALAX) 17 GM PACK PO SCH (09:54)
[2022-03-17 09:55] LABS: Estimated Average Glucose 120 mg/dl; Hemoglobin A1C 5.8 % (4.5-5.6)
[2022-03-17] MEDS ORDERED: lisinopril 2.5 MG TAB PO ONE (10:20)
--- NOTE | 2022-03-17 11:40 | Consultation Report ---
DATE OF SERVICE: 03/16/2022 REASON FOR CONSULTATION: Left upper extremity weakness. 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 Per the Emergency Room documentation and per the patient, staff re ported left upper extremity weakness at noon. Left upper extremity became flaccid and lasted approxi mately 20 minutes. The staff also reported that the patient had difficulty standing on her left lowe r extremity. In the Emergency Room, no focal deficits were noted. The patient has a history of recurrent episodes of left facial and arm numbness with multiple vascula r evaluations including CTA and MRI, never showing an acute abnormality. Dr. Caro hypothesized franklin t she may have a migrainous phenomenon as she had had chronic headaches. She has had multiple ambula tory EEGs, which appeared to have been normal. I do not know and the patient does not know if she wa s ever empirically treated with anticonvulsants or empirically treated for migraine to see if these e pisodes would resolve. She has otherwise recently been well. No fevers, chills, sweats, chest pain, shortness of breath, ab dominal pain, nausea or vomiting. There was no accompanying headache. She denies slurred speech or facial droop. She is essentially blind; therefore, no visual changes were noted. She does note ongo ing visual hallucinations, which are sometimes frightening to her. She is followed by Dr. Ramirez in psychiatry who has been adjusting her Risperdal. In the Emergency Room, CT of the head and CTA o f the head and neck were unremarkable with the exception of high-grade stenosis of the right [employer], whi ch has previously been noted. Her labs were unremarkable including urinalysis, chest x-ray unremarka ble and electrocardiogram showing normal sinus rhythm, nonspecific ST abnormality. MRI of the brain, which I have reviewed, shows chronic moderately severe microvascular changes. No large vessel chris torial infarction and no acute abnormality. PAST MEDICAL HISTORY: As above. Additionally, central retinal vein occlusion of right eye, dyslipid emia, osteoporosis, hypertension, MTHFR mutation papillary carcinoma of the thyroid, small-bowel obst ruction, upper GI bleed, uterine prolapse. PAST SURGICAL HISTORY: Oophorectomy, bladder surgery, cataract surgery, hysterectomy, exploratory la parotomy with lysis of adhesions, mastectomy. ALLERGIES: TETANUS TOXOID, BACTRIM. SOCIAL HISTORY: Nonsmoker, nondrinker. The patient currently lives in a detention. FAMILY HISTORY: Notable for stroke, heart disease and hypertension. HOME MEDICATIONS: Include Tylenol, apixaban 2.5 b.i.d., tears, aspirin 81 mg, atorvastatin, vitamin D, B12, Colace, Aricept 5 mg daily, iron, folic acid, gabapentin 200 mg at bedtime, women's probiotic , Synthroid, lisinopril, Limigan, Biofreeze, nitrofurantoin, psyllium, Risperdal 0.5 at bedtime, Marco Antonio lol 1 drop q.a.m. PHYSICAL EXAMINATION: The patient is awake and alert. Speech and language are normal. Affect appro priate. The patient is oriented x3. She was unable to name due to blindness. There is no right/lef t confusion and the patient follows commands easily. Her vision is no hand waving. No fixed gaze pr eference is noted. No obvious facial asymmetry is noted. Motor; there is normal bulk and tone. Str ength in the upper and lowers were symmetric. There was no drift and there were equal rapid alternat ing movements. Symmetric reflexes, downgoing toes. [id number] was not attempted due to her visu al impairment. Sensation is intact to light touch bilaterally. IMPRESSION AND PLAN: This patient has had multiple episodes affecting the right hemisphere. Unclear to me whether or not there has ever been any weakness, but there have been recurrent episodes of left facial and left arm numbness, which Dr. Caro hypothesized after many negative images could be a mi grainous phenomenon. Multiple evaluations for seizures also were unremarkable. Unclear if there has ever been any treatment with an anticonvulsant other than theoretically gabapentin. I suspect this is a variation on ____. Reviewing her medication list, I defer to the hospital team as to the approp riate dosing of apixaban for her indication. I would not change antiplatelet therapy. Consider incr easing the dose of gabapentin to 200 mg in the evening and 100 mg in the morning for a week and then 200 mg twice a day. This could be prophylactic both for migrainous phenomenon and for seizure. I bhandari ve no objection to the patient being discharged if that is appropriate for the hospitalist team. She should see Dr. Caro in followup in 2-3 weeks. Job ID: [id number]
[2022-03-17] MEDS ORDERED: GABAPENTIN 100 MG CAP PO SCH (21:00)
[2022-03-17] MEDS ORDERED: risperiDONE 0.5 MG TABLET PO SCH (21:00)
[2022-03-17] MEDS ORDERED: lisinopril 2.5 MG TAB PO SCH (21:00)
[2022-03-17] MEDS: BIMATOPROST 0.01% OP SOLN 2.5 ML BTL OP SCH (22:19)
[2022-03-18] MEDS: LEVOTHYROXINE SODIUM 75 MCG TABLET PO SCH (06:28)
[2022-03-18 07:22] LABS: Basophils # (auto) 0.01 K/uL (0-0.2); Basophils % (auto) 0.2 %; Eosinophils # (auto) 0.09 K/uL (0-0.5); Eosinophils % (auto) 1.5 %; Hematocrit (blood only) 32.6 % (37-47); Hemoglobin 10.6 g/dL (12.0-16.0); Immature Granulocytes # (auto) 0.02 K/uL (0.00-0.02); Immature Granulocytes % (auto) 0.3 %; Lymphocytes # (auto) 0.88 K/uL (1.2-3.4); Lymphocytes % (auto) 14.6 %; Mean Corpuscular Hemoglobin 28.5 pg (25-34); Mean Corpuscular Hgb Conc 32.5 g/dL (32-36); Mean Corpuscular Volume 87.6 fL (80-100); Mean Platelet Volume 9.2 fL (7.4-10.4); Monocytes # (auto) 0.61 K/uL (0.11-0.59); Monocytes % (auto) 10.1 %; Neutrophils # (auto) 4.41 K/uL (1.4-6.5); Neutrophils % (auto) 73.3 %; Platelet Count 323 K/uL (130-400); RDW Coefficient of Variation 15.9 % (11.5-14.5); RDW Standard Deviation 50.7 fL (36.4-46.3); Red Blood Count 3.72 M/uL (4.2-5.4); White Blood Count 6.02 K/uL (4.8-10.8)
[2022-03-18 07:48] VITALS: TEMP 97.5; O2SAT 98
[2022-03-18 07:59] LABS: BUN Creatinine Ratio 29.3 (10-20); Calcium 8.7 mg/dl (8.5-10.1); Creatinine Clr Calc Pharmacy 48.2 ml/min; Est GFR (African American) 95.4 ml/min; Est GFR (Non-African American) 82.3 ml/min; Potassium 3.8 mmol/L (3.5-5.1)
[2022-03-18] MEDS: ASPIRIN 81 MG ECTAB PO SCH (08:24)
[2022-03-18] MEDS: APIXABAN 2.5 MG TAB PO SCH (08:24)
[2022-03-18] MEDS: DONEPEZIL HCL 5 MG TAB PO SCH (08:24)
[2022-03-18] MEDS: CYANOCOBALAMIN (B-12) 500 MCG TABLET PO SCH (08:24)
[2022-03-18] MEDS: CHOLECALCIFEROL 1,000 UNITS 25 MCG TAB PO SCH (08:24)
[2022-03-18] MEDS: POLYETHYLENE (MIRALAX) 17 GM PACK PO SCH (08:25)
[2022-03-18] MEDS: MAGNESIUM OXIDE 400 MG TAB PO SCH (08:25)
[2022-03-18] MEDS: FOLIC ACID 1 MG TAB PO SCH (08:25)
[2022-03-18] MEDS: SENNA 8.6 MG TAB PO SCH (08:25)
[2022-03-18] MEDS: FERROUS SULFATE 325 MG TAB PO SCH (08:25)
[2022-03-18] MEDS: ATORVASTATIN 20 MG TAB PO SCH (08:26)
[2022-03-18] MEDS: TIMOLOL MALEATE 0.5% OP SOLN 5 ML BTL OP SCH (08:28)
--- NOTE | 2022-03-18 08:33 | Hospitalist Progress Note ---
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 UA also obtained, unremarkable Labs reviewed, unremarkable Chest x-ray reviewed unremarkable On physical exam, patient is moving extremities, however gait was not assessed Ordered MRI brain, negative for any acute intracranial abnormality Therefore continued patient's apixaban and aspirin Also continue statin Obtained fasting lipid panel, LDL 38 Current A1c5.8% PT OT, speech eval telemetry Neurology consulted Obtained echo -EF 50 to 55%. Compared to prior study, changes are noted. Mild concentric LVH. There is a small sized inferior wall motion abnormality with hypokinesis of the segments. Aortic valve sclerosis mild, without significant aortic valvular stenosis. Borderline mitral valve prolapse. There is moderate mitral regurg. Injection of contrast documented no interatrial shunt. Consider adding gabapentin 100 qam for a week (to 200 mg HS), then increase to 200 BID This could be prophylactic both for migrainous phenomenon and for seizure.She should see Dr. Caro in followup in 2-3 weeks. pAfib -Continue Eliquis, EKG in ED shows normal sinus rhythm HTN -cont. lisinopril Hx of TIA -Continue aspirin, statin, Eliquis Hypothyroidism -Continue thyroxine History of hallucinations -cont. risperidone, and gabapentin DVT ppx: Eliquis Code: DNR/DNI Admission and Anticipated Discharge Date Admission Date: March 16, 2022 Subjective Patient seen in follow-up of left-sided weakness Currently patient has no symptoms, she is moving extremities Denies fevers, chills, chest pain, shortness of breath, abdominal pain, nausea vomiting MRI brain negative for any acute intracranial pathology Review of Systems Review of Systems: All systems reviewed & are unremarkable except as noted in Subjective Physical Exam Physical Exam: Constitutional:L WD/WN, vitals as a suze Eyes: pt blind ENMT: external ear and n ose normal, oropha rynx normal Neck: supple Respiratory: normal respiratory effort, lungs kvng ar to auscultation Cardiovascular:L RRR, no murmur, no edema Chest (Breasts): Chest: normal insp ection of chest Gastrointestinal ( Abdomen): normal bowel sound s, soft, nontender Musculoskeletal: extremities motor strength 5/5 Head /Neck/Chest: normo cephalic, head atr aumatic and neck s upple Skin: no rashes, warm an d dry Neurologic: Speech fluent, no facial asymmetry. Moves extremities . Strength 5 out of 5. Gait not as sessed Psychiatric: A+Ox3, euthymic af fect Results & Data Results & Data ([facility]) Vital Signs (Past 12 Hours) Vital Signs Temp Pulse Pulse Resp BP Pulse Ox 03/18/22 07:46 36.4 C L 70 18 153/81 H 98 03/18/22 06:40 71 03/18/22 02:48 36.5 C 65 18 110/68 93 03/17/22 22:47 65 20 123/81 96 03/17/22 22:20 67 Laboratory Results 03/18/22 03/18/22 03/17/22 Range/Units 06:58 06:58 06:57 WBC 6.02 (4.8-10.8) K/uL RBC 3.72 L (4.2-5.4) M/uL Hgb 10.6 L (12.0-16.0) g/dL Hct 32.6 L (37-47) % MCV 87.6 (80-100) fL MCH 28.5 (25-34) pg MCHC 32.5 (32-36) g/dL RDW Std Deviation 50.7 H (36.4-46.3) fL RDW Coeff of Bassem 15.9 H (11.5-14.5) % Plt Count 323 (130-400) K/uL MPV 9.2 (7.4-10.4) fL Immature Gran % (Auto) 0.3 % Neut % (Auto) 73.3 % Lymph % (Auto) 14.6 % Kershaw % (Auto) 10.1 % Eos % (Auto) 1.5 % Baso % (Auto) 0.2 % Neut # (Auto) 4.41 (1.4-6.5) K/uL Lymph # (Auto) 0.88 L (1.2-3.4) K/uL Kershaw # (Auto) 0.61 H (0.11-0.59) K/uL Eos # (Auto) 0.09 (0-0.5) K/uL Baso # (Auto) 0.01 (0-0.2) K/uL Immature Gran # (Auto) 0.02 (0.00-0.02) K/uL Sodium 135 L (136-145) mmol/L Potassium 3.8 (3.5-5.1) mmol/L Chloride 100 (98-107) mmol/L Carbon Dioxide 30 (21-32) mmol/L Anion Gap 5 (3-11) BUN 17 (6-23) mg/dl Creatinine 0.58 L (0.6-1.2) mg/dl Est Cr Clr Drug Dosing 48.2 ml/min Est GFR ( Amer) 95.4 ml/min Est GFR (Non-Af Amer) 82.3 ml/min BUN/Creatinine Ratio 29.3 H (10-20) Glucose 87 (70-99(Fasting)) mg/dl Estimat Average Glucose 120 mg/dl Hemoglobin A1c 5.8 H (4.5-5.6) % Calcium 8.7 (8.5-10.1) mg/dl Medications Administered Current Inpatient Medications Acetaminophen (Acetaminophen 325 Mg Tab) 650 mg PO QID PRN PRN Reason: Fever Or Pain Stop: 04/15/22 22:11 Apixaban (Apixaban 2.5 Mg Tab) 2.5 mg PO BID [facility] Stop: 04/15/22 22:11 Last Admin: 03/18/22 08:24 Dose: 2.5 mg Documented by: Artificial Tears (Artificial Tears) 1 drops OP Q2HWA PRN PRN Reason: IF NEEDED Stop: 04/16/22 05:59 Aspirin (Aspirin 81 Mg Ectab) [facility] [place] Stop: 04/16/22 08:59 Last Admin: 03/18/22 08:24 Dose: 81 mg Documented by: Atorvastatin Calcium (Atorvastatin 20 Mg Tab) 20 mg PO QAM [facility] Stop: 04/16/22 08:59 Last Admin: 03/18/22 08:26 Dose: 20 mg Documented by: Bimatoprost (Bimatoprost 0.01% Op Soln 2.5 Ml Btl) 1 drops OP HS [facility] Stop: 04/15/22 22:11 Last Admin: 03/17/22 22:19 Dose: 1 drops Documented by: Cyanocobalamin (Cyanocobalamin (B-12) 500 Mcg Tablet) 2,000 mcg PO QAM [facility] Stop: 04/16/22 08:59 Last Admin: 03/18/22 08:24 Dose: 2,000 mcg Documented by: Docusate Sodium (Docusate Sodium 100 Mg Cap) 100 mg PO Q24H PRN PRN Reason: Constipation Stop: 04/15/22 22:11 Donepezil HCl (Donepezil Hcl 5 Mg Tab) 5 mg PO DAILY [facility] Stop: 04/16/22 08:59 Last Admin: 03/18/22 08:24 Dose: 5 mg Documented by: Ferrous Sulfate (Ferrous Sulfate 325 Mg Tab) 325 mg PO DAILY [facility] Stop: 04/16/22 08:59 Last Admin: 03/18/22 08:25 Dose: 325 mg Documented by: Folic Acid (Folic Acid 1 Mg Tab) [facility] [place] Stop: 04/16/22 08:59 Last Admin: 03/18/22 08:25 Dose: 1 mg Documented by: Gabapentin (Gabapentin 100 Mg Cap) 200 mg PO [facility] Stop: 04/16/22 20:59 Last Admin: 03/17/22 17:18 Dose: 200 mg Documented by: Gabapentin (Gabapentin 100 Mg Cap) 100 mg PO QAM [facility] Stop: 04/17/22 08:59 Levothyroxine Sodium (Levothyroxine Sodium 75 Mcg Tablet) [facility]: 04/16/22 06:29 Last Admin: 03/18/22 06:28 Dose: 75 mcg Documented by: Lisinopril (Lisinopril 2.5 Mg Tab) 2.5 mg PO [facility] Stop: 04/16/22 20:59 Last Admin: 03/17/22 22:19 Dose: 2.5 mg Documented by: Magnesium Oxide (Magnesium Oxide 400 Mg Tab) 400 mg PO QAM [facility] Stop: 04/16/22 09:14 Last Admin: 03/18/22 08:25 Dose: 400 mg Documented by: Miscellaneous Information (Pharmacist Discharge Med Rec Consult) 1 ea N/A UD PRN PRN Reason: Consult Stop: 04/15/22 17:00 Polyethylene Glycol (Polyethylene (Miralax) 17 Gm Pack) 17 gm PO DAILY [facility] Stop: 04/16/22 09:14 Last Admin: 03/18/22 08:25 Dose: 17 gm Documented by: Risperidone (Risperidone 0.5 Mg Tablet) 0.5 mg PO HS [facility] Stop: 04/16/22 20:59 Last Admin: 03/17/22 17:19 Dose: 0.5 mg Documented by: Sennosides (Senna 8.6 Mg Tab) 8.6 mg [facility] [place] Stop: 04/16/22 09:14 Last Admin: 03/18/22 08:25 Dose: 8.6 mg Documented by: Timolol Maleate (Timolol Maleate 0.5% Op Soln 5 Ml Btl) 1 drops OP [facility] Stop: 04/16/22 08:59 Last Admin: 03/18/22 08:28 Dose: 1 drops Documented by: Vitamin D (Cholecalciferol 1,000 Units 25 Mcg Tab) 1,000 units PO QAM [facility] Stop: 04/16/22 08:59 Last Admin: 03/18/22 08:24 Dose: 1,000 units Documented by:
[2022-03-18] MEDS ORDERED: GABAPENTIN 100 MG CAP PO SCH (09:00)
[2022-03-18] MEDS ORDERED: STROKE PATIENT DISCHARGE STA (10:17)
--- NOTE | 2022-03-18 10:22 | Discharge Summary ---
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 Per ED documentation, staff reported left-sided weakness, LUE became flaccid at noon and episode lasted about 20 min. They also reported that patient had difficulty standing/left lower extremity weakness. Symptoms resolved prior to coming to the ED. Per EMS, no focal deficits. I called [facility], however without answer. We will try to contact them again, to obtain more thorough history. Patient herself does not remember episode very well. She only remembers that she was sitting in a wheelchair, and possibly felt weak on the left side. She denies any recent sickness. Specifically denies any fevers, chills, chest pain, shortness of breath, abdominal pain, nausea or vomiting. Denies any headache. History of blindness, therefore no changes in vision noted. In the ED CT head, CTA head and neck unremarkable. 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 UA was also obtained, and unremarkable. Patient does not have any urinary symptoms at this time. Chest x-ray unremarkable, labs reviewed, unremarkable. Patient admitted for observation. Admission Exam Per Admitting Provider Constitutional: WD/WN, vitals as above Eyes: pt blind ENMT: external ear and nose normal, oropharynx normal Neck: trachea midline, no thyromegaly Respiratory: normal respiratory effort, lungs clear to auscultation Cardiovascular: RRR, no murmur, no edema Chest (Breasts): Chest: normal inspection of chest Gastrointestinal (Abdomen): normal bowel sounds, soft, nontender, no hepatosplenomegaly Musculoskeletal: no cyanosis or clubbing, extremities motor strength 5/5 Head/Neck/Chest: normocephalic, head atraumatic and neck supple Skin: no rashes, warm and dry Neurologic: Speech fluent, no facial asymmetry. Moves extremities. Strength 5 out of 5. Gait not assessed Psychiatric: A+Ox3, euthymic affect Genitourinary: no CVA tenderness Lymphatic: no lymphedema Principal Diagnosis Left upper extremity weakness, strokelike symptoms possible seizure, possible migraine Discharge Exam Constitutional: WD/WN, vitals as above Eyes: pt blind ENMT: external ear and nose normal, oropharynx normal Neck: supple Respiratory: normal respiratory effort, lungs clear to auscultation Cardiovascular: RRR, no murmur, no edema Chest (Breasts): Chest: normal inspection of chest Gastrointestinal (Abdomen): normal bowel sounds, soft, nontender Musculoskeletal: extremities motor strength 5/5 Head/Neck/Chest: normocephalic, head atraumatic and neck supple Skin: no rashes, warm and dry Neurologic: Speech fluent, no facial asymmetry. Moves extremities. Strength 5 out of 5. Gait not assessed Psychiatric: A+Ox3, euthymic affect Discharge Data Allergies Allergy/AdvReac Type Severity Reaction Status Date / Time tetanus toxoid, adsorbed Allergy Mild SWELLING Verified 03/16/22 14:08 AND REDNESS sulfamethoxazole AdvReac Dizziness Verified 03/16/22 14:08 [From Bactrim] trimethoprim [From Bactrim] AdvReac Dizziness Verified 03/16/22 14:08 Consultations 03/16/22 17:02 Consult Neurology Routine 03/16/22 17:31 ED Decision to Admit Stat Ordered Studies 03/16/22 13:08 CT angio head w con Stat CT angio neck with con Stat CT head/brain wo con Stat IMPRESSION: 1. There is no hemorrhage, mass effect, or evidence of acute territorial ischemia by CT criteria. 2. 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 This is unchanged from prior studies. 3. Otherwise unremarkable CT angiogram of the brain. 4. Unremarkable CT angiogram of the neck. 03/16/22 17:06 MR brain wo/w con Urgent FINDINGS: Brain parenchyma: There is age-related involutional change noting moderate confluent subcortical and periventricular microangiopathic disease. There is no hemorrhage or mass effect. There is no restricted diffusion to suggest acute ischemia. No enhancing mass lesion is identified on the postcontrast images. Martel-white matter differentiation is preserved. No extra-axial fluid collection is seen. The cerebellar tonsils are normal in configuration. Ventricles, sulci, and cisterns: Prominent secondary to involutional change. Pituitary and sella: Unremarkable. Intracranial vasculature: Normal flow voids are maintained at the skull base. Orbits: The bony orbits are grossly intact. Orbital contents are normal in appearance noting a left ocular lens implant. Sinuses and mastoids: A large left mastoid effusions. The paranasal sinuses appear clear. Calvarium: Unremarkable. Cervical cord: Partially visualized cervical spinal cord is normal in morphology and signal intensity. IMPRESSION: No acute intracranial abnormality. 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 UA also obtained, unremarkable Labs reviewed, unremarkable Chest x-ray reviewed unremarkable On physical exam, patient is moving extremities, however gait was not assessed Ordered MRI brain, negative for any acute intracranial abnormality Therefore continued patient's apixaban and aspirin Also continue statin Obtained fasting lipid panel, LDL 38 Current A1c5.8% PT OT, speech eval telemetry Neurology consulted Obtained echo -EF 50 to 55%. Compared to prior study, changes are noted. Mild concentric LVH. There is a small sized inferior wall motion abnormality with hypokinesis of the segments. Aortic valve sclerosis mild, without significant aortic valvular stenosis. Borderline mitral valve prolapse. There is moderate mitral regurg. Injection of contrast documented no interatrial shunt. Consider adding gabapentin 100 qam for a week (to 200 mg HS), then increase to 200 BID This could be prophylactic both for migrainous phenomenon and for seizure.She should see Dr. Caro in followup in 2-3 weeks. pAfib -Continue Eliquis, EKG in ED shows normal sinus rhythm HTN -cont. lisinopril Hx of TIA -Continue aspirin, statin, Eliquis Hypothyroidism -Continue thyroxine History of hallucinations -cont. risperidone, and gabapentin Total Time Total Time Spent Total Time Spent (In Minutes): 40 Discharge Plan Discharge Items Patient Disposition: Transfer Group Home Fac Reason For Visit: TIA/STROKE Discharge Diagnosis: Left upper extremity weakness, strokelike symptoms possible seizure, possible migraine Activity: Per Instructions section Non-emergency contact: Primary Care Provider and Neurologist Call non-emergency contact if: you have any medication questions and your symptoms worsen Follow-up/Referrals: Satnam Ng at [facility] [Primary Care Provider] - Diet: Heart Healthy Diet Texture: Easy to Chew Addtl Attending Provider Instructions: It was recommended to start gabapentin 100 mg daily in addition to your 200 mg at night. Continue with this dose for 1 week. Then increase to 200 mg twice a day. Follow-up with neurology, Dr. Caro, in 2 to 3 weeks. Pending Studies at Discharge: No Stand-Alone Forms: [facility] Skilled Items Patient informed of condition?: Yes DNR: Yes Discharge Level of Care: Skilled Communicable Disease: No Discharge Prognosis: Stable Lines: None Urinary Catheter: No Medications and DC Order Prescriptions: New gabapentin 100 mg Capsule 100 mg PO QAM Qty: 7 RF: 0 polyethylene glycol 3350 [Miralax] 17 gram Powder In Packet 17 g PO DAILY PRN (Reason: constipation) Qty: 14 RF: 0 sennosides [Senokot] 8.6 mg Tablet 8.6 mg PO QAM Qty: 10 RF: 0 Continued folic acid 1 mg Tablet 1 mg PO QAM Qty: 0 RF: 0 cholecalciferol (vitamin D3) 1,000 unit Capsule 1,000 unit PO QAM Qty: 0 RF: 0 atorvastatin [Lipitor] 20 mg Tablet 20 mg PO QAM Qty: 0 RF: 0 Eliquis 2.5 mg Tablet 2.5 mg PO BID Qty: 0 RF: 0 cyanocobalamin (vitamin B-12) 1,000 mcg Capsule 2,000 mcg PO QAM Qty: 0 RF: 0 Lumigan 0.01 % Drops 1 drp OPB HS RF: 0 psyllium Powder See Rx Instructions .ROUTE .COMPLEX RF: 0 timolol maleate 0.5 % drops 1 drp OPL QAM RF: 0 gabapentin 100 mg capsule 200 mg PO HS Qty: 60 RF: 5 levothyroxine [Synthroid] 75 mcg tablet 75 mcg PO QAM RF: 0 nitrofurantoin macrocrystal 50 mg capsule 50 mg PO HS RF: 0 risperidone 0.5 mg tablet 0.5 mg PO HS RF: 0 aspirin [Aspirin Childrens] 81 mg Tablet,Chewable 81 mg PO QAM RF: 0 Artificial Tears (PF) Dropperette 1 drp OPB .EVERY 2 HOURS W/A RF: 0 acetaminophen 325 mg Tablet 650 mg PO QID MDD 3g PRN (Reason: Fever Or Pain) RF: 0 lisinopril 2.5 mg Tablet 2.5 mg PO HS Qty: 30 RF: 0 donepezil 5 mg tablet 5 mg PO DAILY RF: 0 ferrous sulfate [iron] 325 mg (65 mg iron) Tablet 325 mg PO DAILY RF: 0 docusate sodium 100 mg Capsule 100 mg PO Q24H PRN (Reason: Constipation) RF: 0 Biofreeze (menthol) 4 % Gel 1 applic TOPICAL Q4H PRN (Reason: Pain) RF: 0 Women's Probiotic 25B cell-25B cell-50 mg Capsule 0 cap PO DAILY RF: 0 apixaban 2.5 MG 2.5 mg PO BID RF: 0 Discharge Orders: Discharge Order (Routine); Ordered 03/18/22 Ordered By: Ronald Castaneda Admission Data Admit Date/Time: 03/16/22 17:01 Attending Provider: Ronald Castaneda Admit Provider: Ronald Castaneda Primary Care Provider: Satnam Ng [facility] Other Providers: Angela Phillip ; Ronald Castaneda
[2022-03-18 11:36] VITALS: BP 99/65; PULSE 66
== END 2022-03-18 15:30 ==
LOC: ED 12:59 → 2N 12:59